=== PATIENT | male | born 1950 | race Caucasian/White ===

== ENCOUNTER 2020-05-18 10:48 | Outpatient (REF) | payer OTHER, SELFPAY ==
[2020-05-18 12:02] LABS: MANUAL DIFF FLAG NO
[2020-05-18 12:08] LABS: Basophils Absolute Auto 0.1 X10*3/uL (0.0-0.2); Basophils Percent Auto 0.6 % (0-2); Eosinophils Absolute Auto 0.2 X10*3/uL (0.0-0.4); Eosinophils Percent Auto 2.2 % (0-4); Hematocrit 41.2 % (42-52); Hemoglobin 13.1 g/dl (14.0-18.0); Imm Gran Abs Auto 0.03 X10*3/uL (0.00-0.03); Imm Gran Pct Auto 0.3 % (0.0-0.4); Lymphocytes Percent Auto 19.4 % (20-40); Mean Corpuscular HGB Conc 31.8 g/dl (31.0-36.0); Mean Corpuscular Volume 91.4 fL (80-98); Mean Platelet Volume 10.3 fL (9.4-12.4); Monocytes Absolute Auto 0.9 X10*3/uL (0.1-1.2); Monocytes Percent Auto 8.7 % (2-11); Neutrophils Absolute Auto 7.2 X10*3/uL (2.0-8.3); Neutrophils Percent Auto 68.8 % (45-73); Platelet Count 247 X10*3/uL (160-400); Red Blood Count 4.51 X10*6/uL (4.60-5.80); Red Cell Distribution Width 14.1 % (11.0-16.0); White Blood Count 10.5 X10*3/uL (4.8-10.8)
[2020-05-18 12:42] LABS: Anion Gap 17 (12-20); Blood Urea Nitrogen 37 mg/dL (9-16); Carbon Dioxide 23 mmol/L (22-29); Chloride 103 mmol/L (96-108); Cholesterol 136 mg/dL; Estimated Glomerular Filt Rate 48; Glucose Fasting 94 mg/dL (60-99); HDL Cholesterol 36 mg/dL; LDL Cholesterol Calculated 74 mg/dl; Potassium 5.8 mmol/l (3.3-5.1); Sodium 137 mmol/L (135-145); Triglycerides 131 mg/dL
[2020-05-18 12:44] LABS: Estimated Average Glucose 163 mg/dL; Hemoglobin A1c % 7.3 %
== END 2020-05-18 10:49 | disposition home or self-care (01) ==
LOC: HO.LAB 10:48
PROVIDERS: PCP Internal Medicine; Visit Provider Nurse Practitioner Family
DX: E11.9 Type 2 diabetes mellitus without complications (principal)
CPT/HCPCS: 36415; 80048; 80061; 83036; 85025

== ENCOUNTER 2020-06-09 15:03 | Outpatient (REF) | payer MEDICARE, SELFPAY ==
--- NOTE | 2020-06-09 16:12 | XR_ITS ---
EXAMINATION: XR CHEST CLINICAL INFORMATION: R09.89 - Other specified symptoms and signs involving the circulatory and respiratory systems COMPARISON: None TECHNIQUE: 2 views of the chest were obtained. FINDINGS: There is a unipolar AICD with right ventricular lead. There has been prior median sternotomy. The superiormost sternotomy wire is discontinuous. The heart is normal in size. The vascularity is normal. There is no vascular congestion, airspace consolidation, or groundglass opacity. The costophrenic sulci are clear. The hilar and mediastinal contours and visualized bony structures are unremarkable. XR/XR chest 2V IMPRESSION: Unremarkable examination.
== END 2020-06-09 15:04 | disposition home or self-care (01) ==
LOC: HO.XRAY 15:03
PROVIDERS: PCP Internal Medicine; Visit Provider Hospitalist
DX: R09.89 Other specified symptoms and signs involving the circulatory and respiratory systems (principal); R60.0 Localized edema; G47.34 Idiopathic sleep related nonobstructive alveolar hypoventilation
CPT/HCPCS: 71046; 99202

== ENCOUNTER → 2020-06-13 12:50 | Outpatient (REF) | payer MEDICARE, SELFPAY | LOC: HO.SL 12:50 | PROVIDERS: Visit Provider Hospitalist | DX: G47.33 Obstructive sleep apnea (adult) (pediatric) (principal) | CPT/HCPCS: 95806 ==

== ENCOUNTER 2020-06-13 14:17 | Outpatient (REF) | payer MEDICARE, SELFPAY | END 2020-06-13 14:18 | disposition home or self-care (01) | LOC: HO.LAB 14:17 | PROVIDERS: PCP Internal Medicine; Visit Provider Internal Medicine | DX: Z20.828 Contact with and (suspected) exposure to other viral communicable diseases (principal) | CPT/HCPCS: C9803; U0003 ==

== ENCOUNTER 2020-07-20 10:30 | Outpatient (REF) | payer MEDICARE, SELFPAY ==
[2020-07-20 12:35] LABS: B Type Natriuretic Peptide 101 pg/mL (<100)
[2020-07-20 12:42] LABS: Anion Gap 12 (12-20); Blood Urea Nitrogen 41 mg/dL (9-16); Calcium 9.1 mg/dL (8.4-10.2); Carbon Dioxide 28 mmol/L (22-29); Chloride 102 mmol/L (96-108); Estimated Glomerular Filt Rate 41; Glucose Random 172 mg/dL (60-115); Potassium 5.1 mmol/l (3.3-5.1); Sodium 137 mmol/L (135-145)
== END 2020-07-20 10:31 | disposition home or self-care (01) ==
LOC: HO.LAB 10:30
PROVIDERS: PCP Internal Medicine; Visit Provider Nurse Practitioner Family
DX: I42.9 Cardiomyopathy, unspecified (principal); I50.22 Chronic systolic (congestive) heart failure; I25.10 Atherosclerotic heart disease of native coronary artery without angina pectoris; Z95.1 Presence of aortocoronary bypass graft; Z95.810 Presence of automatic (implantable) cardiac defibrillator; I10 Essential (primary) hypertension; E78.5 Hyperlipidemia, unspecified
CPT/HCPCS: 80048; 83880; 93005; Q3014

== ENCOUNTER → 2020-08-03 10:37 | Outpatient (BNVA) | payer MEDICARE, SELFPAY | PROVIDERS: PCP Internal Medicine; Referring Provider Internal Medicine; Visit Provider Nurse Practitioner Gerontology | DX: Z13.89 Encounter for screening for other disorder (principal) | CPT/HCPCS: Q3014 ==

== ENCOUNTER 2020-08-08 08:49 | Outpatient (REF) | payer MEDICARE, SELFPAY ==
[2020-08-08 10:56] LABS: B Type Natriuretic Peptide 78 pg/mL (<100)
[2020-08-08 11:00] LABS: Alanine Aminotransferase 26 U/L (0-40); Albumin Level 3.8 g/dL (3.5-5.0); Alkaline Phosphatase 55 U/L (39-117); Anion Gap 14 (12-20); Aspartate Amino Transferase 29 U/L (5-37); Bilirubin Total 0.2 mg/dL (0.0-1.0); Blood Urea Nitrogen 25 mg/dL (9-16); Calcium 8.2 mg/dL (8.4-10.2); Carbon Dioxide 27 mmol/L (22-29); Chloride 100 mmol/L (96-108); Cholesterol 111 mg/dL; Estimated Glomerular Filt Rate 39; Glucose Fasting 201 mg/dL (60-99); HDL Cholesterol 35 mg/dL; LDL Cholesterol Calculated 52 mg/dl; Potassium 5.5 mmol/l (3.3-5.1); Sodium 135 mmol/L (135-145); Triglycerides 124 mg/dL
[2020-08-08 11:12] LABS: Estimated Average Glucose 151 mg/dL; Hemoglobin A1c % 6.9 %
[2020-08-08 11:41] LABS: Creatinine Urine 293.54 mg/dL
[2020-08-08 12:41] LABS: Microalbum/Creatinine Ratio Ur 2270.5 ug/mg cr
[2020-08-09 07:57] LABS: LDL Cholesterol Direct 52 mg/dL (<100)
== END 2020-08-08 08:50 | disposition home or self-care (01) ==
LOC: HO.LAB 08:49
PROVIDERS: Nurse Practitioner Family; Nurse Practitioner Gerontology; Visit Provider Internal Medicine
DX: Z20.822 Contact with and (suspected) exposure to COVID-19 (principal); I50.22 Chronic systolic (congestive) heart failure; E11.42 Type 2 diabetes mellitus with diabetic polyneuropathy
CPT/HCPCS: 36415; 80053; 80061; 82043; 83036; 83721; 83880; 99212; C9803; U0003

== ENCOUNTER 2020-08-08 09:31 | Outpatient (REF) | payer MEDICARE, SELFPAY | END 2020-08-08 09:32 | disposition home or self-care (01) | LOC: HO.LAB 09:31 | PROVIDERS: Visit Provider Nurse Practitioner Gerontology | DX: Z13.89 Encounter for screening for other disorder (principal) ==

== ENCOUNTER → 2020-08-11 14:21 | Outpatient (BNVA) | payer MEDICARE, SELFPAY | PROVIDERS: PCP Internal Medicine; Visit Provider Hospitalist | DX: J40 Bronchitis, not specified as acute or chronic (principal); G47.33 Obstructive sleep apnea (adult) (pediatric) | CPT/HCPCS: Q3014 ==

== ENCOUNTER 2020-08-19 12:37 | Outpatient (REF) | payer MEDICARE, SELFPAY | END 2020-08-19 12:38 | disposition home or self-care (01) | LOC: HO.LAB 12:37 | PROVIDERS: Visit Provider Internal Medicine | DX: Z20.822 Contact with and (suspected) exposure to COVID-19 (principal) | CPT/HCPCS: 36415; C9803; U0003 ==

== ENCOUNTER 2020-08-23 10:49 | Outpatient (REF) | payer MEDICARE, SELFPAY ==
[2020-08-23 12:29] LABS: Alanine Aminotransferase 28 U/L (0-40); Albumin Level 3.6 g/dL (3.5-5.0); Alkaline Phosphatase 52 U/L (39-117); Anion Gap 15 (12-20); Aspartate Amino Transferase 23 U/L (5-37); Bilirubin Total 0.4 mg/dL (0.0-1.0); Blood Urea Nitrogen 35 mg/dL (9-16); Calcium 10.2 mg/dL (8.4-10.2); Carbon Dioxide 28 mmol/L (22-29); Chloride 99 mmol/L (96-108); Estimated Glomerular Filt Rate 49; Glucose Fasting 126 mg/dL (60-99); Potassium 5.1 mmol/l (3.3-5.1); Sodium 137 mmol/L (135-145)
[2020-08-23 12:33] LABS: B Type Natriuretic Peptide 91 pg/mL (<100)
== END 2020-08-23 10:50 | disposition home or self-care (01) ==
LOC: HO.LAB 10:49
PROVIDERS: Absent Provider Nurse Practitioner Family; PCP Internal Medicine; Referring Provider Internal Medicine; Visit Provider Nurse Practitioner Gerontology
DX: I50.22 Chronic systolic (congestive) heart failure (principal); E11.65 Type 2 diabetes mellitus with hyperglycemia; I42.9 Cardiomyopathy, unspecified; Z79.4 Long term (current) use of insulin
CPT/HCPCS: 36415; 80048; 80053; 83880

== ENCOUNTER → 2020-08-30 13:00 | Outpatient (REF) | payer MEDICARE, SELFPAY ==
--- NOTE | 2020-08-30 13:04 | CA_ITS ---
Transthoracic Echocardiogram Patient (Last, First, Middle): Ed Erwin, Gender: Male Date of : 1950 Age: 70 Procedure Date: 08/30/2020 Procedure Type: Transthoracic Echocardiogram Location: OP Height: 170.18 cm Weight: 102.97 kg BSA: 2.13 m2 Heart Rate: bpm BP: 130 / 80 mmHg Painter Chassis: SATHYA Referring MD: Liz Caro [employer]C Symptoms: I42.9 - Cardiomyopathy, unspecified Study Quality: Technically Difficult ECG Rhythm: Sinus Conclusions: - The left ventricular systolic function is low normal. The visually estimated ejection fraction is between 50-55%. - There is mild calcification of the aortic valve. Findings Procedure Information Contrast agent, definity, is being given per protocol without apparent complications. Left Ventricle Normal left ventricular cavity size. There is mildly increased left ventricular wall thickness. The left ventricular systolic function is low normal. The visually estimated ejection fraction is between 50-55%. E/E prime ratio is between 8 and 15 consistent with indeterminate filling pressures. Evidence suggests grade I (mild) diastolic dysfunction. Right Ventricle Normal right ventricular cavity size and systolic function. There is an ICD wire seen in the right ventricle. Atria The left atrium is normal in size. The right atrium is normal in size. Aortic Valve There is a normal trileaflet aortic valve. There is mild calcification of the aortic valve. There is no aortic valve stenosis. There is no aortic valve regurgitation. Mitral Valve The mitral valve appears normal. There is no mitral valve regurgitation. There is no mitral valve stenosis. Pulmonic Valve The pulmonic valve was not well visualized. Tricuspid Valve There is trace tricuspid valve regurgitation. The pulmonary artery systolic pressure is normal. Great Vessels The aortic annulus, sinuses of valsalva, and asc aorta are normal in size. Venous The inferior vena cava is normal in size and collapses greater than 50% with inspiration. Pericardium/Pleural There is no evidence of pericardial effusion. Prior Study Comparison Changes noted compared to prior study dated: 09/04/2019. LVEF seems improved. Measurements 2D Linear Measurements IVSd: 1.04 0.6-0.9/0.6-1.0 cm LVIDd: 4.98 3.9-5.3/4.2-5.9 cm LVIDd Index: 2.34 2.4-3.2/2.2-3.1 cm/m2 LVIDs: 3.67 2.0-3.6 cm LVPWd: 1.03 0.7-1.1 cm Ao Root: 3.20 2.1-3.5 cm LA Diam: 4.10 2.7-3.8/3.0-4.0 cm LAIDs Index: 1.92 1.5-2.3 cm/m2 LV Mass: 235.97 67-162/88-224 g LV Mass Index: 110.79 43-95/49-115 g/m2 LVOT Diam: 2.10 3.0+(-)1.3 cm 2D Systolic Function EF 4C: 58.40 >55% EF 2C: 51.80 >55% Mitral Valve MV Pk E: 0.83 MV PK A: 1.09 MV Decel Time: 203.00 E/A: 0.80 E'Lateral: 7.07 E'Medial: 4.46 E/E' Med: 18.50 E/E' Lat: 11.70 PHT: 59.00 MVA PHT: 3.73 Decel Boyd: 4.08 Aortic Valve AoV Pk Teddy: 1.25 AoV Mn Teddy: 0.95 AoV VTI: 0.26 AoV Pk Grad: 6.00 Aov Mn Grad: 4.00 NAM Cont.VTI: 2.35 LVOT LVOT Pk Teddy: 0.78 LVOT Mn Teddy: 0.53 LVOT VTI: 0.18 LVOT Pk Grad: 2.00 LVOT Mn Grad: 1.00 LVOT Diam: 2.10 LVOT Area: 3.46 Diastolic Function MV Pk E: 0.83 MV Pk A: 1.09 E/A: 0.80 E'Medial: 4.46 E/E' Med: 18.50 E' Laterial: 7.07 E/E' Lat: 11.70 Tricuspid Valve TR Pk Teddy: 2.46 TR Pk Grad: 24.00 RA Press: 8.00 RVSP: 32.00 Great Vessels Aorta Ao Root-2D: 3.20 2.0-3.7 cm Ao Asc: 3.40 2.1-3.4 cm Updated in Other Vendor System with Status of Final Joey Vickers MD electronically signed on 08/31/2020 11:35:44 AM with status of Final
== END ==
LOC: HO.CARD 13:00
PROVIDERS: Visit Provider Nurse Practitioner Family
DX: I42.9 Cardiomyopathy, unspecified (principal)
CPT/HCPCS: 93306; Q9957

== ENCOUNTER → 2020-09-02 09:55 | Outpatient (BNVA) | payer MEDICARE, SELFPAY | PROVIDERS: PCP Internal Medicine; Visit Provider Nurse Practitioner Gerontology | DX: Z13.89 Encounter for screening for other disorder (principal) | CPT/HCPCS: Q3014 ==

== ENCOUNTER 2020-09-08 13:52 | Outpatient (REF) | payer MEDICARE, SELFPAY ==
--- NOTE | ~2020-09-08 | US_ITS ---
EXAMINATION: US RETROPERITONEAL LIMITED (RENAL ONLY) CLINICAL INFORMATION: Chronic kidney disease, stage III. COMPARISON: None TECHNIQUE: Real-time imaging of the kidneys. FINDINGS: RIGHT KIDNEY: 12.2 x 5.5 x 5.3 cm (SAG x AP x TRV). The kidney is normal in size, contour, and echogenicity. Renal cortical thickness is normal. No renal calculi or hydronephrosis. 1.1 x 1.5 x 1.3 cm cyst at the midpole. LEFT KIDNEY: 12.7 x 5.5 x 3.7 cm (SAG x AP x TRV). The kidney is normal in size, contour, and echogenicity. Renal cortical thickness is normal. No calculi or focal parenchymal lesions. No hydronephrosis. US/US renal BI IMPRESSION: Right midpole renal cyst. Otherwise unremarkable appearance of the kidneys.
== END 2020-09-08 13:53 | disposition home or self-care (01) ==
LOC: HO.US 13:52
PROVIDERS: Visit Provider Internal Medicine Hypertension Specialist
DX: I12.9 Hypertensive chronic kidney disease with stage 1 through stage 4 chronic kidney disease, or unspecified chronic kidney disease (principal); N18.30 Chronic kidney disease, stage 3 unspecified
CPT/HCPCS: 76775

== ENCOUNTER → 2020-10-14 13:00 | Outpatient (BNVA) | payer MEDICARE, SELFPAY | PROVIDERS: PCP Internal Medicine; Visit Provider Nurse Practitioner Gerontology | DX: E11.649 Type 2 diabetes mellitus with hypoglycemia without coma (principal); E11.42 Type 2 diabetes mellitus with diabetic polyneuropathy; E66.01 Morbid (severe) obesity due to excess calories; Z68.35 Body mass index [BMI] 35.0-35.9, adult; E78.5 Hyperlipidemia, unspecified; I10 Essential (primary) hypertension; Z79.4 Long term (current) use of insulin; Z71.3 Dietary counseling and surveillance | CPT/HCPCS: 82947; 99212 ==

== ENCOUNTER → 2020-10-21 14:03 | Outpatient (BNVA) | payer MEDICARE, SELFPAY | PROVIDERS: PCP Internal Medicine; Visit Provider Hospitalist | DX: J45.40 Moderate persistent asthma, uncomplicated (principal); G47.33 Obstructive sleep apnea (adult) (pediatric); B94.8 Sequelae of other specified infectious and parasitic diseases; Z79.899 Other long term (current) drug therapy | CPT/HCPCS: 99212 ==

== ENCOUNTER → 2020-10-27 13:52 | Outpatient (BNVA) | payer MEDICARE, SELFPAY | PROVIDERS: PCP Internal Medicine; Visit Provider Internal Medicine | DX: I25.5 Ischemic cardiomyopathy (principal); I50.33 Acute on chronic diastolic (congestive) heart failure; I25.10 Atherosclerotic heart disease of native coronary artery without angina pectoris; Z95.1 Presence of aortocoronary bypass graft; Z95.810 Presence of automatic (implantable) cardiac defibrillator | CPT/HCPCS: 99212 ==

== ENCOUNTER 2020-11-10 10:40 | Outpatient (REF) | payer MEDICARE, SELFPAY ==
[2020-11-10 11:39] LABS: B Type Natriuretic Peptide 148 pg/mL (<100)
[2020-11-10 11:46] LABS: Anion Gap 13 (12-20); Blood Urea Nitrogen 36 mg/dL (9-16); Calcium 8.7 mg/dL (8.4-10.2); Carbon Dioxide 26 mmol/L (22-29); Chloride 103 mmol/L (96-108); Estimated Glomerular Filt Rate 39; Glucose Random 142 mg/dL (60-115); Potassium 5.9 mmol/L (3.3-5.1); Sodium 136 mmol/L (135-145)
== END 2020-11-10 10:41 | disposition home or self-care (01) ==
LOC: HO.LAB 10:40
PROVIDERS: PCP Internal Medicine; Visit Provider Internal Medicine
DX: I50.33 Acute on chronic diastolic (congestive) heart failure (principal); E11.649 Type 2 diabetes mellitus with hypoglycemia without coma; E11.42 Type 2 diabetes mellitus with diabetic polyneuropathy; E78.5 Hyperlipidemia, unspecified; E66.01 Morbid (severe) obesity due to excess calories; Z68.36 Body mass index [BMI] 36.0-36.9, adult; Z79.4 Long term (current) use of insulin
CPT/HCPCS: 36415; 80048; 82947; 83880; 99212

== ENCOUNTER 2020-11-22 09:05 | Outpatient (REF) | payer MEDICARE, SELFPAY ==
[2020-11-22 10:29] LABS: Anion Gap 14 (12-20); Blood Urea Nitrogen 24 mg/dL (9-16); Calcium 8.5 mg/dL (8.4-10.2); Carbon Dioxide 29 mmol/L (22-29); Chloride 102 mmol/L (96-108); Estimated Glomerular Filt Rate 49; Glucose Random 105 mg/dL (60-115); Sodium 141 mmol/L (135-145)
== END 2020-11-22 09:06 | disposition home or self-care (01) ==
LOC: HO.LAB 09:05
PROVIDERS: Visit Provider Internal Medicine
DX: I50.33 Acute on chronic diastolic (congestive) heart failure (principal)
CPT/HCPCS: 36415; 80048

== ENCOUNTER → 2021-01-16 15:05 | Outpatient (BNVA) | payer MEDICARE, SELFPAY | PROVIDERS: PCP Internal Medicine; Visit Provider Internal Medicine | DX: I50.32 Chronic diastolic (congestive) heart failure (principal); I25.10 Atherosclerotic heart disease of native coronary artery without angina pectoris; Z95.1 Presence of aortocoronary bypass graft; Z95.810 Presence of automatic (implantable) cardiac defibrillator; Z79.899 Other long term (current) drug therapy | CPT/HCPCS: 99212 ==

== ENCOUNTER 2021-01-17 12:28 | Outpatient (REF) | payer MEDICARE, SELFPAY ==
[2021-01-17 14:11] LABS: Glucose Urine UA NEG (NEG); Leukocyte Esterase Urine NEG (NEG); Nitrite Urine NEG (NEG); Specific Gravity - Urine 1.015 (1.005-1.025); Urine Blood NEG (NEG); Urine Ketones NEG (NEG); Urine Protein 1+ MG/DL (NEG-TRACE)
[2021-01-17 14:19] LABS: Appearance Urine HAZY; Color Urine YELLOW
[2021-01-17 14:39] LABS: RBC Urine 0 /HPF (0); WBC Urine 0 /HPF (0-4)
[2021-01-17 15:01] LABS: Creatinine Urine 55.82 mg/dL; Protein/Creatinine Ratio, Ur 0.61 (<0.2); Total Protein Urine Random 34 mg/dL (<12)
== END 2021-01-17 12:29 | disposition home or self-care (01) ==
LOC: HO.LAB 12:28
PROVIDERS: PCP Internal Medicine; Visit Provider Internal Medicine Hypertension Specialist
DX: E11.22 Type 2 diabetes mellitus with diabetic chronic kidney disease (principal); N18.31 Chronic kidney disease, stage 3a
CPT/HCPCS: 81001; 84156

== ENCOUNTER → 2021-01-26 11:27 | Outpatient (BNVA) | payer MEDICARE, SELFPAY | PROVIDERS: PCP Internal Medicine; Visit Provider Hospitalist | DX: J45.40 Moderate persistent asthma, uncomplicated (principal); G47.33 Obstructive sleep apnea (adult) (pediatric); R06.00 Dyspnea, unspecified | CPT/HCPCS: 99212 ==

== ENCOUNTER 2021-04-16 12:04 | Emergency (ER) | payer MEDICARE, SELFPAY ==
--- NOTE | ~2021-04-16 | CT_ITS ---
EXAMINATION: CT HEAD WITHOUT CONTRAST CT CERVICAL SPINE WITHOUT CONTRAST CT MAXILLOFACIAL WITHOUT CONTRAST CLINICAL INFORMATION: Unwitnessed fall with left eye trauma. On aspirin. Head strike. COMPARISON: None. TECHNIQUE: Multidetector volumetric imaging of the head was performed without the administration of intravenous contrast. Images were also obtained with through the cervical spine as well as the facial bones from the frontal sinuses through the mandible. Multiplanar reconstructed images in coronal and sagittal orientations were submitted. This CT examination was performed using dose optimization techniques as appropriate, variously including the following: *Automated exposure control *Adjustment of mA and/or kV according to patient size (this includes techniques or standardized protocols for targeted exams where dose is matched to indication/reason for exam; i.e. extremities or head) *Use of iterative reconstruction technique DOSE: 1881 mGy-cm FINDINGS: HEAD: There is no evidence of acute intracranial hemorrhage or territorial infarction. No abnormal mass-effect or midline shift. No extra-axial fluid collections. Junior to white matter differentiation is well preserved. The ventricles are normal in size and configuration. A few foci of hypoattenuation in the subcortical and periventricular white matter are most consistent with chronic microangiopathic changes. Calcific atherosclerosis is present within the cavernous and supraclinoid segments of the internal carotid arteries. The soft tissues and osseous structures are normal. Globes are aphakic. Cerumen is present in the external auditory canals. The sinuses and mastoid air cells are clear. MAXILLOFACIAL: The mandible, maxilla, pterygoid plates, nasal bones, zygomatic arches, paranasal sinus moore, and bony orbits are intact. No acute osseous abnormality within the maxillofacial region. Globes appear symmetric and aphakic. Intraconal and extraconal fat is normal. Extraocular muscles are unremarkable. Multiple dental caries are noted. Periapical lucencies are noted the remaining right maxillary bicuspids and molars as well as the remaining left mandibular molar, consistent with apical periodontitis. The paranasal sinuses and mastoid air cells remain well-aerated. No significant soft tissue findings. CERVICAL SPINE: Vertebral body heights are normal. No fractures of the vertebral bodies or posterior elements. Vertebral alignment is normal. No subluxation. Degenerative changes are present at the craniocervical and atlantoaxial articulations, though normal alignment is maintained. Mild multilevel degenerative disc disease in cervical spine is characterized primarily by endplate osteophytes. There is mild/moderate multilevel facet arthropathy, most notably on the right at C5-C6. No acute compromise of the central canal or neural foramina. Ossification is noted in the nuchal ligament.. No significant paravertebral soft tissue swelling. Cervical soft tissues are unremarkable. Imaged portions of the lung apices are clear. CT/CT cervical spine wo con IMPRESSION: 1. No acute intracranial pathology. Mild chronic cerebral changes of microangiopathy. 2. No acute facial fractures or significant soft tissue injuries. 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 3. No acute fracture or malalignment in the cervical spine.
[2021-04-16 12:14] VITALS: BP 116/69; PULSE 77; RESP 18; TEMP 36.6; O2SAT 95; BMI 31.6
--- NOTE | 2021-04-16 13:10 | ED.FALL ---
HPI - Fall General Chief Complaint: Fall Stated Complaint: fall - face & arm injury Time Seen by Provider: 04/16/21 12:50 Source: patient and family Mode of arrival: ambulatory Limitations: no limitations History of Present Illness HPI Narrative: 70 y/o male with history of DM, ischemic CMP, CAD s/p CABG, HLD, HTN, ROE who presents to the ER for evaluation of a minor headache after he fell out of bed last night in the middle of the night and hit his head on the side table. He presents with his grandson who he lives with to help provide history. Patient reports having dreams about fighting someone and remembers falling out of bed when he was having this nightmare. He hit under his left eye, his left ear, and his left forearm. He did not lose consciousness. He is on aspirin. He went back to bed after the event. He told his grandson about it this morning and he reported a 3/10 generalized headache so he was brought to the ER for further evaluation. MD complaint: fall Onset (ago): hour(s) (10) Fall from: out of bed Fall witnessed: no Place fall occurred: home Loss of consciousness: none Prolonged down time: no Symptoms prior to fall: none Location of injury: head, face and eyes Location of injury - extremities: left: arm Severity: mild Severity scale (1-10): 3 Quality: aching Associated symptoms (after fall): headache Related Data Home Medications Medication Instructions Recorded Confirmed blood sugar diagnostic #10 ea 10/14/20 01/26/21 Previous Rx's Medication Instructions Recorded albuterol sulfate 90 mcg/actuation 2 inh INHALATION Q6H PRN 30 Days 10/05/20 aerosol inhaler #18 g aspirin 81 mg tablet,delayed 81 mg PO DAILY #90 tab 10/05/20 release (Enteric Coated Aspirin) blood-glucose meter (FreeStyle #1 ea 10/05/20 Lite Meter) lancets #100 ea 10/05/20 budesonide-formoterol HFA 160 2 puff INHALATION BID 30 Days 10/23/20 mcg-4.5 mcg/actuation aerosol #10.2 g inhaler (Symbicort) diabetic shoes and 3 inserts #1 ea 11/10/20 insulin aspart U-100 100 unit/mL See Rx Instructions SUBCUT QID 30 11/10/20 (3 mL) subcutaneous pen (Novolog Days #90 ml Flexpen U-100 Insulin aspart) ramipril 10 mg capsule 10 mg PO DAILY #90 cap 11/24/20 trazodone 50 mg tablet 50 mg PO BEDTIME 90 Days #90 tab 12/20/20 galantamine 8 mg 24 hr 8 mg PO QAM #90 cap 01/04/21 capsule,extended release metformin 1,000 mg tablet 1,000 mg PO BID #180 tab 01/04/21 metoprolol succinate 100 mg 100 mg PO DAILY #90 tab 01/04/21 tablet,extended release 24 hr pen needle, diabetic 32 gauge x #50 ea 03/02/21 dulaglutide 0.75 mg/0.5 mL 0.75 mg SUBCUT QWEEK #2 ml 03/05/21 subcutaneous pen injector (TrulicRebel Monkey) insulin glargine U-300 conc 300 65 unit SUBCUT DAILY #9 ml 03/07/21 unit/mL (3 mL) subcutaneous pen (Toujeo Max U-300 SoloStar) lancets 28 gauge (FreeStyle 1 gauge TOPICAL TID #100 ea 03/07/21 Lancets) meclizine 12.5 mg tablet 12.5 mg PO Q12H PRN #30 tab 03/31/21 furosemide 20 mg tablet 20 mg PO DAILY #30 tab 04/06/21 amlodipine 5 mg tablet 5 mg PO DAILY #90 tab 04/09/21 famotidine 20 mg tablet 20 mg PO BEDTIME #90 tab 04/09/21 folic acid 1 mg tablet 1 mg PO DAILY #90 tab 04/09/21 levothyroxine 50 mcg tablet 50 mcg PO QAM #90 tab 04/09/21 pramipexole 0.5 mg tablet 0.5 mg PO DAILY #90 tab 04/09/21 rosuvastatin 40 mg tablet 40 mg PO DAILY #90 tab 04/10/21 Allergies Allergy/AdvReac Type Severity Reaction Status Date / Time Penicillins Allergy Intermediate ITCHING Verified 04/16/21 12:14 Review of Systems Review of Systems: Constitutional: No Fever, No Chills ENT/Mouth: No sore throat, No Rhinorrhea, No Swallowing Difficulty Eyes: + Eye Pain, No Swelling, No Redness Cardiovascular: No Chest Pain, No SOB, No Orthopnea, No Edema Gastrointestinal: No Nausea, No Vomiting, No abdominal Pain Musculoskeletal: No joint pain, No Myalgias Skin: + Skin Lesions, No rash Neuro: No Weakness, No Numbness, No Dizziness, + Headache Psych: No Anxiety/Panic, No Depression Heme/Lymph: + Bruising, No Lymphadenopathy Endocrine: No Polyuria, No Polydipsia [facility] Past Medical History Medical History Atherosclerotic cardiovascular disease Bibasilar crackles CAD (coronary artery disease) Chronic systolic (congestive) heart failure Delusion of persecution Dyspnea Essential hypertension GERD (gastroesophageal reflux disease) HTN (hypertension) Hyperlipidemia LDL goal <70 Hypothyroidism ICD (implantable cardioverter-defibrillator) in place Insomnia Ischemic cardiomyopathy Obesity due to excess calories ROE (obstructive sleep apnea) ROE on CPAP [id number] syndrome Reactive airway disease Sleep apnea Type 2 diabetes mellitus with diabetic polyneuropathy Type 2 diabetes mellitus with hyperglycemia, with long-term current use of insulin Surgical History History of bilateral cataract extraction History of open heart surgery Hx of CABG (~2019) Family History Family History Father No problems noted. Mother CVD (cardiovascular disease) Social History Social History Household Members: Spouse Housing: Apartment Alcohol intake: never Patient Tobacco Use Status: Never used Tobacco e-Cigarette/Vaping Use: Never Used Second Hand Smoke Exposure: No Advance Directives: No Advance Directives Information Provided: No Current occupational status: retired Physical Exam Vital Signs: Vital Signs: Last Vital Signs Temp 97.9 F 04/16/21 12:14 Pulse 77 04/16/21 12:14 Resp 18 04/16/21 12:14 BP 116/69 04/16/21 12:14 Pulse Ox 95 04/16/21 12:14 Body Mass Index 31.6 Appearance: Alert. Oriented X3. No acute distress. Head: normocephalic, atraumatic. Eyes: Pupils equal, round and reactive to light. EOMI, no nystagmus ENT: Pharynx normal. No dental trauma. Left central ear auricle with superficial laceration without bleeding <1cm. Neck: Normal inspection. Neck supple. No cervical spinal tenderness. CVS: Normal heart rate and rhythm. Pulses normal. Respiratory: No respiratory distress. Breath sounds normal. Abdomen: Soft and nontender. +BS x4 Skin: Skin warm and dry. Normal skin color. Normal skin turgor. No rashes. Extremities: No lower extremity edema. Left forearm with 3cm superfical skin tear to the distal aspect of the dorsal forearm. normal ROM and palpation of left wrist, elbow and shoulder. Neuro: Oriented X 3. No motor deficit. No sensory deficit. Course Course Course Narrative: 70 y/o male with multiple medical problems presents for evaluation s/p fall out of bed last night while having a nightmare. Superifical and minor abrasion/lacs on exam. CT scans are pending. Reevaluation(s) Reevaluation #1: CT head, face, and neck are all unremarkable for acute injury. He remains stable. Comfortable with d/c home with family and outpatient follow up. Neuro intact, steady gait. Discharge Plan Discharge Clinical Impression: Skin tear Fall against sharp object Qualifiers: Encounter type: initial encounter Qualified Code(s): W01.119A - Fall on same level from slipping, tripping and stumbling with subsequent striking against unspecified sharp object, initial encounter Laceration of ear Qualifiers: Encounter type: initial encounter Laterality: left Qualified Code(s): S01.312A - Laceration without foreign body of left ear, initial encounter Patient Disposition: Home, Self-Care Instructions: Laceration Without Closure (ED) Additional Instructions: Your CT scans today did not show any acute injuries. Recommend local wound care with topical antibiotic ointment. Keep wounds cleaned and covered. Follow up with your doctor this week. If you develop new or worsening symptoms call 911 or come back to the ER for further evaluation. Prescriptions: No Action albuterol sulfate 90 mcg/actuation HFA aerosol inhaler 2 inh inhalation Q6H PRN (Reason: shortness of breath or wheezing) 30 Days Qty: 18 RF: 12 aspirin [Enteric Coated Aspirin] 81 mg tablet,delayed release (DR/EC) 81 mg PO DAILY Qty: 90 RF: 4 (DME) blood-glucose meter [FreeStyle Lite Meter] Kit See Rx Instructions .ROUTE .MEDSUPPLY Qty: 1 RF: 0 (DME) lancets Misc See Rx Instructions .MEDSUPPLY Qty: 100 RF: 0 ramipril 10 mg capsule 10 mg PO DAILY Qty: 90 RF: 1 trazodone 50 mg tablet 50 mg PO BEDTIME 90 Days Qty: 90 RF: 1 metformin 1,000 mg tablet 1,000 mg PO BID Qty: 180 RF: 1 galantamine 8 mg capsule,ext rel. pellets 24 hr 8 mg PO QAM Qty: 90 RF: 1 metoprolol succinate 100 mg tablet extended release 24 hr 100 mg PO DAILY Qty: 90 RF: 1 (DME) pen needle, diabetic 32 gauge x 5/32 needle See Rx Instructions ea subcut .MEDSUPPLY Qty: 50 RF: 6 Trulicity 0.75 mg/0.5 mL pen injector 0.75 mg subcut QWEEK Qty: 2 RF: 2 Toujeo Max U-300 SoloStar 300 unit/mL (3 mL) insulin pen 65 unit subcut DAILY Qty: 9 RF: 1 lancets [FreeStyle Lancets] 28 gauge misc 1 gauge topical TID Qty: 100 RF: 1 meclizine 12.5 mg tablet 12.5 mg PO Q12H PRN (Reason: for dizziness) Qty: 30 RF: 0 furosemide 20 mg tablet 20 mg PO DAILY Qty: 30 RF: 0 amlodipine 5 mg tablet 5 mg PO DAILY Qty: 90 RF: 0 levothyroxine 50 mcg tablet 50 mcg PO QAM Qty: 90 RF: 0 pramipexole 0.5 mg tablet 0.5 mg PO DAILY Qty: 90 RF: 0 folic acid 1 mg tablet 1 mg PO DAILY Qty: 90 RF: 0 famotidine 20 mg tablet 20 mg PO BEDTIME Qty: 90 RF: 0 rosuvastatin 40 mg tablet 40 mg PO DAILY Qty: 90 RF: 1 budesonide-formoterol [Symbicort] 160-4.5 mcg/actuation HFA aerosol inhaler 2 puff inhalation BID 30 Days Qty: 10.2 RF: 11 (DME) FreeStyle Lite Strips Strip See Rx Instructions ea Not Applicable QID Qty: 10 RF: 0 (DME) diabetic shoes and 3 inserts See Rx Instructions .Route .MEDSUPPLY Qty: 1 RF: 0 insulin aspart U-100 [Novolog Flexpen U-100 Insulin] 100 unit/mL (3 mL) insulin pen See Rx Instructions subcut QID 30 Days Qty: 90 RF: 2 Referrals: Sophie Enrique MD [Primary Care Provider] - 1 week (f/u fall out of bed) Interventions: ED Discharge Assessment Last Done: 04/16/21 15:47 Discharge Date/Time: 04/16/21 15:48
[2021-04-16] MEDS: Diphth,Pertus(ACell),Tet Adult 0.5 ML SYRINGE IM (13:30)
== END 2021-04-16 15:48 | disposition home or self-care (01) ==
PROVIDERS: Emergency Provider Emergency Medicine; PCP Internal Medicine
DX: S01.312A Laceration without foreign body of left ear, initial encounter (principal); H92.02 Otalgia, left ear; I25.10 Atherosclerotic heart disease of native coronary artery without angina pectoris; I10 Essential (primary) hypertension; R51.9 Headache, unspecified; W06.XXXA Fall from bed, initial encounter; Y93.9 Activity, unspecified; Y92.9 Unspecified place or not applicable; Y99.9 Unspecified external cause status; Z79.899 Other long term (current) drug therapy
CPT/HCPCS: 70450; 70486; 72125; 90471; 90715; 99283; 99284

== ENCOUNTER → 2021-05-11 09:48 | Outpatient (BNVA) | payer MEDICARE, SELFPAY | PROVIDERS: PCP Internal Medicine; Visit Provider Nurse Practitioner Gerontology | DX: E11.649 Type 2 diabetes mellitus with hypoglycemia without coma (principal); E11.42 Type 2 diabetes mellitus with diabetic polyneuropathy; E78.5 Hyperlipidemia, unspecified; E66.01 Morbid (severe) obesity due to excess calories; I10 Essential (primary) hypertension; Z79.4 Long term (current) use of insulin; Z68.36 Body mass index [BMI] 36.0-36.9, adult | CPT/HCPCS: 82947; 83036; 99212 ==

== ENCOUNTER 2021-05-23 09:12 | Outpatient (REF) | payer MEDICARE, SELFPAY ==
[2021-05-23 10:36] LABS: Alanine Aminotransferase 18 U/L (0-40); Albumin Level 3.7 g/dL (3.5-5.0); Alkaline Phosphatase 70 U/L (39-117); Anion Gap 14 (12-20); Aspartate Amino Transferase 18 U/L (5-37); Bilirubin Total 0.2 mg/dL (0.0-1.0); Blood Urea Nitrogen 28 mg/dL (9-16); Calcium 9.6 mg/dL (8.4-10.2); Carbon Dioxide 28 mmol/L (22-29); Chloride 103 mmol/L (96-108); Estimated Glomerular Filt Rate 42; Glucose Random 89 mg/dL (60-115); Potassium 5.5 mmol/L (3.3-5.1); Sodium 139 mmol/L (135-145)
[2021-05-25 15:37] LABS: Calcium (PTHI) 9.6 mg/dL (8.6-10.3); PTHI 44 pg/mL (14-64)
== END 2021-05-23 09:13 | disposition home or self-care (01) ==
LOC: HO.LAB 09:12
PROVIDERS: PCP Nurse Practitioner Gerontology; Visit Provider Internal Medicine Hypertension Specialist
DX: N18.31 Chronic kidney disease, stage 3a (principal)
CPT/HCPCS: 36415; 80053; 83970

== ENCOUNTER → 2021-07-21 13:06 | Outpatient (BNVA) | payer MEDICARE, SELFPAY | PROVIDERS: PCP Internal Medicine; Visit Provider Hospitalist | DX: G47.33 Obstructive sleep apnea (adult) (pediatric) (principal); J45.40 Moderate persistent asthma, uncomplicated; R06.00 Dyspnea, unspecified | CPT/HCPCS: 99212 ==

== ENCOUNTER → 2021-08-23 12:44 | Outpatient (BNVA) | payer MEDICARE, SELFPAY | PROVIDERS: PCP Internal Medicine; Referring Provider Internal Medicine; Visit Provider Internal Medicine | DX: I25.10 Atherosclerotic heart disease of native coronary artery without angina pectoris (principal); I50.32 Chronic diastolic (congestive) heart failure; Z95.1 Presence of aortocoronary bypass graft; Z95.810 Presence of automatic (implantable) cardiac defibrillator | CPT/HCPCS: 93005; 99212 ==

== ENCOUNTER 2021-09-05 09:01 | Outpatient (REF) | payer MEDICARE, SELFPAY ==
[2021-09-05 10:35] LABS: Alanine Aminotransferase 28 U/L (0-40); Albumin Level 3.7 g/dL (3.5-5.0); Alkaline Phosphatase 58 U/L (39-117); Anion Gap 12 (12-20); Aspartate Amino Transferase 20 U/L (5-37); Bilirubin Total 0.4 mg/dL (0.0-1.0); Blood Urea Nitrogen 22 mg/dL (9-16); Calcium 9.5 mg/dL (8.4-10.2); Carbon Dioxide 29 mmol/L (22-29); Chloride 101 mmol/L (96-108); Cholesterol 209 mg/dL; Estimated Glomerular Filt Rate 44; Glucose Fasting 158 mg/dL (60-99); HDL Cholesterol 35 mg/dL; LDL Cholesterol Calculated 142 mg/dl; Potassium 5.7 mmol/L (3.3-5.1); Sodium 136 mmol/L (135-145); Triglycerides 163 mg/dL
[2021-09-05 10:59] LABS: Vitamin D 25-OH Total 25.2 ng/mL (>30)
[2021-09-05 11:14] LABS: Creatinine Urine 109.88 mg/dL
[2021-09-05 11:32] LABS: Microalbum/Creatinine Ratio Ur 1115.7 ug/mg cr
[2021-09-06 07:57] LABS: LDL Cholesterol Direct 148 mg/dL (<100)
== END 2021-09-05 09:02 | disposition home or self-care (01) ==
LOC: HO.LAB 09:01
PROVIDERS: PCP Internal Medicine; Visit Provider Nurse Practitioner Gerontology
DX: E11.65 Type 2 diabetes mellitus with hyperglycemia (principal); E55.9 Vitamin D deficiency, unspecified; Z79.4 Long term (current) use of insulin
CPT/HCPCS: 36415; 80053; 80061; 82043; 82306; 83721

== ENCOUNTER → 2021-09-12 10:49 | Outpatient (BNVA) | payer MEDICARE, SELFPAY | PROVIDERS: PCP Internal Medicine; Visit Provider Nurse Practitioner Gerontology | DX: E11.649 Type 2 diabetes mellitus with hypoglycemia without coma (principal); E11.42 Type 2 diabetes mellitus with diabetic polyneuropathy; E78.5 Hyperlipidemia, unspecified; E66.01 Morbid (severe) obesity due to excess calories; E87.5 Hyperkalemia; I10 Essential (primary) hypertension; Z79.4 Long term (current) use of insulin; Z68.34 Body mass index [BMI] 34.0-34.9, adult | CPT/HCPCS: 82947; 83036; 99212 ==

== ENCOUNTER → 2021-10-27 13:14 | Outpatient (BNVA) | payer MEDICARE, SELFPAY | PROVIDERS: PCP Internal Medicine; Visit Provider Hospitalist | DX: J45.40 Moderate persistent asthma, uncomplicated (principal); G47.33 Obstructive sleep apnea (adult) (pediatric); R06.00 Dyspnea, unspecified | CPT/HCPCS: 99212 ==

== ENCOUNTER 2021-10-30 17:04 | Outpatient (REF) | payer OTHER, SELFPAY ==
[2021-10-30 17:51] LABS: Hematocrit 43.5 % (42.0-52.0); Hemoglobin 14.1 g/dl (14.0-18.0); Mean Corpuscular HGB Conc 32.4 g/dl (31.0-36.0); Mean Corpuscular Hemoglobin 29.1 pg (27.0-33.0); Mean Corpuscular Volume 89.7 fL (80.0-98.0); Mean Platelet Volume 9.7 fL (9.4-12.4); Platelet Count 267 X10*3/uL (160-400); Red Blood Count 4.85 X10*6/uL (4.60-5.80); Red Cell Distribution Width 13.6 % (11.0-16.0); White Blood Count 12.7 X10*3/uL (4.8-10.8)
[2021-10-30 18:12] LABS: Anion Gap 13 (12-20); Blood Urea Nitrogen 22 mg/dL (9-16); Calcium 10.4 mg/dL (8.4-10.2); Carbon Dioxide 30 mmol/L (22-29); Chloride 101 mmol/L (96-108); Estimated Glomerular Filt Rate 38; Potassium 5.4 mmol/L (3.3-5.1); Sodium 139 mmol/L (135-145)
[2021-10-30 18:22] LABS: Creatinine Urine 344.88 mg/dL
[2021-10-30 18:46] LABS: Total Protein Urine Random 552 mg/dL (<12)
[2021-10-31 14:41] LABS: Calcium (PTHI) 10.3 mg/dL (8.6-10.3); PTHI 25 pg/mL (16-77)
== END 2021-10-30 17:05 | disposition home or self-care (01) ==
LOC: HO.LAB 17:04
PROVIDERS: PCP Internal Medicine; Visit Provider Internal Medicine Hypertension Specialist
DX: N18.31 Chronic kidney disease, stage 3a (principal)
CPT/HCPCS: 36415; 80051; 82310; 82565; 83970; 84156; 84520; 85027

== ENCOUNTER → 2021-12-01 08:23 | Outpatient (REF) | payer OTHER, SELFPAY ==
--- NOTE | 2021-12-01 08:27 | CA_ITS ---
Transthoracic Echocardiogram Patient (Last, First, Middle): Ed Erwin, Gender: Male Date of : 1950 Age: 71 Procedure Date: 12/01/2021 Procedure Type: Transthoracic Echocardiogram Location: OP Height: 170.18 cm Weight: 98.88 kg BSA: 2.10 m2 Heart Rate: bpm BP: 120 / 66 mmHg Housing Officer: SATHYA Referring MD: Joey Vickers MD Symptoms: I25.10 - Atherosclerotic heart disease of [place] coronary... Study Quality: Technically Difficult/Contrast Conclusions: - The left ventricular systolic function is mildly decreased. The calculated ejection fraction is 45% by biplane method. - There is evidence of regional wall motion abnormalities. - No obvious valvular pathology seen on this study. Findings Procedure Information Contrast agent, definity, is being given per protocol without apparent complications. Left Ventricle Normal left ventricular cavity size. There is mildly increased left ventricular wall thickness. The left ventricular systolic function is mildly decreased. The calculated ejection fraction is 45% by biplane method. There is evidence of regional wall motion abnormalities. E/E prime ratio is between 8 and 15 consistent with indeterminate filling pressures. Evidence suggests grade I (mild) diastolic dysfunction. Wall Motion Rest Echo Findings The apical septum and mid anteroseptal segments are hypokinetic. The apical anterior and mid anterior segments are akinetic. Atria Both atria are normal in size. Aortic Valve There is a normal trileaflet aortic valve. There is no aortic valve stenosis. There is no aortic valve regurgitation. Mitral Valve The mitral valve appears normal. There is mild mitral valve regurgitation. There is no mitral valve stenosis. Pulmonic Valve The pulmonic valve is likely normal. Tricuspid Valve There is trace tricuspid valve regurgitation. The pulmonary artery systolic pressure is normal. Great Vessels The aortic annulus, sinuses of valsalva, and asc aorta are normal in size. Venous The inferior vena cava is normal in size and collapses greater than 50% with inspiration. Pericardium/Pleural There is no evidence of pericardial effusion. Prior Study Comparison No significant change compared to prior study dated: 08/30/2020. (images reviewed) Recommendations, Care & Conclusions No obvious valvular pathology seen on this study. Measurements 2D Linear Measurements IVSd: 1.05 0.6-0.9/0.6-1.0 cm LVIDd: 4.52 3.9-5.3/4.2-5.9 cm LVIDd Index: 2.15 2.4-3.2/2.2-3.1 cm/m2 LVIDs: 3.01 2.0-3.6 cm LVPWd: 1.05 0.7-1.1 cm LA Diam: 4.10 2.7-3.8/3.0-4.0 cm LAIDs Index: 1.95 1.5-2.3 cm/m2 LV Mass: 205.68 67-162/88-224 g LV Mass Index: 97.94 43-95/49-115 g/m2 LVOT Diam: 2.30 3.0+(-)1.3 cm 2D Systolic Function EF 4C: 44.60 >55% EF 2C: 49.40 >55% EF BiP: 45.00 >55% Mitral Valve MV Pk E: 0.82 MV PK A: 1.02 MV Decel Time: 171.00 E/A: 0.80 E'Lateral: 6.42 E'Medial: 4.68 E/E' Med: 17.60 E/E' Lat: 12.80 PHT: 50.00 MVA PHT: 4.40 Decel Mineral: 4.82 Aortic Valve AoV Pk Teddy: 1.33 AoV Mn Teddy: 0.87 AoV VTI: 0.24 AoV Pk Grad: 7.00 Aov Mn Grad: 3.00 NAM Cont.VTI: 2.55 LVOT LVOT Pk Teddy: 0.73 LVOT Mn Teddy: 0.52 LVOT VTI: 0.15 LVOT Pk Grad: 2.00 LVOT Mn Grad: 1.00 LVOT Diam: 2.30 LVOT Area: 4.15 Diastolic Function MV Pk E: 0.82 MV Pk A: 1.02 E/A: 0.80 E'Medial: 4.68 E/E' Med: 17.60 E' Laterial: 6.42 E/E' Lat: 12.80 Right Ventricle TAPSE (mm): 18.70 TVS' Teddy: 7.18 Tricuspid Valve TR Pk Teddy: 2.35 TR Pk Grad: 22.00 RA Press: 8.00 RVSP: 30.00 Great Vessels Aorta Sinus of Valsalva: 3.28 2.0-3.5 cm Ao Asc: 3.30 2.1-3.4 cm Updated in Other Vendor System with Status of Final Joey Vickers MD electronically signed on 12/02/2021 12:12:09 PM with status of Final
== END ==
LOC: HO.CARD 08:23
PROVIDERS: PCP Internal Medicine; Visit Provider Internal Medicine
DX: I25.10 Atherosclerotic heart disease of native coronary artery without angina pectoris (principal); I25.5 Ischemic cardiomyopathy
CPT/HCPCS: 93306; Q9957

== ENCOUNTER → 2021-12-11 10:52 | Outpatient (BNVA) | payer OTHER, SELFPAY | PROVIDERS: PCP Internal Medicine; Referring Provider Internal Medicine; Visit Provider Internal Medicine | DX: I50.32 Chronic diastolic (congestive) heart failure (principal); I25.10 Atherosclerotic heart disease of native coronary artery without angina pectoris; Z95.810 Presence of automatic (implantable) cardiac defibrillator; Z95.1 Presence of aortocoronary bypass graft | CPT/HCPCS: 99212 ==

== ENCOUNTER → 2021-12-13 11:15 | Outpatient (BNVA) | payer OTHER, SELFPAY | PROVIDERS: PCP Internal Medicine; Visit Provider Nurse Practitioner Gerontology | DX: E11.42 Type 2 diabetes mellitus with diabetic polyneuropathy (principal); E78.5 Hyperlipidemia, unspecified; E66.01 Morbid (severe) obesity due to excess calories; I10 Essential (primary) hypertension; Z79.4 Long term (current) use of insulin; Z68.33 Body mass index [BMI] 33.0-33.9, adult; Z79.84 Long term (current) use of oral hypoglycemic drugs | CPT/HCPCS: 82947; 83036; Q3014 ==

== ENCOUNTER 2022-02-26 11:26 | Outpatient (REF) | payer OTHER, SELFPAY ==
--- NOTE | ~2022-02-26 | US_ITS ---
EXAMINATION: BILATERAL LOWER EXTREMITY DUPLEX CLINICAL INFORMATION: Claudication. TECHNIQUE: Real-time ultrasound and Doppler techniques (integrating B-mode 2-D vascular images, Doppler spectral analysis and color flow Doppler imaging) were utilized to interrogate the lower extremities. COMPARISON: None. FINDINGS: RIGHT LEG: Common femoral artery: 99.8 cm/s, multiphasic waveform Profunda femoris artery: 57.5 cm/s, multiphasic waveform Superficial femoral artery (proximal): 102 cm/s, multiphasic waveform Superficial femoral artery (mid): 77.4 cm/s, multiphasic waveform Superficial femoral artery (distal): 62.1 cm/s, multiphasic waveform Popliteal artery: 84.1 cm/s, multiphasic waveform Posterior tibial artery: 105 cm/s, multiphasic waveform LEFT LEG: Common femoral artery: 91.1 cm/s, multiphasic waveform Profunda femoris artery: 52.6 cm/s, multiphasic waveform Superficial femoral artery (proximal): 81.5 cm/s, multiphasic waveform Superficial femoral artery (mid): 74.5 cm/s, multiphasic waveform Superficial femoral artery (distal): 69.8 cm/s, multiphasic waveform Popliteal artery: 72.7 cm/s, multiphasic waveform Posterior tibial artery: 111 cm/s, multiphasic waveform US/US arterial duplex LE BI IMPRESSION: RIGHT: No evidence of hemodynamically significant arterial disease. LEFT: No evidence of hemodynamically significant arterial disease.
[2022-02-26 11:44] LABS: MANUAL DIFF FLAG NO
[2022-02-26 12:44] LABS: Basophils Absolute Auto 0.1 X10*3/uL (0.0-0.2); Basophils Percent Auto 0.6 % (0-2); Eosinophils Absolute Auto 0.3 X10*3/uL (0.0-0.4); Eosinophils Percent Auto 2.8 % (0-4); Hematocrit 40.1 % (42.0-52.0); Imm Gran Abs Auto 0.05 X10*3/uL (0.00-0.03); Imm Gran Pct Auto 0.5 % (0.0-0.4); Lymphocytes Percent Auto 17.9 % (20-40); Mean Corpuscular HGB Conc 32.4 g/dl (31.0-36.0); Mean Corpuscular Volume 89.3 fL (80.0-98.0); Mean Platelet Volume 10.1 fL (9.4-12.4); Monocytes Percent Auto 9.5 % (2-11); Neutrophils Absolute Auto 7.5 x10*3/uL (2.0-8.3); Neutrophils Percent Auto 68.7 % (45-73); Platelet Count 241 X10*3/uL (160-400); Red Blood Count 4.49 X10*6/uL (4.60-5.80); Red Cell Distribution Width 13.7 % (11.0-16.0); White Blood Count 10.9 X10*3/uL (4.8-10.8)
[2022-02-26 13:13] LABS: Alanine Aminotransferase 17 U/L (0-40); Albumin Level 3.7 g/dL (3.5-5.0); Alkaline Phosphatase 55 U/L (39-117); Anion Gap 12 (12-20); Aspartate Amino Transferase 19 U/L (5-37); B Type Natriuretic Peptide 85 pg/mL (<100); Bilirubin Total 0.3 mg/dL (0.0-1.0); Blood Urea Nitrogen 35 mg/dL (9-16); Calcium 8.6 mg/dL (8.4-10.2); Carbon Dioxide 26 mmol/L (22-29); Chloride 105 mmol/L (96-108); Cholesterol 128 mg/dL; Estimated Glomerular Filt Rate 41; Glucose Fasting 220 mg/dL (60-99); HDL Cholesterol 38 mg/dL; LDL Cholesterol Calculated 71 mg/dl; Potassium 5.7 mmol/L (3.3-5.1); Sodium 137 mmol/L (135-145); Triglycerides 99 mg/dL
[2022-02-26 13:34] LABS: Thyroid Stimulating Hormone 2.76 uIU/mL (0.32-4.0)
[2022-02-26 13:44] LABS: Creatinine Urine 136.08 mg/dL
[2022-02-26 14:00] LABS: Microalbum/Creatinine Ratio Ur 1018.5 ug/mg cr
[2022-03-02 16:06] LABS: Vitamin D 25-OH, D2 <4 ng/mL; Vitamin D 25-OH, D3 26 ng/mL; Vitamin D 25-OH, Total 26 ng/mL (30-100)
== END 2022-02-26 11:27 | disposition home or self-care (01) ==
LOC: HO.US 11:26
PROVIDERS: PCP Internal Medicine; Visit Provider Internal Medicine
DX: I73.9 Peripheral vascular disease, unspecified (principal); I50.32 Chronic diastolic (congestive) heart failure; E11.9 Type 2 diabetes mellitus without complications; E78.5 Hyperlipidemia, unspecified; G47.33 Obstructive sleep apnea (adult) (pediatric); D64.9 Anemia, unspecified; E03.9 Hypothyroidism, unspecified; E55.9 Vitamin D deficiency, unspecified
CPT/HCPCS: 36415; 80053; 80061; 82043; 82306; 83880; 84443; 85025; 93925

== ENCOUNTER → 2022-02-28 11:18 | Outpatient (REF) | payer OTHER, SELFPAY ==
--- NOTE | 2022-02-28 06:48 | ECG_ITS ---
Test Reason : E87.5 HYPERKALEMIA Blood Pressure : / mmHG Vent. Rate : 080 BPM Atrial Rate : 080 BPM P-R Int : 170 ms QRS Dur : 082 ms QT Int : 382 ms P-R-T Axes : -11 049 142 degrees QTc Int : 440 ms Normal sinus rhythm Nonspecific T wave abnormality Abnormal ECG No previous ECGs available Referred By: Sophie Fulton Electronically Signed By:DEEDEE STANFORD
[2022-02-28 11:44] LABS: MANUAL DIFF FLAG NO
[2022-02-28 12:26] LABS: Basophils Absolute Auto 0.1 X10*3/uL (0.0-0.2); Basophils Percent Auto 0.5 % (0-2); Eosinophils Absolute Auto 0.4 X10*3/uL (0.0-0.4); Eosinophils Percent Auto 3.3 % (0-4); Hematocrit 40.5 % (42.0-52.0); Hemoglobin 13.1 g/dl (14.0-18.0); Imm Gran Abs Auto 0.05 X10*3/uL (0.00-0.03); Imm Gran Pct Auto 0.5 % (0.0-0.4); Lymphocytes Percent Auto 18.8 % (20-40); Mean Corpuscular HGB Conc 32.3 g/dl (31.0-36.0); Mean Corpuscular Hemoglobin 28.7 pg (27.0-33.0); Mean Corpuscular Volume 88.6 fL (80.0-98.0); Mean Platelet Volume 9.8 fL (9.4-12.4); Monocytes Absolute Auto 0.9 X10*3/uL (0.1-1.2); Monocytes Percent Auto 8.7 % (2-11); Neutrophils Absolute Auto 7.4 x10*3/uL (2.0-8.3); Neutrophils Percent Auto 68.2 % (45-73); Platelet Count 228 X10*3/uL (160-400); Red Blood Count 4.57 X10*6/uL (4.60-5.80); Red Cell Distribution Width 13.8 % (11.0-16.0); White Blood Count 10.8 X10*3/uL (4.8-10.8)
[2022-02-28 13:21] LABS: Triglycerides 130 mg/dL
[2022-02-28 13:23] LABS: Thyroid Stimulating Hormone 2.54 uIU/mL (0.32-4.0)
[2022-02-28 13:25] LABS: Alanine Aminotransferase 19 U/L (0-40); Albumin Level 3.7 g/dL (3.5-5.0); Alkaline Phosphatase 57 U/L (39-117); Anion Gap 11 (12-20); Aspartate Amino Transferase 18 U/L (5-37); Bilirubin Total 0.4 mg/dL (0.0-1.0); Blood Urea Nitrogen 26 mg/dL (9-16); Carbon Dioxide 27 mmol/L (22-29); Chloride 106 mmol/L (96-108); Cholesterol 132 mg/dL; Estimated Glomerular Filt Rate 46; Glucose Fasting 176 mg/dL (60-99); HDL Cholesterol 35 mg/dL; LDL Cholesterol Calculated 71 mg/dl; Potassium 5.3 mmol/L (3.3-5.1); Sodium 139 mmol/L (135-145); Total Protein 7.2 g/dL (6.5-8.0)
== END ==
LOC: HO.CARD 11:18
PROVIDERS: PCP Internal Medicine; Visit Provider Internal Medicine
DX: E78.5 Hyperlipidemia, unspecified (principal); E87.5 Hyperkalemia; E03.9 Hypothyroidism, unspecified; D64.9 Anemia, unspecified
CPT/HCPCS: 36415; 80053; 80061; 84443; 85025; 93005

== ENCOUNTER 2022-03-02 13:40 | Outpatient (REF) | payer OTHER, SELFPAY ==
[2022-03-02 14:33] LABS: COVID-19 Test Negative (Negative); IDNOW Serial# 08D9AD1C
== END 2022-03-02 13:41 | disposition home or self-care (01) ==
LOC: HO.LAB 13:40
PROVIDERS: Visit Provider Internal Medicine
DX: Z20.822 Contact with and (suspected) exposure to COVID-19 (principal)
CPT/HCPCS: 87635; C9803

== ENCOUNTER → 2022-04-20 13:48 | Outpatient (BNVA) | payer OTHER, SELFPAY | PROVIDERS: PCP Internal Medicine; Visit Provider Hospitalist | DX: J45.40 Moderate persistent asthma, uncomplicated (principal); R06.00 Dyspnea, unspecified; G47.33 Obstructive sleep apnea (adult) (pediatric); Z79.899 Other long term (current) drug therapy | CPT/HCPCS: 99212 ==

== ENCOUNTER → 2022-05-15 14:44 | Outpatient (REF) | payer OTHER, SELFPAY | LOC: HO.SL 14:44 | PROVIDERS: PCP Internal Medicine; Visit Provider Hospitalist | DX: G47.33 Obstructive sleep apnea (adult) (pediatric) (principal) | CPT/HCPCS: 95806 ==

== ENCOUNTER → 2022-06-21 12:49 | Outpatient (BNVA) | payer OTHER, SELFPAY | PROVIDERS: PCP Internal Medicine; Referring Provider Internal Medicine; Visit Provider Internal Medicine | DX: I11.0 Hypertensive heart disease with heart failure (principal); I50.32 Chronic diastolic (congestive) heart failure; I25.10 Atherosclerotic heart disease of native coronary artery without angina pectoris; Z95.1 Presence of aortocoronary bypass graft; Z95.810 Presence of automatic (implantable) cardiac defibrillator | CPT/HCPCS: 99212 ==

== ENCOUNTER → 2022-10-15 14:01 | Outpatient (BNVA) | payer OTHER, SELFPAY | PROVIDERS: PCP Internal Medicine; Visit Provider Hospitalist | DX: G47.33 Obstructive sleep apnea (adult) (pediatric) (principal); R06.00 Dyspnea, unspecified; J45.40 Moderate persistent asthma, uncomplicated | CPT/HCPCS: 99212 ==

== ENCOUNTER 2022-10-23 16:44 | Emergency (ER) | payer OTHER, SELFPAY ==
--- NOTE | ~2022-10-23 | CT_ITS ---
EXAMINATION: CT CHEST WITHOUT CONTRAST CLINICAL INFORMATION: Right lateral rib pain 3 through 5. COMPARISON: Chest radiographs dated 06/09/2020 TECHNIQUE: Multidetector volumetric CT imaging of the chest was done. Axial MIP volume rendering provided. Sagittal and coronal reformatted images were obtained. This CT examination was performed using dose optimization techniques as appropriate, variously including the following: *Automated exposure control *Adjustment of mA and/or kV according to patient size (this includes techniques or standardized protocols for targeted exams where dose is matched to indication/reason for exam; i.e. extremities or head) *Use of iterative reconstruction technique DLP: 343 mGy-cm FINDINGS: WEDGER: Left pectoral AICD with lead terminating at the right apex. Multiple fracture or sternal wires. LUNGS: A prominent calcified granuloma is present within the lateral aspect of the lingula. No consolidation. Central airways are clear. Respiratory motion is noted. No suspicious noncalcified pulmonary nodules are identified. Minimal linear atelectasis or pleural-parenchymal scarring in the anterior aspect of the right upper lobe MEDIASTINUM: Left pectoral AICD lead tip terminates at the right ventricular apex. Mild cardiomegaly. Calcific atherosclerosis in the coronary arteries status post CABG. No mediastinal adenopathy. Thyroid gland is unremarkable. PLEURA: There is no pleural effusion. No pleural mass or thickening. AXILLA: No lymphadenopathy. UPPER ABDOMEN: Unremarkable. OSSEOUS STRUCTURES: Mild degenerative disc disease and moderate facet arthropathy in the thoracic spine. There is no appreciable osseous union at the sternum and manubrium status post sternotomy. No rib fractures are identified. CT/CT chest wo IV con IMPRESSION: 1. No acute pulmonary findings. No appreciable osseous union at the sternum and manubrium status post sternotomy. Multiple fractured sternal wires. No rib fractures are identified. 2. Mild cardiomegaly. Fleischner guidelines were followed.
--- NOTE | ~2022-10-23 | XR_ITS ---
EXAMINATION: XR FOOT, RIGHT CLINICAL INFORMATION: Left great toe pain. COMPARISON: None available. TECHNIQUE: AP, lateral, and oblique views of the right foot. FINDINGS: No appreciable fracture or malalignment. Bone mineralization appears normal. Joints appear relatively well-preserved the exception of minimal osteoarthritis at the great toe MTP joint. Midfoot joints are unremarkable. Small and these x-rays of the calcaneus. Calcific atherosclerosis in the forefoot. XR/XR foot RT min 3V IMPRESSION: No acute osseous abnormalities in the right foot. 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
[2022-10-23 17:27] VITALS: BP 135/94; PULSE 70; RESP 19; TEMP 36.6; O2SAT 99; BMI 31.3
--- NOTE | 2022-10-23 17:28 | ED_ITS ---
HPI - General Adult General Chief complaint: General Medical <SUSAN Kincaid - Last Filed: 10/23/22 17:30> Stated complaint: toe discoloration post shower fall <SUSAN Kincaid - Last Filed: 10/23/22 17:30> Time Seen by Provider: 10/23/22 18:16 <SUSAN Kincaid - Last Filed: 10/23/22 17:30> Source: patient <Tania Branch NP - Last Filed: 10/24/22 01:24> Mode of arrival: ambulatory <Tania Branch NP - Last Filed: 10/24/22 01:24> Limitations: language barrier <Tania Branch NP - Last Filed: 10/24/22 01:24> History of Present Illness HPI narrative: 72-year-old male presents with toe in rib pain after a fall. Patient states that he slipped on a bathroom rug, slammed his toe into the tub and hit the side of his ribs yesterday. He did not hit his head or lose consciousness. He is not reporting any shortness of breath, but states to have toe pain with bruising and rib pain. He is a diabetic, and has multiple cor morbidities. <Tania Branch NP - Last Filed: 10/24/22 01:24> Onset (ago): day(s) (1) <Tania Branch NP - Last Filed: 10/24/22 01:24> Location: chest (Ribs) and right (Great toe) <Tania Branch NP - Last Filed: 10/24/22 01:24> Severity: moderate <Tania Branch NP - Last Filed: 10/24/22 01:24> Severity scale (1-10): 6 <ADIEL Balatzar Last Filed: 10/24/22 01:24> Quality: aching <ADIEL Baltazar Last Filed: 10/24/22 01:24> Pain Consistency: constant <Tania Branch NP - Last Filed: 10/24/22 01:24> Relieving factors: rest <Tania Branch NP - Last Filed: 10/24/22 01:24> Exacerbating factors: movement <Tania Branch NP - Last Filed: 10/24/22 01:24> Associated symptoms: denies other symptoms <Tania Branch NP - Last Filed: 10/24/22 01:24> Treatments prior to arrival: none <Tania Branch NP - Last Filed: 10/24/22 01:24> Related Data Home medications: Home Medications Medication Instructions Recorded Confirmed levothyroxine 50 mcg tablet 50 mcg PO DAILY 10/15/22 Previous Rx's Medication Instructions Recorded blood-glucose meter (FreeStyle #1 ea 10/05/20 Lite Meter kit) blood sugar diagnostic (FreeStyle #100 ea 01/04/22 Lite Strips) flash glucose sensor (FreeStyle #2 ea 01/04/22 Manjit 14 Day Sensor kit) lancets 28 gauge (FreeStyle 1 gauge topical TID #100 ea 01/04/22 Lancets) rosuvastatin 40 mg tablet 40 mg PO DAILY #90 tabs 02/27/22 losartan 25 mg tablet 25 mg PO DAILY 90 days #90 tabs 05/15/22 cholecalciferol (vitamin D3) 50 50 mcg PO DAILY 90 days #90 caps 06/18/22 mcg (2,000 unit) capsule gabapentin 100 mg capsule 100 mg PO BEDTIME 30 days #30 caps 06/18/22 famotidine 20 mg tablet 20 mg PO BEDTIME for heartburn 90 07/24/22 days #90 tabs trazodone 50 mg tablet 50 mg PO BEDTIME 90 days #90 tabs 08/19/22 Ventolin HFA 90 mcg/actuation 2 puff inhalation Q6H PRN 09/24/22 aerosol inhaler (albuterol sulfate) shortness of breath or wheezing 30 days #8 grams amlodipine 5 mg tablet 5 mg PO DAILY #90 tabs 09/24/22 aspirin 81 mg tablet,delayed 81 mg PO DAILY #90 tabs 09/24/22 release (Enteric Coated Aspirin) budesonide-formoterol HFA 160 2 puff inhalation BID 30 days 09/24/22 mcg-4.5 mcg/actuation aerosol #10.2 grams inhaler (Symbicort) dulaglutide 4.5 mg/0.5 mL 4.5 mg (0.5 mL) subcut QWEEK 90 09/24/22 subcutaneous pen injector days #6.5 mL (Trulicity) folic acid 1 mg tablet 1 mg PO DAILY 90 days #90 tabs 09/24/22 furosemide 40 mg tablet 40 mg PO DAILY 90 days #90 tabs 09/24/22 galantamine 8 mg 24 hr 8 mg PO QAM #90 caps 09/24/22 capsule,extended release insulin aspart U-100 100 unit/mL See Rx Instructions subcut QID 30 09/24/22 (3 mL) subcutaneous pen (Novolog days #90 mL FlexPen U-100 Insulin aspart) insulin glargine U-300 conc 300 70 unit (0.2333 mL) subcut DAILY 09/24/22 unit/mL (3 mL) subcutaneous pen 90 days #20.997 mL (Toujeo Max U-300 SoloStar) meclizine 12.5 mg tablet 12.5 mg PO Q12H PRN for dizziness 09/24/22 #30 tabs metoprolol succinate 100 mg 100 mg PO DAILY #90 tabs 09/24/22 tablet,extended release 24 hr pen needle, diabetic 32 gauge x #50 ea 09/24/22 pramipexole 0.5 mg tablet 0.5 mg PO DAILY #90 tabs 09/24/22 metformin 500 mg tablet 500 mg PO BID 90 days #180 tabs 10/15/22 doxycycline monohydrate 100 mg 100 mg PO BID 7 days #14 caps 10/23/22 capsule <SUSAN Kincaid - Last Filed: 10/23/22 17:30> Allergies/adverse reactions: Allergies Allergy/AdvReac Type Severity Reaction Status Date / Time Penicillins Allergy Intermediate ITCHING Verified 10/23/22 17:26 <SUSAN Kincaid - Last Filed: 10/23/22 17:30> Review of Systems Review of Systems: Constitutional: No Fever, No Chills Cardiovascular: Positive right Chest wall Pain, No SOB Respiratory: No Cough, No Dyspnea Gastrointestinal: No Nausea, No Vomiting, No Diarrhea, No abdominal Pain Genitourinary: No Dysuria, No Hematuria Musculoskeletal: positive left toe pain, No Myalgias, No Joint Swelling Skin: No Skin lacerations, No rash Neuro: No Weakness, No Numbness, No Paresthesias, No Dizziness, No Headache <Tania Branch NP - Last Filed: 10/24/22 01:24> Yes all other systems are reviewed and are negative <Tania Branch NP - Last Filed: 10/24/22 01:24> [facility] Past Medical History Attestation statement: The following information was validated with the patient. <Tania Branch NP - Last Filed: 10/24/22 01:24> Source: old records reviewed <Tania Branch NP - Last Filed: 10/24/22 01:24> Medical History: Medical History Atherosclerotic cardiovascular disease Bibasilar crackles CAD (coronary artery disease) Chronic systolic (congestive) heart failure Delusion of persecution Dyspnea Essential hypertension GERD (gastroesophageal reflux disease) HTN (hypertension) Hyperlipidemia LDL goal <70 Hypothyroidism Hypothyroidism ICD (implantable cardioverter-defibrillator) in place Insomnia Ischemic cardiomyopathy Obesity due to excess calories ROE (obstructive sleep apnea) ROE (obstructive sleep apnea) ROE on CPAP 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 Mother CVD (cardiovascular disease) <SUSAN Kincaid - Last Filed: 10/23/22 17:30> Social History Social History: Social History Household Members: Spouse Housing: Apartment Alcohol intake: former Patient Tobacco Use Status: Never used Tobacco e-Cigarette/Vaping Use: Never Used Second Hand Smoke Exposure: No Advance Directives: No Advance Directives Information Provided: Yes service: No Current occupational status: retired Cognitive needs: Yes Hearing needs: No Vision needs: Yes <SUSAN Kincaid - Last Filed: 10/23/22 17:30> Physical Exam ED Vital Signs: Vital Signs - 24 hr 10/23/22 17:27 Temperature 98 F Pulse Rate 70 Respiratory Rate 19 Blood Pressure 135/94 H Pulse Oximetry 99 Oxygen Delivery Method Room Air BMI result Body Mass Index 31.3 <SUSAN Kincaid - Last Filed: 10/23/22 17:30> Vital Signs - 24 hr 10/23/22 17:27 Temperature 98 F Pulse Rate 70 Respiratory Rate 19 Blood Pressure 135/94 H Pulse Oximetry 99 Oxygen Delivery Method Room Air BMI result Body Mass Index 31.3 <Tania Branch NP - Last Filed: 10/24/22 01:24> Appearance: Alert. Oriented X3. No acute distress. Eyes: Pupils equal, round and reactive to light. ENT: Pharynx normal. Neck: Normal inspection. Neck supple. CVS: Normal heart rate and rhythm. Pulses normal. Respiratory: No respiratory distress. Breath sounds normal. Skin: Skin warm and dry. Normal skin color. Normal skin turgor. Extremities: No lower extremity edema. Bruising noted to the left great toe. Limping gait. Neuro: No motor deficit. No sensory deficit. Cranial nerves 2-12 intact. <Tania Branch NP - Last Filed: 10/24/22 01:24> Course Course Course Narrative: This is an RME: Additional HPI, ROS, PE not included below will be deferred to primary provider. And a history of hypertension, diabetes, defibrillator in place, cardiomyopathy, hyperlipidemia presenting to the emergency department evaluation right-sided toe and right-sided lateral rib pain status post trip and fall yesterday. Patient tells me his right great toe is swollen, and. He says it to the touch. Also reporting rib pain. He tells me l anded on his right side. No head strike loss of consciousness. Not on blood thinners. Preceding symptoms to fall he tells me he is strictly tripped on a rug Physical exam with pain to palpation of the lateral right chest overlying ribs 4 through 5. No signs of flow chest. Present breath sounds. Right great toe with ecchymosis, edema and pain to palpation. 2+ dorsalis pedis, anterior to pulses and posterior tibialis pulses equal bilateral. 1+ pitting edema to bilateral lower extremities. At this time chest CT to rule out rib fractures. Will obtain x-ray of foot. <SUSAN Kincaid - Last Filed: 10/23/22 17:30> This is an RME: Additional HPI, ROS, PE not included below will be deferred to primary provider. And a history of hypertension, diabetes, defibrillator in place, cardiomyopathy, hyperlipidemia presenting to the emergency department evaluation right-sided toe and right-sided lateral rib pain status post trip and fall yesterday. Patient tells me his right great toe is swollen, and. He says it to the touch. Also reporting rib pain. He tells me landed on his right side. No head strike loss of consciousness. Not on blood thinners. Preceding symptoms to fall he tells me he is strictly tripped on a rug Physical exam with pain to palpation of the lateral right chest overlying ribs 4 through 5. No signs of flow chest. Present breath sounds. Right great toe with ecchymosis, edema and pain to palpation. 2+ dorsalis pedis, anterior to pulses and posterior tibialis pulses equal bilateral. 1+ pitting edema to bilateral lower extremities. At this time chest CT to rule out rib fractures. Will obtain x-ray of foot. 72-year-old male presents for evaluation for injury sustained from a trip and fall. Patient did not hit his head or land on the ground. He was going into his bathroom, tripped over the rug, slammed his toe into the tub or wall, and hit his right rib cage. Patient does have a history of cardiac surgery, CHF with preserved ejection fraction, ROE, hypertension, insulin-dependent diabetes. X-ray and CT scan results are pending. 19:30 CT scan is negative for acute findings, does show multiple fractured sternal wires which are chronic, and mild cardiomegaly consistent with CHF. Toe x-ray is negative. 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 Considering that this patient has significant cor morbidities, some bruising, and is an insulin-dependent diabetic will treat with doxycycline. Patient does understand that if symptoms worsen, bruising increases, that he has a higher risk for osteomyelitis and that he should present to the emergency department if he develops fevers, chills, or pain out of proportion to the injury. machinist helper utilized for all correspondence. The patient utilized in discharge instructions. Patient verbalized understanding of discharge instructions. Verbalized understandings of signs and symptoms indicating need for emergent intervention. <Tania Branch NP - Last Filed: 10/24/22 01:24> Medications Administered Discontinued Medications Generic Name Dose Route Start Last Admin Trade Name Freq PRN Reason Stop Dose Admin Doxycycline Monohydrate 100 mg 10/23/22 19:18 10/23/22 19:46 Doxycycline Monohydrate 100 Mg Capsule PO 10/23/22 19:19 100 mg ONCE ONE Administration <SUSAN Kincaid - Last Filed: 10/23/22 17:30> Medications Administered Discontinued Medications Generic Name Dose Route Start Last Admin Trade Name Freq PRN Reason Stop Dose Admin Doxycycline Monohydrate 100 mg 10/23/22 19:18 10/23/22 19:46 Doxycycline Monohydrate 100 Mg Capsule PO 10/23/22 19:19 100 mg ONCE ONE Administration <Tania Branch NP - Last Filed: 10/24/22 01:24> Medical Decision Making Differential Diagnosis Differential Diagnoses: The differential diagnosis associated with the presentation includes <Tania Branch NP - Last Filed: 10/24/22 01:24> Fracture, Osteo <Tania Branch NP - Last Filed: 10/24/22 01:24> Admission/Observation Consideration of admission/observation: Escalation of care including admission/observation considered <Tania gonzales NP - Last Filed: 10/24/22 01:24> If x-rays indicate fracture of ribs, or osteo of the toe, will consider admission. <Tania Branch NP - Last Filed: 10/24/22 01:24> Independent Interpretation I performed an independent interpretation of an: Plain X-Ray and CT Scan <Tania Branch NP - Last Filed: 10/24/22 01:24> Radiology Impression Discussion of test interpretation with radiology: I have reviewed the radiologist's reading. <Tania Branch NP - Last Filed: 10/24/22 01:24> Radiologist Impression: EXAMINATION: XR FOOT, RIGHT CLINICAL INFORMATION: Left great toe pain.? COMPARISON: None available.? TECHNIQUE: AP, lateral, and oblique views of the right foot. FINDINGS: No appreciable fracture or malalignment. Bone mineralization appears normal. Joints appear relatively well-preserved the exception of minimal osteoarthritis at the great toe MTP joint. Midfoot joints are unremarkable. Small and these x-rays of the calcaneus. Calcific atherosclerosis in the forefoot. XR/XR foot RT min 3V IMPRESSION: No acute osseous abnormalities in the right foot. 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 EXAMINATION: CT CHEST WITHOUT CONTRAST CLINICAL INFORMATION: Right lateral rib pain 3 through 5.? COMPARISON: Chest radiographs dated 06/09/2020? ? TECHNIQUE: Multidetector volumetric CT imaging of the chest was done. Axial MIP volume rendering provided. Sagittal and coronal reformatted images were obtained.? This CT examination was performed using dose optimization techniques as appropriate, variously including the following: *Automated exposure control *Adjustment of mA and/or kV according to patient size (this includes techniques or standardized protocols for targeted exams where dose is matched to indication/reason for exam; i.e. extremities or head) *Use of iterative reconstruction technique DLP: 343 mGy-cm FINDINGS: FABRICATION TECHNICIAN: Left pectoral AICD with lead terminating at the right apex. Multiple fracture or sternal wires. LUNGS: A prominent calcified granuloma is present within the lateral aspect of the lingula. No consolidation. Central airways are clear. Respiratory motion is noted. No suspicious noncalcified pulmonary nodules are identified. Minimal linear atelectasis or pleural-parenchymal scarring in the anterior aspect of the right upper lobe? MEDIASTINUM: Left pectoral AICD lead tip terminates at the right ventricular apex. Mild cardiomegaly. Calcific atherosclerosis in the coronary arteries status post CABG. No mediastinal adenopathy. Thyroid gland is unremarkable. PLEURA: There is no pleural effusion. No pleural mass or thickening.? AXILLA: No lymphadenopathy.? UPPER ABDOMEN: Unremarkable.? OSSEOUS STRUCTURES: Mild degenerative disc disease and moderate facet arthropathy in the thoracic spine. There is no appreciable osseous union at the sternum and manubrium status post sternotomy. No rib fractures are identified. CT/CT chest wo IV con IMPRESSION: 1.? No acute pulmonary findings. No appreciable osseous union at the sternum and manubrium status post sternotomy. Multiple fractured sternal wires. No rib fractures are identified. 2.? Mild cardiomegaly. ? Fleischner guidelines were followed. ? <Tania Branch NP - Last Filed: 10/24/22 01:24> External Record Review External record reviewed: Inpatient record, Outpatient record, Prior outpatient labs and Prior outpatient radiology <Tania Branch NP - Last Filed: 10/24/22 01:24> Prescription Management I considered prescription management with: Antibiotic <Tania Branch NP - Last Filed: 10/24/22 01:24> Chronic Conditions Patient?s care impacted by: Diabetes and Hypertension <Tania Branch NP - Last Filed: 10/24/22 01:24> Discharge Plan Discharge Clinical Impression: Contusion of right great toe without damage to nail <SUSAN Kincaid - Last Filed: 10/23/22 17:30> Patient Disposition: Home, Self-Care <SUSAN Kicnaid - Last Filed: 10/23/22 17:30> Instructions: Foot Contusion (ED) <SUSAN Kincaid - Last Filed: 10/23/22 17:30> Additional Instructions: Lo evaluaron por elvia lesi?n en el dedo micah del pie derecho. Tienes un moret?n en la punta del dedo del pie. [place] doxiciclina 100 mg dos veces al d?a tawny 7 d?as. mary anne medicamento es para prevenir infecciones ya que usted es diab?jose guadalupe. Si mccord dedo del pie empeora, acuda al departamento de emergencias de inmediato porque tiene un alto riesgo de infecci?n. La TC de t?rax es negativa para un hallazgo antonio. [place] Tylenol 650 mg cada 6 horas y Motrin 600 mg cada 6 horas seg?n sea necesario para controlar el dolor y la fiebre. Considere diane estos medicamentos con 3 horas de diferencia para controlar el dolor y la fiebre cada 3 horas. Anote a qu? hora augustine estos medicamentos para evitar elvia sobredosis accidental. Motrin es el mismo medicamento que Advil e ibuprofeno. Tylenol es el mismo medicamento que el paracetamol. Michelle por elegir mary anne departamento de emergencias para mccord evaluaci?n. Por favor, hui un seguimiento con el m?dico de atenci?n primaria seg?n sea necesario. Regrese al departamento de emergencias por cualquier s?ntoma nuevo, preocupante o que empeore. You were evaluated for injury to your right great toe. You do have a bruise to the tip of the toe. Please take doxycycline 100 mg twice a day for 7 days. this medication is to prevent infection as you are a diabetic. If your toe gets worse, present to the emergency department immediately because you have high risk for infection. Chest CT is negative for acute finding. Alternate Tylenol 650 mg every 6 hours and Motrin 600 mg every 6 hours as needed for pain and fever management. Consider taking these medications 3 hours apart so you have pain and fever management every 3 hours. Write down what time you take these medications to prevent accidental overdose. Motrin is the same medication as Advil and ibuprofen. Tylenol is the same medication as aceta minophen. Thank you for choosing this emergency department for evaluation. Please follow-up with primary care physician as needed. Return to the emergency department for any new, concerning, or worsening symptoms. <SUSAN Kincaid - Last Filed: 10/23/22 17:30> Prescriptions: New doxycycline monohydrate 100 mg capsule 100 mg PO BID 7 Days Qty: 14 0RF No Action (DME) blood-glucose meter [FreeStyle Lite Meter] Kit See Rx Instructions .ROUTE .MEDSUPPLY Qty: 1 0RF Rx Instructions: As directed (DME) FreeStyle Lite Strips Strip See Rx Instructions .Route Qty: 100 11RF Rx Instructions: As directed 4 times a day (DME) FreeStyle Manjit 14 Day Sensor Kit See Rx Instructions .Route Qty: 2 11RF Rx Instructions: As directed every 14 days lancets [FreeStyle Lancets] 28 gauge misc 1 gauge topical TID Qty: 100 11RF losartan 25 mg tablet 25 mg PO DAILY 90 Days Qty: 90 0RF famotidine 20 mg tablet 20 mg PO BEDTIME 90 Days Qty: 90 1RF trazodone 50 mg tablet 50 mg PO BEDTIME 90 Days Qty: 90 0RF amlodipine 5 mg tablet 5 mg PO DAILY Qty: 90 0RF aspirin [Enteric Coated Aspirin] 81 mg tablet,delayed release (DR/EC) 81 mg PO DAILY Qty: 90 0RF budesonide-formoterol [Symbicort] 160-4.5 mcg/actuation HFA aerosol inhaler 2 puff inhalation BID 30 Days Qty: 10.2 0RF Trulicity 4.5 mg/0.5 mL pen injector 4.5 mg subcut QWEEK 90 Days Qty: 6.5 3RF folic acid 1 mg tablet 1 mg PO DAILY 90 Days Qty: 90 0RF furosemide 40 mg tablet 40 mg PO DAILY 90 Days Qty: 90 1RF galantamine 8 mg capsule,ext rel. pellets 24 hr 8 mg PO QAM Qty: 90 1RF insulin aspart U-100 [Novolog FlexPen U-100 Insulin] 100 unit/mL (3 mL) insulin pen See Rx Instructions subcut QID 30 Days Qty: 90 4RF Rx Instructions: 18 units prior to meals, 10 units for smaller meals and 5 units for snacks 4x per day. Toujeo Max U-300 SoloStar 300 unit/mL (3 mL) insulin pen 70 unit subcut DAILY 90 Days Qty: 20.997 3RF meclizine 12.5 mg tablet 12.5 mg PO Q12H PRN (Reason: for dizziness) Qty: 30 0RF metoprolol succinate 100 mg tablet extended release 24 hr 100 mg PO DAILY Qty: 90 0RF (DME) pen needle, diabetic 32 gauge x 5/32 needle See Rx Instructions subcut .MEDSUPPLY Qty: 50 0RF Rx Instructions: As directed pramipexole 0.5 mg tablet 0.5 mg PO DAILY Qty: 90 0RF albuterol sulfate [Ventolin HFA] 90 mcg/actuation HFA aerosol inhaler 2 puff inhalation Q6H PRN (Reason: shortness of breath or wheezing) 30 Days Qty: 8 2RF metformin 500 mg tablet 500 mg PO BID 90 Days Qty: 180 1RF rosuvastatin 40 mg tablet 40 mg PO DAILY Qty: 90 1RF cholecalciferol (vitamin D3) 50 mcg (2,000 unit) capsule 50 mcg PO DAILY 90 Days Qty: 90 1RF gabapentin 100 mg capsule 100 mg PO BEDTIME 30 Days Qty: 30 1RF levothyroxine 50 mcg tablet 50 mcg PO DAILY <SUSAN Kincaid - Last Filed: 10/23/22 17:30> Interventions: ED Discharge Assessment Last Done: 10/23/22 19:53 <SUSAN Kincaid - Last Filed: 10/23/22 17:30> Discharge Date/Time: 10/23/22 19:56 <SUSAN Kincaid - Last Filed: 10/23/22 17:30>
[2022-10-23] MEDS: Doxycycline Monohydrate 100 MG CAPSULE PO (19:46)
== END 2022-10-23 19:56 | disposition home or self-care (01) ==
PROVIDERS: Emergency Provider Internal Medicine; PCP Internal Medicine
DX: S90.111A Contusion of right great toe without damage to nail, initial encounter (principal); M54.6 Pain in thoracic spine; Y29.XXXA Contact with blunt object, undetermined intent, initial encounter; Y93.9 Activity, unspecified; Y92.009 Unspecified place in unspecified non-institutional (private) residence as the place of occurrence of the external cause; Y99.9 Unspecified external cause status; Z79.899 Other long term (current) drug therapy
CPT/HCPCS: 71250; 73630; 99282; 99284

== ENCOUNTER 2022-11-13 10:39 | Outpatient (REF) | payer OTHER, SELFPAY ==
[2022-11-13 11:01] LABS: MANUAL DIFF FLAG NO
[2022-11-13 11:21] LABS: Basophils Absolute Auto 0.1 X10*3/uL (0.0-0.2); Basophils Percent Auto 0.6 % (0-2); Eosinophils Absolute Auto 0.3 X10*3/uL (0.0-0.4); Eosinophils Percent Auto 2.7 % (0-4); Hematocrit 41.2 % (42.0-52.0); Hemoglobin 13.4 g/dl (14.0-18.0); Imm Gran Abs Auto 0.03 X10*3/uL (0.00-0.03); Imm Gran Pct Auto 0.3 % (0.0-0.4); Lymphocytes Absolute Auto 1.7 X10*3/uL (1.2-4.9); Mean Corpuscular HGB Conc 32.5 g/dl (31.0-36.0); Mean Corpuscular Hemoglobin 28.8 pg (27.0-33.0); Mean Corpuscular Volume 88.4 fL (80.0-98.0); Mean Platelet Volume 9.8 fL (9.4-12.4); Monocytes Absolute Auto 0.9 X10*3/uL (0.1-1.2); Monocytes Percent Auto 8.4 % (2-11); Neutrophils Absolute Auto 7.7 x10*3/uL (2.0-8.3); Platelet Count 243 X10*3/uL (160-400); Red Blood Count 4.66 X10*6/uL (4.60-5.80); Red Cell Distribution Width 14.2 % (11.0-16.0); White Blood Count 10.7 X10*3/uL (4.8-10.8)
[2022-11-13 12:12] LABS: Appearance Urine Clear; Color Urine Yellow; Glucose Urine UA Negative (Negative); Leukocyte Esterase Urine Negative (Negative); Nitrite Urine Negative (Negative); PH 5.5 (5.0-9.0); Specific Gravity - Urine 1.015 (1.005-1.025); UMIC TRIGGER UA YES; Urine Blood Trace (Negative); Urine Ketones Negative (Negative); Urine Protein 300 (3+) mg/dL (Neg-Trace)
[2022-11-13 12:14] LABS: Bacteria Urine None Seen (None Seen); Hyaline Casts Urine 0-2 /LPF (0-2); RBC Urine 0-2 /HPF (0-2); Squamous Epithelial Cell Urine 0-2 /HPF (0-2); WBC Urine 0-5 /HPF (0-5)
[2022-11-13 12:17] LABS: Alanine Aminotransferase 17 U/L (0-40); Albumin Level 3.5 g/dL (3.5-5.0); Alkaline Phosphatase 59 U/L (39-117); Anion Gap 13 (12-20); Aspartate Amino Transferase 20 U/L (5-37); Bilirubin Total 0.5 mg/dL (0.0-1.0); Blood Urea Nitrogen 25 mg/dL (9-16); Calcium 9.5 mg/dL (8.4-10.2); Carbon Dioxide 28 mmol/L (22-29); Chloride 106 mmol/L (96-108); Cholesterol 137 mg/dL; Estimated Glomerular Filt Rate 50; Glucose Random 93 mg/dL (60-115); HDL Cholesterol 39 mg/dL; Iron 58 mcg/dL (45-160); LDL Cholesterol Calculated 79 mg/dl; Percent Iron Saturation 22 % (15-50); Potassium 5.6 mmol/L (3.3-5.1); Sodium 141 mmol/L (135-145); Total Iron Binding Capacity 259 mcg/dL (228-428); Total Protein 6.6 g/dL (6.5-8.0); Triglycerides 95 mg/dL; Unsaturated Iron Binding 201 ug/dL
[2022-11-13 12:35] LABS: Vitamin D 25-OH Total 40.6 ng/mL (>30)
[2022-11-13 13:59] LABS: Creatinine Urine 91.79 mg/dL; Microalbum/Creatinine Ratio Ur 1527.3 ug/mg cr
[2022-11-13 14:17] LABS: Protein/Creatinine Ratio, Ur 2.56 (<0.2); Total Protein Urine Random 235 mg/dL (<12)
== END 2022-11-13 10:40 | disposition home or self-care (01) ==
LOC: HO.LAB 10:39
PROVIDERS: PCP Internal Medicine; Visit Provider Internal Medicine Hypertension Specialist
DX: I12.9 Hypertensive chronic kidney disease with stage 1 through stage 4 chronic kidney disease, or unspecified chronic kidney disease (principal); E11.22 Type 2 diabetes mellitus with diabetic chronic kidney disease; N18.31 Chronic kidney disease, stage 3a; I25.799 Atherosclerosis of other coronary artery bypass graft(s) with unspecified angina pectoris; R42 Dizziness and giddiness; E78.2 Mixed hyperlipidemia
CPT/HCPCS: 36415; 80053; 80061; 81001; 81003; 82043; 82306; 83540; 84156; 85025

== ENCOUNTER 2023-02-11 14:27 | Outpatient (AMB) | payer OTHER, SELFPAY ==
[2023-02-11 14:40] VITALS: BP 128/60; PULSE 62; O2SAT 95; BMI 33.8
--- NOTE | 2023-02-11 14:40 | MHC.OFFVIS ---
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 His last sleep study occurred in [place] back in 2018 when he had a in-lab study demonstrating an AHI of 28 with hypoxia down to 75%. The patient is placed on CPAP in the CPAP therapy was very effective beneficial. However, the CPAP malfunction and is no longer working. The patient is been struggling with significant untreated obstructive sleep apnea. His is concerned because he stops breathing at nighttime and she needs to wake him up. He has significant snoring and also wakes him up with shortness of breath. He does have headaches at times. I am concerned because of increased cardiovascular risk. This point the patient needs to get another CPAP is set up with the [employer]. In the meantime the patient also complains of dyspnea on exertion. Moderate severity. He has been deconditioned and also has gained weight. He also does likely contributing. He has had multiple spirometries demonstrating some degree of decrease in the forced vital capacity. On examination appears to have some crepitations as well as crackles. He denies any significant exposure to any fumes or toxins. 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 Denies any exposure to any mold or farm animals. 10/15/2022 the patient is here for pulmonary follow-up visit. He continues to have significant daytime drowsiness. His [place] score continues to be elevated 06/06/2024. He is frustrated that he cannot use CPAP. The patient does have significant cardiovascular risk factors. We had him have a repeat sleep study demonstrating severe sleep apnea with an AHI of 37 with significant hypoxia. I am concerned that he is having untreated severe sleep apnea and this could result in worse cardiovascular outcomes. The patient needs to be set up with a new DME company and get re-initiated with CPAP. Therefore will send a script to a local DME company. In the meantime he continues to use his respiratory medicine with good effect. Denies any chest tightness or wheezing. He has not had to use his rescue inhaler. No recent imaging studies to review. Will send a script to his [employer] company for a new CPAP and ultimately have him return in 3-4 months with the CPAP in order to review the results and download. 02/11/2023 the patient is here for a pulmonary follow-up visit. He has lost about 20 lb. The patient has not been using his CPAP regularly. We did review his sleep study again demonstrating severe sleep apnea. The patient understands that he needs to use the machine specially with his cardiovascular risk factors. His mask is to type rate now he does not like it. Will go ahead and request a different mask for him. I did provide him with a medium F30 mask with the hope that he can tolerated better. He is complaining of neuropathy pains in his upper and lower extremities. He had been using trazodone for sleep. But then he was prescribed gabapentin which I believe will be a better agent. Therefore he can stop the trazodone may continue the gabapentin. The patient did not bring his CPAP in. He will bring it to the next visit. From a respiratory status the patient seems to be doing well at the current respiratory regimen. He has not required any prednisone. He does not use his rescue inhaler often. [facility] Medical History Atherosclerotic cardiovascular disease Bibasilar crackles CAD (coronary artery disease) Chronic systolic (congestive) heart failure Delusion of persecution Dyspnea Essential hypertension GERD (gastroesophageal reflux disease) HTN (hypertension) Hyperlipidemia LDL goal <70 Hypothyroidism Hypothyroidism ICD (implantable cardioverter-defibrillator) in place Insomnia Ischemic cardiomyopathy Obesity due to excess calories ROE (obstructive sleep apnea) ROE (obstructive sleep apnea) ROE on CPAP [id number] syndrome Reactive airway disease Sleep apnea Type 2 diabetes mellitus with diabetic polyneuropathy Type 2 diabetes mellitus with hyperglycemia, with long-term current use of insulin Surgical History History of bilateral cataract extraction History of open heart surgery Hx of CABG (~2019) Family History Father No problems noted. Mother CVD (cardiovascular disease) Social History Household Members: Spouse Housing: Apartment Alcohol intake: former Patient Tobacco Use Status: Never used Tobacco e-Cigarette/Vaping Use: Never Used Second Hand Smoke Exposure: No service: No Current occupational status: retired Cognitive needs: Yes Hearing needs: No Vision needs: Yes Review of Systems Const Reports daytime sleepiness, Reports snoring and Reports stops breathing during sleep Eyes Reports no additional complaints, Denies change in vision and Denies other visual disturbances Card Denies chest pain at rest, Denies chest pain with activity, Denies edema, Denies irregular heart rhythm, Denies claudication, Denies dyspnea, Denies dyspnea on exertion, Denies orthopnea, Denies paroxysmal nocturnal dyspnea and Denies slow heart rate Resp Reports cough, Denies dyspnea, Denies dyspnea on exertion and Reports snoring GI Denies abdominal pain, Denies change in bowel habits, Denies excessive flatus, Denies nausea and Denies vomiting Musc Denies abnormal gait, Denies atrophy, Denies deformity, Denies limited range of motion and Reports tingling Skin/Breast Denies bleeding lesions, Denies changing lesions and Denies rash Neuro Denies abnormal gait, Reports tingling and Reports paresthesias Physical Exam Vital Signs: Last Vital Signs Pulse 62 02/11/23 14:40 BP 128/60 02/11/23 14:40 Pulse Ox 95 02/11/23 14:40 Oxygen Delivery Method Room Air 02/11/23 14:40 BMI result Body Mass Index 33.8 Const General: cooperative, comfortable and no acute distress Orientation/consciousness: patient oriented x3 HEENT Other: Unremarkable Neck Neck: Yes normal visual inspection Chest Chest palpation & inspection: normal inspection of the chest Resp Auscultation: no crackles, no wheezes and diminished lung sounds Cardio Palpation: normal PMI Heart sounds: S1 normal heart sound present, S2 normal heart sound present, no gallops, no murmurs and no rubs GI Palpation (GI): Soft to palpation Back/Spine/Pelvis Other: unremarkable Skin General skin exam: no rashes or lesions noted Neuro General: patient oriented x3 Extrem General: Yes edema (1+) Psych Mental Status: mental status grossly normal Assessment & Plan Assessment & Plan (1) Reactive airway disease: Code(s): J45.909 - Unspecified asthma, uncomplicated Qualifiers: Asthma complication type: uncomplicated Asthma persistence: persistent Asthma severity: moderate Qualified Code(s): J45.40 - Moderate persistent asthma, uncomplicated (2) ROE (obstructive sleep apnea): Code(s): G47.33 - Obstructive sleep apnea (adult) (pediatric) (3) Dyspnea: Comment: Multifactorial. No significant hypoxia Code(s): R06.00 - Dyspnea, unspecified Qualifiers: Dyspnea type: dyspnea on exertion Qualified Code(s): R06.00 - Dyspnea, unspecified (4) ROE (obstructive sleep apnea): Code(s): G47.33 - Obstructive sleep apnea (adult) (pediatric) Plan Restart PAP therapy for the severe ROE disease, requesting F30 mask medium Continue short-acting beta agonist as needed Continue Symbicort twice a day stop trazodone 1-2 tablets at nighttime for sleep start Gabapentin 100mg at night Follow-up 3-4 months with APAP Medications: Refilled gabapentin 100 mg PO BEDTIME 30 days 30 caps 3RF Coding Level of Care Code Est Pt Level 4 (39218) Diagnoses Reactive airway disease J45.40 Asthma complication type: uncomplicated Asthma persistence: persistent Asthma severity: moderate ROE (obstructive sleep apnea) G47.33 Dyspnea R06.00 Dyspnea type: dyspnea on exertion Time Spent (min) 19
== END 2023-02-11 15:09 | disposition home or self-care (01) ==
PROVIDERS: PCP Internal Medicine; Visit Provider Hospitalist
DX: J45.40 Moderate persistent asthma, uncomplicated (principal); G47.33 Obstructive sleep apnea (adult) (pediatric); R06.00 Dyspnea, unspecified
CPT/HCPCS: 99214

== ENCOUNTER → 2023-02-11 14:27 | Outpatient (BNVA) | payer OTHER, SELFPAY | PROVIDERS: Visit Provider Hospitalist | DX: J45.50 Severe persistent asthma, uncomplicated (principal); R06.00 Dyspnea, unspecified; G47.33 Obstructive sleep apnea (adult) (pediatric); I25.10 Atherosclerotic heart disease of native coronary artery without angina pectoris; I10 Essential (primary) hypertension | CPT/HCPCS: 99212 ==

== ENCOUNTER → 2023-02-17 23:59 | Outpatient (BNV) | payer OTHER, SELFPAY ==
--- NOTE | 2023-02-20 12:00 | MHC.OFFVIS ---
Intake Intake Visit Reasons: Remote ICD Check- [employer] Allergies Penicillins Allergy (Intermediate, Verified 02/11/23 14:42) ITCHING PFSH Medical History Atherosclerotic cardiovascular disease Bibasilar crackles CAD (coronary artery disease) Chronic systolic (congestive) heart failure Delusion of persecution Dyspnea Essential hypertension GERD (gastroesophageal reflux disease) HTN (hypertension) Hyperlipidemia LDL goal <70 Hypothyroidism Hypothyroidism ICD (implantable cardioverter-defibrillator) in place Insomnia Ischemic cardiomyopathy Obesity due to excess calories ROE (obstructive sleep apnea) ROE (obstructive sleep apnea) ROE on CPAP [id number] syndrome Reactive airway disease Sleep apnea Type 2 diabetes mellitus with diabetic polyneuropathy Type 2 diabetes mellitus with hyperglycemia, with long-term current use of insulin Surgical History History of bilateral cataract extraction History of open heart surgery Hx of CABG (~2019) Family History Father No problems noted. Mother CVD (cardiovascular disease) Social History Household Members: Spouse Housing: Apartment Alcohol intake: former Patient Tobacco Use Status: Never used Tobacco e-Cigarette/Vaping Use: Never Used Second Hand Smoke Exposure: No service: No Current occupational status: retired Cognitive needs: Yes Hearing needs: No Vision needs: Yes Office Procedures Cardiac Device Check Cardiac Device Check Details: Date of service 02/17/2023; Battery life >8 years; normal lead parameters; no treated VT/VF; ; normal ICD function. [id number] Cardiac Interrogation, implant defibrillator w/interim Procedure code (CPT) selection complete Assessment & Plan Assessment & Plan (1) Chronic heart failure with preserved ejection fraction (HFpEF): Code(s): I50.32 - Chronic diastolic (congestive) heart failure Coding Level of Care Code Procedure Only Diagnoses Chronic heart failure with preserved ejection fraction (HFpEF) I50.32 CPT Codes Cardiac Device Check - Cardiac Device 13: [id number] Cardiac Interrogation, implant defibrillator w/interim ([id number])
== END ==
PROVIDERS: PCP Internal Medicine; Visit Provider Internal Medicine
DX: I25.5 Ischemic cardiomyopathy (principal); Z95.810 Presence of automatic (implantable) cardiac defibrillator
CPT/HCPCS: 93295

== ENCOUNTER → 2023-02-17 23:59 | Outpatient (BNV) | payer OTHER, SELFPAY ==
--- NOTE | 2023-02-20 11:58 | MHC.OFFVIS ---
Intake Intake Visit Reasons: Remote HF Monitoring- [employer] Allergies Penicillins Allergy (Intermediate, Verified 02/11/23 14:42) ITCHING PFSH Medical History Atherosclerotic cardiovascular disease Bibasilar crackles CAD (coronary artery disease) Chronic systolic (congestive) heart failure Delusion of persecution Dyspnea Essential hypertension GERD (gastroesophageal reflux disease) HTN (hypertension) Hyperlipidemia LDL goal <70 Hypothyroidism Hypothyroidism ICD (implantable cardioverter-defibrillator) in place Insomnia Ischemic cardiomyopathy Obesity due to excess calories ROE (obstructive sleep apnea) ROE (obstructive sleep apnea) ROE on CPAP [id number] syndrome Reactive airway disease Sleep apnea Type 2 diabetes mellitus with diabetic polyneuropathy Type 2 diabetes mellitus with hyperglycemia, with long-term current use of insulin Surgical History History of bilateral cataract extraction History of open heart surgery Hx of CABG (~2019) Family History Father No problems noted. Mother CVD (cardiovascular disease) Social History Household Members: Spouse Housing: Apartment Alcohol intake: former Patient Tobacco Use Status: Never used Tobacco e-Cigarette/Vaping Use: Never Used Second Hand Smoke Exposure: No service: No Current occupational status: retired Cognitive needs: Yes Hearing needs: No Vision needs: Yes Office Procedures Cardiac Device Check Cardiac Device Check Details: Date of service- 02/17/2023; based on impedance data and physiological variables, there is no evidence of worsening congestive heart failure. Patient activity 2 hrs/day. [id number] Cardiac Device Interrogation, cardio physiologic monitor Procedure code (CPT) selection complete Assessment & Plan Assessment & Plan (1) Chronic heart failure with preserved ejection fraction (HFpEF): Code(s): I50.32 - Chronic diastolic (congestive) heart failure Coding Level of Care Code Procedure Only Diagnoses Chronic heart failure with preserved ejection fraction (HFpEF) I50.32 CPT Codes Cardiac Device Check - Cardiac Device 15: [id number] Cardiac Device Interrogation, cardio physiologic monitor ([id number])
== END ==
PROVIDERS: PCP Internal Medicine; Visit Provider Internal Medicine
DX: I50.32 Chronic diastolic (congestive) heart failure (principal)
CPT/HCPCS: 93297

== ENCOUNTER 2023-03-05 10:29 | Outpatient (REF) | payer OTHER, SELFPAY ==
[2023-03-05 12:03] LABS: Alanine Aminotransferase 19 U/L (0-40); Albumin Level 3.4 g/dL (3.5-5.0); Alkaline Phosphatase 62 U/L (39-117); Anion Gap 15 (12-20); Aspartate Amino Transferase 18 U/L (5-37); Bilirubin Total 0.5 mg/dL (0.0-1.0); Blood Urea Nitrogen 22 mg/dL (9-16); Calcium 9.2 mg/dL (8.4-10.2); Carbon Dioxide 25 mmol/L (22-29); Chloride 104 mmol/L (96-108); Estimated Glomerular Filt Rate 50; Glucose Random 185 mg/dL (60-115); Potassium 4.8 mmol/L (3.3-5.1); Sodium 139 mmol/L (135-145); Total Protein 7.1 g/dL (6.5-8.0)
[2023-03-05 13:54] LABS: Creatinine Urine 83.41 mg/dL; Protein/Creatinine Ratio, Ur 2.36 (<0.2); Total Protein Urine Random 197 mg/dL (<12)
== END 2023-03-05 10:30 | disposition home or self-care (01) ==
LOC: HO.LAB 10:29
PROVIDERS: Absent Provider Internal Medicine; PCP Internal Medicine; Visit Provider Internal Medicine Hypertension Specialist
DX: N18.30 Chronic kidney disease, stage 3 unspecified (principal); E87.5 Hyperkalemia
CPT/HCPCS: 36415; 80053; 84156

== ENCOUNTER 2023-03-07 14:30 | Outpatient (AMB) | payer OTHER, SELFPAY ==
--- NOTE | 2023-03-07 14:33 | A.OFFPC_ITS ---
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 Accompanied by: Spouse Allergies Penicillins Allergy (Intermediate, Verified 03/07/23 15:11) ITCHING Medication List - Last Reconciled 03/07/23 by Sophie Fulton MD amlodipine 5 mg PO DAILY aspirin (Enteric Coated Aspirin) 81 mg PO DAILY blood sugar diagnostic (FreeStyle Lite Strips) As directed 4 times a day blood-glucose meter (FreeStyle Lite Meter kit) As directed budesonide-formoterol 160-4.5 mcg/actuation (Symbicort) 2 puffs inhalation BID 30 days cholecalciferol (vitamin D3) 50 mcg PO DAILY 90 days dulaglutide (Trulicity) 4.5 mg (0.5 mL) subcut QWEEK 90 days famotidine 20 mg PO BEDTIME 90 days flash glucose sensor (FreeStyle Manjit 14 Day Sensor kit) As directed every 14 days folic acid 1 mg PO DAILY 90 days furosemide 40 mg PO DAILY 90 days gabapentin 100 mg PO BEDTIME 30 days galantamine ER 8 mg PO QAM insulin aspart U-100 (Novolog FlexPen U-100 Insulin aspart) 20 units (0.2 mL) subcut QID 30 days insulin glargine U-300 conc (Toujeo Max U-300 SoloStar) 70 units (0.2333 mL) subcut DAILY 90 days lancets (FreeStyle Lancets) 1 gauge topical TID levothyroxine 50 mcg PO DAILY 90 days losartan 25 mg PO DAILY 90 days meclizine 12.5 mg PO Q12H PRN metformin 850 mg PO BID 90 days metoprolol succinate ER 100 mg PO DAILY pen needle, diabetic As directed pramipexole 0.5 mg PO DAILY rosuvastatin 40 mg PO DAILY Ventolin HFA 90 mcg/actuation (albuterol sulfate) 2 puffs PO Q6H PRN NS Tobacco use date assessed: 11/01/22 Fall risk assessment: No Falls in past year Last assessed Fall Risk: 03/07/23 Dental Screening Dental Screen Date: 03/07/23 Did you have a dental visit in the last 12 months?: Yes Did you have a dental problem in the last 6 months where you did not have access to dental care?: No Was dental information given to patient?: Patient has dentist HPI HPI Comments History of Present Illness Details This is a 72-year-old male with diabetes mellitus type 2 on long-term current use of insulin and chronic systolic congestive heart failure that comes accompanied by for his physical exam. A1c elevated but he admits not been compliant with metformin and does short-acting insulin only twice a day. I will increase metformin to a 1000 mg twice a day and recommend to take insulin as instructed. Diabetic eye exam was August 2022. Last colonoscopy was about 7-9 years ago and I will order Cologuard. Last echocardiogram was 2021 showing ejection fraction of 45%. He denies weight gain but has some bilateral leg edema. No chest pain or shortness of breath. Walks with a cane for gait stability. [facility] Medical History (Updated 03/07/23 @ 15:09 by Sophie Fulton MD) Atherosclerotic cardiovascular disease Bibasilar crackles CAD (coronary artery disease) Chronic systolic (congestive) heart failure Delusion of persecution Dyspnea Essential hypertension GERD (gastroesophageal reflux disease) HTN (hypertension) Hyperlipidemia LDL goal <70 Hypothyroidism Hypothyroidism ICD (implantable cardioverter-defibrillator) in place Insomnia Ischemic cardiomyopathy Obesity due to excess calories ROE (obstructive sleep apnea) ROE (obstructive sleep apnea) ROE on CPAP [id number] syndrome Reactive airway disease Sleep apnea Type 2 diabetes mellitus with diabetic polyneuropathy Type 2 diabetes mellitus with hyperglycemia, with long-term current use of insulin Surgical History (Updated 03/07/23 @ 14:57 by Sophie Fulton MD) H/O inguinal hernia repair History of bilateral cataract extraction History of open heart surgery History of tooth extraction Hx of CABG (~2019) Family History Father No problems noted. Mother CVD (cardiovascular disease) Social History Household Members: Spouse Housing: Apartment Alcohol intake: former Patient Tobacco Use Status: Never used Tobacco e-Cigarette/Vaping Use: Never Used Second Hand Smoke Exposure: No service: No Current occupational status: retired Cognitive needs: Yes Hearing needs: No Vision needs: Yes Questionnaire Thrive Questionnaire Date Thrive assessed: 11/01/22 RENNY-7 AMB Questionnaire RENNY-7 Date RENYN - 7 assessed: 11/01/22 Source: Developed by Drs. Godwin Street, Luisa Carlin, Lawrence Escamilla and colleagues, with an educational sonia from [employer]. Review of Systems Const All systems reviewed & are unremarkable except as noted in HPI and below Eyes Reports no additional complaints, Denies change in vision and Denies other visual disturbances Card Denies chest pain at rest, Denies chest pain with activity, Denies edema, Denies irregular heart rhythm, Denies claudication, Denies dyspnea, Denies dyspnea on exertion, Denies orthopnea, Denies paroxysmal nocturnal dyspnea and Denies slow heart rate Resp Denies cough, Denies dyspnea and Denies dyspnea on exertion GI Denies abdominal pain, Denies change in bowel habits, Denies excessive flatus, Denies nausea and Denies vomiting Denies urinary hesitancy, Denies urinary incontinence and Denies urinary urgency Musc Denies abnormal gait, Denies atrophy, Denies deformity and Denies limited range of motion Skin/Breast Denies bleeding lesions, Denies changing lesions and Denies rash Neuro Denies abnormal gait and Denies lack of coordination Physical exam (Primary Care) Vital Signs: Last Vital Signs BP 130/76 03/07/23 14:34 BMI result Body Mass Index 33.8 Tobacco/Smoking Status: Tobacco use Status Tobacco use date assessed 11/01/22 03/07/23 14:33 Patient Tobacco Use Status Never used Tobacco 03/07/23 14:33 e-Cigarette/Vaping Use Never Used 03/07/23 14:33 Thrive Assessment: Date of Thrive Assessment Date Thrive assessed 11/01/22 03/07/23 14:33 Const Orientation/consciousness: patient oriented x3 HENMT Head: Yes normal to inspection, Yes normocephalic and Yes atraumatic Ears: external ears normal Eyes General: appearance normal, both eyes and all related structures Eyelids: Yes eyelids normal Conjunctivae: conjunctivae normal Neck Neck: Yes normal visual inspection and Yes supple Resp Effort & Inspection: normal respiratory effort Auscultation: clear to auscultation bilaterally Cardio Jugular venous distension: no JVD Rate: regular rate Rhythm: regular rhythm Heart sounds: S1 normal heart sound present and S2 normal heart sound present GI Inspection: Yes normal to inspection Palpation (GI): Soft to palpation and nontender Auscultation: normal bowel sounds Skin General skin exam: no rashes or lesions noted Neuro General: patient oriented x3 and no focal motor deficits Extrem General: Yes full ROM Psych Appearance: grossly normal Results AMB Hemoglobin A1c AMB Hemoglobin A1c 9.9 % Last Edit by OREN Escobar on 03/07/23 14:4 7 Results Reviewed Results Reviewed: Laboratory Last Values Hgb A1c (Clinic) 9.9 % (4.0-6.0) H 03/07/23 14:33 Assessment and Plan Assessment & Plan (1) Physical exam: Code(s): Z00.00 - Encounter for general adult medical examination without abnormal findings Plan: Repeat in a year (2) Chronic heart failure with preserved ejection fraction (HFpEF): Code(s): I50.32 - Chronic diastolic (congestive) heart failure Plan: Continue diuretics as needed. The goal is to not gain 5 lb in a week. Follow- up with Cardiology. 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 Continue Trulicity. Increase long-acting insulin from 60 units to 65 units once a day. Continue short-acting insulin. A1c goal is equal or less than 7%. Orders: Orders Thyroid Stimulating Hormone Today E03.9 - Hypothyroidism, unspecified Lipid Panel 4 Months E78.5 - Hyperlipidemia, unspecified Microalbumin, Random (w Creat) 4 Months E11.9 - Type 2 diabetes mellitus without complications Vitamin D 25-OH Total 4 Months E55.9 - Vitamin D deficiency, unspecified NT-proBNP 4 Months I50.32 - Chronic diastolic (congestive) heart failure Comprehensive [place]. Panel Fast 4 Months I50.32 - Chronic diastolic (congestive) heart failure AMB Hemoglobin A1c Today E11.65 - Type 2 diabetes mellitus with hyperglycemia, Z79.4 - [facility] (current) use of insulin Referrals Cologuard Test Z12.11 - Encounter for screening for malignant neoplasm of colon, Z12.12 - Encounter for screening for malignant neoplasm of rectum Medications: New metformin 1,000 mg PO BID 90 days 180 tabs 1RF Changed From insulin glargine U-300 conc (Toujeo Max U-300 SoloStar) 70 units (0.2333 mL) subcut DAILY 90 days 20.997 mL 3RF E11.42 - Type 2 diabetes mellitus with diabetic polyneuropathy, 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 To insulin glargine U-300 conc (Toujeo Max U-300 SoloStar) 65 units (0.2167 mL) subcut DAILY 90 days 19.503 mL 3RF E11.42 - Type 2 diabetes mellitus with diabetic polyneuropathy, 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 Refilled dulaglutide (Trulicity) 4.5 mg (0.5 mL) subcut QWEEK 90 days 6.5 mL 3RF E11.65 - Type 2 diabetes mellitus with hyperglycemia, Z79.4 - [facility] (current) use of insulin famotidine 20 mg PO BEDTIME 90 days 90 tabs 1RF for heartburn furosemide 40 mg PO DAILY 90 days 90 tabs 1RF gabapentin 100 mg PO BEDTIME 30 days 30 caps 3RF levothyroxine 50 mcg PO DAILY 90 days 90 tabs 1RF meclizine 12.5 mg PO Q12H PRN 30 tabs 0RF for dizziness pramipexole 0.5 mg PO DAILY 90 tabs 0RF rosuvastatin 40 mg PO DAILY 90 tabs 1RF E78.5 - Hyperlipidemia, unspecified Coding Level of Care Code Est Pt Prev Care >65y(19223) Diagnoses Physical exam Z00.00 Chronic heart failure with preserved ejection fraction (HFpEF) I50.32 Type 2 diabetes mellitus with hyperglycemia, with long-term current use of insulin E11.65; Z79.4 Time Spent (min) 35
[2023-03-07 14:34] VITALS: BP 130/76; BMI 33.8
== END 2023-03-07 15:07 | disposition home or self-care (01) ==
PROVIDERS: PCP Internal Medicine; Visit Provider Internal Medicine
DX: Z00.00 Encounter for general adult medical examination without abnormal findings (principal); I50.32 Chronic diastolic (congestive) heart failure; E11.65 Type 2 diabetes mellitus with hyperglycemia; Z79.4 Long term (current) use of insulin
CPT/HCPCS: 83036; 99397

== ENCOUNTER 2023-03-07 15:13 | Outpatient (REF) | payer OTHER, SELFPAY ==
[2023-03-07 17:10] LABS: Creatinine Urine 94.68 mg/dL
[2023-03-07 17:24] LABS: Microalbum/Creatinine Ratio Ur 1626.5 ug/mg cr
[2023-03-07 17:34] LABS: Alanine Aminotransferase 22 U/L (0-40); Albumin Level 3.7 g/dL (3.5-5.0); Alkaline Phosphatase 65 U/L (39-117); Anion Gap 16 (12-20); Aspartate Amino Transferase 19 U/L (5-37); Bilirubin Total 0.4 mg/dL (0.0-1.0); Blood Urea Nitrogen 30 mg/dL (9-16); Carbon Dioxide 25 mmol/L (22-29); Chloride 103 mmol/L (96-108); Cholesterol 290 mg/dL; Estimated Glomerular Filt Rate 49; Glucose Fasting 166 mg/dL (60-99); HDL Cholesterol 49 mg/dL; LDL Cholesterol Calculated 204 mg/dl; Potassium 4.9 mmol/L (3.3-5.1); Sodium 139 mmol/L (135-145); Total Protein 7.4 g/dL (6.5-8.0); Triglycerides 187 mg/dL
[2023-03-07 17:49] LABS: Thyroid Stimulating Hormone 3.59 uIU/mL (0.32-4.0); Vitamin D 25-OH Total 53.8 ng/mL (>30)
[2023-03-11 21:24] LABS: NT-proBNP 449 pg/mL (<125)
== END 2023-03-07 15:14 | disposition home or self-care (01) ==
LOC: HO.LAB 15:13
PROVIDERS: PCP Internal Medicine; Visit Provider Internal Medicine
DX: E03.9 Hypothyroidism, unspecified (principal); E55.9 Vitamin D deficiency, unspecified; E11.9 Type 2 diabetes mellitus without complications; E78.5 Hyperlipidemia, unspecified; I11.0 Hypertensive heart disease with heart failure; I50.32 Chronic diastolic (congestive) heart failure
CPT/HCPCS: 36415; 80053; 80061; 82043; 82306; 83880; 84443

== ENCOUNTER → 2023-03-20 23:59 | Outpatient (BNV) | payer OTHER, SELFPAY ==
--- NOTE | 2023-03-24 18:22 | MHC.OFFVIS ---
Intake Intake Visit Reasons: Remote HF Monitoring- [employer] Allergies Penicillins Allergy (Intermediate, Verified 03/07/23 15:11) ITCHING PFSH Medical History (Updated 03/11/23 @ 19:45 by Sophie Fulton MD) Atherosclerotic cardiovascular disease Bibasilar crackles CAD (coronary artery disease) Chronic systolic (congestive) heart failure Delusion of persecution Dyspnea Essential hypertension GERD (gastroesophageal reflux disease) HTN (hypertension) Hyperlipidemia LDL goal <70 Hypothyroidism Hypothyroidism ICD (implantable cardioverter-defibrillator) in place Insomnia Ischemic cardiomyopathy Obesity due to excess calories ROE (obstructive sleep apnea) ROE (obstructive sleep apnea) ROE on CPAP [id number] syndrome Reactive airway disease Sleep apnea Type 2 diabetes mellitus with diabetic polyneuropathy Type 2 diabetes mellitus with hyperglycemia, with long-term current use of insulin Surgical History (Updated 03/07/23 @ 14:57 by Sophie Fulton MD) H/O inguinal hernia repair History of bilateral cataract extraction History of open heart surgery History of tooth extraction Hx of CABG (~2019) Family History Father No problems noted. Mother CVD (cardiovascular disease) Social History Household Members: Spouse Housing: Apartment Alcohol intake: former Patient Tobacco Use Status: Never used Tobacco e-Cigarette/Vaping Use: Never Used Second Hand Smoke Exposure: No service: No Current occupational status: retired Cognitive needs: Yes Hearing needs: No Vision needs: Yes Office Procedures Cardiac Device Check Cardiac Device Check Details: Date of service- 03/20/2023; based on impedance data and physiological variables, there is no evidence of worsening congestive heart failure. Activity about 2 hrs/day. [id number] Cardiac Device Interrogation, cardio physiologic monitor Procedure code (CPT) selection complete Assessment & Plan Assessment & Plan (1) Ischemic cardiomyopathy: Code(s): I25.5 - Ischemic cardiomyopathy Coding Level of Care Code Procedure Only Diagnoses Ischemic cardiomyopathy I25.5 CPT Codes Cardiac Device Check - Cardiac Device 15: [id number] Cardiac Device Interrogation, cardio physiologic monitor ([id number])
== END ==
PROVIDERS: PCP Internal Medicine; Visit Provider Internal Medicine
DX: I50.22 Chronic systolic (congestive) heart failure (principal)
CPT/HCPCS: 93297

== ENCOUNTER 2023-04-11 15:32 | Outpatient (AMB) | payer OTHER, SELFPAY ==
[2023-04-11 15:34] VITALS: BP 130/70; BMI 33.7
--- NOTE | 2023-04-11 15:34 | MHC.PC.OV ---
Vital Signs 04/11/23 15:34 Height 5 ft 7 in Weight 215 lb BMI 33.7 BP 130/70 Blood Pressure Location Lt brachial Position Sitting Intake Visit Reasons: frequent swelling in hands/feet, back pain Intake Note: Patient here c/o frequent hand and feet swelling, back pain Director Of Product Design Required: No Accompanied by: Self / Same As Patient Allergies Penicillins Allergy (Intermediate, Verified 04/11/23 16:02) ITCHING Medication List - Last Reconciled 04/11/23 by Sophie Fulton MD amlodipine 5 mg PO DAILY aspirin (Enteric Coated Aspirin) 81 mg PO DAILY blood sugar diagnostic (FreeStyle Lite Strips) As directed 4 times a day blood-glucose meter (FreeStyle Lite Meter kit) As directed budesonide-formoterol 160-4.5 mcg/actuation (Symbicort) 2 puffs inhalation BID 30 days cholecalciferol (vitamin D3) 50 mcg PO DAILY 90 days dulaglutide (Trulicity) 4.5 mg (0.5 mL) subcut QWEEK 90 days famotidine 20 mg PO BEDTIME 90 days flash glucose sensor (FreeStyle Manjit 14 Day Sensor kit) As directed every 14 days folic acid 1 mg PO DAILY 90 days furosemide 40 mg PO DAILY 90 days gabapentin 100 mg PO BEDTIME 30 days galantamine ER 8 mg PO QAM insulin aspart U-100 (Novolog FlexPen U-100 Insulin aspart) 20 units (0.2 mL) subcut QID 30 days insulin glargine U-300 conc (Toujeo Max U-300 SoloStar) 65 units (0.2167 mL) subcut DAILY 90 days lancets (FreeStyle Lancets) 1 gauge topical TID levothyroxine 50 mcg PO DAILY 90 days losartan 25 mg PO DAILY 90 days meclizine 12.5 mg PO Q12H PRN metformin 1,000 mg PO BID 90 days metoprolol succinate ER 100 mg PO DAILY pen needle, diabetic As directed pramipexole 0.5 mg PO DAILY rosuvastatin 40 mg PO DAILY Ventolin HFA 90 mcg/actuation (albuterol sulfate) 2 puffs PO Q6H PRN NS Tobacco use date assessed: 11/01/22 Fall risk assessment: No Falls in past year Last assessed Fall Risk: 04/11/23 Dental Screening Dental Screen Date: 04/11/23 Did you have a dental visit in the last 12 months?: No Did you have a dental problem in the last 6 months where you did not have access to dental care?: No Was dental information given to patient?: Patient has dentist HPI HPI Comments History of Present Illness Details This is a 72-year-old male with diabetes mellitus type 2 on long-term current use of insulin, hypertension, chronic kidney disease stage 3 and chronic systolic congestive heart failure that complains of some back pain with no radiation to the leg aggravated by activity. I will refer him to physical therapy. A1c within goal. Blood pressure stable. GFR mildly improved and this is follow by Nephrology. Last echocardiogram was November 2021 showing ejection fraction of 45%. He has not gain weight. I will order another echocardiogram and will follow with Cardiology in June. [facility] Medical History (Updated 04/11/23 @ 16:09 by Sophie Fulton MD) ROE (obstructive sleep apnea) Hypothyroidism Reactive airway disease [id number] syndrome Obesity due to excess calories ROE (obstructive sleep apnea) ROE on CPAP Ischemic cardiomyopathy Atherosclerotic cardiovascular disease GERD (gastroesophageal reflux disease) Hypothyroidism Type 2 diabetes mellitus with hyperglycemia, with long-term current use of insulin Type 2 diabetes mellitus with diabetic polyneuropathy Essential hypertension Chronic systolic (congestive) heart failure ICD (implantable cardioverter-defibrillator) in place HTN (hypertension) CAD (coronary artery disease) Hyperlipidemia LDL goal <70 Dyspnea Bibasilar crackles Sleep apnea Insomnia Delusion of persecution Surgical History H/O inguinal hernia repair History of tooth extraction Hx of CABG (~2019) History of open heart surgery History of bilateral cataract extraction Family History Father No problems noted. Mother CVD (cardiovascular disease) Social History Household Members: Spouse Housing: Apartment Alcohol intake: former Patient Tobacco Use Status: Never used Tobacco e-Cigarette/Vaping Use: Never Used Second Hand Smoke Exposure: No service: No Current occupational status: retired Cognitive needs: Yes Hearing needs: No Vision needs: Yes Questionnaire Thrive Questionnaire Date Thrive assessed: 11/01/22 RENNY-7 AMB Questionnaire RENNY-7 Date RENNY - 7 assessed: 11/01/22 Source: Developed by Drs. Godwin Street, Luisa Carlin, Lawrence Escamilla and colleagues, with an educational sonia from [employer]. Review of Systems Const All systems reviewed & are unremarkable except as noted in HPI and below Eyes Reports no additional complaints, Denies change in vision and Denies other visual disturbances Card Denies chest pain at rest, Denies chest pain with activity, Denies edema, Denies irregular heart rhythm, Denies claudication, Denies dyspnea, Denies dyspnea on exertion, Denies orthopnea, Denies paroxysmal nocturnal dyspnea and Denies slow heart rate Resp Denies cough, Denies dyspnea and Denies dyspnea on exertion GI Denies abdominal pain, Denies change in bowel habits, Denies excessive flatus, Denies nausea and Denies vomiting Denies urinary hesitancy, Denies urinary incontinence and Denies urinary urgency Musc Denies abnormal gait, Denies atrophy, Denies deformity and Denies limited range of motion Skin/Breast Denies bleeding lesions, Denies changing lesions and Denies rash Neuro Denies abnormal gait and Denies lack of coordination Physical exam (Primary Care) Vital Signs: Last Vital Signs BP 130/70 04/11/23 15:34 BMI result Body Mass Index 33.7 Tobacco/Smoking Status: Tobacco use Status Tobacco use date assessed 11/01/22 04/11/23 15:38 Patient Tobacco Use Status Never used Tobacco 04/11/23 15:38 e-Cigarette/Vaping Use Never Used 04/11/23 15:38 Thrive Assessment: Date of Thrive Assessment Date Thrive assessed 11/01/22 04/11/23 15:38 Eyes General: appearance normal, both eyes and all related structures Eyelids: Yes eyelids normal Conjunctivae: conjunctivae normal Neck Neck: Yes normal visual inspection and Yes supple Resp Effort & Inspection: normal respiratory effort Auscultation: clear to auscultation bilaterally Cardio Jugular venous distension: no JVD Rate: regular rate Rhythm: regular rhythm Heart sounds: S1 normal heart sound present and S2 normal heart sound present Extrem General: Yes full ROM Assessment and Plan Assessment & Plan (1) CKD (chronic kidney disease) stage 3, GFR 30-59 ml/min: Code(s): N18.30 - Chronic kidney disease, stage 3 unspecified Plan: Avoid NSAIDs. Keep blood pressure less than 130/80. Follow-up with nephrology. (2) Essential hypertension: Code(s): I10 - Essential (primary) hypertension Plan: Continue losartan and amlodipine. Blood pressure goal is equal or less than 130/80. (3) Chronic systolic (congestive) heart failure: Code(s): I50.22 - Chronic systolic (congestive) heart failure Plan: Follow-up with Cardiology. The goal is to not gain 5 lb in a week. Use diuretics as needed (4) Type 2 diabetes mellitus with hyperglycemia, with long-term current use of insulin: Code(s): E11.65 - Type 2 diabetes mellitus with hyperglycemia; Z79.4 - exterminator helper (current) use of insulin Plan: Continue insulin. A1c goal is equal or less than 7%. Orders: Orders CA echo transthoracic complete Today I50.32 - Chronic diastolic (congestive) heart failure PT Evaluation and Treatment Today M54.50 - Low back pain, unspecified Medications: Refilled rosuvastatin 40 mg PO DAILY 90 tabs 1RF E78.5 - Hyperlipidemia, unspecified Discontinued levothyroxine Discontinued Reason: Patient Refused 50 mcg PO DAILY 90 days 90 tabs 1RF Coding Level of Care Code Est Pt Level 4 (18373) Diagnoses CKD (chronic kidney disease) stage 3, GFR 30-59 ml/min N18.30 Essential hypertension I10 Chronic systolic (congestive) heart failure I50.22 Type 2 diabetes mellitus with hyperglycemia, with long-term current use of insulin E11.65; Z79.4 Time Spent (min) 22
== END 2023-04-11 16:10 | disposition home or self-care (01) ==
LOC: HO.HMGH 15:32
PROVIDERS: PCP Internal Medicine; Visit Provider Internal Medicine
DX: I13.0 Hypertensive heart and chronic kidney disease with heart failure and stage 1 through stage 4 chronic kidney disease, or unspecified chronic kidney disease (principal); N18.30 Chronic kidney disease, stage 3 unspecified; I50.22 Chronic systolic (congestive) heart failure; Z79.4 Long term (current) use of insulin; E11.65 Type 2 diabetes mellitus with hyperglycemia
CPT/HCPCS: 99214

== ENCOUNTER → 2023-04-20 23:59 | Outpatient (BNV) | payer OTHER, SELFPAY ==
--- NOTE | 2023-04-25 16:09 | MHC.OFFVIS ---
Intake Intake Visit Reasons: Remote HF monitoring- [employer] Allergies Penicillins Allergy (Intermediate, Verified 04/11/23 16:02) ITCHING PFSH Medical History (Updated 04/11/23 @ 16:09 by Sophie Fulton MD) ROE (obstructive sleep apnea) Hypothyroidism Reactive airway disease [id number] syndrome Obesity due to excess calories ROE (obstructive sleep apnea) ROE on CPAP Ischemic cardiomyopathy Atherosclerotic cardiovascular disease GERD (gastroesophageal reflux disease) Hypothyroidism Type 2 diabetes mellitus with hyperglycemia, with long-term current use of insulin Type 2 diabetes mellitus with diabetic polyneuropathy Essential hypertension Chronic systolic (congestive) heart failure ICD (implantable cardioverter-defibrillator) in place HTN (hypertension) CAD (coronary artery disease) Hyperlipidemia LDL goal <70 Dyspnea Bibasilar crackles Sleep apnea Insomnia Delusion of persecution Surgical History H/O inguinal hernia repair History of tooth extraction Hx of CABG (~2019) History of open heart surgery History of bilateral cataract extraction Family History Father No problems noted. Mother CVD (cardiovascular disease) Social History Household Members: Spouse Housing: Apartment Alcohol intake: former Patient Tobacco Use Status: Never used Tobacco e-Cigarette/Vaping Use: Never Used Second Hand Smoke Exposure: No service: No Current occupational status: retired Cognitive needs: Yes Hearing needs: No Vision needs: Yes Office Procedures Cardiac Device Check Cardiac Device Check Details: Date of service- 04/20/2023; based on impedance data and physiological variables, there is no evidence of worsening congestive heart failure. Patient activity about 2hrs/day. [id number] Cardiac Device Interrogation, cardio physiologic monitor Procedure code (CPT) selection complete Assessment & Plan Assessment & Plan (1) Chronic heart failure with preserved ejection fraction (HFpEF): Code(s): I50.32 - Chronic diastolic (congestive) heart failure Coding Level of Care Code Procedure Only Diagnoses Chronic heart failure with preserved ejection fraction (HFpEF) I50.32 CPT Codes Cardiac Device Check - Cardiac Device 15: [id number] Cardiac Device Interrogation, cardio physiologic monitor ([id number])
== END ==
PROVIDERS: PCP Internal Medicine; Visit Provider Internal Medicine
DX: I50.32 Chronic diastolic (congestive) heart failure (principal)
CPT/HCPCS: 93297

== ENCOUNTER 2023-04-23 15:00 | Outpatient (REF) | payer OTHER, SELFPAY ==
[2023-04-23 17:03] LABS: Thyroid Stimulating Hormone 2.72 uIU/mL (0.32-4.0)
== END 2023-04-23 15:01 | disposition home or self-care (01) ==
LOC: HO.LAB 15:00
PROVIDERS: PCP Internal Medicine; Visit Provider Internal Medicine
DX: E03.9 Hypothyroidism, unspecified (principal)
CPT/HCPCS: 36415; 84443

== ENCOUNTER → 2023-05-09 12:48 | Outpatient (REF) | payer OTHER, SELFPAY | LOC: HO.CARD 12:48 | PROVIDERS: PCP Internal Medicine; Visit Provider Internal Medicine | DX: I50.32 Chronic diastolic (congestive) heart failure (principal) | CPT/HCPCS: 93306; Q9957 ==

== ENCOUNTER → 2023-05-09 12:50 | Outpatient (BNV) | payer OTHER, SELFPAY | PROVIDERS: PCP Internal Medicine; Visit Provider Internal Medicine | DX: I36.1 Nonrheumatic tricuspid (valve) insufficiency (principal) | CPT/HCPCS: 93306 ==

== ENCOUNTER → 2023-05-20 23:59 | Outpatient (BNV) | payer OTHER, SELFPAY ==
--- NOTE | 2023-05-26 13:11 | MHC.OFFVIS ---
Intake Intake Visit Reasons: Remote ICD Check- [employer] Allergies Penicillins Allergy (Intermediate, Verified 04/11/23 16:02) ITCHING PFSH Medical History (Updated 04/11/23 @ 16:09 by Sophie Fulton MD) ROE (obstructive sleep apnea) Hypothyroidism Reactive airway disease [id number] syndrome Obesity due to excess calories ROE (obstructive sleep apnea) ROE on CPAP Ischemic cardiomyopathy Atherosclerotic cardiovascular disease GERD (gastroesophageal reflux disease) Hypothyroidism Type 2 diabetes mellitus with hyperglycemia, with long-term current use of insulin Type 2 diabetes mellitus with diabetic polyneuropathy Essential hypertension Chronic systolic (congestive) heart failure ICD (implantable cardioverter-defibrillator) in place HTN (hypertension) CAD (coronary artery disease) Hyperlipidemia LDL goal <70 Dyspnea Bibasilar crackles Sleep apnea Insomnia Delusion of persecution Surgical History H/O inguinal hernia repair History of tooth extraction Hx of CABG (~2019) History of open heart surgery History of bilateral cataract extraction Family History Father No problems noted. Mother CVD (cardiovascular disease) Social History Household Members: Spouse Housing: Apartment Alcohol intake: former Patient Tobacco Use Status: Never used Tobacco e-Cigarette/Vaping Use: Never Used Second Hand Smoke Exposure: No service: No Current occupational status: retired Cognitive needs: Yes Hearing needs: No Vision needs: Yes Office Procedures Cardiac Device Check Cardiac Device Check Details: Date of service 05/20/2023; Battery life >8 years; normal lead parameters; no treated VT/VF; ; normal ICD function. [id number] Cardiac Interrogation, implant defibrillator w/interim Procedure code (CPT) selection complete Assessment & Plan Assessment & Plan (1) Chronic systolic (congestive) heart failure: Code(s): I50.22 - Chronic systolic (congestive) heart failure Coding Level of Care Code Procedure Only Diagnoses Chronic systolic (congestive) heart failure I50.22 CPT Codes Cardiac Device Check - Cardiac Device 13: [id number] Cardiac Interrogation, implant defibrillator w/interim ([id number])
== END ==
PROVIDERS: PCP Internal Medicine; Visit Provider Internal Medicine
DX: I50.22 Chronic systolic (congestive) heart failure (principal); Z95.810 Presence of automatic (implantable) cardiac defibrillator
CPT/HCPCS: 93295

== ENCOUNTER → 2023-05-20 23:59 | Outpatient (BNV) | payer OTHER, SELFPAY ==
--- NOTE | 2023-05-26 13:07 | MHC.OFFVIS ---
Intake Intake Visit Reasons: Remote HF Monitoring- [employer] Allergies Penicillins Allergy (Intermediate, Verified 04/11/23 16:02) ITCHING PFSH Medical History (Updated 04/11/23 @ 16:09 by Sophie Fulton MD) ROE (obstructive sleep apnea) Hypothyroidism Reactive airway disease [id number] syndrome Obesity due to excess calories ROE (obstructive sleep apnea) ROE on CPAP Ischemic cardiomyopathy Atherosclerotic cardiovascular disease GERD (gastroesophageal reflux disease) Hypothyroidism Type 2 diabetes mellitus with hyperglycemia, with long-term current use of insulin Type 2 diabetes mellitus with diabetic polyneuropathy Essential hypertension Chronic systolic (congestive) heart failure ICD (implantable cardioverter-defibrillator) in place HTN (hypertension) CAD (coronary artery disease) Hyperlipidemia LDL goal <70 Dyspnea Bibasilar crackles Sleep apnea Insomnia Delusion of persecution Surgical History H/O inguinal hernia repair History of tooth extraction Hx of CABG (~2019) History of open heart surgery History of bilateral cataract extraction Family History Father No problems noted. Mother CVD (cardiovascular disease) Social History Household Members: Spouse Housing: Apartment Alcohol intake: former Patient Tobacco Use Status: Never used Tobacco e-Cigarette/Vaping Use: Never Used Second Hand Smoke Exposure: No service: No Current occupational status: retired Cognitive needs: Yes Hearing needs: No Vision needs: Yes Office Procedures Cardiac Device Check Cardiac Device Check Details: Date of service- 05/20/2023; based on impedance data and physiological variables, there is no evidence of worsening congestive heart failure. [id number] Cardiac Device Interrogation, cardio physiologic monitor Procedure code (CPT) selection complete Assessment & Plan Assessment & Plan (1) Ischemic cardiomyopathy: Code(s): I25.5 - Ischemic cardiomyopathy Coding Level of Care Code Procedure Only Diagnoses Ischemic cardiomyopathy I25.5 CPT Codes Cardiac Device Check - Cardiac Device 15: [id number] Cardiac Device Interrogation, cardio physiologic monitor ([id number])
== END ==
PROVIDERS: PCP Internal Medicine; Visit Provider Internal Medicine
DX: I25.5 Ischemic cardiomyopathy (principal)
CPT/HCPCS: 93297

== ENCOUNTER 2023-05-26 22:11 | Inpatient (IN) | payer OTHER, SELFPAY ==
--- NOTE | ~2023-05-26 | CT_ITS ---
EXAMINATION: CT CHEST WITHOUT CONTRAST CLINICAL INFORMATION: Hypoxic COMPARISON: 10/23/2022 TECHNIQUE: Multidetector volumetric CT imaging of the chest was done. Axial MIP volume rendering provided. Sagittal and coronal reformatted images were obtained. This CT examination was performed using dose optimization techniques as appropriate, variously including the following: *Automated exposure control *Adjustment of mA and/or kV according to patient size (this includes techniques or standardized protocols for targeted exams where dose is matched to indication/reason for exam; i.e. extremities or head) *Use of iterative reconstruction technique DLP: 402 mGy-cm FINDINGS: LUNGS: Minimal apical emphysema. Calcified granuloma is present in the left upper lobe. No regions of consolidation bilaterally. Curvilinear atelectasis in the anterior right middle lobe. Mild bronchial wall thickening redemonstrated bilaterally. MEDIASTINUM: The visualized thyroid gland is unremarkable. Scattered subcentimeter mediastinal lymph nodes, without significant enlargement. Cardiac size is within normal limits; no pericardial effusion. Left-sided AICD lead tip extends to the right ventricle. CORONARY ARTERY CALCIFICATION: Present, status post CABG PLEURA: No pneumothorax or pleural effusion. AXILLA: No lymphadenopathy. UPPER ABDOMEN: Visualized portions of the upper abdomen are within normal limits. OSSEOUS STRUCTURES: Status post sternotomy with stable appearance of separation of sternal fragments.. CT/CT chest wo IV con IMPRESSION: No new suspicious findings identified in the chest. Mild bronchial wall thickening redemonstrated, which can be seen with acute or chronic bronchitis.
--- NOTE | ~2023-05-26 | XR_ITS ---
EXAMINATION: XR CHEST CLINICAL INFORMATION: Question pulmonary edema COMPARISON: Chest radiograph from 08/09/2019 TECHNIQUE: Frontal view of the chest was obtained. FINDINGS: Stable elevation the right hemidiaphragm. Bilateral low lung volumes. Accentuation of the pulmonary vasculature. No pneumothorax. Sternotomy wires with multiple fractures of the first cranial two wires. Left chest wall pacer, stable. Cardiac mediastinal silhouette is stable. No large pleural effusion. Osseous structures are intact. Soft tissues are unremarkable. XR/XR chest 1V IMPRESSION: 1. Stable elevation the right hemidiaphragm. 2. Bilateral low lung volumes. 3. Accentuation of the pulmonary vasculature. 4. Sternotomy wires with multiple fractures of the first cranial two wires.
[2023-05-26 22:14] VITALS: BP 154/80; PULSE 69; RESP 16; TEMP 36.8; O2SAT 94; BMI 34.3
--- NOTE | 2023-05-26 23:10 | ECG_ITS ---
Test Reason : DYSPNEA Blood Pressure : / mmHG Vent. Rate : 065 BPM Atrial Rate : 065 BPM P-R Int : 168 ms QRS Dur : 084 ms QT Int : 398 ms P-R-T Axes : 042 019 098 degrees QTc Int : 413 ms Sinus rhythm with occasional Premature ventricular complexes Nonspecific T wave abnormality Abnormal ECG When compared with ECG of 28-FEB-2022 11:29, Premature ventricular complexes are now Present T wave inversion no longer evident in Inferior leads Lateral leads Referred By: Zakia Quiroz Electronically Signed By:MEME CARMONA MD
--- NOTE | 2023-05-26 23:11 | ED.SOB ---
HPI - SOB/Dyspnea General Chief Complaint: Dyspnea Stated Complaint: Sob Time Seen by Provider: 05/26/23 22:38 Source: patient and family Mode of arrival: ambulatory Limitations: no limitations History of Present Illness HPI Narrative: Patient comes to the emergency room accompanied by his son. Patient states that he was brought to the hospital due to the insistence of his son and his . For the last 3-4 weeks, patient has been complaining of gradual shortness of breath that is much worse with exertion. Also, the patient's son states that the patient has history of medication noncompliance. Patient makes up his own insulin sliding scale, patient does not follow directions, patient has had episodes of hypoglycemia because he injects large amounts of insulin when his blood glucose is high. At this time, the main concerns that patient has been gradually becoming more short of breath. Patient states that this time he has no chest pain, shortness of breath only when he bends down or starts walking. Related Data Previous Rx's Medication Instructions Recorded blood-glucose meter (FreeStyle #1 ea 10/05/20 Lite Meter kit) flash glucose sensor (FreeStyle #2 ea 01/04/22 Manjit 14 Day Sensor kit) lancets 28 gauge (FreeStyle 1 gauge topical TID #100 ea 01/04/22 Lancets) budesonide-formoterol HFA 160 2 puff inhalation BID 30 days 09/24/22 mcg-4.5 mcg/actuation aerosol #10.2 grams inhaler (Symbicort) folic acid 1 mg tablet 1 mg PO DAILY 90 days #90 tabs 09/24/22 galantamine 8 mg 24 hr 8 mg PO QAM #90 caps 09/24/22 capsule,extended release cholecalciferol (vitamin D3) 50 50 mcg PO DAILY 90 days #90 caps 11/01/22 mcg (2,000 unit) capsule insulin aspart U-100 100 unit/mL 20 unit (0.2 mL) subcut QID 30 11/01/22 (3 mL) subcutaneous pen (Novolog days #24 mL FlexPen U-100 Insulin aspart) blood sugar diagnostic (FreeStyle #100 ea 01/05/23 Lite Strips) dulaglutide 4.5 mg/0.5 mL 4.5 mg (0.5 mL) subcut QWEEK 90 03/07/23 subcutaneous pen injector days #6.5 mL (Trulicity) famotidine 20 mg tablet 20 mg PO BEDTIME for heartburn 90 03/07/23 days #90 tabs furosemide 40 mg tablet 40 mg PO DAILY 90 days #90 tabs 03/07/23 gabapentin 100 mg capsule 100 mg PO BEDTIME 30 days #30 caps 03/07/23 insulin glargine U-300 conc 300 65 unit (0.2167 mL) subcut DAILY 03/07/23 unit/mL (3 mL) subcutaneous pen 90 days #19.503 mL (Toujeo Max U-300 SoloStar) meclizine 12.5 mg tablet 12.5 mg PO Q12H PRN for dizziness 03/07/23 #30 tabs metformin 1,000 mg tablet 1,000 mg PO BID 90 days #180 tabs 03/07/23 pramipexole 0.5 mg tablet 0.5 mg PO DAILY #90 tabs 03/07/23 aspirin 81 mg tablet,delayed 81 mg PO DAILY #90 tabs 03/14/23 release (Enteric Coated Aspirin) amlodipine 5 mg tablet 5 mg PO DAILY #90 tabs 03/29/23 metoprolol succinate 100 mg 100 mg PO DAILY #90 tabs 03/29/23 tablet,extended release 24 hr pen needle, diabetic 32 gauge x #50 ea 03/29/23 Ventolin HFA 90 mcg/actuation 2 puff PO Q6H PRN for wheezing #18 04/03/23 aerosol inhaler (albuterol sulfate) ea rosuvastatin 40 mg tablet 40 mg PO DAILY #90 tabs 04/11/23 losartan 25 mg tablet 25 mg PO DAILY 90 days #90 tabs 05/20/23 Allergies Allergy/AdvReac Type Severity Reaction Status Date / Time Penicillins Allergy Intermediate ITCHING Verified 04/11/23 16:02 Review of Systems Review of Systems: Constitutional : No Weight loss, No Fever, No Chills, No Night Sweats, No Fatigue, No Malaise ENT/Mouth : No Hearing loss, No Ear Pain, No Nasal Congestion, No Sinus Pain, No Hoarseness, No sore throat, No Rhinorrhea, No Swallowing Difficulty Eyes: No Eye Pain, No Swelling, No Redness, No Foreign Body, No Discharge, No Vision Changes Cardiovascular : No Chest Pain, complaining of mild shortness of breath at rest and worsening dyspnea with exertion, patient complaining of lower extremity edema, intermittently takes medications/medics Respiratory : No Cough, No Sputum, No Wheezing, No Smoke Exposure, dyspnea with exertion Gastrointestinal : No Nausea, No Vomiting, No Diarrhea, No Constipation, No abdominal Pain, No Hematochezia, No Melena Genitourinary : no irregular bleeding, No Dysuria, No Urinary Frequency, No Hematuria, No Urinary Incontinence, No Urgency, No Flank Pain, No Urinary Flow Changes, No Hesitancy Musculoskeletal : No joint pain, No Myalgias, No Joint Swelling Skin : No Skin Lesions, No rash Neuro : No Weakness, No Numbness, No Paresthesias, No Loss of Consciousness, No Dizziness, No Headache Psych : No Anxiety/Panic, No Depression, No SI/HI/AH/VH, No Social Issues, Heme/Lymph: No Bruising, No Bleeding,No Lymphadenopathy Endocrine : No Polyuria, No Polydipsia, No Temperature Intolerance PMFSH Past Medical History Medical History ROE (obstructive sleep apnea) Hypothyroidism 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 Obesity due to excess calories ROE (obstructive sleep apnea) ROE on CPAP Ischemic cardiomyopathy Atherosclerotic cardiovascular disease GERD (gastroesophageal reflux disease) Hypothyroidism Type 2 diabetes mellitus with hyperglycemia, with long-term current use of insulin Type 2 diabetes mellitus with diabetic polyneuropathy Essential hypertension Chronic systolic (congestive) heart failure ICD (implantable cardioverter-defibrillator) in place HTN (hypertension) CAD (coronary artery disease) Hyperlipidemia LDL goal <70 Dyspnea Bibasilar crackles Sleep apnea Insomnia Delusion of persecution Surgical History H/O inguinal hernia repair History of tooth extraction Hx of CABG (~2019) History of open heart surgery History of bilateral cataract extraction Family History Family History Father No problems noted. Mother CVD (cardiovascular disease) Social History Social History Household Members: Spouse Housing: Apartment Alcohol intake: former Patient Tobacco Use Status: Never used Tobacco Smoked in Last 30 Days: No e-Cigarette/Vaping Use: Never Used Second Hand Smoke Exposure: No Use of substances other than those prescribed or required for medical reasons: No Advance Directives: No Advance Directives Information Provided: No service: No Current occupational status: retired Cognitive needs: Yes Hearing needs: No Vision needs: Yes Physical Exam Vital Signs: Vital Signs: Last Vital Signs Temp 98.3 F 05/26/23 22:14 Pulse 65 05/26/23 23:18 Resp 18 05/26/23 23:18 BP 154/80 H 05/26/23 22:14 Pulse Ox 95 05/26/23 23:18 O2 Del Method Room Air 05/26/23 23:18 BMI result Body Mass Index 34.3 Const: Other: Appearance: Alert. Oriented X3. No acute distress. Eyes: Pupils equal, round and reactive to light. ENT: Pharynx normal. Neck: Normal inspection. Neck supple. No lymph nodes noted. No crepitus CVS: Normal heart rate and rhythm. Pulses normal. Normal S1 and S2 Respiratory: No respiratory distress. Breath sounds normal. No Wheezing. No rales Abdomen: Soft and nontender. No rigidity. No distention. Skin: Skin warm and dry. Normal skin color. Normal skin turgor. Extremities: No lower extremity edema. No Lacerations. No Rash Neuro: Oriented X 3. No motor deficit. No sensory deficit. Moving all extremities. No slurred speech. CN 2 through 12 grossly intact Psych: calm, cooperative, normal affect Course Course Course Narrative: -all of patient's labs and imaging pending -ambulation trial pending Medical Decision Making Medical Decision Making MDM Narrative: -my interpretation of labs: Normal white blood cell count, BNP 136. Creatinine 1.94, unclear if this is acute versus chronic. -interpretation of chest x-ray and CT scan of the chest: No obvious abnormalities, no pneumonia, no overt edema -when patient walks, his oxygen saturation drops to 83%, patient becomes tachypneic, recovers with rest. No chest pain. -is possible the patient may have CHF exacerbation, patient does have lower extremity edema. -CT scan for pulmonary embolism cannot be done due to patient's elevated creatinine. Pulmonary embolism is not suspected. Patient has been having the symptoms for 3+ weeks. Symptoms are not present when patient is at rest -I discussed the patient with Dr. Vazquez, patient being admitted Differential Diagnosis Differential Diagnoses: The differential diagnosis associated with the presentation includes (CHF, pneumonia, deconditioning, viral illness) Admission/Observation Consideration of admission/observation: Escalation of care including admission/observation considered Consult Healthcare Provider Management of the patient was discussed with: Hospitalist Lab Data [facility] Lab Attestation statement: I reviewed the patient's lab results. 05/26/23 23:43 05/26/23 23:43 Labs: Lab Results 05/26/23 05/26/23 Range/Units 23:43 23:48 WBC 10.4 (4.8-10.8) X10*3/uL RBC 4.45 L (4.60-5.80) X10*6/uL Hgb 13.1 L (14.0-18.0) g/dl Hct 40.6 L (42.0-52.0) % MCV 91.2 (80.0-98.0) fL MCH 29.4 (27.0-33.0) pg MCHC 32.3 (31.0-36.0) g/dl RDW 14.4 (11.0-16.0) % Plt Count 210 (160-400) X10*3/uL MPV 9.5 (9.4-12.4) fL Immature Gran % (Auto) 0.3 (0.0-0.4) % Neut % (Auto) 61.8 (45-73) % Lymph % (Auto) 20.6 (20-40) % Hubbard % (Auto) 13.6 H (2-11) % Eos % (Auto) 3.3 (0-4) % Baso % (Auto) 0.4 (0-2) % Lymph # (Auto) 2.1 (1.2-4.9) X10*3/uL Hubbard # (Auto) 1.4 H (0.1-1.2) X10*3/uL Eos # (Auto) 0.3 (0.0-0.4) X10*3/uL Baso # (Auto) 0.0 (0.0-0.2) X10*3/uL Abs Immat Gran (auto) 0.03 (0.00-0.03) X10*3/uL Absolute Neuts (auto) 6.4 (2.0-8.3) x10*3/uL Absolute Nucleated RBC 0.000 (0.0-0.012) X10*3/uL Nucleated RBC % (auto) 0.0 (0.0-0.2) /100WBC PT 11.0 L (11.1-13.3) SEC INR 0.9 (0.9-1.1) VBG pH 7.36 (7.32-7.43) VBG pCO2 53 mmHg VBG pO2 43 mmHg VBG HCO3 30 H (22-26) mmol/L VBG O2 Saturation 67.0 % VBG Base Excess 3.7 mmol/L Sodium 141 (135-145) mmol/L Potassium 4.5 (3.3-5.1) mmol/L Chloride 106 (96-108) mmol/L Carbon Dioxide 25 (22-29) mmol/L Anion Gap 15 (12-20) BUN 33 H (9-16) mg/dL Creatinine 1.94 H (0.5-1.4) mg/dL Estim Creat Clear Calc 33.9 Estimated GFR 34 Random Glucose 195 H (60-115) mg/dL Calcium 9.7 (8.4-10.2) mg/dL Magnesium 2.0 (1.6-2.6) mg/dL Total Bilirubin 0.3 (0.0-1.0) mg/dL Direct Bilirubin 0.2 (0.0-0.5) mg/dL AST 22 (5-37) U/L ALT 25 (0-40) U/L Alkaline Phosphatase 69 (39-117) U/L Troponin I High Sens 6.5 (<3.5-35.0) ng/L B-Natriuretic Peptide 138 H (<100) pg/mL Total Protein 7.4 (6.5-8.0) g/dL Albumin 3.7 (3.5-5.0) g/dL COVID-19 ([facility]) Negative (Negative) COVID-19 Clin Com See Note Independent Interpretation I performed an independent interpretation of an: EKG, Plain X-Ray and CT Scan Interpretation: My interpretation EKG: Normal sinus rhythm, heart rate 65, no ST segment depression or elevation, marked sinus arrhythmia, QTC 413 Radiology Impression Discussion of test interpretation with radiology: I have reviewed the radiologist's reading. Radiologist Impression: FINDINGS: LUNGS: Minimal apical emphysema. Calcified granuloma is present in the left upper lobe. No regions of consolidation bilaterally. Curvilinear atelectasis in the anterior right middle lobe. Mild bronchial wall thickening redemonstrated bilaterally. MEDIASTINUM: The visualized thyroid gland is unremarkable. Scattered subcentimeter mediastinal lymph nodes, without significant enlargement. Cardiac size is within normal limits; no pericardial effusion. Left-sided AICD lead tip extends to the right ventricle. CORONARY ARTERY CALCIFICATION: Present, status post CABG PLEURA: No pneumothorax or pleural effusion. AXILLA: No lymphadenopathy. UPPER ABDOMEN: Visualized portions of the upper abdomen are within normal limits. OSSEOUS STRUCTURES: Status post sternotomy with stable appearance of separation of sternal fragments.. CT/CT chest wo IV con IMPRESSION: No new suspicious findings identified in the chest. Mild bronchial wall thickening redemonstrated, which can be seen with acute or chronic bronchitis. Independent Historian Clinical information obtained from an independent historian. History obtained from or confirmed by: Other (Patient's son) External Record Review External record reviewed: Inpatient record and Outpatient record Chronic Conditions Patient?s care impacted by: Diabetes and Hypertension Critical Care Time Critical Care Time Critical Care Time: Yes Total Critical Care Time: 60 Attestation: I have personally provided critical care time. Time includes review of lab data, radiology results, discussion with consultants, and monitoring for potential decompensation. Intervention performed as documented. Discharge Plan Discharge Clinical Impression: CHF (congestive heart failure), Acute dyspnea, Oxygen desaturation Patient Disposition: Admitted As Inpatient Prescriptions: No Action (DME) blood-glucose meter [FreeStyle Lite Meter] Kit See Rx Instructions .ROUTE .MEDSUPPLY Qty: 1 0RF Rx Instructions: As directed (DME) FreeStyle Manjit 14 Day Sensor Kit See Rx Instructions .Route Qty: 2 11RF Rx Instructions: As directed every 14 days lancets [FreeStyle Lancets] 28 gauge misc 1 gauge topical TID Qty: 100 11RF budesonide-formoterol [Symbicort] 160-4.5 mcg/actuation HFA aerosol inhaler 2 puff inhalation BID 30 Days Qty: 10.2 0RF folic acid 1 mg tablet 1 mg PO DAILY 90 Days Qty: 90 0RF galantamine 8 mg capsule,ext rel. pellets 24 hr 8 mg PO QAM Qty: 90 1RF (DME) FreeStyle Lite Strips Strip See Rx Instructions .Route Qty: 100 11RF Rx Instructions: As directed 4 times a day aspirin [Enteric Coated Aspirin] 81 mg tablet,delayed release (DR/EC) 81 mg PO DAILY Qty: 90 0RF metoprolol succinate 100 mg tablet extended release 24 hr 100 mg PO DAILY Qty: 90 0RF (DME) pen needle, diabetic 32 gauge x 5/32 needle See Rx Instructions subcut .MEDSUPPLY Qty: 50 0RF Rx Instructions: As directed amlodipine 5 mg tablet 5 mg PO DAILY Qty: 90 0RF albuterol sulfate [Ventolin HFA] 90 mcg/actuation HFA aerosol inhaler 2 puff PO Q6H PRN (Reason: for wheezing) Qty: 18 5RF losartan 25 mg tablet 25 mg PO DAILY 90 Days Qty: 90 0RF cholecalciferol (vitamin D3) 50 mcg (2,000 unit) capsule 50 mcg PO DAILY 90 Days Qty: 90 1RF insulin aspart U-100 [Novolog FlexPen U-100 Insulin] 100 unit/mL (3 mL) insulin pen 20 unit subcut QID 30 Days Qty: 24 6RF Trulicity 4.5 mg/0.5 mL pen injector 4.5 mg subcut QWEEK 90 Days Qty: 6.5 3RF famotidine 20 mg tablet 20 mg PO BEDTIME 90 Days Qty: 90 1RF furosemide 40 mg tablet 40 mg PO DAILY 90 Days Qty: 90 1RF gabapentin 100 mg capsule 100 mg PO BEDTIME 30 Days Qty: 30 3RF meclizine 12.5 mg tablet 12.5 mg PO Q12H PRN (Reason: for dizziness) Qty: 30 0RF pramipexole 0.5 mg tablet 0.5 mg PO DAILY Qty: 90 0RF metformin 1,000 mg tablet 1,000 mg PO BID 90 Days Qty: 180 1RF Toujeo Max U-300 SoloStar 300 unit/mL (3 mL) insulin pen 65 unit subcut DAILY 90 Days Qty: 19.503 3RF rosuvastatin 40 mg tablet 40 mg PO DAILY Qty: 90 1RF
[2023-05-26 23:18] VITALS: PULSE 65; RESP 18; O2SAT 95
[2023-05-26 23:49] LABS: Basophils Percent Auto 0.4 % (0-2); Eosinophils Absolute Auto 0.3 X10*3/uL (0.0-0.4); Eosinophils Percent Auto 3.3 % (0-4); Hematocrit 40.6 % (42.0-52.0); Hemoglobin 13.1 g/dl (14.0-18.0); Imm Gran Abs Auto 0.03 X10*3/uL (0.00-0.03); Imm Gran Pct Auto 0.3 % (0.0-0.4); Lymphocytes Absolute Auto 2.1 X10*3/uL (1.2-4.9); Lymphocytes Percent Auto 20.6 % (20-40); MANUAL DIFF FLAG NO; Mean Corpuscular HGB Conc 32.3 g/dl (31.0-36.0); Mean Corpuscular Hemoglobin 29.4 pg (27.0-33.0); Mean Corpuscular Volume 91.2 fL (80.0-98.0); Mean Platelet Volume 9.5 fL (9.4-12.4); Monocytes Absolute Auto 1.4 X10*3/uL (0.1-1.2); Monocytes Percent Auto 13.6 % (2-11); Neutrophils Absolute Auto 6.4 x10*3/uL (2.0-8.3); Neutrophils Percent Auto 61.8 % (45-73); Platelet Count 210 X10*3/uL (160-400); Red Blood Count 4.45 X10*6/uL (4.60-5.80); Red Cell Distribution Width 14.4 % (11.0-16.0); White Blood Count 10.4 X10*3/uL (4.8-10.8)
[2023-05-26 23:53] LABS: Venous Blood Gas Refer to POC result
[2023-05-26 23:53] LABS: VBG Base Excess 3.7 mmol/L; VBG HCO3 30 mmol/L (22-26); VBG pCO2 53 mmHg; VBG pH 7.36 (7.32-7.43); VBG pO2 43 mmHg
--- NOTE | 2023-05-26 23:53 | MHC.EDTECH ---
This Tech did a walking challenge per RN, On ROOM air not walking patient was at 93%. When I helped him out of bed it went dropped a little to 91%. When walking Patient (we went down by the Nurses station from his room, then turned around) had no complaints. I asked if any lite headed or dizziness and he denied it. He started to turn red, and his breathing was a little heavier, Then his O2 dropped to 87%. We returned back to his bed and his O2 was down to 83%, and he was visibly uncomfortable, but denying any concerns.
[2023-05-27] VITALS (8 sets, daily range): BP systolic 118–169; BP diastolic 55–86; PULSE 67–77; RESP 12–18; TEMP 36.5–37.2; O2SAT 93–97
[2023-05-27 00:02] LABS: COVID-19 Test Negative (Negative); IDNOW Serial# BCCEAD1C; INTERNATIONAL NORM RATIO 0.9 (0.9-1.1)
[2023-05-27 00:03] LABS: Alanine Aminotransferase 25 U/L (0-40); Albumin Level 3.7 g/dL (3.5-5.0); Alkaline Phosphatase 69 U/L (39-117); Anion Gap 15 (12-20); Aspartate Amino Transferase 22 U/L (5-37); Bilirubin Direct 0.2 mg/dL (0.0-0.5); Bilirubin Total 0.3 mg/dL (0.0-1.0); Blood Urea Nitrogen 33 mg/dL (9-16); Calcium 9.7 mg/dL (8.4-10.2); Carbon Dioxide 25 mmol/L (22-29); Chloride 106 mmol/L (96-108); Creatinine Clr Calc Pharmacy 33.9; Estimated Glomerular Filt Rate 34; Glucose Random 195 mg/dL (60-115); Potassium 4.5 mmol/L (3.3-5.1); Sodium 141 mmol/L (135-145); Total Protein 7.4 g/dL (6.5-8.0)
[2023-05-27 00:08] LABS: Troponin-I High Sensitivity 6.5 ng/L (<3.5-35.0)
[2023-05-27 00:09] LABS: B Type Natriuretic Peptide 138 pg/mL (<100)
--- NOTE | 2023-05-27 00:41 | PC.NURSE ---
this rn assumed care of pt. pt a&ox4. respirations even and unlabored. pt reports increasing shortness of breath for 3-4 weeks that worsens on exertion. pt sating at 95 room air at rest. pt denies chest pain, nausea vomiting and diarrhea. pt lung sounds clear bilaterally. pt normal sinus on tele 64-68.
--- NOTE | 2023-05-27 02:17 | PM.IMHP ---
History of Present Illness Date of Service: 05/27/23 Chief Complaint: Dyspnea This is a 72-year-old male with pertinent history of combined systolic and diastolic congestive heart failure, insulin-dependent diabetes mellitus, essential hypertension, COPD not on home oxygen, ROE not compliant with CPAP who presents to the emergency department for evaluation of dyspnea. Patient states she started having symptoms about 3 weeks prior to presentation. His dyspnea is worse with ambulation. Also has associated orthopnea and bilateral leg swelling. States he stopped taking his Lasix about 3 weeks prior to presentation as it would bother him and cause him to pee a lot. He denies wheezing or cough. No fever, chills, chest discomfort, palpitations, abdominal pain, changes in urinary or bowel habits. In the emergency department, patient was requiring supplemental oxygen. 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 Obesity due to excess calories ROE (obstructive sleep apnea) ROE on CPAP Ischemic cardiomyopathy Atherosclerotic cardiovascular disease GERD (gastroesophageal reflux disease) Hypothyroidism Type 2 diabetes mellitus with hyperglycemia, with long-term current use of insulin Type 2 diabetes mellitus with diabetic polyneuropathy Essential hypertension Chronic systolic (congestive) heart failure ICD (implantable cardioverter-defibrillator) in place HTN (hypertension) CAD (coronary artery disease) Hyperlipidemia LDL goal <70 Dyspnea Bibasilar crackles Sleep apnea Insomnia Delusion of persecution Family History Father No problems noted. Mother CVD (cardiovascular disease) Surgical History H/O inguinal hernia repair History of tooth extraction Hx of CABG (~2019) History of open heart surgery History of bilateral cataract extraction Social History Household Members: Spouse Housing: Apartment Alcohol intake: former Patient Tobacco Use Status: Never used Tobacco Smoked in Last 30 Days: No e-Cigarette/Vaping Use: Never Used Second Hand Smoke Exposure: No Use of substances other than those prescribed or required for medical reasons: No Advance Directives: No Advance Directives Information Provided: No service: No Current occupational status: retired Cognitive needs: Yes Hearing needs: No Vision needs: Yes Meds Allergies Allergy/AdvReac Type Severity Reaction Status Date / Time Penicillins Allergy Intermediate ITCHING Verified 04/11/23 16:02 Physical Exam Vital Signs and Narrative: Vital Signs: Last Vital Signs Temp 98.9 F 05/27/23 02:02 Pulse 70 05/27/23 02:02 Resp 18 05/27/23 02:02 BP 169/83 H 05/27/23 02:02 Pulse Ox 95 05/27/23 02:02 O2 Del Method Room Air 05/27/23 02:02 BMI result Body Mass Index 34.3 Middle-aged male lying in bed in mild distress with supplemental oxygen Regular rate and rhythm, S1-S2 heard Bilateral crackles without wheezing Abdomen soft nontender, no guarding, no rigidity Patient is awake, alert and oriented to self, place, time and person ; no focal motor deficit Psych: Normal mood Bilateral pedal edema Results Labs 05/26/23 23:43 05/26/23 23:43 Labs: Laboratory Results - last 24 hr 05/26/23 05/26/23 23:43 23:48 MCV 91.2 MCH 29.4 MCHC 32.3 RDW 14.4 Plt Count 210 MPV 9.5 Immature Gran % (Auto) 0.3 Neut % (Auto) 61.8 Lymph % (Auto) 20.6 [place] % (Auto) 13.6 H Eos % (Auto) 3.3 Baso % (Auto) 0.4 Lymph # (Auto) 2.1 [place] # (Auto) 1.4 H Eos # (Auto) 0.3 Baso # (Auto) 0.0 Abs Immat Gran (auto) 0.03 Absolute Neuts (auto) 6.4 Absolute Nucleated RBC 0.000 Nucleated RBC % (auto) 0.0 PT 11.0 L INR 0.9 VBG pH 7.36 VBG pCO2 53 VBG pO2 43 VBG HCO3 30 H VBG O2 Saturation 67.0 VBG Base Excess 3.7 Anion Gap 15 Estim Creat Clear Calc 33.9 Estimated GFR 34 Random Glucose 195 H Calcium 9.7 Magnesium 2.0 Total Bilirubin 0.3 Direct Bilirubin 0.2 AST 22 ALT 25 Alkaline Phosphatase 69 B-Natriuretic Peptide 138 H Total Protein 7.4 Albumin 3.7 COVID-19 ([facility]) Negative COVID-19 Clin Com See Note Imaging Radiologist's Impressions: Impressions Chest X-Ray 05/26/23 23:36 IMPRESSION: 1. Stable elevation the right hemidiaphragm. 2. Bilateral low lung volumes. 3. Accentuation of the pulmonary vasculature. 4. Sternotomy wires with multiple fractures of the first cranial two wires. Chest CT 05/27/23 00:40 IMPRESSION: No new suspicious findings identified in the chest. Mild bronchial wall thickening redemonstrated, which can be seen with acute or chronic bronchitis. Assessment and Plan (1) CHF (congestive heart failure): Status: Acute Plan This is a 72-year-old male with pertinent history of combined systolic and diastolic congestive heart failure, insulin-dependent diabetes mellitus, essential hypertension, COPD not on home oxygen, ROE not compliant with CPAP who presents to the emergency department for evaluation of dyspnea. #. Acute hypoxemic respiratory failure secondary to acute on chronic combined systolic and diastolic dysfunction, due to medication noncompliance: Will admit patient initiate IV diuresis. Strict I's and O's. Low-salt diet. Noted recent echocardiogram. Transition to p.o. Lasix once euvolemia is achieved. Monitor oxygen saturation wean as tolerated. Maintain oxygen saturation greater than 88% #. ROE: CPAP at bedtime #. Insulin-dependent diabetes mellitus with hyperglycemia: Initiating basal bolus insulin regimen. The son states that patient is not compliant with his insulin regimen and occasionally misses doses #. Essential hypertension: Continue home antihypertensives #. COPD: No exacerbation during admission. Continue home inhalers #. Mixed hyperlipidemia: On statin Med rec pending CHF DVT prophylaxis: Lovenox Admit as inpatient and will require two night minimum hospital stay for supplemental oxygen and IV diuresis Time Spent With Patient Time: Total time managing care of this patient today ____ minutes. Quality Stroke Does the patient have a stroke diagnosis?: No VTE Prior VTE?: No VTE Risk Level:: Medical - moderate - high VTE Device Contraindication: Treatment Not Indicated VTE Drug Contraindication: N/A - Med Ordered
--- NOTE | 2023-05-27 02:20 | PC.NURSE ---
this rn spoke with respiratory at bedside. pt reports having cpap at but does not use it. respiratory states to keep pt with nasal cannula as needed throughout the night. pt on room air baseline sating between 93-95%.
[2023-05-27] MEDS: Furosemide 40 MG/4 ML VIAL 60 MG IVPUSH (02:34)
--- NOTE | 2023-05-27 02:34 | PC.NURSE ---
ptgiven urinal at this time. pt medicated per oct. respiratory at bedside discussing pt care.
--- NOTE | 2023-05-27 02:38 | PC.NURSE ---
pt repositioned in bed. 2+ bilateral pitting edema noted in pt lower extremities.
--- NOTE | 2023-05-27 03:03 | PC.NURSE ---
this rn did med req with pt family member at bedside. pt reports pt takes medications whenever he feels like and random doses Pt reports taking trulicity once a day although the prescription is for once a week. pt reports not taking furosemide consistently because it causes him to urinate a lot.
[2023-05-27 05:24] LABS: MANUAL DIFF FLAG NO
[2023-05-27 05:26] LABS: Basophils Absolute Auto 0.1 X10*3/uL (0.0-0.2); Basophils Percent Auto 0.5 % (0-2); Eosinophils Absolute Auto 0.3 X10*3/uL (0.0-0.4); Eosinophils Percent Auto 3.1 % (0-4); Hematocrit 41.5 % (42.0-52.0); Hemoglobin 13.5 g/dl (14.0-18.0); Imm Gran Abs Auto 0.04 X10*3/uL (0.00-0.03); Imm Gran Pct Auto 0.4 % (0.0-0.4); Lymphocytes Absolute Auto 2.1 X10*3/uL (1.2-4.9); Lymphocytes Percent Auto 20.3 % (20-40); Mean Corpuscular HGB Conc 32.5 g/dl (31.0-36.0); Mean Corpuscular Hemoglobin 29.5 pg (27.0-33.0); Mean Corpuscular Volume 90.8 fL (80.0-98.0); Mean Platelet Volume 9.9 fL (9.4-12.4); Monocytes Absolute Auto 1.3 X10*3/uL (0.1-1.2); Monocytes Percent Auto 12.1 % (2-11); Neutrophils Absolute Auto 6.6 x10*3/uL (2.0-8.3); Neutrophils Percent Auto 63.6 % (45-73); Platelet Count 221 X10*3/uL (160-400); Red Blood Count 4.57 X10*6/uL (4.60-5.80); Red Cell Distribution Width 14.4 % (11.0-16.0); White Blood Count 10.4 X10*3/uL (4.8-10.8)
[2023-05-27 05:39] LABS: Anion Gap 16 (12-20); Blood Urea Nitrogen 30 mg/dL (9-16); Calcium 10.1 mg/dL (8.4-10.2); Carbon Dioxide 26 mmol/L (22-29); Chloride 105 mmol/L (96-108); Creatinine Clr Calc Pharmacy 36.9; Estimated Glomerular Filt Rate 38; Glucose Random 103 mg/dL (60-115); Potassium 3.9 mmol/L (3.3-5.1); Sodium 143 mmol/L (135-145)
[2023-05-27] MEDS: Enoxaparin Sodium 40 MG/0.4 ML SYRINGE SUBCUT (06:36)
--- NOTE | 2023-05-27 07:02 | PC.NURSE ---
Resumed care of patient at 0700, he is currently laying in bed, all needs met at this time. Pt is primarily Bahamian speaking. Awaiting bed placement at this time
[2023-05-27 07:18] LABS: Glucose, Whole Blood 100 mg/dL (60-115)
[2023-05-27] MEDS: Insulin Glargine,Hum.rec.anlog 100 UNIT/ML 10 ML VIAL 50 UNIT SUBCUT (07:44)
[2023-05-27] MEDS: Furosemide 100 MG/10 ML VIAL 60 MG IVPUSH (07:45)
[2023-05-27] MEDS: 0.9 % Sodium Chloride Flush 3 ML SYRINGE IVFLUSH ×2 (07:45→17:24)
--- NOTE | 2023-05-27 07:54 | PHA.MEDREC ---
Pharmacy Consult ? Medication Reconciliation Pharmacy has reviewed the medication reconciliation done by RN. Also added some medications that were recently picked up
[2023-05-27] MEDS: Albuterol/Iprat 2.5/0.5MG 3 ML AMPUL.NEB INHALE ×4 (08:09→19:49)
--- NOTE | 2023-05-27 08:41 | PC.RT ---
per family, patient non-compliant with CPAP at home. Refusing ordered nocturnal CPAP for admission
[2023-05-27] MEDS: metFORMIN HCl 1,000 MG TABLET 1000 MG PO ×2 (09:59→21:02)
[2023-05-27] MEDS: Aspirin Enteric Coated 81 MG TABLET.DR PO (09:59)
[2023-05-27] MEDS: Losartan Potassium 25 MG TABLET PO (09:59)
[2023-05-27] MEDS: Levothyroxine Sodium 50 MCG TABLET PO (09:59)
[2023-05-27] MEDS: Metoprolol Succinate ER 100 MG TAB.ER.24H PO (09:59)
[2023-05-27] MEDS: Folic Acid 1 MG TABLET PO (09:59)
[2023-05-27] MEDS: amLODIPine Besylate 5 MG TABLET PO (09:59)
[2023-05-27] MEDS: Cholecalciferol (Vitamin D3) 25 MCG TABLET 50 MCG PO (09:59)
[2023-05-27] MEDS: Insulin Glargine,Hum.rec.anlog 100 UNIT/ML 10 ML VIAL 52 UNIT SUBCUT (09:59)
--- NOTE | 2023-05-27 10:17 | MHC.CM.PN ---
PT REPORTS HE LIVES WITH HIS AND HAS DAILY SCHOOL OFFICE MANAGER SERVICES HE REPORTS HIS SON IS HIS SCHOOL OFFICE MANAGER, HE DENIES HAVING VNA PT REPORTS HE USES A CANE AT [facility] PT SAYS HE HAS A HCP NAMING HIS HIS AGENT, COPY REQUESTED PCP: VINCE FUNEZ IMM DELIVERED DCP: HOME, RESUME [employer] FAMILY TO TRANSPORT
--- NOTE | 2023-05-27 10:41 | PM.EVENT ---
Event Note Date of Service: 05/27/23 Event Note: This is a 72-year-old male with pertinent history of combined systolic and diastolic congestive heart failure, insulin-dependent diabetes mellitus, essential hypertension, COPD not on home oxygen, ROE not compliant with CPAP who presents to the emergency department for evaluation of dyspnea. Acute hypoxemic respiratory failure secondary to acute on chronic combined systolic and diastolic dysfunction, due to medication noncompliance continue IV diuresis. Strict I's and O's. Low-salt diet. Noted recent echocardiogram, EF 48% with RWMA Transition to p.o. Lasix once euvolemia is achieved. Monitor oxygen saturation wean as tolerated. Maintain oxygen saturation greater than 88% ROE CPAP at bedtime Insulin-dependent diabetes mellitus 2 with hyperglycemia sliding scale, lantus The son states that patient is not compliant with his insulin regimen and occasionally misses doses. therefore follow BS closely to avoid hypoglycemia with insulin Essential hypertension Continue home antihypertensives COPD No exacerbation during admission. Continue home inhalers Mixed hyperlipidemia On statin Med rec pending CHF DVT prophylaxis: Lovenox Admit as inpatient and will require two night minimum hospital stay for supplemental oxygen and IV diuresis Time Spent With Patient Time: Total time managing care of this patient today ____ minutes.
--- NOTE | 2023-05-27 11:30 | P.CONCA_ITS ---
History of Present Illness History of Present Illness Date of Service: 05/27/23 Requesting physician: Ct Calderón Consult reason: congestive heart failure Chief complaint: Dyspnea Narrative: I was consulted to see Ed in cardiology consultation today for decompensated congestive heart failure. Patient with prior history of heart failure with LV ejection fraction 48% with chronic kidney disease, hypertension, diabetes, obesity, obstructive sleep apnea, CAD. Patient noncompliant with medical therapy as per patient's son and the present bedside. Patient has not been taking his diuretic therapy for about 3 weeks or so. Had been having progressive shortness of breath including with exertion and also orthopnea along with significant leg swelling as per the son. He is also noncompliant with CPAP therapy and also takes medications as and how he prefers. He came to the hospital yesterday because of progressive shortness of breath over noticed to be hypoxemic and substance given IV Lasix and has diuresed well. He says he is breathing better. He is imminently stable. No chest pain reported. Review of Systems 2 Constitutional: Constitutional: Reports no additional constitutional complaints Eyes: Eyes: Reports no additional eye complaints Cardiovascular: Cardiovascular: Denies chest pain, Denies rapid heart rate, Reports leg edema, Denies lightheadedness, Denies palpitations, Reports dyspnea on exertion and Reports orthopnea Respiratory: Respiratory: Reports dyspnea on exertion Gastrointestinal: Gastrointestinal: Reports no additional gastrointestinal complaints Genitourinary: Genitourinary: Reports no additional male genitourinary complaints Musculoskeletal: Musculoskeletal: Reports no additional musculoskeletal complaints Neurologic: Reports system reviewed and no additional complaints, except as documented Endocrine: Endocrine: Denies palpitations PMFSH Past Medical History Medical History ROE (obstructive sleep apnea) Hypothyroidism Reactive airway disease [id number] syndrome Obesity due to excess calories ROE (obstructive sleep apnea) ROE on CPAP Ischemic cardiomyopathy Atherosclerotic cardiovascular disease GERD (gastroesophageal reflux disease) Hypothyroidism Type 2 diabetes mellitus with hyperglycemia, with long-term current use of insulin Type 2 diabetes mellitus with diabetic polyneuropathy Essential hypertension Chronic systolic (congestive) heart failure ICD (implantable cardioverter-defibrillator) in place HTN (hypertension) CAD (coronary artery disease) Hyperlipidemia LDL goal <70 Dyspnea Bibasilar crackles Sleep apnea Insomnia Delusion of persecution Family History Family History Father No problems noted. Mother CVD (cardiovascular disease) Surgical History Surgical History H/O inguinal hernia repair History of tooth extraction Hx of CABG (~2019) History of open heart surgery History of bilateral cataract extraction Social History Social History Household Members: Spouse Housing: Apartment Alcohol intake: former Patient Tobacco Use Status: Never used Tobacco Smoked in Last 30 Days: No e-Cigarette/Vaping Use: Never Used Second Hand Smoke Exposure: No Use of substances other than those prescribed or required for medical reasons: No Advance Directives: No Advance Directives Information Provided: No Nutrition Risks: No Nutritional Risk service: No Current occupational status: retired Cognitive needs: Yes Hearing needs: No Vision needs: Yes Meds Allergies Allergy/AdvReac Type Severity Reaction Status Date / Time Penicillins Allergy Intermediate ITCHING Verified 04/11/23 16:02 Active Medications: Current Medications Acetaminophen (Acetaminophen 325 Mg Tablet) 650 mg PO Q6H PRN PRN Reason: Pain, Mild (Pain Scale 1-3) Albuterol/Ipratropium (Albuterol/Iprat 2.5/0.5mg 3 Ml Ampul.Neb) 3 ml INHALE RQ4H WHILE AWAKE LITO Last Admin: 05/27/23 08:09 Dose: 3 ml Albuterol/Ipratropium (Albuterol/Iprat 2.5/0.5mg 3 Ml Ampul.Neb) 3 ml INHALE Q4H PRN PRN Reason: Wheezing Amlodipine Besylate (Amlodipine Besylate 5 Mg Tablet) 5 mg PO DAILY LITO; Protocol Last Admin: 05/27/23 09:59 Dose: 5 mg Aspirin (Aspirin Enteric Coated 81 Mg Tablet.Dr) 81 mg PO DAILY LITO Last Admin: 05/27/23 09:59 Dose: 81 mg Dextrose (Dextrose 50 % 25 Gm/50 Ml Syringe) 25 gm IVPUSH Q15M PRN; Protocol PRN Reason: per Hypoglycemia Standing Ord. Enoxaparin Sodium (Enoxaparin Sodium 40 Mg/0.4 Ml Syringe) 40 mg SUBCUT Q24H LITO Last Admin: 05/27/23 06:36 Dose: 40 mg Famotidine (Famotidine 20 Mg Tablet) 20 mg PO BEDTIME [facility] Folic Acid (Folic Acid 1 Mg Tablet) 1 mg PO DAILY [facility] Last Admin: 05/27/23 09:59 Dose: 1 mg Furosemide (Furosemide 100 Mg/10 Ml Vial) 60 mg IVPUSH DAILY [facility]; Protocol Last Admin: 05/27/23 07:45 Dose: 60 mg Gabapentin (Gabapentin 100 Mg Capsule) 100 mg PO BEDTIME [facility] Glucose (Glucose Gel 15 Gm Gel..Gram.) 15 gm PO Q15M PRN; Protocol PRN Reason: per Hypoglycemia Standing Ord. Insulin Glargine (Insulin Glargine,Hum.Rec.Anlog 100 Unit/Ml 10 Ml Vial) 52 unit SUBCUT DAILY [facility] Last Admin: 05/27/23 09:59 Dose: 52 unit Insulin Human Lispro (Insulin Lispro 100 Unit/Ml 3 Ml Vial) 0 unit SUBCUT QIDACHS [facility]; Protocol Last Admin: 05/27/23 07:38 Dose: Not Given Levothyroxine Sodium (Levothyroxine Sodium 50 Mcg Tablet) 50 mcg PO DAILY@0630 [facility] Last Admin: 05/27/23 09:59 Dose: 50 mcg Losartan Potassium (Losartan Potassium 25 Mg Tablet) 25 mg PO DAILY [facility]; Protocol Last Admin: 05/27/23 09:59 Dose: 25 mg Meclizine HCl (Meclizine Hcl 12.5 Mg Tablet) 12.5 mg PO Q12H PRN PRN Reason: for dizziness Melatonin (Melatonin 3 Mg Tablet) 6 mg PO BEDTIME PRN PRN Reason: Insomnia Metformin HCl (Metformin Hcl 1,000 Mg Tablet) 1,000 mg PO BID [facility] Last Admin: 05/27/23 09:59 Dose: 1,000 mg Metoprolol Succinate (Metoprolol Succinate Er 100 Mg Tab.Er.24h) 100 mg PO DAILY [facility]; Protocol Last Admin: 05/27/23 09:59 Dose: 100 mg Ondansetron HCl (Ondansetron Hcl 4 Mg/2 Ml Vial) 4 mg IVPUSH Q8H PRN PRN Reason: Nausea and Vomiting Pramipexole Dihydrochloride (Pramipexole Di-Hcl 0.25 Mg Tablet) 0.5 mg PO DAILY [facility] Sodium Chloride (0.9 % Sodium Chloride Flush 3 Ml Syringe) 3 ml IVFLUSH QSHIFT [facility] Last Admin: 05/27/23 07:45 Dose: 3 ml Trazodone HCl (Trazodone Hcl 50 Mg Tablet) 50 mg PO BEDTIME [facility] Vitamin D (Cholecalciferol (Vitamin D3) 25 Mcg Tablet) 50 mcg PO DAILY [facility] Last Admin: 05/27/23 09:59 Dose: 50 mcg Home Medications Medication Instructions Recorded Confirmed Last Taken Type levothyroxine 50 mcg tablet 50 mcg PO DAILY 05/27/23 05/27/23 Unknown History trazodone 50 mg tablet 50 mg PO BEDTIME 05/27/23 05/27/23 Unknown History Physical Exam 2 Vital Signs: Vital Signs: Last Vital Signs Temp 97.7 F 05/27/23 05:41 Pulse 76 05/27/23 09:58 Resp 18 05/27/23 09:58 BP 139/86 05/27/23 09:58 Pulse Ox 94 05/27/23 05:41 O2 Del Method Room Air 05/27/23 09:58 O2 Flow Rate 1 05/27/23 05:41 BMI result Body Mass Index 34.3 Const: General: cooperative, comfortable, alert, awake and in distress mild and respiratory Nutritional Appearance: obese HEENT: Head: Yes normocephalic and Yes atraumatic Neck: Neck: Yes trachea midline, Yes supple and Yes other (Difficult to assess JVD due to body habitus) Resp: Effort & Inspection: decreased respiratory effort Auscultation: clear to auscultation bilaterally Cardio: Rate: regular rate Rhythm: regular rhythm Heart sounds: S1 normal heart sound present, S2 normal heart sound present, no click, no gallops, no murmurs and no rubs GI: Inspection: Yes obesity Auscultation: normal bowel sounds Skin: General skin exam: no rashes or lesions noted Neuro: General: no focal motor deficits Extrem: General: Yes no clubbing, cyanosis or edema Objective Labs and Meds 05/27/23 05:15 05/27/23 05:15 Lab results: Laboratory Results - last 24 hr 05/26/23 05/26/23 05/27/23 23:43 23:48 05:15 WBC 10.4 10.4 RBC 4.45 L 4.57 L Hgb 13.1 L 13.5 L Hct 40.6 L 41.5 L MCV 91.2 90.8 MCH 29.4 29.5 MCHC 32.3 32.5 RDW 14.4 14.4 Plt Count 210 221 MPV 9.5 9.9 Immature Gran % (Auto) 0.3 0.4 Neut % (Auto) 61.8 63.6 Lymph % (Auto) 20.6 20.3 [place] % (Auto) 13.6 H 12.1 H Eos % (Auto) 3.3 3.1 Baso % (Auto) 0.4 0.5 Lymph # (Auto) 2.1 2.1 [place] # (Auto) 1.4 H 1.3 H Eos # (Auto) 0.3 0.3 Baso # (Auto) 0.0 0.1 Abs Immat Gran (auto) 0.03 0.04 H Absolute Neuts (auto) 6.4 6.6 Absolute Nucleated RBC 0.000 0.000 Nucleated RBC % (auto) 0.0 0.0 PT 11.0 L INR 0.9 VBG pH 7.36 VBG pCO2 53 VBG pO2 43 VBG HCO3 30 H VBG O2 Saturation 67.0 VBG Base Excess 3.7 Sodium 141 143 Potassium 4.5 3.9 Chloride 106 105 Carbon Dioxide 25 26 Anion Gap 15 16 BUN 33 H 30 H Creatinine 1.94 H 1.78 H Estim Creat Clear Calc 33.9 36.9 Estimated GFR 34 38 POC Glucose Random Glucose 195 H 103 Calcium 9.7 10.1 Magnesium 2.0 Total Bilirubin 0.3 Direct Bilirubin 0.2 AST 22 ALT 25 Alkaline Phosphatase 69 Troponin I High Sens 6.5 B-Natriuretic Peptide 138 H Total Protein 7.4 Albumin 3.7 COVID-19 ([facility]) Negative COVID-19 Clin Com See Note 05/27/23 07:15 WBC RBC Hgb Hct MCV MCH MCHC RDW Plt Count MPV Immature Gran % (Auto) Neut % (Auto) Lymph % (Auto) [place] % (Auto) Eos % (Auto) Baso % (Auto) Lymph # (Auto) [place] # (Auto) Eos # (Auto) Baso # (Auto) Abs Immat Gran (auto) Absolute Neuts (auto) Absolute Nucleated RBC Nucleated RBC % (auto) PT INR VBG pH VBG pCO2 VBG pO2 VBG HCO3 VBG O2 Saturation VBG Base Excess Sodium Potassium Chloride Carbon Dioxide Anion Gap BUN Creatinine Estim Creat Clear Calc Estimated GFR POC Glucose 100 Random Glucose Calcium Magnesium Total Bilirubin Direct Bilirubin AST ALT Alkaline Phosphatase Troponin I High Sens B-Natriuretic Peptide Total Protein Albumin COVID-19 ([facility]) COVID-19 Clin Com Imaging Radiologist's impression: Impressions Chest X-Ray 05/26/23 23:36 IMPRESSION: 1. Stable elevation the right hemidiaphragm. 2. Bilateral low lung volumes. 3. Accentuation of the pulmonary vasculature. 4. Sternotomy wires with multiple fractures of the first cranial two wires. Chest CT 05/27/23 00:40 IMPRESSION: No new suspicious findings identified in the chest. Mild bronchial wall thickening redemonstrated, which can be seen with acute or chronic bronchitis. Assessment and Plan (1) Acute decompensated heart failure: Status: Acute Acute decompensated congestive heart failure in patient with maintain LVEF of 48% secondary noncompliance with medical therapy as well as other recommendations. History was obtained with help of fisher quahog and had a very long discussion with him about his high risk behavior and poor prognosis with noncompliance. Recommend him to continue medical therapy and take medicines as prescribed. Will continue IV Lasix for 1 more day. Follow-up BMP and BNP tomorrow. Importance of CPAP therapy was discussed. He showed understanding and agreement. No other change in therapy. Continue all other medical management including his antihypertensive therapy. If better by tomorrow can potentially discharge him. Will sign of the case and follow-up as outpatient Time Spent With Patient Time: Total time managing care of this patient today ____ minutes. Procedures Date of Service Date of Service: 05/27/23
[2023-05-27 11:42] LABS: Glucose, Whole Blood 297 mg/dL (60-115)
[2023-05-27] MEDS: Insulin Lispro 100 UNIT/ML 3 ML VIAL SUBCUT ×3 (12:59→21:01)
--- NOTE | 2023-05-27 13:05 | PC.NURSE ---
called pharmacy at 11am for mirapex still waiting for med. Will call again.
[2023-05-27] MEDS: Pramipexole Di-HCL 0.25 MG TABLET 0.5 MG PO (13:14)
[2023-05-27 16:30] LABS: Glucose, Whole Blood 306 mg/dL (60-115)
--- NOTE | 2023-05-27 19:33 | PC.NURSE ---
assumed care of pt at this time.
--- NOTE | 2023-05-27 19:56 | PC.NURSE ---
pt repositioned in stretcher. ate 100% of breakfast; 240mL liquid intake as documented. no UO at this time. vss. sats 93% RA. pt denies questions/concerns. respiratory to bedside for breathing tx. at bedside. awaiting bed assignment. call dixon within reach.
[2023-05-27 20:36] LABS: Glucose, Whole Blood 327 mg/dL (60-115)
[2023-05-27] MEDS: Famotidine 20 MG TABLET PO (21:02)
[2023-05-27] MEDS: traZODone HCL 50 MG TABLET PO (21:02)
[2023-05-27] MEDS: Gabapentin 100 MG CAPSULE PO (21:02)
--- NOTE | 2023-05-27 21:06 | PC.NURSE ---
poc 327; insulin administered per sliding scale. bedtime meds given per oct. lung sounds cta. pt requests lights off curtain closed stating he'd like to get some sleep. call dixon within reach.
[2023-05-28] MEDS: 0.9 % Sodium Chloride Flush 3 ML SYRINGE IVFLUSH ×2 (02:37→07:59)
--- NOTE | 2023-05-28 04:33 | PC.NURSE ---
pt sleeping in stretcher. respirations even and unlabored. call dixon within reach.
[2023-05-28 05:48] LABS: Anion Gap 16 (12-20); Blood Urea Nitrogen 35 mg/dL (9-16); Calcium 9.8 mg/dL (8.4-10.2); Carbon Dioxide 27 mmol/L (22-29); Chloride 102 mmol/L (96-108); Creatinine Clr Calc Pharmacy 40.3; Estimated Glomerular Filt Rate 42; Glucose Random 121 mg/dL (60-115); Sodium 141 mmol/L (135-145)
[2023-05-28 05:52] LABS: B Type Natriuretic Peptide 56 pg/mL (<100)
[2023-05-28 06:26] VITALS: BP 136/66; PULSE 80; RESP 21; O2SAT 94
[2023-05-28] MEDS: Enoxaparin Sodium 40 MG/0.4 ML SYRINGE SUBCUT (06:36)
--- NOTE | 2023-05-28 06:39 | PC.NURSE ---
pt refused levothyroxine as stated his pcp discontinued med. Dr. George villafuerte.
[2023-05-28] MEDS: Albuterol/Iprat 2.5/0.5MG 3 ML AMPUL.NEB INHALE ×2 (07:27→10:51)
[2023-05-28 07:28] LABS: Glucose, Whole Blood 109 mg/dL (60-115)
[2023-05-28 07:29] VITALS: PULSE 64; RESP 19; O2SAT 96
[2023-05-28 07:59] VITALS: BP 125/58; PULSE 78; RESP 18; O2SAT 91
--- NOTE | 2023-05-28 08:11 | PC.NURSE ---
spoke with pt using medical records tech. pt reports feeling much better compared to yesterday . pt reports sleeping well, reports some pain in the L side of his neck I slept bad the other night . pt resting in bed, NAD, skin PWD at this time he has no complains. needs are met.
--- NOTE | 2023-05-28 09:25 | W.MHC.F2F ---
Service Date Service Date: 05/28/23 Encounter Date of encounter: 05/28/23 Reasons for Services Signs and symptoms assessed: HFpEF acute exacerbation non adherent to home medications Reason for residential: CV/CP assess and/or care, diabetic teaching and medication management Homebound: Leaving the home is medically contraindicated at this time without the asist of a device and/or another person due th the listed conditions above and below. Reason homebound: unsteady gait / fall risk Certification: Based on the above findings, I certify that this patient is confined to the home and needs intermittent residential care, physical therapy and/or speech therapy, or continues to need occupational therapy. The patient is under my care, and I have initiated the establishment of the plan of care. The patient will be followed by a physician who will periodically review the plan of care. Time Spent With Patient Time: Total time managing care of this patient today ____ minutes.
--- NOTE | 2023-05-28 09:26 | PM.DS ---
DS: Providers Provider Date of Service: 05/28/23 Date of admission: 05/27/23 02:16 Primary care physician: Sophie Fulton MD Consults: 05/27/23 08:17 Consult to Cardiology Routine Consulting Provider: [facility] Reason for consultation: CHF DS: Diagnosis Discharge Diagnosis (1) Acute decompensated heart failure: Status: Acute DS: Summary Hospital Course Hospital Course: This is a 72-year-old male with pertinent history of combined systolic and diastolic congestive heart failure, insulin-dependent diabetes mellitus, essential hypertension, COPD not on home oxygen, ROE not compliant with CPAP who presents to the emergency department for evaluation of dyspnea. Patient states she started having symptoms about 3 weeks prior to presentation. His dyspnea is worse with ambulation. Also has associated orthopnea and bilateral leg swelling. States he stopped taking his Lasix about 3 weeks prior to presentation as it would bother him and cause him to pee a lot. He denies wheezing or cough. No fever, chills, chest discomfort, palpitations, abdominal pain, changes in urinary or bowel habits. In the emergency department, patient was requiring supplemental oxygen. 72-year-old man treated for acute congestive heart failure with history of heart failure with preserved ejection fraction. Treated with IV Lasix. Seen evaluated by Cardiology felt that the patient was mildly fluid overloaded. Likely related to patient's non adherence to medications and indulgence in non diabetic foods and candy. Discussed in depth with patient the importance of medication adherence avoid acute exacerbations. Patient and his are in agreement that he will take his medications on a daily basis. He was also encouraged to make sure to check his blood sugars 3 times a day and take his insulin. Patient to do daily weights and if noted 3-5 lb weight gain in 24 hours contact master cook. Lasix prescription refilled sent to patient's pharmacy. ROE CPAP at bedtime Insulin-dependent diabetes mellitus 2 with hyperglycemia. Home medications Essential hypertension Continue home antihypertensives COPD No exacerbation during admission. Continue home inhalers Mixed hyperlipidemia On statin Time Spent with Patient Time attestation: Total time managing care of this patient today ____ minutes. Discharge coordination time: Greater than 30 minutes Quality: Safe Use of Opioids Does Pt have an Active Cancer Diagnosis on the Problem List?: No Quality: Stroke Does the patient have a stroke diagnosis?: No Physical Exam Vital Signs: Vital Signs: Last Vital Signs Temp 97.7 F 05/27/23 05:41 Pulse 78 05/28/23 07:59 Resp 18 05/28/23 07:59 BP 125/58 L 05/28/23 07:59 Pulse Ox 91 L 05/28/23 07:59 O2 Del Method Room Air 05/28/23 07:59 O2 Flow Rate 1 05/27/23 05:41 BMI result Body Mass Index 34.3 Appearing in no acute distress head is normocephalic atraumatic eyes pupils are PERRLA sclera is anicteric mouth throat mucous membranes are intact and moist neck is supple no lymphadenopathy, no JVD noted lung sounds are clear to auscultation heart regular rate rhythm, clear S1, S2 , mild bilateral lower extremity edema positive bowel sounds, abdomen is soft, nontender neuro patient is alert x3, no focal deficits DS: Data Data Completed and Pending Labs on day of discharge: Laboratory Results - last 24 hr 05/27/23 05/27/23 05/27/23 11:38 16:21 20:32 Sodium Potassium Chloride Carbon Dioxide Anion Gap BUN Creatinine Estim Creat Clear Calc Estimated GFR POC Glucose 297 H 306 H 327 H Random Glucose Calcium B-Natriuretic Peptide 05/28/23 05/28/23 05:14 07:24 Sodium 141 Potassium 4.0 Chloride 102 Carbon Dioxide 27 Anion Gap 16 BUN 35 H Creatinine 1.63 H Estim Creat Clear Calc 40.3 Estimated GFR 42 POC Glucose 109 Random Glucose 121 H Calcium 9.8 B-Natriuretic Peptide 56 Discharge Plan Discharge Anticipated Discharge Date/Time: 05/28/23 09:20 Patient Disposition: Home Health Service Discharge Diagnosis: HFpEF acute exacerbation Referrals: [facility] [Outside] - 1 Week Sophie Enrique MD [Primary Care Provider] - 1 Week Discharge Medications: Continued (DME) blood-glucose meter [FreeStyle Lite Meter] Kit See Rx Instructions .ROUTE .MEDSUPPLY Qty: 1 0RF Rx Instructions: As directed (DME) FreeStyle Manjit 14 Day Sensor Kit See Rx Instructions .Route Qty: 2 11RF Rx Instructions: As directed every 14 days folic acid 1 mg tablet 1 mg PO DAILY 90 Days Qty: 90 0RF galantamine 8 mg capsule,ext rel. pellets 24 hr 8 mg PO QAM Qty: 90 1RF (DME) FreeStyle Lite Strips Strip See Rx Instructions .Route Qty: 100 11RF Rx Instructions: As directed 4 times a day aspirin [Enteric Coated Aspirin] 81 mg tablet,delayed release (DR/EC) 81 mg PO DAILY Qty: 90 0RF metoprolol succinate 100 mg tablet extended release 24 hr 100 mg PO DAILY Qty: 90 0RF (DME) pen needle, diabetic 32 gauge x 5/32 needle See Rx Instructions subcut .MEDSUPPLY Qty: 50 0RF Rx Instructions: As directed amlodipine 5 mg tablet 5 mg PO DAILY Qty: 90 0RF albuterol sulfate [Ventolin HFA] 90 mcg/actuation HFA aerosol inhaler 2 puff PO Q6H PRN (Reason: for wheezing) Qty: 18 5RF losartan 25 mg tablet 25 mg PO DAILY 90 Days Qty: 90 0RF trazodone 50 mg tablet 50 mg PO BEDTIME levothyroxine 50 mcg tablet 50 mcg PO DAILY furosemide 40 mg tablet 40 mg PO DAILY 90 Days Qty: 90 1RF cholecalciferol (vitamin D3) 50 mcg (2,000 unit) capsule 50 mcg PO DAILY 90 Days Qty: 90 1RF insulin aspart U-100 [Novolog FlexPen U-100 Insulin] 100 unit/mL (3 mL) insulin pen 20 unit subcut QID 30 Days Qty: 24 6RF Trulicity 4.5 mg/0.5 mL pen injector 4.5 mg subcut QWEEK 90 Days Qty: 6.5 3RF famotidine 20 mg tablet 20 mg PO BEDTIME 90 Days Qty: 90 1RF gabapentin 100 mg capsule 100 mg PO BEDTIME 30 Days Qty: 30 3RF meclizine 12.5 mg tablet 12.5 mg PO Q12H PRN (Reason: for dizziness) Qty: 30 0RF pramipexole 0.5 mg tablet 0.5 mg PO DAILY Qty: 90 0RF metformin 1,000 mg tablet 1,000 mg PO BID 90 Days Qty: 180 1RF Toujeo Max U-300 SoloStar 300 unit/mL (3 mL) insulin pen 65 unit subcut DAILY 90 Days Qty: 19.503 3RF rosuvastatin 40 mg tablet 40 mg PO DAILY Qty: 90 1RF Discharge Orders: Discharge Order (Routine); Ordered 05/28/23 Ordered By: Ct Calderón Diet: Advance to usual diet Activity on Discharge: As tolerated Stand Alone Forms: Patient Portal Discharge page Care Plan Goals: Monitor weight daily and report a 3-5 lb weight gain in one day to master cook Health Concerns: HFpEF acute exacerbation Plan of Treatment: Follow up with crdiologist as needed Take all medications as prescribed Avoid high sodium foods, canned foods, deli foods Monitor your blood sugar closely and avoid high sugar content foods Assessment: See discharge summary Discharge Date/Time: 05/28/23 11:07
--- NOTE | 2023-05-28 09:56 | MHC.CM.PN ---
Received notification from Ct CHUN that patient will be d/c'd home today and will need shelter. Patient is active with [facility]. T/W spoke with Angely at [facility]. They will authorize [facility]. Referral made via [facility]. They will accept patient. Met with patient, Teresa and son Daryl. Patient and are primarily Setswana speaking but are declining an control systems engineer at this time. All are aware and agreeable that patient will be d/c'd home with VNA. Daryl will transport patient home. Continue to monitor for d/c needs.
[2023-05-28] MEDS: Folic Acid 1 MG TABLET PO (10:51)
[2023-05-28] MEDS: Metoprolol Succinate ER 100 MG TAB.ER.24H PO (10:51)
[2023-05-28] MEDS: amLODIPine Besylate 5 MG TABLET PO (10:52)
[2023-05-28] MEDS: Cholecalciferol (Vitamin D3) 25 MCG TABLET 50 MCG PO (10:52)
[2023-05-28] MEDS: Losartan Potassium 25 MG TABLET PO (10:52)
[2023-05-28] MEDS: Aspirin Enteric Coated 81 MG TABLET.DR PO (10:53)
[2023-05-28] MEDS: Furosemide 100 MG/10 ML VIAL 60 MG IVPUSH (10:53)
[2023-05-28 10:54] VITALS: PULSE 76; RESP 18; O2SAT 95
[2023-05-28] MEDS: Insulin Glargine,Hum.rec.anlog 100 UNIT/ML 10 ML VIAL 52 UNIT SUBCUT (10:55)
== END 2023-05-28 11:07 | disposition home health service (06) | DRG 291 ==
LOC: HO.ED 05-27 01:36 → HO.EDOVER 05-27 02:19 → HO.S3 05-28 08:43 → HO.EDOVER 05-28 09:36
PROVIDERS: Admitting Provider Student in an Organized Health Care Education/Training Program; Emergency Provider Emergency Medicine; PCP Internal Medicine; Visit Provider Nurse Practitioner Acute Care
DX: I11.0 Hypertensive heart disease with heart failure (principal); I50.43 Acute on chronic combined systolic (congestive) and diastolic (congestive) heart failure; J96.01 Acute respiratory failure with hypoxia; I25.10 Atherosclerotic heart disease of native coronary artery without angina pectoris; E03.9 Hypothyroidism, unspecified; E78.2 Mixed hyperlipidemia; Z95.810 Presence of automatic (implantable) cardiac defibrillator; G47.33 Obstructive sleep apnea (adult) (pediatric); E11.42 Type 2 diabetes mellitus with diabetic polyneuropathy; E11.65 Type 2 diabetes mellitus with hyperglycemia; J44.9 Chronic obstructive pulmonary disease, unspecified; Z20.822 Contact with and (suspected) exposure to COVID-19; Z91.148 Patient's other noncompliance with medication regimen for other reason; Z79.4 Long term (current) use of insulin; Z79.82 Long term (current) use of aspirin; Z79.84 Long term (current) use of oral hypoglycemic drugs; Z79.890 Hormone replacement therapy; Z79.899 Other long term (current) drug therapy
CPT/HCPCS: 36415; 71045; 71250; 80048; 80076; 82803; 82947; 83735; 83880; 84484; 85025; 85610; 87635; 93005; 94640; 99285; J1650; J1940

== ENCOUNTER → 2023-05-27 02:16 | Outpatient (BNV) | payer OTHER, SELFPAY | PROVIDERS: Admitting Provider Student in an Organized Health Care Education/Training Program; Emergency Provider Emergency Medicine; PCP Internal Medicine; Visit Provider Internal Medicine Cardiovascular Disease | DX: I50.9 Heart failure, unspecified (principal) | CPT/HCPCS: 99222 ==

== ENCOUNTER → 2023-05-27 02:16 | Outpatient (BNV) | payer OTHER, SELFPAY | PROVIDERS: Admitting Provider Student in an Organized Health Care Education/Training Program; Emergency Provider Emergency Medicine; PCP Internal Medicine; Visit Provider Student in an Organized Health Care Education/Training Program | DX: I50.9 Heart failure, unspecified (principal) | CPT/HCPCS: 99222; 99239; 99499; G0180 ==

== ENCOUNTER 2023-06-10 14:00 | Outpatient (RCR) | payer OTHER, SELFPAY ==
[2023-05-10 14:02] VITALS: BP 124/58; PULSE 59
--- NOTE | 2023-05-10 16:08 | MHC.PT.EP ---
[facility] [place] Office [place] [facility] [place] [facility] [address] Nilesh Romero [address] [phone] F: [phone] F: [phone] F: [phone] F: [phone] Physical Therapy Plan of Care Date of Evaluation: 05/10/23 Date of Surgery: Diagnosis: lumbar pain (MD Dx) lumbar stenosis (with diabetic periph neuropathy) (PT Dx) Assessment: Patient is a pleasant, sierra leone[place] speaking, 72 y.o. male with PMHx of DMT2, HTN, CKD Stage 3 and CHF.who is referred to PT by Dr. Sophie Fulton MD with Dx of lumbar pain. PT diagnosis is likely lumbar stenosis due to presentation and age related degenerative changes. Patient impairments include poor posture, pain, limited ROM in lumbar spine and hips, antalgic gait, weakness in hips. Patient current functional limitations are prolonged standing, walking long distances, vacuuming, bending, lifting anything, stair use, poor balance, putting on shoes. Patient will benefit from skilled PT to address aforementioned impairments and functional limitations to meet established goals. Frequency and Duration: The patient will be seen 2x/week for 4 weeks Short Term Goals: 2 weeks Patient demonstrates consistency and independence with HEP to self manage symptoms. Correction Goals: 4 weeks Patient presents with increased lumbar spine flexion 70 degrees to be able to put on shoes independently. Patient presents with increased glute med strength 4+/5 to be able to stand for 15 mins to wash dishes without rest break. Treatment Plan: Modalities to reduce pain, spasms and effusion. Manual therapy to restore motion and function. Therapeutic exercise to improve strength and flexibility. Neuromuscular re-education for posture and balance. Therapeutic activities to return to functional activities of daily living. Electronically signed by: Christopher Walker, PT, DPT Please sign and return to therapist. Thank you for your referral.
--- NOTE | 2023-07-16 11:39 | MHC.PT.DC ---
[facility] New Site Office [place] Office [place] Office [address] Nilesh Romero [address] [phone] F: [phone] F: [phone] F: [phone] F: [phone] Physical Therapy Discharge Report Diagnosis: lumbar pain (MD Dx) lumbar stenosis (with diabetic periph neuropathy) (PT Dx) Date of Surgery: Date of Evaluation: 05/10/23 Date of Discharge: 07/16/23 Treatments to Date: 4 Cancellations to Date: 2 No Shows to Date: 2 Discharge Status: Patient Elected to Stop Visit Non-compliance Discharge Summary: Ed ceased attending PT on his own accord. His last PT visit on 06/06/23 the assessment reads, Pt reports 3/10 pain at end of session, the exercises are helping and he has been working on them at home. Pt trialed on stepper for 5 mins with no adverse effect, requested to use his home stationary bike and was encouraged to begin slowly and 5 minutes at a time d/t cardiac hx. Electronically signed by: Christopher Walker, PT, DPT Please sign and return to therapist. Thank you for your referral.
== END 2023-07-16 11:41 | disposition home or self-care (01) ==
LOC: HO.PT 14:00
PROVIDERS: PCP Internal Medicine; Visit Provider Internal Medicine
DX: M54.50 Low back pain, unspecified (principal)
CPT/HCPCS: 97110; 97163

== ENCOUNTER 2023-06-18 13:02 | Outpatient (AMB) | payer OTHER, SELFPAY ==
--- NOTE | 2023-06-18 14:39 | A.OFFVIS_ITS ---
Intake Vital Signs 06/18/23 14:40 Height 5 ft 4 in Weight 212 lb 15.465 oz BMI 36.6 BP 120/62 Blood Pressure Location Lt brachial Position Sitting Pulse 73 Pulse Source Pulse Oximeter Intake Visit Reasons: Hospital follow up Mechanical Adjuster Required: Yes Mechanical Adjuster Language: Glue Spreading Machine Operator Name: fausto carlos [id number] Food Counter Attendant: Food Counter Attendant Present Accompanied by: Significant Other Allergies Penicillins Allergy (Intermediate, Verified 06/18/23 14:43) ITCHING Medication List - Last Reconciled 06/18/23 by SYMONE Albarran amlodipine 5 mg PO DAILY aspirin (Enteric Coated Aspirin) 81 mg PO DAILY blood sugar diagnostic (FreeStyle Lite Strips) As directed 4 times a day blood-glucose meter (FreeStyle Lite Meter kit) As directed cholecalciferol (vitamin D3) 50 mcg PO DAILY 90 days dulaglutide (Trulicity) 4.5 mg (0.5 mL) subcut QWEEK 90 days famotidine 20 mg PO BEDTIME 90 days flash glucose sensor (FreeStyle Manjit 14 Day Sensor kit) As directed every 14 days furosemide 40 mg PO DAILY 90 days gabapentin 100 mg PO BEDTIME 30 days galantamine ER 8 mg PO QAM insulin aspart U-100 (Novolog FlexPen U-100 Insulin aspart) 15 units (0.15 mL) subcut QID 30 days insulin glargine U-300 conc (Toujeo Max U-300 SoloStar) 65 units (0.2167 mL) subcut DAILY 90 days losartan 25 mg PO DAILY 90 days meclizine 12.5 mg PO Q12H PRN metformin 1,000 mg PO BID 90 days metoprolol succinate ER 100 mg PO DAILY pen needle, diabetic As directed pramipexole 0.5 mg PO DAILY rosuvastatin 40 mg PO DAILY trazodone 50 mg PO BEDTIME Ventolin HFA 90 mcg/actuation (albuterol sulfate) 2 puffs PO Q6H PRN NS HPI Hospital follow up HPI Details Ed is a 73-year-old male with past medical history of hypertension, hyperlipidemia, diabetes, chronic kidney disease, obesity, coronary artery disease, coronary artery bypass grafting 2018, ischemic cardiomyopathy, chronic systolic heart failure who was recently admitted to [facility] for increased shortness of breath and leg swelling. He had stopped his Lasix 3-4 weeks prior to ER arrival due to frequent urination. He was diuresed and sent home with Lasix 40 mg daily. Today he reports he has been doing well since his hospital discharge. His breathing has improved back to normal. He has no PND, orthopnea. His leg edema is nearly resolved. No chest discomfort at rest or with activity. No heart palpitations, dizziness, presyncope, syncope, falls. No chest discomfort at rest or with activity. He is taking his meds now as directed, including Lasix. He says he is going to [place] in July for 2 weeks. Certified cork sorter used, is present. 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 Obesity due to excess calories ROE (obstructive sleep apnea) ROE on CPAP Ischemic cardiomyopathy Atherosclerotic cardiovascular disease GERD (gastroesophageal reflux disease) Hypothyroidism Type 2 diabetes mellitus with hyperglycemia, with long-term current use of insulin Type 2 diabetes mellitus with diabetic polyneuropathy Essential hypertension Chronic systolic (congestive) heart failure ICD (implantable cardioverter-defibrillator) in place HTN (hypertension) CAD (coronary artery disease) Hyperlipidemia LDL goal <70 Dyspnea Bibasilar crackles Sleep apnea Insomnia Delusion of persecution Surgical History H/O inguinal hernia repair History of tooth extraction Hx of CABG (~2019) History of open heart surgery History of bilateral cataract extraction Family History Father No problems noted. Mother CVD (cardiovascular disease) Social History Household Members: Spouse Housing: Apartment Alcohol intake: former Patient Tobacco Use Status: Never used Tobacco e-Cigarette/Vaping Use: Never Used Second Hand Smoke Exposure: No service: No Current occupational status: retired Cognitive needs: Yes Hearing needs: No Vision needs: Yes Review of Systems Const All systems reviewed & are unremarkable except as noted in HPI and below Card Reports leg edema (Improving) and Reports dyspnea on exertion Resp Reports dyspnea on exertion Physical Exam Vital Signs: Last Vital Signs Pulse 73 11/14/23 14:40 BP 120/62 06/18/23 14:40 BMI result Body Mass Index 36.6 Const General: cooperative, healthy appearing, comfortable and no acute distress Orientation/consciousness: patient oriented x3 Neck Neck: Yes normal visual inspection Resp Effort & Inspection: normal respiratory effort Auscultation: clear to auscultation bilaterally, no crackles, no rales, no rhonchi and no wheezes Cardio Jugular venous distension: no JVD Rate: regular rate Rhythm: regular rhythm Heart sounds: S1 normal heart sound present, S2 normal heart sound present, no murmurs and no rubs Neuro General: patient oriented x3 Extrem General: Yes normal to inspection and No no pedal edema Psych Appearance: grossly normal Mental Status: mental status grossly normal Speech and movement: Normal speech and movement present Office Procedures Cardiac Device Check Cardiac Device Check Details: Medtronic single lead ICD interrogation today, battery 8.5 years, VVI mode, low rate 40, VT/VF 0%, no therapies, AF 0%, V since 100%, V paced less than 0.1%, RV threshold 0.35 volts at 0.4 millisecond [id number] Cardiac Device Check, single lead implantable defibrillator Procedure code (CPT) selection complete Assessment & Plan Assessment & Plan (1) Chronic heart failure with preserved ejection fraction (HFpEF): Code(s): I50.32 - Chronic diastolic (congestive) heart failure Plan: History of chronic heart failure, ischemic cardiomyopathy. [place] [facility] [place] shortness of breath and leg swelling after stopping his Lasix. He was diuresed and sent home with Lasix 40 mg p.o. daily. Echocardiogram done 05/09/2023 showing EF 48%, mid anterior, mid anterior lateral and mid inferior lateral hypokinetic, able call anterior segment akinetic. Overall no significant change from prior. Today he reports that his breathing has normalized and leg edema nearly resolved. Labs done 05/28/2023 shows creatinine 1.63, potassium 4.0. No med changes made. Signs and symptoms of heart failure reviewed with him. Strict importance of med compliance discussed. (2) ICD (implantable cardioverter-defibrillator) in place: Comment: Medtronic single chamber Code(s): Z95.810 - Presence of automatic (implantable) cardiac defibrillator Plan: Medtronic single lead ICD in place. Interrogation done today shows device is functioning normally. He has remote monitoring in use. Next office interrogation due in 6 months. (3) CAD (coronary artery disease): Code(s): I25.10 - Atherosclerotic heart disease of augustine coronary artery without angina pectoris Plan: Stable with no reports of anginal sounding symptoms. Troponin normal during last hospital evaluation. EKGreviewed, not ischemic. Continue current med management for stable CAD. Continue aspirin, rosuvastatin with ideal LDL goal less than 70, metoprolol, losartan. Signs and symptoms of angina reviewed with him. (4) Hx of CABG: Onset Date: ~2018 Comment: in [place] Code(s): Z95.1 - Presence of aortocoronary bypass graft (5) Cardiomyopathy: Code(s): I42.9 - Cardiomyopathy, unspecified Qualifiers: Cardiomyopathy type: unspecified Qualified Code(s): I42.9 - Cardiomyopathy, unspecified Plan: Very mildly reduced EF. (6) Essential hypertension: Code(s): I10 - Essential (primary) hypertension Plan: Well controlled at present time (7) Hospital discharge follow-up: Code(s): Z09 - Encounter for follow-up examination after completed treatment for conditions other than malignant neoplasm Coding Level of Care Code Est Pt Level 4 (07949) Diagnoses Chronic heart failure with preserved ejection fraction (HFpEF) I50.32 ICD (implantable cardioverter-defibrillator) in place Z95.810 CAD (coronary artery disease) I25.10 Hx of CABG Z95.1 Cardiomyopathy, unspecified type I42.9 Cardiomyopathy type: unspecified Essential hypertension I10 Hospital discharge follow-up Z09 CPT Codes Cardiac Device Check - Cardiac Device 4: [id number] Cardiac Device Check, single lead implantable defibrillator ([id number]) Time Spent (min) 28
[2023-06-18 14:40] VITALS: BP 120/62; PULSE 73; BMI 36.6
== END 2023-06-18 15:21 | disposition home or self-care (01) ==
PROVIDERS: PCP Internal Medicine; Visit Provider Nurse Practitioner Family
DX: I50.32 Chronic diastolic (congestive) heart failure (principal); I25.10 Atherosclerotic heart disease of native coronary artery without angina pectoris; I42.9 Cardiomyopathy, unspecified; Z95.810 Presence of automatic (implantable) cardiac defibrillator; Z95.1 Presence of aortocoronary bypass graft; I10 Essential (primary) hypertension; Z09 Encounter for follow-up examination after completed treatment for conditions other than malignant neoplasm
CPT/HCPCS: 93282; 99214

== ENCOUNTER → 2023-06-18 13:02 | Outpatient (BNVA) | payer OTHER, SELFPAY | PROVIDERS: PCP Internal Medicine; Visit Provider Nurse Practitioner Family | DX: Z45.02 Encounter for adjustment and management of automatic implantable cardiac defibrillator (principal); Z09 Encounter for follow-up examination after completed treatment for conditions other than malignant neoplasm; I11.0 Hypertensive heart disease with heart failure; I50.32 Chronic diastolic (congestive) heart failure; I25.10 Atherosclerotic heart disease of native coronary artery without angina pectoris; I42.9 Cardiomyopathy, unspecified; Z95.1 Presence of aortocoronary bypass graft | CPT/HCPCS: 99212 ==

== ENCOUNTER → 2023-06-20 23:59 | Outpatient (BNV) | payer OTHER, SELFPAY ==
--- NOTE | 2023-06-23 14:03 | A.OFFVIS_ITS ---
Intake Intake Visit Reasons: Remote HF Monitoring- Medtronic Allergies Penicillins Allergy (Intermediate, Verified 06/18/23 14:43) ITCHING [facility] Medical History (Updated 06/18/23 @ 16:26 by Liz Caro, BREAKDOWN WORKER-C) Hospital discharge follow-up CHF (congestive heart failure) ROE (obstructive sleep apnea) Hypothyroidism Reactive airway disease [id number] syndrome Obesity due to excess calories ROE (obstructive sleep apnea) ROE on CPAP Ischemic cardiomyopathy Atherosclerotic cardiovascular disease GERD (gastroesophageal reflux disease) Hypothyroidism Type 2 diabetes mellitus with hyperglycemia, with long-term current use of in sulin Type 2 diabetes mellitus with diabetic polyneuropathy Essential hypertension Chronic systolic (congestive) heart failure ICD (implantable cardioverter-defibrillator) in place HTN (hypertension) CAD (coronary artery disease) Hyperlipidemia LDL goal <70 Dyspnea Bibasilar crackles Sleep apnea Insomnia Delusion of persecution Surgical History H/O inguinal hernia repair History of tooth extraction Hx of CABG (~2018) History of open heart surgery History of bilateral cataract extraction Family History Father No problems noted. Mother CVD (cardiovascular disease) Social History Household Members: Spouse Housing: Apartment Alcohol intake: former Patient Tobacco Use Status: Never used Tobacco e-Cigarette/Vaping Use: Never Used Second Hand Smoke Exposure: No service: No Current occupational status: retired Cognitive needs: Yes Hearing needs: No Vision needs: Yes Office Procedures Cardiac Device Check Cardiac Device Check Details: Date of service- 05/20/2023; based on impedance data and physiological variables, there is no evidence of worsening congestive heart failure currently - but there was a spike at the end of May. Patient activity about 2 hours per day. [id number] Cardiac Device Interrogation, cardio physiologic monitor Procedure code (CPT) selection complete Assessment & Plan Assessment & Plan (1) Chronic heart failure with preserved ejection fraction (HFpEF): Code(s): I50.32 - Chronic diastolic (congestive) heart failure Coding Level of Care Code Procedure Only Diagnoses Chronic heart failure with preserved ejection fraction (HFpEF) I50.32 CPT Codes Cardiac Device Check - Cardiac Device 15: [id number] Cardiac Device Interrogation, cardio physiologic monitor ([id number])
== END ==
PROVIDERS: PCP Internal Medicine; Visit Provider Internal Medicine
DX: I50.32 Chronic diastolic (congestive) heart failure (principal)
CPT/HCPCS: 93297

== ENCOUNTER 2023-06-24 13:58 | Outpatient (AMB) | payer OTHER, SELFPAY ==
[2023-06-24 14:02] VITALS: PULSE 75; O2SAT 93; BMI 32.9
--- NOTE | 2023-06-24 14:02 | A.OFFVIS_ITS ---
Intake Vital Signs 06/24/23 14:02 Height 5 ft 7 in Weight 210 lb BMI 32.9 Pulse 75 Pulse Source Pulse Oximeter Pulse Oximetry (%) 93 Oxygen Delivery Method Room Air Intake Visit Reasons: Obstructive sleep apnea Wafer Fab Operator Required: No Allergies Penicillins Allergy (Intermediate, Verified 06/24/23 14:03) ITCHING HPI HPI Comments History of Present Illness Details The patient is a 73-year-old gentleman with a known history of CAD status post surgery in addition to obstructive sleep apnea. His last sleep study occurred in [place] back in 2018 when he had a in-lab study demonstrating an AHI of 28 with hypoxia down to 75%. The patient is placed on CPAP in the CPAP therapy was very effective beneficial. However, the CPAP malfunction and is no longer working. The patient is been struggling with significant untreated obstructive sleep apnea. His is concerned because he stops breathing at nighttime and she needs to wake him up. He has significant snoring and also wakes him up with shortness of breath. He does have headaches at times. I am concerned because of increased cardiovascular risk. This point the patient needs to get another CPAP is set up with the [employer] company [facility]. In the meantime the patient also complains of dyspnea on exertion. Moderate ni rity. He has been deconditioned and also has gained weight. He also does likely contributing. He has had multiple spirometries demonstrating some degree of decrease in the forced vital capacity. On examination appears to have some crepitations as well as crackles. He denies any significant exposure to any fumes or toxins. 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 Denies any exposure to any mold or farm animals. 10/15/2022 the patient is here for pulmon dustin follow-up visit. He continues to have significant daytime drowsiness. His [place] score continues to be elevated 06/06/2024. He is frustrated that he cannot use CPAP. The patient does have significant cardiovascular risk factors. We had him have a repeat sleep study demonstrating severe sleep apnea with an AHI of 37 with significant hypoxia. I am concerned that he is having untreated severe sleep apnea and this could result in worse cardiovascular outcomes. The patient needs to be set up with a new DME company and get re-initiated with CPAP. Therefore will send a script to a local DME company. In the meantime he continues to use his respiratory medicine with good effect. Denies any chest tightness or wheezing. He has not had to use his rescue inhaler. No recent imaging studies to review. Will send a script to his [employer] company for a new CPAP and ultimately have him return in 3-4 months with the CPAP in order to review the results and download. 02/11/2023 the patient is here for a pulmonary follow-up visit. He has lost about 20 lb. The patient has not been using his CPAP regularly. We did review his sleep study again demonstrating severe sleep apnea. The patient understands that he needs to use the machine specially with his cardiovascular risk factors. His mask is to type rate now he does not like it. Will go ahead and request a different mask for him. I did provide him with a medium F30 mask with the hope that he can tolerated better. He is complaining of neuropathy pains in his upper and lower extremities. He had been using trazodone for sleep. But then he was prescribed gabapentin which I believe will be a better agent. Therefore he can stop the trazodone may continue the gabapentin. The patient did not bring his CPAP in. He will bring it to the next visit. From a respiratory status the patient seems to be doing well at the current respiratory regimen. He has not required any prednisone. He does not use his rescue inhaler often. 06/24/2023 the patient is here for a pulmonary follow-up visit. The patient is doing a lot better. He continues to lose weight. He has been using the CPAP now with a nasal mask. He has been tolerating it much better. I did download his machine. It appears that he is using it 83% of the time in more than 4 hours a night. The patient's set up APAP with a maximum pressure of 14 cm. Unfortunately his AHI continues be elevated close to 10. appears to be mainly apneic episodes so therefore will increase the maximum pressure to 16 cm water. The patient may need additional pressures. Still he will try this pressure And see if his effective increase it accordingly. If he continues to have an elevated AHI even at maximum PAP pressures then we need to further discuss the possibility of a BiPAP. From a respiratory status is doing well on his current medicines. He continues to monitor closely his p.o. intake and watching closely his sodium intake. He is taking care of himself and making significant lifestyle changes to improve his overall health. He is already seeing some drastic improvement with some weight loss. He was briefly admitted to the hospital an treated for CHF. [facility] Medical History (Updated 06/18/23 @ 16:26 by Liz Caro NP-C) Hospital discharge follow-up CHF (congestive heart failure) ROE (obstructive sleep apnea) Hypothyroidism Reactive airway disease [id number] syndrome Obesity due to excess calories ROE (obstructive sleep apnea) ROE on CPAP Ischemic cardiomyopathy Atherosclerotic cardiovascular disease GERD (gastroesophageal reflux disease) Hypothyroidism Type 2 diabetes mellitus with hyperglycemia, with long-term current use of insulin Type 2 diabetes mellitus with diabetic polyneuropathy Essential hypertension Chronic systolic (congestive) heart failure ICD (implantable cardioverter-defibrillator) in place HTN (hypertension) CAD (coronary artery disease) Hyperlipidemia LDL goal <70 Dyspnea Bibasilar crackles Sleep apnea Insomnia Delusion of persecution Surgical History H/O inguinal hernia repair History of tooth extraction Hx of CABG (~2019) History of open heart surgery History of bilateral cataract extraction Family History Father No problems noted. Mother CVD (cardiovascular disease) Social History Household Members: Spouse Housing: Apartment Alcohol intake: former Patient Tobacco Use Status: Never used Tobacco e-Cigarette/Vaping Use: Never Used Second Hand Smoke Exposure: No service: No Current occupational status: retired Cognitive needs: Yes Hearing needs: No Vision needs: Yes Review of Systems Const Denies daytime sleepiness, Denies snoring, Denies stops breathing during sleep and Reports weight loss Eyes Reports no additional complaints, Denies change in vision and Denies other visual disturbances Card Denies chest pain at rest, Denies chest pain with activity, Denies edema, Denies irregular heart rhythm, Denies claudication, Denies dyspnea, Denies dyspnea on exertion, Denies orthopnea, Denies paroxysmal nocturnal dyspnea and Denies slow heart rate Resp Reports cough, Denies dyspnea, Denies dyspnea on exertion and Denies snoring GI Denies abdominal pain, Denies change in bowel habits, Denies excessive flatus, Denies nausea and Denies vomiting Musc Denies abnormal gait, Denies atrophy, Denies deformity, Denies limited range of motion and Reports tingling Skin/Breast Denies bleeding lesions, Denies changing lesions and Denies rash Neuro Denies abnormal gait, Reports tingling and Reports paresthesias Physical Exam Vital Signs: Last Vital Signs Pulse 75 06/24/23 14:02 Pulse Ox 93 06/24/23 14:02 Oxygen Delivery Method Room Air 06/24/23 14:02 BMI result Body Mass Index 32.9 Const General: cooperative, comfortable and no acute distress Orientation/consciousness: patient oriented x3 HEENT Other: Unremarkable Neck Neck: Yes normal visual inspection Chest Chest palpation & inspection: normal inspection of the chest Resp Auscultation: no crackles, no wheezes and diminished lung sounds Cardio Palpation: normal PMI Heart sounds: S1 normal heart sound present, S2 normal heart sound present, no gallops, no murmurs and no rubs GI Palpation (GI): Soft to palpation Back/Spine/Pelvis Other: unremarkable Skin General skin exam: no rashes or lesions noted Neuro General: patient oriented x3 Extrem General: Yes edema (1+) Psych Mental Status: mental status grossly normal Assessment & Plan Assessment & Plan (1) Reactive airway disease: Code(s): J45.909 - Unspecified asthma, uncomplicated Qualifiers: Asthma complication type: uncomplicated Asthma persistence: persistent Asthma severity: moderate Qualified Code(s): J45.40 - Moderate persistent asthma, uncomplicated (2) ROE (obstructive sleep apnea): Code(s): G47.33 - Obstructive sleep apnea (adult) (pediatric) (3) Dyspnea: Comment: Multifactorial. No significant hypoxia Code(s): R06.00 - Dyspnea, unspecified Qualifiers: Dyspnea type: dyspnea on exertion Qualified Code(s): R06.00 - Dyspnea, unspecified (4) ROE (obstructive sleep apnea): Code(s): G47.33 - Obstructive sleep apnea (adult) (pediatric) Plan continue PAP therapy for the severe ROE disease, nasal mask works best, will adjust APAP 8-16. May need higher pressures. Needs supplies from DME: [employer] Continue short-acting beta agonist as needed Continue Symbicort twice a day stopped Gabapentin 100mg at night Diuresis as tolerated Follow-up 4-6 months with APAP Coding Level of Care Code Est Pt Level 4 (03822) Diagnoses Moderate persistent reactive airway disease without complication J45.40 Asthma complication type: uncomplicated Asthma persistence: persistent Asthma severity: moderate ROE (obstructive sleep apnea) G47.33 Dyspnea on exertion R06.00 Dyspnea type: dyspnea on exertion Time Spent (min) 16
== END 2023-06-24 14:23 | disposition home or self-care (01) ==
PROVIDERS: PCP Internal Medicine; Visit Provider Hospitalist
DX: J45.40 Moderate persistent asthma, uncomplicated (principal); G47.33 Obstructive sleep apnea (adult) (pediatric); R06.00 Dyspnea, unspecified
CPT/HCPCS: 99214

== ENCOUNTER → 2023-06-24 13:58 | Outpatient (BNVA) | payer OTHER, SELFPAY | PROVIDERS: PCP Internal Medicine; Visit Provider Hospitalist | DX: G47.33 Obstructive sleep apnea (adult) (pediatric) (principal); J45.40 Moderate persistent asthma, uncomplicated; R06.00 Dyspnea, unspecified | CPT/HCPCS: 99212 ==

== ENCOUNTER 2023-07-18 14:35 | Outpatient (AMB) | payer OTHER, SELFPAY ==
[2023-07-18 15:00] VITALS: BP 122/72; BMI 32.7
--- NOTE | 2023-07-18 15:00 | MHC.PC.OV ---
Vital Signs 07/18/23 15:00 Height 5 ft 7 in Weight 209 lb BMI 32.7 BP 122/72 Blood Pressure Location Lt brachial Position Sitting Intake Visit Reasons: 4 month f/u Intake Note: Patient here for a 4 month follow up Clinical Nursing Instructor Required: No Accompanied by: Self / Same As Patient Allergies Penicillins Allergy (Intermediate, Verified 07/18/23 15:11) ITCHING Medication List - Last Reconciled 07/18/23 by Sophie Fulton MD amlodipine 5 mg PO DAILY aspirin (Enteric Coated Aspirin) 81 mg PO DAILY blood sugar diagnostic (FreeStyle Lite Strips) As directed 4 times a day blood-glucose meter (FreeStyle Lite Meter kit) As directed cholecalciferol (vitamin D3) 50 mcg PO DAILY 90 days CPAP (CPAP Machine/Device) As directed dulaglutide (Trulicity) 4.5 mg (0.5 mL) subcut QWEEK 90 days famotidine 20 mg PO BEDTIME 90 days flash glucose sensor (P-CommerceStyle Manjit 14 Day Sensor kit) As directed every 14 days furosemide 40 mg PO DAILY 90 days gabapentin 100 mg PO BEDTIME 30 days galantamine ER 8 mg PO QAM insulin aspart U-100 (Novolog FlexPen U-100 Insulin aspart) 15 units (0.15 mL) subcut QID 30 days insulin glargine U-300 conc (Toujeo Max U-300 SoloStar) 65 units (0.2167 mL) subcut DAILY 90 days losartan 25 mg PO DAILY 90 days meclizine 12.5 mg PO Q12H PRN metformin 1,000 mg PO BID 90 days metoprolol succinate ER 100 mg PO DAILY pen needle, diabetic 4 times a day As directed pramipexole 0.5 mg PO DAILY rosuvastatin 40 mg PO DAILY trazodone 50 mg PO BEDTIME Ventolin HFA 90 mcg/actuation (albuterol sulfate) 2 puffs PO Q6H PRN NS Tobacco use date assessed: 11/01/22 Fall risk assessment: No Falls in past year Last assessed Fall Risk: 07/18/23 Dental Screening Dental Screen Date: 07/18/23 Did you have a dental visit in the last 12 months?: Yes Did you have a dental problem in the last 6 months where you did not have access to dental care?: No Was dental information given to patient?: Patient has dentist HPI HPI Comments History of Present Illness Details This is a 73-year-old male with diabetes mellitus type 2 on long-term current use of insulin with hyperglycemia, chronic kidney disease stage 3, chronic systolic congestive heart failure, hypertension and hyperlipidemia that comes today for follow-up on his conditions. A1c not on goal and I will increase short-acting insulin from 15 units to 20 units 3 times a day. His GFR has been stable and was told to avoid NSAIDs and keep blood pressure less than 130/80. Blood pressure stable. Lipid panel will be order and his LDL goal should be less than 70. Has not gain 5 lb in a week. Last echocardiogram shows ejection fraction of 48% and this is follow by cardiology. No leg swelling. [facility] Medical History (Updated 07/18/23 @ 15:50 by Sophie Fulton MD) Hospital discharge follow-up CHF (congestive heart failure) ROE (obstructive sleep apnea) Hypothyroidism Reactive airway disease [id number] syndrome Obesity due to excess calories ROE (obstructive sleep apnea) ROE on CPAP Ischemic cardiomyopathy Atherosclerotic cardiovascular disease GERD (gastroesophageal reflux disease) Hypothyroidism Type 2 diabetes mellitus with hyperglycemia, with long-term current use of insulin Type 2 diabetes mellitus with diabetic polyneuropathy Essential hypertension Chronic systolic (congestive) heart failure ICD (implantable cardioverter-defibrillator) in place HTN (hypertension) CAD (coronary artery disease) Hyperlipidemia LDL goal <70 Dyspnea Bibasilar crackles Sleep apnea Insomnia Delusion of persecution Surgical History H/O inguinal hernia repair History of tooth extraction Hx of CABG (~2019) History of open heart surgery History of bilateral cataract extraction Family History Father No problems noted. Mother CVD (cardiovascular disease) Social History Household Members: Spouse Housing: Apartment Alcohol intake: former Patient Tobacco Use Status: Never used Tobacco e-Cigarette/Vaping Use: Never Used Second Hand Smoke Exposure: No service: No Current occupational status: retired Cognitive needs: Yes Hearing needs: No Vision needs: Yes Questionnaire Thrive Questionnaire Date Thrive assessed: 05/27/23 RENNY-7 AMB Questionnaire RENNY-7 Date RENNY - 7 assessed: 11/01/22 Source: Developed by Drs. Godwin Street, Luisa Carlin, Lawrence Escamilla and colleagues, with an educational sonia from [employer]. Review of Systems Const All systems reviewed & are unremarkable except as noted in HPI and below Eyes Reports no additional complaints, Denies change in vision and Denies other visual disturbances Card Denies chest pain at rest, Denies chest pain with activity, Denies edema, Denies irregular heart rhythm, Denies claudication, Denies dyspnea, Denies dyspnea on exertion, Denies orthopnea, Denies paroxysmal nocturnal dyspnea and Denies slow heart rate Resp Denies cough, Denies dyspnea and Denies dyspnea on exertion GI Denies abdominal pain, Denies change in bowel habits, Denies excessive flatus, Denies nausea and Denies vomiting Denies urinary hesitancy, Denies urinary incontinence and Denies urinary urgency Musc Denies abnormal gait, Denies atrophy, Denies deformity and Denies limited range of motion Skin/Breast Denies bleeding lesions, Denies changing lesions and Denies rash Neuro Denies abnormal gait, Denies behavioral changes and Denies lack of coordination Psych Denies behavioral changes Physical exam (Primary Care) Vital Signs: Last Vital Signs BP 122/72 07/18/23 15:00 BMI result Body Mass Index 32.7 Tobacco/Smoking Status: Tobacco use Status Tobacco use date assessed 11/01/22 07/18/23 15:07 Patient Tobacco Use Status Never used Tobacco 07/18/23 15:07 e-Cigarette/Vaping Use Never Used 07/18/23 15:07 Thrive Assessment: Date of Thrive Assessment Date Thrive assessed 05/27/23 07/18/23 15:07 Eyes General: appearance normal, both eyes and all related structures Eyelids: Yes eyelids normal Conjunctivae: conjunctivae normal Neck Neck: Yes normal visual inspection and Yes supple Resp Effort & Inspection: normal respiratory effort Auscultation: clear to auscultation bilaterally Cardio Jugular venous distension: no JVD Rate: regular rate Rhythm: regular rhythm Heart sounds: S1 normal heart sound present and S2 normal heart sound present Extrem General: Yes full ROM Results AMB Hemoglobin A1c AMB Hemoglobin A1c 9.5 % Last Edit by OREN Escobar on 07/18/23 15:10 Results Reviewed Results Reviewed: Laboratory Last Values Hgb A1c (Clinic) 9.5 % (4.0-6.0) H 07/18/23 15:08 Assessment and Plan Assessment & Plan (1) CKD (chronic kidney disease) stage 3, GFR 30-59 ml/min: Code(s): N18.30 - Chronic kidney disease, stage 3 unspecified Qualifiers: Chronic kidney disease stage 3 subtype: stage 3b (GFR 30-44) Qualified Code(s): N18.32 - Chronic kidney disease, stage 3b Plan: Avoid NSAIDs. Keep blood pressure less than 130/80. (2) Essential hypertension: Code(s): I10 - Essential (primary) hypertension Plan: Continue losartan. Blood pressure goal is equal or less than 130/80. (3) Hyperlipidemia LDL goal <70: Code(s): E78.5 - Hyperlipidemia, unspecified Plan: Continue statins. Repeat lipid panel. LDL goal is less than 70. (4) Type 2 diabetes mellitus with hyperglycemia, with long-term current use of insulin: Code(s): E11.65 - Type 2 diabetes mellitus with hyperglycemia; Z79.4 - exterminator termite (current) use of insulin Plan: Continue Trulicity and metformin. Continue long-acting insulin. Increase short-acting insulin. Follow-up with endocrinology. A1c goal is equal or less than 7%. (5) Chronic systolic (congestive) heart failure: Code(s): I50.22 - Chronic systolic (congestive) heart failure Plan: Use diuretics as needed. The goal is to not gain 5 lb in a week. Orders: Orders Microalbumin, Random (w Creat) 4 Months E11.9 - Type 2 diabetes mellitus without complications Thyroid Stimulating Hormone 4 Months E03.9 - Hypothyroidism, unspecified AMB Hemoglobin A1c Today E11.65 - Type 2 diabetes mellitus with hyperglycemia, Z79.4 - exterminator termite (current) use of insulin Lipid Panel 4 Months E78.5 - Hyperlipidemia, unspecified Vitamin D 25-OH Total 4 Months E55.9 - Vitamin D deficiency, unspecified Comprehensive [place]. Panel Fast 4 Months N18.30 - Chronic kidney disease, stage 3 unspecified NT-proBNP 4 Months I50.32 - Chronic diastolic (congestive) heart failure Medications: New pen needle, diabetic 4 times a day As directed 120 ea 3RF Changed From insulin aspart U-100 (Novolog FlexPen U-100 Insulin aspart) 15 units (0.15 mL) subcut QID 30 days 18 mL 6RF E11.42 - Type 2 diabetes mellitus with diabetic polyneuropathy To insulin aspart U-100 (Novolog FlexPen U-100 Insulin aspart) 20 units (0.2 mL) subcut QID 30 days 24 mL 6RF E11.42 - Type 2 diabetes mellitus with diabetic polyneuropathy Coding Level of Care Code Est Pt Level 4 (99081) Diagnoses Stage 3b chronic kidney disease N18.32 Chronic kidney disease stage 3 subtype: stage 3b (GFR 30-44) Essential hypertension I10 Hyperlipidemia LDL goal <70 E78.5 Type 2 diabetes mellitus with hyperglycemia, with long-term current use of insulin E11.65; Z79.4 Chronic systolic (congestive) heart failure I50.22 Time Spent (min) 24
== END 2023-07-18 15:22 | disposition home or self-care (01) ==
PROVIDERS: PCP Internal Medicine; Visit Provider Internal Medicine
DX: I13.0 Hypertensive heart and chronic kidney disease with heart failure and stage 1 through stage 4 chronic kidney disease, or unspecified chronic kidney disease (principal); I50.22 Chronic systolic (congestive) heart failure; N18.32 Chronic kidney disease, stage 3b; E11.65 Type 2 diabetes mellitus with hyperglycemia
CPT/HCPCS: 83036; 99214

== ENCOUNTER → 2023-07-21 23:59 | Outpatient (BNV) | payer OTHER, SELFPAY ==
--- NOTE | 2023-07-25 12:46 | A.OFFVIS_ITS ---
Intake Intake Visit Reasons: Remote HF Monitoring- [employer] Allergies Penicillins Allergy (Intermediate, Verified 07/18/23 15:11) ITCHING PFSH Medical History Hospital discharge follow-up CHF (congestive heart failure) ROE (obstructive sleep apnea) Hypothyroidism Reactive airway disease [id number] syndrome Obesity due to excess calories ROE (obstructive sleep apnea) ORE on CPAP Ischemic cardiomyopathy Atherosclerotic cardiovascular disease GERD (gastroesophageal reflux disease) Hypothyroidism Type 2 diabetes mellitus with hyperglycemia, with long-term current use of i nsulin Type 2 diabetes mellitus with diabetic polyneuropathy Essential hypertension Chronic systolic (congestive) heart failure ICD (implantable cardioverter-defibrillator) in place HTN (hypertension) CAD (coronary artery disease) Hyperlipidemia LDL goal <70 Dyspnea Bibasilar crackles Sleep apnea Insomnia Delusion of persecution Surgical History H/O inguinal hernia repair History of tooth extraction Hx of CABG (~2019) History of open heart surgery History of bilateral cataract extraction Family History Father No problems noted. Mother CVD (cardiovascular disease) Social History Household Members: Spouse Housing: Apartment Alcohol intake: former Patient Tobacco Use Status: Never used Tobacco e-Cigarette/Vaping Use: Never Used Second Hand Smoke Exposure: No service: No Current occupational status: retired Cognitive needs: Yes Hearing needs: No Vision needs: Yes Office Procedures Cardiac Device Check Cardiac Device Check Details: Date of service- 07/21/2023; based on impedance data and physiological variables, there is no evidence of worsening congestive heart failure. Patient activity about 2 hours/day. [id number] Cardiac Device Interrogation, cardio physiologic monitor Procedure code (CPT) selection complete Assessment & Plan Assessment & Plan (1) Ischemic cardiomyopathy: Code(s): I25.5 - Ischemic cardiomyopathy Plan x Coding Level of Care Code Procedure Only Diagnoses Ischemic cardiomyopathy I25.5 CPT Codes Cardiac Device Check - Cardiac Device 15: [id number] Cardiac Device Interrogation, cardio physiologic monitor ([id number])
== END ==
PROVIDERS: PCP Internal Medicine; Visit Provider Internal Medicine
DX: I25.5 Ischemic cardiomyopathy (principal); Z95.810 Presence of automatic (implantable) cardiac defibrillator
CPT/HCPCS: 93297

== ENCOUNTER → 2023-10-22 23:59 | Outpatient (BNV) | payer OTHER, SELFPAY ==
--- NOTE | 2023-10-27 18:48 | A.OFFVIS_ITS ---
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 Obesity due to excess calories ROE (obstructive sleep apnea) ROE on CPAP Ischemic cardiomyopathy Atherosclerotic cardiovascular disease GERD (gastroesophageal reflux disease) Hypothyroidism Type 2 diabetes mellitus with hyperglycemia, with long-term current use of i nsulin Type 2 diabetes mellitus with diabetic polyneuropathy Essential hypertension Chronic systolic (congestive) heart failure ICD (implantable cardioverter-defibrillator) in place HTN (hypertension) CAD (coronary artery disease) Hyperlipidemia LDL goal <70 Dyspnea Bibasilar crackles Sleep apnea Insomnia Delusion of persecution Surgical History H/O inguinal hernia repair History of tooth extraction Hx of CABG (~2018) History of open heart surgery History of bilateral cataract extraction Family History Father No problems noted. Mother CVD (cardiovascular disease) Social History Household Members: Spouse Housing: Apartment Alcohol intake: former Patient Tobacco Use Status: Never used Tobacco e-Cigarette/Vaping Use: Never Used Second Hand Smoke Exposure: No service: No Current occupational status: retired Cognitive needs: Yes Hearing needs: No Vision needs: Yes Office Procedures Cardiac Device Check Cardiac Device Check Details: Date of service- 10/22/2023; based on impedance data and physiological variables, possible optivol fluid accumulation Jul to Sep. [id number] Cardiac Device Interrogation, cardio physiologic monitor Procedure code (CPT) selection complete Assessment & Plan Assessment & Plan (1) Chronic systolic (congestive) heart failure: Code(s): I50.22 - Chronic systolic (congestive) heart failure Plan x Coding Level of Care Code Procedure Only Diagnoses Chronic systolic (congestive) heart failure I50.22 CPT Codes Cardiac Device Check - Cardiac Device 15: [id number] Cardiac Device Interrogation, cardio physiologic monitor ([id number])
== END ==
PROVIDERS: PCP Internal Medicine; Visit Provider Internal Medicine
DX: I50.22 Chronic systolic (congestive) heart failure (principal)
CPT/HCPCS: 93297

== ENCOUNTER 2023-11-18 14:49 | Outpatient (AMB) | payer OTHER, SELFPAY ==
--- NOTE | 2023-11-18 14:52 | A.OFFPC_ITS ---
Vital Signs 11/18/23 14:55 Height 5 ft 7 in Weight 211 lb BMI 33.0 BP 118/76 Blood Pressure Location Lt brachial Position Sitting Intake Visit Reasons: 4mth f/u Intake Note: Patient here for a 4 month follow up, c/o bilateral hand tingling, surgeon referral request Working Manager Required: No Accompanied by: Self / Same As Patient Allergies Penicillins Allergy (Intermediate, Verified 11/18/23 15:15) ITCHING Medication List - Last Reconciled 11/18/23 by Sophie Fulton MD amlodipine 5 mg PO DAILY aspirin (Enteric Coated Aspirin) 81 mg PO DAILY blood sugar diagnostic (FreeStyle Lite Strips) As directed 4 times a day blood-glucose meter (FreeStyle Lite Meter kit) As directed cholecalciferol (vitamin D3) 50 mcg PO DAILY 90 days CPAP (CPAP Machine/Device) As directed dulaglutide (Trulicity) 4.5 mg (0.5 mL) subcut QWEEK 90 days famotidine 20 mg PO BEDTIME 90 days flash glucose sensor ([employer] Manjit 14 Day Sensor kit) As directed every 14 days furosemide 40 mg PO DAILY 90 days gabapentin 100 mg PO BEDTIME 30 days galantamine ER 8 mg PO QAM insulin aspart U-100 (Novolog FlexPen U-100 Insulin aspart) 20 units (0.2 mL) subcut QID 30 days insulin glargine U-300 conc (Toujeo Max U-300 SoloStar) 65 units (0.2167 mL) subcut DAILY 90 days losartan 25 mg PO DAILY 90 days meclizine 12.5 mg PO Q12H PRN metformin 1,000 mg PO BID 90 days metoprolol succinate ER 100 mg PO DAILY pen needle, diabetic 4 times a day As directed pramipexole 0.5 mg PO DAILY rosuvastatin 40 mg PO DAILY trazodone 50 mg PO BEDTIME 90 days Ventolin HFA 90 mcg/actuation (albuterol sulfate) 2 puffs PO Q6H PRN NS Tobacco use date assessed: 11/18/23 Fall risk assessment: 1 Fall in past year Last assessed Fall Risk: 11/18/23 Dental Screening Dental Screen Date: 11/18/23 Did you have a dental visit in the last 12 months?: Yes Did you have a dental problem in the last 6 months where you did not have access to dental care?: No Was dental information given to patient?: Patient has dentist HPI HPI Comments History of Present Illness Details This is a 73-year-old male with diabetes mellitus type 2 with hyperglycemia, chronic kidney disease stage 3, chronic systolic congestive heart failure and hypertension that comes for follow-up on his conditions. A1c elevated and I will increase NovoLog and Toujeo. Blood pressure stable. GFR has not significantly changed and chronic kidney disease is follow by Nephrology. Last echocardiogram ejection fraction was 48%. He denies gaining 5 lb in a week. No chest pain, shortness on breath or leg edema. Complains of a skin lump that looks like a lipoma on the left side of his posterior neck. [facility] Medical History (Updated 11/18/23 @ 15:26 by Sophie Fulton MD) Hospital discharge follow-up CHF (congestive heart failure) ROE (obstructive sleep apnea) Hypothyroidism Reactive airway disease [id number] syndrome Obesity due to excess calories ROE (obstructive sleep apnea) ROE on CPAP Ischemic cardiomyopathy Atherosclerotic cardiovascular disease GERD (gastroesophageal reflux disease) Hypothyroidism Type 2 diabetes mellitus with hyperglycemia, with long-term current use of insulin Type 2 diabetes mellitus with diabetic polyneuropathy Essential hypertension Chronic systolic (congestive) heart failure ICD (implantable cardioverter-defibrillator) in place HTN (hypertension) CAD (coronary artery disease) Hyperlipidemia LDL goal <70 Dyspnea Bibasilar crackles Sleep apnea Insomnia Delusion of persecution Surgical History H/O inguinal hernia repair History of tooth extraction Hx of CABG (~2019) History of open heart surgery History of bilateral cataract extraction Family History Father No problems noted. Mother CVD (cardiovascular disease) Social History Household Members: Spouse Housing: Apartment Alcohol intake: former Patient Tobacco Use Status: Never used Tobacco e-Cigarette/Vaping Use: Never Used Second Hand Smoke Exposure: No service: No Current occupational status: retired Cognitive needs: Yes Hearing needs: No Vision needs: Yes Questionnaire PHQ-9 Over the last 2 weeks, how often have you been bothered by any of the following problems? 1. Little interest or pleasure in doing things: not at all 2. Feeling down, depressed, or hopeless: not at all 3. Trouble falling or staying asleep, or sleeping too much: not at all 4. Feeling tired or having little energy: several days 5. Poor appetite or overeating: not at all 6. Feeling bad about yourself - or that you are a failure or have let yourself or your family down: not at all 7. Trouble concentrating on things, such as reading the newspaper or watching television: not at all 8. Moving or speaking so slowly that other people could have noticed. Or the opposite - being so fidgety or restless that you have been moving around a lot more than usual: not at all 9. Thoughts that you would be better off or of hurting yourself in some way: not at all Total score: 1 Depression Screening Interpretation: Negative Depression Screening Done: Yes 53273 - PHQ-9 Billing: Yes Source: Developed by Drs. Godwin Street, Luisa Carlin, Lawrence Escamilla and colleagues, with an educational sonia from [employer]. Thrive Questionnaire Date Thrive assessed: 11/18/23 I am a: Patient What is your living situation today?: I have a steady place to live Within the past 12 months, did the food you bought not last and you didn't have the money to get more?: Never true Within the past 12 months, did you worry whether your food would run out before you got money to buy more?: Never true Do you have trouble paying for medicines?: No Do you have trouble getting transportation to medical appointments?: No Do you have trouble paying your heating and electricity bill?: No Do you have trouble taking care of your child, family member or friend?: No Do you have trouble with day-to-day activities such as bathing, preparing meals, shopping, managing finances, etc.?: No Are you currently unemployed and looking for a job?: No Are you interested in more education?: No Please select the resources that you would like help with: None Currently or been in a relationship where the following occur: no concerns reported THRIVE Score: 0 AUDIT C Alcohol Use Questionnaire (AUDIT-C) 1. How often do you have a drink containing alcohol?: Never Total Score: 0 RENNY-7 AMB Questionnaire RENNY-7 Date RENNY - 7 assessed: 11/18/23 Feeling nervous, anxious, or on edge: 0 = Not at all Not being able to stop or control worryin = Not at all Worrying too much about different things: 0 = Not at all Trouble relaxin = Not at all Being so restless that it is hard to sit still: 0 = Not at all Becoming easily annoyed or irritable: 0 = Not at all Feeling afraid as if something awful might happen: 0 = Not at all Total RENNY-7 score (0-4 normal; 5-9 mild; 10-14 moderate; 15-21 severe): 0 Source: Developed by Drs. Godwin Street, Luisa Carlin, Lawrence Escamilla and colleagues, with an educational sonia from [employer]. RENNY-7 Assessment Billing RENNY-7 Assessment Tool: RENNY-7 Assessment 75975 Review of Systems Const All systems reviewed & are unremarkable except as noted in HPI and below Eyes Reports no additional complaints, Denies change in vision and Denies other visual disturbances Card Denies chest pain at rest, Denies chest pain with activity, Denies edema, Denies irregular heart rhythm, Denies claudication, Denies dyspnea, Denies dyspnea on exertion, Denies orthopnea, Denies paroxysmal nocturnal dyspnea and Denies slow heart rate Resp Denies cough, Denies dyspnea and Denies dyspnea on exertion GI Denies abdominal pain, Denies change in bowel habits, Denies excessive flatus, Denies nausea and Denies vomiting Denies urinary hesitancy, Denies urinary incontinence and Denies urinary urgency Physical exam (Primary Care) Vital Signs: Last Vital Signs BP 118/76 11/18/23 14:55 BMI result Body Mass Index 33.0 Tobacco/Smoking Status: Tobacco use Status Tobacco use date assessed 11/18/23 11/18/23 15:01 Patient Tobacco Use Status Never used Tobacco 11/18/23 14:53 e-Cigarette/Vaping Use Never Used 11/18/23 14:53 PHQ-9: PHQ-9 Score PHQ-9: Total score 1 11/18/23 15:19 Depression Screening Interpretation: Negative Thrive Assessment: Date of Thrive Assessment Date Thrive assessed 04/15/24 04/15/24 15:01 Currently or been in a relationship where the following occur: no concerns reported Resp Effort & Inspection: normal respiratory effort Auscultation: clear to auscultation bilaterally Cardio Jugular venous distension: no JVD Rate: regular rate Rhythm: regular rhythm Heart sounds: S1 normal heart sound present and S2 normal heart sound present Extrem General: Yes full ROM Results AMB Hemoglobin A1c AMB Hemoglobin A1c 10.9 % Last Edit by OREN Escobar on 11/18/23 15: 05 Results Reviewed Results Reviewed: Laboratory Last Values Hgb A1c (Clinic) 10.9 % (4.0-6.0) H 11/18/23 14:51 Assessment and Plan Assessment & Plan (1) Type 2 diabetes mellitus with hyperglycemia, with long-term current use of insulin: Code(s): E11.65 - Type 2 diabetes mellitus with hyperglycemia; 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 A1c goal is equal or less than 7%. Continue metformin and Trulicity. (2) Chronic systolic (congestive) heart failure: Code(s): I50.22 - Chronic systolic (congestive) heart failure Plan: Use diuretics as needed. Follow-up with Cardiology. The goal is to not gain 5 lb in a week. (3) Essential hypertension: Code(s): I10 - Essential (primary) hypertension Plan: Continue losartan and amlodipine. Blood pressure goal is equal or less than 130/80. (4) CKD (chronic kidney disease) stage 3, GFR 30-59 ml/min: Code(s): N18.30 - Chronic kidney disease, stage 3 unspecified Qualifiers: Chronic kidney disease stage 3 subtype: stage 3b (GFR 30-44) Qualified Code(s): N18.32 - Chronic kidney disease, stage 3b Plan: Avoid NSAIDs. Keep blood pressure within goal. Follow-up with nephrology. Orders: Orders AMB Hemoglobin A1c Today E11.65 - Type 2 diabetes mellitus with hyperglycemia, Z79.4 - care home (current) use of insulin Microalbumin, Random (w Creat) Today E11.9 - Type 2 diabetes mellitus without complications Vitamin D 25-OH Total Today E55.9 - Vitamin D deficiency, unspecified Vitamin B12 and Folate Today E53.8 - Deficiency of other specified B group vitamins Lipid Panel Today E78.5 - Hyperlipidemia, unspecified Comprehensive Forman. Panel Fast Today N18.32 - Chronic kidney disease, stage 3b NT-proBNP Today I50.32 - Chronic diastolic (congestive) heart failure Thyroid Stimulating Hormone Today E03.9 - Hypothyroidism, unspecified Referrals General Surgery Referral R22.9 - Localized swelling, mass and lump, unspecified Medications: Changed From insulin aspart U-100 (Novolog FlexPen U-100 Insulin aspart) 20 units (0.2 mL) subcut QID 30 days 24 mL 6RF E11.42 - Type 2 diabetes mellitus with diabetic polyneuropathy To insulin aspart U-100 (Novolog FlexPen U-100 Insulin aspart) 30 units (0.3 mL) subcut TID 30 days 27 mL 6RF E11.42 - Type 2 diabetes mellitus with diabetic polyneuropathy From insulin glargine U-300 conc (Toujeo Max U-300 SoloStar) 65 units (0.2167 mL) subcut DAILY 90 days 19.503 mL 3RF E11.42 - Type 2 diabetes mellitus with diabetic polyneuropathy, 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 To insulin glargine U-300 conc (Toujeo Max U-300 SoloStar) 75 units (0.25 mL) subcut DAILY 90 days 22.5 mL 3RF E11.42 - Type 2 diabetes mellitus with diabetic polyneuropathy, Z79.4 - care home (current) use of insulin From insulin aspart U-100 (Novolog FlexPen U-100 Insulin aspart) 30 units (0.3 mL) subcut TID 30 days 27 mL 6RF E11.42 - Type 2 diabetes mellitus with diabetic polyneuropathy To insulin aspart U-100 (Novolog FlexPen U-100 Insulin aspart) 35 units (0.35 mL) subcut TID 30 days 31.5 mL 6RF E11.42 - Type 2 diabetes mellitus with diabetic polyneuropathy Refilled cholecalciferol (vitamin D3) 50 mcg PO DAILY 90 days 90 caps 1RF dulaglutide (Trulicity) 4.5 mg (0.5 mL) subcut QWEEK 90 days 6.5 mL 3RF E11.65 - Type 2 diabetes mellitus with hyperglycemia, Z79.4 - care home (current) use of insulin Coding Level of Care Code Est Pt Level 4 (94315) Diagnoses Type 2 diabetes mellitus with hyperglycemia, with long-term current use of insul in E11.65; Z79.4 Chronic systolic (congestive) heart failure I50.22 Essential hypertension I10 Stage 3b chronic kidney disease N18.32 Chronic kidney disease stage 3 subtype: stage 3b (GFR 30-44) Additional Codes RENNY-7 Assessment Billing - RENNY-7 Assessment Tool: RENNY-7 Assessment 54258 ([id number]) Time Spent (min) 23
[2023-11-18 14:55] VITALS: BP 118/76; BMI 33.0
== END 2023-11-18 15:28 | disposition home or self-care (01) ==
PROVIDERS: PCP Internal Medicine; Visit Provider Internal Medicine
DX: E11.65 Type 2 diabetes mellitus with hyperglycemia (principal); I13.0 Hypertensive heart and chronic kidney disease with heart failure and stage 1 through stage 4 chronic kidney disease, or unspecified chronic kidney disease; I50.22 Chronic systolic (congestive) heart failure; N18.32 Chronic kidney disease, stage 3b
CPT/HCPCS: 83036; 99214

== ENCOUNTER 2023-11-26 14:43 | Outpatient (REF) | payer OTHER, SELFPAY | END 2023-11-26 14:44 | disposition home or self-care (01) | LOC: HO.LNP 14:43 | PROVIDERS: PCP Internal Medicine; Referring Provider Internal Medicine; Visit Provider Surgery | DX: L72.0 Epidermal cyst (principal) | CPT/HCPCS: 11423; 88304; 99202 ==

== ENCOUNTER 2023-11-26 14:43 | Outpatient (AMB) | payer OTHER, SELFPAY ==
--- NOTE | 2023-11-26 14:46 | MHC.OFFVIS ---
Vital Signs 11/26/23 14:53 Height 5 ft 7 in Weight 214 lb BMI 33.5 BP 127/65 Blood Pressure Location Rt brachial Position Sitting Pulse 89 Intake Visit Reasons: Lipoma~ Lt post neck Intake Note: Patient referred by PCP Dr. True Fulton for lipoma on Lt post neck. Present for 2yrs. Patient c/o: states he has removed growth but keeps growing back. Equipment Washer Required: Yes Accompanied by: Self / Same As Patient Allergies Penicillins Allergy (Intermediate, Verified 11/26/23 14:51) ITCHING Medication List - Last Reconciled 11/26/23 by David Sears MD amlodipine 5 mg PO DAILY aspirin (Enteric Coated Aspirin) 81 mg PO DAILY blood sugar diagnostic (FreeStyle Lite Strips) As directed 4 times a day blood-glucose meter (FreeStyle Lite Meter kit) As directed cholecalciferol (vitamin D3) 50 mcg PO DAILY 90 days CPAP (CPAP Machine/Device) As directed dulaglutide (Trulicity) 4.5 mg (0.5 mL) subcut QWEEK 90 days famotidine 20 mg PO BEDTIME 90 days flash glucose sensor (FreeStyle Manjit 14 Day Sensor kit) As directed every 14 days furosemide 40 mg PO DAILY 90 days gabapentin 100 mg PO BEDTIME 30 days galantamine ER 8 mg PO QAM insulin aspart U-100 (Novolog FlexPen U-100 Insulin aspart) 35 units (0.35 mL) subcut TID 30 days insulin glargine U-300 conc (Toujeo Max U-300 SoloStar) 75 units (0.25 mL) subcut DAILY 90 days losartan 25 mg PO DAILY 90 days meclizine 12.5 mg PO Q12H PRN metformin 1,000 mg PO BID 90 days metoprolol succinate ER 100 mg PO DAILY pen needle, diabetic 4 times a day As directed pramipexole 0.5 mg PO DAILY rosuvastatin 40 mg PO DAILY trazodone 50 mg PO BEDTIME 90 days Ventolin HFA 90 mcg/actuation (albuterol sulfate) 2 puffs PO Q6H PRN NS HPI Comments Details: Patient presents for evaluation of a left postauricular cyst. He has had this several years time. His increasing in size, become more symptomatic. Would like to have it removed. He has no such lesions elsewhere. Chart was reviewed and patient evaluated [facility] Medical History (Updated 11/26/23 @ 14:53 by OREN Sanchez) Defibrillator discharge Hospital discharge follow-up CHF (congestive heart failure) ROE (obstructive sleep apnea) Hypothyroidism Reactive airway disease Dqjy-IDVGU-70 syndrome Obesity due to excess calories ROE (obstructive sleep apnea) ROE on CPAP Ischemic cardiomyopathy Atherosclerotic cardiovascular disease GERD (gastroesophageal reflux disease) Hypothyroidism Type 2 diabetes mellitus with hyperglycemia, with long-term current use of insulin Type 2 diabetes mellitus with diabetic polyneuropathy Essential hypertension Chronic systolic (congestive) heart failure ICD (implantable cardioverter-defibrillator) in place HTN (hypertension) CAD (coronary artery disease) Hyperlipidemia LDL goal <70 Dyspnea Bibasilar crackles Sleep apnea Insomnia Delusion of persecution Surgical History (Updated 11/26/23 @ 15:26 by David Sears MD) H/O inguinal hernia repair History of tooth extraction Hx of CABG (~2019) History of open heart surgery History of bilateral cataract extraction Family History Father No problems noted. Mother CVD (cardiovascular disease) Social History Household Members: Spouse Housing: Apartment Alcohol intake: former Patient Tobacco Use Status: Never used Tobacco e-Cigarette/Vaping Use: Never Used Second Hand Smoke Exposure: No service: No Current occupational status: retired Cognitive needs: Yes Hearing needs: No Vision needs: Yes Physical Exam Vital Signs: Last Vital Signs Pulse 89 11/26/23 14:53 BP 127/65 11/26/23 14:53 BMI result Body Mass Index 33.5 Neck Other: Proximally 4 x 3 cm left postauricular mass consistent with a large sebaceous cyst Office Procedures Excision Details: Risks, benefits, alternatives of excision of postauricular large sebaceous cyst were reviewed with the patient and included but not limited to bleeding, infection, recurrence, numbness, pain, scarring the patient was to proceed. All questions answered. Consent signed. After appropriate positioning, patient underwent 1% lidocaine and Betadine prep and a transverse by elliptical incision was made around the cyst in question and carried down through skin, subcutaneous tissue, and undermined and specimen sent to pathology. It measured approximately 4 x 3 cm. Wound was irrigated, secured hemostasis, and closed using running subcuticular 3-0 Vicryl suture followed by Steri-Strips and sterile dressings. Patient tolerated procedure well. 21512-Armynwct scalp/neck/hands/feet/genitalia 3.1cm-4cm Procedure code (CPT) selection complete Office Meds lidocaine 1 %-epinephrine 1:100,000 injection solution Performing Provider: David Sears MD Performing Location: [facility] [place] [facility] Administered by: David Sears MD on 11/26/23 15:25 Dose Route Admin Location Dispensed Lot Number Expiration Date NDC Per Diem Interpreter 10 mL Infiltration 10 mL Assessment & Plan Assessment & Plan (1) Lump of skin: Code(s): R22.9 - Localized swelling, mass and lump, unspecified Category: Surgical Plan: Patient has been given local instructions including shower in 2 days, no strenuous activities, isolated wound periodically, Tylenol or Motrin p.r.n. and patient will see me as directed or p.r.n.. All questions answered. (2) Epidermal inclusion cyst: Code(s): L72.0 - Epidermal cyst Category: Surgical Plan: See above Orders: Orders AMB Excision Today L72.0 - Epidermal cyst, R22.9 - Localized swelling, mass and lump, unspecified Medications: New lidocaine-epinephrine 1 %-1:100,000 10 mL Infiltration ONCE 30 mL 0RF L72.0 - Epidermal cyst, R22.9 - Localized swelling, mass and lump, unspecified Coding Level of Care Code New Pt Level 5 (88539) Diagnoses Lump of skin R22.9 Epidermal inclusion cyst L72.0 CPT Codes Scalp/Neck/Hands/Feet/Genetalia - CPT: 64097-Yphbqqff scalp/neck/hands/feet/genitalia 3.1cm-4cm ([id number])
[2023-11-26 14:53] VITALS: BP 127/65; PULSE 89; BMI 33.5
== END 2023-11-26 15:22 | disposition home or self-care (01) ==
PROVIDERS: PCP Internal Medicine; Referring Provider Internal Medicine; Visit Provider Surgery
DX: R22.9 Localized swelling, mass and lump, unspecified (principal); L72.0 Epidermal cyst
CPT/HCPCS: 11423; 99204

== ENCOUNTER 2023-12-04 08:49 | Outpatient (AMB) | payer OTHER, SELFPAY ==
--- NOTE | 2023-12-04 09:09 | MHC.OFFVIS ---
Intake Visit Reasons: s/p Lipoma~ Lt post neck Intake Note: Patient here for 1wk p/o exc on Lt postauricular. Reports incision healing well. Patient c/o: itch along scar, redness. Steri strips still in place. Patient not feeling well this morning. He is wearing a mask due to cough. Core Inspector Required: Yes Core Inspector Name: Laura LOTT Accompanied by: Self / Same As Patient Allergies Penicillins Allergy (Intermediate, Verified 12/04/23 16:37) ITCHING HPI Comments Details: Patient presents for follow-up. He has no wound issues or complaints. Pathology is benign. [facility] Medical History (Updated 12/04/23 @ 20:19 by Sophie Fulton MD) Cardiomyopathy Hypoglycemia due to type 2 diabetes mellitus Acute on chronic systolic (congestive) heart failure Defibrillator discharge Hospital discharge follow-up CHF (congestive heart failure) ROE (obstructive sleep apnea) Hypothyroidism Reactive airway disease Ylsw-[id number]-13 syndrome Obesity due to excess calories ROE (obstructive sleep apnea) ROE on CPAP Ischemic cardiomyopathy Atherosclerotic cardiovascular disease GERD (gastroesophageal reflux disease) Hypothyroidism Type 2 diabetes mellitus with hyperglycemia, with long-term current use of insulin Type 2 diabetes mellitus with diabetic polyneuropathy Essential hypertension Chronic systolic (congestive) heart failure ICD (implantable cardioverter-defibrillator) in place HTN (hypertension) CAD (coronary artery disease) Hyperlipidemia LDL goal <70 Dyspnea Bibasilar crackles Sleep apnea Insomnia Delusion of persecution Surgical History (Updated 12/05/23 @ 10:25 by David Sears MD) H/O inguinal hernia repair History of tooth extraction Hx of CABG (~2019) History of open heart surgery History of bilateral cataract extraction Family History Father No problems noted. Mother CVD (cardiovascular disease) Social History Household Members: Spouse Housing: Apartment Alcohol intake: former Patient Tobacco Use Status: Never used Tobacco e-Cigarette/Vaping Use: Never Used Second Hand Smoke Exposure: No service: No Current occupational status: retired Cognitive needs: Yes Hearing needs: No Vision needs: Yes Physical Exam Neck Other: Incision is clean dry and intact healing well Assessment & Plan Assessment & Plan (1) Postop check: Code(s): Z09 - Encounter for follow-up examination after completed treatment for conditions other than malignant neoplasm Category: Surgical Plan Patient has been given local instructions, and will follow-up p.r.n.. All questions answered. Coding Level of Care Code Global (36936) Diagnoses Postop check Z09
== END 2023-12-04 09:27 | disposition home or self-care (01) ==
PROVIDERS: PCP Internal Medicine; Visit Provider Surgery
DX: Z09 Encounter for follow-up examination after completed treatment for conditions other than malignant neoplasm (principal)
CPT/HCPCS: 99024

== ENCOUNTER → 2023-12-04 08:49 | Outpatient (BNVA) | payer OTHER, SELFPAY | PROVIDERS: PCP Internal Medicine; Visit Provider Surgery | DX: Z09 Encounter for follow-up examination after completed treatment for conditions other than malignant neoplasm (principal); Z87.2 Personal history of diseases of the skin and subcutaneous tissue | CPT/HCPCS: 99212 ==

== ENCOUNTER 2023-12-04 16:04 | Outpatient (AMB) | payer OTHER, SELFPAY ==
--- NOTE | 2023-12-04 16:07 | A.OFFPC_ITS ---
Vital Signs 12/04/23 16:08 Height 5 ft 7 in Weight 214 lb BMI 33.5 BP 118/64 Blood Pressure Location Lt brachial Position Sitting Intake Visit Reasons: Fatigue Intake Note: patient here c/o cough, phlegm, fatigue Applications Specialist Required: No Accompanied by: Self / Same As Patient Allergies Penicillins Allergy (Intermediate, Verified 12/04/23 16:37) ITCHING Medication List - Last Reconciled 12/04/23 by Sophie Fulton MD amlodipine 5 mg PO DAILY aspirin (Enteric Coated Aspirin) 81 mg PO DAILY blood sugar diagnostic (FreeStyle Lite Strips) As directed 4 times a day blood-glucose meter (FreeStyle Lite Meter kit) As directed cholecalciferol (vitamin D3) 50 mcg PO DAILY 90 days CPAP (CPAP Machine/Device) As directed dulaglutide (Trulicity) 4.5 mg (0.5 mL) subcut QWEEK 90 days famotidine 20 mg PO BEDTIME 90 days flash glucose sensor (FreeStyle Manjit 14 Day Sensor kit) As directed every 14 days furosemide 40 mg PO DAILY 90 days gabapentin 100 mg PO BEDTIME 30 days galantamine ER 8 mg PO QAM insulin aspart U-100 (Novolog FlexPen U-100 Insulin aspart) 35 units (0.35 mL) subcut TID 30 days insulin glargine U-300 conc (Toujeo Max U-300 SoloStar) 75 units (0.25 mL) subcut DAILY 90 days losartan 25 mg PO DAILY 90 days meclizine 12.5 mg PO Q12H PRN metformin 1,000 mg PO BID 90 days metoprolol succinate ER 100 mg PO DAILY pen needle, diabetic 4 times a day As directed pramipexole 0.5 mg PO DAILY rosuvastatin 40 mg PO DAILY trazodone 50 mg PO BEDTIME 90 days Ventolin HFA 90 mcg/actuation (albuterol sulfate) 2 puffs PO Q6H PRN NS Tobacco use date assessed: 11/18/23 Fall risk assessment: No Falls in past year Last assessed Fall Risk: 12/04/23 Dental Screening Dental Screen Date: 11/18/23 HPI HPI Comments History of Present Illness Details This is a 73-year-old male with diabetes mellitus type 2 on long-term current use of insulin, hypertension, hyperlipidemia, chronic kidney disease stage 3 and chronic systolic congestive heart failure that comes today complaining of shortness of breath associated with wheezing and productive cough that has been present for few weeks. No fever. Pulmonary function test was ordered. Chest x-ray ordered. This is most likely due to asthma exacerbation. Will see pulmonology in a few months. Last A1c was elevated and some changes were made. Blood pressure stable. Lipid panel will be ordered. GFR has not significantly changed and he is aware has to avoid NSAIDs. Last echocardiogram done May 2023 shows ejection fraction of 48%. 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 Obesity due to excess calories ROE (obstructive sleep apnea) ROE on CPAP Ischemic cardiomyopathy Atherosclerotic cardiovascular disease GERD (gastroesophageal reflux disease) Hypothyroidism Type 2 diabetes mellitus with hyperglycemia, with long-term current use of insulin Type 2 diabetes mellitus with diabetic polyneuropathy Essential hypertension Chronic systolic (congestive) heart failure ICD (implantable cardioverter-defibrillator) in place HTN (hypertension) CAD (coronary artery disease) Hyperlipidemia LDL goal <70 Dyspnea Bibasilar crackles Sleep apnea Insomnia Delusion of persecution Surgical History H/O inguinal hernia repair History of tooth extraction Hx of CABG (~2019) History of open heart surgery History of bilateral cataract extraction Family History Father No problems noted. Mother CVD (cardiovascular disease) Social History Household Members: Spouse Housing: Apartment Alcohol intake: former Patient Tobacco Use Status: Never used Tobacco e-Cigarette/Vaping Use: Never Used Second Hand Smoke Exposure: No service: No Current occupational status: retired Cognitive needs: Yes Hearing needs: No Vision needs: Yes Questionnaire Thrive Questionnaire Date Thrive assessed: 11/18/23 RENNY-7 AMB Questionnaire RENNY-7 Date RENNY - 7 assessed: 11/18/23 Source: Developed by Drs. Godwin L. Luisa Street, Lawrence Escamilla and colleagues, with an educational sonia from [employer]. Review of Systems Const All systems reviewed & are unremarkable except as noted in HPI and below Eyes Reports no additional complaints, Denies change in vision and Denies other visual disturbances Card Denies chest pain at rest, Denies chest pain with activity, Denies edema, Denies irregular heart rhythm, Denies claudication, Reports dyspnea, Denies dyspnea on exertion, Denies orthopnea, Denies paroxysmal nocturnal dyspnea and Denies slow heart rate Resp Reports chest congestion, Reports cough, Reports dyspnea, Denies dyspnea on exertion and Reports wheezing Aller/Immun Reports wheezing Physical exam (Primary Care) Vital Signs: Last Vital Signs BP 118/64 12/04/23 16:08 BMI result Body Mass Index 33.5 Tobacco/Smoking Status: Tobacco use Status Tobacco use date assessed 11/18/23 12/04/23 16:11 Patient Tobacco Use Status Never used Tobacco 12/04/23 16:11 e-Cigarette/Vaping Use Never Used 12/04/23 16:11 Thrive Assessment: Date of Thrive Assessment Date Thrive assessed 11/18/23 12/04/23 16:11 Resp Effort & Inspection: normal respiratory effort Auscultation: wheezes Cardio Jugular venous distension: no JVD Rate: regular rate Rhythm: regular rhythm Heart sounds: S1 normal heart sound present and S2 normal heart sound present Extrem General: Yes full ROM Assessment and Plan Assessment & Plan (1) CKD (chronic kidney disease) stage 3, GFR 30-59 ml/min: Code(s): N18.30 - Chronic kidney disease, stage 3 unspecified Qualifiers: Chronic kidney disease stage 3 subtype: stage 3b (GFR 30-44) Qualified Code(s): N18.32 - Chronic kidney disease, stage 3b Plan: Avoid NSAIDs. Keep blood pressure within goal. (2) Type 2 diabetes mellitus with hyperglycemia, with long-term current use of insulin: Code(s): E11.65 - Type 2 diabetes mellitus with hyperglycemia; Z79.4 - senior living (current) use of insulin Plan: Continue insulin. A1c goal is equal or less than 7%. (3) Chronic systolic (congestive) heart failure: Code(s): I50.22 - Chronic systolic (congestive) heart failure Plan: Continue furosemide. The goal is to not gain 5 lb in a week. (4) Essential hypertension: Code(s): I10 - Essential (primary) hypertension Plan: Continue losartan. Blood pressure goal is equal or less than 130/80. (5) Hyperlipidemia LDL goal <70: Code(s): E78.5 - Hyperlipidemia, unspecified Plan: Continue statins. LDL goal is less than 70. (6) Asthma: Code(s): J45.909 - Unspecified asthma, uncomplicated Plan: Start a prednisone pack. Pulmonary function test ordered. X-ray ordered. Start use rescue inhaler as needed. Orders: Orders XR chest 2V Today J06.9 - Acute upper respiratory infection, unspecified PFT pulmonary function test Today J45.909 - Unspecified asthma, uncomplicated Medications: New prednisone Take 4 tabs for 2 days, then 3 tabs for 2 days, then 2 tabs for 2 days, then 1 tab for 2 days 10 mg PO DIRECTED 8 days 20 tabs 0RF doxycycline hyclate 100 mg PO BID 5 days 10 tabs 0RF Changed From insulin glargine U-300 conc (Toujeo Max U-300 SoloStar) 75 units (0.25 mL) subcut DAILY 90 days 22.5 mL 3RF E11.42 - Type 2 diabetes mellitus with diabetic polyneuropathy, Z79.4 - manager long term care (current) use of insulin To insulin glargine U-300 conc (Toujeo Max U-300 SoloStar) 80 units (0.2667 mL) subcut DAILY 90 days 24.003 mL 3RF E11.42 - Type 2 diabetes mellitus with diabetic polyneuropathy, Z79.4 - manager long term care (current) use of insulin Coding Level of Care Code Est Pt Level 4 (87444) Diagnoses Stage 3b chronic kidney disease N18.32 Chronic kidney disease stage 3 subtype: stage 3b (GFR 30-44) Type 2 diabetes mellitus with hyperglycemia, with long-term current use of insulin E11.65; Z79.4 Chronic systolic (congestive) heart failure I50.22 Essential hypertension I10 Hyperlipidemia LDL goal <70 E78.5 Asthma J45.909 Time Spent (min) 25
[2023-12-04 16:08] VITALS: BP 118/64; BMI 33.5
== END 2023-12-04 16:46 | disposition home or self-care (01) ==
PROVIDERS: PCP Internal Medicine; Visit Provider Internal Medicine
DX: I13.0 Hypertensive heart and chronic kidney disease with heart failure and stage 1 through stage 4 chronic kidney disease, or unspecified chronic kidney disease (principal); N18.32 Chronic kidney disease, stage 3b; I50.22 Chronic systolic (congestive) heart failure; Z79.4 Long term (current) use of insulin; E11.65 Type 2 diabetes mellitus with hyperglycemia; E78.5 Hyperlipidemia, unspecified; J45.909 Unspecified asthma, uncomplicated
CPT/HCPCS: 99214

== ENCOUNTER 2023-12-05 12:56 | Outpatient (REF) | payer OTHER, SELFPAY ==
--- NOTE | ~2023-12-05 | XR_ITS ---
EXAMINATION: XR CHEST CLINICAL INFORMATION: Acute upper respiratory infection. COMPARISON: CT chest May 27, 2023. X-ray chest May 26, 2023 and 06/09/2020. TECHNIQUE: 2 views of the chest were obtained. FINDINGS: Median sternotomy wires. Redemonstration of fragmentation of the first 2 most cranial median sternotomy wires. Low lung volumes. Mild degenerative changes in the thoracic spine. Redemonstration of left chest wall pacer with lead again projecting in expected location of right ventricle. No gross pneumothorax. Heart size is normal. No large pleural effusion. XR/XR chest 2V IMPRESSION: Redemonstration of fragmentation of the first 2 most cranial median sternotomy wires. No new focal consolidation to suggest pneumonia.
== END 2023-12-05 12:57 | disposition home or self-care (01) ==
LOC: HO.XRAY 12:56
PROVIDERS: PCP Internal Medicine; Visit Provider Internal Medicine
DX: J06.9 Acute upper respiratory infection, unspecified (principal)
CPT/HCPCS: 71046

== ENCOUNTER 2023-12-07 12:47 | Emergency (ER) | payer OTHER, SELFPAY ==
--- NOTE | ~2023-12-07 | XR_ITS ---
EXAMINATION: XR KNEE, RIGHT CLINICAL INFORMATION: Fall. Pain. COMPARISON: None available. TECHNIQUE: Four views of the right knee. FINDINGS: Bone alignment is normal. No acute fracture or dislocation. There may be old trauma to the lateral femoral condyle. Joint spaces are normal. Small osteophytes at the patellofemoral joint. Joint spaces otherwise normal. No joint effusion. XR/XR knee RT 4V IMPRESSION: No acute fracture or dislocation. Mild degenerative changes at the patellofemoral joint.
--- NOTE | ~2023-12-07 | XR_ITS ---
EXAMINATION: XR ELBOW, LEFT CLINICAL INFORMATION: Fall COMPARISON: None available. TECHNIQUE: AP, lateral, and oblique views of the left elbow. FINDINGS: The bones and soft tissues are normal. No fracture or joint effusion. Alignment is anatomic. Joint spaces are maintained. XR/XR elbow LT 2V IMPRESSION: Normal left elbow.
[2023-12-07 13:02] VITALS: BP 107/51; PULSE 70; RESP 18; TEMP 36.6; O2SAT 98; BMI 33.8
--- NOTE | 2023-12-07 13:02 | ED_ITS ---
HPI - Fall General Chief Complaint: Fall Stated Complaint: Fall R knee pain Time Seen by Provider: 12/07/23 13:31 Source: patient Mode of arrival: ambulatory Limitations: no limitations History of Present Illness HPI Narrative: 73 yo male With history of HFpEF s/p ICD, DM on insulin, ROE, CAD s/p CABG, CKD and asthma who is presenting to the ER for evaluation of bilateral knee pain and left elbow pain after he tripped and fell today while walking out of the gas station. He didn't see the bottom step and tripped. He sustained abrasions to both knees, the right is more painful than the left. He also has some bruising to his left forearm and elbow. He reports his right knee is the most painful of all the injuries. He did not hit his head or lose consciousness. Not on anticoagulation. No chest pain, abdominal pain. His brought him in for evaluation of the wounds given he is diabetic and on insulin. MD complaint: fall Onset (ago): minute(s) Fall from: standing Fall witnessed: yes, by family Place fall occurred: street Loss of consciousness: none Prolonged down time: no Symptoms prior to fall: none Context: tripped/slipped Severity: moderate Severity scale (1-10): 6 Quality: aching Associated symptoms (after fall): denies Related Data Home Medications ?Medication ?Instructions ?Recorded ?Confirmed CPAP (CPAP Machine/Device) 06/24/23 12/04/23 Previous Rx's ?Medication ?Instructions ?Recorded blood-glucose meter (FreeStyle #1 ea 10/05/20 Lite Meter kit) flash glucose sensor (FreeStyle #2 ea 01/04/22 Manjit 14 Day Sensor kit) blood sugar diagnostic (FreeStyle #100 ea 01/05/23 Lite Strips) famotidine 20 mg tablet 20 mg PO BEDTIME for heartburn 90 03/07/23 days #90 tabs gabapentin 100 mg capsule 100 mg PO BEDTIME 30 days #30 caps 03/07/23 Ventolin HFA 90 mcg/actuation 2 puff PO Q6H PRN for wheezing #18 04/03/23 aerosol inhaler (albuterol sulfate) ea furosemide 40 mg tablet 40 mg PO DAILY 90 days #90 tabs 05/28/23 meclizine 12.5 mg tablet 12.5 mg PO Q12H PRN for dizziness 06/24/23 #30 tabs pen needle, diabetic 32 gauge x #120 ea 07/18/23 galantamine 8 mg 24 hr 8 mg PO QAM #90 caps 07/22/23 capsule,extended release trazodone 50 mg tablet 50 mg PO BEDTIME 90 days #90 tabs 08/03/23 metformin 1,000 mg tablet 1,000 mg PO BID 90 days #180 tabs 09/07/23 amlodipine 5 mg tablet 5 mg PO DAILY #90 tabs 09/22/23 metoprolol succinate 100 mg 100 mg PO DAILY #90 tabs 09/22/23 tablet,extended release 24 hr pramipexole 0.5 mg tablet 0.5 mg PO DAILY #90 tabs 09/22/23 rosuvastatin 40 mg tablet 40 mg PO DAILY #90 tabs 10/05/23 losartan 25 mg tablet 25 mg PO DAILY 90 days #90 tabs 11/14/23 cholecalciferol (vitamin D3) 50 50 mcg PO DAILY 90 days #90 caps 11/18/23 mcg (2,000 unit) capsule dulaglutide 4.5 mg/0.5 mL 4.5 mg (0.5 mL) subcut QWEEK 90 11/18/23 subcutaneous pen injector days #6.5 mL (Trulicity) insulin aspart U-100 100 unit/mL 35 unit (0.35 mL) subcut TID 30 11/18/23 (3 mL) subcutaneous pen (Novolog days #31.5 mL FlexPen U-100 Insulin aspart) aspirin 81 mg tablet,delayed 81 mg PO DAILY #90 tabs 11/30/23 release (Enteric Coated Aspirin) doxycycline hyclate 100 mg tablet 100 mg PO BID 5 days #10 tabs 12/04/23 insulin glargine U-300 conc 300 80 unit (0.2667 mL) subcut DAILY 12/04/23 unit/mL (3 mL) subcutaneous pen 90 days #24.003 mL (Toujeo Max U-300 SoloStar) prednisone 10 mg tablet 10 mg PO DIRECTED 8 days #20 12/04/23 tabs Allergies Allergy/AdvReac Type Severity Reaction Status Date / Time Penicillins Allergy Intermediate ITCHING Verified 12/07/23 13:05 Review of Systems Review of Systems: Yes all other systems are reviewed and are negative [facility] Past Medical History Medical History (Updated 12/07/23 @ 14:07 by SUSAN Dior) Cardiomyopathy Hypoglycemia due to type 2 diabetes mellitus Acute on chronic systolic (congestive) heart failure Defibrillator discharge Hospital discharge follow-up CHF (congestive heart failure) ROE (obstructive sleep apnea) Hypothyroidism Reactive airway disease [id number] syndrome Obesity due to excess calories ROE (obstructive sleep apnea) ROE on CPAP Ischemic cardiomyopathy Atherosclerotic cardiovascular disease GERD (gastroesophageal reflux disease) Hypothyroidism Type 2 diabetes mellitus with hyperglycemia, with long-term current use of insulin Type 2 diabetes mellitus with diabetic polyneuropathy Essential hypertension Chronic systolic (congestive) heart failure ICD (implantable cardioverter-defibrillator) in place HTN (hypertension) CAD (coronary artery disease) Hyperlipidemia LDL goal <70 Dyspnea Bibasilar crackles Sleep apnea Insomnia Delusion of persecution Surgical History (Updated 12/05/23 @ 10:25 by David Sears MD) H/O inguinal hernia repair History of tooth extraction Hx of CABG (~2019) History of open heart surgery History of bilateral cataract extraction Family History Family History Father No problems noted. Mother CVD (cardiovascular disease) Social History Social History Household Members: Spouse Housing: Apartment Alcohol intake: former Patient Tobacco Use Status: Never used Tobacco e-Cigarette/Vaping Use: Never Used Second Hand Smoke Exposure: No Advance Directives: No Advance Directives Information Provided: Yes Do you have a plan to hurt others: No Plan service: No Current occupational status: retired Cognitive needs: Yes Hearing needs: No Vision needs: Yes Physical Exam Vital Signs: Vital Signs: Last Vital Signs Temp 98 F 12/07/23 13:02 Pulse 70 12/07/23 13:02 Resp 18 12/07/23 13:02 BP 107/51 L 12/07/23 13:02 Pulse Ox 98 12/07/23 13:02 O2 Del Method Room Air 12/07/23 13:02 BMI result Body Mass Index 33.8 Appearance: Alert. Oriented X3. No acute distress. Head: normocephalic, atraumatic. Eyes: Pupils equal, round and reactive to light. ENT: Pharynx normal. No tonsillar swelling or exudate. Neck: Normal inspection. Neck supple. CVS: Normal heart rate and rhythm. Pulses normal. Respiratory: No respiratory distress. Breath sounds normal. Abdomen: Soft and nontender. +BS x4 Skin: Skin warm and dry. Normal skin color. Normal skin turgor. No rashes. Extremities: Superficial abrasions to the right knee, approximately 3 x 3 cm area, no active bleeding. Tender to touch. Normal flexion and extension of the knee with pain upon full flexion. Normal palpation of the patella. Very small 1 cm superficial abrasion to the left knee with full range of motion. Left forearm with small area of ecchymosis and superficial abrasion. Normal palpation of the left elbow, left wrist. Equal oil separator strength bilaterally. Neuro/psych: Oriented X 3. No motor deficit. No sensory deficit. CN II-XII intact. Normal speech and cognition. Course Course Course Narrative: This is an RME performed by [employer] MEDIA AID: Additional HPI, ROS, PE not included below will be deferred to primary provider. Patient is a 73 y.o. who presents emergency department for evaluation of a Mechanical trip and fall off of a curb leaving the gas station resulting in a fall forward onto bilateral knees and left elbow. Plan: XR Medical Decision Making Medical Decision Making MDM Narrative: 73-year-old male with multiple comorbidities presents the ER for evaluation of right greater than left knee pain, superficial abrasions and left elbow pain after he tripped and fell at a gas station today. No head strike or LOC. He has not on anticoagulation. he is ambulatory. x-rays were performed of his knee and elbow. No acute fractures appreciated. Local wound care performed to the right knee abrasions, cleansed with normal saline, bacitracin applied along with a nonstick dressing and gauze wrap. Ice was applied with symptomatic relief. Patient was steady on his feet and stable for discharge home. trade show coordinator used to discuss results, wound care and return precautions. They expressed understanding and all questions were answered. Differential Diagnosis Differential Diagnoses: The differential diagnosis associated with the presentation includes Superficial abrasion, knee contusion, elbow contusion, knee effusion, tibial plateau fracture, patellar fracture, elbow fracture Admission/Observation Consideration of admission/observation: Escalation of care including admission/observation considered Elderly man with a fall, considered observation/admission Independent Interpretation I performed an independent interpretation of an: Plain X-Ray Interpretation: no fracture appreciated, agree with radiology read Radiology Impression Discussion of test interpretation with radiology: I have reviewed the radiologist's reading. Radiologist Impression: EXAMINATION: XR KNEE, RIGHT CLINICAL INFORMATION: Fall. Pain. COMPARISON: None available. TECHNIQUE: Four views of the right knee. FINDINGS: Bone alignment is normal. No acute fracture or dislocation. There may be old trauma to the lateral femoral condyle. Joint spaces are normal. Small osteophytes at the patellofemoral joint. Joint spaces otherwise normal. No joint effusion. XR/XR knee RT 4V IMPRESSION: No acute fracture or dislocation. Mild degenerative changes at the patellofemoral joint. EXAMINATION: XR ELBOW, LEFT CLINICAL INFORMATION: Fall COMPARISON: None available. TECHNIQUE: AP, lateral, and oblique views of the left elbow. FINDINGS: The bones and soft tissues are normal. No fracture or joint effusion. Alignment is anatomic. Joint spaces are maintained. XR/XR elbow LT 2V IMPRESSION: Normal left elbow. Independent Historian Clinical information obtained from an independent historian. History obtained from or confirmed by: Spouse External Record Review External record reviewed: Office record, Outpatient record, Prior outpatient labs and Prior outpatient radiology Prescription Management I considered prescription management with: Pain Medication Chronic Conditions Patient?s care impacted by: Diabetes and Hypertension Critical Care Time Critical Care Time Critical Care Time: No Discharge Plan Discharge Clinical Impression: Abrasion of knee, right Qualifiers: Encounter type: initial encounter Qualified Code(s): S80.211A - Abrasion, right knee, initial encounter Contusion of elbow, left Qualifiers: Encounter type: initial encounter Qualified Code(s): S50.02XA - Contusion of left elbow, initial encounter Patient Disposition: Home, Self-Care Instructions: Contusion in Adults (ED), Abrasion (ED) Additional Instructions: Your x-rays did not show any broken bones Use ice to the areas as needed for pain and swelling Take 1000 mg of Tylenol every 8 hours as needed for pain Use bacitracin 1 time per day Keep wound clean and covered Monitor for signs of infection including redness, pain, swelling If you develop new or worsening symptoms call 911 or come back to the ER for further evaluation. Prescriptions: No Action (DME) blood-glucose meter [FreeStyle Lite Meter] Kit See Rx Instructions .ROUTE .MEDSUPPLY Qty: 1 0RF Rx Instructions: As directed (DME) FreeStyle Manjit 14 Day Sensor Kit See Rx Instructions .Route Qty: 2 11RF Rx Instructions: As directed every 14 days (DME) FreeStyle Lite Strips Strip See Rx Instructions .Route Qty: 100 11RF Rx Instructions: As directed 4 times a day albuterol sulfate [Ventolin HFA] 90 mcg/actuation HFA aerosol inhaler 2 puff PO Q6H PRN (Reason: for wheezing) Qty: 18 5RF meclizine 12.5 mg tablet 12.5 mg PO Q12H PRN (Reason: for dizziness) Qty: 30 0RF galantamine 8 mg capsule,ext rel. pellets 24 hr 8 mg PO QAM Qty: 90 1RF trazodone 50 mg tablet 50 mg PO BEDTIME 90 Days Qty: 90 2RF metformin 1,000 mg tablet 1,000 mg PO BID 90 Days Qty: 180 1RF amlodipine 5 mg tablet 5 mg PO DAILY Qty: 90 0RF metoprolol succinate 100 mg tablet extended release 24 hr 100 mg PO DAILY Qty: 90 0RF pramipexole 0.5 mg tablet 0.5 mg PO DAILY Qty: 90 0RF rosuvastatin 40 mg tablet 40 mg PO DAILY Qty: 90 1RF losartan 25 mg tablet 25 mg PO DAILY 90 Days Qty: 90 0RF aspirin [Enteric Coated Aspirin] 81 mg tablet,delayed release (DR/EC) 81 mg PO DAILY Qty: 90 0RF furosemide 40 mg tablet 40 mg PO DAILY 90 Days Qty: 90 1RF famotidine 20 mg tablet 20 mg PO BEDTIME 90 Days Qty: 90 1RF gabapentin 100 mg capsule 100 mg PO BEDTIME 30 Days Qty: 30 3RF prednisone 10 mg tablet 10 mg PO DIRECTED 8 Days Qty: 20 0RF Rx Instructions: Take 4 tabs for 2 days, then 3 tabs for 2 days, then 2 tabs for 2 days, then 1 tab for 2 days doxycycline hyclate 100 mg tablet 100 mg PO BID 5 Days Qty: 10 0RF Toujeo Max U-300 SoloStar 300 unit/mL (3 mL) insulin pen 80 unit subcut DAILY 90 Days Qty: 24.003 3RF (DME) pen needle, diabetic 32 gauge x 5/32 needle See Rx Instructions subcut .MEDSUPPLY Qty: 120 3RF Rx Instructions: 4 times a day As directed cholecalciferol (vitamin D3) 50 mcg (2,000 unit) capsule 50 mcg PO DAILY 90 Days Qty: 90 1RF Trulicity 4.5 mg/0.5 mL pen injector 4.5 mg subcut QWEEK 90 Days Qty: 6.5 3RF insulin aspart U-100 [Novolog FlexPen U-100 Insulin] 100 unit/mL (3 mL) insulin pen 35 unit subcut TID 30 Days Qty: 31.5 6RF (DME) CPAP Machine/Device Device See Rx Instructions .Route Rx Instructions: As directed Print Language: Azeri
[2023-12-07 14:58] VITALS: BP 109/52; PULSE 66; RESP 18; TEMP 36.4; O2SAT 93
== END 2023-12-07 14:59 | disposition home or self-care (01) ==
PROVIDERS: Emergency Provider Emergency Medicine; PCP Internal Medicine
DX: S80.211A Abrasion, right knee, initial encounter (principal); S80.212A Abrasion, left knee, initial encounter; S50.02XA Contusion of left elbow, initial encounter; W10.1XXA Fall (on)(from) sidewalk curb, initial encounter; Y93.89 Activity, other specified; Y92.524 Gas station as the place of occurrence of the external cause; Y99.9 Unspecified external cause status; E11.22 Type 2 diabetes mellitus with diabetic chronic kidney disease; I13.0 Hypertensive heart and chronic kidney disease with heart failure and stage 1 through stage 4 chronic kidney disease, or unspecified chronic kidney disease; N18.30 Chronic kidney disease, stage 3 unspecified; I50.23 Acute on chronic systolic (congestive) heart failure; E78.5 Hyperlipidemia, unspecified; G20.A1 Parkinson's disease without dyskinesia, without mention of fluctuations; Z95.1 Presence of aortocoronary bypass graft; Z95.810 Presence of automatic (implantable) cardiac defibrillator; Z79.4 Long term (current) use of insulin; Z79.84 Long term (current) use of oral hypoglycemic drugs; Z79.85 Long-term (current) use of injectable non-insulin antidiabetic drugs; Z79.02 Long term (current) use of antithrombotics/antiplatelets; Z79.82 Long term (current) use of aspirin; Z79.899 Other long term (current) drug therapy
CPT/HCPCS: 73070; 73564; 99282; 99283

== ENCOUNTER 2023-12-16 13:51 | Outpatient (AMB) | payer OTHER, SELFPAY ==
[2023-12-16 14:06] VITALS: PULSE 66; O2SAT 92; BMI 33.5
--- NOTE | 2023-12-16 14:06 | A.OFFVIS_ITS ---
Vital Signs 12/16/23 14:06 Height 5 ft 7 in Weight 214 lb BMI 33.5 Pulse 66 Pulse Source Pulse Oximeter Pulse Oximetry (%) 92 Oxygen Delivery Method Room Air Intake Visit Reasons: Obstructive sleep apnea Community Organization Aide Required: No Allergies Penicillins Allergy (Intermediate, Verified 12/16/23 14:07) ITCHING HPI Comments Details: The patient is a 73-year-old gentleman with a known history of CAD status post surgery in addition to obstructive sleep apnea. His last sleep study occurred in [place] back in 2018 when he had a in-lab study demonstrating an AHI of 28 with hypoxia down to 75%. The patient is placed on CPAP in the CPAP therapy was very effective beneficial. However, the CPAP malfunction and is no longer working. The patient is been struggling with significant untreated obstructive sleep apnea. His is concerned because he stops breathing at nighttime and she needs to wake him up. He has significant snoring and also wakes him up with shortness of breath. He does have headaches at times. I am concerned because of increased cardiovascular risk. This point the patient needs to get another CPAP is set up with the [employer] company [facility]. In the meantime the patient also complains of dyspnea on exertion. Moderate severity. He has been deconditioned and also has gained weight. He also does likely contributing. He has had multiple spirometries demonstrating some degree of decrease in the forced vital capacity. On examination appears to have some crepitations as well as crackles. He denies any significant exposure to any fumes or toxins. 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 Denies any exposure to any mold or farm animals. 10/15/2022 the patient is here for pulmonary follow-up visit. He continues to have significant daytime drowsiness. His [place] score continues to be elevated 06/06/2024. He is frustrated that he cannot use CPAP. The patient does have significant cardiovascular risk factors. We had him have a repeat sleep study demonstrating severe sleep apnea with an AHI of 37 with significant hypoxia. I am concerned that he is having untreated severe sleep apnea and this could result in worse cardiovascular outcomes. The patient needs to be set up with a new DME company and get re-initiated with CPAP. Therefore will send a script to a local DME company. In the meantime he continues to use his respiratory medicine with good effect. Denies any chest tightness or wheezing. He has not had to use his rescue inhaler. No recent imaging studies to review. Will send a script to his [employer] company for a new CPAP and ultimately have him return in 3-4 months with the CPAP in order to review the results and download. 02/11/2023 the patient is here for a pulmonary follow-up visit. He has lost about 20 lb. The patient has not been using his CPAP regularly. We did review his sleep study again demonstrating severe sleep apnea. The patient understands that he needs to use the machine specially with his cardiovascular risk factors. His mask is to type rate now he does not like it. Will go ahead and request a different mask for him. I did provide him with a medium F30 mask with the hope that he can tolerated better. He is complaining of neuropathy pains in his upper and lower extremities. He had been using trazodone for sleep. But then he was prescribed gabapentin which I believe will be a better agent. Therefore he can stop the trazodone may continue the gabapentin. The patient did not bring his CPAP in. He will bring it to the next visit. From a respiratory status the patient seems to be doing well at the current respiratory regimen. He has not required any prednisone. He does not use his rescue inhaler often. 06/24/2023 the patient is here for a pulmonary follow-up visit. The patient is doing a lot better. He continues to lose weight. He has been using the CPAP now with a nasal mask. He has been tolerating it much better. I did download his machine. It appears that he is using it 83% of the time in more than 4 hours a night. The patient's set up APAP with a maximum pressure of 14 cm. Unfortunately his AHI continues be elevated close to 10. appears to be mainly apneic episodes so therefore will increase the maximum pressure to 16 cm water. The patient may need additional pressures. Still he will try this pressure And see if his effective increase it accordingly. If he continues to have an elevated AHI even at maximum PAP pressures then we need to further discuss the possibility of a BiPAP. From a respiratory status is doing well on his current medicines. He continues to monitor closely his p.o. intake and watching closely his sodium intake. He is taking care of himself and making significant lifestyle changes to improve his overall health. He is already seeing some drastic improvement with some weight loss. He was briefly admitted to the hospital an treated for CHF. 12/16/2023 the patient is here for a pulmonary follow-up visit. Overall the patient has been doing well. He has been using the CPAP every night with a nasal mask. He did get a download from the CPAP and his AHI is down 3.5. His current CPAP settings are 12 to 18 cm. Sometimes he feels the pressure is too low. Of switch him over to a fixed CPAP with a pressure of 15 cm see if we can adjusted that way. I did also add a ramp of 13 cm to start with. If he has any issues with that he will call and will adjust the CPAP online. For some reason his DME company has not been able to get supplies. He is registered in does have a machine that some working order. I will submit another prescription to his DME company [employer] in order for him to start getting supplies. I did provide him with another new sample of a nasal mask in order to continue to provide him with effective equipment in order for him to be able to use it. His hose is broken but he put tape on it therefore he still can use it some. I am hopeful that he can get supplies from his DME company soon. From a respiratory status the patient is doing well has not had any exacerbations. [facility] Medical History (Updated 12/08/23 @ 00:00 by Bernardo Cast) Cardiomyopathy Hypoglycemia due to type 2 diabetes mellitus Acute on chronic systolic (congestive) heart failure Defibrillator discharge Hospital discharge follow-up CHF (congestive heart failure) ROE (obstructive sleep apnea) Hypothyroidism Reactive airway disease [id number] syndrome Obesity due to excess calories ROE (obstructive sleep apnea) ROE on CPAP Ischemic cardiomyopathy Atherosclerotic cardiovascular disease GERD (gastroesophageal reflux disease) Hypothyroidism Type 2 diabetes mellitus with hyperglycemia, with long-term current use of insulin Type 2 diabetes mellitus with diabetic polyneuropathy Essential hypertension Chronic systolic (congestive) heart failure ICD (implantable cardioverter-defibrillator) in place HTN (hypertension) CAD (coronary artery disease) Hyperlipidemia LDL goal <70 Dyspnea Bibasilar crackles Sleep apnea Insomnia Delusion of persecution Surgical History (Updated 12/05/23 @ 10:25 by David Sears MD) H/O inguinal hernia repair History of tooth extraction Hx of CABG (~2019) History of open heart surgery History of bilateral cataract extraction Family History Father No problems noted. Mother CVD (cardiovascular disease) Social History Household Members: Spouse Housing: Apartment Alcohol intake: former Patient Tobacco Use Status: Never used Tobacco e-Cigarette/Vaping Use: Never Used Second Hand Smoke Exposure: No service: No Current occupational status: retired Cognitive needs: Yes Hearing needs: No Vision needs: Yes Review of Systems Const Denies daytime sleepiness, Denies snoring and Denies stops breathing during sleep Eyes Reports no additional complaints, Denies change in vision and Denies other visual disturbances Card Denies chest pain at rest, Denies chest pain with activity, Denies edema, Denies irregular heart rhythm, Denies claudication, Denies dyspnea, Denies dyspnea on exertion, Denies orthopnea, Denies paroxysmal nocturnal dyspnea and Denies slow heart rate Resp Reports cough, Denies dyspnea, Denies dyspnea on exertion and Denies snoring GI Denies abdominal pain, Denies change in bowel habits, Denies excessive flatus, Denies nausea and Denies vomiting Musc Denies abnormal gait, Denies atrophy, Denies deformity, Denies limited range of motion and Reports tingling Skin/Breast Denies bleeding lesions, Denies changing lesions and Denies rash Neuro Denies abnormal gait, Reports tingling and Reports paresthesias Physical Exam Vital Signs: Last Vital Signs Pulse 66 12/16/23 14:06 Pulse Ox 92 12/16/23 14:06 Oxygen Delivery Method Room Air 12/16/23 14:06 BMI result Body Mass Index 33.5 Const General: cooperative, comfortable and no acute distress Orientation/consciousness: patient oriented x3 HEENT Other: Unremarkable Neck Neck: Yes normal visual inspection Chest Chest palpation & inspection: normal inspection of the chest Resp Effort & Inspection: normal respiratory effort Auscultation: no crackles, no wheezes and diminished lung sounds Cardio Palpation: normal PMI Heart sounds: S1 normal heart sound present, S2 normal heart sound present, no gallops, no murmurs and no rubs GI Palpation (GI): Soft to palpation Back/Spine/Pelvis Other: unremarkable Skin General skin exam: no rashes or lesions noted Neuro General: patient oriented x3 Extrem General: Yes edema (1+) Psych Mental Status: mental status grossly normal Assessment & Plan Assessment & Plan (1) Reactive airway disease: Code(s): J45.909 - Unspecified asthma, uncomplicated Category: Medical Qualifiers: Asthma complication type: uncomplicated Asthma persistence: persistent Asthma severity: moderate Qualified Code(s): J45.40 - Moderate persistent asthma, uncomplicated (2) ROE (obstructive sleep apnea): Code(s): G47.33 - Obstructive sleep apnea (adult) (pediatric) Category: Medical (3) Dyspnea: Comment: Multifactorial. No significant hypoxia Code(s): R06.00 - Dyspnea, unspecified Category: Medical Qualifiers: Dyspnea type: dyspnea on exertion Qualified Code(s): R06.00 - Dyspnea, unspecified (4) ROE (obstructive sleep apnea): Code(s): G47.33 - Obstructive sleep apnea (adult) (pediatric) Category: Medical Plan continue PAP therapy for the severe ROE disease, nasal mask works best, will adjust APAP to CPAP 15. Needs supplies from DME: [employer] Continue short-acting beta agonist as needed Continue Symbicort twice a day stopped Gabapentin 100mg at night Diuresis as tolerated Follow-up 4-6 months with APAP Coding Level of Care Code Est Pt Level 4 (99391) Diagnoses Moderate persistent reactive airway disease without complication J45.40 Asthma complication type: uncomplicated Asthma persistence: persistent Asthma severity: moderate ROE (obstructive sleep apnea) G47.33 Dyspnea on exertion R06.00 Dyspnea type: dyspnea on exertion Time Spent (min) 17
== END 2023-12-16 14:28 | disposition home or self-care (01) ==
PROVIDERS: PCP Internal Medicine; Visit Provider Hospitalist
DX: J45.40 Moderate persistent asthma, uncomplicated (principal); G47.33 Obstructive sleep apnea (adult) (pediatric); R06.00 Dyspnea, unspecified
CPT/HCPCS: 99214

== ENCOUNTER → 2023-12-16 13:51 | Outpatient (BNVA) | payer OTHER, SELFPAY | PROVIDERS: PCP Internal Medicine; Visit Provider Hospitalist | DX: G47.33 Obstructive sleep apnea (adult) (pediatric) (principal); J45.40 Moderate persistent asthma, uncomplicated; R06.00 Dyspnea, unspecified | CPT/HCPCS: 99212 ==

== ENCOUNTER → 2023-12-23 23:59 | Outpatient (BNV) | payer OTHER, SELFPAY ==
--- NOTE | 2023-12-30 12:17 | A.OFFVIS_ITS ---
Intake Visit Reasons: REmote HF monitoring- [employer] Allergies Penicillins Allergy (Intermediate, Verified 12/16/23 14:07) ITCHING PFSH Medical History (Updated 12/08/23 @ 00:00 by Bernardo Cast) Cardiomyopathy Hypoglycemia due to type 2 diabetes mellitus Acute on chronic systolic (congestive) heart failure Defibrillator discharge Hospital discharge follow-up CHF (congestive heart failure) ROE (obstructive sleep apnea) Hypothyroidism Reactive airway disease [id number] syndrome Obesity due to excess calories ROE (obstructive sleep apnea) ROE on CPAP Ischemic cardiomyopathy Atherosclerotic cardiovascular disease GERD (gastroesophageal reflux disease) Hypothyroidism Type 2 diabetes mellitus with hyperglycemia, with long-term current use of insulin Type 2 diabetes mellitus with diabetic polyneuropathy Essential hypertension Chronic systolic (congestive) heart failure ICD (implantable cardioverter-defibrillator) in place HTN (hypertension) CAD (coronary artery disease) Hyperlipidemia LDL goal <70 Dyspnea Bibasilar crackles Sleep apnea Insomnia Delusion of persecution Surgical History (Updated 12/05/23 @ 10:25 by David Sears MD) H/O inguinal hernia repair History of tooth extraction Hx of CABG (~2019) History of open heart surgery History of bilateral cataract extraction Family History Father No problems noted. Mother CVD (cardiovascular disease) Social History Household Members: Spouse Housing: Apartment Alcohol intake: former Patient Tobacco Use Status: Never used Tobacco e-Cigarette/Vaping Use: Never Used Second Hand Smoke Exposure: No service: No Current occupational status: retired Cognitive needs: Yes Hearing needs: No Vision needs: Yes Office Procedures Cardiac Device Check Cardiac Device Check Details: Date of service- 12/23/2023; based on impedance data and physiological variables , there is no evidence of worsening congestive heart failure. [id number] Cardiac Device Interrogation, cardio physiologic monitor Procedure code (CPT) selection complete Assessment & Plan Assessment & Plan (1) Ischemic cardiomyopathy: Code(s): I25.5 - Ischemic cardiomyopathy Category: Medical Plan x Coding Level of Care Code Procedure Only Diagnoses Ischemic cardiomyopathy I25.5 CPT Codes Cardiac Device Check - Cardiac Device 15: [id number] Cardiac Device Interrogation, cardio physiologic monitor ([id number])
== END ==
PROVIDERS: PCP Internal Medicine; Visit Provider Internal Medicine
DX: I25.5 Ischemic cardiomyopathy (principal); Z95.810 Presence of automatic (implantable) cardiac defibrillator
CPT/HCPCS: 93297

== ENCOUNTER 2024-01-01 08:40 | Outpatient (AMB) | payer OTHER, SELFPAY ==
--- NOTE | 2024-01-01 08:41 | MHC.PC.OV ---
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: No Accompanied by: Spouse Allergies Penicillins Allergy (Intermediate, Verified 01/01/24 08:51) ITCHING Medication List - Last Reconciled 01/01/24 by Sophie Fulton MD amlodipine 5 mg PO DAILY aspirin (Enteric Coated Aspirin) 81 mg PO DAILY blood sugar diagnostic (FreeStyle Lite Strips) As directed 4 times a day blood-glucose meter (FreeStyle Lite Meter kit) As directed cholecalciferol (vitamin D3) 50 mcg PO DAILY 90 days CPAP (CPAP Machine/Device) As directed dulaglutide (Trulicity) 4.5 mg (0.5 mL) subcut QWEEK 90 days famotidine 20 mg PO BEDTIME 90 days flash glucose scanning reader ([employer] Manjit 2 [place]) As directed flash glucose scanning reader (FreeStyle Manjit 14 Day [place]) As directed flash glucose sensor (FreeStyle Manjit 14 Day Sensor kit) As directed every 14 days furosemide 40 mg PO DAILY 90 days gabapentin 100 mg PO BEDTIME 30 days galantamine ER 8 mg PO QAM insulin aspart U-100 (Novolog FlexPen U-100 Insulin aspart) 35 units (0.35 mL) subcut TID 30 days insulin glargine U-300 conc (Toujeo Max U-300 SoloStar) 80 units (0.2667 mL) subcut DAILY 90 days losartan 25 mg PO DAILY 90 days meclizine 12.5 mg PO Q12H PRN metformin 1,000 mg PO BID 90 days metoprolol succinate ER 100 mg PO DAILY pen needle, diabetic 4 times a day As directed pramipexole 0.5 mg PO DAILY prednisone 10 mg PO DIRECTED 8 days rosuvastatin 40 mg PO DAILY trazodone 50 mg PO BEDTIME 90 days Ventolin HFA 90 mcg/actuation (albuterol sulfate) 2 puffs PO Q6H PRN NS Tobacco use date assessed: 11/18/23 Fall risk assessment: No Falls in past year Last assessed Fall Risk: 01/01/24 Dental Screening Dental Screen Date: 11/18/23 HPI HPI Comments History of Present Illness Details This is a 73-year-old male with diabetes mellitus type 2 with hyperglycemia on long-term current use of insulin, hypertension, hyperlipidemia, chronic kidney disease stage 3, chronic systolic congestive heart failure and asthma that comes today accompanied by complaining of shortness of breath more prominent on exertion and audible wheezes with cough that started on and off about 2 months ago. Had a prednisone pack at the beginning of the month with no significant improvement. I will give him another prednisone pack and an antibiotic. Use rescue inhaler on a daily basis and I will add a long-acting inhaler. Was evaluated by pulmonology not that long ago. No fever. Last A1c in November was 10.9% and I will increase long-acting insulin from 80 units to 85 units. Blood pressure stable. Lipid panel was ordered. Last GFR was 42 and has microalbuminuria that is follow by Nephrology. Advised to keep blood pressure within goal. Last echocardiogram done 05/24/2023 shows ejection fraction of 48% and this is follow by cardiology. He does have bilateral leg edema today. 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 Obesity due to excess calories ROE (obstructive sleep apnea) ROE on CPAP Ischemic cardiomyopathy Atherosclerotic cardiovascular disease GERD (gastroesophageal reflux disease) Hypothyroidism Type 2 diabetes mellitus with hyperglycemia, with long-term current use of insulin Type 2 diabetes mellitus with diabetic polyneuropathy Essential hypertension Chronic systolic (congestive) heart failure ICD (implantable cardioverter-defibrillator) in place HTN (hypertension) CAD (coronary artery disease) Hyperlipidemia LDL goal <70 Dyspnea Bibasilar crackles Sleep apnea Insomnia Delusion of persecution Surgical History H/O inguinal hernia repair History of tooth extraction Hx of CABG (~2019) History of open heart surgery History of bilateral cataract extraction Family History Father No problems noted. Mother CVD (cardiovascular disease) Social History Household Members: Spouse Housing: Apartment Alcohol intake: former Patient Tobacco Use Status: Never used Tobacco e-Cigarette/Vaping Use: Never Used Second Hand Smoke Exposure: No service: No Current occupational status: retired Cognitive needs: Yes Hearing needs: No Vision needs: Yes Questionnaire Thrive Questionnaire Date Thrive assessed: 11/18/23 Currently or been in a relationship where the following occur: no concerns reported THRIVE Score: 0 RENNY-7 AMB Questionnaire RENNY-7 Date RENNY - 7 assessed: 11/18/23 Source: Developed by Drs. Godwin Street, Luisa Carlin, Lawrence Escamilla and colleagues, with an educational sonia from [address] Review of Systems Const All systems reviewed & are unremarkable except as noted in HPI and below Card Denies chest pain at rest, Denies chest pain with activity, Denies edema, Denies irregular heart rhythm, Denies claudication, Reports dyspnea, Reports dyspnea on exertion, Denies orthopnea, Denies paroxysmal nocturnal dyspnea and Denies slow heart rate Resp Reports cough, Reports dyspnea, Reports dyspnea on exertion and Reports wheezing Aller/Immun Reports wheezing Physical exam (Primary Care) Vital Signs: Last Vital Signs Pulse 66 01/01/24 08:44 BP 126/64 01/01/24 08:44 Pulse Ox 91 L 01/01/24 08:44 Oxygen Delivery Method Room Air 01/01/24 08:44 BMI result Body Mass Index 33.8 BMI Assessment/Plan discussion: High BMI High, discussed plan: lifestyle, weight reduction, dietary and physical activity Tobacco/Smoking Status: Tobacco use Status Tobacco use date assessed 11/18/23 01/01/24 08:49 Patient Tobacco Use Status Never used Tobacco 01/01/24 08:49 e-Cigarette/Vaping Use Never Used 01/01/24 08:49 Thrive Assessment: Date of Thrive Assessment Date Thrive assessed 11/18/23 01/01/24 08:49 Currently or been in a relationship where the following occur: no concerns reported Const General: cooperative and ill appearing Limitations: ambulation with cane Resp Effort & Inspection: audible wheezes and Actively coughing Auscultation: wheezes expiratory wheezes and throughout Cardio Jugular venous distension: no JVD Rate: regular rate Rhythm: regular rhythm Heart sounds: S1 normal heart sound present and S2 normal heart sound present Extrem General: Yes full ROM Assessment and Plan Assessment & Plan (1) Bronchitis: Code(s): J40 - Bronchitis, not specified as acute or chronic Plan: Start Z-James. Chest x-ray ordered. Start prednisone pack. (2) CKD (chronic kidney disease) stage 3, GFR 30-59 ml/min: Code(s): N18.30 - Chronic kidney disease, stage 3 unspecified Qualifiers: Chronic kidney disease stage 3 subtype: stage 3b (GFR 30-44) Qualified Code(s): N18.32 - Chronic kidney disease, stage 3b Plan: Keep blood pressure less than 130/80. Avoid NSAIDs. Follow-up with nephrology. (3) Type 2 diabetes mellitus with hyperglycemia, with long-term current use of insulin: Code(s): E11.65 - Type 2 diabetes mellitus with hyperglycemia; Z79.4 - prison (current) use of insulin Plan: Continue short-acting insulin 3 times a day. Increase long-acting insulin from 80 units to 85 units. A1c goal is equal or less than 7%. (4) Hyperlipidemia LDL goal <70: Code(s): E78.5 - Hyperlipidemia, unspecified Plan: Continue statins. LDL goal is less than 70. Repeat lipid panel. (5) Essential hypertension: Code(s): I10 - Essential (primary) hypertension Plan: Continue losartan. Blood pressure goal is equal or less than 130/80. (6) Chronic systolic (congestive) heart failure: Code(s): I50.22 - Chronic systolic (congestive) heart failure Plan: Continue the use of diuretics. The goal is to not gain 5 lb in a week. Follow-up with Cardiology. (7) Asthma: Code(s): J45.909 - Unspecified asthma, uncomplicated Qualifiers: Asthma severity: moderate Asthma persistence: persistent Asthma complication type: with acute exacerbation Qualified Code(s): J45.41 - Moderate persistent asthma with (acute) exacerbation Plan: Start Trelegy. Use rescue inhaler as needed. Orders: Orders Microalbumin, Random (w Creat) Today E11.9 - Type 2 diabetes mellitus without complications Complete Blood Count Auto Diff Today D64.9 - Anemia, unspecified Vitamin B12 and Folate Today E53.8 - Deficiency of other specified B group vitamins Thyroid Stimulating Hormone Today E03.9 - Hypothyroidism, unspecified Lipid Panel Today E78.5 - Hyperlipidemia, unspecified IRON PROFILE Today D64.9 - Anemia, unspecified Vitamin D 25-OH Total Today E55.9 - Vitamin D deficiency, unspecified Comprehensive [place]. Panel Fast Today I50.32 - Chronic diastolic (congestive) heart failure NT-proBNP Today I50.32 - Chronic diastolic (congestive) heart failure XR chest 2V Today R06.00 - Dyspnea, unspecified Medications: New azithromycin 250 mg orally; Take 2 tabs the first day, then 1 tab the next 4 days 250 mg PO DIRECTED 5 days 6 tabs 0RF qxajpzkihba-ghszzodow-gwmjwyrz 100-62.5-25 mcg (Trelegy Ellipta) 1 inh inhalation DAILY 28 days 28 ea 6RF J45.909 - Unspecified asthma, uncomplicated Changed From insulin glargine U-300 conc (Toujeo Max U-300 SoloStar) 80 units (0.2667 mL) subcut DAILY 90 days 24.003 mL 3RF E11.42 - Type 2 diabetes mellitus with diabetic polyneuropathy, Z79.4 - 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 computer operator (current) use of insulin To insulin glargine U-300 conc (Toujeo Max U-300 SoloStar) 85 units (0.2833 mL) subcut DAILY 90 days 25.497 mL 3RF E11.42 - Type 2 diabetes mellitus with diabetic polyneuropathy, Z79.4 - terminal computer operator (current) use of insulin Refilled flash glucose sensor (FreeStyle Manjit 14 Day Sensor kit) As directed every 14 days 2 ea 11RF prednisone Take 4 tabs for 2 days, then 3 tabs for 2 days, then 2 tabs for 2 days, then 1 tab for 2 days 10 mg PO DIRECTED 8 days 20 tabs 0RF flash glucose scanning reader (FreeStyle Manjit 2 [place]) As directed 1 ea 11RF E11.65 - Type 2 diabetes mellitus with hyperglycemia, Z79.4 - prison (current) use of insulin flash glucose scanning reader (FreeStyle Manjit 14 Day [place]) As directed 1 ea 0RF Coding Level of Care Code Est Pt Level 4 (71855) Complex EM visit Add On G2211 Diagnoses Bronchitis J40 Stage 3b chronic kidney disease N18.32 Chronic kidney disease stage 3 subtype: stage 3b (GFR 30-44) Type 2 diabetes mellitus with hyperglycemia, with long-term current use of insulin E11.65; Z79.4 Hyperlipidemia LDL goal <70 E78.5 Essential hypertension I10 Chronic systolic (congestive) heart failure I50.22 Moderate persistent asthma with acute exacerbation J45.41 Asthma severity: moderate Asthma persistence: persistent Asthma complication type: with acute exacerbation Time Spent (min) 25
[2024-01-01 08:44] VITALS: BP 126/64; PULSE 66; O2SAT 91; BMI 33.8
== END 2024-01-01 09:02 | disposition home or self-care (01) ==
PROVIDERS: PCP Internal Medicine; Visit Provider Internal Medicine
DX: J40 Bronchitis, not specified as acute or chronic (principal); I13.0 Hypertensive heart and chronic kidney disease with heart failure and stage 1 through stage 4 chronic kidney disease, or unspecified chronic kidney disease; N18.32 Chronic kidney disease, stage 3b; I50.22 Chronic systolic (congestive) heart failure; E11.65 Type 2 diabetes mellitus with hyperglycemia; Z79.4 Long term (current) use of insulin; E78.5 Hyperlipidemia, unspecified; J45.41 Moderate persistent asthma with (acute) exacerbation
CPT/HCPCS: 99214; G2211

== ENCOUNTER 2024-01-01 09:12 | Outpatient (REF) | payer OTHER, SELFPAY ==
--- NOTE | ~2024-01-01 | XR_ITS ---
EXAMINATION: XR CHEST CLINICAL INFORMATION: Dyspnea. COMPARISON: December 05, 2023 TECHNIQUE: 2 views of the chest were obtained. FINDINGS: Median sternotomy wires with redemonstration of fragmentation of multiple sternotomy wires including superior and most inferior wires. Left pacer stable with tip projecting in the region of the right ventricle. Cardiac silhouette appears upper limits of normal in size, likely due to lower lung volumes. Increased prominence of interstitial markings, particularly in the mid to lower lungs, may represent mild vascular congestion with basilar atelectasis. An infectious/inflammatory process could also be considered in the appropriate clinical setting. No gross pleural effusion appreciated. XR/XR chest 2V IMPRESSION: Increased prominence of interstitial markings, particularly in the mid to lower lungs, may represent mild vascular congestion with basilar atelectasis. An infectious/inflammatory process could also be considered in the appropriate clinical setting.
== END 2024-01-01 09:13 | disposition home or self-care (01) ==
LOC: HO.XRAY 09:12
PROVIDERS: PCP Internal Medicine; Visit Provider Internal Medicine
DX: R06.00 Dyspnea, unspecified (principal)
CPT/HCPCS: 71046

== ENCOUNTER 2024-01-15 17:08 | Outpatient (AMB) | payer OTHER, SELFPAY ==
[2024-01-15 17:16] VITALS: BP 120/70; BMI 33.7
--- NOTE | 2024-01-15 17:16 | MHC.PC.OV ---
Vital Signs 01/15/24 17:16 Height 5 ft 7 in Weight 215 lb BMI 33.7 BP 120/70 Blood Pressure Location Lt brachial Position Sitting Intake Visit Reasons: headaches, pain in RT side of neck, RT arm/hands Intake Note: Patient here c/o back of head pain, neck and right arm/hand numbness with tingling, low back right side pain Real Estate Executive Assistant Required: No Accompanied by: Spouse Allergies Penicillins Allergy (Intermediate, Verified 01/15/24 17:24) ITCHING Medication List - Last Reconciled 01/15/24 by Sophie Fulton MD amlodipine 5 mg PO DAILY aspirin (Enteric Coated Aspirin) 81 mg PO DAILY azithromycin 250 mg PO DIRECTED 5 days blood sugar diagnostic (FreeStyle Lite Strips) As directed 4 times a day blood-glucose meter (FreeStyle Lite Meter kit) As directed blood-glucose meter,continuous (FreeStyle Manjit 3 [place]) As directed blood-glucose sensor (FreeStyle Manjit 3 Sensor device) As directed cholecalciferol (vitamin D3) 50 mcg PO DAILY 90 days CPAP (CPAP Machine/Device) As directed dulaglutide (Trulicity) 4.5 mg (0.5 mL) subcut QWEEK 90 days famotidine 20 mg PO BEDTIME 90 days flash glucose scanning reader (FreeStyle Manjit 2 [place]) As directed flash glucose scanning reader (FreeStyle Manjit 14 Day [place]) As directed flash glucose sensor (FreeStyle Manjit 14 Day Sensor kit) As directed every 14 days tflpczdwkvj-yhivypxas-ynnhumeg 100-62.5-25 mcg (Trelegy Ellipta) 1 inh inhalation DAILY 28 days furosemide 40 mg PO DAILY 90 days gabapentin 100 mg PO BEDTIME 30 days galantamine ER 8 mg PO QAM insulin aspart U-100 (Novolog FlexPen U-100 Insulin aspart) 35 units (0.35 mL) subcut TID 30 days insulin glargine U-300 conc (Toujeo Max U-300 SoloStar) 85 units (0.2833 mL) subcut DAILY 90 days losartan 25 mg PO DAILY 90 days meclizine 12.5 mg PO Q12H PRN metformin 1,000 mg PO BID 90 days metoprolol succinate ER 100 mg PO DAILY pen needle, diabetic 4 times a day As directed pramipexole 0.5 mg PO DAILY prednisone 10 mg PO DIRECTED 8 days rosuvastatin 40 mg PO DAILY trazodone 50 mg PO BEDTIME 90 days Ventolin HFA 90 mcg/actuation (albuterol sulfate) 2 puffs PO Q6H PRN NS Tobacco use date assessed: 11/18/23 Fall risk assessment: No Falls in past year Last assessed Fall Risk: 01/15/24 Dental Screening Dental Screen Date: 01/15/24 Did you have a dental visit in the last 12 months?: No Did you have a dental problem in the last 6 months where you did not have access to dental care?: No Was dental information given to patient?: Patient has dentist HPI HPI Comments History of Present Illness Details This is a 73-year-old male with diabetes mellitus type 2 on long-term current use of insulin, chronic systolic congestive heart failure and Parkinson's that comes today complaining of neck pain that started about 2 weeks ago with limited range of motion. He also has some arm paresthesias. He fell about a month ago and did not hit his head or neck but only his hands and knees. Did not lose consciousness. 1-2 weeks after falling neck pain started. It is more prominent at night. Will order x-ray and physical therapy and give him a muscle relaxer. He is accompanied by . Last A1c was elevated and some changes in his insulin were done. Has not gain 5 lb in a week and furosemide was increased to 40 mg. Parkinson's disease was diagnosed in [place] and has been on pramipexole and will need a neurology follow-up for this matter. [facility] Medical History (Updated 01/15/24 @ 17:45 by Sophie Fulton MD) Chronic heart failure with preserved ejection fraction (HFpEF) Cardiomyopathy Hypoglycemia due to type 2 diabetes mellitus Acute on chronic systolic (congestive) heart failure Defibrillator discharge Hospital discharge follow-up CHF (congestive heart failure) ROE (obstructive sleep apnea) Hypothyroidism Reactive airway disease [id number] syndrome Obesity due to excess calories ROE (obstructive sleep apnea) ROE on CPAP Ischemic cardiomyopathy Atherosclerotic cardiovascular disease GERD (gastroesophageal reflux disease) Hypothyroidism Type 2 diabetes mellitus with hyperglycemia, with long-term current use of insulin Type 2 diabetes mellitus with diabetic polyneuropathy Essential hypertension Chronic systolic (congestive) heart failure ICD (implantable cardioverter-defibrillator) in place HTN (hypertension) CAD (coronary artery disease) Hyperlipidemia LDL goal <70 Dyspnea Bibasilar crackles Sleep apnea Insomnia Delusion of persecution Surgical History H/O inguinal hernia repair History of tooth extraction Hx of CABG (~2019) History of open heart surgery History of bilateral cataract extraction Family History Father No problems noted. Mother CVD (cardiovascular disease) Social History Household Members: Spouse Housing: Apartment Alcohol intake: former Patient Tobacco Use Status: Never used Tobacco e-Cigarette/Vaping Use: Never Used Second Hand Smoke Exposure: No service: No Current occupational status: retired Cognitive needs: Yes Hearing needs: No Vision needs: Yes Questionnaire Thrive Questionnaire Date Thrive assessed: 11/18/23 RENNY-7 AMB Questionnaire RENNY-7 Date RENNY - 7 assessed: 11/18/23 Source: Developed by Drs. Godwin Street, Luisa Carlin, Lawrence Escamilla and colleagues, with an educational sonia from [employer]. Review of Systems Const All systems reviewed & are unremarkable except as noted in HPI and below ENT Reports neck pain Card Denies chest pain at rest, Denies chest pain with activity, Denies edema, Denies irregular heart rhythm, Denies claudication, Denies dyspnea, Denies dyspnea on exertion, Denies orthopnea, Denies paroxysmal nocturnal dyspnea and Denies slow heart rate Resp Denies cough, Denies dyspnea and Denies dyspnea on exertion Musc Reports limited range of motion, Reports neck pain and Reports numbness Neuro Reports numbness Physical exam (Primary Care) Vital Signs: Last Vital Signs BP 120/70 01/15/24 17:16 BMI result Body Mass Index 33.7 BMI Assessment/Plan discussion: High BMI High, discussed plan: lifestyle, weight reduction, dietary and physical activity Tobacco/Smoking Status: Tobacco use Status Tobacco use date assessed 11/18/23 01/15/24 17:21 Patient Tobacco Use Status Never used Tobacco 01/15/24 17:21 e-Cigarette/Vaping Use Never Used 01/15/24 17:21 Thrive Assessment: Date of Thrive Assessment Date Thrive assessed 11/18/23 01/15/24 17:21 Neck Other: Limited lateral neck movements and limited neck extension and flexion Neck: Yes tender and Yes torticollis Resp Effort & Inspection: normal respiratory effort Auscultation: clear to auscultation bilaterally Cardio Jugular venous distension: no JVD Rate: regular rate Rhythm: regular rhythm Heart sounds: S1 normal heart sound present and S2 normal heart sound present Neuro General: no focal motor deficits Assessment and Plan Assessment & Plan (1) Cervical radiculopathy: Code(s): M54.12 - Radiculopathy, cervical region Plan: X-ray of the neck ordered. Start cyclobenzaprine at bedtime. Start physical therapy. (2) Paresthesia: Code(s): R20.2 - Paresthesia of skin Plan: Nerve conduction study order. (3) Type 2 diabetes mellitus with hyperglycemia, with long-term current use of insulin: Code(s): E11.65 - Type 2 diabetes mellitus with hyperglycemia; Z79.4 - half-way (current) use of insulin Plan: Continue metformin and insulin. A1c goal is equal or less than 7%. (4) Parkinson disease: Code(s): G20.A1 - Parkinson's disease without dyskinesia, without mention of fluctuations Qualifiers: Dyskinesia presence: unspecified whether dyskinesia Fluctuating manifestations: without fluctuating manifestations Qualified Code(s): G20.A1 - Parkinson's disease without dyskinesia, without mention of fluctuations Plan: Continue pramipexole. Referred to neurology. (5) Chronic systolic (congestive) heart failure: Code(s): I50.22 - Chronic systolic (congestive) heart failure Plan: Continue diuretics. The goal is to not gain 5 lb in a week. Orders: Orders NE nerve conduction velocity Today R20.2 - Paresthesia of skin XR cervical spine 2V Today M54.12 - Radiculopathy, cervical region PT Evaluation and Treatment Today M54.12 - Radiculopathy, cervical region Referrals Neurology Referral G20.A1 - Parkinson's disease without dyskinesia, without mention of fluctuations Medications: New cyclobenzaprine 10 mg PO BEDTIME 7 days PRN 7 tabs 0RF muscle spasm Discontinued prednisone Take 4 tabs for 2 days, then 3 tabs for 2 days, then 2 tabs for 2 days, then 1 tab for 2 days Discontinued Reason: Patient Completed Course 10 mg PO DIRECTED 8 days 20 tabs 0RF azithromycin 250 mg orally; Take 2 tabs the first day, then 1 tab the next 4 days Discontinued Reason: Patient Completed Course 250 mg PO DIRECTED 5 days 6 tabs 0RF Coding Level of Care Code Est Pt Level 4 (94012) Complex EM visit Add On G2211 Diagnoses Cervical radiculopathy M54.12 Paresthesia R20.2 Type 2 diabetes mellitus with hyperglycemia, with long-term current use of insulin E11.65; Z79.4 Parkinson's disease without fluctuating manifestations, unspecified whether dyskinesia present G20.A1 Dyskinesia presence: unspecified whether dyskinesia Fluctuating manifestations: without fluctuating manifestations Chronic systolic (congestive) heart failure I50.22 Time Spent (min) 24
== END 2024-01-15 17:31 | disposition home or self-care (01) ==
PROVIDERS: PCP Internal Medicine; Visit Provider Internal Medicine
DX: M54.12 Radiculopathy, cervical region (principal); E11.65 Type 2 diabetes mellitus with hyperglycemia; Z79.4 Long term (current) use of insulin; I50.22 Chronic systolic (congestive) heart failure; G20.A1 Parkinson's disease without dyskinesia, without mention of fluctuations; R20.2 Paresthesia of skin
CPT/HCPCS: 99214; G2211

== ENCOUNTER 2024-01-16 13:20 | Outpatient (REF) | payer OTHER, SELFPAY ==
--- NOTE | ~2024-01-16 | XR_ITS ---
EXAMINATION: XR CERVICAL SPINE CLINICAL INFORMATION: Cervical radiculopathy. COMPARISON: CT cervical spine dated 04/16/2021. TECHNIQUE: Frontal, lateral and odontoid views of the cervical spine were obtained. FINDINGS: Vertebral body heights are normal. No acute fracture or spondylolisthesis is seen. At C4-C5, there is a 2 mm anterolisthesis. There is arthropathy of the anterior margin of the C4 lower endplate. At C5-C6, there is a 2 mm anterolisthesis. No acute fracture or spondylolisthesis is seen. There are limbus vertebra anterior to the C2-C3 through C4-C5 disc spaces. No acute fracture or spondylolisthesis is seen. The posterior elements are intact. There is a calcification of the ligamentum nuchae. Multiple fractured sternotomy wire fragments are noted. A pacemaker lead is noted. XR/XR cervical spine 2V IMPRESSION: There is mild degenerative disc disease at C4-C5 and C5-C6.
== END 2024-01-16 13:21 | disposition home or self-care (01) ==
LOC: HO.LAB 13:20
PROVIDERS: PCP Internal Medicine; Visit Provider Internal Medicine
DX: M54.12 Radiculopathy, cervical region (principal)
CPT/HCPCS: 72040

== ENCOUNTER → 2024-01-23 23:59 | Outpatient (BNV) | payer OTHER, SELFPAY ==
--- NOTE | 2024-01-30 12:22 | MHC.OFFVIS ---
Intake Visit Reasons: Remote HF monitoring- Medtronic Allergies Penicillins Allergy (Intermediate, Verified 01/15/24 17:24) ITCHING PFSH Medical History Chronic heart failure with preserved ejection fraction (HFpEF) Cardiomyopathy Hypoglycemia due to type 2 diabetes mellitus Acute on chronic systolic (congestive) heart failure Defibrillator discharge Hospital discharge follow-up CHF (congestive heart failure) ROE (obstructive sleep apnea) Hypothyroidism Reactive airway disease [id number] syndrome Obesity due to excess calories ROE (obstructive sleep apnea) ROE on CPAP Ischemic cardiomyopathy Atherosclerotic cardiovascular disease GERD (gastroesophageal reflux disease) Hypothyroidism Type 2 diabetes mellitus with hyperglycemia, with long-term current use of insulin Type 2 diabetes mellitus with diabetic polyneuropathy Essential hypertension Chronic systolic (congestive) heart failure ICD (implantable cardioverter-defibrillator) in place HTN (hypertension) CAD (coronary artery disease) Hyperlipidemia LDL goal <70 Dyspnea Bibasilar crackles Sleep apnea Insomnia Delusion of persecution Surgical History H/O inguinal hernia repair History of tooth extraction Hx of CABG (~2019) History of open heart surgery History of bilateral cataract extraction Family History Father No problems noted. Mother CVD (cardiovascular disease) Social History Household Members: Spouse Housing: Apartment Alcohol intake: former Patient Tobacco Use Status: Never used Tobacco e-Cigarette/Vaping Use: Never Used Second Hand Smoke Exposure: No service: No Current occupational status: retired Cognitive needs: Yes Hearing needs: No Vision needs: Yes Office Procedures Cardiac Device Check Cardiac Device Check Details: Date of service- 01/23/2024; based on impedance data and physiological variables, there is possible Optivol fluid accumulation 12/30 to 01/06. [id number] Cardiac Device Interrogation, cardio physiologic monitor Procedure code (CPT) selection complete Assessment & Plan Assessment & Plan (1) Ischemic cardiomyopathy: Code(s): I25.5 - Ischemic cardiomyopathy Category: Medical Plan x Coding Level of Care Code Procedure Only Diagnoses Ischemic cardiomyopathy I25.5 CPT Codes Cardiac Device Check - Cardiac Device 15: [id number] Cardiac Device Interrogation, cardio physiologic monitor ([id number])
== END ==
PROVIDERS: PCP Internal Medicine; Visit Provider Internal Medicine
DX: I25.5 Ischemic cardiomyopathy (principal); Z95.810 Presence of automatic (implantable) cardiac defibrillator
CPT/HCPCS: 93297

== ENCOUNTER → 2024-01-23 23:59 | Outpatient (BNV) | payer OTHER, SELFPAY ==
--- NOTE | 2024-01-30 12:20 | A.OFFVIS_ITS ---
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 Obesity due to excess calories ROE (obstructive sleep apnea) ROE on CPAP Ischemic cardiomyopathy Atherosclerotic cardiovascular disease GERD (gastroesophageal reflux disease) Hypothyroidism Type 2 diabetes mellitus with hyperglycemia, with long-term current use of insulin Type 2 diabetes mellitus with diabetic polyneuropathy Essential hypertension Chronic systolic (congestive) heart failure ICD (implantable cardioverter-defibrillator) in place HTN (hypertension) CAD (coronary artery disease) Hyperlipidemia LDL goal <70 Dyspnea Bibasilar crackles Sleep apnea Insomnia Delusion of persecution Surgical History H/O inguinal hernia repair History of tooth extraction Hx of CABG (~2019) History of open heart surgery History of bilateral cataract extraction Family History Father No problems noted. Mother CVD (cardiovascular disease) Social History Household Members: Spouse Housing: Apartment Alcohol intake: former Patient Tobacco Use Status: Never used Tobacco e-Cigarette/Vaping Use: Never Used Second Hand Smoke Exposure: No service: No Current occupational status: retired Cognitive needs: Yes Hearing needs: No Vision needs: Yes Office Procedures Cardiac Device Check Cardiac Device Check Details: Date of service 01/23/2024; Battery life >7 years; normal lead parameters; no treated VT/VF; ; normal ICD function. [id number] Cardiac Interrogation, implant defibrillator w/interim Procedure code (CPT) selection complete Assessment & Plan Assessment & Plan (1) Ischemic cardiomyopathy: Code(s): I25.5 - Ischemic cardiomyopathy Category: Medical Plan x Coding Level of Care Code Procedure Only Diagnoses Ischemic cardiomyopathy I25.5 CPT Codes Cardiac Device Check - Cardiac Device 13: [id number] Cardiac Interrogation, implant defibrillator w/interim ([id number])
== END ==
PROVIDERS: PCP Internal Medicine; Visit Provider Internal Medicine
DX: I25.5 Ischemic cardiomyopathy (principal); Z95.810 Presence of automatic (implantable) cardiac defibrillator
CPT/HCPCS: 93295

== ENCOUNTER 2024-01-28 09:27 | Outpatient (REF) | payer OTHER, SELFPAY ==
--- NOTE | 2024-01-28 09:30 | EMG_ITS ---
Bilateral median and ulnar motor and sensory studies were performed. Bilateral radial sensory studies were performed and paraspinal muscles were tested with a needle. IMPRESSION: 1. Moderately severe bilateral median neuropathy across carpal tunnel. 2. Mild bilateral ulnar neuropathy across cubital tunnel. 3. 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 MD CAMERON Calles/HONG / [phone]
== END 2024-01-28 09:28 | disposition home or self-care (01) ==
LOC: HO.NEURO 09:27
PROVIDERS: PCP Internal Medicine; Visit Provider Internal Medicine
DX: R20.2 Paresthesia of skin (principal)
CPT/HCPCS: 95886; 95911

== ENCOUNTER 2024-02-12 09:04 | Emergency (ER) | payer OTHER, SELFPAY ==
--- NOTE | ~2024-02-12 | XR_ITS ---
EXAMINATION: XR CHEST CLINICAL INFORMATION: Shortness of breath COMPARISON: 01/01/2024 TECHNIQUE: Frontal view of the chest was obtained. FINDINGS: Chronic elevation right hemidiaphragm. There is platelike atelectasis now observed at the right base. Lungs otherwise clear. Heart and pulmonary vessels are normal. Sternal wires are present as is a left-sided pacer. XR/XR chest 1V IMPRESSION: New right basilar atelectasis. Recommend follow-up PA lateral when clinically feasible.
[2024-02-12 09:21] VITALS: BP 133/73; PULSE 71; RESP 16; TEMP 36.3; O2SAT 93; BMI 31.3
--- NOTE | 2024-02-12 09:26 | ECG_ITS ---
Test Reason : SOB Blood Pressure : / mmHG Vent. Rate : 070 BPM Atrial Rate : 070 BPM P-R Int : 162 ms QRS Dur : 082 ms QT Int : 384 ms P-R-T Axes : 041 052 084 degrees QTc Int : 414 ms Normal sinus rhythm Normal ECG When compared with ECG of 26-MAY-2023 23:23, Premature ventricular complexes are no longer Present Referred By: Generic ED Physician Electronically Signed By:Pedro Foster
[2024-02-12 09:41] LABS: MANUAL DIFF FLAG NO
[2024-02-12 09:43] LABS: Basophils Absolute Auto 0.1 X10*3/uL (0.0-0.2); Basophils Percent Auto 0.6 % (0-2); Eosinophils Absolute Auto 0.7 X10*3/uL (0.0-0.4); Eosinophils Percent Auto 5.9 % (0-4); Hematocrit 41.5 % (42.0-52.0); Hemoglobin 13.6 g/dl (14.0-18.0); Imm Gran Abs Auto 0.04 X10*3/uL (0.00-0.03); Imm Gran Pct Auto 0.3 % (0.0-0.4); Lymphocytes Absolute Auto 1.9 X10*3/uL (1.2-4.9); Mean Corpuscular HGB Conc 32.8 g/dl (31.0-36.0); Mean Corpuscular Hemoglobin 29.4 pg (27.0-33.0); Mean Corpuscular Volume 89.6 fL (80.0-98.0); Mean Platelet Volume 9.8 fL (9.4-12.4); Neutrophils Absolute Auto 8.4 x10*3/uL (2.0-8.3); Neutrophils Percent Auto 69.2 % (45-73); Platelet Count 238 X10*3/uL (160-400); Red Blood Count 4.63 X10*6/uL (4.60-5.80); Red Cell Distribution Width 14.5 % (11.0-16.0); White Blood Count 12.1 X10*3/uL (4.8-10.8)
[2024-02-12 09:59] LABS: Anion Gap 17 (12-20); Blood Urea Nitrogen 31 mg/dL (9-16); Calcium 9.2 mg/dL (8.4-10.2); Carbon Dioxide 26 mmol/L (22-29); Chloride 98 mmol/L (96-108); Creatinine Clr Calc Pharmacy 36.4; Estimated Glomerular Filt Rate 35; Glucose Random 305 mg/dL (60-115); Potassium 4.2 mmol/L (3.3-5.1); Sodium 137 mmol/L (135-145)
[2024-02-12 10:07] LABS: Troponin-I High Sensitivity 5.2 ng/L (<3.5-35.0)
[2024-02-12 11:37] LABS: B Type Natriuretic Peptide 78 pg/mL (<100)
[2024-02-12 16:00] VITALS: BP 126/61; PULSE 65; RESP 20; TEMP 36.9; O2SAT 91
[2024-02-12 18:03] VITALS: BP 121/62; PULSE 66; RESP 18; TEMP 36.6; O2SAT 92
[2024-02-12] MEDS: Albuterol/Iprat 2.5/0.5MG 3 ML AMPUL.NEB INHALE (18:13)
[2024-02-12] MEDS: predniSONE 20 MG TABLET 60 MG PO (18:13)
[2024-02-12] MEDS: Azithromycin 500 MG TABLET PO (18:13)
--- NOTE | 2024-02-12 18:13 | ED_ITS ---
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 Patient reports worsening shortness of breath or last 2 weeks pain Symptoms are worse with exertion or bending over and lying backwards He denies any chest pain or leg swelling He denies any fevers, chills He reports that he is prescribed an albuterol inhaler but does not carry a diagnosis of asthma or COPD as far as he knows Denies any recent travel or sick contacts Related Data Home Medications ?Medication ?Instructions ?Recorded ?Confirmed CPAP (CPAP Machine/Device) 06/24/23 01/15/24 Previous Rx's ?Medication ?Instructions ?Recorded blood-glucose meter (FreeStyle #1 ea 10/05/20 Lite Meter kit) blood sugar diagnostic (FreeStyle #100 ea 01/05/23 Lite Strips) gabapentin 100 mg capsule 100 mg PO BEDTIME 30 days #30 caps 03/07/23 Ventolin HFA 90 mcg/actuation 2 puff PO Q6H PRN for wheezing #18 04/03/23 aerosol inhaler (albuterol sulfate) ea furosemide 40 mg tablet 40 mg PO DAILY 90 days #90 tabs 05/28/23 pen needle, diabetic 32 gauge x #120 ea 07/18/23 trazodone 50 mg tablet 50 mg PO BEDTIME 90 days #90 tabs 08/03/23 metformin 1,000 mg tablet 1,000 mg PO BID 90 days #180 tabs 09/07/23 rosuvastatin 40 mg tablet 40 mg PO DAILY #90 tabs 10/05/23 losartan 25 mg tablet 25 mg PO DAILY 90 days #90 tabs 11/14/23 cholecalciferol (vitamin D3) 50 50 mcg PO DAILY 90 days #90 caps 11/18/23 mcg (2,000 unit) capsule dulaglutide 4.5 mg/0.5 mL 4.5 mg (0.5 mL) subcut QWEEK 90 11/18/23 subcutaneous pen injector days #6.5 mL (Trulicity) insulin aspart U-100 100 unit/mL 35 unit (0.35 mL) subcut TID 30 11/18/23 (3 mL) subcutaneous pen (Novolog days #31.5 mL FlexPen U-100 Insulin aspart) aspirin 81 mg tablet,delayed 81 mg PO DAILY #90 tabs 11/30/23 release (Enteric Coated Aspirin) meclizine 12.5 mg tablet 12.5 mg PO Q12H PRN for dizziness 12/10/23 #30 tabs amlodipine 5 mg tablet 5 mg PO DAILY #90 tabs 12/14/23 metoprolol succinate 100 mg 100 mg PO DAILY #90 tabs 12/14/23 tablet,extended release 24 hr pramipexole 0.5 mg tablet 0.5 mg PO DAILY #90 tabs 12/14/23 flash glucose scanning reader #1 ea 01/01/24 (FreeStyle Manjit 14 Day [place]) flash glucose scanning reader #1 ea 01/01/24 (FreeStyle Manjit 2 [place]) flash glucose sensor (FreeStyle #2 ea 01/01/24 Manjit 14 Day Sensor kit) fluticasone fur. 100 mcg-umeclid 1 inh inhalation DAILY 28 days #28 01/01/24 62.5 mcg-vilant 25 mcg ea inhalat.powder (Trelegy Ellipta) insulin glargine U-300 conc 300 85 unit (0.2833 mL) subcut DAILY 01/01/24 unit/mL (3 mL) subcutaneous pen 90 days #25.497 mL (Toujeo Max U-300 SoloStar) cyclobenzaprine 10 mg tablet 10 mg PO BEDTIME PRN muscle spasm 01/15/24 7 days #7 tabs famotidine 20 mg tablet 20 mg PO BEDTIME for heartburn 90 01/19/24 days #90 tabs galantamine 8 mg 24 hr 8 mg PO QAM #90 caps 01/19/24 capsule,extended release blood-glucose meter,continuous #1 ea 02/10/24 (FreeStyle Manjit 3 [place]) blood-glucose sensor (FreeStyle #1 ea 02/10/24 Manjit 3 Sensor device) azithromycin 250 mg tablet 250 mg PO DAILY 4 days #4 tabs 02/12/24 prednisone 20 mg tablet 40 mg (2 x 20 mg) PO DAILY #8 tabs 02/12/24 Allergies Allergy/AdvReac Type Severity Reaction Status Date / Time Penicillins Allergy Intermediate ITCHING Verified 02/12/24 09:23 Review of Systems 2 Constitutional: Constitutional: Denies body ache(s), Denies chills, Denies fever(s) and Denies headache(s) Eyes: Eyes: Denies blurry vision ENT: Denies dysphagia, Denies vertigo, Denies dizziness and Denies headache(s) Cardiovascular: Cardiovascular: Denies chest pain, Reports dyspnea, Reports dyspnea on exertion and Reports orthopnea Respiratory: Respiratory: Denies pain with cough, Reports dyspnea and Reports dyspnea on exertion Gastrointestinal: Gastrointestinal: Denies abdominal pain, Denies dysphagia, Denies nausea and Denies vomiting Musculoskeletal: Musculoskeletal: Denies back pain Integumentary/Breasts: Skin/Breast: Denies rash Neurologic: Denies vertigo, Denies dizziness and Denies headache(s) Psychiatric: Psychiatric: Denies anxiety [facility] [place] Past Medical History Medical History Chronic heart failure with preserved ejection fraction (HFpEF) Cardiomyopathy Hypoglycemia due to type 2 diabetes mellitus Acute on chronic systolic (congestive) heart failure Defibrillator discharge Hospital discharge follow-up CHF (congestive heart failure) ROE (obstructive sleep apnea) Hypothyroidism Reactive airway disease [id number] syndrome Obesity due to excess calories ROE (obstructive sleep apnea) ROE on CPAP Ischemic cardiomyopathy Atherosclerotic cardiovascular disease GERD (gastroesophageal reflux disease) Hypothyroidism Type 2 diabetes mellitus with hyperglycemia, with long-term current use of insulin Type 2 diabetes mellitus with diabetic polyneuropathy Essential hypertension Chronic systolic (congestive) heart failure ICD (implantable cardioverter-defibrillator) in place HTN (hypertension) CAD (coronary artery disease) Hyperlipidemia LDL goal <70 Dyspnea Bibasilar crackles Sleep apnea Insomnia Delusion of persecution Surgical History H/O inguinal hernia repair History of tooth extraction Hx of CABG (~2019) History of open heart surgery History of bilateral cataract extraction Family History Family History Father No problems noted. Mother CVD (cardiovascular disease) Social History Social History Household Members: Spouse Housing: Apartment Alcohol intake: former Patient Tobacco Use Status: Never used Tobacco Smoked in Last 30 Days: No e-Cigarette/Vaping Use: Never Used Second Hand Smoke Exposure: No Use of substances other than those prescribed or required for medical reasons: No Advance Directives: No Advance Directives Information Provided: No service: No Current occupational status: retired Cognitive needs: Yes Hearing needs: No Vision needs: Yes Physical Exam ED Vital Signs: Vital Signs - 24 hr 02/12/24 09:21 02/12/24 16:00 02/12/24 18:03 Temperature 97.3 F 98.4 F 97.8 F Pulse Rate 71 65 66 Respiratory Rate 16 20 18 Blood Pressure 133/73 126/61 121/62 Pulse Oximetry 93 91 L 92 Oxygen Delivery Method Room Air Room Air Room Air 02/12/24 18:16 Temperature Pulse Rate 66 Respiratory Rate 18 Blood Pressure Pulse Oximetry Oxygen Delivery Method BMI result Body Mass Index 31.3 Const General: healthy appearing, comfortable, no acute distress, alert and awake Nutritional Appearance: well nourished Orientation/consciousness: patient oriented x3 HENMT Head: Yes normocephalic and Yes atraumatic Eyes Eyelids: Yes eyelids normal Conjunctivae: conjunctivae normal Sclerae: sclerae normal Corneas: corneas normal Pupils: Equal, round and reactive pupils present EOM: EOMs intact bilaterally Neck Neck: Yes full ROM Resp Other: Diminished breath sounds throughout, bibasilar wheezing mostly expiratory Effort & Inspection: normal respiratory effort, able to speak in complete sentences and not labored Cardio Other: No lower extremity edema GI Inspection: No distended Skin General skin exam: elasticity normal Neuro General: patient oriented x3 Cranial nerves: Yes Equal, round and reactive pupils present and Yes Bilaterally intact EOM present Cognition (Neuro): normal cognition Extrem Other: Moving all extremities well without any obvious deformities Course Reevaluation(s) Reevaluation #1: Patient reports he is able to walk around the entire department without any difficulty he reports feeling much better, plan for discharge with azithromycin and prednisone continue inhalers Time: 19:21 Medications Administered Discontinued Medications Generic Name Dose Route Start Last Admin Trade Name Freq PRN Reason Stop Dose Admin Albuterol/Ipratropium 3 ml 02/12/24 18:01 02/12/24 18:13 Albuterol/Iprat 2.5/0.5mg 3 Ml Ampul.Neb INHALE 02/12/24 18:02 3 ml ONCE ONE Administration Azithromycin 500 mg 02/12/24 18:01 02/12/24 18:13 Azithromycin 500 Mg Tablet PO 02/12/24 18:02 500 mg ONCE ONE Administration Prednisone 60 mg 02/12/24 18:01 02/12/24 18:13 Prednisone 20 Mg Tablet PO 02/12/24 18:02 60 mg ONCE ONE Administration Medical Decision Making Medical Decision Making [facility] Narrative: 73-year-old male past medical history as documented above presents for evaluation of shortness of breath with 2 weeks. His oxygen saturation is 92% on room air, he does have wheezing on exam. There are no crackles or lower extremity edema to suggest heart failure. Most likely diagnosis is reactive airway disease. His chest x-ray shows right sided platelike atelectasis but no focal infiltrates or pleural effusions either. Plan to treat with DuoNeb, p.o. azithromycin steroids. No fever to suggest pneumonia. He does have a slight leukocytosis. Viral swab is pending Differential Diagnosis Differential Diagnoses: The differential diagnosis associated with the presentation includes Reactive airway disease Asthma exacerbation Pneumonia Bronchitis CHF Heart failure Admission/Observation Consideration of admission/observation: Escalation of care including admission/observation considered Consider admission but the patient was never hypoxic below 90% and improved with treatment Lab Data [facility] Lab Attestation statement: I reviewed the patient's lab results. Slight leukocytosis with a left shift. The patient does have a chronic anemia and is consistent with his baseline. Electrolytes are within normal limits, the patient does have ALPESH with a creatinine of 1.88 and a BUN of 31, these are both consistent his baseline. The patient has known diabetes the random glucose of 305. He has no increased anion gap or evidence of acidosis to suggest DKA 02/12/24 09:35 02/12/24 09:35 Labs: Lab Results 02/12/24 02/12/24 Range/Units 09:35 17:53 WBC 12.1 H (4.8-10.8) X10*3/uL RBC 4.63 (4.60-5.80) X10*6/uL Hgb 13.6 L (14.0-18.0) g/dl Hct 41.5 L (42.0-52.0) % MCV 89.6 (80.0-98.0) fL MCH 29.4 (27.0-33.0) pg MCHC 32.8 (31.0-36.0) g/dl RDW 14.5 (11.0-16.0) % Plt Count 238 (160-400) X10*3/uL MPV 9.8 (9.4-12.4) fL Immature Gran % (Auto) 0.3 (0.0-0.4) % Neut % (Auto) 69.2 (45-73) % Lymph % (Auto) 16.0 L (20-40) % [place] % (Auto) 8.0 (2-11) % Eos % (Auto) 5.9 H (0-4) % Baso % (Auto) 0.6 (0-2) % Lymph # (Auto) 1.9 (1.2-4.9) X10*3/uL [place] # (Auto) 1.0 (0.1-1.2) X10*3/uL Eos # (Auto) 0.7 H (0.0-0.4) X10*3/uL Baso # (Auto) 0.1 (0.0-0.2) X10*3/uL Abs Immat Gran (auto) 0.04 H (0.00-0.03) X10*3/uL Absolute Neuts (auto) 8.4 H (2.0-8.3) x10*3/uL Absolute Nucleated RBC 0.000 (0.0-0.012) X10*3/uL Nucleated RBC % (auto) 0.0 (0.0-0.2) /100WBC Sodium 137 (135-145) mmol/L Potassium 4.2 (3.3-5.1) mmol/L Chloride 98 (96-108) mmol/L Carbon Dioxide 26 (22-29) mmol/L Anion Gap 17 (12-20) BUN 31 H (9-16) mg/dL Creatinine 1.88 H (0.5-1.4) mg/dL Estim Creat Clear Calc 36.4 Estimated GFR 35 Random Glucose 305 H (60-115) mg/dL Calcium 9.2 D (8.4-10.2) mg/dL Troponin I High Sens 5.2 (<3.5-35.0) ng/L B-Natriuretic Peptide 78 (<100) pg/mL Influenza Type A (PCR) NEGATIVE (Negative) Influenza Type B (PCR) NEGATIVE (Negative) RSV RNA Qual (PCR) NEGATIVE (Negative) SARS-CoV-2 RNA (RT-PCR) NEGATIVE (Negative) Independent Interpretation I performed an independent interpretation of an: EKG (Normal sinus rhythm with a rate of 70 beats per minute. No ST segment changes) and Plain X-Ray (Agree with Radiology interpretation) Radiology Impression Discussion of test interpretation with radiology: I have reviewed the radiologist's reading. Radiologist Impression: XR/XR chest 1V IMPRESSION: New right basilar atelectasis. Recommend follow-up PA lateral when clinically feasible. Prescription Management I considered prescription management with: Antibiotic Chronic Conditions Patient?s care impacted by: Diabetes and Hypertension Discharge Plan Discharge Clinical Impression: Dyspnea Patient Disposition: Home, Self-Care Instructions: Dyspnea (ED) Additional Instructions: Your workup in the ER today was reassuring. Continue your inhalers as prescribed. Take prednisone 40 mg daily for the next 4 days starting tomorrow Take azithromycin daily starting tomorrow for 4 days as well Your 1st doses of both medications were given in the ER Check your blood sugars frequently while taking prednisone as they may increase Return for new or worsening symptoms Prescriptions: New prednisone 20 mg tablet 40 mg PO DAILY Qty: 8 0RF azithromycin 250 mg tablet 250 mg PO DAILY 4 Days Qty: 4 0RF Rx Instructions: start on day 2 of therapy No Action (DME) blood-glucose meter [FreeStyle Lite Meter] Kit See Rx Instructions .ROUTE .MEDSUPPLY Qty: 1 0RF Rx Instructions: As directed (DME) FreeStyle Lite Strips Strip See Rx Instructions .Route Qty: 100 11RF Rx Instructions: As directed 4 times a day albuterol sulfate [Ventolin HFA] 90 mcg/actuation HFA aerosol inhaler 2 puff PO Q6H PRN (Reason: for wheezing) Qty: 18 5RF trazodone 50 mg tablet 50 mg PO BEDTIME 90 Days Qty: 90 2RF metformin 1,000 mg tablet 1,000 mg PO BID 90 Days Qty: 180 1RF rosuvastatin 40 mg tablet 40 mg PO DAILY Qty: 90 1RF losartan 25 mg tablet 25 mg PO DAILY 90 Days Qty: 90 0RF aspirin [Enteric Coated Aspirin] 81 mg tablet,delayed release (DR/EC) 81 mg PO DAILY Qty: 90 0RF meclizine 12.5 mg tablet 12.5 mg PO Q12H PRN (Reason: for dizziness) Qty: 30 0RF amlodipine 5 mg tablet 5 mg PO DAILY Qty: 90 0RF metoprolol succinate 100 mg tablet extended release 24 hr 100 mg PO DAILY Qty: 90 0RF pramipexole 0.5 mg tablet 0.5 mg PO DAILY Qty: 90 0RF galantamine 8 mg capsule,ext rel. pellets 24 hr 8 mg PO QAM Qty: 90 1RF famotidine 20 mg tablet 20 mg PO BEDTIME 90 Days Qty: 90 1RF (DME) FreeStyle Manjit 3 [place] Misc See Rx Instructions .Route Qty: 1 11RF Rx Instructions: As directed (DME) FreeStyle Manjit 3 Sensor Device See Rx Instructions .Route Qty: 1 0RF Rx Instructions: As directed furosemide 40 mg tablet 40 mg PO DAILY 90 Days Qty: 90 1RF gabapentin 100 mg capsule 100 mg PO BEDTIME 30 Days Qty: 30 3RF (DME) FreeStyle Manjit 14 Day Sensor Kit See Rx Instructions .Route Qty: 2 11RF Rx Instructions: As directed every 14 days (DME) FreeStyle Manjit 2 [place] Misc See Rx Instructions .Route Qty: 1 11RF Rx Instructions: As directed (DME) FreeStyle Manjit 14 Day [place] Misc See Rx Instructions .Route Qty: 1 0RF Rx Instructions: As directed Toujeo Max U-300 SoloStar 300 unit/mL (3 mL) insulin pen 85 unit subcut DAILY 90 Days Qty: 25.497 3RF Trelegy Ellipta 100-62.5-25 mcg blister with device 1 inh inhalation DAILY 28 Days Qty: 28 6RF (DME) pen needle, diabetic 32 gauge x 5/32 needle See Rx Instructions subcut .MEDSUPPLY Qty: 120 3RF Rx Instructions: 4 times a day As directed cholecalciferol (vitamin D3) 50 mcg (2,000 unit) capsule 50 mcg PO DAILY 90 Days Qty: 90 1RF Trulicity 4.5 mg/0.5 mL pen injector 4.5 mg subcut QWEEK 90 Days Qty: 6.5 3RF insulin aspart U-100 [Novolog FlexPen U-100 Insulin] 100 unit/mL (3 mL) insulin pen 35 unit subcut TID 30 Days Qty: 31.5 6RF cyclobenzaprine 10 mg tablet 10 mg PO BEDTIME PRN (Reason: muscle spasm) 7 Days Qty: 7 0RF (DME) CPAP Machine/Device Device See Rx Instructions .Route Rx Instructions: As directed Print Language: French
[2024-02-12 18:16] VITALS: PULSE 66; RESP 18; O2SAT 92
[2024-02-12 18:40] LABS: Influenza A PCR NEGATIVE (Negative); Influenza B PCR NEGATIVE (Negative); Resp Syncy Virus RNA Qual PCR NEGATIVE (Negative); SARS COV2 PCR INHOUSE NEGATIVE (Negative)
--- NOTE | 2024-02-12 19:01 | MHC.EDTECH ---
pt ambulated around ED, 02 sat was 88%-93%, SUSAN Jett notified.
[2024-02-12 19:34] VITALS: BP 123/64; PULSE 67; RESP 19; TEMP 36.3; O2SAT 93
[2024-02-12 19:54] VITALS: BP 123/64; PULSE 67; RESP 19; TEMP 36.3; O2SAT 93
== END 2024-02-12 19:54 | disposition home or self-care (01) ==
PROVIDERS: Physician Assistant Medical; Emergency Provider Internal Medicine; PCP Internal Medicine
DX: R06.02 Shortness of breath (principal); R07.89 Other chest pain; Z03.818 Encounter for observation for suspected exposure to other biological agents ruled out; Z79.899 Other long term (current) drug therapy
CPT/HCPCS: 0241U; 36415; 71045; 80048; 83880; 84484; 85025; 93005; 99284; 99285

== ENCOUNTER → 2024-02-12 09:26 | Outpatient (BNV) | payer OTHER, SELFPAY | PROVIDERS: PCP Internal Medicine; Visit Provider Internal Medicine Cardiovascular Disease | DX: R06.02 Shortness of breath (principal) | CPT/HCPCS: 93010 ==

== ENCOUNTER 2024-02-20 15:09 | Outpatient (AMB) | payer OTHER, SELFPAY ==
--- NOTE | 2024-02-20 15:10 | A.OFFVIS_ITS ---
Vital Signs 02/20/24 15:12 Height 5 ft 7 in Weight 209 lb 7.026 oz BMI 32.8 BP 126/80 Blood Pressure Location Rt brachial Position Sitting Pulse 87 Pulse Source Pulse Oximeter Intake Visit Reasons: Type 2 DM- confirmed Intake Note: New Patient presents today to established treatment for Type 2 Diabetes Mellitus: Last Diabetic Eye Exam: DUE Last Podiatry Exam- Does not see a Food Technologist Random Glucose- 211 mg/dL, Today Most recent HbA1c- 11.9 %, 02/20/2024 Firer Boiler Required: Yes Firer Boiler Language: Picture Booker Services: Firer Boiler Present Firer Boiler Name: OREN Whittaker/ALEX ORNELAS Information Interpreted: non-clinical & clinical Accompanied by: Self / Same As Patient Allergies Penicillins Allergy (Intermediate, Verified 02/20/24 15:11) ITCHING HPI Comments Details: [73] YO [M/F] who is seen in consultation for T2DM at the request of PCP. Most recent A1C 11/18/23 10.9%, 07/18/23 9.5% C Initially diagnosed with T2DM approx 30 years ago. On insulin last six years. Current regimen: toujeo 85 units l Freestyle manjit sensor [3 ] average glucose: [267 ] Glucose Management indicator [9.7%] TIme in range: [48] % very high (above 250) Eighteen % high (181-250) 22 % in range (70-180] 6 % low (69-55) 6 % very low (below 54) Sensor shows trends of low from 3a-8p, highs from 12pm-past bedtime Reports low sugars [yes]. Treats lows with [juice]. [Checks] sugar after to ensure it is rising. [Treats] according to rule of 15's. Has eyes checked every six months [Denies ] neuropathy does not see podiatry [Denies] nephropathy, on [MORIS/ARB]. UAC [] as measured on []. [Has] HLD, on [statin]. Last LDL [] as measured on []. Has multiple cardiac co morbidities. [facility] Medical History (Updated 02/21/24 @ 17:46 by Sera Gross NP) Type 2 diabetes mellitus Chronic heart failure with preserved ejection fraction (HFpEF) Cardiomyopathy Hypoglycemia due to type 2 diabetes mellitus Acute on chronic systolic (congestive) heart failure Defibrillator discharge Hospital discharge follow-up CHF (congestive heart failure) ROE (obstructive sleep apnea) Hypothyroidism Reactive airway disease [id number] syndrome Obesity due to excess calories ROE (obstructive sleep apnea) ROE on CPAP Ischemic cardiomyopathy Atherosclerotic cardiovascular disease GERD (gastroesophageal reflux disease) Hypothyroidism Type 2 diabetes mellitus with hyperglycemia, with long-term current use of insulin Type 2 diabetes mellitus with diabetic polyneuropathy Essential hypertension Chronic systolic (congestive) heart failure ICD (implantable cardioverter-defibrillator) in place HTN (hypertension) CAD (coronary artery disease) Hyperlipidemia LDL goal <70 Dyspnea Bibasilar crackles Sleep apnea Insomnia Delusion of persecution Surgical History H/O inguinal hernia repair History of tooth extraction Hx of CABG (~2019) History of open heart surgery History of bilateral cataract extraction Family History Father No problems noted. Mother CVD (cardiovascular disease) Social History Household Members: Spouse Housing: Apartment Alcohol intake: former Patient Tobacco Use Status: Never used Tobacco e-Cigarette/Vaping Use: Never Used Second Hand Smoke Exposure: No service: No Current occupational status: retired Cognitive needs: Yes Hearing needs: No Vision needs: Yes Physical Exam Vital Signs: Last Vital Signs Pulse 87 02/20/24 15:12 BP 126/80 02/20/24 15:12 BMI result Body Mass Index 32.8 Absence of Cushingoid features. Absence of acromegalic features. Neck exam reveals nl size thyroid about 15 gms. No thyroid nodules palpable. No carotid bruits present. Lungs CTA. Heart S1 S2, Reg R/R. No M/R/ G. Skin exam reveals absence of vitiligo or acanthosis nigricans. Abdominal exam reveals Soft NT/ND with NA BS. No organomegaly present. Const Other: Absence of Cushingoid features. Absence of acromegalic features. Neck exam reveals nl size thyroid about 15 gms. No thyroid nodules palpable. No carotid bruits present. Lungs CTA. Heart S1 S2, Reg R/R. No M/R G. Skin exam reveals absence of vitiligo or acanthosis nigricans. Neck Other: . Extrem Other: Visual exam of foot performed. No ulcerations or open lesions. No onchomycosis, no callouses.Pulses 2 + distally Sensation intact to monofilament exam. Vibratory sensation sensed is intact with 128 Hz tuning fork Results AMB Hemoglobin A1c AMB Hemoglobin A1c 11.9 % Last Edit by OREN Whittaker on 02/20/24 16:0 6 Results Reviewed Results Reviewed: Laboratory Last Values Glucose (Clinic) 211 mg/dL (60-115) H 02/20/24 15:23 Hgb A1c (Clinic) 11.9 % (4.0-6.0) H 02/20/24 16:05 Assessment & Plan Assessment & Plan (1) Type 2 diabetes mellitus: Code(s): E11.9 - Type 2 diabetes mellitus without complications Category: Medical Plan: TYpe 2 diabetes with poor control. We will continue Trulicity and metformin. Change insulin to degludec 90 units. Change short-acting dosing to breakfast 35 units lunch 40 units dinner 35 units. He will get started on a freestyle Manjit 3 Patient teaching: The patient was counseled to achieve a target A1C of 7% (154 avg). Fasting blood sugars should be 90-130 in the morning and less than 180 two hours after meals. Reviewed the relationship between poor diabetic control and the developement of complications The patient was counseled to always carry a source of sugar and on the rule of 15's: Take 3 glucose tablets and repeat again in 15 minutes if blood sugar is not in normal range. Continue to repeat every 15 minutes until blood sugar is normal. The patient was counseled to wear closed toe shoes, never walk barefooted and to inspect the feet daily. For any signs of infection or open wound patient should notify PCP or go to urgent care. case was discussed with Dr. Cervantes. Orders: Orders Vitamin D 25-OH Total 02/20/24 E55.9 - Vitamin D deficiency, unspecified Liver Panel 02/20/24 E66.01 - Morbid (severe) obesity due to excess calories, Z68.36 - Body mass index [BMI] 36.0-36.9, adult Testosterone, Free/Total Today E11.65 - Type 2 diabetes mellitus with hyper glycemia, Z79.4 - manager intermediate (current) use of insulin AMB Hemoglobin A1c 02/20/24 E11.9 - Type 2 diabetes mellitus without complications Medications: New insulin degludec (Tresiba FlexTouch U-200 insulin) 90 units (0.45 mL) subcut BEDTIME 30 days 13.5 mL 2RF E11.65 - Type 2 diabetes mellitus with hyperglycemia, Z79.4 - manager intermediate (current) use of insulin insulin aspart U-100 (Novolog FlexPen U-100 Insulin aspart) Breakfast 35 units Lunch 40 units Supper 35 units 1 sliding scale dose subcut USEASDIRECTD 15 mL 3RF E11.65 - Type 2 diabetes mellitus with hyperglycemia, Z79.4 - jail (current) use of insulin Discontinued flash glucose sensor (FreeStyle Manjit 14 Day Sensor kit) Discontinued Reason: Doctor's Order As directed every 14 days 2 ea 11RF insulin glargine U-300 conc (Toujeo Max U-300 [place]) Discontinued Reason: Doctor's Order 85 units (0.2833 mL) subcut DAILY 90 days 25.497 mL 3RF E11.42 - Type 2 diabetes mellitus with diabetic polyneuropathy, Z79.4 - jail (current) use of insulin insulin aspart U-100 (Novolog FlexPen U-100 Insulin aspart) Discontinued Reason: Doctor's Order 35 units (0.35 mL) subcut TID 30 days 31.5 mL 6RF E11.42 - Type 2 diabetes mellitus with diabetic polyneuropathy flash glucose scanning reader (FreeStyle Manjit 2 [place]) Discontinued Reason: Doctor's Order As directed 1 ea 11RF E11.65 - Type 2 diabetes mellitus with hyperglycemia, Z79.4 - jail (current) use of insulin flash glucose scanning reader (FreeStyle Manjit 14 Day [place]) Discontinued Reason: Doctor's Order As directed 1 ea 0RF Coding Level of Care Code New Pt Level 5 (91643) Complex EM visit Add On G2211 Diagnoses Type 2 diabetes mellitus E11.9
[2024-02-20 15:12] VITALS: BP 126/80; PULSE 87; BMI 32.8
[2024-02-20 15:28] LABS: Glucose, Whole Blood 211 mg/dL (60-115)
== END 2024-02-20 15:53 | disposition home or self-care (01) ==
PROVIDERS: PCP Internal Medicine; Visit Provider Nurse Practitioner Adult Health
DX: E11.9 Type 2 diabetes mellitus without complications (principal)
CPT/HCPCS: 99204; G2211

== ENCOUNTER → 2024-02-20 15:09 | Outpatient (BNVA) | payer OTHER, SELFPAY | PROVIDERS: PCP Internal Medicine; Visit Provider Nurse Practitioner Adult Health | DX: E11.42 Type 2 diabetes mellitus with diabetic polyneuropathy (principal); E11.65 Type 2 diabetes mellitus with hyperglycemia; E55.9 Vitamin D deficiency, unspecified; E66.01 Morbid (severe) obesity due to excess calories; Z68.36 Body mass index [BMI] 36.0-36.9, adult | CPT/HCPCS: 82947; 83036; 99202 ==

== ENCOUNTER → 2024-02-24 23:59 | Outpatient (BNV) | payer OTHER, SELFPAY ==
--- NOTE | 2024-02-29 14:22 | MHC.OFFVIS ---
Intake Visit Reasons: Remote HF monitoring- [employer] Allergies Penicillins Allergy (Intermediate, Verified 02/20/24 15:11) ITCHING [facility] Medical History (Updated 02/21/24 @ 17:46 by Sera Gross NP) Type 2 diabetes mellitus Chronic heart failure with preserved ejection fraction (HFpEF) Cardiomyopathy Hypoglycemia due to type 2 diabetes mellitus Acute on chronic systolic (congestive) heart failure Defibrillator discharge Hospital discharge follow-up CHF (congestive heart failure) ROE (obstructive sleep apnea) Hypothyroidism Reactive airway disease [id number] syndrome Obesity due to excess calories ROE (obstructive sleep apnea) ROE on CPAP Ischemic cardiomyopathy Atherosclerotic cardiovascular disease GERD (gastroesophageal reflux disease) Hypothyroidism Type 2 diabetes mellitus with hyperglycemia, with long-term current use of insulin Type 2 diabetes mellitus with diabetic polyneuropathy Essential hypertension Chronic systolic (congestive) heart failure ICD (implantable cardioverter-defibrillator) in place HTN (hypertension) CAD (coronary artery disease) Hyperlipidemia LDL goal <70 Dyspnea Bibasilar crackles Sleep apnea Insomnia Delusion of persecution Surgical History H/O inguinal hernia repair History of tooth extraction Hx of CABG (~2019) History of open heart surgery History of bilateral cataract extraction Family History Father No problems noted. Mother CVD (cardiovascular disease) Social History Household Members: Spouse Housing: Apartment Alcohol intake: former Patient Tobacco Use Status: Never used Tobacco e-Cigarette/Vaping Use: Never Used Second Hand Smoke Exposure: No service: No Current occupational status: retired Cognitive needs: Yes Hearing needs: No Vision needs: Yes Office Procedures Cardiac Device Check Cardiac Device Check Details: Date of service- 02/24/2024; based on impedance data and physiological variables, there is no evidence of worsening congestive heart failure. [id number] Cardiac Device Interrogation, cardio physiologic monitor Procedure code (CPT) selection complete Assessment & Plan Assessment & Plan (1) Ischemic cardiomyopathy: Code(s): I25.5 - Ischemic cardiomyopathy Category: Medical Plan x Coding Level of Care Code Procedure Only Diagnoses Ischemic cardiomyopathy I25.5 CPT Codes Cardiac Device Check - Cardiac Device 15: [id number] Cardiac Device Interrogation, cardio physiologic monitor ([id number])
== END ==
PROVIDERS: PCP Internal Medicine; Visit Provider Internal Medicine
DX: I25.5 Ischemic cardiomyopathy (principal); Z95.0 Presence of cardiac pacemaker
CPT/HCPCS: 93297

== ENCOUNTER 2024-02-27 09:56 | Outpatient (REF) | payer OTHER, SELFPAY ==
[2024-02-27 10:16] LABS: MANUAL DIFF FLAG NO
[2024-02-27 11:43] LABS: Basophils Absolute Auto 0.1 X10*3/uL (0.0-0.2); Basophils Percent Auto 0.6 % (0-2); Eosinophils Absolute Auto 0.6 X10*3/uL (0.0-0.4); Eosinophils Percent Auto 5.1 % (0-4); Hematocrit 42.8 % (42.0-52.0); Hemoglobin 14.2 g/dl (14.0-18.0); Imm Gran Abs Auto 0.05 X10*3/uL (0.00-0.03); Imm Gran Pct Auto 0.4 % (0.0-0.4); Lymphocytes Absolute Auto 1.7 X10*3/uL (1.2-4.9); Lymphocytes Percent Auto 13.6 % (20-40); Mean Corpuscular HGB Conc 33.2 g/dl (31.0-36.0); Mean Corpuscular Hemoglobin 29.6 pg (27.0-33.0); Mean Corpuscular Volume 89.4 fL (80.0-98.0); Mean Platelet Volume 10.5 fL (9.4-12.4); Monocytes Percent Auto 8.4 % (2-11); Neutrophils Absolute Auto 8.9 x10*3/uL (2.0-8.3); Neutrophils Percent Auto 71.9 % (45-73); Platelet Count 218 X10*3/uL (160-400); Red Blood Count 4.79 X10*6/uL (4.60-5.80); Red Cell Distribution Width 14.2 % (11.0-16.0); White Blood Count 12.3 X10*3/uL (4.8-10.8)
[2024-02-27 12:18] LABS: Creatinine Urine 188.28 mg/dL
[2024-02-27 12:31] LABS: Alanine Aminotransferase 21 U/L (0-40); Albumin Level 3.7 g/dL (3.5-5.0); Alkaline Phosphatase 69 U/L (39-117); Anion Gap 14 (12-20); Aspartate Amino Transferase 19 U/L (5-37); Bilirubin Direct 0.1 mg/dL (0.0-0.5); Bilirubin Total 0.4 mg/dL (0.0-1.0); Blood Urea Nitrogen 32 mg/dL (9-16); Calcium 9.4 mg/dL (8.4-10.2); Carbon Dioxide 29 mmol/L (22-29); Chloride 102 mmol/L (96-108); Cholesterol 148 mg/dL (<200); Estimated Glomerular Filt Rate 38; Glucose Fasting 244 mg/dL (60-99); HDL Cholesterol 37 mg/dL (>40); Iron 68 mcg/dL (45-160); LDL Cholesterol Calculated 68 mg/dL (<100); Percent Iron Saturation 24 % (15-50); Potassium 5.4 mmol/L (3.3-5.1); Sodium 140 mmol/L (135-145); Thyroid Stimulating Hormone 2.85 uIU/mL (0.32-4.0); Total Iron Binding Capacity 287 mcg/dL (228-428); Total Protein 7.1 g/dL (6.5-8.0); Triglycerides 217 mg/dL (<150); Unsaturated Iron Binding 219 ug/dL
[2024-02-27 12:35] LABS: Vitamin D 25-OH Total 43.7 ng/mL (>30)
[2024-02-27 12:39] LABS: Microalbum/Creatinine Ratio Ur 1062.2 ug/mg cr (<30); Microalbumin Urine > 2000.0 mg/L
[2024-02-27 12:43] LABS: Folate 8.8 ng/mL (> or = 4.0); Vitamin B12 483 pg/mL (200-900)
[2024-03-05 05:09] LABS: NT-proBNP 238 pg/mL (<450)
== END 2024-02-27 09:57 | disposition home or self-care (01) ==
LOC: HO.LAB 09:56
PROVIDERS: PCP Internal Medicine; Visit Provider Nurse Practitioner Adult Health
DX: N18.32 Chronic kidney disease, stage 3b (principal); E55.9 Vitamin D deficiency, unspecified; E11.65 Type 2 diabetes mellitus with hyperglycemia; Z79.4 Long term (current) use of insulin; E03.9 Hypothyroidism, unspecified; E11.9 Type 2 diabetes mellitus without complications; E53.8 Deficiency of other specified B group vitamins; D64.9 Anemia, unspecified; I50.32 Chronic diastolic (congestive) heart failure; E78.5 Hyperlipidemia, unspecified
CPT/HCPCS: 36415; 80053; 80061; 80076; 82043; 82248; 82306; 82570; 82607; 82746; 83540; 83880; 84402; 84403; 84443; 85025; 99211

== ENCOUNTER 2024-02-27 12:55 | Outpatient (AMB) | payer OTHER, SELFPAY ==
--- NOTE | 2024-02-27 13:07 | MHC.AMDMED ---
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 Name: [id number] Accompanied by: Spouse Allergies Penicillins Allergy (Intermediate, Verified 02/20/24 15:11) ITCHING HPI Comprehensive Diabetes Asmnt Most Recent Diabetes Results: Microalb/Creat Ratio 1062.2 ug/mg cr (<30) H 02/27/24 Cholesterol 148 mg/dL (<200) 02/27/24 HDL Cholesterol 37 mg/dL (>40) L 02/27/24 Triglycerides 217 mg/dL (<150) H 02/27/24 Creatinine 1.74 mg/dL (0.5-1.4) H 02/27/24 Blood Urea Nitrogen 32 mg/dL (9-16) H 02/27/24 Sodium 140 mmol/L (135-145) 02/27/24 Potassium 5.4 mmol/L (3.3-5.1) H 02/27/24 Chloride 102 mmol/L (96-108) 02/27/24 Carbon Dioxide 29 mmol/L (22-29) 02/27/24 Calcium 9.4 mg/dL (8.4-10.2) 02/27/24 AST 19 U/L (5-37) 02/27/24 ALT 21 U/L (0-40) 02/27/24 Total Protein 7.1 g/dL (6.5-8.0) 02/27/24 Albumin 3.7 g/dL (3.5-5.0) 02/27/24 [facility] Medical History (Updated 02/21/24 @ 17:46 by Sera Gross NP) Type 2 diabetes mellitus Chronic heart failure with preserved ejection fraction (HFpEF) Cardiomyopathy Hypoglycemia due to type 2 diabetes mellitus Acute on chronic systolic (congestive) heart failure Defibrillator discharge Hospital discharge follow-up CHF (congestive heart failure) ROE (obstructive sleep apnea) Hypothyroidism Reactive airway disease [id number] syndrome Obesity due to excess calories ROE (obstructive sleep apnea) ROE on CPAP Ischemic cardiomyopathy Atherosclerotic cardiovascular disease GERD (gastroesophageal reflux disease) Hypothyroidism Type 2 diabetes mellitus with hyperglycemia, with long-term current use of insulin Type 2 diabetes mellitus with diabetic polyneuropathy Essential hypertension Chronic systolic (congestive) heart failure ICD (implantable cardioverter-defibrillator) in place HTN (hypertension) CAD (coronary artery disease) Hyperlipidemia LDL goal <70 Dyspnea Bibasilar crackles Sleep apnea Insomnia Delusion of persecution Surgical History H/O inguinal hernia repair History of tooth extraction Hx of CABG (~2019) History of open heart surgery History of bilateral cataract extraction Family History Father No problems noted. Mother CVD (cardiovascular disease) Social History Household Members: Spouse Housing: Apartment Alcohol intake: former Patient Tobacco Use Status: Never used Tobacco e-Cigarette/Vaping Use: Never Used Second Hand Smoke Exposure: No service: No Current occupational status: retired Cognitive needs: Yes Hearing needs: No Vision needs: Yes Assessment & Plan Assessment & Plan (1) Type 2 diabetes mellitus: Code(s): E11.9 - Type 2 diabetes mellitus without complications Plan: Learning objectives: The patient was provided with verbal and written education on the following topics as outlined below. The patient met all learning objectives and was able to verbalize understanding and provide teach back of education topics discussed . The patient was provided with the opportunity to ask questions and all questions were answered. Patient Assessment Assess patient education level/literacy/barriers, patient can identify foods that he eats carbohydrate Patient questions/concerns, patient is A1c was 11.9% on 02/20/2024 Patient reports he is taking Toujeo 80 units, but will switch to Tresiba U 200 90 units tonight He reports he is also taking NovoLog 30 units at breakfast NovoLog 40 units for lunch 30 units for supper Then he stated he takes anywhere from 25 to 40 units at bedtime. Explained to patient this could be contributing to his morning hypoglycemia Reviewed with patient action of Tresiba, and NovoLog Patient is also on metformin 2000 mg daily Transitioning from Trulicity 4.5 mg to Mounjaro 5 mg weekly What is Diabetes? Pathophysiology How the body produces and uses insulin Identify type of DM Risk factors Signs of Diabetes Brief overview of Diabetes Management Monitoring blood sugar Following a meal plan Regular exercise Maintaining a healthy weight Taking medication as needed Members of the care team (PCP, RN, MA, RD, CDE, research center partner) Blood glucose monitoring When/how often to test Target blood sugar ranges Manjit 2 CGM Average glucose for the past 14 days 332 mg/dL Patient above target 82% Patient below target 5% Patient at target 13% Patient having extreme downward excursion overnight, this may be related to patient taking extra dose of Humalog before bed Introduction to Nutrition Importance of healthy diet in managing DM Diet is personalized to individual preference Review patient?s regular diet/food preferences Who prepares meals/does food shopping/ Dining out?/ Barriers? How diet effects glucose Eating 3 balanced meals a day with small, healthy snacks between meals Review food groups Carbohydrates: What is a carbohydrate/Which food/food groups are considered carbohydrates Effect of carbohydrates on blood glucose Portion sizes Reading food labels Basic carb counting (if applicable per nursing assessment) Plate method Meal planning Recommendations: Follow plate method, consistent carbs and read nutritional labels. Smart Goal: Identified foods in your diet that contain carbohydrate Educational Materials: The patient was provided with the following written educational materials: Planning Healthy Meals, how to treat hypoglycemia Handouts in Vietnamese Patient Response to instructions: Comprehension of Instructions: Fair Readiness to make changes: Contemplation How confident they feel about making changes: fair Portions of this note were created using voice recognition software, please excuse any words or phrases that may have been misinterpreted. Patient Instructions: Incluir actividad diaria regular. ADA recomienda 30 minutos de ejercicio 5 d?as a la semana. P?rdida de peso, hable con el PCP o el cardi?logo antes de comenzar un nuevo plan. Mida el nivel de az?car en la candi seg?n las indicaciones; Ayuno y comida m?s soco de 2hpp. Observe las tendencias en los resultados. Utilice los resultados y eval?e c?mo los alimentos, la actividad f?[place] y los medicamentos afectan los resultados de az?car en la candi. Lleve el gluc?metro o CGM a la pr?xima visita. Conocer los medicamentos para la diabetes, mccord acci?n, los efectos secundarios, la eficacia, la toxicidad, la dosis prescrita, el momento y la frecuencia de administraci?n apropiados, el efecto de las dosis olvidadas y retrasadas y las instrucciones de almacenamiento, viaje y seguridad. T?cnicas de resoluci?n de problemas para el seguimiento de episodios de hipo/hiperglucemia y tratamientos. Reducir los comportamientos de reducci?n de riesgos, dejar de fumar, ex?menes regulares de ojos, pies y dentales. Coding Level of Care Code Est Pt Level 1 (80008) Diagnoses Type 2 diabetes mellitus E11.9
== END 2024-02-27 13:57 | disposition home or self-care (01) ==
PROVIDERS: PCP Internal Medicine; Visit Provider Registered Nurse Diabetes Educator
DX: E11.9 Type 2 diabetes mellitus without complications (principal)

== ENCOUNTER 2024-03-03 10:43 | Outpatient (AMB) | payer OTHER, SELFPAY ==
--- NOTE | 2024-03-03 10:49 | MHC.OFFVIS ---
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 Pt states he has pain in both hands during the day and wakes up at night from the pain. Pt states he also has numbness in his finger tips. 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 The patient reports that he has been experiencing numbness and tingling for many months, and they had an EMG and nerve conduction study performed in January. The patient reports that his numbness and tingling are intermittent, but daily. Patient also reports in his symptoms are worse at night, and are often associated with pain that awakens him from sleep or prevents him from sleeping. The patient reports that this numbness and tingling affects all of his fingers, including the small finger. The patient also reports that his right middle finger locks and catches, and then he previously had injections in [place] to no effect. No other acute complaints or concerns at this [facility] Medical History Type 2 diabetes mellitus Chronic heart failure with preserved ejection fraction (HFpEF) Cardiomyopathy Hypoglycemia due to type 2 diabetes mellitus Acute on chronic systolic (congestive) heart failure Defibrillator discharge Hospital discharge follow-up CHF (congestive heart failure) ROE (obstructive sleep apnea) Hypothyroidism Reactive airway disease [id number] syndrome Obesity due to excess calories ROE (obstructive sleep apnea) ROE on CPAP Ischemic cardiomyopathy Atherosclerotic cardiovascular disease GERD (gastroesophageal reflux disease) Hypothyroidism Type 2 diabetes mellitus with hyperglycemia, with long-term current use of insulin Type 2 diabetes mellitus with diabetic polyneuropathy Essential hypertension Chronic systolic (congestive) heart failure ICD (implantable cardioverter-defibrillator) in place HTN (hypertension) CAD (coronary artery disease) Hyperlipidemia LDL goal <70 Dyspnea Bibasilar crackles Sleep apnea Insomnia Delusion of persecution Surgical History H/O inguinal hernia repair History of tooth extraction Hx of CABG (~2019) History of open heart surgery History of bilateral cataract extraction Family History Father No problems noted. Mother CVD (cardiovascular disease) Social History Household Members: Spouse Housing: Apartment Alcohol intake: former Patient Tobacco Use Status: Never used Tobacco e-Cigarette/Vaping Use: Never Used Second Hand Smoke Exposure: No service: No Current occupational status: retired Cognitive needs: Yes Hearing needs: No Vision needs: Yes Review of Systems Const All systems reviewed & are unremarkable except as noted in HPI and below Physical Exam Extrem Other: Patient is alert, oriented, and in no acute distress. Neuro: Median, ulnar, radial nerves motor and sensory intact and sensation is normal to the tips of all digits. Vascular: Cap refill brisk Pain: Patient reports no pain at this time ROM: Range of motion of bilateral hands full and intact, no evidence of locking or catching noted Skin: No lacerations or abrasions. General: No ecchymosis, erythema, or evidence of infection. Psych: Appears grossly normal Affect normal Attitude cooperative Results Reviewed Results Reviewed: Nerve conduction study and EMG reveal moderate to severe carpal tunnel bilaterally, mild cubital tunnel bilaterally. Lab results show last hemoglobin A1c of 11.9 on 02/20/2024 Assessment & Plan Assessment & Plan (1) Bilateral carpal tunnel syndrome: Code(s): G56.03 - Carpal tunnel syndrome, bilateral upper limbs Category: Medical (2) Cubital tunnel syndrome, bilateral: Code(s): G56.23 - Lesion of ulnar nerve, bilateral upper limbs Category: Medical Plan 1. Carpal tunnel syndrome, bilateral 2. Cubital tunnel syndrome, bilateral Symptoms intermittent, but daily, worse at night Case discussed with Dr. Vaughn After reviewing patient's lab results in chart, it was revealed that his last hemoglobin A1c done on 02/20/2024 was 11.9 Patient reports a history of poor control of his diabetes as well Patient is informed that we can not pursue surgical treatment or injection with an A1c this high Patient is educated on the potential effects of poor diabetes control on wound healing after surgery, and is informed that this is why we can not pursue surgery Patient is also informed that injections can cause increase in blood sugar, and we can not do this in somebody with poor control their diabetes Patient is also educated on the systemic effects of poor diabetes control Patient is told to follow up once his diabetes is under better control, and at that point we can discuss further treatment options Coding Level of Care Code New Pt Level 3 (75725) Diagnoses Bilateral carpal tunnel syndrome G56.03 Cubital tunnel syndrome, bilateral G56.23
== END 2024-03-03 11:32 | disposition home or self-care (01) ==
PROVIDERS: PCP Internal Medicine
DX: G56.03 Carpal tunnel syndrome, bilateral upper limbs (principal); G56.23 Lesion of ulnar nerve, bilateral upper limbs; E11.65 Type 2 diabetes mellitus with hyperglycemia
CPT/HCPCS: 99203

== ENCOUNTER → 2024-03-03 10:43 | Outpatient (BNVA) | payer OTHER, SELFPAY | PROVIDERS: PCP Internal Medicine | DX: G56.03 Carpal tunnel syndrome, bilateral upper limbs (principal); G56.23 Lesion of ulnar nerve, bilateral upper limbs | CPT/HCPCS: 99202 ==

== ENCOUNTER 2024-03-06 11:28 | Outpatient (REF) | payer OTHER, SELFPAY ==
--- NOTE | ~2024-03-06 | XR_ITS ---
EXAMINATION: XR CHEST CLINICAL INFORMATION: Heart failure. COMPARISON: Chest x-ray February 12, 2024 TECHNIQUE: 2 views of the chest were obtained. FINDINGS: Status post median sternotomy. The sternal suture wires are broken at all levels. Single lead pacemaker over the right ventricle unchanged position since prior study. Asymmetrically elevated right diaphragm with linear atelectasis at the right lung base. There is no acute airspace disease. No pulmonary vascular congestion. No pleural effusion or pneumothorax. XR/XR chest 2V IMPRESSION: 1. No acute abnormality of chest.
[2024-03-06 12:00] LABS: MANUAL DIFF FLAG NO
[2024-03-06 12:35] LABS: Basophils Absolute Auto 0.1 X10*3/uL (0.0-0.2); Basophils Percent Auto 0.7 % (0-2); Eosinophils Absolute Auto 0.6 X10*3/uL (0.0-0.4); Eosinophils Percent Auto 5.6 % (0-4); Hematocrit 42.8 % (42.0-52.0); Hemoglobin 13.9 g/dl (14.0-18.0); Imm Gran Abs Auto 0.03 X10*3/uL (0.00-0.03); Imm Gran Pct Auto 0.3 % (0.0-0.4); Lymphocytes Absolute Auto 1.8 X10*3/uL (1.2-4.9); Lymphocytes Percent Auto 16.6 % (20-40); Mean Corpuscular HGB Conc 32.5 g/dl (31.0-36.0); Mean Corpuscular Hemoglobin 29.9 pg (27.0-33.0); Mean Platelet Volume 10.2 fL (9.4-12.4); Monocytes Percent Auto 9.2 % (2-11); Neutrophils Absolute Auto 7.2 x10*3/uL (2.0-8.3); Neutrophils Percent Auto 67.6 % (45-73); Platelet Count 258 X10*3/uL (160-400); Red Blood Count 4.65 X10*6/uL (4.60-5.80); Red Cell Distribution Width 15.2 % (11.0-16.0); White Blood Count 10.6 X10*3/uL (4.8-10.8)
[2024-03-06 13:06] LABS: Potassium 5.2 mmol/L (3.3-5.1)
[2024-03-06 19:35] LABS: B Type Natriuretic Peptide 113 pg/mL (<100)
== END 2024-03-06 11:29 | disposition home or self-care (01) ==
LOC: HO.LAB 11:28
PROVIDERS: Absent Provider Nurse Practitioner Family; PCP Internal Medicine; Visit Provider Nurse Practitioner Adult Health
DX: E11.9 Type 2 diabetes mellitus without complications (principal); R06.00 Dyspnea, unspecified; I50.9 Heart failure, unspecified; J45.909 Unspecified asthma, uncomplicated
CPT/HCPCS: 36415; 71046; 83880; 84132; 85025; 94640; 99212

== ENCOUNTER 2024-03-06 14:45 | Outpatient (AMB) | payer OTHER, SELFPAY ==
--- NOTE | 2024-03-04 13:22 | A.OFFVIS_ITS ---
Intake Visit Reasons: ED / F[place] [place] Allergies Penicillins Allergy (Intermediate, Verified 03/03/24 10:49) ITCHING HPI HPI ED / FU ([facility] [place] Details: Ed is a pleasant 73 year old male, smoker , with underlying, CHF, DMII, HTN, ischemic cardiomyopathy, ROE and CKD. He was referred by [facility] [place] ED for pulmonary evaluation. He was seen on 02/11 with two week history of worsening dyspnea and treated with zpak, po steroids and duoneb. He denies prior h/o asthma or diagnosis of COPD. He denies any pertinent family history. 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 Obesity due to excess calories ROE (obstructive sleep apnea) ROE on CPAP Ischemic cardiomyopathy Atherosclerotic cardiovascular disease GERD (gastroesophageal reflux disease) Hypothyroidism Type 2 diabetes mellitus with hyperglycemia, with long-term current use of insulin Type 2 diabetes mellitus with diabetic polyneuropathy Essential hypertension Chronic systolic (congestive) heart failure ICD (implantable cardioverter-defibrillator) in place HTN (hypertension) CAD (coronary artery disease) Hyperlipidemia LDL goal <70 Dyspnea Bibasilar crackles Sleep apnea Insomnia Delusion of persecution Surgical History H/O inguinal hernia repair History of tooth extraction Hx of CABG (~2019) History of open heart surgery History of bilateral cataract extraction Family History Father No problems noted. Mother CVD (cardiovascular disease) Social History Household Members: Spouse Housing: Apartment Alcohol intake: former Patient Tobacco Use Status: Never used Tobacco e-Cigarette/Vaping Use: Never Used Second Hand Smoke Exposure: No service: No Current occupational status: retired Cognitive needs: Yes Hearing needs: No Vision needs: Yes Coding
--- NOTE | 2024-03-06 15:32 | A.OFFVIS_ITS ---
Vital Signs 03/06/24 15:35 Height 5 ft 7 in Weight 214 lb 8 oz BMI 33.6 BP 134/60 Blood Pressure Location Rt brachial Position Sitting Pulse 71 Pulse Source Pulse Oximeter Pulse Oximetry (%) 91 L Oxygen Delivery Method Room Air Intake Visit Reasons: ED / FU ([facility] [place]) [employer] Worker Required: Yes [employer] Worker Language: Pasting Inspector Name: [id number] Cher Allergies Penicillins Allergy (Intermediate, Verified 03/06/24 20:41) ITCHING HPI HPI ED / FU ([facility] [place]): Details: ?Ed is a pleasant 73 year old male, former minimal smoker, with underlying, CHF, DMII, HTN, ischemic cardiomyopathy, ROE and CKD. He is under the care of Dr. Calderón and presents for a hospital follow up. He was seen on 02/11 at [facility] ED with two week history of worsening dyspnea and treated with zpak, po steroids and duoneb. He reported improvement in symptoms during course, but once completed symptoms worsened. He reports significant orthopnea and dyspnea on minimak exertion. He has had a dry cough and minimal wheezing. He was prescribed Trelegy by PCP as he had suboptimal response to Symbicort in the past but has been without for the last 4-6 weeks. He did note symptoms were better controlled on Trelegy. Of note, he was prescribed ciprofloxacin for wound infection by endocrinology. Patient notes significant difficulties maintaining optimal blood glucose and difficulties operating glucometer. He does have upcoming appointment with trial examiner. He was also found to have hyperkalemia, trending down today 5.2, with creatinine 1.74, with CKD III. [facility] Medical History (Updated 03/06/24 @ 16:33 by Zakia Funes NP) CHF (congestive heart failure) Type 2 diabetes mellitus Chronic heart failure with preserved ejection fraction (HFpEF) Cardiomyopathy Hypoglycemia due to type 2 diabetes mellitus Acute on chronic systolic (congestive) heart failure Defibrillator discharge Hospital discharge follow-up ROE (obstructive sleep apnea) Hypothyroidism Reactive airway disease [id number] syndrome Obesity due to excess calories ROE (obstructive sleep apnea) ROE on CPAP Ischemic cardiomyopathy Atherosclerotic cardiovascular disease GERD (gastroesophageal reflux disease) Hypothyroidism Type 2 diabetes mellitus with hyperglycemia, with long-term current use of insulin Type 2 diabetes mellitus with diabetic polyneuropathy Essential hypertension Chronic systolic (congestive) heart failure ICD (implantable cardioverter-defibrillator) in place HTN (hypertension) CAD (coronary artery disease) Hyperlipidemia LDL goal <70 Dyspnea Bibasilar crackles Sleep apnea Insomnia Delusion of persecution Surgical History H/O inguinal hernia repair History of tooth extraction Hx of CABG (~2019) History of open heart surgery History of bilateral cataract extraction Family History Father No problems noted. Mother CVD (cardiovascular disease) Social History (Updated 03/06/24 @ 15:43 by Taisha Schulz CMA) Household Members: Spouse Housing: Apartment Alcohol intake: former Patient Tobacco Use Status: Former Tobacco user e-Cigarette/Vaping Use: Never Used Second Hand Smoke Exposure: No service: No Current occupational status: retired Cognitive needs: Yes Hearing needs: No Vision needs: Yes Review of Systems Const Denies chills, Denies excessive sweating, Denies fever(s), Denies headache(s) and Denies night sweats Eyes Denies dry eyes, Denies irritation and Denies itchy eyes ENT Reports Normal hearing present, Denies headache(s), Denies nasal congestion, Denies nasal discharge, Denies post nasal drip and Denies sore throat Card Denies chest pain, Denies chest pain at rest, Denies chest pain with activity, Denies claudication, Denies dyspnea on exertion and Denies paroxysmal nocturnal dyspnea Resp Denies chest congestion, Denies excessive phlegm production, Denies pain on inspiration, Denies pain with cough, Denies dyspnea on exertion and Denies stridor Musc Denies myalgias Neuro Reports Normal hearing present and Denies headache(s) Endo Denies excessive sweating Jono/Lymph Denies lymphadenopathy Aller/Immun Denies itchy eyes and Denies seasonal rhinorrhea Physical Exam Vital Signs: Last Vital Signs Pulse 71 03/06/24 15:35 BP 134/60 03/06/24 15:35 Pulse Ox 91 L 03/06/24 15:35 Oxygen Delivery Method Room Air 03/06/24 15:35 BMI result Body Mass Index 33.6 Const General: cooperative, no acute distress, well developed and alert Nutritional Appearance: obese Orientation/consciousness: patient oriented x3 Limitations: ambulation with cane HEENT Head: Yes normal to inspection, Yes normocephalic and Yes atraumatic Ears: hearing grossly normal bilaterally and external ears normal Eyes General: appearance normal, both eyes and all related structures Eyelids: Yes eyelids normal Sclerae: sclerae normal EOM: EOMs intact bilaterally Neck Neck: Yes normal visual inspection and Yes no lymphadenopathy Lymphatic: no lymphadenopathy noted Chest Chest palpation & inspection: normal inspection of the chest Resp Other: faint bibasliar inspiratory crackles with rhonchi throughout, mildly improved with neb tx Effort & Inspection: able to speak in complete sentences, no audible wheezes, no stridor, not tachypneic, no tripod positioning and no use of accessory muscles Cardio Rate: regular rate Rhythm: regular rhythm Skin Other: warm, dry General skin exam: no rashes or lesions noted Neuro General: patient oriented x3 Cranial nerves: Yes Normal hearing present Cognition (Neuro): normal cognition Gait exam (Neuro): Normal gait present Extrem Other: 3+ pitting edema BLE Psych Appearance: grossly normal and well kempt Speech and movement: Normal speech and movement present and Clear speech present Affect: normal affect Attitude: cooperative Thought process: Normal thought process present Thought content: Normal thought content present Insight: Good insight present (Psych) Judgement: Good judgement present (Psych) Office Procedures Nebulizer Treatment Nebulizer Treatment 24523-[id number]/MDI RX initial, or Nebulizer Subsequent Treatment Office Meds levalbuterol HCl 1.25 mg/3 mL solution for nebulization Performing Provider: Zakia Funes NP Performing Location: [facility] [place] Pulmonology Services-[facility] Administered by: Janay Odom LPN on 03/06/24 16:14 Dose Route Admin Location Dispensed Lot Number Expiration Date [facility] [employer] 1.25 mg inhalation 3 mL [id number] 11/02/24 73555-239-48 [employer] Assessment & Plan Assessment & Plan (1) Dyspnea: Code(s): R06.00 - Dyspnea, unspecified Category: Medical (2) CHF (congestive heart failure): Code(s): I50.9 - Heart failure, unspecified Category: Medical (3) Asthma: Code(s): J45.909 - Unspecified asthma, uncomplicated Category: Medical Qualifiers: Asthma severity: moderate Asthma persistence: persistent Asthma complication type: with acute exacerbation Qualified Code(s): J45.41 - Moderate persistent asthma with (acute) exacerbation Plan Patient presents for hospital follow up with worsening dyspnea, BLE edema, and orthopnea. Symptoms likely related to underlying CHF, will send for BNP and CXR today. He has also been without a maintenance inhaler, will resend prescription. Discussed likelihood of ED evaluation depending on results. On exam patient with rhonchi throughout minimally improved with nebulizer. No wheezing appreciated. Discussed possibility of oral steroids but patient reluctant due to difficulty with blood sugars. Will call patient with results when available. All questions were answered and patient is in agreement of plan. Will follow up with Dr. Calderón for regularly scheduled appointment. Orders: Orders AMB Nebulizer Treatment Today J45.40 - Moderate persistent asthma, uncomplicated XR chest 2V Today I50.9 - Heart failure, unspecified, R06.00 - Dyspnea, unspecified B Type Natriuretic Peptide Today R06.00 - Dyspnea, unspecified Medications: Refilled rjrrnbxkykw-ibtnaftzu-dwnjfyed 100-62.5-25 mcg (Trelegy Ellipta) 1 inh inhalation DAILY 28 days 28 ea 6RF J45.909 - Unspecified asthma, uncomplicated Coding Level of Care Code Est Pt Level 4 (44932) Diagnoses Dyspnea R06.00 CHF (congestive heart failure) I50.9 Moderate persistent asthma with acute exacerbation J45.41 Asthma severity: moderate Asthma persistence: persistent Asthma complication type: with acute exacerbation CPT Codes Nebulizer Treatment - Nebulizer Treatment, initial or subsequent: 95560- Nebulizer/MDI RX initial, or Nebulizer Subsequent Treatment ([id number])
[2024-03-06 15:35] VITALS: BP 134/60; PULSE 71; O2SAT 91; BMI 33.6
== END 2024-03-06 16:31 | disposition home or self-care (01) ==
PROVIDERS: PCP Internal Medicine; Visit Provider Nurse Practitioner Family
DX: R06.00 Dyspnea, unspecified (principal); I50.9 Heart failure, unspecified; J45.41 Moderate persistent asthma with (acute) exacerbation; J45.40 Moderate persistent asthma, uncomplicated
CPT/HCPCS: 99214

== ENCOUNTER 2024-03-06 20:26 | Inpatient (IN) | payer OTHER, SELFPAY ==
--- NOTE | ~2024-03-06 | CT_ITS ---
EXAMINATION: CT CHEST WITHOUT CONTRAST CLINICAL INFORMATION: Hypoxic COMPARISON: 05/27/2023 TECHNIQUE: Multidetector volumetric CT imaging of the chest was done. Axial MIP volume rendering provided. Sagittal and coronal reformatted images were obtained. This CT examination was performed using dose optimization techniques as appropriate, variously including the following: *Automated exposure control *Adjustment of mA and/or kV according to patient size (this includes techniques or standardized protocols for targeted exams where dose is matched to indication/reason for exam; i.e. extremities or head) *Use of iterative reconstruction technique DLP: 358 mGy-cm FINDINGS: LUNGS: There is elevation of the right hemidiaphragm. Regions of dense opacity in the adjacent inferior right middle and lower lobes are favored to at least mostly represent atelectasis in this setting. Left lung is well-aerated. Benign calcified granuloma in the left upper lobe. MEDIASTINUM: Thyroid gland is grossly unremarkable. There are subcentimeter mediastinal lymph nodes within the range of normal variation. Cardiac size is within normal limits; no pericardial effusion. Left-sided AICD lead tips extend to the right ventricle. CORONARY ARTERY CALCIFICATION: Present. Patient appears to be status post CABG. PLEURA: No pneumothorax or pleural effusion. AXILLA: No lymphadenopathy. UPPER ABDOMEN: Unremarkable. OSSEOUS STRUCTURES: Status post sternotomy. CT/CT chest wo IV con IMPRESSION: Elevation of the right hemidiaphragm with regions of dense opacity in the adjacent inferior right middle and lower lobes which are favored to at least mostly represent atelectasis in this setting. The possibility of some superimposed consolidation cannot be excluded in the proper clinical setting. Imaging follow-up is recommended; if this persists, consider further evaluation with bronchoscopy.
--- NOTE | 2024-03-06 20:35 | ED_ITS ---
HPI - General Adult General Chief complaint: Recheck/Abnormal Lab/Rx Stated complaint: abnormal labs, heart failure Time Seen by Provider: 03/06/24 21:38 Source: patient and family Mode of arrival: ambulatory Limitations: no limitations History of Present Illness ED Provider: Dr. Zakia Quiroz HPI narrative: Patient comes to the emergency room stating that he was asked by his primary care physician or someone in their office to come to the emergency room for abnormal labs. Patient states that he got labs done today because he has been feeling short of breath. Patient states that he was told that his potassium was high, that he needed to report immediately to the emergency room. Patient denies any chest pain. However, patient states that for A few days now he has been feeling short of breath. patient states that he feels short of breath when he is sitting but it is much worse when never he exerts himself minimally. Patient is not O2 dependent. Related Data Home Medications ?Medication ?Instructions ?Recorded ?Confirmed CPAP (CPAP Machine/Device) 06/24/23 01/15/24 insulin glargine U-300 conc 300 unit subcut 03/03/24 unit/mL (3 mL) subcutaneous pen (Toujeo Max U-300 SoloStar) Previous Rx's ?Medication ?Instructions ?Recorded blood-glucose meter (FreeStyle #1 ea 10/05/20 Lite Meter kit) blood sugar diagnostic (FreeStyle #100 ea 01/05/23 Lite Strips) gabapentin 100 mg capsule 100 mg PO BEDTIME 30 days #30 caps 03/07/23 Ventolin HFA 90 mcg/actuation 2 puff PO Q6H PRN for wheezing #18 04/03/23 aerosol inhaler (albuterol sulfate) ea furosemide 40 mg tablet 40 mg PO DAILY 90 days #90 tabs 05/28/23 pen needle, diabetic 32 gauge x #120 ea 07/18/23 trazodone 50 mg tablet 50 mg PO BEDTIME 90 days #90 tabs 08/03/23 rosuvastatin 40 mg tablet 40 mg PO DAILY #90 tabs 10/05/23 cholecalciferol (vitamin D3) 50 50 mcg PO DAILY 90 days #90 caps 11/18/23 mcg (2,000 unit) capsule meclizine 12.5 mg tablet 12.5 mg PO Q12H PRN for dizziness 12/10/23 #30 tabs amlodipine 5 mg tablet 5 mg PO DAILY #90 tabs 12/14/23 metoprolol succinate 100 mg 100 mg PO DAILY #90 tabs 12/14/23 tablet,extended release 24 hr pramipexole 0.5 mg tablet 0.5 mg PO DAILY #90 tabs 12/14/23 cyclobenzaprine 10 mg tablet 10 mg PO BEDTIME PRN muscle spasm 01/15/24 7 days #7 tabs famotidine 20 mg tablet 20 mg PO BEDTIME for heartburn 90 01/19/24 days #90 tabs galantamine 8 mg 24 hr 8 mg PO QAM #90 caps 01/19/24 capsule,extended release blood-glucose meter,continuous #1 ea 02/10/24 (FreeStyle Manjit 3 [place]) blood-glucose sensor (FreeStyle #1 ea 02/10/24 Manjit 3 Sensor device) losartan 25 mg tablet 25 mg PO DAILY 90 days #90 tabs 02/16/24 insulin aspart U-100 100 unit/mL 1 sliding scale dose subcut 02/20/24 (3 mL) subcutaneous pen (Novolog USEASDIRECTD #15 mL FlexPen U-100 Insulin aspart) insulin degludec 200 unit/mL (3 90 unit (0.45 mL) subcut BEDTIME 02/20/24 mL) subcutaneous pen (Tresiba 30 days #13.5 mL FlexTouch U-200 insulin) aspirin 81 mg tablet,delayed 81 mg PO DAILY #90 tabs 02/27/24 release (Enteric Coated Aspirin) tirzepatide 5 mg/0.5 mL 5 mg (0.5 mL) subcut QWEEK 30 days 02/27/24 subcutaneous pen injector #2.5 mL (Mounjaro) metformin 1,000 mg tablet 1,000 mg PO BID 90 days #180 tabs 02/29/24 ciprofloxacin HCl 500 mg tablet 500 mg PO BID 10 days #20 tabs 03/06/24 (Cipro) fluticasone fur. 100 mcg-umeclid 1 inh inhalation DAILY 28 days #28 03/06/24 62.5 mcg-vilant 25 mcg ea inhalat.powder (Trelegy Ellipta) Allergies Allergy/AdvReac Type Severity Reaction Status Date / Time Penicillins Allergy Intermediate ITCHING Verified 03/06/24 20:41 Review of Systems 2 Review of Systems: Constitutional : No Weight loss, No Fever, No Chills, No Night Sweats, No Fatigue, No Malaise ENT/Mouth : No Hearing loss, No Ear Pain, No Nasal Congestion, No Sinus Pain, No Hoarseness, No sore throat, No Rhinorrhea, No Swallowing Difficulty Eyes: No Eye Pain, No Swelling, No Redness, No Foreign Body, No Discharge, No Vision Changes Cardiovascular : No Chest Pain, No orthopnea, no edema, complaining of shortness of breath with normal exertion Respiratory : No Cough, No Sputum, No Wheezing, No Smoke Exposure, complaining of Dyspnea Gastrointestinal : No Nausea, No Vomiting, No Diarrhea, No Constipation, No abdominal Pain, No Hematochezia, No Melena Genitourinary : no irregular bleeding, No Dysuria, No Urinary Frequency, No Hematuria, No Urinary Incontinence, No Urgency, No Flank Pain, No Urinary Flow Changes, No Hesitancy Musculoskeletal : No joint pain, No Myalgias, No Joint Swelling Skin : No Skin Lesions, No rash Neuro : No Weakness, No Numbness, No Paresthesias, No Loss of Consciousness, No Dizziness, No Headache Psych : No Anxiety/Panic, No Depression, No SI/HI/AH/VH, No Social Issues, Heme/Lymph: No Bruising, No Bleeding,No Lymphadenopathy Endocrine : No Polyuria, No Polydipsia, No Temperature Intolerance, complaining of multiple episodes of hypoglycemia PMFSH Past Medical History Medical History CHF (congestive heart failure) Type 2 diabetes mellitus Chronic heart failure with preserved ejection fraction (HFpEF) Cardiomyopathy Hypoglycemia due to type 2 diabetes mellitus Acute on chronic systolic (congestive) heart failure Defibrillator discharge Hospital discharge follow-up ROE (obstructive sleep apnea) Hypothyroidism 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 Obesity due to excess calories ROE (obstructive sleep apnea) ROE on CPAP Ischemic cardiomyopathy Atherosclerotic cardiovascular disease GERD (gastroesophageal reflux disease) Hypothyroidism Type 2 diabetes mellitus with hyperglycemia, with long-term current use of insulin Type 2 diabetes mellitus with diabetic polyneuropathy Essential hypertension Chronic systolic (congestive) heart failure ICD (implantable cardioverter-defibrillator) in place HTN (hypertension) CAD (coronary artery disease) Hyperlipidemia LDL goal <70 Dyspnea Bibasilar crackles Sleep apnea Insomnia Delusion of persecution Surgical History H/O inguinal hernia repair History of tooth extraction Hx of CABG (~2019) History of open heart surgery History of bilateral cataract extraction Family History Family History Father No problems noted. Mother CVD (cardiovascular disease) Social History Social History (Updated 03/06/24 @ 15:43 by Taisha Schulz [facility]) Household Members: Spouse Housing: Apartment Alcohol intake: former Patient Tobacco Use Status: Former Tobacco user e-Cigarette/Vaping Use: Never Used Second Hand Smoke Exposure: No Advance Directives: No Advance Directives Information Provided: No Do you have a plan to hurt others: No Plan service: No Current occupational status: retired Cognitive needs: Yes Hearing needs: No Vision needs: Yes Physical Exam ED Vital Signs: Vital Signs - 24 hr 03/06/24 20:38 03/06/24 20:58 03/06/24 22:50 Temperature 98.5 F 98.7 F Pulse Rate 65 75 Respiratory Rate 20 16 Blood Pressure 119/57 L 141/75 H Pulse Oximetry 92 89 L 84 L Oxygen Delivery Method Room Air Room Air Room Air Oxygen Flow Rate 03/06/24 22:51 03/06/24 22:56 03/07/24 00:56 Temperature 98.5 F 98.1 F Pulse Rate 71 76 Respiratory Rate 17 18 Blood Pressure 125/67 126/64 Pulse Oximetry 91 L 93 94 Oxygen Delivery Method Nasal Cannula Nasal Cannula Nasal Cannula Oxygen Flow Rate 2 2 3 BMI result Body Mass Index 35.2 Const Other: Appearance: Alert. Oriented X3. No acute distress. Eyes: Pupils equal, round and reactive to light. ENT: Pharynx normal. Neck: Normal inspection. Neck supple. No lymph nodes noted. No crepitus CVS: Normal heart rate and rhythm. Pulses normal. Normal S1 and S2 Respiratory: No respiratory distress. Breath sounds normal. No Wheezing. No rales . When patient walks, his oxygen saturation drops to 84% and becomes tachypneic. Abdomen: Soft and nontender. No rigidity. No distention. Skin: Skin warm and dry. Normal skin color. Normal skin turgor. Extremities: No lower extremity edema. No Lacerations. No Rash Neuro: Oriented X 3. No motor deficit. No sensory deficit. Moving all extremities. No slurred speech. CN 2 through 12 grossly intact Psych: calm, cooperative, normal affect Course Course Course Narrative: This is an RME performed by Khoi Muse CNP: Additional HPI, ROS, PE not included below will be deferred to primary provider. Patient is a 73-year-old male who presents to the emergency department with family for evaluation, he Had outpatient testing yesterday, received call from office today that he has significant hyperglycemia, worsening heart failure, worsening kidney failure. Patient has reportedly not been compliant with his medications recently was advised to come to the emergency department right away by ambulance. He reports orthopnea, and dyspnea on exertion per son. On review of his chart he had serum labs today including potassium of 5.2 and BNP 113. Labs obtained on 02/27/2024 revealed K 5.4, BUN 32 creatinine 1.74, fasting glucose 244. Saturation on room air at rest 91-92%, appears consistent with most recent visits as well. Medical Decision Making Medical Decision Making MDM Narrative: My interpretation of labs: Patient's hematology at baseline, coagulation normal, chemistry at baseline with a creatinine of 2.26 which is chronic, potassium of 5.1 which is normal. Glucose of 228, BNP 106 which is at baseline for the patient. - Chest x-ray does not show any evidence of pulmonary edema or infiltrates. - However, when patient starts walking his oxygen did drop to 84%. - A CT scan of the chest is pending. - Since patient is not O2 dependent, I discussed with the patient and his family that it would be best to keep the patient for further evaluation, all agree. - the patient's family state that patient has gradually become more short of breath throughout the last few years. In 2019 patient got COVID and since then his lungs and his breathing have not returned to baseline - Also, patient's and son state that patient has multiple episodes of hypoglycemia at night. The son states that the patient is noncompliant with his medications, and when he remembers to take his insulin, he takes his insulin Lantus and Humalog with a dose that he was supposed to use throughout the day or 2 days. The states that frequently patient wakes up diaphoretic in the middle of the night, checked his sugar, is usually in the 30s. Patient states that now he almost always sleeps with candies and juice in at his bedside because he knows that he will get hypoglycemic throughout the night - CT scan of the chest is still pending. - Sign-out given to my colleague Dr. Longoria - I also discussed the patient with Dr. Romeo, patient being admitted. Radiology report pending - at this time , patient's vitals are stable, blood pressure 126/64, pulse 76, oxygen saturation 94% on 3 L nasal cannula. Differential Diagnosis Differential Diagnoses: The differential diagnosis associated with the presentation includes ( Pneumonia, CHF) Admission/Observation Consideration of admission/observation: Escalation of care including admission/observation considered ( patient being admitted) Consult Healthcare Provider Management of the patient was discussed with: Hospitalist Lab Data MDM Lab Attestation statement: I reviewed the patient's lab results. 03/06/24 21:09 03/06/24 21:10 Labs: Lab Results 03/06/24 03/06/24 03/06/24 Range/Units 21:09 21:10 21:25 WBC 10.4 (4.8-10.8) X10*3/uL RBC 4.42 L (4.60-5.80) X10*6/uL Hgb 13.2 L (14.0-18.0) g/dl Hct 40.2 L (42.0-52.0) % MCV 91.0 (80.0-98.0) fL MCH 29.9 (27.0-33.0) pg MCHC 32.8 (31.0-36.0) g/dl RDW 14.9 (11.0-16.0) % Plt Count 225 (160-400) X10*3/uL MPV 9.8 (9.4-12.4) fL Immature Gran % (Auto) 0.3 (0.0-0.4) % Neut % (Auto) 59.2 (45-73) % Lymph % (Auto) 23.7 (20-40) % Mcdowell % (Auto) 12.1 H (2-11) % Eos % (Auto) 4.2 H (0-4) % Baso % (Auto) 0.5 (0-2) % Lymph # (Auto) 2.5 (1.2-4.9) X10*3/uL Mcdowell # (Auto) 1.3 H (0.1-1.2) X10*3/uL Eos # (Auto) 0.4 (0.0-0.4) X10*3/uL Baso # (Auto) 0.1 (0.0-0.2) X10*3/uL Abs Immat Gran (auto) 0.03 (0.00-0.03) X10*3/uL Absolute Neuts (auto) 6.2 (2.0-8.3) x10*3/uL Absolute Nucleated RBC 0.000 (0.0-0.012) X10*3/uL Nucleated RBC % (auto) 0.0 (0.0-0.2) /100WBC PT 10.5 L (11.1-13.3) SEC INR 0.9 (0.9-1.1) APTT 35.0 (26.0-36.8) SEC Sodium 138 137 (135-145) mmol/L Potassium 5.0 5.1 (3.3-5.1) mmol/L Chloride 100 100 (96-108) mmol/L Carbon Dioxide 30 H 28 (22-29) mmol/L Anion Gap 13 14 (12-20) BUN 35 H 35 H (9-16) mg/dL Creatinine 2.25 H 2.26 H (0.5-1.4) mg/dL Estim Creat Clear Calc 32.2 32.1 Estimated GFR 29 28 POC Glucose 228 H (60-115) mg/dL Random Glucose 245 H 247 H (60-115) mg/dL Calcium 9.3 9.2 (8.4-10.2) mg/dL Total Bilirubin 0.2 (0.0-1.0) mg/dL AST 19 (5-37) U/L ALT 23 (0-40) U/L Alkaline Phosphatase 67 (39-117) U/L Troponin I High Sens 5.0 (<3.5-35.0) ng/L B-Natriuretic Peptide 106 H (<100) pg/mL Total Protein 6.9 (6.5-8.0) g/dL Albumin 3.6 (3.5-5.0) g/dL Influenza Type A (PCR) (Negative) Influenza Type B (PCR) (Negative) RSV RNA Qual (PCR) (Negative) SARS-CoV-2 RNA (RT-PCR) (Negative) 03/06/24 Range/Units 23:16 WBC (4.8-10.8) X10*3/uL RBC (4.60-5.80) X10*6/uL Hgb (14.0-18.0) g/dl Hct (42.0-52.0) % MCV (80.0-98.0) fL MCH (27.0-33.0) pg MCHC (31.0-36.0) g/dl RDW (11.0-16.0) % Plt Count (160-400) X10*3/uL MPV (9.4-12.4) fL Immature Gran % (Auto) (0.0-0.4) % Neut % (Auto) (45-73) % Lymph % (Auto) (20-40) % Mcdowell % (Auto) (2-11) % Eos % (Auto) (0-4) % Baso % (Auto) (0-2) % Lymph # (Auto) (1.2-4.9) X10*3/uL Mcdowell # (Auto) (0.1-1.2) X10*3/uL Eos # (Auto) (0.0-0.4) X10*3/uL Baso # (Auto) (0.0-0.2) X10*3/uL Abs Immat Gran (auto) (0.00-0.03) X10*3/uL Absolute Neuts (auto) (2.0-8.3) x10*3/uL Absolute Nucleated RBC (0.0-0.012) X10*3/uL Nucleated RBC % (auto) (0.0-0.2) /100WBC PT (11.1-13.3) SEC INR (0.9-1.1) APTT (26.0-36.8) SEC Sodium (135-145) mmol/L Potassium (3.3-5.1) mmol/L Chloride (96-108) mmol/L Carbon Dioxide (22-29) mmol/L Anion Gap (12-20) BUN (9-16) mg/dL Creatinine (0.5-1.4) mg/dL Estim Creat Clear Calc Estimated GFR POC Glucose (60-115) mg/dL Random Glucose (60-115) mg/dL Calcium (8.4-10.2) mg/dL Total Bilirubin (0.0-1.0) mg/dL AST (5-37) U/L ALT (0-40) U/L Alkaline Phosphatase (39-117) U/L Troponin I High Sens (<3.5-35.0) ng/L B-Natriuretic Peptide (<100) pg/mL Total Protein (6.5-8.0) g/dL Albumin (3.5-5.0) g/dL Influenza Type A (PCR) NEGATIVE (Negative) Influenza Type B (PCR) NEGATIVE (Negative) RSV RNA Qual (PCR) NEGATIVE (Negative) SARS-CoV-2 RNA (RT-PCR) NEGATIVE (Negative) ABG Data Attestation ABG: I personally reviewed and interpreted this ABG as follows: Independent Interpretation I performed an independent interpretation of an: EKG and CT Scan Independent Historian Clinical information obtained from an independent historian. History obtained from or confirmed by: Spouse and Other ( son) Critical Care Time Critical Care Time Critical Care Time: Yes Total Critical Care Time: 60 Attestation: Appearance: Alert. Oriented X3. No acute distress. Eyes: Pupils equal, round and reactive to light. ENT: Pharynx normal. Neck: Normal inspection. Neck supple. No lymph nodes noted. No crepitus CVS: Normal heart rate and rhythm. Pulses normal. Normal S1 and S2 Respiratory: No respiratory distress. Breath sounds normal. No Wheezing. No rales Abdomen: Soft and nontender. No rigidity. No distention. Skin: Skin warm and dry. Normal skin color. Normal skin turgor. Extremities: No lower extremity edema. No Lacerations. No Rash Neuro: Oriented X 3. No motor deficit. No sensory deficit. Moving all extremities. No slurred speech. CN 2 through 12 grossly intact Psych: calm, cooperative, normal affect Discharge Plan Discharge Clinical Impression: Dyspnea Patient Disposition: Admitted As Inpatient Prescriptions: No Action (DME) blood-glucose meter [FreeStyle Lite Meter] Kit See Rx Instructions .ROUTE .MEDSUPPLY Qty: 1 0RF Rx Instructions: As directed (DME) FreeStyle Lite Strips Strip See Rx Instructions .Route Qty: 100 11RF Rx Instructions: As directed 4 times a day albuterol sulfate [Ventolin HFA] 90 mcg/actuation HFA aerosol inhaler 2 puff PO Q6H PRN (Reason: for wheezing) Qty: 18 5RF trazodone 50 mg tablet 50 mg PO BEDTIME 90 Days Qty: 90 2RF rosuvastatin 40 mg tablet 40 mg PO DAILY Qty: 90 1RF meclizine 12.5 mg tablet 12.5 mg PO Q12H PRN (Reason: for dizziness) Qty: 30 0RF amlodipine 5 mg tablet 5 mg PO DAILY Qty: 90 0RF metoprolol succinate 100 mg tablet extended release 24 hr 100 mg PO DAILY Qty: 90 0RF pramipexole 0.5 mg tablet 0.5 mg PO DAILY Qty: 90 0RF galantamine 8 mg capsule,ext rel. pellets 24 hr 8 mg PO QAM Qty: 90 1RF famotidine 20 mg tablet 20 mg PO BEDTIME 90 Days Qty: 90 1RF (DME) FreeStyle Manjit 3 [place] Misc See Rx Instructions .Route Qty: 1 11RF Rx Instructions: As directed (DME) FreeStyle Manjit 3 Sensor Device See Rx Instructions .Route Qty: 1 0RF Rx Instructions: As directed losartan 25 mg tablet 25 mg PO DAILY 90 Days Qty: 90 0RF Mounjaro 5 mg/0.5 mL pen injector 5 mg subcut QWEEK 30 Days Qty: 2.5 3RF aspirin [Enteric Coated Aspirin] 81 mg tablet,delayed release (DR/EC) 81 mg PO DAILY Qty: 90 0RF metformin 1,000 mg tablet 1,000 mg PO BID 90 Days Qty: 180 1RF ciprofloxacin HCl [Cipro] 500 mg tablet 500 mg PO BID 10 Days Qty: 20 0RF furosemide 40 mg tablet 40 mg PO DAILY 90 Days Qty: 90 1RF gabapentin 100 mg capsule 100 mg PO BEDTIME 30 Days Qty: 30 3RF (DME) pen needle, diabetic 32 gauge x 5/32 needle See Rx Instructions subcut .MEDSUPPLY Qty: 120 3RF Rx Instructions: 4 times a day As directed cholecalciferol (vitamin D3) 50 mcg (2,000 unit) capsule 50 mcg PO DAILY 90 Days Qty: 90 1RF cyclobenzaprine 10 mg tablet 10 mg PO BEDTIME PRN (Reason: muscle spasm) 7 Days Qty: 7 0RF insulin degludec [Tresiba FlexTouch U-200] 200 unit/mL (3 mL) insulin pen 90 unit subcut BEDTIME 30 Days Qty: 13.5 2RF insulin aspart U-100 [Novolog FlexPen U-100 Insulin] 100 unit/mL (3 mL) insulin pen 1 sliding scale dose subcut USEASDIRECTD Qty: 15 3RF Rx Instructions: Breakfast 35 units Lunch 40 units Supper 35 units Trelegy Ellipta 100-62.5-25 mcg blister with device 1 inh inhalation DAILY 28 Days Qty: 28 6RF (DME) CPAP Machine/Device Device See Rx Instructions .Route Rx Instructions: As directed insulin glargine U-300 conc [Toujeo Max U-300 SoloStar] 300 unit/mL (3 mL) insulin pen subcut Print Language: [place] Citizen
[2024-03-06 20:38] VITALS: BP 119/57; PULSE 65; RESP 20; TEMP 36.9; O2SAT 92; BMI 35.2
--- NOTE | 2024-03-06 20:44 | ECG_ITS ---
Test Reason : SHORTNESS OF BREATH Blood Pressure : / mmHG Vent. Rate : 073 BPM Atrial Rate : 073 BPM P-R Int : 174 ms QRS Dur : 080 ms QT Int : 386 ms P-R-T Axes : 000 050 069 degrees QTc Int : 425 ms Normal sinus rhythm Low voltage QRS Borderline ECG When compared with ECG of 12-FEB-2024 09:27, No significant change was found Referred By: Mary Muse Electronically Signed By:Pedro Foster
[2024-03-06 20:58] VITALS: BP 141/75; PULSE 75; RESP 16; TEMP 37.1; O2SAT 89
[2024-03-06 21:23] LABS: MANUAL DIFF FLAG NO
[2024-03-06 21:24] LABS: Basophils Absolute Auto 0.1 X10*3/uL (0.0-0.2); Basophils Percent Auto 0.5 % (0-2); Eosinophils Absolute Auto 0.4 X10*3/uL (0.0-0.4); Eosinophils Percent Auto 4.2 % (0-4); Hematocrit 40.2 % (42.0-52.0); Hemoglobin 13.2 g/dl (14.0-18.0); Imm Gran Abs Auto 0.03 X10*3/uL (0.00-0.03); Imm Gran Pct Auto 0.3 % (0.0-0.4); Lymphocytes Absolute Auto 2.5 X10*3/uL (1.2-4.9); Lymphocytes Percent Auto 23.7 % (20-40); Mean Corpuscular HGB Conc 32.8 g/dl (31.0-36.0); Mean Corpuscular Hemoglobin 29.9 pg (27.0-33.0); Mean Platelet Volume 9.8 fL (9.4-12.4); Monocytes Absolute Auto 1.3 X10*3/uL (0.1-1.2); Monocytes Percent Auto 12.1 % (2-11); Neutrophils Absolute Auto 6.2 x10*3/uL (2.0-8.3); Neutrophils Percent Auto 59.2 % (45-73); Platelet Count 225 X10*3/uL (160-400); Red Blood Count 4.42 X10*6/uL (4.60-5.80); Red Cell Distribution Width 14.9 % (11.0-16.0); White Blood Count 10.4 X10*3/uL (4.8-10.8)
[2024-03-06 21:29] LABS: INTERNATIONAL NORM RATIO 0.9 (0.9-1.1); Prothrombin Time 10.5 SEC (11.1-13.3)
[2024-03-06 21:34] LABS: Glucose, Whole Blood 228 mg/dL (60-115)
[2024-03-06 21:37] LABS: Anion Gap 14 (12-20); Blood Urea Nitrogen 35 mg/dL (9-16); Calcium 9.2 mg/dL (8.4-10.2); Carbon Dioxide 28 mmol/L (22-29); Chloride 100 mmol/L (96-108); Creatinine Clr Calc Pharmacy 32.1; Estimated Glomerular Filt Rate 28; Glucose Random 247 mg/dL (60-115); Potassium 5.1 mmol/L (3.3-5.1); Sodium 137 mmol/L (135-145)
[2024-03-06 21:38] LABS: Alanine Aminotransferase 23 U/L (0-40); Albumin Level 3.6 g/dL (3.5-5.0); Alkaline Phosphatase 67 U/L (39-117); Anion Gap 13 (12-20); Aspartate Amino Transferase 19 U/L (5-37); Bilirubin Total 0.2 mg/dL (0.0-1.0); Blood Urea Nitrogen 35 mg/dL (9-16); Calcium 9.3 mg/dL (8.4-10.2); Carbon Dioxide 30 mmol/L (22-29); Chloride 100 mmol/L (96-108); Creatinine Clr Calc Pharmacy 32.2; Estimated Glomerular Filt Rate 29; Glucose Random 245 mg/dL (60-115); Sodium 138 mmol/L (135-145); Total Protein 6.9 g/dL (6.5-8.0)
--- NOTE | 2024-03-06 21:55 | ECG_ITS ---
Test Reason : CHEST PAIN Blood Pressure : / mmHG Vent. Rate : 071 BPM Atrial Rate : 071 BPM P-R Int : 156 ms QRS Dur : 084 ms QT Int : 398 ms P-R-T Axes : 059 009 -17 degrees QTc Int : 432 ms Normal sinus rhythm Normal ECG When compared with ECG of 06-MAR-2024 21:00, Nonspecific T wave abnormality now evident in Inferior leads Referred By: Zakia Quiroz Electronically Signed By:Pedro Foster
[2024-03-06 22:05] LABS: B Type Natriuretic Peptide 106 pg/mL (<100)
[2024-03-06 22:50] VITALS: O2SAT 84
--- NOTE | 2024-03-06 22:50 | MHC.EDTECH ---
T/w did ambulation trial with Pt, who de-satted to 84%. Dr. Richie villafuerte.
[2024-03-06 22:51] VITALS: O2SAT 91
[2024-03-06 22:56] VITALS: BP 125/67; PULSE 71; RESP 17; TEMP 36.9; O2SAT 93
[2024-03-06 23:57] LABS: Influenza A PCR NEGATIVE (Negative); Influenza B PCR NEGATIVE (Negative); Resp Syncy Virus RNA Qual PCR NEGATIVE (Negative); SARS COV2 PCR INHOUSE NEGATIVE (Negative)
[2024-03-07] VITALS (11 sets, daily range): BP systolic 103–136; BP diastolic 56–69; PULSE 68–97; RESP 14–20; TEMP 36.3–36.8; O2SAT 92–96
--- NOTE | 2024-03-07 00:40 | PC.NURSE ---
took over care from REJI Jenkins, no sob or chest pain, pt sleeping at this time.
--- NOTE | 2024-03-07 00:41 | PC.NURSE ---
pt was taken to CT, awaiting results
--- NOTE | 2024-03-07 02:35 | PM.IMHP ---
History of Present Illness Date of Service: 03/07/24 Chief Complaint: Dyspnea This is a 73-year-old male with pertinent history of combined systolic and diastolic congestive heart failure, insulin-dependent diabetes mellitus, CAD status post CABG, COPD not on home oxygen, ROE on CPAP, CKD, mood disorder who presents to the emergency department for evaluation of dyspnea. Patient states he has been having dyspnea for the last few days. It is worse with exertion. It is not worse with lying down. No PND. Patient also complains of cough with greenish sputum. Patient saw his PCP and got blood work done. His potassium was found to be elevated and he was sent to the ER. Patient states he is compliant with CPAP at bedtime but does not use supplemental oxygen during the day. No fever, chills, nausea, vomiting, chest pain, abdominal pain, changes in urinary or bowel habits. History obtained with the help of retail advertising sales manager. In the emergency department, imaging concerning for pneumonia and patient requiring 2 L supplemental oxygen. Review of Systems Constitutional: Constitutional: Reports fatigue Cardiovascular: Cardiovascular: Reports dyspnea on exertion Respiratory: Respiratory: Reports cough and Reports dyspnea on exertion Gastrointestinal: Gastrointestinal: Reports no additional gastrointestinal complaints Genitourinary: Genitourinary: Reports no additional male genitourinary complaints Endocrine: Endocrine: Reports fatigue [facility] Medical History CHF (congestive heart failure) Type 2 diabetes mellitus Chronic heart failure with preserved ejection fraction (HFpEF) Cardiomyopathy Hypoglycemia due to type 2 diabetes mellitus Acute on chronic systolic (congestive) heart failure Defibrillator discharge Hospital discharge follow-up ROE (obstructive sleep apnea) Hypothyroidism Reactive airway disease [id number] syndrome Obesity due to excess calories ROE (obstructive sleep apnea) ROE on CPAP Ischemic cardiomyopathy Atherosclerotic cardiovascular disease GERD (gastroesophageal reflux disease) Hypothyroidism Type 2 diabetes mellitus with hyperglycemia, with long-term current use of insulin Type 2 diabetes mellitus with diabetic polyneuropathy Essential hypertension Chronic systolic (congestive) heart failure ICD (implantable cardioverter-defibrillator) in place HTN (hypertension) CAD (coronary artery disease) Hyperlipidemia LDL goal <70 Dyspnea Bibasilar crackles Sleep apnea Insomnia Delusion of persecution Family History Father No problems noted. Mother CVD (cardiovascular disease) Surgical History H/O inguinal hernia repair History of tooth extraction Hx of CABG (~2019) History of open heart surgery History of bilateral cataract extraction Social History Household Members: Spouse Housing: Apartment Alcohol intake: former Patient Tobacco Use Status: Former Tobacco user e-Cigarette/Vaping Use: Never Used Second Hand Smoke Exposure: No Advance Directives: No Advance Directives Information Provided: No Do you have a plan to hurt others: No Plan service: No Current occupational status: retired Cognitive needs: Yes Hearing needs: No Vision needs: Yes Meds Allergies Allergy/AdvReac Type Severity Reaction Status Date / Time Penicillins Allergy Intermediate ITCHING Verified 03/06/24 20:41 Home Medications ?Medication ?Instructions ?Recorded ?Confirmed ?Last Taken ?Type CPAP (CPAP Machine/Device) 06/24/23 01/15/24 Unknown History insulin glargine U-300 conc 300 unit subcut 03/03/24 Unknown History unit/mL (3 mL) subcutaneous pen (Toujeo Max U-300 SoloStar) Physical Exam Vital Signs and Narrative: Vital Signs: Last Vital Signs Temp 98.1 F 03/07/24 00:56 Pulse 76 03/07/24 00:56 Resp 18 03/07/24 00:56 BP 126/64 03/07/24 00:56 Pulse Ox 94 03/07/24 00:56 O2 Del Method Nasal Cannula 03/07/24 00:56 O2 Flow Rate 3 03/07/24 00:56 BMI result Body Mass Index 35.2 Middle-aged male lying in bed in mild distress on supplemental oxygen Neck supple, no JVD Regular rate and rhythm, S1-S2 heard Right-sided crackles present with mild expiratory wheezing Abdomen soft nontender, no guarding, no rigidity Patient is awake, alert and oriented to self, place, time and person ; no focal motor deficit Psych: Normal mood No pedal edema Results Labs 03/06/24 21:09 03/06/24 21:10 Labs: Laboratory Results - last 24 hr 03/06/24 03/06/24 03/06/24 21:09 21:10 21:25 MCV 91.0 MCH 29.9 MCHC 32.8 RDW 14.9 Plt Count 225 MPV 9.8 Immature Gran % (Auto) 0.3 Neut % (Auto) 59.2 Lymph % (Auto) 23.7 [place] % (Auto) 12.1 H Eos % (Auto) 4.2 H Baso % (Auto) 0.5 Lymph # (Auto) 2.5 Tarrant # (Auto) 1.3 H Eos # (Auto) 0.4 Baso # (Auto) 0.1 Abs Immat Gran (auto) 0.03 Absolute Neuts (auto) 6.2 Absolute Nucleated RBC 0.000 Nucleated RBC % (auto) 0.0 PT 10.5 L INR 0.9 APTT 35.0 Anion Gap 13 14 Estim Creat Clear Calc 32.2 32.1 Estimated GFR 29 28 POC Glucose 228 H Random Glucose 245 H 247 H Calcium 9.3 9.2 Total Bilirubin 0.2 AST 19 ALT 23 Alkaline Phosphatase 67 Troponin I High Sens 5.0 B-Natriuretic Peptide 106 H Total Protein 6.9 Albumin 3.6 Influenza Type A (PCR) Influenza Type B (PCR) RSV RNA Qual (PCR) SARS-CoV-2 RNA (RT-PCR) 03/06/24 23:16 MCV MCH MCHC RDW Plt Count MPV Immature Gran % (Auto) Neut % (Auto) Lymph % (Auto) [place] % (Auto) Eos % (Auto) Baso % (Auto) Lymph # (Auto) [place] # (Auto) Eos # (Auto) Baso # (Auto) Abs Immat Gran (auto) Absolute Neuts (auto) Absolute Nucleated RBC Nucleated RBC % (auto) PT INR APTT Anion Gap Estim Creat Clear Calc Estimated GFR POC Glucose Random Glucose Calcium Total Bilirubin AST ALT Alkaline Phosphatase Troponin I High Sens B-Natriuretic Peptide Total Protein Albumin Influenza Type A (PCR) NEGATIVE Influenza Type B (PCR) NEGATIVE RSV RNA Qual (PCR) NEGATIVE SARS-CoV-2 RNA (RT-PCR) NEGATIVE Imaging Radiologist's Impressions: Impressions Chest CT 03/06/24 23:40 IMPRESSION: Elevation of the right hemidiaphragm with regions of dense opacity in the adjacent inferior right middle and lower lobes which are favored to at least mostly represent atelectasis in this setting. The possibility of some superimposed consolidation cannot be excluded in the proper clinical setting. Imaging follow-up is recommended; if this persists, consider further evaluation with bronchoscopy. Assessment and Plan (1) Hypoxia: Status: Acute (2) Pneumonia: Status: Acute Plan This is a 73-year-old male with pertinent history of combined systolic and diastolic congestive heart failure, insulin-dependent diabetes mellitus, CAD status post CABG, COPD not on home oxygen, ROE on CPAP, CKD, mood disorder who presents to the emergency department for evaluation of dyspnea. #. Acute hypoxic respiratory failure due to right-sided pneumonia: Will admit patient with supplemental oxygen. Initiating empiric IV antibiotics for cap. Obtaining sputum culture. No sepsis #. COPD with mild exacerbation in the setting of above: Initiating systemic steroids, scheduled and p.r.n. DuoNebs. Continue home inhaler #. Acute kidney injury stage I on CKD: Given IV crystalloids in the ER. Monitor creatinine urine output. Avoid nephrotoxins #. Insulin-dependent diabetes mellitus with hyperglycemia: Initiating basal plus insulin regimen #. Congestive heart failure with combined systolic and diastolic dysfunction: Hold furosemide and losartan in the setting of ALPESH. Resume as appropriate. Continue beta-anthony #. CAD status post CABG: On high-intensity statin and aspirin #. Hypertension: Continue amlodipine and beta-anthony #. Mood disorder: Continue home mood stabilizers Med rec pending DVT prophylaxis: Lovenox Full code Admit as inpatient and will require two night minimum hospital stay for supplemental oxygen, IV antibiotics (as above), which is not possible in a lesser acute setting. Quality Stroke Does the patient have a stroke diagnosis?: No VTE Prior VTE?: No VTE Risk Level:: Medical - moderate - high VTE Device Contraindication: Treatment Not Indicated VTE Drug Contraindication: N/A - Med Ordered
[2024-03-07 03:09] LABS: Venous Blood Gas Refer to POC result
[2024-03-07 03:11] LABS: VBG Base Excess 7.3 mmol/L; VBG HCO3 33 mmol/L (22-26); VBG pCO2 53 mmHg; VBG pO2 60 mmHg
[2024-03-07] MEDS: cefTRIAXone sodium 1 GM in 0.9 % Sodium Chloride 50 ML IV ×2 (03:16→23:03)
[2024-03-07] MEDS: Azithromycin 500 MG in 0.9 % Sodium Chloride 250 ML 125 MG IV ×2 (03:17→23:40)
--- NOTE | 2024-03-07 03:19 | PC.NURSE ---
pt oub with assist to the rest room. pt repositioned in bed for comfort, medicated per mar. Pt awaiting bed assignment.
--- NOTE | 2024-03-07 04:15 | PC.NURSE ---
pt oob to rest room with assist.
--- NOTE | 2024-03-07 04:43 | PC.NURSE ---
respiratory into set up bipap
[2024-03-07] MEDS: 0.9 % Sodium Chloride 500 ML IV (05:03)
--- NOTE | 2024-03-07 05:06 | PC.NURSE ---
500ml normal saline bolus given, per Dr. Vazquez
[2024-03-07 05:44] LABS: Glucose, Whole Blood 134 mg/dL (60-115)
[2024-03-07 05:46] LABS: MANUAL DIFF FLAG NO
[2024-03-07 05:49] LABS: Basophils Absolute Auto 0.1 X10*3/uL (0.0-0.2); Basophils Percent Auto 0.5 % (0-2); Eosinophils Absolute Auto 0.6 X10*3/uL (0.0-0.4); Eosinophils Percent Auto 5.3 % (0-4); Hematocrit 38.8 % (42.0-52.0); Hemoglobin 12.5 g/dl (14.0-18.0); Imm Gran Abs Auto 0.02 X10*3/uL (0.00-0.03); Imm Gran Pct Auto 0.2 % (0.0-0.4); Lymphocytes Absolute Auto 1.7 X10*3/uL (1.2-4.9); Lymphocytes Percent Auto 16.1 % (20-40); Mean Corpuscular HGB Conc 32.2 g/dl (31.0-36.0); Mean Corpuscular Hemoglobin 29.6 pg (27.0-33.0); Mean Corpuscular Volume 91.7 fL (80.0-98.0); Mean Platelet Volume 9.4 fL (9.4-12.4); Monocytes Absolute Auto 1.1 X10*3/uL (0.1-1.2); Monocytes Percent Auto 10.9 % (2-11); Platelet Count 214 X10*3/uL (160-400); Red Blood Count 4.23 X10*6/uL (4.60-5.80); White Blood Count 10.5 X10*3/uL (4.8-10.8)
[2024-03-07] MEDS: Insulin Glargine,Hum.rec.anlog 100 UNIT/ML 10 ML VIAL 45 UNIT SUBCUT (05:54)
--- NOTE | 2024-03-07 05:56 | PC.NURSE ---
Notified Dr. Vazquez of pt POG 138, per DR. George mendez to administer morning insulin
[2024-03-07 06:08] LABS: Anion Gap 14 (12-20); Blood Urea Nitrogen 31 mg/dL (9-16); Calcium 9.4 mg/dL (8.4-10.2); Carbon Dioxide 28 mmol/L (22-29); Chloride 103 mmol/L (96-108); Creatinine Clr Calc Pharmacy 34.9; Estimated Glomerular Filt Rate 31; Glucose Random 129 mg/dL (60-115); Potassium 4.3 mmol/L (3.3-5.1); Sodium 141 mmol/L (135-145)
[2024-03-07 07:44] LABS: Glucose, Whole Blood 116 mg/dL (60-115)
[2024-03-07] MEDS: Albuterol/Iprat 2.5/0.5MG 3 ML AMPUL.NEB INHALE ×4 (08:14→18:56)
[2024-03-07] MEDS: 0.9 % Sodium Chloride Flush 3 ML SYRINGE IVFLUSH ×3 (08:31→23:05)
[2024-03-07 10:07] LABS: Glucose, Whole Blood 112 mg/dL (60-115)
--- NOTE | 2024-03-07 10:16 | PM.EVENT ---
Event Note Date of Service: 03/07/24 Event Note: Chart reviewed/patient examined. Agree with H&P as outlined by Dr. Vazquez. Continue plan as outlined. Exam unchanged since admit Time Spent With Patient Time: Total time managing care of this patient today ____ minutes.
[2024-03-07] MEDS: predniSONE 20 MG TABLET 40 MG PO (10:30)
[2024-03-07] MEDS: Enoxaparin Sodium 40 MG/0.4 ML SYRINGE SUBCUT (10:31)
--- NOTE | 2024-03-07 10:59 | PHA.MEDREC ---
Addendum entered by Bela Martines RPh 03/07/24 12:01: [facility] has reviewed med rec done by jason Addendum entered by Jason Kasper 03/07/24 11:38: at bedside reports the Novolog is 35 units with breakfast, 40 units with lunch, and 45 units with dinner. Original Note: Pharmacy Consult ? Medication Reconciliation Pharmacy has completed the medication reconciliation. Spoke with patient and his through an short order cook. reports he uses the Mounjaro on Wednesdays and had it last Saturday. They both said he did not start the antibiotic he was prescribed. states he is still taking furosemide 40 mg daily, last refill was 09/08/23 for a 90DS. Patient reports he still uses gabapentin prn for carpal tunnel pain in is hand, last fill was 03/11/23. states he was recently switched from Toujeo to Tresiba and confirmed 90 units at bedtime and he also uses novolog TID on a sliding scale. They both state he takes meclizine 1 tablet daily scheduled. He does not take trazodone or cyclobenzaprine. They said he last took his medications yesterday.
[2024-03-07 11:20] LABS: Glucose, Whole Blood 86 mg/dL (60-115)
[2024-03-07 16:13] LABS: Glucose, Whole Blood 216 mg/dL (60-115)
[2024-03-07] MEDS: Insulin Lispro 100 UNIT/ML 3 ML VIAL SUBCUT ×2 (17:05→22:41)
[2024-03-07 21:22] LABS: Glucose, Whole Blood 399 mg/dL (60-115)
[2024-03-08 03:35] VITALS: BP 104/62; PULSE 80; RESP 20; TEMP 36.4; O2SAT 92
--- NOTE | 2024-03-08 05:28 | PC.NURSE ---
Pt's bedtime POC was 399. MD Vazquez made aware of pt's critical POC. 10 units of Lispro given per sliding scale, see MAR. No new orders at this time. Will continue to monitor. Plan of care ongoing.
[2024-03-08 08:00] VITALS: BP 140/73; PULSE 74; RESP 14; TEMP 36.2; O2SAT 93
[2024-03-08 08:11] LABS: Glucose, Whole Blood 180 mg/dL (60-115)
[2024-03-08 08:40] VITALS: PULSE 74; RESP 14; O2SAT 95
[2024-03-08] MEDS: Albuterol/Iprat 2.5/0.5MG 3 ML AMPUL.NEB INHALE ×2 (08:40→11:27)
[2024-03-08] MEDS: Aspirin Enteric Coated 81 MG TABLET.DR PO (09:12)
[2024-03-08] MEDS: metFORMIN HCl 1,000 MG TABLET 1000 MG PO (09:12)
[2024-03-08] MEDS: Losartan Potassium 25 MG TABLET PO (09:12)
[2024-03-08] MEDS: predniSONE 20 MG TABLET 40 MG PO (09:12)
[2024-03-08] MEDS: Cholecalciferol (Vitamin D3) 25 MCG TABLET 50 MCG PO (09:12)
[2024-03-08] MEDS: Atorvastatin Calcium 80 MG TABLET PO (09:12)
[2024-03-08] MEDS: Pramipexole Di-HCL 0.25 MG TABLET 0.5 MG PO (09:12)
[2024-03-08] MEDS: amLODIPine Besylate 5 MG TABLET PO (09:12)
[2024-03-08] MEDS: Enoxaparin Sodium 40 MG/0.4 ML SYRINGE SUBCUT (09:12)
[2024-03-08] MEDS: Metoprolol Succinate ER 100 MG TAB.ER.24H PO (09:12)
[2024-03-08] MEDS: Insulin Lispro 100 UNIT/ML 3 ML VIAL SUBCUT ×2 (09:13→12:20)
[2024-03-08] MEDS: Furosemide 40 MG TABLET PO (09:13)
[2024-03-08] MEDS: 0.9 % Sodium Chloride Flush 3 ML SYRINGE IVFLUSH (09:15)
[2024-03-08 11:21] LABS: Glucose, Whole Blood 297 mg/dL (60-115)
--- NOTE | 2024-03-08 11:24 | P.DS_ITS ---
DS: Providers Provider Date of Service: 03/08/24 Date of admission: 03/07/24 02:33 Date of discharge: 03/08/24 Primary care physician: Sophie Fulton MD DS: Diagnosis Discharge Diagnosis (1) Hypoxia: Status: Acute (2) Pneumonia: Status: Acute DS: Summary Hospital Course Hospital Course: 73-year-old male with pertinent history of combined systolic and diastolic congestive heart failure, insulin-dependent diabetes mellitus, CAD status post CABG, COPD not on home oxygen, ROE on CPAP, CKD, mood disorder who presents to the emergency department for evaluation of dyspnea. Patient states he has been having dyspnea for the last few days. It is worse with exertion. It is not worse with lying down. No PND. Patient also complains of cough with greenish sputum. Patient saw his PCP and got blood work done. His potassium was found to be elevated and he was sent to the ER. Patient states he is compliant with CPAP at bedtime but does not use supplemental oxygen during the day. No fever, chills, nausea, vomiting, chest pain, abdominal pain, changes in urinary or bowel habits. History obtained with the help of surveying crew rodman. In the emergency department, imaging concerning for pneumonia and patient requiring 2 L supplemental oxygen. Hospital Course Patient admitted to general medical floor and started on ceftriaxone and azithromycin for likely community-acquired pneumonia. He was also given pulse dose steroids. Over the course of the next 24 hours, he is now without an oxygen requirement. Discussion was had with family (son speaks Italian); now that he does not require oxygen they wished to bring him home so that he does not contract anything else from the hospital. At this point he is ambulatory to the bathroom without extreme dyspnea and the family says this is baseline. This time I believe him to medically acceptable for discharge to home Time Attestation Discharge Coordination Time (in mins): 35 Quality: Safe Use of Opioids Does Pt have an Active Cancer Diagnosis on the Problem List?: No Quality: Stroke Does the patient have a stroke diagnosis?: No Physical Exam Vital Signs: Vital Signs: Last Vital Signs Temp 97.2 F 03/08/24 08:00 Pulse 74 03/08/24 08:40 Resp 14 03/08/24 08:40 BP 140/73 H 03/08/24 08:00 Pulse Ox 93 03/08/24 08:00 O2 Del Method Room Air 03/08/24 08:00 O2 Flow Rate 2 03/07/24 19:57 BMI result Body Mass Index 35.2 Const: Other: Awake alert able speak in full sentences Resp: Other: Diminished at bases without expiratory wheezes Cardio: Other: No S4; positive S1-S2; no S3 murmurs rubs or gallops GI: Other: Soft nontender nondistended normoactive bowel sounds Extrem: Other: No edema bilaterally DS: Data Data Completed and Pending Labs on day of discharge: Laboratory Results - last 24 hr 03/07/24 03/07/24 03/08/24 16:02 21:11 07:19 POC Glucose 216 H 399 H* 180 H 03/08/24 11:10 POC Glucose 297 H Discharge Plan Discharge Anticipated Discharge Date/Time: 03/08/24 11:15 Patient Disposition: Home, Self-Care Discharge Diagnosis: Pneumonia Referrals: Sophie Enrique MD [Primary Care Provider] - 1 Week Discharge Medications: New doxycycline hyclate 100 mg tablet 100 mg PO BID Qty: 14 0RF prednisone 20 mg tablet See Rx Instructions .Route .COMPLEX Qty: 18 0RF Rx Instructions: 20 mg orally; 3 tabs daily for 3 days, 2 tabs daily for 3 days, 1 tab daily for 3 days Continued (DME) blood-glucose meter [FreeStyle Lite Meter] Kit See Rx Instructions .ROUTE .MEDSUPPLY Qty: 1 0RF Rx Instructions: As directed (DME) FreeStyle Lite Strips Strip See Rx Instructions .Route Qty: 100 11RF Rx Instructions: As directed 4 times a day albuterol sulfate [Ventolin HFA] 90 mcg/actuation HFA aerosol inhaler 2 puff PO Q6H PRN (Reason: for wheezing) Qty: 18 5RF rosuvastatin 40 mg tablet 40 mg PO DAILY Qty: 90 1RF amlodipine 5 mg tablet 5 mg PO DAILY Qty: 90 0RF metoprolol succinate 100 mg tablet extended release 24 hr 100 mg PO DAILY Qty: 90 0RF pramipexole 0.5 mg tablet 0.5 mg PO DAILY Qty: 90 0RF galantamine 8 mg capsule,ext rel. pellets 24 hr 8 mg PO QAM Qty: 90 1RF famotidine 20 mg tablet 20 mg PO BEDTIME 90 Days Qty: 90 1RF (DME) FreeStyle Manjit 3 [place] Misc See Rx Instructions .Route Qty: 1 11RF Rx Instructions: As directed (DME) FreeStyle Manjit 3 Sensor Device See Rx Instructions .Route Qty: 1 0RF Rx Instructions: As directed losartan 25 mg tablet 25 mg PO DAILY 90 Days Qty: 90 0RF aspirin [Enteric Coated Aspirin] 81 mg tablet,delayed release (DR/EC) 81 mg PO DAILY Qty: 90 0RF metformin 1,000 mg tablet 1,000 mg PO BID 90 Days Qty: 180 1RF furosemide 40 mg tablet 40 mg PO DAILY 90 Days Qty: 90 1RF meclizine 12.5 mg tablet 12.5 mg PO DAILY gabapentin 100 mg capsule 100 mg PO BEDTIME PRN (Reason: Pain) insulin aspart U-100 [Novolog FlexPen U-100 Insulin] 100 unit/mL (3 mL) insulin pen 35 unit subcut DAILY@0730 Mounjaro 5 mg/0.5 mL pen injector 5 mg subcut WE insulin aspart U-100 [Novolog FlexPen U-100 Insulin] 100 unit/mL (3 mL) insulin pen 40 unit subcut DAILY@1130 insulin aspart U-100 [Novolog FlexPen U-100 Insulin] 100 unit/mL (3 mL) insulin pen 45 unit subcut DAILY@1630 (DME) pen needle, diabetic 32 gauge x 5/32 needle See Rx Instructions subcut .MEDSUPPLY Qty: 120 3RF Rx Instructions: 4 times a day As directed cholecalciferol (vitamin D3) 50 mcg (2,000 unit) capsule 50 mcg PO DAILY 90 Days Qty: 90 1RF insulin degludec [Tresiba FlexTouch U-200] 200 unit/mL (3 mL) insulin pen 90 unit subcut BEDTIME 30 Days Qty: 13.5 2RF Trelegy Ellipta 100-62.5-25 mcg blister with device 1 inh inhalation DAILY 28 Days Qty: 28 6RF (DME) CPAP Machine/Device Device See Rx Instructions .Route Rx Instructions: As directed Discharge Orders: Discharge Order (Routine); Ordered 03/08/24 Ordered By: Alcon Hancock Diet: Advance to usual diet Activity on Discharge: As tolerated Stand Alone Forms: Patient Portal Discharge page Print Language: Armenian Care Plan Goals: Resume all medicines as taken before the hospital. Metformin must be taken twice daily Lantus should be taken at bedtime Continue all other insulin as taken previously Amlodipine and losartan should be taken in the morning with the metformin Metoprolol she will be taken after lunch Lasix should be taken in the morning Health Concerns: Doxycycline 100 mg twice daily has been added to the regimen as well as pr ednisone taper. Take as ordered Plan of Treatment: Follow up with PCP next available Assessment: See discharge summary
[2024-03-08 11:27] VITALS: PULSE 72; RESP 16; O2SAT 90
--- NOTE | 2024-03-08 12:14 | MHC.CM.PN ---
IMM delivered. Patient lives in an apartment w/ . Ambulates w/ cane or walker PRN. Has CAMP RECREATION SPECIALIST 18 hrs/week. Reports [facility] RN visits 1x/month. PCP Sophie Fulton MD States he has an HCP naming his as [facility]. Copy requested. DP: Medically cleared for dc home self care. Family is at bedside to transport. RN aware.
== END 2024-03-08 12:39 | disposition home or self-care (01) | DRG 193 ==
LOC: HO.ED 03-07 02:13 → HO.EDOVER 03-07 02:41 → HO.S3 03-07 07:59
PROVIDERS: Nurse Practitioner Family; Admitting Provider Student in an Organized Health Care Education/Training Program; Emergency Provider Emergency Medicine; PCP Internal Medicine; Visit Provider Hospitalist
DX: J18.9 Pneumonia, unspecified organism (principal); J96.01 Acute respiratory failure with hypoxia; J44.0 Chronic obstructive pulmonary disease with (acute) lower respiratory infection; I13.0 Hypertensive heart and chronic kidney disease with heart failure and stage 1 through stage 4 chronic kidney disease, or unspecified chronic kidney disease; N17.9 Acute kidney failure, unspecified; J44.1 Chronic obstructive pulmonary disease with (acute) exacerbation; I50.42 Chronic combined systolic (congestive) and diastolic (congestive) heart failure; I25.10 Atherosclerotic heart disease of native coronary artery without angina pectoris; E11.42 Type 2 diabetes mellitus with diabetic polyneuropathy; F39 Unspecified mood [affective] disorder; G47.33 Obstructive sleep apnea (adult) (pediatric); N18.9 Chronic kidney disease, unspecified; E11.22 Type 2 diabetes mellitus with diabetic chronic kidney disease; Z20.822 Contact with and (suspected) exposure to COVID-19; Z87.891 Personal history of nicotine dependence; Z95.810 Presence of automatic (implantable) cardiac defibrillator; Z95.1 Presence of aortocoronary bypass graft; Z79.4 Long term (current) use of insulin; Z79.51 Long term (current) use of inhaled steroids; Z79.82 Long term (current) use of aspirin; Z79.84 Long term (current) use of oral hypoglycemic drugs; Z79.899 Other long term (current) drug therapy
CPT/HCPCS: 0241U; 36415; 71250; 80048; 80053; 82803; 82947; 83880; 84484; 85025; 85610; 85730; 93005; 94640; 94660; 99285; J0456; J0696; J1650

== ENCOUNTER → 2024-03-06 20:44 | Outpatient (BNV) | payer OTHER, SELFPAY | PROVIDERS: Admitting Provider Student in an Organized Health Care Education/Training Program; Emergency Provider Emergency Medicine; PCP Internal Medicine; Visit Provider Internal Medicine Cardiovascular Disease | DX: R06.02 Shortness of breath (principal); R07.9 Chest pain, unspecified | CPT/HCPCS: 93010 ==

== ENCOUNTER → 2024-03-07 02:33 | Outpatient (BNV) | payer OTHER, SELFPAY | PROVIDERS: Admitting Provider Student in an Organized Health Care Education/Training Program; Emergency Provider Emergency Medicine; PCP Internal Medicine; Visit Provider Student in an Organized Health Care Education/Training Program | DX: R09.02 Hypoxemia (principal); J18.9 Pneumonia, unspecified organism | CPT/HCPCS: 99223; 99239; 99499 ==

== ENCOUNTER 2024-03-12 14:59 | Outpatient (AMB) | payer OTHER, SELFPAY ==
--- NOTE | 2024-03-12 15:02 | A.OFFVIS_ITS ---
Vital Signs 03/12/24 15:05 Height 5 ft 7 in Weight 202 lb 13.204 oz BMI 31.8 BP 122/78 Blood Pressure Location Rt brachial Pulse 79 Pulse Source Pulse Oximeter Intake Visit Reasons: Type 2 DM 3wk f/u/CONFIRMED Intake Note: Patient presents today for a follow-up on Type 2 Diabetes Mellitus: Last Diabetic Eye Exam: 6 MONTHS AGO Last Podiatry Exam- Does not see a Assembler Dc [place] Random Glucose- 109 mg/dL, 03:09, Pt self check 67 mg/dL, 3 glucose tabs were given, re-checked 49 mg/dL, re-check 84 mg/dL Most recent HbA1c- 11.9 %, 02/20/2024 Needle Grinder Required: Yes Needle Grinder Services: Needle Grinder Present Needle Grinder Name: [facility] Needle Grinder- Sonu Information Interpreted: non-clinical & clinical Accompanied by: Self / Same As Patient Allergies Penicillins Allergy (Intermediate, Verified 03/06/24 20:41) ITCHING HPI Comments Details: Details: [73] YO [M/F] who is seen in f/u for T2DM. He was seen for initial consult Most recent A1C 11/18/23 10.9%, 07/18/23 9.5% Initially diagnosed with T2DM approx 30 years ago. On insulin last six years. Current regimen: Tresiba 90units Novolog breakfast 35 units lunch 40 units supper 45 units metformin 1000mg bid Freestyle suleman sensor [ 3] average glucose: [261 ] Glucose Management indicator 9.6 % TIme in range: Fifty-five % very high (above 250) 19 % high (181-250) 23 % in range (70-180] 3 % low (69-55) 0 % very low (below 54) He was hospitalized with CAP and was discharged 4 days ago on a steroid taper. He had an infection on his foot which has completely healed. Glucose sensor indicates low reading in the middle of the night, highs during the day. Reports low sugars [yes over night He also had one today in the office after taking insulin dose and skipping lunch]. He was treated with 3 glucose tablets, small can of GA and 1/2 sandwich. Treats lows with [juice/3 sugar tablets]. [Checks] sugar after to ensure it is rising. Has eyes checked every six months [Denies ] neuropathy does not see podiatry [+] nephropathy, on [ARB] [Has] HLD, on [statin]. Has multiple cardiac co morbidities. [facility] Medical History CHF (congestive heart failure) Type 2 diabetes mellitus Chronic heart failure with preserved ejection fraction (HFpEF) Cardiomyopathy Hypoglycemia due to type 2 diabetes mellitus Acute on chronic systolic (congestive) heart failure Defibrillator discharge Hospital discharge follow-up ROE (obstructive sleep apnea) Hypothyroidism Reactive airway disease [id number] syndrome Obesity due to excess calories ROE (obstructive sleep apnea) ROE on CPAP Ischemic cardiomyopathy Atherosclerotic cardiovascular disease GERD (gastroesophageal reflux disease) Hypothyroidism Type 2 diabetes mellitus with hyperglycemia, with long-term current use of insulin Type 2 diabetes mellitus with diabetic polyneuropathy Essential hypertension Chronic systolic (congestive) heart failure ICD (implantable cardioverter-defibrillator) in place HTN (hypertension) CAD (coronary artery disease) Hyperlipidemia LDL goal <70 Dyspnea Bibasilar crackles Sleep apnea Insomnia Delusion of persecution Surgical History H/O inguinal hernia repair History of tooth extraction Hx of CABG (~2019) History of open heart surgery History of bilateral cataract extraction Family History Father No problems noted. Mother CVD (cardiovascular disease) Social History Household Members: Spouse Housing: House Do you presently have visiting nurse or other home services: Yes (every 15 days) Alcohol intake: former Patient Tobacco Use Status: Former Tobacco user e-Cigarette/Vaping Use: Never Used Second Hand Smoke Exposure: No service: No Current occupational status: retired Cognitive needs: Yes Hearing needs: No Vision needs: Yes Physical Exam Vital Signs: Last Vital Signs Pulse 79 03/12/24 15:05 BP 122/78 03/12/24 15:05 BMI result Body Mass Index 31.8 Results Reviewed Results Reviewed: Laboratory Last Values Glucose (Clinic) 109 mg/dL (60-115) 03/12/24 15:09 Laboratory Tests 02/27/24 03/06/24 03/07/24 10:07 21:09 05:42 Plt Count 214 AST 19 ALT 23 Albumin 3.6 Urine Creatinine 188.28 Urine Microalbumin > 2000.0 Microalb/Creat Ratio 1062.2 H Assessment & Plan Assessment & Plan (1) Type 2 diabetes mellitus: Code(s): E11.9 - Type 2 diabetes mellitus without complications Category: Medical Plan: Type 2 diabetic with poor control. Recently hospitalized and on steroids for another 4 days. Decrease Tresiba to 84 units due to middle of night lows. Novolog 45 am 40 lunch and 40 supper instructed to take insulin with meals. Continue mounjaro and will stop metformin after he completes steroid course. . I will check on patient tomorrow to see how he is doing. Extensively reviewed rule of 15. He was asked to contact our office if he is having any furthur lows or if sugar is elevated. Orders: Orders Complete Blood Count Auto Diff 03/06/24 E11.9 - Type 2 diabetes mellitus without complications Potassium 03/06/24 E11.9 - Type 2 diabetes mellitus without complications Referrals Nephrology Referral N18.32 - Chronic kidney disease, stage 3b Coding Level of Care Code Est Pt Level 5 (92848) Complex EM visit Add On G2211 Diagnoses Type 2 diabetes mellitus E11.9 Time Spent (min) 60 Comment Time spent reviewing labs/previous provider notes, face to face, chart documentation
[2024-03-12 15:05] VITALS: BP 122/78; PULSE 79; BMI 31.8
[2024-03-12 15:15] LABS: Glucose, Whole Blood 109 mg/dL (60-115)
[2024-03-14 12:00] LABS: Glucose, Whole Blood 49 mg/dL (60-115)
[2024-03-14 12:02] LABS: Glucose, Whole Blood 84 mg/dL (60-115)
== END 2024-03-12 15:52 | disposition home or self-care (01) ==
PROVIDERS: PCP Internal Medicine; Visit Provider Nurse Practitioner Adult Health
DX: E11.9 Type 2 diabetes mellitus without complications (principal)
CPT/HCPCS: 99215; G2211

== ENCOUNTER → 2024-03-12 14:59 | Outpatient (BNVA) | payer OTHER, SELFPAY | PROVIDERS: PCP Internal Medicine; Visit Provider Nurse Practitioner Adult Health | DX: E11.9 Type 2 diabetes mellitus without complications (principal) | CPT/HCPCS: 82947; 99212 ==

== ENCOUNTER 2024-03-16 13:22 | Outpatient (AMB) | payer OTHER, SELFPAY ==
[2024-03-16 13:59] VITALS: BP 100/56; PULSE 85; BMI 33.5
--- NOTE | 2024-03-16 13:59 | MHC.OFFVIS ---
Vital Signs 03/16/24 13:59 Height 5 ft 7 in Weight 213 lb 13.574 oz BMI 33.5 BP 100/56 L Blood Pressure Location Lt brachial Position Sitting Pulse 85 Pulse Source Pulse Oximeter Intake Visit Reasons: 6 mth f/up and med ck Banquet Prep Cook Required: Yes Banquet Prep Cook Name: Naga [id number]/syriac Accompanied by: Self / Same As Patient Allergies Penicillins Allergy (Intermediate, Verified 03/06/24 20:41) ITCHING Medication List - Last Reconciled 03/16/24 by Joey Vickers MD amlodipine 5 mg PO DAILY aspirin (Enteric Coated Aspirin) 81 mg PO DAILY blood sugar diagnostic (FreeStyle Lite Strips) As directed 4 times a day blood-glucose meter (FreeStyle Lite Meter kit) As directed blood-glucose meter,continuous (FreeStyle Manjit 3 [place]) As directed blood-glucose sensor (FreeStyle Manjit 3 Sensor device) As directed cholecalciferol (vitamin D3) 50 mcg PO DAILY 90 days CPAP (CPAP Machine/Device) As directed doxycycline hyclate 100 mg PO BID famotidine 20 mg PO BEDTIME 90 days rexhggrjisl-grudatyij-oawcoowo 100-62.5-25 mcg (Trelegy Ellipta) 1 inh inhalation DAILY 28 days furosemide 40 mg PO DAILY 90 days gabapentin 100 mg PO BEDTIME PRN galantamine ER 8 mg PO QAM insulin aspart U-100 (Novolog FlexPen U-100 Insulin aspart) 35 units subcut DAILY@0730 insulin aspart U-100 (Novolog FlexPen U-100 Insulin aspart) 40 units subcut DAILY@1130 insulin aspart U-100 (Novolog FlexPen U-100 Insulin aspart) 45 units subcut DAILY@1630 losartan 25 mg PO DAILY 90 days meclizine 12.5 mg PO DAILY metformin 1,000 mg PO BID 90 days metoprolol succinate ER 100 mg PO DAILY pen needle, diabetic 4 times a day As directed pramipexole 0.5 mg PO DAILY prednisone 20 mg orally; 3 tabs daily for 3 days, 2 tabs daily for 3 days, 1 tab daily for 3 days rosuvastatin 40 mg PO DAILY tirzepatide (Mounjaro) 5 mg subcut WE Ventolin HFA 90 mcg/actuation (albuterol sulfate) 2 puffs PO Q6H PRN NS HPI Comments Details: Ed returns for follow-up regarding coronary disease. He has a history of coronary artery bypass surgery, presumed to be around 2019 in [place]. Also has an ICD in place. Overall, no clear cardiac symptoms. No angina or shortness of breath. Discussed with patient using seismic interpreter. 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 Obesity due to excess calories ROE (obstructive sleep apnea) ROE on CPAP Ischemic cardiomyopathy Atherosclerotic cardiovascular disease GERD (gastroesophageal reflux disease) Hypothyroidism Type 2 diabetes mellitus with hyperglycemia, with long-term current use of insulin Type 2 diabetes mellitus with diabetic polyneuropathy Essential hypertension Chronic systolic (congestive) heart failure ICD (implantable cardioverter-defibrillator) in place HTN (hypertension) CAD (coronary artery disease) Hyperlipidemia LDL goal <70 Dyspnea Bibasilar crackles Sleep apnea Insomnia Delusion of persecution Surgical History H/O inguinal hernia repair History of tooth extraction Hx of CABG (~2019) History of open heart surgery History of bilateral cataract extraction Family History Father No problems noted. Mother CVD (cardiovascular disease) Social History Household Members: Spouse Housing: House Do you presently have visiting nurse or other home services: Yes (every 15 days) Alcohol intake: former Patient Tobacco Use Status: Former Tobacco user e-Cigarette/Vaping Use: Never Used Second Hand Smoke Exposure: No service: No Current occupational status: retired Cognitive needs: Yes Hearing needs: No Vision needs: Yes Review of Systems Const Denies chills, Denies fatigue, Denies fever(s), Denies weight gain and Denies weight loss ENT Denies dizziness Card Denies chest pain, Denies leg edema, Denies lightheadedness, Denies palpitations, Denies dyspnea on exertion, Denies orthopnea and Denies other Resp Denies cough and Denies dyspnea on exertion GI Denies hematochezia and Denies change in stool character Musc Denies abnormal gait, Denies muscle weakness, Denies numbness, Denies radiating pain into limb and Denies tingling Neuro Denies abnormal gait, Denies dizziness, Denies numbness and Denies tingling Endo Denies fatigue and Denies palpitations Physical Exam Vital Signs: Last Vital Signs Pulse 85 03/16/24 13:59 BP 100/56 L 03/16/24 13:59 BMI result Body Mass Index 33.5 Const General: comfortable and no acute distress Orientation/consciousness: patient oriented x3 HEENT Other: Unremarkable Head: Yes normal to inspection Neck Neck: Yes normal visual inspection Chest Chest palpation & inspection: normal inspection of the chest Resp Auscultation: clear to auscultation bilaterally Cardio Palpation: normal PMI Heart sounds: S1 normal heart sound present, S2 normal heart sound present, no gallops, no murmurs and no rubs GI Palpation (GI): Soft to palpation Back/Spine/Pelvis Other: unremarkable Skin General skin exam: no rashes or lesions noted Neuro General: patient oriented x3 Extrem General: Yes normal to inspection Psych Mental Status: mental status grossly normal Office Procedures Cardiac Device Check Cardiac Device Check Details: ICD interrogated today. Single-chamber device, programmed VVI. Battery status 7.2 years. Normal lead parameters. [place] episodes. [id number] Cardiac Device Check, single lead implantable defibrillator Procedure code (CPT) selection complete Assessment & Plan Assessment & Plan (1) Atherosclerotic cardiovascular disease: Code(s): I25.10 - Atherosclerotic heart disease of [place] coronary artery without angina pectoris Category: Medical (2) Status post aorto-coronary artery bypass graft: Code(s): Z95.1 - Presence of aortocoronary bypass graft Category: Surgical (3) Chronic heart failure with preserved ejection fraction (HFpEF): Code(s): I50.32 - Chronic diastolic (congestive) heart failure Category: Medical (4) Essential hypertension: Code(s): I10 - Essential (primary) hypertension Category: Medical (5) ICD (implantable cardioverter-defibrillator) in place: Comment: VIS Researchtronic single chamber Code(s): Z95.810 - Presence of automatic (implantable) cardiac defibrillator Category: Medical Plan Cardiac studies reviewed. Per records, status post CABG December 2018 in [place]. At that time, LVEF documented as 32%. In the most recent echocardiogram in 2022, LVEF is 48%. Most recently, cardiac BNP levels have been around 100. Nothing too abnormal. Clinically, no evidence of congestive heart failure. Continue beta-blockers, losartan, diuretics. With regard to coronary disease, no anginal-type symptoms. May remain on aspirin and statins. Last LDL 68 mg/dL. With regard to hypertension, on amlodipine, losartan. Stable blood pressure. Possibly Farxiga or Jardiance but not clear of compliance. ICD can be followed remotely. Follow-up in 6 months. Coding Level of Care Code Est Pt Level 4 (39574) Diagnoses Atherosclerotic cardiovascular disease I25.10 Status post aorto-coronary artery bypass graft Z95.1 Chronic heart failure with preserved ejection fraction (HFpEF) I50.32 Essential hypertension I10 ICD (implantable cardioverter-defibrillator) in place Z95.810 CPT Codes Cardiac Device Check - Cardiac Device 4: [id number] Cardiac Device Check, single lead implantable defibrillator ([id number])
== END 2024-03-16 14:44 | disposition home or self-care (01) ==
PROVIDERS: PCP Internal Medicine; Visit Provider Internal Medicine
DX: I25.10 Atherosclerotic heart disease of native coronary artery without angina pectoris (principal); Z95.1 Presence of aortocoronary bypass graft; I50.32 Chronic diastolic (congestive) heart failure; I10 Essential (primary) hypertension; Z95.810 Presence of automatic (implantable) cardiac defibrillator
CPT/HCPCS: 93282; 99214

== ENCOUNTER → 2024-03-16 13:22 | Outpatient (BNVA) | payer OTHER, SELFPAY | PROVIDERS: PCP Internal Medicine; Visit Provider Internal Medicine | DX: Z45.02 Encounter for adjustment and management of automatic implantable cardiac defibrillator (principal); I25.10 Atherosclerotic heart disease of native coronary artery without angina pectoris; I11.0 Hypertensive heart disease with heart failure; I50.32 Chronic diastolic (congestive) heart failure; Z95.1 Presence of aortocoronary bypass graft | CPT/HCPCS: 99212 ==

== ENCOUNTER 2024-03-18 12:49 | Outpatient (AMB) | payer OTHER, SELFPAY ==
--- NOTE | 2024-03-18 13:35 | A.OFFVIS_ITS ---
Intake Vital Signs 03/18/24 13:40 Height 5 ft 7 in Intake Visit Reasons: 60 min Document Image Technician Required: Yes Document Image Technician Language: Manager Ent Name: Roderick [id number] Accompanied by: Spouse Allergies Penicillins Allergy (Intermediate, Verified 03/06/24 20:41) ITCHING HPI Comprehensive Diabetes Asmnt Most Recent Diabetes Results: Hemoglobin A1c 8.2 % 08/14/19 Microalb/Creat Ratio 1062.2 ug/mg cr (<30) H 02/27/24 Cholesterol 148 mg/dL (<200) 02/27/24 HDL Cholesterol 37 mg/dL (>40) L 02/27/24 Triglycerides 217 mg/dL (<150) H 02/27/24 Creatinine 2.08 mg/dL (0.5-1.4) H 03/07/24 Blood Urea Nitrogen 31 mg/dL (9-16) H 03/07/24 Sodium 141 mmol/L (135-145) 03/07/24 Potassium 4.3 mmol/L (3.3-5.1) 03/07/24 Chloride 103 mmol/L (96-108) 03/07/24 Carbon Dioxide 28 mmol/L (22-29) 03/07/24 Calcium 9.4 mg/dL (8.4-10.2) 03/07/24 AST 19 U/L (5-37) 03/06/24 ALT 23 U/L (0-40) 03/06/24 Total Protein 6.9 g/dL (6.5-8.0) 03/06/24 Albumin 3.6 g/dL (3.5-5.0) 03/06/24 [facility] Medical History CHF (congestive heart failure) Type 2 diabetes mellitus Chronic heart failure with preserved ejection fraction (HFpEF) Cardiomyopathy Hypoglycemia due to type 2 diabetes mellitus Acute on chronic systolic (congestive) heart failure Defibrillator discharge Hospital discharge follow-up ROE (obstructive sleep apnea) Hypothyroidism Reactive airway disease [id number] syndrome Obesity due to excess calories ROE (obstructive sleep apnea) ROE on CPAP Ischemic cardiomyopathy Atherosclerotic cardiovascular disease GERD (gastroesophageal reflux disease) Hypothyroidism Type 2 diabetes mellitus with hyperglycemia, with long-term current use of insulin Type 2 diabetes mellitus with diabetic polyneuropathy Essential hypertension Chronic systolic (congestive) heart failure ICD (implantable cardioverter-defibrillator) in place HTN (hypertension) CAD (coronary artery disease) Hyperlipidemia LDL goal <70 Dyspnea Bibasilar crackles Sleep apnea Insomnia Delusion of persecution Surgical History H/O inguinal hernia repair History of tooth extraction Hx of CABG (~2019) History of open heart surgery History of bilateral cataract extraction Family History Father No problems noted. Mother CVD (cardiovascular disease) Social History Household Members: Spouse Housing: House Do you presently have visiting nurse or other home services: Yes (every 15 days) Alcohol intake: former Patient Tobacco Use Status: Former Tobacco user e-Cigarette/Vaping Use: Never Used Second Hand Smoke Exposure: No service: No Current occupational status: retired Cognitive needs: Yes Hearing needs: No Vision needs: Yes Assessment & Plan Assessment & Plan (1) Type 2 diabetes mellitus: Code(s): E11.9 - Type 2 diabetes mellitus without complications Plan: Learning objectives: The patient was provided with verbal and written education on the following topics as outlined below. Assess patient education level/literacy/barriers Patient questions/concerns, patient has 3 or 4 days left on prednisone taper, glucose levels still running above target. Did not recommend any changes to patient's insulin plan at today's visit. Patient has appointment with DIRT BIKE MECHANIC next week. Patient using freestyle Manjit 3 sensors, prescription sent by PCP was only for 1 sensor month. Message sent to DIRT BIKE MECHANIC to correct prescription to be sent for 2 sensors per month. Patient's glucose has improved since last visit. Average glucose today's sensor 256 mg/dL, from visit 2 weeks ago average glucose was 332 mg/dL Patient above target 76% At target 21% Below target 3% Patient is currently taking Tresiba U 200 84 units NovoLog U 100 before meals Mounjaro 5 mg weekly Reviewed with patient how to treat hypoglycemia, instructed patient if he has increase in hypoglycemia contact conservation educator or DIRT BIKE MECHANIC The patient met all learning objectives and was able to verbalize understanding and provide teach back of education topics discussed . The patient was provided with the opportunity to ask questions and all questions were answered. Topics covered in today?s session included: Medications (If applicable) * Name of medication? * Dosing/administration instructions? * Mechanism of action? * Potential side effects? * Potential adverse reaction and appropriate treatment? * Review onset, peak, duration Assess for concerns re: insurance coverage, cost, barriers to compliance Insulin/Injectables (If applicable) * Storage/care of insulin?? * Injection sites? * Site rotation? * Onset, peak, duration * Drawing up insulin? * Injecting insulin/other injectables? * Sharps disposal Continuous blood glucose monitoring (if applicable) Hypoglycemia and Hyperglycemia * Signs and symptoms? * Causes?? * Treatment? * Preventing hypoglycemia? * When to seek medical attention Target Goals: * Blood glucose targets * Monitoring and knowing your A1C. * What can make blood glucose go up and down and preventing high and low blood glucose. * Problem solving and preventing hyper/hypoglycemia. * Using blood sugar results in decision making process in managing diabetes. ?Patient was receptive to information provided and participated in the discussion. Asked?appropriate questions and demonstrated good understanding of the topics discussed.? ? Educational Materials: The patient was provided with the following written educational materials: Target Goal, handout Portions of this note were created using voice recognition software, please excuse any words or phrases that may have been misinterpreted. Patient Instructions: Patient will follow-up with conservation educator in 2 months Coding Level of Care Code Est Pt Level 1 (23312) Diagnoses Type 2 diabetes mellitus E11.9
== END 2024-03-18 14:01 | disposition home or self-care (01) ==
PROVIDERS: PCP Internal Medicine; Visit Provider Registered Nurse Diabetes Educator
DX: E11.9 Type 2 diabetes mellitus without complications (principal)

== ENCOUNTER → 2024-03-18 12:49 | Outpatient (BNVA) | payer OTHER, SELFPAY | PROVIDERS: PCP Internal Medicine; Visit Provider Registered Nurse Diabetes Educator | DX: E11.9 Type 2 diabetes mellitus without complications (principal); Z71.89 Other specified counseling | CPT/HCPCS: 99211 ==

== ENCOUNTER 2024-03-19 15:35 | Outpatient (AMB) | payer OTHER, SELFPAY ==
--- NOTE | 2024-03-19 15:51 | A.OFFPC_ITS ---
Vital Signs 03/19/24 15:52 Height 5 ft 7 in Weight 216 lb BMI 33.8 BP 112/60 Blood Pressure Location Lt brachial Position Sitting Intake Visit Reasons: Annual Exam Intake Note: Patient here for an annual physical exam Concrete Hopper Operator Required: No Accompanied by: Spouse Allergies Penicillins Allergy (Intermediate, Verified 03/19/24 16:06) ITCHING Medication List - Last Reconciled 03/19/24 by Sophie Fulton MD amlodipine 5 mg PO DAILY aspirin (Enteric Coated Aspirin) 81 mg PO DAILY blood sugar diagnostic (FreeStyle Lite Strips) As directed 4 times a day blood-glucose meter (FreeStyle Lite Meter kit) As directed blood-glucose meter,continuous (FreeStyle Manjit 3 [place]) As directed blood-glucose sensor (FreeStyle Manjit 3 Sensor device) As directed cholecalciferol (vitamin D3) 50 mcg PO DAILY 90 days CPAP (CPAP Machine/Device) As directed famotidine 20 mg PO BEDTIME 90 days xpkoevyqzro-eqrjekfwq-eurzgnwi 100-62.5-25 mcg (Trelegy Ellipta) 1 inh inhalation DAILY 28 days furosemide 40 mg PO DAILY 90 days gabapentin 100 mg PO BEDTIME PRN galantamine ER 8 mg PO QAM insulin aspart U-100 (Novolog FlexPen U-100 Insulin aspart) 35 units subcut DAILY@0730 insulin aspart U-100 (Novolog FlexPen U-100 Insulin aspart) 40 units subcut DAILY@1130 insulin aspart U-100 (Novolog FlexPen U-100 Insulin aspart) 45 units subcut DAILY@1630 insulin degludec (Tresiba FlexTouch U-200 insulin) 84 units subcut BEDTIME losartan 25 mg PO DAILY 90 days meclizine 12.5 mg PO DAILY metformin 1,000 mg PO BID 90 days metoprolol succinate ER 100 mg PO DAILY pen needle, diabetic 4 times a day As directed pramipexole 0.5 mg PO DAILY rosuvastatin 40 mg PO DAILY tirzepatide (Mounjaro) 5 mg subcut WE Ventolin HFA 90 mcg/actuation (albuterol sulfate) 2 puffs PO Q6H PRN NS Tobacco use date assessed: 11/18/23 Fall risk assessment: No Falls in past year Last assessed Fall Risk: 03/19/24 Dental Screening Dental Screen Date: 01/15/24 HPI HPI Comments History of Present Illness Details This is a 73-year-old male with diabetes mellitus type 2 on long-term current use of insulin, chronic kidney disease stage 3 and chronic systolic congestive heart failure with defibrillator that comes today accompanied by for his physical exam. Blood glucose as per patient has improved. Chronic kidney disease is follow by Nephrology and he is aware has to avoid NSAIDs. Has not gain 5 lb in a week regarding his heart failure that is follow by cardiology. Had colonoscopy over 10 years ago as per patient and would like to have another. complains that he is very low and has tremors and CT scan of the head and marie scan will be order to rule out Parkinson's disease. He said that in [place] day to him that he was behaving as early Parkinson's disease. [facility] Medical History (Updated 03/21/24 @ 08:13 by Sophie Fulton MD) CHF (congestive heart failure) Type 2 diabetes mellitus Chronic heart failure with preserved ejection fraction (HFpEF) Cardiomyopathy Hypoglycemia due to type 2 diabetes mellitus Acute on chronic systolic (congestive) heart failure Defibrillator discharge Hospital discharge follow-up ROE (obstructive sleep apnea) Hypothyroidism Reactive airway disease [id number] syndrome Obesity due to excess calories ROE (obstructive sleep apnea) ROE on CPAP Ischemic cardiomyopathy Atherosclerotic cardiovascular disease GERD (gastroesophageal reflux disease) Hypothyroidism Type 2 diabetes mellitus with hyperglycemia, with long-term current use of insulin Type 2 diabetes mellitus with diabetic polyneuropathy Essential hypertension Chronic systolic (congestive) heart failure ICD (implantable cardioverter-defibrillator) in place HTN (hypertension) CAD (coronary artery disease) Hyperlipidemia LDL goal <70 Dyspnea Bibasilar crackles Sleep apnea Insomnia Delusion of persecution Surgical History H/O inguinal hernia repair History of tooth extraction Hx of CABG (~2019) History of open heart surgery History of bilateral cataract extraction Family History Father No problems noted. Mother CVD (cardiovascular disease) Social History Household Members: Spouse Housing: House Do you presently have visiting nurse or other home services: Yes (every 15 days) Alcohol intake: former Patient Tobacco Use Status: Former Tobacco user e-Cigarette/Vaping Use: Never Used Second Hand Smoke Exposure: No service: No Current occupational status: retired Cognitive needs: Yes Hearing needs: No Vision needs: Yes Questionnaire Thrive Questionnaire Date Thrive assessed: 03/08/24 RENNY-7 AMB Questionnaire RENNY-7 Date RENNY - 7 assessed: 11/18/23 Source: Developed by Drs. Godwin Street, Luisa Carlin, Lawrence Escamilla and colleagues, with an educational sonia from [employer]. Review of Systems Const All systems reviewed & are unremarkable except as noted in HPI and below Card Denies chest pain at rest, Denies chest pain with activity, Denies edema, Denies irregular heart rhythm, Denies claudication, Denies dyspnea, Denies dyspnea on exertion, Denies orthopnea, Denies paroxysmal nocturnal dyspnea and Denies slow heart rate Resp Denies cough, Denies dyspnea and Denies dyspnea on exertion GI Denies abdominal pain, Denies change in bowel habits, Denies excessive flatus, Denies nausea and Denies vomiting Denies urinary hesitancy, Denies urinary incontinence and Denies urinary urgency Physical exam (Primary Care) Vital Signs: Last Vital Signs BP 112/60 03/19/24 15:52 BMI result Body Mass Index 33.8 BMI Assessment/Plan discussion: High BMI High, discussed plan: lifestyle, weight reduction, dietary and physical activity Tobacco/Smoking Status: Tobacco use Status Tobacco use date assessed 11/18/23 03/19/24 15:54 Patient Tobacco Use Status Former Tobacco user 03/19/24 15:54 e-Cigarette/Vaping Use Never Used 03/19/24 15:54 Thrive Assessment: Date of Thrive Assessment Date Thrive assessed 03/08/24 03/19/24 15:54 HENNM Head: Yes normal to inspection, Yes normocephalic and Yes atraumatic Ears: external ears normal Eyes General: appearance normal, both eyes and all related structures Eyelids: Yes eyelids normal Conjunctivae: conjunctivae normal Neck Neck: Yes normal visual inspection and Yes supple Resp Effort & Inspection: normal respiratory effort Auscultation: clear to auscultation bilaterally Cardio Jugular venous distension: no JVD Rate: regular rate Rhythm: regular rhythm Heart sounds: S1 normal heart sound present and S2 normal heart sound present GI Inspection: Yes normal to inspection Palpation (GI): Soft to palpation and nontender Auscultation: normal bowel sounds Skin General skin exam: no rashes or lesions noted Neuro General: no focal motor deficits Extrem General: Yes full ROM Psych Appearance: grossly normal Assessment and Plan Assessment & Plan (1) Physical exam: Code(s): Z00.00 - Encounter for general adult medical examination without abnormal findings Plan: Repeat in a year. (2) Tremors of nervous system: Code(s): R25.1 - Tremor, unspecified Plan: MARIE scan and CT head ordered. (3) CKD (chronic kidney disease) stage 3, GFR 30-59 ml/min: Code(s): N18.30 - Chronic kidney disease, stage 3 unspecified Qualifiers: Chronic kidney disease stage 3 subtype: stage 3b (GFR 30-44) Qualified Code(s): N18.32 - Chronic kidney disease, stage 3b Plan: Follow-up with nephrology. Avoid NSAIDs. (4) Type 2 diabetes mellitus with hyperglycemia, with long-term current use of insulin: Code(s): E11.65 - Type 2 diabetes mellitus with hyperglycemia; Z79.4 - continuous churn buttermaker (current) use of insulin Plan: Continue insulin. A1c goal is equal or less than 7%. (5) Chronic systolic (congestive) heart failure: Code(s): I50.22 - Chronic systolic (congestive) heart failure Plan: Continue diuretics. The goal is to not gain 5 lb in a week. Orders: Orders DaTscan 03/19/24 R25.1 - Tremor, unspecified CT head/brain wo IV con 03/19/24 R25.1 - Tremor, unspecified, R41.3 - Other amnesia Lipid Panel 03/19/24 E78.5 - Hyperlipidemia, unspecified Vitamin D 25-OH Total 03/19/24 E55.9 - Vitamin D deficiency, unspecified Comprehensive [place]. Panel Fast 03/19/24 R41.3 - Other amnesia Microalbumin, Random (w Creat) 03/19/24 E11.9 - Type 2 diabetes mellitus without complications Vitamin B12 and Folate 03/19/24 E53.8 - Deficiency of other specified B group vitamins Referrals Gastroenterology Referral Z12.11 - Encounter for screening for malignant neoplasm of colon Medications: Refilled pen needle, diabetic 4 times a day As directed 120 ea 3RF Coding Level of Care Code Est Pt Level 3 (60741) Est Pt Prev Care >65y(64702) Diagnoses Physical exam Z00.00 Tremors of nervous system R25.1 Stage 3b chronic kidney disease N18.32 Chronic kidney disease stage 3 subtype: stage 3b (GFR 30-44) Type 2 diabetes mellitus with hyperglycemia, with long-term current use of insulin E11.65; Z79.4 Chronic systolic (congestive) heart failure I50.22 Time Spent (min) 35
[2024-03-19 15:52] VITALS: BP 112/60; BMI 33.8
== END 2024-03-19 16:21 | disposition home or self-care (01) ==
PROVIDERS: PCP Internal Medicine; Visit Provider Internal Medicine
DX: Z00.00 Encounter for general adult medical examination without abnormal findings (principal); N18.32 Chronic kidney disease, stage 3b; E11.65 Type 2 diabetes mellitus with hyperglycemia; Z79.4 Long term (current) use of insulin; I50.22 Chronic systolic (congestive) heart failure; R25.1 Tremor, unspecified
CPT/HCPCS: 99213; 99397

== ENCOUNTER 2024-03-25 09:56 | Outpatient (REF) | payer OTHER, SELFPAY ==
[2024-03-25 12:34] LABS: Alanine Aminotransferase 38 U/L (0-40); Albumin Level 3.5 g/dL (3.5-5.0); Alkaline Phosphatase 59 U/L (39-117); Anion Gap 12 (12-20); Aspartate Amino Transferase 32 U/L (5-37); Bilirubin Total 0.4 mg/dL (0.0-1.0); Blood Urea Nitrogen 27 mg/dL (9-16); Calcium 9.3 mg/dL (8.4-10.2); Carbon Dioxide 32 mmol/L (22-29); Chloride 102 mmol/L (96-108); Cholesterol 133 mg/dL (<200); Estimated Glomerular Filt Rate 37; Glucose Fasting 223 mg/dL (60-99); HDL Cholesterol 44 mg/dL (>40); LDL Cholesterol Calculated 65 mg/dL (<100); Potassium 4.5 mmol/L (3.3-5.1); Sodium 141 mmol/L (135-145); Total Protein 6.5 g/dL (6.5-8.0); Triglycerides 120 mg/dL (<150)
[2024-03-25 12:49] LABS: Creatinine Urine 84.57 mg/dL
[2024-03-25 12:52] LABS: Vitamin D 25-OH Total 48.3 ng/mL (>30)
[2024-03-25 12:55] LABS: Folate 7.4 ng/mL (> or = 4.0); Vitamin B12 440 pg/mL (200-900)
[2024-03-25 13:03] LABS: Microalbum/Creatinine Ratio Ur 932.9 ug/mg cr (<30)
== END 2024-03-25 09:57 | disposition home or self-care (01) ==
LOC: HO.LAB 09:56
PROVIDERS: PCP Internal Medicine; Visit Provider Internal Medicine
DX: E11.9 Type 2 diabetes mellitus without complications (principal); E78.5 Hyperlipidemia, unspecified; R41.3 Other amnesia; E53.8 Deficiency of other specified B group vitamins; E55.9 Vitamin D deficiency, unspecified
CPT/HCPCS: 36415; 80053; 80061; 82043; 82306; 82570; 82607; 82746

== ENCOUNTER 2024-03-26 14:46 | Outpatient (AMB) | payer OTHER, SELFPAY ==
--- NOTE | 2024-03-26 14:48 | A.OFFVIS_ITS ---
Vital Signs 03/26/24 14:57 Height 5 ft 7 in Weight 213 lb 13.574 oz BMI 33.5 BP 116/82 Blood Pressure Location Rt brachial Position Sitting Pulse 85 Pulse Source Pulse Oximeter Intake Visit Reasons: T2DM Intake Note: Patient presents today for a follow-up on Type 2 Diabetes Mellitus: Last Diabetic Eye Exam: 6 MONTHS AGO Last Podiatry Exam- Does not see a Suction Drum Drier Operator Random Glucose- 123mg/dL, Today Most recent HbA1c- 11.9 %, 02/20/2024 Medical Director Of Hospice Required: Yes Medical Director Of Hospice Services: Medical Director Of Hospice Present Medical Director Of Hospice Name: OREN Whittaker/ALEX ORNELAS Information Interpreted: non-clinical & clinical Accompanied by: Self / Same As Patient Allergies Penicillins Allergy (Intermediate, Verified 03/26/24 15:04) ITCHING HPI Comments Details: 73 year old male who is seen in f/u for T2DM. Has been having issues with hypoglycemia and has been seeing his provider frequently. A1C ~11.0% Initially diagnosed with T2DM approx 30 years ago. On insulin last six years. Current regimen: Tresiba 84units (decreased from 90) Novolog breakfast 45 units (increased from 35) lunch 40 units supper 40 units (decreased from 45) metformin 1000mg bid Since above changes two weeks ago patient denies further episodes of hypoglycemia. Only one week of these two with CGM download. On one low following above changes ROS see HPI PHYSICAL EXAM: GENERAL: Alert and oriented x 3. NAD EYES: EOMI. Anicteric. HENT: Moist mucous membranes. No scleral icterus. No cervical lymphadenopathy. LUNGS: Clear to auscultation bilaterally. CARDIOVASCULAR: Regular rate and rhythm. No murmur. No JVD. ABDOMEN: Soft, non-tender +bs EXTREMITIES: No edema. Non-tender. SKIN: No rashes or lesions. Warm. NEUROLOGIC: No focal neurological deficits. CN II-XII grossly intact PSYCHIATRIC: Cooperative. Appropriate mood and affect [facility] Medical History CHF (congestive heart failure) Type 2 diabetes mellitus Chronic heart failure with preserved ejection fraction (HFpEF) Cardiomyopathy Hypoglycemia due to type 2 diabetes mellitus Acute on chronic systolic (congestive) heart failure Defibrillator discharge Hospital discharge follow-up ROE (obstructive sleep apnea) Hypothyroidism Reactive airway disease [id number] syndrome Obesity due to excess calories ROE (obstructive sleep apnea) ROE on CPAP Ischemic cardiomyopathy Atherosclerotic cardiovascular disease GERD (gastroesophageal reflux disease) Hypothyroidism Type 2 diabetes mellitus with hyperglycemia, with long-term current use of insulin Type 2 diabetes mellitus with diabetic polyneuropathy Essential hypertension Chronic systolic (congestive) heart failure ICD (implantable cardioverter-defibrillator) in place HTN (hypertension) CAD (coronary artery disease) Hyperlipidemia LDL goal <70 Dyspnea Bibasilar crackles Sleep apnea Insomnia Delusion of persecution Surgical History H/O inguinal hernia repair History of tooth extraction Hx of CABG (~2019) History of open heart surgery History of bilateral cataract extraction Family History Father No problems noted. Mother CVD (cardiovascular disease) Social History Household Members: Spouse Housing: House Do you presently have visiting nurse or other home services: Yes (every 15 da ys) Alcohol intake: former Patient Tobacco Use Status: Former Tobacco user e-Cigarette/Vaping Use: Never Used Second Hand Smoke Exposure: No service: No Current occupational status: retired Cognitive needs: Yes Hearing needs: No Vision needs: Yes Physical Exam Vital Signs: Last Vital Signs Pulse 85 03/26/24 14:57 BP 116/82 03/26/24 14:57 BMI result Body Mass Index 33.5 Results Reviewed Results Reviewed: Laboratory Last Values Glucose (Clinic) 123 mg/dL (60-115) H 03/26/24 15:01 Assessment & Plan Assessment & Plan (1) Type 2 diabetes mellitus: Code(s): E11.9 - Type 2 diabetes mellitus without complications Category: Medical Qualifiers: Diabetes mellitus complication status: with hyperglycemia Diabetes mellitus civil rights representative insulin use: with civil rights representative use Qualified Code(s): E11.65 - Type 2 diabetes mellitus with hyperglycemia; Z79.4 - home visitor home base head start (current) use of insulin Plan: Hypoglycemia has resolved. Coding Level of Care Code Est Pt Level 4 (42966) Diagnoses Type 2 diabetes mellitus with hyperglycemia, with long-term current use of insulin E11.65; Z79.4 Diabetes mellitus complication status: with hyperglycemia Diabetes mellitus civil rights representative insulin use: with civil rights representative use
[2024-03-26 14:57] VITALS: BP 116/82; PULSE 85; BMI 33.5
[2024-03-26 15:05] LABS: Glucose, Whole Blood 123 mg/dL (60-115)
== END 2024-03-26 15:31 | disposition home or self-care (01) ==
PROVIDERS: PCP Internal Medicine; Visit Provider Internal Medicine
DX: E11.65 Type 2 diabetes mellitus with hyperglycemia (principal); Z79.4 Long term (current) use of insulin
CPT/HCPCS: 99214

== ENCOUNTER → 2024-03-26 14:46 | Outpatient (BNVA) | payer OTHER, SELFPAY | PROVIDERS: PCP Internal Medicine; Visit Provider Internal Medicine | DX: E11.65 Type 2 diabetes mellitus with hyperglycemia (principal); Z79.4 Long term (current) use of insulin | CPT/HCPCS: 82947; 99212 ==

== ENCOUNTER → 2024-03-26 23:59 | Outpatient (BNV) | payer OTHER, SELFPAY ==
--- NOTE | 2024-03-31 12:37 | A.OFFVIS_ITS ---
Intake Visit Reasons: remote HF monitoring- [employer] Allergies Penicillins Allergy (Intermediate, Verified 03/26/24 15:04) ITCHING PFSH Medical History CHF (congestive heart failure) Type 2 diabetes mellitus Chronic heart failure with preserved ejection fraction (HFpEF) Cardiomyopathy Hypoglycemia due to type 2 diabetes mellitus Acute on chronic systolic (congestive) heart failure Defibrillator discharge Hospital discharge follow-up ROE (obstructive sleep apnea) Hypothyroidism Reactive airway disease [id number] syndrome Obesity due to excess calories ROE (obstructive sleep apnea) ROE on CPAP Ischemic cardiomyopathy Atherosclerotic cardiovascular disease GERD (gastroesophageal reflux disease) Hypothyroidism Type 2 diabetes mellitus with hyperglycemia, with long-term current use of insulin Type 2 diabetes mellitus with diabetic polyneuropathy Essential hypertension Chronic systolic (congestive) heart failure ICD (implantable cardioverter-defibrillator) in place HTN (hypertension) CAD (coronary artery disease) Hyperlipidemia LDL goal <70 Dyspnea Bibasilar crackles Sleep apnea Insomnia Delusion of persecution Surgical History H/O inguinal hernia repair History of tooth extraction Hx of CABG (~2019) History of open heart surgery History of bilateral cataract extraction Family History Father No problems noted. Mother CVD (cardiovascular disease) Social History Household Members: Spouse Housing: House Do you presently have visiting nurse or other home services: Yes (every 15 days) Alcohol intake: former Patient Tobacco Use Status: Former Tobacco user e-Cigarette/Vaping Use: Never Used Second Hand Smoke Exposure: No service: No Current occupational status: retired Cognitive needs: Yes Hearing needs: No Vision needs: Yes Office Procedures Cardiac Device Check Cardiac Device Check Details: Date of service- 03/26/2024; based on impedance data and physiological va riables, there is possible OptiVol fluid accumulation from 20 of March - . [id number] Cardiac Device Interrogation, cardio physiologic monitor Procedure code (CPT) selection complete Assessment & Plan Assessment & Plan (1) Ischemic cardiomyopathy: Code(s): I25.5 - Ischemic cardiomyopathy Category: Medical Plan x Coding Level of Care Code Procedure Only Diagnoses Ischemic cardiomyopathy I25.5 CPT Codes Cardiac Device Check - Cardiac Device 15: [id number] Cardiac Device Interrogat ion, cardio physiologic monitor ([id number])
== END ==
PROVIDERS: PCP Internal Medicine; Visit Provider Internal Medicine
DX: I25.5 Ischemic cardiomyopathy (principal); Z95.810 Presence of automatic (implantable) cardiac defibrillator
CPT/HCPCS: 93297

== ENCOUNTER 2024-04-09 13:09 | Outpatient (AMB) | payer OTHER, SELFPAY ==
--- NOTE | 2024-04-09 13:20 | A.OFFVIS_ITS ---
Vital Signs 04/09/24 13:23 Height 5 ft 7 in Weight 213 lb 13.574 oz BMI 33.5 BP 142/88 H Blood Pressure Location Rt brachial Position Sitting Pulse 100 Pulse Source Pulse Oximeter Intake Visit Reasons: T2DM Intake Note: Patient presents today for a follow-up on Type 2 Diabetes Mellitus: Last Diabetic Eye Exam: 6 MONTHS AGO Last Podiatry Exam- Does not see a Supervisor In Circuit Testing Random Glucose- 115 mg/dL, Today Most recent HbA1c- 11.9 %, 02/20/2024 Sheet Combining Operator Required: Yes Sheet Combining Operator Language: Licensed Pesticide Applicator Services: Sheet Combining Operator Present (via video call) Sheet Combining Operator Name: Juan F #[id number] Information Interpreted: non-clinical & clinical Accompanied by: Significant Other Allergies Penicillins Allergy (Intermediate, Verified 04/13/24 10:49) ITCHING HPI Comments Details: 73 year old male who is seen in f/u for T2DM. Accompanied by his . Initially diagnosed with T2DM approx 30 years ago. On insulin last six years. Current regimen: Tresiba 84units Novolog breakfast 35 units lunch 40 units supper 45 units metformin 1000mg bid A1C 11.9% Manjit downloaded today GMI 9.2% average 245, high 71%, target 26%, low 3%, very low 0% All lows with the exception of one were between 10pm and 4am Patient notes that when his blood glucose is low 100s in the evening he does not take his LONG acting insulin. Missing frequent doses of long acting insulin There seems to be some disease and treatment knowledge deficit ROS Reports redness and swelling of the left ankle. No skin opening or drainage PHYSICAL EXAM: GENERAL: Alert and oriented x 3. NAD EYES: EOMI. Anicteric. HENT: Moist mucous membranes. No scleral icterus. No cervical lymphadenopathy. LUNGS: Clear to auscultation bilaterally. CARDIOVASCULAR: Regular rate and rhythm. No murmur. No JVD. ABDOMEN: Soft, non-tender +bs EXTREMITIES: No edema. Non-tender. SKIN: Warmth, redness and swelling of left lower extremity. No purulence NEUROLOGIC: No focal neurological deficits. CN II-XII grossly intact PSYCHIATRIC: Cooperative. [facility] Medical History CHF (congestive heart failure) Type 2 diabetes mellitus Chronic heart failure with preserved ejection fraction (HFpEF) Cardiomyopathy Hypoglycemia due to type 2 diabetes mellitus Acute on chronic systolic (congestive) heart failure Defibrillator discharge Hospital discharge follow-up ROE (obstructive sleep apnea) Hypothyroidism Reactive airway disease [id number] syndrome Obesity due to excess calories ROE (obstructive sleep apnea) ROE on CPAP Ischemic cardiomyopathy Atherosclerotic cardiovascular disease GERD (gastroesophageal reflux disease) Hypothyroidism Type 2 diabetes mellitus with hyperglycemia, with long-term current use of insulin Type 2 diabetes mellitus with diabetic polyneuropathy Essential hypertension Chronic systolic (congestive) heart failure ICD (implantable cardioverter-defibrillator) in place HTN (hypertension) CAD (coronary artery disease) Hyperlipidemia LDL goal <70 Dyspnea Bibasilar crackles Sleep apnea Insomnia Delusion of persecution Surgical History H/O inguinal hernia repair History of tooth extraction Hx of CABG (~2019) History of open heart surgery History of bilateral cataract extraction Family History Father No problems noted. Mother CVD (cardiovascular disease) Social History Household Members: Spouse Housing: House Do you presently have visiting nurse or other home services: Yes (every 15 days) Alcohol intake: former Patient Tobacco Use Status: Former Tobacco user e-Cigarette/Vaping Use: Never Used Second Hand Smoke Exposure: No service: No Current occupational status: retired Cognitive needs: Yes Hearing needs: No Vision needs: Yes Physical Exam Vital Signs: Last Vital Signs Pulse 100 04/09/24 13:23 BP 142/88 H 04/09/24 13:23 BMI result Body Mass Index 33.5 Results Reviewed Results Reviewed: Laboratory Last Values Glucose (Clinic) 115 mg/dL (60-115) 04/09/24 13:33 Assessment & Plan Assessment & Plan (1) Type 2 diabetes mellitus: Code(s): E11.9 - Type 2 diabetes mellitus without complications Category: Medical Qualifiers: Diabetes mellitus fpc insulin use: with extermination supervisor use Diabetes mellitus complication status: with hyperglycemia Qualified Code(s): E11.65 - Type 2 diabetes mellitus with hyperglycemia; Z79.4 - retirement (current) use of insulin Plan: Overall uncontrolled with continued episodes of hypoglycemia in setting of medication misuse Discussed the difference between long and short acting insulin. we need to reset regimen. Discussed he is to take 84 units of long acting once daily regardless of blood glucose. Advised him to hold mealtime insulin for the time being and we will add back on based upon glucose fluctuations seen with just the long acting insulin. Short term follow up continue mounjaro, metformin (2) Cellulitis: Code(s): L03.90 - Cellulitis, unspecified Category: Medical Qualifiers: Site of cellulitis: extremity Site of cellulitis of extremity: lower extremity Laterality: left Qualified Code(s): L03.116 - Cellulitis of left lower limb Plan: Start abx. message sent to pcp for close follow up Medications: New cephalexin 250 mg PO QID 28 caps 0RF Patient Instructions: Take only your 84 units of long acting once daily insulin nightly. You can hold mealtime insulin continue mounjaro, metformin Start antibiotics for the infection in the leg and make sure your primary care doctor calls you for follow up. I sent them a message. Coding Level of Care Code Est Pt Level 5 (31606) Diagnoses Type 2 diabetes mellitus with hyperglycemia, with long-term current use of insulin E11.65; Z79.4 Diabetes mellitus extermination supervisor insulin use: with extermination supervisor use Diabetes mellitus complication status: with hyperglycemia Cellulitis of left lower extremity L03.116 Site of cellulitis: extremity Site of cellulitis of extremity: lower extremity Laterality: left Time Spent (min) 55
[2024-04-09 13:23] VITALS: BP 142/88; PULSE 100; BMI 33.5
[2024-04-09 13:37] LABS: Glucose, Whole Blood 115 mg/dL (60-115)
== END 2024-04-09 14:00 | disposition home or self-care (01) ==
PROVIDERS: PCP Internal Medicine; Visit Provider Internal Medicine
DX: E11.65 Type 2 diabetes mellitus with hyperglycemia (principal); Z79.4 Long term (current) use of insulin; L03.116 Cellulitis of left lower limb
CPT/HCPCS: 99215

== ENCOUNTER → 2024-04-09 13:09 | Outpatient (BNVA) | payer OTHER, SELFPAY | PROVIDERS: PCP Internal Medicine; Visit Provider Internal Medicine | DX: E11.65 Type 2 diabetes mellitus with hyperglycemia (principal); L03.116 Cellulitis of left lower limb; Z79.4 Long term (current) use of insulin | CPT/HCPCS: 82947; 99212 ==

== ENCOUNTER 2024-04-13 10:42 | Outpatient (AMB) | payer OTHER, SELFPAY ==
[2024-04-13 10:45] VITALS: BP 112/68; PULSE 72; O2SAT 91; BMI 32.9
--- NOTE | 2024-04-13 10:45 | MHC.PC.OV ---
Vital Signs 04/13/24 10:45 Height 5 ft 7 in Weight 210 lb BMI 32.9 BP 112/68 Blood Pressure Location Lt brachial Position Sitting Pulse 72 Pulse Source Pulse Oximeter Pulse Oximetry (%) 91 L Oxygen Delivery Method Room Air Intake Visit Reasons: non purulent cellulitis Implementation Director Required: Yes Allergies Penicillins Allergy (Intermediate, Verified 04/13/24 10:49) ITCHING Medication List - Last Reconciled 04/13/24 by Isabel Shepherd PA-C amlodipine 5 mg PO DAILY aspirin (Enteric Coated Aspirin) 81 mg PO DAILY blood sugar diagnostic (FreeStyle Lite Strips) As directed 4 times a day blood-glucose meter (FreeStyle Lite Meter kit) As directed blood-glucose meter,continuous (FreeStyle Manjit 3 [place]) As directed blood-glucose sensor (FreeStyle Manjit 3 Sensor device) As directed cephalexin 250 mg PO QID cholecalciferol (vitamin D3) 50 mcg PO DAILY 90 days CPAP (CPAP Machine/Device) As directed famotidine 20 mg PO BEDTIME 90 days iecvcfgglys-ofakwfhao-apvwglzu 100-62.5-25 mcg (Trelegy Ellipta) 1 inh inhalation DAILY 28 days furosemide 40 mg PO DAILY 90 days gabapentin 100 mg PO BEDTIME PRN galantamine ER 8 mg PO QAM insulin aspart U-100 (Novolog FlexPen U-100 Insulin aspart) 35 units subcut DAILY@0730 insulin aspart U-100 (Novolog FlexPen U-100 Insulin aspart) 40 units subcut DAILY@1130 insulin aspart U-100 (Novolog FlexPen U-100 Insulin aspart) 45 units subcut DAILY@1630 insulin degludec (Tresiba FlexTouch U-200 insulin) 84 units subcut BEDTIME losartan 25 mg PO DAILY 90 days meclizine 12.5 mg PO Q12H PRN 15 days metformin 1,000 mg PO BID 90 days metoprolol succinate ER 100 mg PO DAILY pen needle, diabetic 4 times a day As directed pramipexole 0.5 mg PO DAILY rosuvastatin 40 mg PO DAILY tirzepatide (Mounjaro) 5 mg subcut WE Ventolin HFA 90 mcg/actuation (albuterol sulfate) 2 puffs PO Q6H PRN NS Tobacco use date assessed: 11/18/23 Fall risk assessment: No Falls in past year Last assessed Fall Risk: 04/13/24 Dental Screening Dental Screen Date: 01/15/24 HPI non purulent cellulitis HPI Details 73-year-old male with diabetes mellitus type 2 on long-term current use of insulin, chronic kidney disease stage 3 and chronic systolic congestive heart failure with defibrillator that comes today for acute problem. In review of the notes, patient was seen by [facility] endocrinology and found to have cellulitis treated with Keflex and here for follow up. shipping order clerk was used for the duration of this visit. Patient presents day accompanied by his . States he still has 1 day left of the antibiotic but this continuing to have pain and swelling in the left lower extremity. The redness has improved very mildly other symptoms have remained the same. [facility] Medical History CHF (congestive heart failure) Type 2 diabetes mellitus Chronic heart failure with preserved ejection fraction (HFpEF) Cardiomyopathy Hypoglycemia due to type 2 diabetes mellitus Acute on chronic systolic (congestive) heart failure Defibrillator discharge Hospital discharge follow-up ROE (obstructive sleep apnea) Hypothyroidism Reactive airway disease [id number] syndrome Obesity due to excess calories ROE (obstructive sleep apnea) ROE on CPAP Ischemic cardiomyopathy Atherosclerotic cardiovascular disease GERD (gastroesophageal reflux disease) Hypothyroidism Type 2 diabetes mellitus with hyperglycemia, with long-term current use of insulin Type 2 diabetes mellitus with diabetic polyneuropathy Essential hypertension Chronic systolic (congestive) heart failure ICD (implantable cardioverter-defibrillator) in place HTN (hypertension) CAD (coronary artery disease) Hyperlipidemia LDL goal <70 Dyspnea Bibasilar crackles Sleep apnea Insomnia Delusion of persecution Surgical History H/O inguinal hernia repair History of tooth extraction Hx of CABG (~2019) History of open heart surgery History of bilateral cataract extraction Family History Father No problems noted. Mother CVD (cardiovascular disease) Social History Household Members: Spouse Housing: House Do you presently have visiting nurse or other home services: Yes (every 15 days) Alcohol intake: former Patient Tobacco Use Status: Former Tobacco user e-Cigarette/Vaping Use: Never Used Second Hand Smoke Exposure: No service: No Current occupational status: retired Cognitive needs: Yes Hearing needs: No Vision needs: Yes Questionnaire Thrive Questionnaire Date Thrive assessed: 03/08/24 AUDIT C Alcohol Use Questionnaire (AUDIT-C) 1. How often do you have a drink containing alcohol?: Never 3. How often do you have six or more drinks on one occasion?: Never Total Score: 0 RENNY-7 AMB Questionnaire RENNY-7 Date RENNY - 7 assessed: 11/18/23 Source: Developed by Drs. Godwin Street, Luisa Carlin, Lawrence Escamilla and colleagues, with an educational sonia from [employer]. Review of Systems Const Denies body aches, Denies chills and Denies fever(s) Eyes Reports no additional complaints ENT Reports no additional complaints Card Denies chest pain, Denies leg ulcers, Reports leg edema (left leg ), Denies lightheadedness and Denies dyspnea Resp Denies dyspnea GI Reports no additional complaints Reports no additional complaints Musc Reports no additional complaints Skin/Breast Reports as per HPI Neuro Reports no additional complaints Physical exam (Primary Care) Vital Signs: Last Vital Signs Pulse 72 04/13/24 10:45 BP 112/68 04/13/24 10:45 Pulse Ox 91 L 04/13/24 10:45 Oxygen Delivery Method Room Air 04/13/24 10:45 BMI result Body Mass Index 32.9 Tobacco/Smoking Status: Tobacco use Status Tobacco use date assessed 11/18/23 04/13/24 10:46 Patient Tobacco Use Status Former Tobacco user 04/13/24 10:46 e-Cigarette/Vaping Use Never Used 04/13/24 10:46 Thrive Assessment: Date of Thrive Assessment Date Thrive assessed 03/08/24 04/13/24 10:46 Const General: cooperative, healthy appearing, comfortable and no acute distress Orientation/consciousness: patient oriented x3 HENMT Head: Yes normocephalic Ears: hearing grossly normal bilaterally General nose exam: Normal external nose present Eyes General: appearance normal, both eyes and all related structures Conjunctivae: conjunctivae normal Neck Neck: Yes full ROM and Yes no lymphadenopathy Resp Effort & Inspection: normal respiratory effort Auscultation: clear to auscultation bilaterally, no crackles, no rales, no rhonchi and no wheezes Cardio Rate: regular rate Rhythm: regular rhythm Skin General skin exam: no rashes or lesions noted Neuro General: patient oriented x3 Gait exam (Neuro): Normal gait present Extrem Other: Pulses, strength, sensation intact in bilateral lower extremities. Lower left extremity with redness, warmth and non-pitting edema in the ankle and foot. General: Yes normal to inspection, Yes full ROM and No edema Psych Affect: normal affect Attitude: cooperative Insight: Good insight present (Psych) Judgement: Good judgement present (Psych) Assessment and Plan Assessment & Plan (1) Cellulitis: Code(s): L03.90 - Cellulitis, unspecified Plan: Patient continues to have pain, redness, warmth, and erythema of left lower extremity despite antibiotic treatment. We will switch the antibiotic to Clindamycin QID for 7 days for further treatment of the cellulitis in the setting of diabetes mellitus. Follow up in 1 week to monitor for resolution of symptoms. Plan This note was constructed using voice recognition software. While every effort has been made to ensure accuracy and director summer sessions, still areas may have been included sometimes these areas may affect the content or meeting of the given symptoms. Total time spent caring for the patient today was 30 minutes. This includes time spent before the visit reviewing the chart, time spent during the visit, and time spent after the visit and documentation. Medications: New clindamycin HCl 300 mg PO QID 28 caps 0RF 7 days Discontinued cephalexin Discontinued Reason: Patient no longer taking 250 mg PO QID 28 caps 0RF Coding Level of Care Code Est Pt Level 4 (42010) Diagnoses Cellulitis L03.90
== END 2024-04-13 11:14 | disposition home or self-care (01) ==
PROVIDERS: PCP Internal Medicine
DX: L03.90 Cellulitis, unspecified (principal)
CPT/HCPCS: 99214

== ENCOUNTER 2024-04-16 13:00 | Outpatient (RCR) | payer OTHER, SELFPAY ==
[2024-03-25 12:56] VITALS: BP 125/59; PULSE 85; O2SAT 93
--- NOTE | 2024-04-16 16:04 | MHC.PT.DC ---
[facility] [place] Office [place] Office [place] Office [address] Nilesh Romero [address] [facility] [phone] F: [phone] F: [phone] F: [phone] F: [phone] Physical Therapy Discharge Report Diagnosis: Cervical radiculopathy Date of Surgery: Date of Evaluation: 03/25/24 Date of Discharge: 04/16/24 Treatments to Date: 6 Cancellations to Date: No Shows to Date: Discharge Status: Achieved Goals Improved Function Independent with HEP Discharge Summary: Ed has been an active participant in his therapy with good home program compliance. We are in agreement with DC today as he has met all of his therapeutic goals, is managed of his initial symptoms, and is independent with his home program for self management. Electronically signed by: Chandler Parker PT. Please sign and return to therapist. Thank you for your referral.
== END 2024-04-16 16:04 | disposition home or self-care (01) ==
LOC: HO.PT 13:00
PROVIDERS: PCP Internal Medicine; Visit Provider Internal Medicine
DX: M54.12 Radiculopathy, cervical region (principal)
CPT/HCPCS: 97110; 97140; 97161

== ENCOUNTER 2024-04-20 10:31 | Outpatient (AMB) | payer OTHER, SELFPAY ==
--- NOTE | 2024-04-20 10:33 | HO.NEPHOV ---
Vital Signs 04/20/24 10:35 Height 5 ft 7 in Weight 215 lb BMI 33.7 BP 100/58 L Blood Pressure Location Lt brachial Position Sitting Pulse 84 Pulse Source Pulse Oximeter Pulse Oximetry (%) 91 L Oxygen Delivery Method Room Air Intake Visit Reasons: CKD/ Conf Accountant Machine Processing Required: Yes Accountant Machine Processing Name: Elias [id number] Accompanied by: Self / Same As Patient Allergies Penicillins Allergy (Intermediate, Verified 04/20/24 14:06) ITCHING Medication List - Last Reconciled 04/20/24 by Marco Barnes MD amlodipine 5 mg PO DAILY aspirin (Enteric Coated Aspirin) 81 mg PO DAILY blood sugar diagnostic (FreeStyle Lite Strips) As directed 4 times a day blood-glucose meter (FreeStyle Lite Meter kit) As directed blood-glucose meter,continuous (FreeStyle Manjit 3 Elkins) As directed blood-glucose sensor (FreeStyle Manjit 3 Sensor device) As directed cholecalciferol (vitamin D3) 50 mcg PO DAILY 90 days clindamycin HCl 300 mg PO QID 7 days CPAP (CPAP Machine/Device) As directed famotidine 20 mg PO BEDTIME 90 days azwirzmhnso-ojrutjwuz-tlywsnmq 100-62.5-25 mcg (Trelegy Ellipta) 1 inh inhalation DAILY 28 days furosemide 40 mg PO DAILY 90 days gabapentin 100 mg PO BEDTIME PRN galantamine ER 8 mg PO QAM insulin aspart U-100 (Novolog FlexPen U-100 Insulin aspart) 35 units subcut DAILY@0730 insulin aspart U-100 (Novolog FlexPen U-100 Insulin aspart) 40 units subcut DAILY@1130 insulin aspart U-100 (Novolog FlexPen U-100 Insulin aspart) 45 units subcut DAILY@1630 insulin degludec (Tresiba FlexTouch U-200 insulin) 84 units subcut BEDTIME losartan 25 mg PO DAILY 90 days meclizine 12.5 mg PO Q12H PRN 15 days metformin 1,000 mg PO BID 90 days metoprolol succinate ER 100 mg PO DAILY pen needle, diabetic 4 times a day As directed pramipexole 0.5 mg PO DAILY rosuvastatin 40 mg PO DAILY tirzepatide (Mounjaro) 5 mg subcut WE Ventolin HFA 90 mcg/actuation (albuterol sulfate) 2 puffs PO Q6H PRN NS HPI Comments Details: 68-year-old man with a history of longstanding diabetes mellitus hypertension for evaluation of chronic kidney disease. He has non nephrotic range proteinuria. Has been recent increase in serum creatinine. He has had episodes of low blood pressure. He is having some lightheadedness when he is trying to stand up. Accountant Machine Processing service was used. [facility] Medical History CHF (congestive heart failure) Type 2 diabetes mellitus Chronic heart failure with preserved ejection fraction (HFpEF) Cardiomyopathy Hypoglycemia due to type 2 diabetes mellitus Acute on chronic systolic (congestive) heart failure Defibrillator discharge Hospital discharge follow-up ROE (obstructive sleep apnea) Hypothyroidism Reactive airway disease [id number] syndrome Obesity due to excess calories ROE (obstructive sleep apnea) ROE on CPAP Ischemic cardiomyopathy Atherosclerotic cardiovascular disease GERD (gastroesophageal reflux disease) Hypothyroidism Type 2 diabetes mellitus with hyperglycemia, with long-term current use of insulin Type 2 diabetes mellitus with diabetic polyneuropathy Essential hypertension Chronic systolic (congestive) heart failure ICD (implantable cardioverter-defibrillator) in place HTN (hypertension) CAD (coronary artery disease) Hyperlipidemia LDL goal <70 Dyspnea Bibasilar crackles Sleep apnea Insomnia Delusion of persecution Surgical History H/O inguinal hernia repair History of tooth extraction Hx of CABG (~2019) History of open heart surgery History of bilateral cataract extraction Family History Father No problems noted. Mother CVD (cardiovascular disease) Social History Household Members: Spouse Housing: House Do you presently have visiting nurse or other home services: Yes (every 15 days) Alcohol intake: former Patient Tobacco Use Status: Former Tobacco user e-Cigarette/Vaping Use: Never Used Second Hand Smoke Exposure: No service: No Current occupational status: retired Cognitive needs: Yes Hearing needs: No Vision needs: Yes Review of Systems Const Reports as per HPI, Denies anorexia, Denies fatigue, Denies fever(s) and Denies headache(s) Eyes Denies blurry vision ENT Denies headache(s) Card Denies chest pain, Denies pedal edema and Denies dyspnea Resp Denies cough, Denies hemoptysis and Denies dyspnea GI Denies diarrhea, Denies nausea and Denies vomiting Denies hematuria, Denies urinary frequency and Denies urinary hesitancy Neuro Denies confusion, Denies headache(s) and Denies focal weakness Psych Denies confusion Endo Denies cold intolerance, Denies fatigue and Denies polyuria Physical Exam Vital Signs: Last Vital Signs Pulse 84 04/20/24 10:35 BP 100/58 L 04/20/24 10:35 Pulse Ox 91 L 04/20/24 10:35 Oxygen Delivery Method Room Air 04/20/24 10:35 BMI result Body Mass Index 33.7 Const General: comfortable; No acute distress or confusion Orientation/consciousness: patient oriented x3 and No confusion Eyes General: appearance normal, both eyes and all related structures Visual Car: normal visual car by confrontation Neck Neck: Yes supple and Yes no JVD Resp Effort & Inspection: normal respiratory effort and respiratory effort not decreased Auscultation: rhonchi Cardio Palpation: no palpable S3 and no palpable S4 Heart sounds: no rubs GI Inspection: Yes normal to inspection Palpation (GI): Soft to palpation Percussion: Yes normal to percussion Auscultation: normal bowel sounds General: Yes no CVA tenderness Back/Spine/Pelvis Back: no CVA tenderness Skin General skin exam: no petechiae and no purpura Neuro General: patient oriented x3, no focal motor deficits and No confusion Extrem General: No clubbing and Yes edema Results Reviewed Nephrology Results: Sodium 141 mmol/L (135-145) 03/25/24 Potassium 4.5 mmol/L (3.3-5.1) 03/25/24 Chloride 102 mmol/L (96-108) 03/25/24 Carbon Dioxide 32 mmol/L (22-29) H 03/25/24 BUN 27 mg/dL (9-16) H 03/25/24 Creatinine 1.81 mg/dL (0.5-1.4) H 03/25/24 Calcium 9.3 mg/dL (8.4-10.2) 03/25/24 Urine Creatinine 84.57 mg/dL 03/25/24 Assessment & Plan Assessment & Plan (1) Essential hypertension: Code(s): I10 - Essential (primary) hypertension Category: Medical (2) CKD (chronic kidney disease) stage 3, GFR 30-59 ml/min: Code(s): N18.30 - Chronic kidney disease, stage 3 unspecified Category: Medical Qualifiers: Chronic kidney disease stage 3 subtype: stage 3b (GFR 30-44) Qualified Code(s): N18.32 - Chronic kidney disease, stage 3b Plan 68-year-old man with a history of stage III CKD in a setting of longstanding hypertension diabetes mellitus. He has hypertensive diabetic kidney disease. Obstructive uropathy should be ruled out. No evidence of active glomerular nephritis at this point. He could have a component of ALPESH from hypoperfusion secondary to relatively low blood pressure. Blood pressure is relatively low based on the previous readings. For now I will stop amlodipine and watch his blood pressure. Recommendations workup as outlined below including renal ultrasonogram and urine studies. Optimize blood pressure and avoid hypotension. We will hold amlodipine for time being. He will benefit from SGLT-2 Given the degree of renal failure and current EGFR I would hold off on using metformin due to risk of lactic acidosis. After basic workup is completed returned to the office in the next few weeks Orders: Orders Basic Metabolic Panel 2 Weeks I10 - Essential (primary) hypertension, N18.32 - Chronic kidney disease, stage 3b Medications: Discontinued amlodipine Discontinued Reason: Doctor's Order 5 mg PO DAILY 90 tabs 0RF Coding Level of Care Code New Pt Level 5 (49609) Diagnoses Essential hypertension I10 Stage 3b chronic kidney disease N18.32 Chronic kidney disease stage 3 subtype: stage 3b (GFR 30-44)
[2024-04-20 10:35] VITALS: BP 100/58; PULSE 84; O2SAT 91; BMI 33.7
== END 2024-04-20 11:06 | disposition home or self-care (01) ==
PROVIDERS: PCP Internal Medicine; Referring Provider Nurse Practitioner Adult Health; Visit Provider Internal Medicine Hypertension Specialist
DX: I12.9 Hypertensive chronic kidney disease with stage 1 through stage 4 chronic kidney disease, or unspecified chronic kidney disease (principal); E11.22 Type 2 diabetes mellitus with diabetic chronic kidney disease; N18.32 Chronic kidney disease, stage 3b
CPT/HCPCS: 99204

== ENCOUNTER → 2024-04-20 10:31 | Outpatient (BNVA) | payer OTHER, SELFPAY | PROVIDERS: PCP Internal Medicine; Referring Provider Nurse Practitioner Adult Health; Visit Provider Internal Medicine Hypertension Specialist | DX: G47.33 Obstructive sleep apnea (adult) (pediatric) (principal); J45.40 Moderate persistent asthma, uncomplicated; R06.00 Dyspnea, unspecified; I12.9 Hypertensive chronic kidney disease with stage 1 through stage 4 chronic kidney disease, or unspecified chronic kidney disease; N18.32 Chronic kidney disease, stage 3b; Z99.89 Dependence on other enabling machines and devices | CPT/HCPCS: 99202; 99212 ==

== ENCOUNTER 2024-04-20 13:52 | Outpatient (AMB) | payer OTHER, SELFPAY ==
--- NOTE | 2024-04-20 14:03 | MHC.OFFVIS ---
Vital Signs 04/20/24 14:04 Height 5 ft 7 in Weight 214 lb 15.211 oz BMI 33.7 BP 118/60 Blood Pressure Location Lt brachial Position Sitting Pulse 80 Pulse Source Pulse Oximeter Pulse Oximetry (%) 93 Oxygen Delivery Method Room Air Intake Visit Reasons: Obstructive sleep apnea Planetarium Technician Required: No Allergies Penicillins Allergy (Intermediate, Verified 04/20/24 14:06) ITCHING HPI Comments Details: The patient is a 73-year-old gentleman with a known history of CAD status post surgery in addition to obstructive sleep apnea. His last sleep study occurred in [place] back in 2018 when he had a in-lab study demonstrating an AHI of 28 with hypoxia down to 75%. The patient is placed on CPAP in the CPAP therapy was very effective beneficial. However, the CPAP malfunction and is no longer working. The patient is been struggling with significant untreated obstructive sleep apnea. His is concerned because he stops breathing at nighttime and she needs to wake him up. He has significant snoring and also wakes him up with shortness of breath. He does have headaches at times. I am concerned because of increased cardiovascular risk. This point the patient needs to get another CPAP is set up with the [employer] [facility]. In the meantime the patient also complains of dyspnea on exertion. Moderate severity. He has been deconditioned and also has gained weight. He also does likely contributing. He has had multiple spirometries demonstrating some degree of decrease in the forced vital capacity. On examination appears to have some crepitations as well as crackles. He denies any significant exposure to any fumes or toxins. 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 Denies any exposure to any mold or farm animals. 10/15/2022 the patient is here for pulmonary follow-up visit. He continues to have significant daytime drowsiness. His Ludlow score continues to be elevated 06/06/2024. He is frustrated that he cannot use CPAP. The patient does have significant cardiovascular risk factors. We had him have a repeat sleep study demonstrating severe sleep apnea with an AHI of 37 with significant hypoxia. I am concerned that he is having untreated severe sleep apnea and this could result in worse cardiovascular outcomes. The patient needs to be set up with a new DME company and get re-initiated with CPAP. Therefore will send a script to a local DME company. In the meantime he continues to use his respiratory medicine with good effect. Denies any chest tightness or wheezing. He has not had to use his rescue inhaler. No recent imaging studies to review. Will send a script to his [employer] company for a new CPAP and ultimately have him return in 3-4 months with the CPAP in order to review the results and download. 02/11/2023 the patient is here for a pulmonary follow-up visit. He has lost about 20 lb. The patient has not been using his CPAP regularly. We did review his sleep study again demonstrating severe sleep apnea. The patient understands that he needs to use the machine specially with his cardiovascular risk factors. His mask is to type rate now he does not like it. Will go ahead and request a different mask for him. I did provide him with a medium F30 mask with the hope that he can tolerated better. He is complaining of neuropathy pains in his upper and lower extremities. He had been using trazodone for sleep. But then he was prescribed gabapentin which I believe will be a better agent. Therefore he can stop the trazodone may continue the gabapentin. The patient did not bring his CPAP in. He will bring it to the next visit. From a respiratory status the patient seems to be doing well at the current respiratory regimen. He has not required any prednisone. He does not use his rescue inhaler often. 06/24/2023 the patient is here for a pulmonary follow-up visit. The patient is doing a lot better. He continues to lose weight. He has been using the CPAP now with a nasal mask. He has been tolerating it much better. I did download his machine. It appears that he is using it 83% of the time in more than 4 hours a night. The patient's set up APAP with a maximum pressure of 14 cm. Unfortunately his AHI continues be elevated close to 10. appears to be mainly apneic episodes so therefore will increase the maximum pressure to 16 cm water. The patient may need additional pressures. Still he will try this pressure And see if his effective increase it accordingly. If he continues to have an elevated AHI even at maximum PAP pressures then we need to further discuss the possibility of a BiPAP. From a respiratory status is doing well on his current medicines. He continues to monitor closely his p.o. intake and watching closely his sodium intake. He is taking care of himself and making significant lifestyle changes to improve his overall health. He is already seeing some drastic improvement with some weight loss. He was briefly admitted to the hospital an treated for CHF. 12/16/2023 the patient is here for a pulmonary follow-up visit. Overall the patient has been doing well. He has been using the CPAP every night with a nasal mask. He did get a download from the CPAP and his AHI is down 3.5. His current CPAP settings are 12 to 18 cm. Sometimes he feels the pressure is too low. Of switch him over to a fixed CPAP with a pressure of 15 cm see if we can adjusted that way. I did also add a ramp of 13 cm to start with. If he has any issues with that he will call and will adjust the CPAP online. For some reason his DME company has not been able to get supplies. He is registered in does have a machine that some working order. I will submit another prescription to his DME company [employer] in order for him to start getting supplies. I did provide him with another new sample of a nasal mask in order to continue to provide him with effective equipment in order for him to be able to use it. His hose is broken but he put tape on it therefore he still can use it some. I am hopeful that he can get supplies from his DME company soon. From a respiratory status the patient is doing well has not had any exacerbations. 04/20/2024 the patient is here for a pulmonary follow-up visit. The patient is still doing fairly well. He is trying to use his CPAP as much as possible. He finds that the CPAP has been affecting beneficial. However, he has not been able to get supplies with the DME company. I did provide him with a mask the last visit. Although still having air leakage. Therefore, I did have a F20 AirTouch foam mask medium in he did try anything to fit well. Therefore will request a from his DME company. In addition to that his machine is now older than 5 years. Has broken buttons. Appears to be broken. Will request a replacement machine from [employer] this time. The patient also continues uses respiratory therapy with good effect. Has not had any recent flare-ups. Otherwise he is doing well. Will continue with current respiratory therapy. [facility] Medical History CHF (congestive heart failure) Type 2 diabetes mellitus Chronic heart failure with preserved ejection fraction (HFpEF) Cardiomyopathy Hypoglycemia due to type 2 diabetes mellitus Acute on chronic systolic (congestive) heart failure Defibrillator discharge Hospital discharge follow-up ROE (obstructive sleep apnea) Hypothyroidism Reactive airway disease [id number] syndrome Obesity due to excess calories ROE (obstructive sleep apnea) ROE on CPAP Ischemic cardiomyopathy Atherosclerotic cardiovascular disease GERD (gastroesophageal reflux disease) Hypothyroidism Type 2 diabetes mellitus with hyperglycemia, with long-term current use of insulin Type 2 diabetes mellitus with diabetic polyneuropathy Essential hypertension Chronic systolic (congestive) heart failure ICD (implantable cardioverter-defibrillator) in place HTN (hypertension) CAD (coronary artery disease) Hyperlipidemia LDL goal <70 Dyspnea Bibasilar crackles Sleep apnea Insomnia Delusion of persecution Surgical History H/O inguinal hernia repair History of tooth extraction Hx of CABG (~2019) History of open heart surgery History of bilateral cataract extraction Family History Father No problems noted. Mother CVD (cardiovascular disease) Social History Household Members: Spouse Housing: House Do you presently have visiting nurse or other home services: Yes (every 15 days) Alcohol intake: former Patient Tobacco Use Status: Former Tobacco user e-Cigarette/Vaping Use: Never Used Second Hand Smoke Exposure: No service: No Current occupational status: retired Cognitive needs: Yes Hearing needs: No Vision needs: Yes Review of Systems Const Denies daytime sleepiness, Denies snoring and Denies stops breathing during sleep Eyes Reports no additional complaints, Denies change in vision and Denies other visual disturbances Card Denies chest pain at rest, Denies chest pain with activity, Denies edema, Denies irregular heart rhythm, Denies claudication, Denies dyspnea, Denies dyspnea on exertion, Denies orthopnea, Denies paroxysmal nocturnal dyspnea and Denies slow heart rate Resp Reports cough, Denies dyspnea, Denies dyspnea on exertion and Denies snoring GI Denies abdominal pain, Denies change in bowel habits, Denies excessive flatus, Denies nausea and Denies vomiting Musc Denies abnormal gait, Denies atrophy, Denies deformity, Denies limited range of motion and Reports tingling Skin/Breast Denies bleeding lesions, Denies changing lesions and Denies rash Neuro Denies abnormal gait, Reports tingling and Reports paresthesias Physical Exam Vital Signs: Last Vital Signs Pulse 80 04/20/24 14:04 BP 118/60 04/20/24 14:04 Pulse Ox 93 04/20/24 14:04 Oxygen Delivery Method Room Air 04/20/24 14:04 BMI result Body Mass Index 33.7 Const General: cooperative, comfortable and no acute distress Orientation/consciousness: patient oriented x3 HEENT Other: Unremarkable Neck Neck: Yes normal visual inspection Chest Chest palpation & inspection: normal inspection of the chest Resp Effort & Inspection: normal respiratory effort Auscultation: no crackles, no wheezes and diminished lung sounds Cardio Palpation: normal PMI Heart sounds: S1 normal heart sound present, S2 normal heart sound present, no gallops, no murmurs and no rubs GI Palpation (GI): Soft to palpation Back/Spine/Pelvis Other: unremarkable Skin General skin exam: no rashes or lesions noted Neuro General: patient oriented x3 Extrem General: Yes edema (1+) Psych Mental Status: mental status grossly normal Assessment & Plan Assessment & Plan (1) Reactive airway disease: Code(s): J45.909 - Unspecified asthma, uncomplicated Category: Medical Qualifiers: Asthma complication type: uncomplicated Asthma persistence: persistent Asthma severity: moderate Qualified Code(s): J45.40 - Moderate persistent asthma, uncomplicated (2) ROE (obstructive sleep apnea): Code(s): G47.33 - Obstructive sleep apnea (adult) (pediatric) Category: Medical (3) Dyspnea: Comment: Multifactorial. No significant hypoxia Code(s): R06.00 - Dyspnea, unspecified Category: Medical Qualifiers: Dyspnea type: dyspnea on exertion Qualified Code(s): R06.00 - Dyspnea, unspecified Plan continue PAP therapy for the severe ROE disease, adjusted APAP to CPAP 15. Needs supplies from DME: [employer]. CPAP appears to be broken beyond repair. Older than 5 years. Will go ahead and request a replacement machine and supplies from his [employer] company this time. Continue short-acting beta agonist as needed Continue Symbicort twice a day stopped Gabapentin 100mg at night Diuresis as tolerated Follow-up 4-6 months with APAP Coding Level of Care Code Est Pt Level 4 (97084) Diagnoses Moderate persistent reactive airway disease without complication J45.40 Asthma complication type: uncomplicated Asthma persistence: persistent Asthma severity: moderate ROE (obstructive sleep apnea) G47.33 Dyspnea on exertion R06.00 Dyspnea type: dyspnea on exertion Time Spent (min) 16
[2024-04-20 14:04] VITALS: BP 118/60; PULSE 80; O2SAT 93; BMI 33.7
== END 2024-04-20 14:25 | disposition home or self-care (01) ==
PROVIDERS: PCP Internal Medicine; Visit Provider Hospitalist
DX: J45.40 Moderate persistent asthma, uncomplicated (principal); G47.33 Obstructive sleep apnea (adult) (pediatric); R06.00 Dyspnea, unspecified
CPT/HCPCS: 99214

== ENCOUNTER 2024-04-21 13:36 | Outpatient (AMB) | payer OTHER, SELFPAY ==
--- NOTE | 2024-04-21 13:43 | MHC.PC.OV ---
Vital Signs 04/21/24 13:45 Height 5 ft 7 in Weight 209 lb 8 oz BMI 32.8 BP 100/70 Blood Pressure Location Lt brachial Position Sitting Pulse 79 Pulse Source Pulse Oximeter Pulse Oximetry (%) 94 Oxygen Delivery Method Room Air Intake Visit Reasons: f/u cellulitis Intake Note: Patient is here to follow up on Cellulite. Bindery Production Manager Required: Yes Bindery Production Manager Language: Resident Services Coordinator Name: Johnie Chappell ([id number]) Information Interpreted: non-clinical & clinical Profile Shaper Operator: Not Required per policy Accompanied by: Self / Same As Patient Allergies Penicillins Allergy (Intermediate, Verified 04/21/24 13:44) ITCHING Medication List - Last Reconciled 04/21/24 by Isabel Shepherd PA-C aspirin (Enteric Coated Aspirin) 81 mg PO DAILY blood sugar diagnostic (FreeStyle Lite Strips) As directed 4 times a day blood-glucose meter (FreeStyle Lite Meter kit) As directed blood-glucose meter,continuous (FreeStyle Manjit 3 [place]) As directed blood-glucose sensor (FreeStyle Manjit 3 Sensor device) As directed cholecalciferol (vitamin D3) 50 mcg PO DAILY 90 days clindamycin HCl 300 mg PO QID 7 days CPAP (CPAP Machine/Device) As directed famotidine 20 mg PO BEDTIME 90 days itybldijxtv-keeioxujd-ypthxeae 100-62.5-25 mcg (Trelegy Ellipta) 1 inh inhalation DAILY 28 days furosemide 40 mg PO DAILY 90 days gabapentin 100 mg PO BEDTIME PRN galantamine ER 8 mg PO QAM insulin aspart U-100 (Novolog FlexPen U-100 Insulin aspart) 35 units subcut DAILY@0730 insulin aspart U-100 (Novolog FlexPen U-100 Insulin aspart) 40 units subcut DAILY@1130 insulin aspart U-100 (Novolog FlexPen U-100 Insulin aspart) 45 units subcut DAILY@1630 insulin degludec (Tresiba FlexTouch U-200 insulin) 84 units subcut BEDTIME losartan 25 mg PO DAILY 90 days meclizine 12.5 mg PO Q12H PRN 15 days metformin 1,000 mg PO BID 90 days metoprolol succinate ER 100 mg PO DAILY pen needle, diabetic 4 times a day As directed pramipexole 0.5 mg PO DAILY rosuvastatin 40 mg PO DAILY tirzepatide (Mounjaro) 5 mg subcut WE Ventolin HFA 90 mcg/actuation (albuterol sulfate) 2 puffs PO Q6H PRN NS Tobacco use date assessed: 04/21/24 Fall risk assessment: No Falls in past year Last assessed Fall Risk: 04/21/24 Dental Screening Dental Screen Date: 01/15/24 HPI f/u cellulitis HPI Details 73-year-old male with diabetes mellitus type 2 on long-term current use of insulin, chronic kidney disease stage 3 and chronic systolic congestive heart failure with defibrillator that comes today for follow up on cellulitis. Patient states he has been taking clindamycin for the last 6 days and has 4 pills left. He states the pain has resolved however his leg does still continue to feel heavy and tired occasionally. Does continue to have swelling in the left leg however redness has improved. Denies fevers, confusion, chest pain, lightheadedness. 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 Obesity due to excess calories ROE (obstructive sleep apnea) ROE on CPAP Ischemic cardiomyopathy Atherosclerotic cardiovascular disease GERD (gastroesophageal reflux disease) Hypothyroidism Type 2 diabetes mellitus with hyperglycemia, with long-term current use of insulin Type 2 diabetes mellitus with diabetic polyneuropathy Essential hypertension Chronic systolic (congestive) heart failure ICD (implantable cardioverter-defibrillator) in place HTN (hypertension) CAD (coronary artery disease) Hyperlipidemia LDL goal <70 Dyspnea Bibasilar crackles Sleep apnea Insomnia Delusion of persecution Surgical History H/O inguinal hernia repair History of tooth extraction Hx of CABG (~2019) History of open heart surgery History of bilateral cataract extraction Family History Father No problems noted. Mother CVD (cardiovascular disease) Social History Household Members: Spouse Housing: House Do you presently have visiting nurse or other home services: Yes (every 15 days) Alcohol intake: former Patient Tobacco Use Status: Former Tobacco user e-Cigarette/Vaping Use: Never Used Second Hand Smoke Exposure: No service: No Current occupational status: retired Cognitive needs: Yes Hearing needs: No Vision needs: Yes Questionnaire Thrive Questionnaire Date Thrive assessed: 03/08/24 Are you currently unemployed and looking for a job?: I choose not to answer this question RENNY-7 AMB Questionnaire RENNY-7 Date RENNY - 7 assessed: 11/18/23 Source: Developed by Drs. Godwin Street, Luisa Carlin, Lawrence Escamilla and colleagues, with an educational sonia from [employer]. Review of Systems Const Denies body aches, Denies chills and Denies fever(s) Eyes Reports no additional complaints ENT Reports no additional complaints Card Denies chest pain, Denies leg ulcers, Reports leg edema, Denies lightheadedness and Denies dyspnea Resp Denies dyspnea GI Reports no additional complaints Musc Details: Left leg heaviness Skin/Breast Reports as per HPI Neuro Reports no additional complaints Physical exam (Primary Care) Vital Signs: Last Vital Signs Pulse 79 04/21/24 13:45 BP 100/70 04/21/24 13:45 Pulse Ox 94 04/21/24 13:45 Oxygen Delivery Method Room Air 04/21/24 13:45 BMI result Body Mass Index 32.8 Tobacco/Smoking Status: Tobacco use Status Tobacco use date assessed 04/21/24 04/21/24 13:52 Patient Tobacco Use Status Former Tobacco user 04/21/24 13:52 e-Cigarette/Vaping Use Never Used 04/21/24 13:52 Thrive Assessment: Date of Thrive Assessment Date Thrive assessed 03/08/24 04/21/24 13:52 Const General: cooperative, healthy appearing, comfortable and no acute distress Orientation/consciousness: patient oriented x3 HENMT Head: Yes normocephalic Ears: hearing grossly normal bilaterally General nose exam: Normal external nose present Eyes General: appearance normal, both eyes and all related structures Conjunctivae: conjunctivae normal Neck Neck: Yes full ROM and Yes no lymphadenopathy Resp Effort & Inspection: normal respiratory effort Auscultation: clear to auscultation bilaterally, no crackles, no rales, no rhonchi and no wheezes Cardio Rate: regular rate Rhythm: regular rhythm Skin General skin exam: no rashes or lesions noted Neuro General: patient oriented x3 Gait exam (Neuro): Normal gait present Extrem Other: Left lower extremity 1+ pitting edema with mild erythema and no tenderness to palpation. Sensation and pulses intact in bilateral lower extremities. General: Yes normal to inspection, Yes full ROM and No edema Psych Affect: normal affect Attitude: cooperative Insight: Good insight present (Psych) Judgement: Good judgement present (Psych) Assessment and Plan Assessment & Plan (1) Cellulitis: Code(s): L03.90 - Cellulitis, unspecified Qualifiers: Site of cellulitis: extremity Site of cellulitis of extremity: lower extremity Laterality: left Qualified Code(s): L03.116 - Cellulitis of left lower limb Plan: Infection does appear to have cleared at this time. He still does have some residual erythema in the left lower extremity however has greatly improved is no longer having tenderness. Continue to monitor for signs of infection and please present to the office for re-evaluation if you began to have fever, pain or redness in the leg. (2) Left leg swelling: Code(s): M79.89 - Other specified soft tissue disorders Plan: He does continue to have swelling in the left lower leg and advised patient to elevate the legs when possible and use compression stockings. Also discussed with the patient the importance of regular ambulation as exercise improves lower extremity swelling. Also we will order for left lower extremity ultrasound to rule out DVT. Plan This note was constructed using voice recognition software. While every effort has been made to ensure accuracy and clinical laboratory manager, still areas may have been included sometimes these areas may affect the content or meeting of the given symptoms. Total time spent caring for the patient today was 20 minutes. This includes time spent before the visit reviewing the chart, time spent during the visit, and time spent after the visit and documentation. Orders: Orders US venous duplex LE LT Today M79.89 - Other specified soft tissue disorders Medications: Refilled pramipexole 0.5 mg PO DAILY 90 tabs 0RF Coding Level of Care Code Est Pt Level 4 (75634) Diagnoses Cellulitis of left lower extremity L03.116 Site of cellulitis: extremity Site of cellulitis of extremity: lower extremity Laterality: left Left leg swelling M79.89
[2024-04-21 13:45] VITALS: BP 100/70; PULSE 79; O2SAT 94; BMI 32.8
== END 2024-04-21 14:46 | disposition home or self-care (01) ==
PROVIDERS: PCP Internal Medicine
DX: L03.116 Cellulitis of left lower limb (principal); M79.89 Other specified soft tissue disorders

== ENCOUNTER → 2024-04-21 13:36 | Outpatient (BNVA) | payer OTHER, SELFPAY | PROVIDERS: PCP Internal Medicine | DX: L03.116 Cellulitis of left lower limb (principal); R60.0 Localized edema | CPT/HCPCS: 99212 ==

== ENCOUNTER 2024-04-22 14:48 | Outpatient (REF) | payer OTHER, SELFPAY ==
--- NOTE | ~2024-04-22 | US_ITS ---
EXAMINATION: US TRIPLEX LOWER EXTREMITY, LEFT CLINICAL INFORMATION: Left lower extremity edema COMPARISON: None available. TECHNIQUE: Color-flow triplex imaging with spectral analysis and compression Doppler were performed on the left lower extremity. FINDINGS: Respiratory variation, normal compression and augmented flow are noted throughout the left lower extremity. The visualized common femoral vein, superficial femoral vein, profunda femoral vein, popliteal vein and midcalf peroneal and posterior tibial venous segments show no evidence of deep venous thrombosis. There is no Cruz's cyst. US/US venous duplex LE LT IMPRESSION: No evidence of deep venous thrombosis involving the left lower extremity. Electronically signed by: Sergo Borja MD 04/22/2024 03:52 PM EDT
== END 2024-04-22 14:49 | disposition home or self-care (01) ==
LOC: HO.US 14:48
DX: R60.0 Localized edema (principal)
CPT/HCPCS: 93971

== ENCOUNTER → 2024-04-26 23:59 | Outpatient (BNV) | payer OTHER, SELFPAY ==
--- NOTE | 2024-05-03 13:57 | MHC.OFFVIS ---
Intake Visit Reasons: Remote ICD check- Medtronic Allergies Penicillins Allergy (Intermediate, Verified 04/21/24 13:44) ITCHING PFS Medical History CHF (congestive heart failure) Type 2 diabetes mellitus Chronic heart failure with preserved ejection fraction (HFpEF) Cardiomyopathy Hypoglycemia due to type 2 diabetes mellitus Acute on chronic systolic (congestive) heart failure Defibrillator discharge Hospital discharge follow-up ROE (obstructive sleep apnea) Hypothyroidism Reactive airway disease Ikye-[id number]-70 syndrome Obesity due to excess calories ROE (obstructive sleep apnea) ROE on CPAP Ischemic cardiomyopathy Atherosclerotic cardiovascular disease GERD (gastroesophageal reflux disease) Hypothyroidism Type 2 diabetes mellitus with hyperglycemia, with long-term current use of insulin Type 2 diabetes mellitus with diabetic polyneuropathy Essential hypertension Chronic systolic (congestive) heart failure ICD (implantable cardioverter-defibrillator) in place HTN (hypertension) CAD (coronary artery disease) Hyperlipidemia LDL goal <70 Dyspnea Bibasilar crackles Sleep apnea Insomnia Delusion of persecution Surgical History H/O inguinal hernia repair History of tooth extraction Hx of CABG (~2019) History of open heart surgery History of bilateral cataract extraction Family History Father No problems noted. Mother CVD (cardiovascular disease) Social History Household Members: Spouse Housing: House Do you presently have visiting nurse or other home services: Yes (every 15 days) Alcohol intake: former Patient Tobacco Use Status: Former Tobacco user e-Cigarette/Vaping Use: Never Used Second Hand Smoke Exposure: No service: No Current occupational status: retired Cognitive needs: Yes Hearing needs: No Vision needs: Yes Office Procedures Cardiac Device Check Cardiac Device Check Details: Date of service 04/26/2024; Battery life >6 years; normal lead parameters; no treated VT/VF; normal ICD function. [id number] Cardiac Interrogation, implant defibrillator w/interim Procedure code (CPT) selection complete Assessment & Plan Assessment & Plan (1) ICD (implantable cardioverter-defibrillator) in place: Comment: Medtronic single chamber Code(s): Z95.810 - Presence of automatic (implantable) cardiac defibrillator Category: Medical (2) Ischemic cardiomyopathy: Code(s): I25.5 - Ischemic cardiomyopathy Category: Medical Plan x Coding Level of Care Code Procedure Only Diagnoses ICD (implantable cardioverter-defibrillator) in place Z95.810 Ischemic cardiomyopathy I25.5 CPT Codes Cardiac Device Check - Cardiac Device 13: [id number] Cardiac Interrogation, implant defibrillator w/interim ([id number])
== END ==
PROVIDERS: PCP Internal Medicine; Visit Provider Internal Medicine
DX: I25.5 Ischemic cardiomyopathy (principal); Z95.810 Presence of automatic (implantable) cardiac defibrillator
CPT/HCPCS: 93295

== ENCOUNTER → 2024-04-26 23:59 | Outpatient (BNV) | payer OTHER, SELFPAY ==
--- NOTE | 2024-05-03 13:02 | A.OFFVIS_ITS ---
Intake Visit Reasons: Remote HF monitoring- Medtronic Allergies Penicillins Allergy (Intermediate, Verified 04/21/24 13:44) ITCHING PFSH Medical History CHF (congestive heart failure) Type 2 diabetes mellitus Chronic heart failure with preserved ejection fraction (HFpEF) Cardiomyopathy Hypoglycemia due to type 2 diabetes mellitus Acute on chronic systolic (congestive) heart failure Defibrillator discharge Hospital discharge follow-up ROE (obstructive sleep apnea) Hypothyroidism Reactive airway disease [id number] syndrome Obesity due to excess calories ROE (obstructive sleep apnea) ROE on CPAP Ischemic cardiomyopathy Atherosclerotic cardiovascular disease GERD (gastroesophageal reflux disease) Hypothyroidism Type 2 diabetes mellitus with hyperglycemia, with long-term current use of insulin Type 2 diabetes mellitus with diabetic polyneuropathy Essential hypertension Chronic systolic (congestive) heart failure ICD (implantable cardioverter-defibrillator) in place HTN (hypertension) CAD (coronary artery disease) Hyperlipidemia LDL goal <70 Dyspnea Bibasilar crackles Sleep apnea Insomnia Delusion of persecution Surgical History H/O inguinal hernia repair History of tooth extraction Hx of CABG (~2019) History of open heart surgery History of bilateral cataract extraction Family History Father No problems noted. Mother CVD (cardiovascular disease) Social History Household Members: Spouse Housing: House Do you presently have visiting nurse or other home services: Yes (every 15 days) Alcohol intake: former Patient Tobacco Use Status: Former Tobacco user e-Cigarette/Vaping Use: Never Used Second Hand Smoke Exposure: No service: No Current occupational status: retired Cognitive needs: Yes Hearing needs: No Vision needs: Yes Office Procedures Cardiac Device Check Cardiac Device Check Details: Date of service- 04/26/2024; based on impedance data and physiological variables, there is possible OptiVol fluid accumulation from 20 of March to 09 of April. [id number] Cardiac Device Interrogation, cardio physiologic monitor Procedure code (CPT) selection complete Assessment & Plan Assessment & Plan (1) ICD (implantable cardioverter-defibrillator) in place: Comment: Medtronic single chamber Code(s): Z95.810 - Presence of automatic (implantable) cardiac defibrillator Category: Medical (2) Ischemic cardiomyopathy: Code(s): I25.5 - Ischemic cardiomyopathy Category: Medical Plan x Coding Level of Care Code Procedure Only Diagnoses ICD (implantable cardioverter-defibrillator) in place Z95.810 Ischemic cardiomyopathy I25.5 CPT Codes Cardiac Device Check - Cardiac Device 15: [id number] Cardiac Device Interr ogation, cardio physiologic monitor ([id number])
== END ==
PROVIDERS: PCP Internal Medicine; Visit Provider Internal Medicine
DX: I25.5 Ischemic cardiomyopathy (principal); Z95.810 Presence of automatic (implantable) cardiac defibrillator
CPT/HCPCS: 93297

== ENCOUNTER 2024-05-06 16:42 | Outpatient (REF) | payer OTHER, SELFPAY ==
--- NOTE | ~2024-05-06 | CT_ITS ---
EXAMINATION: CT HEAD WITHOUT CONTRAST CLINICAL INFORMATION: Tremor, unspecified. COMPARISON: 04/16/2021. TECHNIQUE: Contiguous axial imaging was performed from the skull base to vertex without intravenous administration of contrast. This CT examination was performed using dose optimization techniques as appropriate, variously including the following: *Automated exposure control *Adjustment of mA and/or kV according to patient size (this includes techniques or standardized protocols for targeted exams where dose is matched to indication/reason for exam; i.e. extremities or head) *Use of iterative reconstruction technique DLP: 988 mGy-cm FINDINGS: There is no evidence of intracranial hemorrhage or extra-axial fluid collection. There is no mass effect, or edema. No CT evidence of acute territorial infarct. Ventricles, sulci, and cisterns are mildly diffusely prominent, in keeping with age-related cerebral and cerebellar involutional changes. No abnormal patterns of atrophy. No hydrocephalus. No midline shift. There are moderate predominantly periventricular hemispheric white matter hyperintensities, in keeping with small vessel ischemic changes, minimally progressed from the prior. 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 Old lacunar type infarct left anterior gangliocapsular region, stable. Sella appears normal. Mild to moderate atheromatous calcification of the bilateral carotid siphons. Globes and orbital contents image normally. There has been bilateral lens replacements. No extracranial soft tissue abnormalities. There is cerumen in both EACs. The paranasal sinuses, mastoid air cells, and tympanic cavities are normally aerated. No suspicious bony abnormalities. CT/CT head/brain wo IV con IMPRESSION: 1. No acute intracranial abnormalities. 2. Minimally progressed small vessel ischemic changes, moderate in severity. 3. Interval development old lacunar type infarct left anterior thalamus. Electronically signed by: Tony Lebron MD 06/11/2024 10:59 AM [facility]
== END 2024-05-06 16:43 | disposition home or self-care (01) ==
LOC: HO.CT 16:42
PROVIDERS: PCP Internal Medicine; Visit Provider Internal Medicine
DX: R25.1 Tremor, unspecified (principal); R41.3 Other amnesia
CPT/HCPCS: 70450

== ENCOUNTER → 2024-05-06 16:44 | Outpatient (BNV) | payer OTHER, SELFPAY | PROVIDERS: PCP Internal Medicine; Visit Provider Radiology Diagnostic Radiology | DX: R25.1 Tremor, unspecified (principal) | CPT/HCPCS: 70450 ==

== ENCOUNTER 2024-05-12 10:15 | Outpatient (REF) | payer OTHER, SELFPAY ==
[2024-05-12 12:54] LABS: Anion Gap 11 (12-20); Blood Urea Nitrogen 27 mg/dL (9-16); Calcium 8.9 mg/dL (8.4-10.2); Carbon Dioxide 28 mmol/L (22-29); Chloride 104 mmol/L (96-108); Estimated Glomerular Filt Rate 50; Glucose Random 160 mg/dL (60-115); Potassium 4.6 mmol/L (3.3-5.1); Sodium 138 mmol/L (135-145)
== END 2024-05-12 10:16 | disposition home or self-care (01) ==
LOC: HO.LAB 10:15
PROVIDERS: Absent Provider Internal Medicine Hypertension Specialist; PCP Internal Medicine; Visit Provider Internal Medicine
DX: I12.9 Hypertensive chronic kidney disease with stage 1 through stage 4 chronic kidney disease, or unspecified chronic kidney disease (principal); N18.32 Chronic kidney disease, stage 3b
CPT/HCPCS: 36415; 80048

== ENCOUNTER 2024-05-14 13:42 | Outpatient (AMB) | payer OTHER, SELFPAY ==
[2024-05-14 13:55] VITALS: BP 116/68; PULSE 72; O2SAT 94; BMI 32.7
--- NOTE | 2024-05-14 13:55 | HO.NEPHOV ---
Vital Signs 05/14/24 13:55 Height 5 ft 7 in Weight 209 lb BMI 32.7 BP 116/68 Blood Pressure Location Rt brachial Position Sitting Pulse 72 Pulse Source Pulse Oximeter Pulse Oximetry (%) 94 Oxygen Delivery Method Room Air Intake Visit Reasons: CKD/ Conf Cutting Tool Sharpener Required: Yes Cutting Tool Sharpener Name: [id number] remedios Accompanied by: Spouse Allergies Penicillins Allergy (Intermediate, Verified 05/20/24 15:44) ITCHING HPI Comments Details: 68-year-old man with a history of longstanding diabetes mellitus hypertension for evaluation of chronic kidney disease. He has non nephrotic range proteinuria. Has been recent increase in serum creatinine. He has had episodes of low blood pressure. He is having some lightheadedness when he is trying to stand up. Cutting Tool Sharpener service was used. [facility] Medical History CHF (congestive heart failure) Type 2 diabetes mellitus Chronic heart failure with preserved ejection fraction (HFpEF) Cardiomyopathy Hypoglycemia due to type 2 diabetes mellitus Acute on chronic systolic (congestive) heart failure Defibrillator discharge Hospital discharge follow-up ROE (obstructive sleep apnea) Hypothyroidism Reactive airway disease [id number]-91 syndrome Obesity due to excess calories ROE (obstructive sleep apnea) ROE on CPAP Ischemic cardiomyopathy Atherosclerotic cardiovascular disease GERD (gastroesophageal reflux disease) Hypothyroidism Type 2 diabetes mellitus with hyperglycemia, with long-term current use of insulin Type 2 diabetes mellitus with diabetic polyneuropathy Essential hypertension Chronic systolic (congestive) heart failure ICD (implantable cardioverter-defibrillator) in place HTN (hypertension) CAD (coronary artery disease) Hyperlipidemia LDL goal <70 Dyspnea Bibasilar crackles Sleep apnea Insomnia Delusion of persecution Surgical History H/O inguinal hernia repair History of tooth extraction Hx of CABG (~2019) History of open heart surgery History of bilateral cataract extraction Family History Father No problems noted. Mother CVD (cardiovascular disease) Social History Household Members: Spouse Housing: House Do you presently have visiting nurse or other home services: Yes (every 15 days) Alcohol intake: former Patient Tobacco Use Status: Former Tobacco user e-Cigarette/Vaping Use: Never Used Second Hand Smoke Exposure: No service: No Current occupational status: retired Cognitive needs: Yes Hearing needs: No Vision needs: Yes Physical Exam Vital Signs: Last Vital Signs Pulse 72 05/14/24 13:55 BP 116/68 05/14/24 13:55 Pulse Ox 94 05/14/24 13:55 Oxygen Delivery Method Room Air 05/14/24 13:55 BMI result Body Mass Index 32.7 Results Reviewed Nephrology Results: Sodium 138 mmol/L (135-145) 05/12/24 Potassium 4.6 mmol/L (3.3-5.1) 05/12/24 Chloride 104 mmol/L (96-108) 05/12/24 Carbon Dioxide 28 mmol/L (22-29) 05/12/24 BUN 27 mg/dL (9-16) H 05/12/24 Creatinine 1.38 mg/dL (0.5-1.4) 05/12/24 Calcium 8.9 mg/dL (8.4-10.2) 05/12/24 Renal US 05/21/24 Assessment & Plan Assessment & Plan (1) Essential hypertension: Code(s): I10 - Essential (primary) hypertension Category: Medical (2) CKD (chronic kidney disease) stage 3, GFR 30-59 ml/min: Code(s): N18.30 - Chronic kidney disease, stage 3 unspecified Category: Medical Qualifiers: Chronic kidney disease stage 3 subtype: stage 3b (GFR 30-44) Qualified Code(s): N18.32 - Chronic kidney disease, stage 3b Plan 68-year-old man with a history of stage III CKD in a setting of longstanding hypertension diabetes mellitus. He has hypertensive diabetic kidney disease. Obstructive uropathy should be ruled out. No evidence of active glomerular nephritis at this point. He could have a component of ALPESH from hypoperfusion secondary to relatively low blood pressure. Blood pressure is relatively low based on the previous readings. For now I will stop amlodipine and watch his blood pressure. Recommendations workup as outlined below including renal ultrasonogram and urine studies. Optimize blood pressure and avoid hypotension. We will hold amlodipine for time being. He will benefit from SGLT-2 Given the degree of renal failure and current EGFR I would hold off on using metformin due to risk of lactic acidosis. Orders: Orders Magnesium 3 Months N18.32 - Chronic kidney disease, stage 3b, I10 - Essential (primary) hypertension Complete Blood Count Auto Diff 3 Months N18.32 - Chronic kidney disease, stage 3b, I10 - Essential (primary) hypertension Basic Metabolic Panel 3 Months N18.32 - Chronic kidney disease, stage 3b, I10 - Essential (primary) hypertension renal BI 05/21/24 I10 - Essential (primary) hypertension, N18.32 - Chronic kidney disease, stage 3b Coding Level of Care Code Est Pt Level 4 (35452) Diagnoses Essential hypertension I10 Stage 3b chronic kidney disease N18.32 Chronic kidney disease stage 3 subtype: stage 3b (GFR 30-44)
== END 2024-05-14 14:19 | disposition home or self-care (01) ==
PROVIDERS: PCP Internal Medicine; Visit Provider Internal Medicine Hypertension Specialist
DX: I12.9 Hypertensive chronic kidney disease with stage 1 through stage 4 chronic kidney disease, or unspecified chronic kidney disease (principal); N18.32 Chronic kidney disease, stage 3b
CPT/HCPCS: 99214

== ENCOUNTER → 2024-05-14 13:42 | Outpatient (BNVA) | payer OTHER, SELFPAY | PROVIDERS: PCP Internal Medicine; Visit Provider Internal Medicine Hypertension Specialist | DX: E11.65 Type 2 diabetes mellitus with hyperglycemia (principal); E11.42 Type 2 diabetes mellitus with diabetic polyneuropathy; E11.649 Type 2 diabetes mellitus with hypoglycemia without coma; I13.0 Hypertensive heart and chronic kidney disease with heart failure and stage 1 through stage 4 chronic kidney disease, or unspecified chronic kidney disease; I50.32 Chronic diastolic (congestive) heart failure; N18.32 Chronic kidney disease, stage 3b; Z79.4 Long term (current) use of insulin | CPT/HCPCS: 99211; 99212 ==

== ENCOUNTER 2024-05-14 14:28 | Outpatient (AMB) | payer OTHER, SELFPAY ==
--- NOTE | 2024-05-14 14:47 | A.OFFVIS_ITS ---
Intake Intake Visit Reasons: 60 Min-conf Educational Fundraising Director Required: Yes Educational Fundraising Director Language: Internal Audit Director Name: Triston [id number] [place]ompanied by: Spouse Allergies Penicillins Allergy (Intermediate, Verified 05/14/24 13:58) ITCHING HPI Comprehensive Diabetes Asmnt Most Recent Diabetes Results: Hemoglobin A1c 8.2 % 08/14/19 Microalb/Creat Ratio 932.9 ug/mg cr (<30) H 03/25/24 Cholesterol 133 mg/dL (<200) 03/25/24 HDL Cholesterol 44 mg/dL (>40) 03/25/24 Triglycerides 120 mg/dL (<150) 03/25/24 Creatinine 1.38 mg/dL (0.5-1.4) 05/12/24 Blood Urea Nitrogen 27 mg/dL (9-16) H 05/12/24 Sodium 138 mmol/L (135-145) 05/12/24 Potassium 4.6 mmol/L (3.3-5.1) 05/12/24 Chloride 104 mmol/L (96-108) 05/12/24 Carbon Dioxide 28 mmol/L (22-29) 05/12/24 Calcium 8.9 mg/dL (8.4-10.2) 05/12/24 AST 32 U/L (5-37) 03/25/24 ALT 38 U/L (0-40) 03/25/24 Total Protein 6.5 g/dL (6.5-8.0) 03/25/24 Albumin 3.5 g/dL (3.5-5.0) 03/25/24 [facility] Medical History CHF (congestive heart failure) Type 2 diabetes mellitus Chronic heart failure with preserved ejection fraction (HFpEF) Cardiomyopathy Hypoglycemia due to type 2 diabetes mellitus Acute on chronic systolic (congestive) heart failure Defibrillator discharge Hospital discharge follow-up ROE (obstructive sleep apnea) Hypothyroidism Reactive airway disease 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 Obesity due to excess calories ROE (obstructive sleep apnea) ROE on CPAP Ischemic cardiomyopathy Atherosclerotic cardiovascular disease GERD (gastroesophageal reflux disease) Hypothyroidism Type 2 diabetes mellitus with hyperglycemia, with long-term current use of insulin Type 2 diabetes mellitus with diabetic polyneuropathy Essential hypertension Chronic systolic (congestive) heart failure ICD (implantable cardioverter-defibrillator) in place HTN (hypertension) CAD (coronary artery disease) Hyperlipidemia LDL goal <70 Dyspnea Bibasilar crackles Sleep apnea Insomnia Delusion of persecution Surgical History H/O inguinal hernia repair History of tooth extraction Hx of CABG (~2019) History of open heart surgery History of bilateral cataract extraction Family History Father No problems noted. Mother CVD (cardiovascular disease) Social History Household Members: Spouse Housing: House Do you presently have visiting nurse or other home services: Yes (every 15 days) Alcohol intake: former Patient Tobacco Use Status: Former Tobacco user e-Cigarette/Vaping Use: Never Used Second Hand Smoke Exposure: No service: No Current occupational status: retired Cognitive needs: Yes Hearing needs: No Vision needs: Yes Assessment & Plan Assessment & Plan (1) Type 2 diabetes mellitus: Code(s): E11.9 - Type 2 diabetes mellitus without complications Qualifiers: Diabetes mellitus rn transition insulin use: with usp use Diabetes mellitus complication status: with hyperglycemia Qualified Code(s): E11.65 - Type 2 diabetes mellitus with hyperglycemia; Z79.4 - correction (current) use of insulin Plan: Personal Continuous Glucose Monitor: Patients CGM information reviewed Reviewed patient's sensor data: Hypoglycemia: ? 1% Hyperglycemia:?73% Time in Range:? 26% Average glucose for the last 2 weeks? 276 mg/dL Patient reports he has not received his freestyle Manjit 3 sensors, patient brought in today the old freestyle Manjit 14 day sensor data, there was very limited data on download, patient's glucose levels are still running above target. Patient reports he is taking Tresiba U200 84 units Patient stated that at last visit with Dr. Devante Hannon he was told to stop taking NovoLog Continues with Mounjaro 5 mg weekly Patient was recently treated for cellulitis in his left leg, reports he completed antibiotics approximately 2 weeks ago. But he is very concerned because now the skin on his leg is peeling. Patient denies swelling, redness, tenderness on the leg but is concerned that it is not healed properly. Explained to patient he needs to follow-up with PCP or Dr. Medardo Hannon, his appointment with PCP was several months out. Spoke with [facility] pharmacy, patient has freestyle Freestyle manjit reader at home, but has no freestyle Manjit 3 sensors Patient given 1 sample sensor, ask the pharmacist to refill patient is Manjit 3 sensor Patient stated he understood and will knot picker cloth sensors Patient able to insert sensor independently at home without issue.? Patient will follow-up with Dr. Devante Hannon regarding concern about left leg, follow-up with natural resources extension educator in 1 month Portions of this note were created using voice recognition software, please excuse any words or phrases that may have been misinterpreted. Patient Instructions: Instrucciones para el paciente: CGM proporciona informaci?n sobre el control de la glucosa en candi a lo jody del d?a, incluidas la hiperglucemia y la hipoglucemia. Contin?e controlando la glucosa en candi seg?n las instrucciones. Siga las pautas de nutrici?n proporcionadas. Informe cualquier molestia de inmediato al proveedor de atenci?n m?dica. Mantente aleida hidratado. Puede ba?arse, ducharse, nadar y hacer ejercicio mientras usa el sensor de glucosa. No sumerja el sensor de glucosa en agua tawny m?s de 30 minutos. Retire el sensor para elvia resonancia magn?kadie o elvia tomograf?a computarizada. Evite la m?quina de tien X en los aeropuertos: retire el sensor o solicite la varita Coding Level of Care Code Est Pt Level 1 (02148) Diagnoses Type 2 diabetes mellitus with hyperglycemia, with long-term current use of insulin E11.65; Z79.4 Diabetes mellitus rn transition insulin use: with usp use Diabetes mellitus complication status: with hyperglycemia
== END 2024-05-14 15:25 | disposition home or self-care (01) ==
PROVIDERS: PCP Internal Medicine; Visit Provider Registered Nurse Diabetes Educator
DX: E11.65 Type 2 diabetes mellitus with hyperglycemia (principal); Z79.4 Long term (current) use of insulin

== ENCOUNTER 2024-05-20 15:03 | Outpatient (AMB) | payer OTHER, SELFPAY ==
[2024-05-20 15:21] VITALS: BP 118/72; PULSE 62; BMI 32.8
--- NOTE | 2024-05-20 15:21 | A.OFFVIS_ITS ---
Vital Signs 05/20/24 15:21 Height 5 ft 7 in Weight 209 lb 7.026 oz BMI 32.8 BP 118/72 Blood Pressure Location Rt brachial Position Sitting Pulse 62 Pulse Source Pulse Oximeter Intake Visit Reasons: T2DM Intake Note: Patient presents today for a follow-up on Type 2 Diabetes Mellitus: Last Diabetic Eye Exam: 6 MONTHS AGO Last Podiatry Exam- Does not see a Manufacturing Intern Most recent HbA1c- 10.4%, 05/20/2024 Random Glucose- 143 mg/dL, Today Knowledge Manager Required: Yes Knowledge Manager Language: Accounting Software Specialist Services: Knowledge Manager Present (via video call) Knowledge Manager Name: OREN Whittaker/ALEX ORNELAS Information Interpreted: non-clinical & clinical Accompanied by: Self / Same As Patient Allergies Penicillins Allergy (Intermediate, Verified 05/20/24 15:44) ITCHING HPI Comments Details: 73 year old male who is seen in f/u for T2DM Initially diagnosed with T2DM approx 30 years ago. On insulin last six years. Current regimen: Tresiba 84units -this is all he has been taking for the last month as he was taking it very inconsistently and taking it/not taking it based on blood sugar readings. He was having some hypoglycemia 10pm to 4am and contributing it to the long acting insulin. At last visit told him to hold short acting and just take just long acting every single day then we would add back on short acting accordingly. As expected he has had no low blood glucose. Will add back on his short acting but decrease dinner time dose Novolog breakfast 35 units lunch 40 units supper 45 units-changing today to 35 units metformin 1000mg bid A1C 10.4% from 11.9% Manjit downloaded today GMI unk as 46% active, average 276, high 73%, target 26%, low 0% At last visit treated for cellulitis of the left lower extremity. It has resolved ROS CONSTITUTIONAL: Denies weight loss, fever and chills. HEENT: Denies changes in vision and hearing. RESPIRATORY: Denies SOB and cough. CV: Denies palpitations and CP GI: Denies abdominal pain, nausea, vomiting and diarrhea. : Denies dysuria and urinary frequency. MSK: Denies new myalgia and joint pain. SKIN: Denies rash and pruritus. NEUROLOGICAL: Denies headache PSYCHIATRIC: Denies recent changes in mood. PHYSICAL EXAM: GENERAL: Alert and oriented x 3. NAD EYES: EOMI. Anicteric. HENT: Moist mucous membranes. No scleral icterus. LUNGS: Clear to auscultation bilaterally. CARDIOVASCULAR: Regular rate and rhythm. ABDOMEN: Soft, non-tender +bs EXTREMITIES: No edema. Non-tender. SKIN: Warmth, redness and swelling of left lower extremity. No purulence NEUROLOGIC: No focal neurological deficits. CN II-XII grossly intact PSYCHIATRIC: Cooperative. 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 Obesity due to excess calories ROE (obstructive sleep apnea) ROE on CPAP Ischemic cardiomyopathy Atherosclerotic cardiovascular disease GERD (gastroesophageal reflux disease) Hypothyroidism Type 2 diabetes mellitus with hyperglycemia, with long-term current use of insulin Type 2 diabetes mellitus with diabetic polyneuropathy Essential hypertension Chronic systolic (congestive) heart failure ICD (implantable cardioverter-defibrillator) in place HTN (hypertension) CAD (coronary artery disease) Hyperlipidemia LDL goal <70 Dyspnea Bibasilar crackles Sleep apnea Insomnia Delusion of persecution Surgical History H/O inguinal hernia repair History of tooth extraction Hx of CABG (~2019) History of open heart surgery History of bilateral cataract extraction Family History Father No problems noted. Mother CVD (cardiovascular disease) Social History Household Members: Spouse Housing: House Do you presently have visiting nurse or other home services: Yes (every 15 days) Alcohol intake: former Patient Tobacco Use Status: Former Tobacco user e-Cigarette/Vaping Use: Never Used Second Hand Smoke Exposure: No service: No Current occupational status: retired Cognitive needs: Yes Hearing needs: No Vision needs: Yes Physical Exam Vital Signs: Last Vital Signs Pulse 62 05/20/24 15:21 BP 118/72 05/20/24 15:21 BMI result Body Mass Index 32.8 Results AMB Hemoglobin A1c AMB Hemoglobin A1c 10.4 % Last Edit by OREN Whittaker on 05/20/24 15:4 6 Results Reviewed Results Reviewed: Laboratory Last Values Glucose (Clinic) 143 mg/dL (60-115) H 05/20/24 15:23 Hgb A1c (Clinic) 10.4 % (4.0-6.0) H 05/20/24 15:43 Assessment & Plan Assessment & Plan (1) Type 2 diabetes mellitus with hyperglycemia, with long-term current use of insulin: Code(s): E11.65 - Type 2 diabetes mellitus with hyperglycemia; Z79.4 - custodial (current) use of insulin Category: Medical Plan: Uncontrolled. Restart short acting insulin with reduction in dinner time dose. Return in one month. Orders: Orders AMB Hemoglobin A1c 05/20/24 E11.65 - Type 2 diabetes mellitus with hyperg lycemia, Z79.4 - parts counterman (current) use of insulin Medications: Changed From insulin aspart U-100 (Novolog FlexPen U-100 Insulin aspart) 45 units subcut DAILY@1630 To insulin aspart U-100 (Novolog FlexPen U-100 Insulin aspart) with dinner 35 units (0.35 mL) subcut DAILY 15 mL 3RF Coding Level of Care Code Est Pt Level 4 (53678) Diagnoses Type 2 diabetes mellitus with hyperglycemia, with long-term current use of insulin E11.65; Z79.4
[2024-05-20 15:32] LABS: Glucose, Whole Blood 143 mg/dL (60-115)
== END 2024-05-20 15:56 | disposition home or self-care (01) ==
PROVIDERS: PCP Internal Medicine; Visit Provider Internal Medicine
DX: E11.65 Type 2 diabetes mellitus with hyperglycemia (principal); Z79.4 Long term (current) use of insulin

== ENCOUNTER → 2024-05-20 15:03 | Outpatient (BNVA) | payer OTHER, SELFPAY | PROVIDERS: PCP Internal Medicine; Visit Provider Internal Medicine | DX: E11.65 Type 2 diabetes mellitus with hyperglycemia (principal); Z79.4 Long term (current) use of insulin | CPT/HCPCS: 82947; 83036; 99212 ==

== ENCOUNTER 2024-05-21 13:04 | Outpatient (REF) | payer OTHER, SELFPAY ==
--- NOTE | ~2024-05-21 | US_ITS ---
EXAMINATION: US RETROPERITONEAL LIMITED (RENAL ONLY) CLINICAL INFORMATION: Hypertension. COMPARISON: Renal ultrasound 09/08/2020 TECHNIQUE: Ultrasound of the kidneys was performed FINDINGS: RIGHT KIDNEY: 11.2 x 5.6 x 6.1 cm (SAG x AP x TRV). The kidney is normal in size, contour, and echogenicity. Renal cortical thickness is normal. No calculi or hydronephrosis. There is an isoechoic rounded 1.1 cm possible mass in the mid right kidney which may merely be some lobulation of cortex, although I cannot be certain of this. LEFT KIDNEY: 11.9 x 5.4 x 3.8 cm (SAG x AP x TRV). The kidney is normal in size, contour, and echogenicity. Renal cortical thickness is normal. No calculi or focal parenchymal lesions. No hydronephrosis. US/US renal BI IMPRESSION: Question of a 1.1 cm right renal mass. MRI is recommended for further evaluation. Alternatively, given the small size of this lesion, a follow-up ultrasound in 6 months to one year may be reasonable to document stability. Electronically signed by: Kade Lugo MD 05/21/2024 04:30 PM EDT
== END 2024-05-21 13:05 | disposition home or self-care (01) ==
LOC: HO.US 13:04
PROVIDERS: PCP Internal Medicine; Visit Provider Internal Medicine Hypertension Specialist
DX: I12.9 Hypertensive chronic kidney disease with stage 1 through stage 4 chronic kidney disease, or unspecified chronic kidney disease (principal); N18.32 Chronic kidney disease, stage 3b
CPT/HCPCS: 76775

== ENCOUNTER → 2024-05-27 23:59 | Outpatient (BNV) | payer OTHER, SELFPAY ==
--- NOTE | 2024-05-31 11:26 | MHC.OFFVIS ---
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 Obesity due to excess calories ROE (obstructive sleep apnea) ROE on CPAP Ischemic cardiomyopathy Atherosclerotic cardiovascular disease GERD (gastroesophageal reflux disease) Hypothyroidism Type 2 diabetes mellitus with hyperglycemia, with long-term current use of insulin Type 2 diabetes mellitus with diabetic polyneuropathy Essential hypertension Chronic systolic (congestive) heart failure ICD (implantable cardioverter-defibrillator) in place HTN (hypertension) CAD (coronary artery disease) Hyperlipidemia LDL goal <70 Dyspnea Bibasilar crackles Sleep apnea Insomnia Delusion of persecution Surgical History H/O inguinal hernia repair History of tooth extraction Hx of CABG (~2019) History of open heart surgery History of bilateral cataract extraction Family History Father No problems noted. Mother CVD (cardiovascular disease) Social History Household Members: Spouse Housing: House Do you presently have visiting nurse or other home services: Yes (every 15 days) Alcohol intake: former Patient Tobacco Use Status: Former Tobacco user e-Cigarette/Vaping Use: Never Used Second Hand Smoke Exposure: No service: No Current occupational status: retired Cognitive needs: Yes Hearing needs: No Vision needs: Yes Office Procedures Cardiac Device Check Cardiac Device Check Details: Date of service- 05/27/2024; based on impedance data and physiological variables, there is no evidence of worsening congestive heart failure. [id number] Cardiac Device Interrogation, cardio physiologic monitor Procedure code (CPT) selection complete Assessment & Plan Assessment & Plan (1) ICD (implantable cardioverter-defibrillator) in place: Comment: Medtronic single chamber Code(s): Z95.810 - Presence of automatic (implantable) cardiac defibrillator Category: Medical (2) Ischemic cardiomyopathy: Code(s): I25.5 - Ischemic cardiomyopathy Category: Medical (3) CHF (congestive heart failure): Code(s): I50.9 - Heart failure, unspecified Category: Medical Plan x Coding Level of Care Code Procedure Only Diagnoses ICD (implantable cardioverter-defibrillator) in place Z95.810 Ischemic cardiomyopathy I25.5 CHF (congestive heart failure) I50.9 CPT Codes Cardiac Device Check - Cardiac Device 15: [id number] Cardiac Device Interrogation, cardio physiologic monitor ([id number])
== END ==
PROVIDERS: PCP Internal Medicine; Visit Provider Internal Medicine
DX: I25.5 Ischemic cardiomyopathy (principal); I50.9 Heart failure, unspecified; Z95.810 Presence of automatic (implantable) cardiac defibrillator
CPT/HCPCS: 93297

== ENCOUNTER 2024-06-11 10:01 | Outpatient (AMB) | payer OTHER, SELFPAY ==
--- NOTE | 2024-06-11 10:14 | MHC.PC.OV ---
Vital Signs 06/11/24 10:20 Height 5 ft 7 in Weight 209 lb BMI 32.7 BP 132/80 Blood Pressure Location Lt brachial Position Sitting Intake Visit Reasons: memory is failing him Advertising Internship Required: No Accompanied by: Self / Same As Patient Allergies Penicillins Allergy (Intermediate, Verified 06/11/24 10:31) ITCHING Medication List - Last Reconciled 06/11/24 by Sophie Fulton MD aspirin (Enteric Coated Aspirin) 81 mg PO DAILY blood sugar diagnostic (FreeStyle Lite Strips) As directed 4 times a day blood-glucose meter (FreeStyle Lite Meter kit) As directed blood-glucose meter,continuous (FreeStyle Manjit 3 Wilson) As directed blood-glucose sensor (FreeStyle Manjit 3 Sensor device) As directed cholecalciferol (vitamin D3) 50 mcg PO DAILY 90 days CPAP (CPAP Machine/Device) As directed famotidine 20 mg PO BEDTIME 90 days rauxwtuykla-kunhgqbsl-wsmppers 100-62.5-25 mcg (Trelegy Ellipta) 1 inh inhalation DAILY 28 days furosemide 40 mg PO DAILY 90 days gabapentin 100 mg PO BEDTIME PRN galantamine ER 8 mg PO QAM insulin aspart U-100 (Novolog FlexPen U-100 Insulin aspart) 35 units (0.35 mL) subcut DAILY insulin degludec (Tresiba FlexTouch U-200 insulin) 84 units (0.42 mL) subcut BEDTIME losartan 25 mg PO DAILY 90 days meclizine 12.5 mg PO Q12H PRN 15 days metformin 1,000 mg PO BID 90 days metoprolol succinate ER 100 mg PO DAILY pen needle, diabetic 4 times a day As directed pramipexole 0.5 mg PO DAILY rosuvastatin 40 mg PO DAILY tirzepatide (Mounjaro) 5 mg subcut WE Ventolin HFA 90 mcg/actuation (albuterol sulfate) 2 puffs PO Q6H PRN NS Tobacco use date assessed: 04/21/24 Fall risk assessment: No Falls in past year Last assessed Fall Risk: 06/11/24 Dental Screening Dental Screen Date: 06/11/24 Did you have a dental visit in the last 12 months?: No Did you have a dental problem in the last 6 months where you did not have access to dental care?: No Was dental information given to patient?: Patient has dentist HPI HPI Comments History of Present Illness Details This is a 73-year-old male with diabetes mellitus type 2 on long-term current use of insulin, hypertension, hyperlipidemia and chronic systolic congestive heart failure that comes today accompanied by significant other complaining of some memory loss, confusion and visual hallucinations that his partner has noticed for the past 3-4 weeks. A1c within goal. Blood pressure stable. Lipid panel will be order and his LDL goal should be less than 70. Has congestive heart failure with last echocardiogram done last year showing ejection fraction of 48%. The goal is to not gain 5 lb in a week and he follows with cardiology. No chest pain or shortness on breath. Walks with a cane for gait has an appointment with Neurology in July. Will be referred to psych outpatient due to visual hallucinations. Also has chronic kidney disease stage 3 that has improved and this is follow by Nephrology. 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 Obesity due to excess calories ROE (obstructive sleep apnea) ROE on CPAP Ischemic cardiomyopathy Atherosclerotic cardiovascular disease GERD (gastroesophageal reflux disease) Hypothyroidism Type 2 diabetes mellitus with hyperglycemia, with long-term current use of insulin Type 2 diabetes mellitus with diabetic polyneuropathy Essential hypertension Chronic systolic (congestive) heart failure ICD (implantable cardioverter-defibrillator) in place HTN (hypertension) CAD (coronary artery disease) Hyperlipidemia LDL goal <70 Dyspnea Bibasilar crackles Sleep apnea Insomnia Delusion of persecution Surgical History H/O inguinal hernia repair History of tooth extraction Hx of CABG (~2019) History of open heart surgery History of bilateral cataract extraction Family History Father No problems noted. Mother CVD (cardiovascular disease) Social History Household Members: Spouse Housing: House Do you presently have visiting nurse or other home services: Yes (every 15 days) Alcohol intake: former Patient Tobacco Use Status: Former Tobacco user e-Cigarette/Vaping Use: Never Used Second Hand Smoke Exposure: No service: No Current occupational status: retired Cognitive needs: Yes Hearing needs: No Vision needs: Yes Questionnaire Thrive Questionnaire Date Thrive assessed: 03/08/24 Are you currently unemployed and looking for a job?: I choose not to answer this question RENNY-7 AMB Questionnaire RENNY-7 Date RENNY - 7 assessed: 11/18/23 Source: Developed by Drs. Godwin Street, Luisa Carlin, Lawrence Escamilla and colleagues, with an educational sonia from [employer]. Review of Systems Const All systems reviewed & are unremarkable except as noted in HPI and below Card Denies chest pain at rest, Denies chest pain with activity, Denies edema, Denies irregular heart rhythm, Denies claudication, Denies dyspnea, Denies dyspnea on exertion, Denies orthopnea, Denies paroxysmal nocturnal dyspnea and Denies slow heart rate Resp Denies cough, Denies dyspnea and Denies dyspnea on exertion GI Denies abdominal pain, Denies change in bowel habits, Denies excessive flatus, Denies nausea and Denies vomiting Neuro Reports confusion, Denies lack of coordination and Reports memory loss Psych Reports confusion, Reports memory loss and Reports visual hallucinations Physical exam (Primary Care) Vital Signs: Last Vital Signs BP 132/80 06/11/24 10:20 BMI result Body Mass Index 32.7 BMI Assessment/Plan discussion: High BMI High, discussed plan: lifestyle, weight reduction, dietary and physical activity Tobacco/Smoking Status: Tobacco use Status Tobacco use date assessed 04/21/24 06/11/24 10:19 Patient Tobacco Use Status Former Tobacco user 06/11/24 10:19 e-Cigarette/Vaping Use Never Used 06/11/24 10:19 Thrive Assessment: Date of Thrive Assessment Date Thrive assessed 03/08/24 06/11/24 10:19 Const General: confusion Orientation/consciousness: confusion Limitations: ambulation with cane Resp Effort & Inspection: normal respiratory effort Auscultation: clear to auscultation bilaterally Cardio Jugular venous distension: no JVD Rate: regular rate Rhythm: regular rhythm Heart sounds: S1 normal heart sound present and S2 normal heart sound present Neuro General: confusion Extrem General: Yes full ROM Office Procedures Flu Questionnaire Does the patient have a severe egg allergy?: No Results AMB Urinalysis, Automated UA Leukoctes 0 Primo/uL Last Edit by OREN Escobar on 06/11/24 11:06 UA Nitrite Negative Last Edit by Giacomo Ace, MITCHELLA on 06/11/24 11:06 UA Urobilinogen 0.2 mg/dL Last Edit by OREN Escobar on 06/11/24 11:06 UA Protein 3 mg/dL Last Edit by MITCHELL EscobarA on 06/11/24 11:06 UA pH 6.0 Last Edit by MITCHELL EscobarA on 06/11/24 11:06 UA Blood 1 Junior/uL Last Edit by OREN Escobar on 06/11/24 11:06 UA Specific [place] 1.030 Last Edit by OREN Escobar on 06/11/24 11:06 UA Ketone Negative Last Edit by OREN Escobar on 06/11/24 11:06 UA Bilirubin 0 mg/dL Last Edit by MITCHELL EscobarA on 06/11/24 11:06 UA Glucose 0 mg/dL Last Edit by OREN Escobar on 06/11/24 11:06 Immunizations Fluarix Triv [id number] (PF) 45 mcg (15 mcg x 3)/0.5 mL IM syringe Performing Provider: Sophie Fulton MD [facility] [place] [facility] Documented (not given) by: OREN Escobar on 06/11/24 11:07 Reason Not Given: Received Previously Results Reviewed Results Reviewed: Laboratory Last Values Urine pH (Auto) 6.0 06/11/24 10:51 Specific [place] (Auto) 1.030 06/11/24 10:51 Urine Protein (Auto) 3 mg/dL 06/11/24 10:51 Glucose (UA)(Auto) 0 mg/dL 06/11/24 10:51 Urine Ketones (Auto) Negative 06/11/24 10:51 Urine Blood (Auto) 1 Junior/uL 06/11/24 10:51 Urine Nitrite (Auto) Negative 06/11/24 10:51 Urine Bilirubin (Auto) 0 mg/dL 06/11/24 10:51 Urine Urobilinogen (Auto) 0.2 mg/dL 06/11/24 10:51 Leukocyte Esterase (Auto) 0 Primo/uL 06/11/24 10:51 Coding Level of Care Code Est Pt Level 4 (98484) Complex EM visit Add On G2211 Diagnoses Visual hallucination R44.1 Stage 3b chronic kidney disease N18.32 Chronic kidney disease stage 3 subtype: stage 3b (GFR 30-44) Hyperlipidemia LDL goal <70 E78.5 Essential hypertension I10 Type 2 diabetes mellitus with hyperglycemia, with long-term current use of insulin E11.65; Z79.4 Chronic systolic (congestive) heart failure I50.22 Time Spent (min) 25 Assessment & Plan Assessment & Plan (1) Visual hallucination: Code(s): R44.1 - Visual hallucinations Category: Medical Plan: Referred to psych outpatient. Head CT still pending results. (2) CKD (chronic kidney disease) stage 3, GFR 30-59 ml/min: Code(s): N18.30 - Chronic kidney disease, stage 3 unspecified Category: Medical Qualifiers: Chronic kidney disease stage 3 subtype: stage 3b (GFR 30-44) Qualified Code(s): N18.32 - Chronic kidney disease, stage 3b Plan: Follow-up with nephrology. Avoid NSAIDs. Keep blood pressure less than 130/80. (3) Hyperlipidemia LDL goal <70: Code(s): E78.5 - Hyperlipidemia, unspecified Category: Medical Plan: Continue statins. LDL goal less than 70. (4) Essential hypertension: Code(s): I10 - Essential (primary) hypertension Category: Medical Plan: Continue amlodipine. Blood pressure goal is equal or less than 130/80. (5) Type 2 diabetes mellitus with hyperglycemia, with long-term current use of insulin: Code(s): E11.65 - Type 2 diabetes mellitus with hyperglycemia; Z79.4 - intermediate (current) use of insulin Category: Medical Plan: Continue insulin. A1c goal is equal or less than 7%. (6) Chronic systolic (congestive) heart failure: Code(s): I50.22 - Chronic systolic (congestive) heart failure Category: Medical Plan: Continue diuretics. The goal is to not gain 5 lb in a week. Follow-up with Cardiology. Orders: Orders Thyroid Stimulating Hormone Today R41.3 - Other amnesia Complete Blood Count Auto Diff Today D64.9 - Anemia, unspecified Lipid Panel Today E78.5 - Hyperlipidemia, unspecified Syphilis Screen Today R41.3 - Other amnesia Vitamin D 25-OH Total Today E55.9 - Vitamin D deficiency, unspecified Vitamin B12 and Folate Today E53.8 - Deficiency of other specified B group vitamins IRON PROFILE Today D64.9 - Anemia, unspecified Comprehensive [place]. Panel Fast Today R41.3 - Other amnesia AMB Urinalysis Automated Today R25.1 - Tremor, unspecified, R30.0 - Dysuria Influenza [id number] Immunization Today Z23 - Encounter for immunization Referrals Psychiatry Outpatient Consultation Service R44.1 - Visual hallucinations Medications: New amlodipine 5 mg PO DAILY 90 days 90 tabs 1RF Refilled meclizine 12.5 mg PO Q12H 15 days PRN 30 tabs 0RF for dizziness
[2024-06-11 10:20] VITALS: BP 132/80; BMI 32.7
== END 2024-06-11 11:51 | disposition home or self-care (01) ==
LOC: HO.HMCH 10:02
PROVIDERS: PCP Internal Medicine; Visit Provider Internal Medicine
DX: I12.9 Hypertensive chronic kidney disease with stage 1 through stage 4 chronic kidney disease, or unspecified chronic kidney disease (principal); N18.32 Chronic kidney disease, stage 3b; E11.65 Type 2 diabetes mellitus with hyperglycemia; Z79.4 Long term (current) use of insulin; I50.22 Chronic systolic (congestive) heart failure; R44.1 Visual hallucinations; E78.5 Hyperlipidemia, unspecified; R25.1 Tremor, unspecified; R30.0 Dysuria

== ENCOUNTER → 2024-06-11 10:01 | Outpatient (BNVA) | payer OTHER, SELFPAY | PROVIDERS: PCP Internal Medicine; Visit Provider Internal Medicine | DX: R44.1 Visual hallucinations (principal); I13.0 Hypertensive heart and chronic kidney disease with heart failure and stage 1 through stage 4 chronic kidney disease, or unspecified chronic kidney disease; E11.22 Type 2 diabetes mellitus with diabetic chronic kidney disease; N18.32 Chronic kidney disease, stage 3b; I50.22 Chronic systolic (congestive) heart failure; E78.5 Hyperlipidemia, unspecified; E11.65 Type 2 diabetes mellitus with hyperglycemia; Z79.4 Long term (current) use of insulin | CPT/HCPCS: 81003; 90471; 99212 ==

== ENCOUNTER 2024-06-22 15:44 | Outpatient (AMB) | payer OTHER, SELFPAY ==
--- NOTE | 2024-06-22 16:16 | A.OFFVIS_ITS ---
Intake Intake Visit Reasons: 60 min-confirmed Supervisory Air Intercept Controller Required: Yes Supervisory Air Intercept Controller Language: Pharmacy Informaticist Name: Consuelo [id number] Information Interpreted: non-clinical & clinical Accompanied by: Self / Same As Patient Allergies Penicillins Allergy (Intermediate, Verified 06/11/24 10:31) ITCHING HPI Comprehensive Diabetes Asmnt Most Recent Diabetes Results: Hemoglobin A1c 8.2 % 08/14/19 Microalb/Creat Ratio 932.9 ug/mg cr (<30) H 03/25/24 Cholesterol 133 mg/dL (<200) 03/25/24 HDL Cholesterol 44 mg/dL (>40) 03/25/24 Triglycerides 120 mg/dL (<150) 03/25/24 Creatinine 1.38 mg/dL (0.5-1.4) 05/12/24 Blood Urea Nitrogen 27 mg/dL (9-16) H 05/12/24 Sodium 138 mmol/L (135-145) 05/12/24 Potassium 4.6 mmol/L (3.3-5.1) 05/12/24 Chloride 104 mmol/L (96-108) 05/12/24 Carbon Dioxide 28 mmol/L (22-29) 05/12/24 Calcium 8.9 mg/dL (8.4-10.2) 05/12/24 AST 32 U/L (5-37) 03/25/24 ALT 38 U/L (0-40) 03/25/24 Total Protein 6.5 g/dL (6.5-8.0) 03/25/24 Albumin 3.5 g/dL (3.5-5.0) 03/25/24 [facility] Medical History CHF (congestive heart failure) Type 2 diabetes mellitus Chronic heart failure with preserved ejection fraction (HFpEF) Cardiomyopathy Hypoglycemia due to type 2 diabetes mellitus Acute on chronic systolic (congestive) heart failure Defibrillator discharge Hospital discharge follow-up ROE (obstructive sleep apnea) Hypothyroidism Reactive airway disease [id number] syndrome Obesity due to excess calories ROE (obstructive sleep apnea) ROE on CPAP Ischemic cardiomyopathy Atherosclerotic cardiovascular disease GERD (gastroesophageal reflux disease) Hypothyroidism Type 2 diabetes mellitus with hyperglycemia, with long-term current use of insulin Type 2 diabetes mellitus with diabetic polyneuropathy Essential hypertension Chronic systolic (congestive) heart failure ICD (implantable cardioverter-defibrillator) in place HTN (hypertension) CAD (coronary artery disease) Hyperlipidemia LDL goal <70 Dyspnea Bibasilar crackles Sleep apnea Insomnia Delusion of persecution Surgical History H/O inguinal hernia repair History of tooth extraction Hx of CABG (~2019) History of open heart surgery History of bilateral cataract extraction Family History Father No problems noted. Mother CVD (cardiovascular disease) Social History Household Members: Spouse Housing: House Do you presently have visiting nurse or other home services: Yes (every 15 days) Alcohol intake: former Patient Tobacco Use Status: Former Tobacco user e-Cigarette/Vaping Use: Never Used Second Hand Smoke Exposure: No service: No Current occupational status: retired Cognitive needs: Yes Hearing needs: No Vision needs: Yes Assessment & Plan Assessment & Plan (1) Type 2 diabetes mellitus with hyperglycemia, with long-term current use of insulin: Code(s): E11.65 - Type 2 diabetes mellitus with hyperglycemia; Z79.4 - nursing home (current) use of insulin Plan: Personal Continuous Glucose Monitor: Patients CGM information reviewed, Pt uses Manjit 3 Sensor with [place] Sensor data: Hypoglycemia: ? 1% Hyperglycemia:? 78% Time in Range:? 21% Average glucose for the last 2 weeks 261? mg/dL Patient has not started NovoLog as instructed at last MD appointment. Patient is still taking Tresiba U 200 84 units daily Mounjaro 5 mg weekly Message sent to Dr. Medardo Hannon, asking for her to clarify at patient's next visit on 06/24/2024 what he should be taking for his insulin. Also suggested to provider to reduce Tresiba dose since patient has sharp downward trend overnight. Reminded patient that to check finger sticks if symptoms do not match sensor reading. Discussed lag time between finger stick and sensor data.? Patient able to insert sensor independently at home without issue.? Portions of this note were created using voice recognition software, please excuse any words or phrases that may have been misinterpreted. Coding Level of Care Code Est Pt Level 1 (83573) Diagnoses Type 2 diabetes mellitus with hyperglycemia, with long-term current use of insulin E11.65; Z79.4
== END 2024-06-22 16:30 | disposition home or self-care (01) ==
PROVIDERS: PCP Internal Medicine; Visit Provider Registered Nurse Diabetes Educator
DX: E11.65 Type 2 diabetes mellitus with hyperglycemia (principal); Z79.4 Long term (current) use of insulin

== ENCOUNTER → 2024-06-22 15:44 | Outpatient (BNVA) | payer OTHER, SELFPAY | PROVIDERS: PCP Internal Medicine; Visit Provider Registered Nurse Diabetes Educator | DX: E11.65 Type 2 diabetes mellitus with hyperglycemia (principal); Z79.4 Long term (current) use of insulin | CPT/HCPCS: 99211 ==

== ENCOUNTER 2024-06-24 14:54 | Outpatient (AMB) | payer OTHER, SELFPAY ==
--- NOTE | 2024-06-24 14:56 | A.OFFVIS_ITS ---
Vital Signs 06/24/24 14:57 Height 5 ft 7 in Weight 207 lb 3.752 oz BMI 32.5 BP 124/70 Blood Pressure Location Rt brachial Position Sitting Pulse 74 Pulse Source Pulse Oximeter Intake Visit Reasons: T2DM Intake Note: Patient presents today for a follow-up on Type 2 Diabetes Mellitus: Last Diabetic Eye Exam: 12/2023 Last Podiatry Exam- Does not see a Gas Pump Attendant Most recent HbA1c- 10.4%, 05/20/2024 Random Glucose- 117 mg/dL, Today Hot Stick Worker Required: Yes Hot Stick Worker Language: Contact Lens Cutter Services: Hot Stick Worker Present (via video call) Hot Stick Worker Name: OREN Whittaker/ALEX ORNELAS Information Interpreted: non-clinical & clinical Accompanied by: Self / Same As Patient Allergies Penicillins Allergy (Intermediate, Verified 06/24/24 14:56) ITCHING HPI Comments Details: 73 year old male who is seen in f/u for T2DM Initially diagnosed with T2DM approx 30 years ago. On insulin last six years. Current regimen: Tresiba 84units taking 83 units. Reports compliance metformin 1000mg bid Mounjaro 5mg weekly Novolog -not taking. As we recall was previously only taking short acting and missing majority of long acting doses. His previous doses were breakfast 35 units lunch 40 units supper 45 units A1C 10.4% from 11.9% Manjit downloaded today GMI 9.7%, high 78%, TGT 20%, 2% lows-all overnight/early am. Hyperglycemia throughout the day Eats lunch and dinner. Not eating breakfast. Dinner around 6. At last visit treated for cellulitis of the left lower extremity. It has resolved ROS CONSTITUTIONAL: Denies weight loss, fever and chills. HEENT: Denies changes in vision and hearing. RESPIRATORY: Denies SOB and cough. CV: Denies palpitations and CP GI: Denies abdominal pain, nausea, vomiting and diarrhea. : Denies dysuria and urinary frequency. MSK: Denies new myalgia and joint pain. SKIN: Denies rash and pruritus. NEUROLOGICAL: vertigo PSYCHIATRIC: Denies recent changes in mood. PHYSICAL EXAM: GENERAL: Alert and oriented x 3. NAD EYES: EOMI. Anicteric. HENT: Moist mucous membranes. No scleral icterus. LUNGS: Clear to auscultation bilaterally. CARDIOVASCULAR: Regular rate and rhythm. ABDOMEN: Soft, non-tender +bs EXTREMITIES: No edema. Non-tender. SKIN: Warmth, redness and swelling of left lower extremity. No purulence NEUROLOGIC: No focal neurological deficits. CN II-XII grossly intact PSYCHIATRIC: Cooperative. [facility] Medical History (Updated 06/24/24 @ 15:33 by Daisy Meraz MD) Hypoglycemia due to type 2 diabetes mellitus CHF (congestive heart failure) Type 2 diabetes mellitus Chronic heart failure with preserved ejection fraction (HFpEF) Cardiomyopathy Acute on chronic systolic (congestive) heart failure Defibrillator discharge Hospital discharge follow-up ROE (obstructive sleep apnea) Hypothyroidism Reactive airway disease [id number] syndrome Obesity due to excess calories ROE (obstructive sleep apnea) ROE on CPAP Ischemic cardiomyopathy Atherosclerotic cardiovascular disease GERD (gastroesophageal reflux disease) Hypothyroidism Type 2 diabetes mellitus with hyperglycemia, with long-term current use of insulin Type 2 diabetes mellitus with diabetic polyneuropathy Essential hypertension Chronic systolic (congestive) heart failure ICD (implantable cardioverter-defibrillator) in place HTN (hypertension) CAD (coronary artery disease) Hyperlipidemia LDL goal <70 Dyspnea Bibasilar crackles Sleep apnea Insomnia Delusion of persecution Surgical History H/O inguinal hernia repair History of tooth extraction Hx of CABG (~2019) History of open heart surgery History of bilateral cataract extraction Family History Father No problems noted. Mother CVD (cardiovascular disease) Social History Household Members: Spouse Housing: House Do you presently have visiting nurse or other home services: Yes (every 15 days) Alcohol intake: former Patient Tobacco Use Status: Former Tobacco user e-Cigarette/Vaping Use: Never Used Second Hand Smoke Exposure: No service: No Current occupational status: retired Cognitive needs: Yes Hearing needs: No Vision needs: Yes Physical Exam Vital Signs: BMI result Body Mass Index 32.5 Assessment & Plan Assessment & Plan (1) Type 2 diabetes mellitus: Code(s): E11.9 - Type 2 diabetes mellitus without complications Category: Medical Qualifiers: Diabetes mellitus complication status: with hyperglycemia Diabetes mellitus halfway insulin use: with halfway use Qualified Code(s): E11.65 - Type 2 diabetes mellitus with hyperglycemia; Z79.4 - roasterman (current) use of insulin Plan: Overall improving A1C but recurrence of overnight hypoglycemia and currently only on long acting insulin He will decrease this to 74 units from 84 units. Have advised him to cut back further if continues to have hypoglycemia Advised him to restart short acting insulin with lunch ONLY at 20 units Return in one month or sooner as needed (2) Hypoglycemia due to type 2 diabetes mellitus: Code(s): E11.649 - Type 2 diabetes mellitus with hypoglycemia without coma Category: Medical Plan: see above Orders: Orders PT Evaluation and Treatment Today R42 - Dizziness and giddiness Medications: Changed From insulin degludec (Tresiba FlexTouch U-200 insulin) 84 units (0.42 mL) subcut BEDTIME 18 mL 3RF To insulin degludec (Tresiba FlexTouch U-200 insulin) 74 units (0.37 mL) subcut BEDTIME 18 mL 3RF From insulin aspart U-100 (Novolog FlexPen U-100 Insulin aspart) with dinner 35 units (0.35 mL) subcut DAILY 15 mL 3RF To insulin aspart U-100 (Novolog FlexPen U-100 Insulin aspart) with LUNCH 20 units (0.2 mL) subcut DAILY 15 mL 3RF Coding Level of Care Code Est Pt Level 4 (11527) Diagnoses Type 2 diabetes mellitus with hyperglycemia, with long-term current use of insulin E11.65; Z79.4 Diabetes mellitus complication status: with hyperglycemia Diabetes mellitus halfway insulin use: with moth exterminator use Hypoglycemia due to type 2 diabetes mellitus E11.649
[2024-06-24 14:57] VITALS: BP 124/70; PULSE 74; BMI 32.5
[2024-06-24 15:09] LABS: Glucose, Whole Blood 117 mg/dL (60-115)
== END 2024-06-24 15:23 | disposition home or self-care (01) ==
PROVIDERS: PCP Internal Medicine; Visit Provider Internal Medicine
DX: E11.65 Type 2 diabetes mellitus with hyperglycemia (principal); Z79.4 Long term (current) use of insulin; E11.649 Type 2 diabetes mellitus with hypoglycemia without coma

== ENCOUNTER → 2024-06-24 14:54 | Outpatient (BNVA) | payer OTHER, SELFPAY | PROVIDERS: PCP Internal Medicine; Visit Provider Internal Medicine | DX: E11.65 Type 2 diabetes mellitus with hyperglycemia (principal); E11.649 Type 2 diabetes mellitus with hypoglycemia without coma; Z79.4 Long term (current) use of insulin; Z79.84 Long term (current) use of oral hypoglycemic drugs | CPT/HCPCS: 82947; 99212 ==

== ENCOUNTER → 2024-06-27 23:59 | Outpatient (BNV) | payer OTHER, SELFPAY ==
--- NOTE | 2024-07-14 12:59 | MHC.OFFVIS ---
Intake Visit Reasons: Remote HF monitoring- Medtronic Allergies Penicillins Allergy (Intermediate, Verified 06/24/24 14:56) ITCHING [facility] Medical History (Updated 06/24/24 @ 15:33 by Daisy Meraz MD) Hypoglycemia due to type 2 diabetes mellitus CHF (congestive heart failure) Type 2 diabetes mellitus Chronic heart failure with preserved ejection fraction (HFpEF) Cardiomyopathy Acute on chronic systolic (congestive) heart failure Defibrillator discharge Hospital discharge follow-up ROE (obstructive sleep apnea) Hypothyroidism Reactive airway disease [id number] syndrome Obesity due to excess calories ROE (obstructive sleep apnea) ROE on CPAP Ischemic cardiomyopathy Atherosclerotic cardiovascular disease GERD (gastroesophageal reflux disease) Hypothyroidism Type 2 diabetes mellitus with hyperglycemia, with long-term current use of insulin Type 2 diabetes mellitus with diabetic polyneuropathy Essential hypertension Chronic systolic (congestive) heart failure ICD (implantable cardioverter-defibrillator) in place HTN (hypertension) CAD (coronary artery disease) Hyperlipidemia LDL goal <70 Dyspnea Bibasilar crackles Sleep apnea Insomnia Delusion of persecution Surgical History H/O inguinal hernia repair History of tooth extraction Hx of CABG (~2019) History of open heart surgery History of bilateral cataract extraction Family History Father No problems noted. Mother CVD (cardiovascular disease) Social History Household Members: Spouse Housing: House Do you presently have visiting nurse or other home services: Yes (every 15 days) Alcohol intake: former Patient Tobacco Use Status: Former Tobacco user e-Cigarette/Vaping Use: Never Used Second Hand Smoke Exposure: No service: No Current occupational status: retired Cognitive needs: Yes Hearing needs: No Vision needs: Yes Office Procedures Cardiac Device Check Cardiac Device Check Details: Date of service- 06/27/2024; based on impedance data and physiological variables, there is possible optivol fluid accumulation from May to Jun. Patient activity <1 hr/day. [id number] Cardiac Device Interrogation, cardio physiologic monitor Procedure code (CPT) selection complete Assessment & Plan Assessment & Plan (1) ICD (implantable cardioverter-defibrillator) in place: Comment: Medtronic single chamber Code(s): Z95.810 - Presence of automatic (implantable) cardiac defibrillator Category: Medical (2) Ischemic cardiomyopathy: Code(s): I25.5 - Ischemic cardiomyopathy Category: Medical Plan x Coding Level of Care Code Procedure Only Diagnoses ICD (implantable cardioverter-defibrillator) in place Z95.810 Ischemic cardiomyopathy I25.5 CPT Codes Cardiac Device Check - Cardiac Device 15: [id number] Cardiac Device Interrogation, cardio physiologic monitor ([id number])
== END ==
PROVIDERS: PCP Internal Medicine; Visit Provider Internal Medicine
DX: I25.5 Ischemic cardiomyopathy (principal); Z95.810 Presence of automatic (implantable) cardiac defibrillator
CPT/HCPCS: 93297

== ENCOUNTER 2024-07-22 15:15 | Outpatient (AMB) | payer OTHER, SELFPAY ==
--- NOTE | 2024-07-22 15:32 | MHC.AMDMED ---
Intake Intake Visit Reasons: 60 min Equipment Operator Required: Yes Equipment Operator Language: Weigher And Mixer Name: Sonu [facility] [place] Accompanied by: Self / Same As Patient Allergies Penicillins Allergy (Intermediate, Verified 06/24/24 14:56) ITCHING HPI Comprehensive Diabetes Asmnt Most Recent Diabetes Results: Hemoglobin A1c 8.2 % 08/14/19 Microalb/Creat Ratio 932.9 ug/mg cr (<30) H 03/25/24 Cholesterol 133 mg/dL (<200) 03/25/24 HDL Cholesterol 44 mg/dL (>40) 03/25/24 Triglycerides 120 mg/dL (<150) 03/25/24 Creatinine 1.38 mg/dL (0.5-1.4) 05/12/24 Blood Urea Nitrogen 27 mg/dL (9-16) H 05/12/24 Sodium 138 mmol/L (135-145) 05/12/24 Potassium 4.6 mmol/L (3.3-5.1) 05/12/24 Chloride 104 mmol/L (96-108) 05/12/24 Carbon Dioxide 28 mmol/L (22-29) 05/12/24 Calcium 8.9 mg/dL (8.4-10.2) 05/12/24 AST 32 U/L (5-37) 03/25/24 ALT 38 U/L (0-40) 03/25/24 Total Protein 6.5 g/dL (6.5-8.0) 03/25/24 Albumin 3.5 g/dL (3.5-5.0) 03/25/24 [facility] Medical History (Updated 06/24/24 @ 15:33 by Daisy Meraz MD) Hypoglycemia due to type 2 diabetes mellitus CHF (congestive heart failure) Type 2 diabetes mellitus Chronic heart failure with preserved ejection fraction (HFpEF) Cardiomyopathy Acute on chronic systolic (congestive) heart failure Defibrillator discharge Hospital discharge follow-up ROE (obstructive sleep apnea) Hypothyroidism Reactive airway disease [id number] syndrome Obesity due to excess calories ROE (obstructive sleep apnea) ROE on CPAP Ischemic cardiomyopathy Atherosclerotic cardiovascular disease GERD (gastroesophageal reflux disease) Hypothyroidism Type 2 diabetes mellitus with hyperglycemia, with long-term current use of insulin Type 2 diabetes mellitus with diabetic polyneuropathy Essential hypertension Chronic systolic (congestive) heart failure ICD (implantable cardioverter-defibrillator) in place HTN (hypertension) CAD (coronary artery disease) Hyperlipidemia LDL goal <70 Dyspnea Bibasilar crackles Sleep apnea Insomnia Delusion of persecution Surgical History H/O inguinal hernia repair History of tooth extraction Hx of CABG (~2019) History of open heart surgery History of bilateral cataract extraction Family History Father No problems noted. Mother CVD (cardiovascular disease) Social History Household Members: Spouse Housing: House Do you presently have visiting nurse or other home services: Yes (every 15 days) Alcohol intake: former Patient Tobacco Use Status: Former Tobacco user e-Cigarette/Vaping Use: Never Used Second Hand Smoke Exposure: No service: No Current occupational status: retired Cognitive needs: Yes Hearing needs: No Vision needs: Yes Assessment & Plan Assessment & Plan (1) Type 2 diabetes mellitus with hyperglycemia, with long-term current use of insulin: Code(s): E11.65 - Type 2 diabetes mellitus with hyperglycemia; Z79.4 - intermission coordinator (current) use of insulin Plan: Personal Continuous Glucose Monitor: Patients CGM information reviewed, Pt uses Sensor data: Hypoglycemia: ? 1% Hyperglycemia:? 65% Time in Range:? 34% Average glucose for the last 2 weeks?233 mg/dL Patient continues to have downward trend overnight, with several episodes of overnight and morning hypoglycemia At last visit with Dr. Medardo Hannon patient's Tresiba was reduced to 74 units daily, which patient reports he is taking Dr. Hannon documented the patient should be taking NovoLog 20 units with lunch only, patient reports he is taking NovoLog 30 units before breakfast 40 units before lunch, and 30 units before supper, and 15 units before bed. Will send a note to Dr. Hannon to clarify patient's insulin plan with patient at his appointment on 07/23/2024. Instructed patient not to take NovoLog 15 units before bed tonight, to reduce Tresiba to 64 units tonight Reviewed with patient how to treat hypoglycemia with rule of 15s, Greek handout given Message will be sent to Dr. Hannon to clarify insulin plan Patient able to insert sensor independently at home without issue.? Portions of this note were created using voice recognition software, please excuse any words or phrases that may have been misinterpreted. Patient Instructions: Reducir Tresiba 64 unidades diarias Seguimiento con la enfermera de Educaci?n sobre Diabetes seg?n las instrucciones Coding Level of Care Code Est Pt Level 1 (99415) Diagnoses Type 2 diabetes mellitus with hyperglycemia, with long-term current use of insulin E11.65; Z79.4
== END 2024-07-22 16:12 | disposition home or self-care (01) ==
PROVIDERS: PCP Internal Medicine; Visit Provider Registered Nurse Diabetes Educator
DX: E11.65 Type 2 diabetes mellitus with hyperglycemia (principal); Z79.4 Long term (current) use of insulin

== ENCOUNTER → 2024-07-22 15:15 | Outpatient (BNVA) | payer OTHER, SELFPAY | PROVIDERS: PCP Internal Medicine; Visit Provider Registered Nurse Diabetes Educator | DX: E11.65 Type 2 diabetes mellitus with hyperglycemia (principal); Z79.4 Long term (current) use of insulin | CPT/HCPCS: 99211 ==

== ENCOUNTER 2024-07-23 14:52 | Outpatient (AMB) | payer OTHER, SELFPAY ==
--- NOTE | 2024-07-23 14:53 | A.OFFVIS_ITS ---
Vital Signs 07/23/24 14:54 Height 5 ft 7 in Weight 205 lb 0.478 oz BMI 32.1 BP 122/76 Blood Pressure Location Rt brachial Position Sitting Pulse 85 Pulse Source Pulse Oximeter Intake Visit Reasons: DM follow up med changes hypoglycemia Intake Note: Patient presents today for a follow-up on Type 2 Diabetes Mellitus: Last Diabetic Eye Exam: 12/2023 Last Podiatry Exam- Does not see a Biotech Production Specialist Most recent HbA1c- 10.4%, 05/20/2024 Random Glucose- 156 mg/dL, Today Camera Repairman Required: Yes Camera Repairman Language: Supervisor Production Department Services: Camera Repairman Present (via video call) Camera Repairman Name: OREN Whittaker/ALEX ORNELAS Information Interpreted: non-clinical & clinical Accompanied by: Self / Same As Patient Allergies Penicillins Allergy (Intermediate, Verified 07/23/24 14:54) ITCHING Medication List - Last Reconciled 07/23/24 by Godwin Cervantes MD amlodipine 5 mg PO DAILY 90 days aspirin (Enteric Coated Aspirin) 81 mg PO DAILY blood sugar diagnostic (FreeStyle Lite Strips) As directed 4 times a day blood-glucose meter (FreeStyle Lite Meter kit) As directed blood-glucose meter,continuous (FreeStyle Manjit 3 [place]) As directed blood-glucose sensor (FreeStyle Manijt 3 Sensor device) As directed cholecalciferol (vitamin D3) 50 mcg PO DAILY 90 days CPAP (CPAP Machine/Device) As directed famotidine 20 mg PO BEDTIME 90 days jcpflijgbkr-dzeeylivm-jrnnkert 100-62.5-25 mcg (Trelegy Ellipta) 1 inh inhalation DAILY 28 days furosemide 40 mg PO DAILY 90 days galantamine ER 8 mg PO QAM insulin aspart U-100 (Novolog FlexPen U-100 Insulin aspart) 20 units (0.2 mL) subcut DAILY insulin degludec (Tresiba FlexTouch U-200 insulin) 74 units (0.37 mL) subcut BEDTIME losartan 25 mg PO DAILY 90 days meclizine 12.5 mg PO Q12H PRN 15 days metformin 1,000 mg PO BID 90 days metoprolol succinate ER 100 mg PO DAILY pen needle, diabetic 4 times a day As directed pramipexole 0.5 mg PO DAILY rosuvastatin 40 mg PO DAILY tirzepatide (Mounjaro) 5 mg subcut WE Ventolin HFA 90 mcg/actuation (albuterol sulfate) 2 puffs PO Q6H PRN NS HPI Comments Details: 73 year old male who is seen in f/u for T2DM. Patient last saw Dr. Hannon 06/24/2024 Initially diagnosed with T2DM approx 30 years ago. On insulin last six years. Current regimen: Tresiba 63units . Reports compliance just reduced by CDE metformin 1000mg bid Mounjaro 5mg weekly Novolog - breakfast 35 units lunch 40 units supper 45 units Manjit downloaded today GMI 8.9%, high 67%, TGT 32%, 1% lows-all overnight/early am. Hyperglycemia throughout the day with point of care rising after breakfast Eats lunch and dinner. Not eating breakfast. Dinner around 6. Saw optho this yr Hypoglycemia as above PFSH Medical History Hypoglycemia due to type 2 diabetes mellitus CHF (congestive heart failure) Type 2 diabetes mellitus Chronic heart failure with preserved ejection fraction (HFpEF) Cardiomyopathy Acute on chronic systolic (congestive) heart failure Defibrillator discharge Hospital discharge follow-up ROE (obstructive sleep apnea) Hypothyroidism Reactive airway disease [id number] syndrome Obesity due to excess calories ROE (obstructive sleep apnea) ROE on CPAP Ischemic cardiomyopathy Atherosclerotic cardiovascular disease GERD (gastroesophageal reflux disease) Hypothyroidism Type 2 diabetes mellitus with hyperglycemia, with long-term current use of insulin Type 2 diabetes mellitus with diabetic polyneuropathy Essential hypertension Chronic systolic (congestive) heart failure ICD (implantable cardioverter-defibrillator) in place HTN (hypertension) CAD (coronary artery disease) Hyperlipidemia LDL goal <70 Dyspnea Bibasilar crackles Sleep apnea Insomnia Delusion of persecution Surgical History H/O inguinal hernia repair History of tooth extraction Hx of CABG (~2019) History of open heart surgery History of bilateral cataract extraction Family History Father No problems noted. Mother CVD (cardiovascular disease) Social History Household Members: Spouse Housing: House Do you presently have visiting nurse or other home services: Yes (every 15 days) Alcohol intake: former Patient Tobacco Use Status: Former Tobacco user e-Cigarette/Vaping Use: Never Used Second Hand Smoke Exposure: No service: No Current occupational status: retired Cognitive needs: Yes Hearing needs: No Vision needs: Yes Physical Exam Absence of Cushingoid features. Absence of acromegalic features. Neck exam reveals nl size thyroid about 15 gms. No thyroid nodules palpable. No carotid bruits present. Lungs CTA. Heart S1 S2, Reg R/R. No M/R/ G. Skin exam reveals absence of vitiligo or acanthosis nigricans. Abdominal exam reveals Soft NT/ND with NA BS. No organomegaly present. Neck Other: . Extrem Other: Visual exam of foot performed. No ulcerations or open lesions. No onchomycosis, no callouses.Pulses 2 + distally Sensation intact to monofilament exam. Vibratory sensation sensed is intact with 128 Hz tuning fork Assessment & Plan Assessment & Plan (1) Type 2 diabetes mellitus with hyperglycemia, with long-term current use of insulin: Code(s): E11.65 - Type 2 diabetes mellitus with hyperglycemia; Z79.4 - MCC (current) use of insulin Category: Medical Plan: This is a 74-year-old male with a history of type 2 diabetes being treated with Mounjaro, metformin and basal insulin with poor glycemic control and known macrovascular and mcg complications namely CAD on microalbuminuria Plan is to decrease Tresiba to 20 units and use SS Novolog premeals 80-150 20 units and increase by 4 units for 50 unit crements. Increase Mounjaro to 7.5 mg q Wkly . Follow-up with Sera Ramírez NP in 3 wks v Medications: New tirzepatide (Mounjaro) 7.5 mg (0.5 mL) subcut QWEEK 2 mL 3RF Coding Level of Care Code Est Pt Level 4 (20951) Complex EM visit Add On G2211 Diagnoses Type 2 diabetes mellitus with hyperglycemia, with long-term current use of insulin E11.65; Z79.4
[2024-07-23 14:54] VITALS: BP 122/76; PULSE 85; BMI 32.1
[2024-07-23 15:38] LABS: Glucose, Whole Blood 156 mg/dL (60-115)
== END 2024-07-23 15:19 | disposition home or self-care (01) ==
PROVIDERS: PCP Internal Medicine; Visit Provider Internal Medicine Endocrinology, Diabetes & Metabolism
DX: E11.65 Type 2 diabetes mellitus with hyperglycemia (principal); Z79.4 Long term (current) use of insulin
CPT/HCPCS: 99214; G2211

== ENCOUNTER → 2024-07-23 14:52 | Outpatient (BNVA) | payer OTHER, SELFPAY | PROVIDERS: PCP Internal Medicine; Visit Provider Internal Medicine Endocrinology, Diabetes & Metabolism | DX: E11.65 Type 2 diabetes mellitus with hyperglycemia (principal); E16.2 Hypoglycemia, unspecified; Z79.4 Long term (current) use of insulin | CPT/HCPCS: 82947; 99212 ==

== ENCOUNTER → 2024-07-28 23:59 | Outpatient (BNV) | payer OTHER, SELFPAY ==
--- NOTE | 2024-08-08 12:25 | MHC.OFFVIS ---
Intake Visit Reasons: Remote ICD check- Medtronic Allergies Penicillins Allergy (Intermediate, Verified 08/04/24 14:46) ITCHING [facility] Medical History (Updated 08/04/24 @ 15:28 by Lindsay Barnes MD) Hallucinations Hypoglycemia due to type 2 diabetes mellitus CHF (congestive heart failure) Type 2 diabetes mellitus Chronic heart failure with preserved ejection fraction (HFpEF) Cardiomyopathy Acute on chronic systolic (congestive) heart failure Defibrillator discharge Hospital discharge follow-up ROE (obstructive sleep apnea) Hypothyroidism Reactive airway disease [id number] syndrome Obesity due to excess calories ROE (obstructive sleep apnea) ROE on CPAP Ischemic cardiomyopathy Atherosclerotic cardiovascular disease GERD (gastroesophageal reflux disease) Hypothyroidism Type 2 diabetes mellitus with hyperglycemia, with long-term current use of insulin Type 2 diabetes mellitus with diabetic polyneuropathy Essential hypertension Chronic systolic (congestive) heart failure ICD (implantable cardioverter-defibrillator) in place HTN (hypertension) CAD (coronary artery disease) Hyperlipidemia LDL goal <70 Dyspnea Bibasilar crackles Sleep apnea Insomnia Delusion of persecution Surgical History H/O inguinal hernia repair History of tooth extraction Hx of CABG (~2019) History of open heart surgery History of bilateral cataract extraction Family History Father No problems noted. Mother CVD (cardiovascular disease) Social History Household Members: Spouse Housing: House Do you presently have visiting nurse or other home services: Yes (every 15 days) Alcohol intake: former Patient Tobacco Use Status: Former Tobacco user e-Cigarette/Vaping Use: Never Used Second Hand Smoke Exposure: No service: No Current occupational status: retired Cognitive needs: Yes Hearing needs: No Vision needs: Yes Office Procedures Cardiac Device Check Cardiac Device Check Details: Date of service 07/28/2024; Battery life >6 years; normal lead parameters; no treated VT/VF; normal ICD function. [id number] Cardiac Interrogation, implant defibrillator w/interim Procedure code (CPT) selection complete Assessment & Plan Assessment & Plan (1) ICD (implantable cardioverter-defibrillator) in place: Comment: Medtronic single chamber Code(s): Z95.810 - Presence of automatic (implantable) cardiac defibrillator Category: Medical (2) Ischemic cardiomyopathy: Code(s): I25.5 - Ischemic cardiomyopathy Category: Medical (3) CHF (congestive heart failure): Code(s): I50.9 - Heart failure, unspecified Category: Medical Plan x Coding Level of Care Code Procedure Only Diagnoses ICD (implantable cardioverter-defibrillator) in place Z95.810 Ischemic cardiomyopathy I25.5 CHF (congestive heart failure) I50.9 CPT Codes Cardiac Device Check - Cardiac Device 13: [id number] Cardiac Interrogation, implant defibrillator w/interim ([id number])
== END ==
PROVIDERS: PCP Internal Medicine; Visit Provider Internal Medicine
DX: I25.5 Ischemic cardiomyopathy (principal); I50.9 Heart failure, unspecified; Z95.810 Presence of automatic (implantable) cardiac defibrillator
CPT/HCPCS: 93295

== ENCOUNTER → 2024-07-28 23:59 | Outpatient (BNV) | payer OTHER, SELFPAY ==
--- NOTE | 2024-08-08 12:23 | MHC.OFFVIS ---
Intake Visit Reasons: Remote HF monitoring- Medtronic Allergies Penicillins Allergy (Intermediate, Verified 08/04/24 14:46) ITCHING [facility] Medical History (Updated 08/04/24 @ 15:28 by Lindsay Barnes MD) Hallucinations Hypoglycemia due to type 2 diabetes mellitus CHF (congestive heart failure) Type 2 diabetes mellitus Chronic heart failure with preserved ejection fraction (HFpEF) Cardiomyopathy Acute on chronic systolic (congestive) heart failure Defibrillator discharge Hospital discharge follow-up ROE (obstructive sleep apnea) Hypothyroidism Reactive airway disease Gsri-[id number]-43 syndrome Obesity due to excess calories ROE (obstructive sleep apnea) ROE on CPAP Ischemic cardiomyopathy Atherosclerotic cardiovascular disease GERD (gastroesophageal reflux disease) Hypothyroidism Type 2 diabetes mellitus with hyperglycemia, with long-term current use of insulin Type 2 diabetes mellitus with diabetic polyneuropathy Essential hypertension Chronic systolic (congestive) heart failure ICD (implantable cardioverter-defibrillator) in place HTN (hypertension) CAD (coronary artery disease) Hyperlipidemia LDL goal <70 Dyspnea Bibasilar crackles Sleep apnea Insomnia Delusion of persecution Surgical History H/O inguinal hernia repair History of tooth extraction Hx of CABG (~2019) History of open heart surgery History of bilateral cataract extraction Family History Father No problems noted. Mother CVD (cardiovascular disease) Social History Household Members: Spouse Housing: House Do you presently have visiting nurse or other home services: Yes (every 15 days) Alcohol intake: former Patient Tobacco Use Status: Former Tobacco user e-Cigarette/Vaping Use: Never Used Second Hand Smoke Exposure: No service: No Current occupational status: retired Cognitive needs: Yes Hearing needs: No Vision needs: Yes Office Procedures Cardiac Device Check Cardiac Device Check Details: Date of service- 07/28/2024; based on impedance data and physiological variables, there is no evidence of worsening congestive heart failure. [id number] Cardiac Device Interrogation, cardio physiologic monitor Procedure code (CPT) selection complete Assessment & Plan Assessment & Plan (1) ICD (implantable cardioverter-defibrillator) in place: Comment: Medtronic single chamber Code(s): Z95.810 - Presence of automatic (implantable) cardiac defibrillator Category: Medical (2) Ischemic cardiomyopathy: Code(s): I25.5 - Ischemic cardiomyopathy Category: Medical (3) CHF (congestive heart failure): Code(s): I50.9 - Heart failure, unspecified Category: Medical Plan x Coding Level of Care Code Procedure Only Diagnoses ICD (implantable cardioverter-defibrillator) in place Z95.810 Ischemic cardiomyopathy I25.5 CHF (congestive heart failure) I50.9 CPT Codes Cardiac Device Check - Cardiac Device 15: [id number] Cardiac Device Interrogation, cardio physiologic monitor ([id number])
== END ==
PROVIDERS: PCP Internal Medicine; Visit Provider Internal Medicine
DX: I50.9 Heart failure, unspecified (principal); I25.5 Ischemic cardiomyopathy; Z95.810 Presence of automatic (implantable) cardiac defibrillator
CPT/HCPCS: 93297

== ENCOUNTER 2024-08-04 14:40 | Outpatient (AMB) | payer OTHER, SELFPAY ==
[2024-08-04 14:44] VITALS: BMI 32.1
--- NOTE | 2024-08-04 14:44 | A.OFFVIS_ITS ---
Vital Signs 08/04/24 14:44 Height 5 ft 7 in Weight 205 lb BMI 32.1 Intake Visit Reasons: INP-Parkinson Intake Note: Patient presents for parkinsons Allergies Penicillins Allergy (Intermediate, Verified 08/04/24 14:46) ITCHING Medication List - Last Reconciled 08/04/24 by Lindsay Barnes MD amlodipine 5 mg PO DAILY 90 days aspirin (Enteric Coated Aspirin) 81 mg PO DAILY blood sugar diagnostic (FreeStyle Lite Strips) As directed 4 times a day blood-glucose meter (FreeStyle Lite Meter kit) As directed blood-glucose meter,continuous (FreeStyle Manjit 3 [place]) As directed blood-glucose sensor (FreeStyle Manjit 3 Sensor device) As directed cholecalciferol (vitamin D3) 50 mcg PO DAILY 90 days CPAP (CPAP Machine/Device) As directed famotidine 20 mg PO BEDTIME 90 days nlivnkhhqay-mkzlkctkj-fuiwcyef 100-62.5-25 mcg (Trelegy Ellipta) 1 inh inhalation DAILY 28 days furosemide 40 mg PO DAILY 90 days galantamine ER 8 mg PO QAM insulin aspart U-100 (Novolog FlexPen U-100 Insulin aspart) 20 units (0.2 mL) subcut DAILY insulin degludec (Tresiba FlexTouch U-200 insulin) 74 units (0.37 mL) subcut BEDTIME losartan 25 mg PO DAILY 90 days meclizine 12.5 mg PO Q12H PRN 15 days metformin 1,000 mg PO BID 90 days metoprolol succinate ER 100 mg PO DAILY pen needle, diabetic 4 times a day As directed pramipexole 0.5 mg PO DAILY rosuvastatin 40 mg PO DAILY tirzepatide (Mounjaro) 7.5 mg (0.5 mL) subcut QWEEK Ventolin HFA 90 mcg/actuation (albuterol sulfate) 2 puffs PO Q6H PRN NS HPI Comments Details: 74y/o Right handed male comes for evaluation of tremors ? parkinsons.Laura Gracia - a certified medical secretary helps with todays visit. He is accompanied by his . In 2019 he had a Cardiac surgery - during recovery he was very confused had hallucinations and delusions. He was seen by neurologist - he says he had some testing was told he had parkinsons and ? dementia.He was started on galantamine and pramipexole qhs . He also had sleep study in [place] , diagnosed with ROE and was started on CPAP. He noticed intermittent right hand rest tremors since 2019 and it has progressively worsened since then .The tremors are mostly at rest . the tremors does not bother him and does not affect his ADLs. Sleep is ok . He reports nightmares, vivid dreams , REM behavior disorder. He has mild on and off memory issues .Hallucinations fluctuates and is at night. His mood is Ok and he is not motivated. He did not notice any change in his speech or any drooling . He has mild difficulty with hand writing, using utensils, dressing , needs help with shower. His gait is OK No dizziness , no double vision . He has constipation and mild urgency IT IS UNCLEAR IF HE IS STILL TAKING PRAMIPEXOLE.Unclear if it was given for periodic limb movements. [facility] Medical History (Updated 08/04/24 @ 15:28 by Lindsay Barnes MD) Hallucinations Hypoglycemia due to type 2 diabetes mellitus CHF (congestive heart failure) Type 2 diabetes mellitus Chronic heart failure with preserved ejection fraction (HFpEF) Cardiomyopathy Acute on chronic systolic (congestive) heart failure Defibrillator discharge Hospital discharge follow-up ROE (obstructive sleep apnea) Hypothyroidism Reactive airway disease [id number] syndrome Obesity due to excess calories ROE (obstructive sleep apnea) ROE on CPAP Ischemic cardiomyopathy Atherosclerotic cardiovascular disease GERD (gastroesophageal reflux disease) Hypothyroidism Type 2 diabetes mellitus with hyperglycemia, with long-term current use of insulin Type 2 diabetes mellitus with diabetic polyneuropathy Essential hypertension Chronic systolic (congestive) heart failure ICD (implantable cardioverter-defibrillator) in place HTN (hypertension) CAD (coronary artery disease) Hyperlipidemia LDL goal <70 Dyspnea Bibasilar crackles Sleep apnea Insomnia Delusion of persecution Surgical History H/O inguinal hernia repair History of tooth extraction Hx of CABG (~2019) History of open heart surgery History of bilateral cataract extraction Family History Father No problems noted. Mother CVD (cardiovascular disease) Social History Household Members: Spouse Housing: House Do you presently have visiting nurse or other home services: Yes (every 15 days) Alcohol intake: former Patient Tobacco Use Status: Former Tobacco user e-Cigarette/Vaping Use: Never Used Second Hand Smoke Exposure: No service: No Current occupational status: retired Cognitive needs: Yes Hearing needs: No Vision needs: Yes Physical Exam Vital Signs: BMI result Body Mass Index 32.1 Const General: cooperative, comfortable and anxious Nutritional Appearance: not obese Orientation/consciousness: patient oriented x3 Eyes Pupils: Equal, round and reactive pupils present Neuro Other: Good facial expression , blink Good speech No tremors Noraml fine finger movements and foot taps No cog wheel rigidity General: patient oriented x3, gait normal, tone normal, moves all extremities and no focal motor deficits Cranial nerves: Yes Facial sensation intact/muscles of mastication intact, Yes Equal, round and reactive pupils present, Yes Bilaterally intact EOM present, Yes Nystagmus not present, Yes Normal facial strength present, Yes Midline tongue present and Yes Ability to bilaterally elevate shoulders present Cognition (Neuro): normal cognition Gait exam (Neuro): Normal gait present Deep tendon reflexes (DTR's): Right triceps reflex intensity grade: 1+, Left triceps reflex intensity grade: 1+, Rt Biceps (C5, C6): 1+, Left biceps reflex intensity grade: 1+, Right brachioradialis reflex intensity grade: 1+, Left brachioradialis reflex intensity grade: 1+, Right patellar reflex intensity grade: 1+ and Left patellar reflex intensity grade: 1+ Coordination: hcqahh-us-cxbp test normal Assessment & Plan Assessment & Plan (1) Tremors of nervous system: Comment: senile , exaggertaed physiological , ? early parkinsons Code(s): R25.1 - Tremor, unspecified Category: Medical (2) Memory loss: Comment: age related , ? mild cognitive impairment Code(s): R41.3 - Other amnesia Category: Medical (3) Hallucinations: Comment: ? RBD Code(s): R44.3 - Hallucinations, unspecified Category: Medical Plan No evidence of parkinsons on todays exam Hallucinations are mild - will monitor clinically - unlikely to be LEWY body disease. Could be senile psychosis RBD could be related to Sleep apnea. Patient will call with his updated medications list- he thinks he stopped pramipexole. Continue exercise and i will follow up clinically. Coding Level of Care Code New Pt Level 4 (80216) Complex EM visit Add On G2211 Diagnoses Tremors of nervous system R25.1 Memory loss R41.3 Hallucinations R44.3
== END 2024-08-04 15:35 | disposition home or self-care (01) ==
PROVIDERS: PCP Internal Medicine; Visit Provider Psychiatry & Neurology Neurology
DX: R25.1 Tremor, unspecified (principal); R41.3 Other amnesia; R44.3 Hallucinations, unspecified
CPT/HCPCS: 99204; G2211

== ENCOUNTER → 2024-08-04 14:40 | Outpatient (BNVA) | payer OTHER, SELFPAY | PROVIDERS: PCP Internal Medicine; Visit Provider Psychiatry & Neurology Neurology | DX: R25.1 Tremor, unspecified (principal); R41.3 Other amnesia; R44.3 Hallucinations, unspecified | CPT/HCPCS: 99202 ==

== ENCOUNTER 2024-08-11 14:54 | Outpatient (AMB) | payer OTHER, SELFPAY ==
--- NOTE | 2024-08-11 15:00 | MHC.PC.OV ---
Vital Signs 08/11/24 15:08 Height 5 ft 7 in Weight 205 lb BMI 32.1 BP 108/60 Blood Pressure Location Lt brachial Position Sitting Intake Visit Reasons: dm Intake Note: Patient here for a follow up DM Metal Temperer Required: No Accompanied by: Self / Same As Patient Allergies Penicillins Allergy (Intermediate, Verified 08/11/24 15:36) ITCHING Medication List - Last Reconciled 08/11/24 by Sophie Fulton MD amlodipine 5 mg PO DAILY 90 days aspirin (Enteric Coated Aspirin) 81 mg PO DAILY blood sugar diagnostic (FreeStyle Lite Strips) As directed 4 times a day blood-glucose meter (FreeStyle Lite Meter kit) As directed blood-glucose meter,continuous (FreeStyle Manjit 3 [place]) As directed blood-glucose sensor (FreeStyle Manjit 3 Sensor device) As directed cholecalciferol (vitamin D3) 50 mcg PO DAILY 90 days CPAP (CPAP Machine/Device) As directed famotidine 20 mg PO BEDTIME 90 days stakeatcavo-mipgfgnaq-czjbdaci 100-62.5-25 mcg (Trelegy Ellipta) 1 inh inhalation DAILY 28 days furosemide 40 mg PO DAILY 90 days galantamine ER 8 mg PO QAM insulin aspart U-100 (Novolog FlexPen U-100 Insulin aspart) 20 units (0.2 mL) subcut DAILY insulin degludec (Tresiba FlexTouch U-200 insulin) 74 units (0.37 mL) subcut BEDTIME losartan 25 mg PO DAILY 90 days meclizine 12.5 mg PO Q12H PRN 15 days metformin 1,000 mg PO BID 90 days metoprolol succinate ER 100 mg PO DAILY pen needle, diabetic 4 times a day As directed pramipexole 0.5 mg PO DAILY rosuvastatin 40 mg PO DAILY tirzepatide (Mounjaro) 7.5 mg (0.5 mL) subcut QWEEK Ventolin HFA 90 mcg/actuation (albuterol sulfate) 2 puffs PO Q6H PRN NS Tobacco use date assessed: 08/11/24 Fall risk assessment: No Falls in past year Last assessed Fall Risk: 08/11/24 Dental Screening Dental Screen Date: 08/11/24 Did you have a dental visit in the last 12 months?: No Did you have a dental problem in the last 6 months where you did not have access to dental care?: No Was dental information given to patient?: Patient has dentist HPI HPI Comments History of Present Illness Details The patient is a 74-year-old male presenting with a follow-up for diabetes management. The patient's last Hemoglobin A1c was 10.4%, measured in May. The patient reports previously elevated blood pressures which have now improved. The patient also mentioned tremors but specifics about their duration or severity were not discussed. The primary focus remains on monitoring and controlling blood glucose levels alongside previously elevated hypertension, both of which are chronic concerns. He also has hypertension well controlled with medications, hyperlipidemia on statins, obstructive sleep apnea and is compliant with CPAP machine and chronic systolic congestive heart failure in which last ejection fraction in 2022 was 48% and this is follow by cardiology. Has not gain 5 lb in a week. Walks with a cane for gait stability due to chronic low back pain. Has vertigo and is pending vestibular therapy. He has occasional tremors are follow by Neurology which rule out Parkinson's disease. Also has chronic kidney disease stage 3 that has been stable and is follow by Nephrology. 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 Obesity due to excess calories ROE (obstructive sleep apnea) ROE on CPAP Ischemic cardiomyopathy Atherosclerotic cardiovascular disease GERD (gastroesophageal reflux disease) Hypothyroidism Type 2 diabetes mellitus with hyperglycemia, with long-term current use of insulin Type 2 diabetes mellitus with diabetic polyneuropathy Essential hypertension Chronic systolic (congestive) heart failure ICD (implantable cardioverter-defibrillator) in place HTN (hypertension) CAD (coronary artery disease) Hyperlipidemia LDL goal <70 Dyspnea Bibasilar crackles Sleep apnea Insomnia Delusion of persecution Surgical History H/O inguinal hernia repair History of tooth extraction Hx of CABG (~2019) History of open heart surgery History of bilateral cataract extraction Family History Father No problems noted. Mother CVD (cardiovascular disease) Social History Household Members: Spouse Housing: House Do you presently have visiting nurse or other home services: Yes (every 15 days) Alcohol intake: former Patient Tobacco Use Status: Former Tobacco user e-Cigarette/Vaping Use: Never Used Second Hand Smoke Exposure: No service: No Current occupational status: retired Cognitive needs: Yes Hearing needs: No Vision needs: Yes Questionnaire PHQ-9 Over the last 2 weeks, how often have you been bothered by any of the following problems? 1. Little interest or pleasure in doing things: not at all 2. Feeling down, depressed, or hopeless: not at all 3. Trouble falling or staying asleep, or sleeping too much: not at all 4. Feeling tired or having little energy: not at all 5. Poor appetite or overeating: not at all 6. Feeling bad about yourself - or that you are a failure or have let yourself or your family down: not at all 7. Trouble concentrating on things, such as reading the newspaper or watching television: not at all 8. Moving or speaking so slowly that other people could have noticed. Or the opposite - being so fidgety or restless that you have been moving around a lot more than usual: not at all 9. Thoughts that you would be better off or of hurting yourself in some way: not at all Total score: 0 Depression Screening Interpretation: Negative Depression Screening Done: Yes 09395 - PHQ-9 Billing: Yes Source: Developed by Drs. Godwin Street, Luisa Carlin, Lawrence Escamilla and colleagues, with an educational sonia from [employer]. Thrive Questionnaire Date Thrive assessed: 08/11/24 I am a: Patient What is your living situation today?: I have a steady place to live Within the past 12 months, did the food you bought not last and you didn't have the money to get more?: Never true Within the past 12 months, did you worry whether your food would run out before you got money to buy more?: Never true Do you have trouble paying for medicines?: No Do you have trouble getting transportation to medical appointments?: No Do you have trouble paying your heating and electricity bill?: No Do you have trouble taking care of your child, family member or friend?: No Do you have trouble with day-to-day activities such as bathing, preparing meals, shopping, managing finances, etc.?: No Are you currently unemployed and looking for a job?: No Are you interested in more education?: No Please select the resources that you would like help with: None Currently or been in a relationship where the following occur: No concerns reported THRIVE Score: 0 AUDIT C Alcohol Use Questionnaire (AUDIT-C) 1. How often do you have a drink containing alcohol?: Never Total Score: 0 Score Reviewed/Action Taken: No RENNY-7 AMB Questionnaire RENNY-7 Date RENNY - 7 assessed: 08/11/24 Feeling nervous, anxious, or on edge: 0 = Not at all Not being able to stop or control worryin = Not at all Worrying too much about different things: 0 = Not at all Trouble relaxin = Not at all Being so restless that it is hard to sit still: 0 = Not at all Becoming easily annoyed or irritable: 0 = Not at all Feeling afraid as if something awful might happen: 0 = Not at all Total RENNY-7 score (0-4 normal; 5-9 mild; 10-14 moderate; 15-21 severe): 0 Source: Developed by Drs. Godwin Street, Luisa Carlin, Lawrence Escamilla and colleagues, with an educational sonia from [employer]. RENNY-7 Assessment Billing RENNY-7 Assessment Tool: RENNY-7 Assessment 74611 Review of Systems Const All systems reviewed & are unremarkable except as noted in HPI and below Card Denies chest pain at rest, Denies chest pain with activity, Denies edema, Denies irregular heart rhythm, Denies claudication, Denies dyspnea, Denies dyspnea on exertion, Denies orthopnea, Denies paroxysmal nocturnal dyspnea and Denies slow heart rate Resp Denies cough, Denies dyspnea and Denies dyspnea on exertion GI Denies abdominal pain, Denies change in bowel habits, Denies excessive flatus, Denies nausea and Denies vomiting Physical exam (Primary Care) Vital Signs: Last Vital Signs BP 108/60 08/11/24 15:08 BMI result Body Mass Index 32.1 BMI Assessment/Plan discussion: High BMI High, discussed plan: lifestyle, weight reduction, dietary and physical activity Tobacco/Smoking Status: Tobacco use Status Tobacco use date assessed 08/11/24 08/11/24 15:06 Patient Tobacco Use Status Former Tobacco user 08/11/24 15:06 e-Cigarette/Vaping Use Never Used 08/11/24 15:06 PHQ-9: PHQ-9 Score PHQ-9: Total score 0 08/11/24 15:44 Depression Screening Interpretation: Negative Thrive Assessment: Date of Thrive Assessment Date Thrive assessed 08/11/24 08/11/24 15:06 Currently or been in a relationship where the following occur: No concerns reported Resp Effort & Inspection: normal respiratory effort Auscultation: clear to auscultation bilaterally Cardio Jugular venous distension: no JVD Rate: regular rate Rhythm: regular rhythm Heart sounds: S1 normal heart sound present and S2 normal heart sound present Extrem General: Yes full ROM Office Procedures Flu Questionnaire Does the patient have a severe egg allergy?: No Immunizations Fluarix Triv [id number] (PF) 45 mcg (15 mcg x 3)/0.5 mL IM syringe Performing Provider: Sophie Fulton MD [facility] [place] [facility] Documented (not given) by: OREN Escobar on 08/11/24 15:16 Reason Not Given: Received Previously Coding Level of Care Code Est Pt Level 4 (02594) Complex EM visit Add On G2211 Diagnoses Type 2 diabetes mellitus with hyperglycemia, with long-term current use of insulin E11.65; Z79.4 Diabetes mellitus skilled nursing insulin use: with 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 use Diabetes mellitus complication status: with hyperglycemia Essential hypertension I10 ROE (obstructive sleep apnea) G47.33 Stage 3b chronic kidney disease N18.32 Chronic kidney disease stage 3 subtype: stage 3b (GFR 30-44) Type 2 diabetes mellitus with hyperglycemia, with long-term current use of insulin E11.65; Z79.4 Chronic systolic (congestive) heart failure I50.22 Hyperlipidemia LDL goal <70 E78.5 Additional Codes RENNY-7 Assessment Billing - RENNY-7 Assessment Tool: RENNY-7 Assessment 82180 ([id number]) PHQ-9 - 90383 - PHQ-9 Billing: Yes ([id number]) Time Spent (min) 24 Assessment & Plan Assessment & Plan (1) Type 2 diabetes mellitus: Code(s): E11.9 - Type 2 diabetes mellitus without complications Category: Medical Qualifiers: Diabetes mellitus 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 insulin use: with skilled nursing use Diabetes mellitus complication status: with hyperglycemia Qualified Code(s): E11.65 - Type 2 diabetes mellitus with hyperglycemia; Z79.4 - ocean transportation intermediary (current) use of insulin (2) Essential hypertension: Code(s): I10 - Essential (primary) hypertension Category: Medical (3) ROE (obstructive sleep apnea): Code(s): G47.33 - Obstructive sleep apnea (adult) (pediatric) Category: Medical (4) CKD (chronic kidney disease) stage 3, GFR 30-59 ml/min: Code(s): N18.30 - Chronic kidney disease, stage 3 unspecified Category: Medical Qualifiers: Chronic kidney disease stage 3 subtype: stage 3b (GFR 30-44) Qualified Code(s): N18.32 - Chronic kidney disease, stage 3b (5) Type 2 diabetes mellitus with hyperglycemia, with long-term current use of insulin: Code(s): E11.65 - Type 2 diabetes mellitus with hyperglycemia; Z79.4 - ocean transportation intermediary (current) use of insulin Category: Medical (6) Chronic systolic (congestive) heart failure: Code(s): I50.22 - Chronic systolic (congestive) heart failure Category: Medical (7) Hyperlipidemia LDL goal <70: Code(s): E78.5 - Hyperlipidemia, unspecified Category: Medical Plan - Support blood pressure management in line with reported improvements in hypertension. Patient was informed and verbally consented to the use of an ambient scribe for clinic note documentation during this visit. I discussed with the patient the importance of adhering to a diabetes management plan to reduce A1c levels and the potential complications of uncontrolled diabetes. Blood pressure monitoring was also emphasized given its previous elevation and current stabilization. We explored adjustments to lifestyle measures that could further assist in controlling both conditions, ensuring the patient understands the need for regular follow-up visits. Orders: Orders Influenza [id number] Immunization Today Z23 - Encounter for immunization Vitamin D 25-OH Total Today E55.9 - Vitamin D deficiency, unspecified Lipid Panel Today E78.5 - Hyperlipidemia, unspecified Microalbumin, Random (w Creat) Today R80.9 - Proteinuria, unspecified Vitamin B12 and Folate Today E53.8 - Deficiency of other specified B group vitamins IRON PROFILE Today D64.9 - Anemia, unspecified Complete Blood Count Auto Diff Today D64.9 - Anemia, unspecified Comprehensive [place]. Panel Fast Today N18.32 - Chronic kidney disease, stage 3b Medications: New tirzepatide 10 mg (0.5 mL) subcut QWEEK 4 weeks 2 mL 0RF E11.65 - Type 2 diabetes mellitus with hyperglycemia, Z79.4 - ocean transportation intermediary (current) use of insulin Discontinued pramipexole Discontinued Reason: Patient Completed Course 0.5 mg PO DAILY 90 tabs 0RF tirzepatide (Mounjaro) Discontinued Reason: Patient Completed Course 7.5 mg (0.5 mL) subcut QWEEK 2 mL 3RF Patient Instructions: - Continue monitoring blood glucose levels and follow prescribed diabetes treatment plan. - Maintain blood pressure monitoring routine. - Schedule regular follow-up appointments for ongoing assessment and management. - Alert healthcare provider to any significant changes in symptoms or overall health.
[2024-08-11 15:08] VITALS: BP 108/60; BMI 32.1
== END 2024-08-11 15:47 | disposition home or self-care (01) ==
PROVIDERS: PCP Internal Medicine; Visit Provider Internal Medicine
DX: I13.10 Hypertensive heart and chronic kidney disease without heart failure, with stage 1 through stage 4 chronic kidney disease, or unspecified chronic kidney disease (principal); E11.65 Type 2 diabetes mellitus with hyperglycemia; Z79.4 Long term (current) use of insulin; N18.32 Chronic kidney disease, stage 3b; I50.22 Chronic systolic (congestive) heart failure; G47.33 Obstructive sleep apnea (adult) (pediatric); E78.5 Hyperlipidemia, unspecified

== ENCOUNTER → 2024-08-11 14:54 | Outpatient (BNVA) | payer OTHER, SELFPAY | PROVIDERS: PCP Internal Medicine; Visit Provider Internal Medicine | DX: E78.5 Hyperlipidemia, unspecified (principal); G47.33 Obstructive sleep apnea (adult) (pediatric); M54.50 Low back pain, unspecified; E11.65 Type 2 diabetes mellitus with hyperglycemia; E11.22 Type 2 diabetes mellitus with diabetic chronic kidney disease; I12.9 Hypertensive chronic kidney disease with stage 1 through stage 4 chronic kidney disease, or unspecified chronic kidney disease; N18.32 Chronic kidney disease, stage 3b; I50.22 Chronic systolic (congestive) heart failure; Z79.4 Long term (current) use of insulin; Z99.89 Dependence on other enabling machines and devices; Z79.899 Other long term (current) drug therapy | CPT/HCPCS: 96127; 99212 ==

== ENCOUNTER 2024-08-13 13:40 | Outpatient (AMB) | payer OTHER, SELFPAY ==
--- NOTE | 2024-08-13 13:41 | A.OFFVIS_ITS ---
Vital Signs 08/13/24 13:57 Height 5 ft 7 in Weight 205 lb 0.478 oz BMI 32.1 BP 122/78 Blood Pressure Location Rt brachial Position Sitting Pulse 63 Pulse Source Pulse Oximeter Intake Visit Reasons: f/u T2DM Intake Note: Patient presents today for a follow-up on Type 2 Diabetes Mellitus: Last Diabetic Eye Exam: 12/2023 Last Podiatry Exam- Does not see a [employer] Most recent HbA1c- 10.6%, 08/13/2024 Random Glucose- 329 mg/dL, Today Store Planner Required: Yes Store Planner Language: Trencher Driver Name: OREN Whittaker/ALEX ALEXANDER Information Interpreted: non-clinical & clinical Accompanied by: Self / Same As Patient Allergies Penicillins Allergy (Intermediate, Verified 08/11/24 15:36) ITCHING HPI Comments Details: 73 year old male who is seen in f/u for T2DM. Patient last saw Dr. Hannon 06/24/2024 Initially diagnosed with T2DM approx 30 years ago. On insulin last six years. Current regimen: Tresiba 74 units metformin 1000mg bid Mounjaro 7.5mg weekly Novolog - breakfast 30 units lunch 40 units supper 30 units Saw optho this yr Hypoglycemia as above [facility] Medical History (Updated 08/11/24 @ 19:56 by Sophie Fulton MD) Hallucinations Hypoglycemia due to type 2 diabetes mellitus CHF (congestive heart failure) Type 2 diabetes mellitus Chronic heart failure with preserved ejection fraction (HFpEF) Cardiomyopathy Acute on chronic systolic (congestive) heart failure Defibrillator discharge Hospital discharge follow-up ROE (obstructive sleep apnea) Hypothyroidism Reactive airway disease [id number] syndrome Obesity due to excess calories ROE (obstructive sleep apnea) ROE on CPAP Ischemic cardiomyopathy Atherosclerotic cardiovascular disease GERD (gastroesophageal reflux disease) Hypothyroidism Type 2 diabetes mellitus with hyperglycemia, with long-term current use of insulin Type 2 diabetes mellitus with diabetic polyneuropathy Essential hypertension Chronic systolic (congestive) heart failure ICD (implantable cardioverter-defibrillator) in place HTN (hypertension) CAD (coronary artery disease) Hyperlipidemia LDL goal <70 Dyspnea Bibasilar crackles Sleep apnea Insomnia Delusion of persecution Surgical History H/O inguinal hernia repair History of tooth extraction Hx of CABG (~2019) History of open heart surgery History of bilateral cataract extraction Family History Father No problems noted. Mother CVD (cardiovascular disease) Social History Household Members: Spouse Housing: House Do you presently have visiting nurse or other home services: Yes (every 15 days) Alcohol intake: former Patient Tobacco Use Status: Former Tobacco user e-Cigarette/Vaping Use: Never Used Second Hand Smoke Exposure: No service: No Current occupational status: retired Cognitive needs: Yes Hearing needs: No Vision needs: Yes Physical Exam Vital Signs: Last Vital Signs Pulse 63 08/13/24 13:57 BP 122/78 08/13/24 13:57 BMI result Body Mass Index 32.1 Results AMB Hemoglobin A1c AMB Hemoglobin A1c 10.6 % Last Edit by OREN Whittaker on 08/13/24 14:2 5 Results Reviewed Results Reviewed: Laboratory Last Values Hgb A1c (Clinic) 10.6 % (4.0-6.0) H 08/13/24 14:24 Assessment & Plan Assessment & Plan (1) Type 2 diabetes mellitus with hyperglycemia, with long-term current use of insulin: Code(s): E11.65 - Type 2 diabetes mellitus with hyperglycemia; Z79.4 - watermelon inspector (current) use of insulin Category: Medical Plan: This is a 74-year-old male with a history of type 2 diabetes being treated with Mounjaro, metformin and basal insulin with poor glycemic control and known macrovascular and mcg complications namely CAD on microalbuminuria Orders: Orders AMB Hemoglobin A1c Today E11.65 - Type 2 diabetes mellitus with hyperglycemia, Z79.4 - watermelon inspector (current) use of insulin Coding Diagnoses Type 2 diabetes mellitus with hyperglycemia, with long-term current use of insulin E11.65; Z79.4
[2024-08-13 13:57] VITALS: BP 122/78; PULSE 63; BMI 32.1
== END 2024-08-13 14:24 | disposition home or self-care (01) ==
PROVIDERS: PCP Internal Medicine; Visit Provider Nurse Practitioner Adult Health
DX: E11.65 Type 2 diabetes mellitus with hyperglycemia (principal); Z79.4 Long term (current) use of insulin

== ENCOUNTER → 2024-08-13 13:40 | Outpatient (BNVA) | payer OTHER, SELFPAY | PROVIDERS: PCP Internal Medicine; Visit Provider Nurse Practitioner Adult Health | DX: E11.65 Type 2 diabetes mellitus with hyperglycemia (principal); Z79.4 Long term (current) use of insulin | CPT/HCPCS: 82947; 83036; 99212 ==

== ENCOUNTER 2024-08-20 14:45 | Outpatient (REF) | payer OTHER, SELFPAY ==
[2024-08-20 15:55] LABS: MANUAL DIFF FLAG NO
[2024-08-20 16:45] LABS: Basophils Absolute Auto 0.1 X10*3/uL (0.0-0.2); Basophils Percent Auto 0.5 % (0-2); Eosinophils Absolute Auto 0.3 X10*3/uL (0.0-0.4); Eosinophils Percent Auto 3.2 % (0-4); Hemoglobin 13.2 g/dl (14.0-18.0); Imm Gran Abs Auto 0.04 X10*3/uL (0.00-0.03); Imm Gran Pct Auto 0.4 % (0.0-0.4); Lymphocytes Percent Auto 21.3 % (20-40); Mean Corpuscular HGB Conc 31.4 g/dl (31.0-36.0); Mean Corpuscular Hemoglobin 27.7 pg (27.0-33.0); Mean Corpuscular Volume 88.2 fL (80.0-98.0); Mean Platelet Volume 10.2 fL (9.4-12.4); Monocytes Absolute Auto 1.2 X10*3/uL (0.1-1.2); Monocytes Percent Auto 12.9 % (2-11); Neutrophils Absolute Auto 5.8 x10*3/uL (2.0-8.3); Neutrophils Percent Auto 61.7 % (45-73); Platelet Count 228 X10*3/uL (160-400); Red Blood Count 4.76 X10*6/uL (4.60-5.80); Red Cell Distribution Width 14.7 % (11.0-16.0); White Blood Count 9.4 X10*3/uL (4.8-10.8)
[2024-08-20 17:25] LABS: Alanine Aminotransferase 19 U/L (0-40); Albumin Level 3.4 g/dL (3.5-5.0); Alkaline Phosphatase 69 U/L (39-117); Anion Gap 10 (12-20); Aspartate Amino Transferase 29 U/L (5-37); Bilirubin Total 0.2 mg/dL (0.0-1.0); Blood Urea Nitrogen 30 mg/dL (9-16); Calcium 8.6 mg/dL (8.4-10.2); Carbon Dioxide 29 mmol/L (22-29); Chloride 103 mmol/L (96-108); Cholesterol 97 mg/dL (<200); Estimated Glomerular Filt Rate 34; Glucose Fasting 352 mg/dL (60-99); Glucose Random 351 mg/dL (60-115); HDL Cholesterol 31 mg/dL (>40); Iron 56 mcg/dL (45-160); LDL Cholesterol Calculated 44 mg/dL (<100); Magnesium 2.2 mg/dL (1.6-2.6); Percent Iron Saturation 23 % (15-50); Potassium 5.8 mmol/L (3.3-5.1); Sodium 136 mmol/L (135-145); Total Iron Binding Capacity 241 mcg/dL (228-428); Total Protein 7.4 g/dL (6.5-8.0); Triglycerides 114 mg/dL (<150); Unsaturated Iron Binding 185 ug/dL
[2024-08-20 17:31] LABS: Thyroid Stimulating Hormone 2.02 uIU/mL (0.32-4.0)
== END 2024-08-20 14:46 | disposition home or self-care (01) ==
LOC: HO.LAB 14:45
PROVIDERS: PCP Internal Medicine; Visit Provider Internal Medicine Hypertension Specialist
DX: N18.32 Chronic kidney disease, stage 3b (principal); I10 Essential (primary) hypertension; R41.3 Other amnesia; D64.9 Anemia, unspecified; E78.5 Hyperlipidemia, unspecified
CPT/HCPCS: 36415; 80048; 80053; 80061; 83540; 83735; 84443; 85025

== ENCOUNTER 2024-09-16 13:45 | Outpatient (AMB) | payer OTHER, SELFPAY ==
[2024-09-16 13:58] VITALS: BP 124/78; PULSE 78; BMI 32.1
--- NOTE | 2024-09-16 13:58 | A.OFFVIS_ITS ---
Vital Signs 09/16/24 13:58 Height 5 ft 7 in Weight 205 lb BMI 32.1 BP 124/78 Blood Pressure Location Lt brachial Position Sitting Pulse 78 Pulse Source Pulse Oximeter Intake Visit Reasons: 6 mth f/up Lens Mold Setter Required: Yes Lens Mold Setter Name: [id number] Allergies Penicillins Allergy (Intermediate, Verified 08/11/24 15:36) ITCHING Medication List - Last Reconciled 09/16/24 by Joey Vickers MD amlodipine 5 mg PO DAILY 90 days aspirin (Enteric Coated Aspirin) 81 mg PO DAILY blood sugar diagnostic (FreeStyle Lite Strips) As directed 4 times a day blood-glucose meter (FreeStyle Lite Meter kit) As directed blood-glucose meter,continuous (FreeStyle Manjit 3 [place]) As directed blood-glucose sensor (FreeStyle Manjit 3 Sensor device) As directed cholecalciferol (vitamin D3) 50 mcg PO DAILY 90 days CPAP (CPAP Machine/Device) As directed famotidine 20 mg PO BEDTIME 90 days [id number] 100-62.5-25 mcg (Trelegy Ellipta) 1 inh inhalation DAILY 28 days furosemide 40 mg PO DAILY 90 days insulin aspart U-100 (Novolog FlexPen U-100 Insulin aspart) 20 units (0.2 mL) subcut DAILY insulin degludec (Tresiba FlexTouch U-200 insulin) 74 units (0.37 mL) subcut BEDTIME losartan 25 mg PO DAILY 90 days meclizine 12.5 mg PO Q12H PRN 15 days metoprolol succinate ER 100 mg PO DAILY pen needle, diabetic 4 times a day As directed rosuvastatin 40 mg PO DAILY sodium zirconium cyclosilicate (Lokelma) 5 grams PO DAILY 11 days sulfamethoxazole-trimethoprim 800-160 mg (Bactrim DS) 1 tab PO BID 7 days tirzepatide 10 mg (0.5 mL) subcut QWEEK 4 weeks Ventolin HFA 90 mcg/actuation (albuterol sulfate) 2 puffs PO Q6H PRN NS HPI Comments Details: Ed returns for follow-up regarding coronary disease. He has a history of coronary artery bypass surgery, 2019 in [place]. Also has an ICD in place. Since last seen, he states he is feeling fine. No clear-cut cardiac symptoms like angina or shortness of breath. 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 Obesity due to excess calories ROE (obstructive sleep apnea) ROE on CPAP Ischemic cardiomyopathy Atherosclerotic cardiovascular disease GERD (gastroesophageal reflux disease) Hypothyroidism Type 2 diabetes mellitus with hyperglycemia, with long-term current use of insulin Type 2 diabetes mellitus with diabetic polyneuropathy Essential hypertension Chronic systolic (congestive) heart failure ICD (implantable cardioverter-defibrillator) in place HTN (hypertension) CAD (coronary artery disease) Hyperlipidemia LDL goal <70 Dyspnea Bibasilar crackles Sleep apnea Insomnia Delusion of persecution Surgical History H/O inguinal hernia repair History of tooth extraction Hx of CABG (~2019) History of open heart surgery History of bilateral cataract extraction Family History Father No problems noted. Mother CVD (cardiovascular disease) Social History Household Members: Spouse Housing: House Do you presently have visiting nurse or other home services: Yes (every 15 days) Alcohol intake: former Patient Tobacco Use Status: Former Tobacco user e-Cigarette/Vaping Use: Never Used Second Hand Smoke Exposure: No service: No Current occupational status: retired Cognitive needs: Yes Hearing needs: No Vision needs: Yes Review of Systems Const Denies weakness ENT Denies dizziness Card Denies chest pain, Denies chest pain with activity, Denies syncope, Denies rapid heart rate, Denies pedal edema, Denies edema, Denies leg edema, Denies lightheadedness, Denies palpitations, Denies dyspnea, Denies dyspnea on exertion and Denies orthopnea Resp Denies cough, Denies dyspnea and Denies dyspnea on exertion GI Denies hematochezia and Denies change in stool character Musc Denies abnormal gait, Denies muscle cramps, Denies muscle weakness, Denies numbness, Denies radiating pain into limb and Denies tingling Neuro Denies abnormal gait, Denies dizziness, Denies syncope, Denies numbness, Denies tingling and Denies weakness Endo Denies palpitations Physical Exam Vital Signs: Last Vital Signs Pulse 78 09/16/24 13:58 BP 124/78 09/16/24 13:58 BMI result Body Mass Index 32.1 Const General: comfortable and no acute distress Orientation/consciousness: patient oriented x3 HEENT Other: Unremarkable Head: Yes normal to inspection Neck Neck: Yes normal visual inspection Chest Chest palpation & inspection: normal inspection of the chest Resp Auscultation: clear to auscultation bilaterally Cardio Palpation: normal PMI Heart sounds: S1 normal heart sound present, S2 normal heart sound present, no gallops, no murmurs and no rubs GI Palpation (GI): Soft to palpation Back/Spine/Pelvis Other: unremarkable Skin General skin exam: no rashes or lesions noted Neuro General: patient oriented x3 Extrem General: Yes normal to inspection Psych Mental Status: mental status grossly normal Assessment & Plan Assessment & Plan (1) Atherosclerotic cardiovascular disease: Code(s): I25.10 - Atherosclerotic heart disease of [place] coronary artery without angina pectoris Category: Medical (2) Status post aorto-coronary artery bypass graft: Code(s): Z95.1 - Presence of aortocoronary bypass graft Category: Surgical (3) Chronic heart failure with preserved ejection fraction (HFpEF): Code(s): I50.32 - Chronic diastolic (congestive) heart failure Category: Medical (4) Essential hypertension: Code(s): I10 - Essential (primary) hypertension Category: Medical (5) ICD (implantable cardioverter-defibrillator) in place: Comment: [employer] single chamber Code(s): Z95.810 - Presence of automatic (implantable) cardiac defibrillator Category: Medical Plan Cardiac studies reviewed. Per records, CABG 2019 in [place]. At that time, LVEF documented as 32%. In the last echocardiogram in 2022, LVEF 48%. Most recently, cardiac BNP levels have been around 100. Nothing too abnormal. Clinically, no evidence of congestive heart failure. Continue metoprolol ER, losartan, diuretics. With regard to coronary disease, no anginal-type symptoms. May remain on aspirin and statins. Last LDL 44 mg/dL. With regard to hypertension, on amlodipine, losartan. Stable blood pressure. He is already on polypharmacy and could consider Farxiga/Jardiance but I am not clear of his overall compliance. Discussed with patient using e mail system administrator. ICD can be followed remotely. Follow-up in 6 months. Coding Level of Care Code Est Pt Level 4 (61711) Diagnoses Atherosclerotic cardiovascular disease I25.10 Status post aorto-coronary artery bypass graft Z95.1 Chronic heart failure with preserved ejection fraction (HFpEF) I50.32 Essential hypertension I10 ICD (implantable cardioverter-defibrillator) in place Z95.810
--- OUTSIDE RECORDS SUMMARY | 2024-09-16 15:09 | XMS_ITS | Clinical Summary ---
Author Organization [facility] Address [address] [place] [address] Care Team Providers Care Optician Name Role Phone Ani Sebastian Primary Care Provider [phone] Source Comments PLEASE NOTE, if this patient is a minor, it may be UNLAWFUL to discuss sensitive information that is contained in these records (such as FAMILY PLANNING, MENTAL HEALTH or SUBSTANCE ABUSE) with the minor patient's parent or other person without the patient's specific authorization.[facility] Allergies Active Allergy Reactions Criticality Noted Date Comments Penicillins Hives 08/07/2013 Medications folic acid (FOLVITE) 1 mg tabletIndications :Hyperlipidemia Take 1 Tab by mouth once daily. 30 Tab 4 4 Active aspirin 81 mg EC tabletIndications :History of DC (myocardial infarction),CAD (coronary artery disease) Take 1 Tab by mouth once daily. 30 Tab 4 4 Active blood-glucose meter monitoring kitIndications:DM (diabetes mellitus) ([facility]) as needed for blood glucose monitoring. 1 Each 0 4 Active clotrimazole (LOTRIMIN) 1 % creamIndications: Tinea corporis Apply topically 2 (two) times daily. 30 g 0 4 Active blood pressure monitorIndication s:HTN (hypertension) Dx: HTN, DM, CAD 1 Kit 0 4 Active insulin syringe (ADVOCATE SYRINGES) 1 mL 31 x 5/16 Indications: Diabetes mellitus type 2, uncontrolled 4 (four) times daily with meals and nightly. 150 Syringe 1 Active meclizine (BONINE) 25 mg tabletIndications :Dizziness Take 1 Tab by mouth 3 (three) times daily as needed for dizziness. 90 Tab 2 4 Active magnesium oxide (MAG-OX) 400 mg tabletIndications :Hypomagnesemia Take 1 Tab by mouth once daily. Take with food. 30 Tab 4 4 Active ranitidine (ZANTAC) 150 mg tabletIndications :GERD (gastroesophageal reflux disease) Take 1 Tab by mouth 2 (two) times daily. 60 Tab 4 4 Active metFORMIN (GLUCOPHAGE) 1,000 mg tabletIndications :DM (diabetes mellitus) ([facility]) Take 1 Tab by mouth 2 (two) times daily with a meal. 60 Tab 4 4 Active metoprolol (TOPROL-XL) 100 mg 24 hr tabletIndications :HTN (hypertension) Take 1 Tab by mouth once daily. 30 Tab 4 4 Active ramipril (ALTACE) 10 mg capsuleIndication s:HTN (hypertension) Take 1 Cap by mouth once daily. 30 Cap 4 4 Active rosuvastatin (CRESTOR) 10 mg tabletIndications :Hyperlipidemia Take 1 Tab by mouth once daily. 30 Tab 4 4 Active amLODIPine (NORVASC) 5 mg tabletIndications :HTN (hypertension) Take 1 Tab by mouth once daily. 30 Tab 4 4 Active blood sugar diagnostic (FREESTYLE TEST) stripsIndications :DM (diabetes mellitus) ([facility]) Use bid and prn. Dx: 250.02 100 Each 3 4 Active lancetsIndication s:DM (diabetes mellitus) ([facility]) Freestyle freedom lite. Use bid and prn. Dx: 250.02 100 Each 3 4 Active BD INSULIN PEN NEEDLE UF 31 X 5/16 USE FOUR TIMES DAILY. 150 Each 3 4 Active insulin glargine (LANTUS SOLOSTAR PEN) 100 unit/mL (3 mL) injectionIndicati ons:DM (diabetes mellitus) ([facility]) Inject 50 Units into the skin once daily. 10 Each 3 4 Active HUMALOG KWIKPEN 100 unit/mL injection INJECT VIA SLIDING SCALE THREE TIMES DAILY WITH MEALS. MAX 60 UNITS PER DAY 15 mL 11 4 Active Active Problems Problem Noted Date Diagnosed Date Hypomagnesemia 12/07/2013 Overview (12/07/2013): = 1.6 on 12/02/13 Dizziness 12/07/2013 Overview (12/07/2013): Likely due BPPV DM (diabetes mellitus) ([facility]) 08/07/2013 HTN (hypertension) 08/07/2013 GERD (gastroesophageal reflux disease) 4 Hyperlipidemia 08/07/2013 History of DC (myocardial infarction) 08/07/2013 Overview (08/07/2013): 2005 CAD (coronary artery disease) 08/07/2013 Immunizations Name Administration Dates Next Due INFLUENZA, SEASONAL, INJECTABLE 08/07/2013 Social History Tobacco Use Types Packs/Day Years Used Date Smoking Tobacco: Former Smokeless Tobacco: Never Alcohol Use Standard Drinks/Week Comments No 0 (1 standard drink = 0.6 oz pur e alcohol) Social Connections Answer Date Recorded Social Connections and Isolation 0 03/28/2019 Financial Resource Strain Answer Date R ecorded Financial Resource Strain 0 2018 Stress Answer Date Recorded Stress 0 03/28/2019 Physical Activity Answer Date Recorded Physical Activity 0 03/28/2019 Food Insecurity Answer Date Recorded Food 0 03/28/2019 Transportation Needs Answer Date Record ed Transportation 0 03/28/2019 Housing Stability Answer Date Recorded Housing 0 03/28/2019 Safety and Environment Answer Date Ramiro rded Safety 0 03/28/2019 Utilities Answer Date Recorded Utilities 0 03/28/2019 Employment Answer Date Recorded Employment 0 03/28/2019 Sex and Gender Information Value Date Recorded Sex Assigned at Not on file Legal Sex Male 1:51 PM PST Gender Identity Not on file Sexual Orientation Not on file Last Filed Vital Signs Vital Sign Reading Time Taken Comments Blood Pressure 120/60 02/08/2014 4:41 PM EDT Pulse 72 02/08/2014 4:41 PM EDT Temperature 37.1 ??C (98.7 ??F) 02/08/2014 4:41 PM ED T Respiratory Rate 16 02/08/2014 4:41 PM EDT Oxygen Saturation - - Inhaled Oxygen Concentration - - Weight 89.9 kg (198 lb 1.6 oz) 02/08/2014 4:41 P M EDT Height 170.2 cm (5' 7 ) 02/08/2014 4:41 PM EDT Body Mass Index 31.03 02/08/2014 4:41 PM EDT Plan of Treatment Not on file Insurance MED[place] Care Teams Optician Relationship Specialty Start Date End Date Ani Sebastian PA [address] [place] [address] PCP - General Internal Medicine 08/07/13
--- OUTSIDE RECORDS SUMMARY | 2024-09-16 15:09 | XMS_ITS | Clinical Summary ---
Author Organization [facility] Address [address] [place] [address] [address] [place] [address] Phone Care Team Providers Care String Cutter Name Role Phone Sophie Enrique MD Primary Care Provider [phone] Allergies Active Allergy Reactions Criticality Noted Date Comments Penicillins Hives,Other (see comments) 08/07/19 14 Medications albuterol HFA (PROVENTIL HFA;VENTOLIN HFA) 108 (90 Base) MCG/ACT inhaler 2 puffs by Other route Active amLODIPine (NORVASC) 5 MG tablet Take 1 tablet by mouth 1 (one) time each day Active famotidine (PEPCID) 20 MG tablet Take 40 mg by mouth 1 (one) time each day Active folic acid (FOLVITE) 1 MG tablet Take 1 tablet by mouth 1 (one) time each day Active galantamine (RAZADYNE) 8 MG tablet Take 1 tablet by mouth 1 (one) time each day Active insulin aspart (NovoLOG) 100 UNIT/ML injection Inject 45 Units under the skin 4 (four) times a day Active Insulin Glargine, 2 Unit Dial, 300 UNIT/ML solution pen-injector Inject 0.25 mL under the skin at bed time Active levothyroxine (SYNTHROID, LEVOTHROID) 50 MCG tablet Take 1 tablet by mouth 1 (one) time each day Active meclizine (ANTIVERT) 12.5 MG tablet Take 1 tablet by mouth 2 (two) times a day Active metoprolol succinate XL (TOPROL-XL) 100 MG 24 hr tablet Take 1 tablet by mouth 1 (one) time each day Active pramipexole (MIRAPEX) 0.5 MG tablet Take 1 tablet by mouth Active rosuvastatin (CRESTOR) 40 MG tablet Take 1 tablet by mouth 1 (one) time each day Active traZODone (DESYREL) 50 MG tablet Take 1 tablet by mouth 1 (one) time each day Active Trulicity 0.75 MG/0.5ML solution pen-injector ADMINISTER 0.75 MG UNDER THE SKIN EVERY WEEK. 1 Active furosemide (LASIX) 20 MG tablet Take 40 mg by mouth 1 (one) time each day 1 Active aspirin (ST GRAYSON) 81 MG EC tablet Take 81 mg by mouth 1 (one) time each day Active losartan (Cozaar) 25 MG tablet Take 1 tablet (25 mg total) by mouth 1 (one) time each day 30 tablet 11 1 Active metFORMIN (GLUCOPHAGE) 500 MG tablet Take 500 mg by mouth in the morning and 500 mg in the evening. 2 Active Active Problems Problem Noted Date Diagnosed Date Chronic kidney disease stage 3 10/14/2020 Dizziness 12/07/2013 Overview (10/14/2020): Likely due BPPV Hypomagnesemia 12/07/2013 Overview (10/14/2020): = 1.6 on 12/02/13 Coronary arteriosclerosis 08/07/2013 Diabetes mellitus 08/07/2013 Gastroesophageal reflux disease 08/07/2013 History of myocardial infarction 08/07/2013 Overview (10/14/2020): 2005 Hyperlipidemia 08/07/2013 Hypertensive disorder 08/07/2013 Immunizations Name Administration Dates Next Due Influenza TIV (IM) 08/07/2013 Family History Relation Status Comments Father Mother Social History Tobacco Use Types Packs/Day Years Used Date Smoking Tobacco: Never Smokeless Tobacco: Never Sex and Gender Information Value Date Recorded Sex Assigned at Not on file Legal Sex Male 4:58 PM EST Gender Identity Not on file Sexual Orientation Not on file Last Filed Vital Signs Vital Sign Reading Time Taken Comments Blood Pressure 122/61 03/07/2023 1:20 PM EDT Pulse 67 03/07/2023 1:20 PM EDT Temperature - - Respiratory Rate - - Oxygen Saturation 98% 03/07/2023 1:20 PM EDT Inhaled Oxygen Concentration - - Weight 97.6 kg (215 lb 3.2 oz) 03/07/2023 1:20 P M EDT Height 170.2 cm (5' 7 ) 11/26/2022 2:02 PM EDT Body Mass Index 33.71 11/26/2022 2:02 PM EDT Plan of Treatment Health Maintenance Due Date Last Done Comments Pneumococcal Vaccine: 65+ Ye ars (1 of 2 - PCV) 1956 Diabetes: Ophthalmology Exam 09/02/2020 Diabetes: Pedal Pulse Checked 09/02/2020 Diabetes: Sensory Foot Exam 09/02/2020 Diabetes: Visual Foot Exam 09/02/2020 Diabetes: Hemoglobin A1C 11/06/2020 08/08/2020 Influenza Vaccine (#1) 2024 08/07/2013 Hepatitis B Vaccine Aged Out No longe r eligible based on patient's age to complete this topic Procedures Procedure Name Priority Date/Time Associated Diagnosis Comments BLOOD PANEL (HC) Routine 08/08/2020 12:0 0 AM EST from Last 3 Months or Most Recently Relevant to Health Maintenance Results * (ABNORMAL) Blood Panel (08/08/2020 12:00 AM EST) Potassium 5.5(H) 3.5 - 5.1 mmol/L [facility] Cholesterol 111 <200 mg/dl [facility] eGFR Non- 39(L) >60 ml/min [facility] HDL 35(L) >40 mg/dl [facility] Sodium 135(L) 137 - 145 mmol/L [facility] Creatinine 1.74(H) 0.70 - 1.30 mg/dl [facility] Triglycerides 124 <150 mg/dl [facility] Hemoglobin A1C 6.9(H) <5 % [facility] BUN 25(H) 9 - 20 mg/dl [facility] Calcium 8.2(L) 8.4 - 10.2 mg/dl [facility] LDL,Direct 52 <130 mg/dl [facility] 08/08/2020 us [facility]version [facility] [id number] LICITED RESULTS Final Result [facility] from Last 3 Months or Most Recently Relevant to Health Maintenance Insurance [facility] ([id number]) [facility] ([id number]) Care Teams String Cutter Relationship Specialty Start Date End Date Sophie Enrique MD [address] [place] [address] PCP - General Internal Medicine 01/19/21
== END 2024-09-16 14:15 | disposition home or self-care (01) ==
PROVIDERS: PCP Internal Medicine; Visit Provider Internal Medicine
DX: I25.10 Atherosclerotic heart disease of native coronary artery without angina pectoris (principal); Z95.1 Presence of aortocoronary bypass graft; I50.32 Chronic diastolic (congestive) heart failure; I10 Essential (primary) hypertension; Z95.810 Presence of automatic (implantable) cardiac defibrillator
CPT/HCPCS: 99214

== ENCOUNTER → 2024-09-16 13:45 | Outpatient (BNVA) | payer OTHER, SELFPAY | PROVIDERS: PCP Internal Medicine; Visit Provider Internal Medicine | DX: I11.0 Hypertensive heart disease with heart failure (principal); I50.32 Chronic diastolic (congestive) heart failure; I25.10 Atherosclerotic heart disease of native coronary artery without angina pectoris; Z95.1 Presence of aortocoronary bypass graft; Z95.810 Presence of automatic (implantable) cardiac defibrillator | CPT/HCPCS: 99212 ==

== ENCOUNTER 2024-09-18 09:57 | Outpatient (AMB) | payer OTHER, SELFPAY ==
--- NOTE | 2024-09-18 07:30 | A.OFFVIS_ITS ---
Vital Signs 09/18/24 10:06 Height 5 ft 7 in Weight 205 lb 0.478 oz BMI 32.1 BP 148/58 H Blood Pressure Location Rt brachial Position Sitting Pulse 61 Pulse Source Pulse Oximeter Intake Visit Reasons: T2DM Intake Note: Patient presents today for a follow-up on Type 2 Diabetes Mellitus: Last Diabetic Eye Exam: 12/2023 Last Podiatry Exam- Does not see a Global Human Resources Director Most recent HbA1c- 10.6%, 08/13/2023 Random Glucose- 200 mg/dL, Today Skin Drier Required: Yes Skin Drier Language: Glass Cylinder Flanger Services: Skin Drier Present (via video call) Skin Drier Name: OREN Whittaker/AELX ORNELAS Information Interpreted: non-clinical & clinical Accompanied by: Self / Same As Patient Allergies Penicillins Allergy (Intermediate, Verified 09/18/24 10:08) ITCHING HPI Comments Details: 73 year old male who is seen in f/u for T2DM. Patient was last seen in endo Clinic by myself 08/13/2024 with an A1c of 10.6%. Initially diagnosed with T2DM approx 30 years ago. On insulin last six years. Current regimen: Tresiba 40 units metformin 1000mg bid Mounjaro 7.5mg weekly Novolog tid with meals increase by 4 units every 50 points 80-150 20 units 151-200 24 units 201-250 28 units 251-300 32 units over 300 34 units Freestyle suleman sensor 3 average glucose: 214 14 day continuous glucose sensor report reviewed Glucose Management indicator 8.4 % Time CGM active 33 % TIme in ranges: 34 % very high (above 250) 24 % high (181-250) 42% in range (70-180] 0 % low (69-55) [ 0] % very low (below 54) [43 ] Glucose variability [ ] (target <36%) Interpretation of CGMS sugars overall running high with postprandial increases Saw optho last year no retinopathy Has nephropathy EGFR 03/25/2024 37 up from previous 31 microalbumin 789 on ARB followed by nephrology LDL 65 03/25/2024 on statin [facility] Medical History Hallucinations Hypoglycemia due to type 2 diabetes mellitus CHF (congestive heart failure) Type 2 diabetes mellitus Chronic heart failure with preserved ejection fraction (HFpEF) Cardiomyopathy Acute on chronic systolic (congestive) heart failure Defibrillator discharge Hospital discharge follow-up ROE (obstructive sleep apnea) Hypothyroidism Reactive airway disease [id number] syndrome Obesity due to excess calories ROE (obstructive sleep apnea) ROE on CPAP Ischemic cardiomyopathy Atherosclerotic cardiovascular disease GERD (gastroesophageal reflux disease) Hypothyroidism Type 2 diabetes mellitus with hyperglycemia, with long-term current use of insulin Type 2 diabetes mellitus with diabetic polyneuropathy Essential hypertension Chronic systolic (congestive) heart failure ICD (implantable cardioverter-defibrillator) in place HTN (hypertension) CAD (coronary artery disease) Hyperlipidemia LDL goal <70 Dyspnea Bibasilar crackles Sleep apnea Insomnia Delusion of persecution Surgical History H/O inguinal hernia repair History of tooth extraction Hx of CABG (~2019) History of open heart surgery History of bilateral cataract extraction Family History Father No problems noted. Mother CVD (cardiovascular disease) Social History Household Members: Spouse Housing: House Do you presently have visiting nurse or other home services: Yes (every 15 days) Alcohol intake: former Patient Tobacco Use Status: Former Tobacco user e-Cigarette/Vaping Use: Never Used Second Hand Smoke Exposure: No service: No Current occupational status: retired Cognitive needs: Yes Hearing needs: No Vision needs: Yes Physical Exam Vital Signs: Last Vital Signs Pulse 61 09/18/24 10:06 BP 148/58 H 09/18/24 10:06 BMI result Body Mass Index 32.1 Const Other: Absence of Cushingoid features. Absence of acromegalic features. Neck exam reveals nl size thyroid about 15 gms. No thyroid nodules palpable.t. Lungs CTA. Heart S1 S2, Reg R/R. No M/R G. Skin exam reveals absence of vitiligo or acanthosis nigricans. No edema foot exam deferred villarreal small area 1cm scab otherwise clean no erythema Office Procedures Glucose Monitoring Details Details: see [facility] [address] - Glucose monitoring, continuous-physician I&R Procedure code (CPT) selection complete Results Reviewed Results Reviewed: Laboratory Last Values Glucose (Clinic) 200 mg/dL (60-115) H 09/18/24 10:13 Assessment & Plan Assessment & Plan (1) Type 2 diabetes mellitus with hyperglycemia, with long-term current use of insulin: Code(s): E11.65 - Type 2 diabetes mellitus with hyperglycemia; Z79.4 - exterminator termite (current) use of insulin Category: Medical Plan: This is a 74-year-old male with a history of type 2 diabetes being t reated with Mounjaro, metformin and basal insulin with poor glycemic control and known macrovascular and mcg complications namely CAD and microalbuminuria. Lantus 40 units 80-150 20 units 151-200 24 units 201-250 28 units 251-300 32 units over 300 34 units stop metformin jardiance Side effects of SGLT-2 inhibitors : UTI, fungal infection, bacterial infection in the perineum, light headed, feeling like you may pass out, low blood sugar, sedrick's gangrene dehydration, allergic reaction-skin rash, itching, hives, rare dka, change in kidney function, rare pancreatitis, Contact PCP or go to ur gent care for any infection. More serious reaction go to ER and stop medication, Notify Endo if medication is stopped and your blood sugars increase. labs in 3 weeks rtc 3 weeks I left message for Cardiology PA to determine if Lasix dose should be decreased. The patient had an opportunity to ask questions regarding treatment plan. The patient expressed understanding and agreement with the above treatment plan. The patient is aware they should contact our office by phone for worsening glucose readings or for any low blood sugars which may warrant a change in diabetes medication. Compliance is encouraged with medications and any followup testing/consults which may have been ordered. Orders: Orders AMB Glucose Monitoring Today E11.65 - Type 2 diabetes mellitus with hyperglycemia, Z79.4 - USP (current) use of insulin Basic Metabolic Panel 3 Weeks E11.65 - Type 2 diabetes mellitus with hyperglycemia, Z79.4 - USP (current) use of insulin Coding Level of Care Code Est Pt Level 4 (49944) Complex EM visit Add On G2211 Diagnoses Type 2 diabetes mellitus with hyperglycemia, with long-term current use of insulin E11.65; Z79.4 CPT Codes Details - CPT: 28087 - Glucose monitoring, continuous-physician I&R ([id number]) Time Spent (min) 30 Comment Time spent reviewing labs/provider notes, glucose,sensor reports, face to face, chart doc
[2024-09-18 10:06] VITALS: BP 148/58; PULSE 61; BMI 32.1
[2024-09-18 10:22] LABS: Glucose, Whole Blood 200 mg/dL (60-115)
--- OUTSIDE RECORDS SUMMARY | 2024-09-18 10:34 | XMS_ITS | Clinical Summary ---
Author Organization [facility] Address [address] [place] [address] Care Team Providers Care Farm Forestry And Garden Workers Name Role Phone Ani Sebastian Primary Care Provider [phone] Source Comments PLEASE NOTE, if this patient [...] aspirin 81 mg EC tabletIndications :History of [place] (myocardial infarction),CAD (coronary artery disease) Take 1 Tab by mouth once daily. 30 Tab 4 4 Active blood-glucose meter monitoring kitIndications:DM (diabetes mellitus) ([facility]) as needed for blood glucose monitoring. 1 [...] (GLUCOPHAGE) 1,000 mg tabletIndications :DM (diabetes mellitus) ([facility]) Take 1 Tab by mouth 2 (two) [...] diagnostic (FREESTYLE TEST) stripsIndications :DM (diabetes mellitus) ([facility]) Use bid and prn. Dx: 250.02 100 Each 3 4 Active lancetsIndication s:DM (diabetes mellitus) ([facility]) Freestyle freedom lite. Use bid and prn. Dx: 250.02 100 Each 3 4 Active BD INSULIN PEN NEEDLE UF 31 X 5/16 USE FOUR TIMES DAILY. 150 Each 3 4 Active insulin glargine (LANTUS SOLOSTAR PEN) 100 unit/mL (3 mL) injectionIndicati ons:DM (diabetes mellitus) ([facility]) Inject 50 Units into the skin once daily. 10 Each 3 4 Active HUMALOG KWIKPEN 100 unit/mL injection INJECT VIA SLIDING SCALE THREE TIMES DAILY WITH MEALS. MAX 60 UNITS PER DAY 15 mL 11 4 Active Active Problems Problem Noted Date Diagnosed Date Hypomagnesemia 12/07/2013 Overview (12/07/2013): = 1.6 on 12/02/13 Dizziness 12/07/2013 Overview (12/07/2013): Likely due BPPV DM (diabetes mellitus) ([facility]) 08/07/2013 HTN (hypertension) 08/07/2013 GERD (gastroesophageal reflux disease) 4 Hyperlipidemia 08/07/2013 History of [place] (myocardial infarction) 08/07/2013 Overview (08/07/2013): 2005 CAD [...] Treatment Not on file [place] Care Teams Farm Forestry And Garden Workers Relationship Specialty Start Date End Date Ani Sebastian PA [address] [place] [address] PCP - General Internal Medicine 08/07/13
--- OUTSIDE RECORDS SUMMARY | 2024-09-18 10:34 | XMS_ITS | Clinical Summary ---
Author Organization [facility] Address [address] [place] [address] [address] [place] [address] Phone Care Team Providers Care Food Sampler Name Role Phone Sophie Enrique MD Primary Care Provider [phone] Allergies Active Allergy Reactions Criticality Noted Date [...] mg/dl PVNMA 08/08/2020 us Rtama Conversion LAB [id number] LICITED RESULTS Final Result PVNMA from Last 3 Months or Most Recently Relevant to Health Maintenance Insurance [facility] ([id number]) [facility] ([id number]) Care Teams Food Sampler Relationship Specialty Start Date End Date Sophie Enrique MD [address] [place] [address] PCP - General Internal Medicine 01/19/21
== END 2024-09-18 11:06 | disposition home or self-care (01) ==
PROVIDERS: PCP Internal Medicine; Visit Provider Nurse Practitioner Adult Health
DX: E11.65 Type 2 diabetes mellitus with hyperglycemia (principal); Z79.4 Long term (current) use of insulin
CPT/HCPCS: 95251; 99214; G2211

== ENCOUNTER → 2024-09-18 09:57 | Outpatient (BNVA) | payer OTHER, SELFPAY | PROVIDERS: PCP Internal Medicine; Visit Provider Nurse Practitioner Adult Health | DX: E11.65 Type 2 diabetes mellitus with hyperglycemia (principal); Z79.4 Long term (current) use of insulin | CPT/HCPCS: 82947; 99212 ==

== ENCOUNTER → 2024-09-28 23:59 | Outpatient (BNV) | payer OTHER, SELFPAY ==
--- NOTE | 2024-09-29 19:11 | MHC.OFFVIS ---
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 Obesity due to excess calories ROE (obstructive sleep apnea) ROE on CPAP Ischemic cardiomyopathy Atherosclerotic cardiovascular disease GERD (gastroesophageal reflux disease) Hypothyroidism Type 2 diabetes mellitus with hyperglycemia, with long-term current use of insulin Type 2 diabetes mellitus with diabetic polyneuropathy Essential hypertension Chronic systolic (congestive) heart failure ICD (implantable cardioverter-defibrillator) in place HTN (hypertension) CAD (coronary artery disease) Hyperlipidemia LDL goal <70 Dyspnea Bibasilar crackles Sleep apnea Insomnia Delusion of persecution Surgical History H/O inguinal hernia repair History of tooth extraction Hx of CABG (~2019) History of open heart surgery History of bilateral cataract extraction Family History Father No problems noted. Mother CVD (cardiovascular disease) Social History Household Members: Spouse Housing: House Do you presently have visiting nurse or other home services: Yes (every 15 days) Alcohol intake: former Patient Tobacco Use Status: Former Tobacco user e-Cigarette/Vaping Use: Never Used Second Hand Smoke Exposure: No service: No Current occupational status: retired Cognitive needs: Yes Hearing needs: No Vision needs: Yes Office Procedures Cardiac Device Check Cardiac Device Check Details: Date of service- 09/28/2024; based on impedance data and physiological variables, there is no evidence of worsening congestive heart failure. [id number] Cardiac Device Interrogation, cardio physiologic monitor Procedure code (CPT) selection complete Assessment & Plan Assessment & Plan (1) ICD (implantable cardioverter-defibrillator) in place: Comment: Medtronic single chamber Code(s): Z95.810 - Presence of automatic (implantable) cardiac defibrillator Category: Medical (2) Ischemic cardiomyopathy: Code(s): I25.5 - Ischemic cardiomyopathy Category: Medical (3) CHF (congestive heart failure): Code(s): I50.9 - Heart failure, unspecified Category: Medical Plan x Coding Level of Care Code Procedure Only Diagnoses ICD (implantable cardioverter-defibrillator) in place Z95.810 Ischemic cardiomyopathy I25.5 CHF (congestive heart failure) I50.9 CPT Codes Cardiac Device Check - Cardiac Device 15: [id number] Cardiac Device Interrogation, cardio physiologic monitor ([id number])
== END ==
PROVIDERS: PCP Internal Medicine; Visit Provider Internal Medicine
DX: I25.5 Ischemic cardiomyopathy (principal); I50.9 Heart failure, unspecified; Z95.810 Presence of automatic (implantable) cardiac defibrillator
CPT/HCPCS: 93297

== ENCOUNTER 2024-10-02 08:59 | Outpatient (AMB) | payer OTHER, SELFPAY ==
--- NOTE | 2024-10-02 09:04 | MHC.PC.OV ---
Vital Signs 10/02/24 09:07 Height 5 ft 7 in Weight 198 lb 8 oz BMI 31.1 BP 120/70 Blood Pressure Location Lt brachial Position Sitting Pulse 60 Pulse Source Pulse Oximeter Temp 97.1 F Temp Source Temporal Artery Scan Pulse Oximetry (%) 93 Oxygen Delivery Method Room Air Intake Visit Reasons: cough for 3 weeks Intake Note: Patient is here to follow up on Cough for 3weeks. Electrogalvanizing Machine Operator Required: Yes Electrogalvanizing Machine Operator Language: Steward/Stewardess Lounge Name: Angel ([id number]) Information Interpreted: non-clinical & clinical Forest Engineer: Present Accompanied by: Spouse Allergies Penicillins Allergy (Intermediate, Verified 10/02/24 09:05) ITCHING Tobacco use date assessed: 10/02/24 Fall risk assessment: No Falls in past year Last assessed Fall Risk: 10/02/24 Dental Screening Dental Screen Date: 08/11/24 HPI HPI Comments History of Present Illness Details 74 y/o male patient who presents to the clinic for the same day appointment. Pt c/o cough, body aches and fevers for 3 weeks. [facility] Medical History (Updated 10/02/24 @ 12:24 by Dora Rueda NP) Influenza A Acute respiratory disease Cough Hallucinations Hypoglycemia due to type 2 diabetes mellitus CHF (congestive heart failure) Type 2 diabetes mellitus Chronic heart failure with preserved ejection fraction (HFpEF) Cardiomyopathy Acute on chronic systolic (congestive) heart failure Defibrillator discharge Hospital discharge follow-up ROE (obstructive sleep apnea) Hypothyroidism Reactive airway disease [id number]-46 syndrome Obesity due to excess calories ROE (obstructive sleep apnea) ROE on CPAP Ischemic cardiomyopathy Atherosclerotic cardiovascular disease GERD (gastroesophageal reflux disease) Hypothyroidism Type 2 diabetes mellitus with hyperglycemia, with long-term current use of insulin Type 2 diabetes mellitus with diabetic polyneuropathy Essential hypertension Chronic systolic (congestive) heart failure ICD (implantable cardioverter-defibrillator) in place HTN (hypertension) CAD (coronary artery disease) Hyperlipidemia LDL goal <70 Dyspnea Bibasilar crackles Sleep apnea Insomnia Delusion of persecution Surgical History H/O inguinal hernia repair History of tooth extraction Hx of CABG (~2019) History of open heart surgery History of bilateral cataract extraction Family History Father No problems noted. Mother CVD (cardiovascular disease) Social History Household Members: Spouse Housing: House Do you presently have visiting nurse or other home services: Yes (every 15 days) Alcohol intake: former Patient Tobacco Use Status: Former Tobacco user e-Cigarette/Vaping Use: Never Used Second Hand Smoke Exposure: Yes service: No Current occupational status: retired Cognitive needs: Yes Hearing needs: No Vision needs: Yes Questionnaire Thrive Questionnaire Date Thrive assessed: 08/11/24 RENNY-7 AMB Questionnaire RENNY-7 Date RENNY - 7 assessed: 08/11/24 Source: Developed by Drs. Godwin Street, Luisa Carlin, Lawrence Escamilla and colleagues, with an educational sonia from [employer]. Review of Systems Const All systems reviewed & are unremarkable except as noted in HPI and below Physical exam (Primary Care) Vital Signs: Last Vital Signs Temp 97.1 F 10/02/24 09:07 Pulse 60 10/02/24 09:07 BP 120/70 10/02/24 09:07 Pulse Ox 93 10/02/24 09:07 Oxygen Delivery Method Room Air 10/02/24 09:07 BMI result Body Mass Index 31.1 Tobacco/Smoking Status: Tobacco use Status Tobacco use date assessed 10/02/24 10/02/24 09:13 Patient Tobacco Use Status Former Tobacco user 10/02/24 09:13 e-Cigarette/Vaping Use Never Used 10/02/24 09:13 Thrive Assessment: Date of Thrive Assessment Date Thrive assessed 08/11/24 10/02/24 09:13 Const General: cooperative and no acute distress Nutritional Appearance: obese Orientation/consciousness: patient oriented x3 HENMT Head: Yes normocephalic Ears: external ears normal and TM abnormal with fluid behind the TM bilateral General nose exam: Nasal discharge present Face and sinus: Yes sinuses nontender Mouth: moist mucous membranes Throat: Yes uvula midline Neck Neck: Yes no lymphadenopathy Resp Effort & Inspection: normal respiratory effort and able to speak in complete sentences Auscultation: no crackles, no rales, no rhonchi and wheezes inspiratory wheezes Cardio Heart sounds: S1 normal heart sound present and S2 normal heart sound present Neuro General: patient oriented x3 Coding Level of Care Code Est Pt Level 4 (53810) Diagnoses Acute cough R05.1 Cough type: acute Acute respiratory disease J06.9 Time Spent (min) 20 Assessment & Plan Assessment & Plan (1) Cough: Code(s): R05.9 - Cough, unspecified Category: Medical Qualifiers: Cough type: acute Qualified Code(s): R05.1 - Acute cough Plan: SARs reults positive for Influenza A. Will order Tamiflu. Ordered Chest Xray OTC cough remedies. (2) Acute respiratory disease: Code(s): J06.9 - Acute upper respiratory infection, unspecified Category: Medical Plan: Ordered SARs Ordered Chest Xray OTC cough remedies. Orders: Orders XR chest 2V Today R05.1 - Acute cough SARS-CoV2/FLU/RSV Today J06.9 - Acute upper respiratory infection, unspecified Medications: New oseltamivir (Tamiflu) 75 mg PO BID 5 days 10 caps 0RF J10.1 - Influenza due to other identified influenza virus with other respiratory manifestations benzonatate 200 mg (2 x 100 mg) PO TID 90 caps 0RF R05.1 - Acute cough
[2024-10-02 09:07] VITALS: BP 120/70; PULSE 60; TEMP 36.2; O2SAT 93; BMI 31.1
--- OUTSIDE RECORDS SUMMARY | 2024-10-02 09:23 | XMS_ITS | Clinical Summary ---
Author Organization [facility] Address [address] [place] [address] [address] [place] [address] Phone Care Team Providers Care Armoured Car Escort Name Role Phone Sophie Enrique MD Primary Care Provider [phone] Allergies Active Allergy Reactions Criticality Noted Date [...] mg/dl PVNMA 08/08/2020 us Rtama Conversion LAB [id number] LICITED RESULTS Final Result PVNMA from Last 3 Months or Most Recently Relevant to Health Maintenance Insurance [facility] ([id number]) [facility] ([id number]) Care Teams Armoured Car Escort Relationship Specialty Start Date End Date Sophie Enrique MD [address] [place] [address] PCP - General Internal Medicine 01/19/21
--- OUTSIDE RECORDS SUMMARY | 2024-10-02 09:23 | XMS_ITS | Clinical Summary ---
Author Organization [facility] Address [address] [place] [address] Care Team Providers Care Hearing And Speech Assistant Name Role Phone Ani Sebastian Primary Care Provider [phone] Source Comments PLEASE NOTE, if this patient [...] aspirin 81 mg EC tabletIndications :History of [place] (myocardial infarction),CAD (coronary artery disease) Take 1 Tab by mouth once daily. 30 Tab 4 4 Active blood-glucose meter monitoring kitIndications:DM (diabetes mellitus) ([facility]) as needed for blood glucose [...] (GLUCOPHAGE) 1,000 mg tabletIndications :DM (diabetes mellitus) ([facility]) Take 1 Tab by mouth [...] diagnostic (FREESTYLE TEST) stripsIndications :DM (diabetes mellitus) ([facility]) Use bid and prn. Dx: 250.02 100 Each 3 4 Active lancetsIndication s:DM (diabetes mellitus) ([facility]) Freestyle freedom lite. Use bid and prn. Dx: 250.02 100 Each 3 4 Active BD INSULIN PEN NEEDLE UF 31 X 5/16 USE FOUR TIMES DAILY. 150 Each 3 4 Active insulin glargine (LANTUS SOLOSTAR PEN) 100 unit/mL (3 mL) injectionIndicati ons:DM (diabetes mellitus) ([facility]) Inject 50 Units into the [...] (12/07/2013): Likely due BPPV DM (diabetes mellitus) ([facility]) 08/07/2013 HTN (hypertension) 08/07/2013 GERD (gastroesophageal reflux disease) 4 Hyperlipidemia 08/07/2013 History of [place] (myocardial infarction) 08/07/2013 Overview (08/07/2013): 2005 CAD [...] Treatment Not on file [place] Care Teams Hearing And Speech Assistant Relationship Specialty Start Date End Date Ani Sebastian PA [address] [place] [address] PCP - General Internal Medicine 08/07/13
== END 2024-10-02 11:12 | disposition home or self-care (01) ==
PROVIDERS: PCP Internal Medicine; Visit Provider Nurse Practitioner Family
DX: R05.1 Acute cough (principal); J06.9 Acute upper respiratory infection, unspecified

== ENCOUNTER 2024-10-02 08:59 | Outpatient (REF) | payer OTHER, SELFPAY ==
--- NOTE | ~2024-10-02 | XR_ITS ---
EXAMINATION: XR CHEST CLINICAL INFORMATION: R05.1 - Acute cough COMPARISON: None available. TECHNIQUE: 2 views of the chest were obtained. FINDINGS: There is moderately dilated right hemidiaphragm with underlying atelectasis. Rest of the right and the left lung is expanded and clear. The heart size and pulmonary vascularity is normal. There is a solitary pacer electrodes in right ventricle, stable. Median sternotomy sutures are seen from previous intervention in stable. XR/XR chest 2V IMPRESSION: Elevated right hemidiaphragm with underlying right basilar atelectasis, stable. Electronically signed by: Lupillo Clay MD 10/02/2024 10:45 AM [facility]
--- OUTSIDE RECORDS SUMMARY | 2024-10-02 10:30 | XMS_ITS | Clinical Summary ---
Author Organization [facility] Address [address] [place] [address] Care Team Providers Care Director Of Materials Name Role Phone Ani Sebastian Primary Care Provider [phone] Source Comments PLEASE NOTE, if this patient [...] aspirin 81 mg EC tabletIndications :History of [place] (myocardial infarction),CAD (coronary artery disease) Take 1 Tab by mouth once daily. 30 Tab 4 4 Active blood-glucose meter monitoring kitIndications:DM (diabetes mellitus) ([facility]) as needed for blood glucose monitoring. 1 [...] (GLUCOPHAGE) 1,000 mg tabletIndications :DM (diabetes mellitus) ([facility]) Take 1 Tab by mouth 2 (two) [...] diagnostic (FREESTYLE TEST) stripsIndications :DM (diabetes mellitus) ([facility]) Use bid and prn. Dx: 250.02 100 Each 3 4 Active lancetsIndication s:DM (diabetes mellitus) ([facility]) Freestyle freedom lite. Use bid and prn. Dx: 250.02 100 Each 3 4 Active BD INSULIN PEN NEEDLE UF 31 X 5/16 USE FOUR TIMES DAILY. 150 Each 3 4 Active insulin glargine (LANTUS SOLOSTAR PEN) 100 unit/mL (3 mL) injectionIndicati ons:DM (diabetes mellitus) ([facility]) Inject 50 Units into the skin once daily. 10 Each 3 4 Active HUMALOG KWIKPEN 100 unit/mL injection INJECT VIA SLIDING SCALE THREE TIMES DAILY WITH MEALS. MAX 60 UNITS PER DAY 15 mL 11 4 Active Active Problems Problem Noted Date Diagnosed Date Hypomagnesemia 12/07/2013 Overview (12/07/2013): = 1.6 on 12/02/13 Dizziness 12/07/2013 Overview (12/07/2013): Likely due BPPV DM (diabetes mellitus) ([facility]) 08/07/2013 HTN (hypertension) 08/07/2013 GERD (gastroesophageal reflux disease) 4 Hyperlipidemia 08/07/2013 History of [place] (myocardial infarction) 08/07/2013 Overview (08/07/2013): 2005 CAD [...] Treatment Not on file [place] Care Teams Director Of Materials Relationship Specialty Start Date End Date Ani Sebastian PA [address] [place] [address] PCP - General Internal Medicine 08/07/13
--- OUTSIDE RECORDS SUMMARY | 2024-10-02 10:30 | XMS_ITS | Clinical Summary ---
Author Organization [facility] Address [address] [place] [address] [address] [place] [address] Phone Care Team Providers Care Lamination Machine Operator Name Role Phone Sophie Enrique MD Primary Care Provider [phone] Allergies Active Allergy Reactions Criticality Noted Date [...] mg/dl PVNMA 08/08/2020 us Rtama Conversion LAB [id number] LICITED RESULTS Final Result PVNMA from Last 3 Months or Most Recently Relevant to Health Maintenance Insurance [facility] ([id number]) [facility] ([id number]) Care Teams Lamination Machine Operator Relationship Specialty Start Date End Date Sophie Enrique MD [address] [place] [address] PCP - General Internal Medicine 01/19/21
[2024-10-02 10:36] LABS: Influenza A PCR POSITIVE (Negative); Influenza B PCR NEGATIVE (Negative); Resp Syncy Virus RNA Qual PCR NEGATIVE (Negative); SARS COV2 PCR INHOUSE NEGATIVE (Negative)
[2024-10-02 11:28] LABS: Vitamin D 25-OH Total 49.5 ng/mL (>30)
[2024-10-02 11:30] LABS: Syphilis Screen Nonreactive (Nonreactive)
[2024-10-02 11:40] LABS: Vitamin B12 802 pg/mL (200-900)
[2024-10-02 11:46] LABS: Creatinine Urine 93.44 mg/dL
[2024-10-02 11:51] LABS: Folate 7.9 ng/mL (> or = 4.0)
[2024-10-02 12:00] LABS: Microalbum/Creatinine Ratio Ur 1008.1 ug/mg cr (<30)
[2024-10-06 20:03] LABS: NT-proBNP 520 pg/mL (<450)
== END 2024-10-02 09:00 | disposition home or self-care (01) ==
LOC: HO.LAB 08:59
PROVIDERS: PCP Internal Medicine; Referring Provider Internal Medicine; Visit Provider Nurse Practitioner Family
DX: R05.1 Acute cough (principal); R80.9 Proteinuria, unspecified; R41.3 Other amnesia; E53.8 Deficiency of other specified B group vitamins; E55.9 Vitamin D deficiency, unspecified; I50.22 Chronic systolic (congestive) heart failure; J06.9 Acute upper respiratory infection, unspecified
CPT/HCPCS: 0241U; 36415; 71046; 82043; 82306; 82570; 82607; 82746; 83880; 86780; 99212

== ENCOUNTER → 2024-10-02 10:08 | Outpatient (BNV) | payer OTHER, SELFPAY | PROVIDERS: PCP Internal Medicine; Referring Provider Internal Medicine; Visit Provider Radiology Diagnostic Radiology | DX: J06.9 Acute upper respiratory infection, unspecified (principal); J98.11 Atelectasis | CPT/HCPCS: 71046 ==

== ENCOUNTER 2024-10-06 12:57 | Outpatient (AMB) | payer OTHER, SELFPAY ==
--- NOTE | 2024-10-06 09:48 | A.OFFVIS_ITS ---
Vital Signs 10/06/24 13:00 Height 5 ft 7 in Weight 198 lb 6.656 oz BMI 31.1 BP 133/70 Blood Pressure Location Rt brachial Position Sitting Pulse 73 Pulse Source Pulse Oximeter Pulse Oximetry (%) 95 Oxygen Delivery Method Room Air Intake Visit Reasons: T2DM Intake Note: Patient presents today for a follow-up on Type 2 Diabetes Mellitus: Last Diabetic Eye Exam: 12/2023 Last Podiatry Exam- Does not see a Mud Car Worker Most recent HbA1c- 10.6%, 08/13/2024 Random Glucose- 220 mg/dL, Today Filament Coil Winder Required: Yes Filament Coil Winder Language: Field Sales Associate Services: Filament Coil Winder Present (via video call) [facility] Information Interpreted: non-clinical & clinical Accompanied by: Self / Same As Patient Allergies Penicillins Allergy (Intermediate, Verified 10/02/24 09:05) ITCHING metformin Adverse Reaction (Intermediate, Verified 10/06/24 09:57) renal function changes HPI Comments Details: 74 year old male who is seen in f/u for T2DM. Patient was last seen in endo Clinic 09/18/24 at which time Jardiance was started and metformin was stopped. 08/13/2024 A1c of 10.6%. Initially diagnosed with T2DM approx 30 years ago. On insulin last six years. Tresiba 50 units Novolog with meals tid 80-150 20 units 151-200 24 units 201-250 28 units 251-300 32 units over 300 34 units metformin stopped last visit jardiance started last visit. HE does know if he picked this up from pharmacy (I called and confirmed he had) Mounjaro 10.0 mg weekly as he saw an add on TV and decided he was afraid of the side effects. Freestyle suleman sensor 3 average glucose: [290 ] 14 day continuous glucose sensor report reviewed no lows high throughout the day Saw optho last year no retinopathy Has nephropathy EGFR 10/02/24 eGFR 37 microalbumin 789 on ARB followed by nephrology LDL 44 08/20/2024 on statin [facility], [facility] Medical History (Updated 10/06/24 @ 09:58 by Sera Gross NP) Chronic kidney disease Influenza A Acute respiratory disease Cough Hallucinations Hypoglycemia due to type 2 diabetes mellitus CHF (congestive heart failure) Type 2 diabetes mellitus Chronic heart failure with preserved ejection fraction (HFpEF) Cardiomyopathy Acute on chronic systolic (congestive) heart failure Defibrillator discharge Hospital discharge follow-up ROE (obstructive sleep apnea) Hypothyroidism Reactive airway disease [id number] syndrome Obesity due to excess calories ROE (obstructive sleep apnea) ROE on CPAP Ischemic cardiomyopathy Atherosclerotic cardiovascular disease GERD (gastroesophageal reflux disease) Hypothyroidism Type 2 diabetes mellitus with hyperglycemia, with long-term current use of insulin Type 2 diabetes mellitus with diabetic polyneuropathy Essential hypertension Chronic systolic (congestive) heart failure ICD (implantable cardioverter-defibrillator) in place HTN (hypertension) CAD (coronary artery disease) Hyperlipidemia LDL goal <70 Dyspnea Bibasilar crackles Sleep apnea Insomnia Delusion of persecution Surgical History H/O inguinal hernia repair History of tooth extraction Hx of CABG (~2019) History of open heart surgery History of bilateral cataract extraction Family History Father No problems noted. Mother CVD (cardiovascular disease) Social History Household Members: Spouse Housing: House Do you presently have visiting nurse or other home services: Yes (every 15 days) Alcohol intake: former Patient Tobacco Use Status: Former Tobacco user e-Cigarette/Vaping Use: Never Used Second Hand Smoke Exposure: Yes service: No Current occupational status: retired Cognitive needs: Yes Hearing needs: No Vision needs: Yes Physical Exam Vital Signs: Last Vital Signs Pulse 73 10/06/24 13:00 BP 133/70 10/06/24 13:00 Pulse Ox 95 10/06/24 13:00 Oxygen Delivery Method Room Air 10/06/24 13:00 BMI result Body Mass Index 31.1 Const Other: Absence of Cushingoid features. Absence of acromegalic features. Heart S1 S2, Reg R/R. No M/R G. Skin exam reveals absence of vitiligo or acanthosis nigricans. Results Reviewed Results Reviewed: Laboratory Last Values Glucose (Clinic) 220 mg/dL (60-115) H 10/06/24 13:19 Assessment & Plan Assessment & Plan (1) Type 2 diabetes mellitus with hyperglycemia, with long-term current use of insulin: Code(s): E11.65 - Type 2 diabetes mellitus with hyperglycemia; Z79.4 - intermediate (current) use of insulin Category: Medical Plan: 74-year-old type 2 diabetic with declining renal function followed by Nephrology, change from metformin to Jardiance had his last visit 1 month ago. He stopped Mounjaro because he saw a commercial listing its side effect. We reviewed these and the unlikely garces of having issue since he had been taking it without problem. He will take all medications as prescribed including restarting the Mounjaro and I did check with his pharmacy to make sure he is receiving Jardiance 10 mg. I will see him back in 5 months when he from [place] and at that time we will order labs to assess starting Jardiance The patient had an opportunity to ask questions regarding treatment plan. The patient expressed understanding and agreement with the above treatment plan. The patient is aware they should contact our office by phone for worsening glucose readings or for any low blood sugars which may warrant a change in diabetes medication. Compliance is encouraged with medications and any followup testing/consults which may have been ordered. (2) Chronic kidney disease: Code(s): N18.9 - Chronic kidney disease, unspecified Category: Medical Plan: Followed by Nephrology. We will recheck labs as metformin was discontinued 1 month and Jardiance was added. SGLT2 side effects again reviewed. Patient Instructions: The patient was counseled to achieve a target A1C of 7% (154 avg). Fasting blood sugars should be 90-130 in the morning and less than 180 two hours after meals. Reviewed the relationship between poor diabetic control and the development of complications. Check your feet daily looking for any signs of infection, drainage, redness, ulceration and seek medical attention if this occurs. Break in shoes gradually and do not wear open-toed shoes or walk stocking footed or barefooted. Acute kidney injury prevention. Sick day management reviewed Coding Level of Care Code Est Pt Level 4 (79863) Complex EM visit Add On G2211 Diagnoses Type 2 diabetes mellitus with hyperglycemia, with long-term current use of insulin E11.65; Z79.4 Chronic kidney disease N18.9 Time Spent (min) 30 Comment Time spent reviewing labs/provider notes, face to face, chart doc
[2024-10-06 13:00] VITALS: BP 133/70; PULSE 73; O2SAT 95; BMI 31.1
[2024-10-06 13:25] LABS: Glucose, Whole Blood 220 mg/dL (60-115)
--- OUTSIDE RECORDS SUMMARY | 2024-10-06 16:02 | XMS_ITS | Clinical Summary ---
Author Organization [facility] Address [address] [place] [address] Care Team Providers Care Custodian Name Role Phone Ani Sebastian Primary Care Provider [phone] Source Comments PLEASE NOTE, if this patient [...] aspirin 81 mg EC tabletIndications :History of NC (myocardial infarction),CAD (coronary artery disease) Take 1 Tab by mouth once daily. 30 Tab 4 4 Active blood-glucose meter monitoring kitIndications:DM (diabetes mellitus) ([facility]) as needed for blood glucose [...] (GLUCOPHAGE) 1,000 mg tabletIndications :DM (diabetes mellitus) ([facility]) Take 1 Tab by mouth [...] diagnostic (FREESTYLE TEST) stripsIndications :DM (diabetes mellitus) ([facility]) Use bid and prn. Dx: 250.02 100 Each 3 4 Active lancetsIndication s:DM (diabetes mellitus) ([facility]) Freestyle freedom lite. Use bid and prn. Dx: 250.02 100 Each 3 4 Active BD INSULIN PEN NEEDLE UF 31 X 5/16 USE FOUR TIMES DAILY. 150 Each 3 4 Active insulin glargine (LANTUS SOLOSTAR PEN) 100 unit/mL (3 mL) injectionIndicati ons:DM (diabetes mellitus) ([facility]) Inject 50 Units into the [...] (12/07/2013): Likely due BPPV DM (diabetes mellitus) ([facility]) 08/07/2013 HTN (hypertension) 08/07/2013 GERD (gastroesophageal reflux disease) 4 Hyperlipidemia 08/07/2013 History of NC (myocardial infarction) 08/07/2013 Overview (08/07/2013): 2005 CAD [...] Treatment Not on file Insurance MEDICARE - ID ID MEDICAID Care Teams Custodian Relationship Specialty Start Date End Date Ani Sebastian PA [address] [place] [address] PCP - General Internal Medicine 08/07/13
--- OUTSIDE RECORDS SUMMARY | 2024-10-06 16:03 | XMS_ITS | Clinical Summary ---
Author Organization [facility] Address [address] [place] [address] [address] [place] [address] Phone Care Team Providers Care Residential Nurse Name Role Phone Sophie Enrique MD Primary Care Provider Allergies Active Allergy Reactions Criticality Noted Date [...] mg/dl PVNMA 08/08/2020 us Rtama Conversion LAB [id number] LICITED RESULTS Final Result PVNMA from Last 3 Months or Most Recently Relevant to Health Maintenance Insurance [facility] ([id number]) [facility] ([id number]) Care Teams Residential Nurse Relationship Specialty Start Date End Date Sophie Enrique MD [address] [place] [address] PCP - General Internal Medicine 01/19/21
== END 2024-10-06 13:59 | disposition home or self-care (01) ==
PROVIDERS: PCP Internal Medicine; Visit Provider Nurse Practitioner Adult Health
DX: E11.65 Type 2 diabetes mellitus with hyperglycemia (principal); Z79.4 Long term (current) use of insulin; N18.9 Chronic kidney disease, unspecified
CPT/HCPCS: 99214; G2211

== ENCOUNTER → 2024-10-06 12:57 | Outpatient (BNVA) | payer OTHER, SELFPAY | PROVIDERS: PCP Internal Medicine; Visit Provider Nurse Practitioner Adult Health | DX: E11.65 Type 2 diabetes mellitus with hyperglycemia (principal); E11.22 Type 2 diabetes mellitus with diabetic chronic kidney disease; N18.9 Chronic kidney disease, unspecified; Z79.4 Long term (current) use of insulin | CPT/HCPCS: 82947; 99212 ==

== ENCOUNTER 2024-11-25 12:55 | Outpatient (AMB) | payer OTHER, SELFPAY ==
[2024-11-25 13:00] VITALS: BP 122/78; PULSE 77; O2SAT 97; BMI 29.3
--- NOTE | 2024-11-25 13:00 | A.OFFPC_ITS ---
Vital Signs 11/25/24 13:00 Height 5 ft 7 in Weight 187 lb BMI 29.3 BP 122/78 Blood Pressure Location Lt brachial Position Sitting Pulse 77 Pulse Source Pulse Oximeter Pulse Oximetry (%) 97 Oxygen Delivery Method Room Air Intake Visit Reasons: dm Dynamo Tender Required: No Accompanied by: Spouse Allergies Penicillins Allergy (Intermediate, Verified 11/25/24 13:20) ITCHING metformin Adverse Reaction (Intermediate, Verified 11/25/24 13:20) renal function changes Medication List - Last Reconciled 11/25/24 by Sophie Fulton MD amlodipine 5 mg PO DAILY 90 days aspirin (Enteric Coated Aspirin) 81 mg PO DAILY benzonatate 200 mg (2 x 100 mg) PO TID blood sugar diagnostic (FreeStyle Lite Strips) As directed 4 times a day blood-glucose meter (FreeStyle Lite Meter kit) As directed blood-glucose sensor (FreeStyle Manjit 3 Sensor device) As directed blood-glucose,pad machine feeder,cont (FreeStyle Manjit 3 [place]) As directed cholecalciferol (vitamin D3) 50 mcg PO DAILY 90 days CPAP (CPAP Machine/Device) As directed empagliflozin (Jardiance) 10 mg PO DAILY 30 days famotidine 20 mg PO BEDTIME 90 days npfqjtlzisu-jeixjkvzz-cqgbucha 100-62.5-25 mcg (Trelegy Ellipta) 1 inh inhalation DAILY 28 days furosemide 20 mg PO DAILY 90 days insulin aspart U-100 (Novolog FlexPen U-100 Insulin aspart) 20 units (0.2 mL) subcut DAILY insulin degludec (Tresiba FlexTouch U-200 insulin) 84 units (0.42 mL) subcut BEDTIME 90 days losartan 25 mg PO DAILY 90 days meclizine 12.5 mg PO Q12H PRN 15 days metoprolol succinate ER 100 mg PO DAILY oseltamivir (Tamiflu) 75 mg PO BID 5 days pen needle, diabetic 4 times a day As directed rosuvastatin 40 mg PO DAILY sodium zirconium cyclosilicate (Lokelma) 5 grams PO DAILY 11 days tirzepatide 10 mg (0.5 mL) subcut QWEEK 4 weeks Ventolin HFA 90 mcg/actuation (albuterol sulfate) 2 puffs PO Q6H PRN NS Tobacco use date assessed: 11/25/24 Fall risk assessment: No Falls in past year Last assessed Fall Risk: 11/25/24 Dental Screening Dental Screen Date: 11/25/24 Did you have a dental visit in the last 12 months?: No Did you have a dental problem in the last 6 months where you did not have access to dental care?: No Was dental information given to patient?: Patient has dentist HPI HPI Comments History of Present Illness Details The patient is a 74-year-old male presenting with concerns of diabetes management and cardiac evaluation. His recent health evaluations include a high blood sugar level and elevated microalbumin, amidst being monitored by an customer logistics manager for his diabetes. The health assessment also revealed a diminished left ventricular ejection fraction between 40% and 45%, indicative of heart failure with reduced ejection fraction within follow-up cardiology consultations. He maintains a assignment clerk consultation for proteinuria observed in previous kidney evaluations, scheduled for a follow-up in January. The patient?s allergy history is significant for reactions to both penicillin and metformin. Significant daily management adjustments involve Jardiance for diabetes, considering reported urinary symptoms and dosage enhancement. After weight reduction efforts, his weight has decreased from 205 to 187 pounds. Past issues with a CPAP device for sleep apnea have been resolved with the equipment once again in use. Medications like Amlodipine and Aspirin form part of his regimen, alongside a recommendation for surgical evaluation of his gallbladder following imaging investigations addressing upper quadrant discomfort. He has hypertension well controlled. Also has hyperlipidemia and lipid panel was order. LDL goal should be less than 70. He also has urge urinary incontinence and will benefit from diapers and bed under pads. Complains of right upper quadrant abdominal pain and had some issues with gallbladder while vacationing in [place] in which he said that gallbladder had a nonspecified drainage. I order an ultrasound of the abdomen and refer him to surgery. 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 Obesity due to excess calories ROE (obstructive sleep apnea) ROE on CPAP Ischemic cardiomyopathy Atherosclerotic cardiovascular disease GERD (gastroesophageal reflux disease) Hypothyroidism Type 2 diabetes mellitus with hyperglycemia, with long-term current use of insulin Type 2 diabetes mellitus with diabetic polyneuropathy Essential hypertension Chronic systolic (congestive) heart failure ICD (implantable cardioverter-defibrillator) in place HTN (hypertension) CAD (coronary artery disease) Hyperlipidemia LDL goal <70 Dyspnea Bibasilar crackles Sleep apnea Insomnia Delusion of persecution Surgical History H/O inguinal hernia repair History of tooth extraction Hx of CABG (~2019) History of open heart surgery History of bilateral cataract extraction Family History Father No problems noted. Mother CVD (cardiovascular disease) Social History Household Members: Spouse Housing: House Do you presently have visiting nurse or other home services: Yes (every 15 days) Alcohol intake: former Patient Tobacco Use Status: Former Tobacco user e-Cigarette/Vaping Use: Never Used Second Hand Smoke Exposure: Yes service: No Current occupational status: retired Cognitive needs: Yes Hearing needs: No Vision needs: Yes Questionnaire PHQ-9 Over the last 2 weeks, how often have you been bothered by any of the following problems? 1. Little interest or pleasure in doing things: not at all 2. Feeling down, depressed, or hopeless: not at all 3. Trouble falling or staying asleep, or sleeping too much: not at all 4. Feeling tired or having little energy: not at all 5. Poor appetite or overeating: not at all 6. Feeling bad about yourself - or that you are a failure or have let yourself or your family down: not at all 7. Trouble concentrating on things, such as reading the newspaper or watching television: not at all 8. Moving or speaking so slowly that other people could have noticed. Or the opposite - being so fidgety or restless that you have been moving around a lot more than usual: not at all 9. Thoughts that you would be better off or of hurting yourself in some way: not at all Total score: 0 Depression Screening Interpretation: Negative Depression Screening Done: Yes 41331 - PHQ-9 Billing: Yes Source: Developed by Drs. Godwin Street, Luisa Carlin, Lawrence Escamilla and colleagues, with an educational sonia from [employer]. Thrive Questionnaire Date Thrive assessed: 11/25/24 I am a: Patient What is your living situation today?: I have a steady place to live Within the past 12 months, did the food you bought not last and you didn't have the money to get more?: Never true Within the past 12 months, did you worry whether your food would run out before you got money to buy more?: Never true Do you have trouble paying for medicines?: No Do you have trouble getting transportation to medical appointments?: No Do you have trouble paying your heating and electricity bill?: No Do you have trouble taking care of your child, family member or friend?: No Do you have trouble with day-to-day activities such as bathing, preparing meals, shopping, managing finances, etc.?: No Are you currently unemployed and looking for a job?: No Are you interested in more education?: No Please select the resources that you would like help with: None Currently or been in a relationship where the following occur: No concerns reported THRIVE Score: 0 AUDIT C Alcohol Use Questionnaire (AUDIT-C) 1. How often do you have a drink containing alcohol?: Never 3. How often do you have six or more drinks on one occasion?: Never Total Score: 0 Score Reviewed/Action Taken: No RENNY-7 AMB Questionnaire RENNY-7 Date RENNY - 7 assessed: 11/25/24 Feeling nervous, anxious, or on edge: 0 = Not at all Not being able to stop or control worryin = Not at all Worrying too much about different things: 0 = Not at all Trouble relaxin = Not at all Being so restless that it is hard to sit still: 0 = Not at all Becoming easily annoyed or irritable: 0 = Not at all Feeling afraid as if something awful might happen: 0 = Not at all Total RENNY-7 score (0-4 normal; 5-9 mild; 10-14 moderate; 15-21 severe): 0 Source: Developed by Drs. Godwin Street, Lawrence Hammond and colleagues, with an educational sonia from [employer]. RENNY-7 Assessment Billing RENNY-7 Assessment Tool: RENNY-7 Assessment 09419 Review of Systems Const All systems reviewed & are unremarkable except as noted in HPI and below Card Denies chest pain at rest, Denies chest pain with activity, Denies edema, Denies irregular heart rhythm, Denies claudication, Denies dyspnea, Denies dyspnea on exertion, Denies orthopnea, Denies paroxysmal nocturnal dyspnea and Denies slow heart rate Resp Denies cough, Denies dyspnea and Denies dyspnea on exertion GI Denies abdominal pain, Denies change in bowel habits, Denies excessive flatus, Denies nausea and Denies vomiting Denies urinary hesitancy, Denies urinary incontinence and Denies urinary urgency Musc Denies atrophy, Denies deformity and Denies limited range of motion Skin/Breast Denies bleeding lesions, Denies changing lesions and Denies rash Physical exam (Primary Care) Vital Signs: Last Vital Signs Pulse 77 11/25/24 13:00 BP 122/78 11/25/24 13:00 Pulse Ox 97 11/25/24 13:00 Oxygen Delivery Method Room Air 11/25/24 13:00 BMI result Body Mass Index 29.3 Tobacco/Smoking Status: Tobacco use Status Tobacco use date assessed 11/25/24 11/25/24 13:07 Patient Tobacco Use Status Former Tobacco user 11/25/24 13:07 e-Cigarette/Vaping Use Never Used 11/25/24 13:07 PHQ-9: PHQ-9 Score PHQ-9: Total score 0 11/25/24 13:24 Depression Screening Interpretation: Negative Thrive Assessment: Date of Thrive Assessment Date Thrive assessed 11/25/24 11/25/24 13:07 Currently or been in a relationship where the following occur: No concerns reported Const Limitations: ambulation with cane Resp Effort & Inspection: normal respiratory effort Auscultation: clear to auscultation bilaterally Cardio Jugular venous distension: no JVD Rate: regular rate Rhythm: regular rhythm Heart sounds: S1 normal heart sound present and S2 normal heart sound present Extrem General: Yes full ROM Results AMB Hemoglobin A1c AMB Hemoglobin A1c 9.8 % Last Edit by OREN Fu on 11/25/24 13 :25 Coding Level of Care Code Est Pt Level 4 (22382) Complex EM visit Add On G2211 Diagnoses Type 2 diabetes mellitus with hyperglycemia, with long-term current use of insulin E11.65; Z79.4 Urge urinary incontinence N39.41 Cholelithiasis K80.20 Right upper quadrant abdominal pain R10.11 ROE (obstructive sleep apnea) G47.33 Chronic systolic (congestive) heart failure I50.22 Hyperlipidemia LDL goal <70 E78.5 Essential hypertension I10 Additional Codes PHQ-9 - 93583 - PHQ-9 Billing: Yes ([id number]) RENNY-7 Assessment Billing - RENNY-7 Assessment Tool: RENNY-7 Assessment 82777 ([id number]) Time Spent (min) 23 Assessment & Plan Assessment & Plan (1) Type 2 diabetes mellitus with hyperglycemia, with long-term current use of insulin: Code(s): E11.65 - Type 2 diabetes mellitus with hyperglycemia; Z79.4 - bias binding cutter (current) use of insulin Category: Medical (2) Urge urinary incontinence: Code(s): N39.41 - Urge incontinence Category: Medical (3) Cholelithiasis: Code(s): K80.20 - Calculus of gallbladder without cholecystitis without obstruction Category: Medical (4) Right upper quadrant abdominal pain: Code(s): R10.11 - Right upper quadrant pain Category: Medical (5) ROE (obstructive sleep apnea): Code(s): G47.33 - Obstructive sleep apnea (adult) (pediatric) Category: Medical (6) Chronic systolic (congestive) heart failure: Code(s): I50.22 - Chronic systolic (congestive) heart failure Category: Medical (7) Hyperlipidemia LDL goal <70: Code(s): E78.5 - Hyperlipidemia, unspecified Category: Medical (8) Essential hypertension: Code(s): I10 - Essential (primary) hypertension Category: Medical Plan Management during this visit included addressing diabetes by maintaining Jardiance, considering a dose increase contingent on tolerability, monitoring glucose, and exploring Mounjaro. Heart failure management involves continued cardiology oversight and potential medication adjustments. Nephrology follow-up for proteinuria is scheduled, ensuring regular renal assessments. Hypertension treatment with Amlodipine and daily Aspirin will continue. CPAP use resumption for sleep apnea was confirmed and affirmed for adherence. Abdominal discomfort necessitates surgical review regarding gallbladder health if unresolved. A scheduled follow-up visit and vitamin D administration are warranted to augment health management and encourage adherence to lifestyle changes aiding recent weight loss. Patient was informed and verbally consented to the use of an ambient scribe for clinic note documentation during this visit. I informed the patient about the disease prognosis and treatment plans, emphasizing maintaining Jardiance and cautiously increasing its dosage. The risks and benefits of this medication were explained, with particular attention to known side effects such as urinary symptoms. I reiterated the importance of cardiology and nephrology consultations for continued management of heart and kidney health. We discussed the role of weight management in overall health improvement and the importance of continued CPAP usage for sleep apnea. Regarding potential gallbladder concerns, I have outlined waiting for surgical review based on symptom persistence and diagnostic findings. Educational discussions focused on lifestyle modifications and medication adherence for comp rehensive chronic disease management. Regular check-ups and lab work were advised for continued monitoring of disease progression. Orders: Orders AMB Hemoglobin A1c Today Z13.9 - Encounter for screening, unspecified Complete Blood Count Auto Diff Today R10.11 - Right upper quadrant pain US abdomen limited Today K80.20 - Calculus of gallbladder without cholecystitis without obstruction, R10.11 - Right upper quadrant pain Lipid Panel Today E78.5 - Hyperlipidemia, unspecified Microalbumin, Random (w Creat) Today R80.9 - Proteinuria, unspecified Comprehensive Hecker. Panel Fast Today K80.20 - Calculus of gallbladder without cholecystitis without obstruction Referrals General Surgery Referral K80.20 - Calculus of gallbladder without cholecystitis without obstruction Medications: New underpads (Bed Underpads) Use 5 pads per day 150 ea 11RF N39.41 - Urge incontinence [personal wipes] Use 8 per day prn 240 ea 11RF N39.41 - Urge incontinence [adult diapers pull-ups] Use 8 times per day 240 ea 11RF N39.41 - Urge incontinence latex gloves (Latex Gloves, Large) Use 8 pairs per day 240 ea 11RF N39.41 - Urge incontinence Changed From insulin degludec (Tresiba FlexTouch U-200 insulin) 84 units (0.42 mL) subcut BEDTIME 90 days 37.8 mL 11RF To insulin degludec (Tresiba FlexTouch U-200 insulin) 40 units (0.2 mL) subcut BEDTIME 90 days 18 mL 11RF Refilled empagliflozin (Jardiance) 10 mg PO DAILY 30 days 30 tabs 1RF famotidine 20 mg PO BEDTIME 90 days 90 tabs 1RF for heartburn insulin aspart U-100 (Novolog FlexPen U-100 Insulin aspart) with LUNCH 20 units (0.2 mL) subcut DAILY 15 mL 3RF furosemide 20 mg PO DAILY 90 days 90 tabs 0RF losartan 25 mg PO DAILY 90 days 90 tabs 0RF pen needle, diabetic 4 times a day As directed 120 ea 3RF rosuvastatin 40 mg PO DAILY 90 tabs 1RF E78.5 - Hyperlipidemia, unspecified amlodipine 5 mg PO DAILY 90 days 90 tabs 1RF aspirin (Enteric Coated Aspirin) 81 mg PO DAILY 90 tabs 0RF cholecalciferol (vitamin D3) 50 mcg PO DAILY 90 days 90 caps 1RF Patient Instructions: - Continue taking Jardiance as prescribed; report any urinary symptoms. - Follow up with cardiology and nephrology for routine evaluations. - Stick to your current weight loss plan; maintain or improve dietary habits. - Use CPAP regularly for sleep apnea management and report any device issues. - Monitor blood glucose levels regularly. - Schedule and attend all follow-up visits. - Report any persistent or worsening symptoms, especially abdominal pain. - Take prescribed vitamin D and maintain other medications as directed. - Notify of any side effects or new symptoms immediately.
--- OUTSIDE RECORDS SUMMARY | 2024-11-25 15:14 | XMS_ITS | Clinical Summary ---
Author Organization [facility] Address [address] [place] [address] [address] [place] [address] Phone Care Team Providers Care Auto Tester Name Role Phone Sophie Enrique MD Primary Care Provider [phone] Allergies Active Allergy Reactions Criticality Noted Date [...] 2005 Hyperlipidemia 08/07/2013 Hypertensive disorder 08/07/2013 Immunizations Immunization Administration Dates Next Due Influenza TIV (IM) [...] Due Date Last Done Comments Pneumococcal Vaccine: 50+ Ye ars (1 of 2 - PCV) 1967 Diabetes: Ophthalmology Exam 09/02/2020 Diabetes: Pedal Pulse Checked 09/02/2020 Diabetes: Sensory Foot Exam 09/02/2020 Diabetes: Visual Foot Exam 09/02/2020 Diabetes: Hemoglobin A1C 11/06/2020 08/08/2020 Influenza Vaccine (Season Ended) 2025 08/07/19 14 Hepatitis B Vaccine Aged Out No longe [...] mg/dl PVNMA 08/08/2020 us Rtama Conversion LAB [id number] LICITED RESULTS Final Result PVNMA from Last 3 Months or Most Recently Relevant to Health Maintenance Insurance [facility] ([id number]) [facility] ([id number]) Care Teams Auto Tester Relationship Specialty Start Date End Date Sophie Enrique MD [address] [place] [address] PCP - General Internal Medicine 01/19/21
--- OUTSIDE RECORDS SUMMARY | 2024-11-25 15:14 | XMS_ITS | Clinical Summary ---
Author Organization [facility] Address [address] [place] [address] Care Team Providers Care Flooring Machine Operator Name Role Phone Ani Sebastian Primary Care Provider [phone] Source Comments PLEASE NOTE, if this patient [...] Active blood-glucose meter monitoring kitIndications:DM (diabetes mellitus) ([facility]) as needed for blood glucose monitoring. [...] (GLUCOPHAGE) 1,000 mg tabletIndications :DM (diabetes mellitus) ([facility]) Take 1 Tab by mouth 2 [...] diagnostic (FREESTYLE TEST) stripsIndications :DM (diabetes mellitus) ([facility]) Use bid and prn. Dx: 250.02 100 Each 3 4 Active lancetsIndication s:DM (diabetes mellitus) ([facility]) Freestyle freedom lite. Use bid and prn. Dx: 250.02 100 Each 3 4 Active BD INSULIN PEN NEEDLE UF 31 X 5/16 USE FOUR TIMES DAILY. 150 Each 3 4 Active insulin glargine (LANTUS SOLOSTAR PEN) 100 unit/mL (3 mL) injectionIndicati ons:DM (diabetes mellitus) ([facility]) Inject 50 Units into the skin once daily. 10 Each 3 4 Active HUMALOG KWIKPEN 100 unit/mL injection INJECT VIA SLIDING SCALE THREE TIMES DAILY WITH MEALS. MAX 60 UNITS PER DAY 15 mL 11 4 Active Active Problems Problem Noted Date Diagnosed Date Hypomagnesemia 12/07/2013 Overview (12/07/2013): = 1.6 on 12/02/13 Dizziness 12/07/2013 Overview (12/07/2013): Likely due BPPV DM (diabetes mellitus) ([facility]) 08/07/2013 HTN (hypertension) 08/07/2013 GERD (gastroesophageal reflux disease) 4 Hyperlipidemia 08/07/2013 History of [place] (myocardial infarction) 08/07/2013 Overview (08/07/2013): 2005 CAD (coronary artery disease) 08/07/2013 Immunizations Immunization Administration Dates Next Due INFLUENZA, SEASONAL, INJECTABLE [...] Treatment Not on file [place] Care Teams Flooring Machine Operator Relationship Specialty Start Date End Date Ani Sebastian PA [address] [place] [address] PCP - General Internal Medicine 08/07/13
== END 2024-11-25 13:40 | disposition home or self-care (01) ==
LOC: HO.HMCH 12:55
PROVIDERS: PCP Internal Medicine; Visit Provider Internal Medicine
DX: E11.65 Type 2 diabetes mellitus with hyperglycemia (principal); Z79.4 Long term (current) use of insulin; I50.22 Chronic systolic (congestive) heart failure; N39.41 Urge incontinence; K80.20 Calculus of gallbladder without cholecystitis without obstruction; R10.11 Right upper quadrant pain; G47.33 Obstructive sleep apnea (adult) (pediatric); E78.5 Hyperlipidemia, unspecified; I10 Essential (primary) hypertension

== ENCOUNTER → 2024-11-25 12:55 | Outpatient (BNVA) | payer OTHER, SELFPAY | PROVIDERS: PCP Internal Medicine; Visit Provider Internal Medicine | DX: E11.65 Type 2 diabetes mellitus with hyperglycemia (principal); N39.41 Urge incontinence; K80.20 Calculus of gallbladder without cholecystitis without obstruction; R10.11 Right upper quadrant pain; I11.0 Hypertensive heart disease with heart failure; I50.22 Chronic systolic (congestive) heart failure; G47.33 Obstructive sleep apnea (adult) (pediatric); E78.5 Hyperlipidemia, unspecified; Z79.4 Long term (current) use of insulin; Z99.89 Dependence on other enabling machines and devices; Z79.899 Other long term (current) drug therapy | CPT/HCPCS: 83036; 96127; 99212 ==

== ENCOUNTER 2024-11-27 14:02 | Outpatient (AMB) | payer OTHER, SELFPAY ==
--- NOTE | 2024-11-27 10:50 | A.OFFVIS_ITS ---
Vital Signs 11/27/24 14:04 Height 5 ft 7 in Weight 185 lb 3.013 oz BMI 29.0 BP 116/68 Blood Pressure Location Rt brachial Position Sitting Pulse 78 Pulse Source Pulse Oximeter Pulse Oximetry (%) 97 Oxygen Delivery Method Room Air Intake Visit Reasons: T2DM Intake Note: Patient presents today for a follow-up on Type 2 Diabetes Mellitus: Last Diabetic Eye Exam: 12/2023 Last Podiatry Exam- Does not see a Dance Choreographer Most recent HbA1c- 9.8%, 11/25/2024 Random Glucose- 248 mg/dL, Today Agriculture Teacher Required: Yes Agriculture Teacher Services: Agriculture Teacher Present Agriculture Teacher Name: OREN Whittaker/ALEX ORNELAS Information Interpreted: non-clinical & clinical Accompanied by: Self / Same As Patient Allergies Penicillins Allergy (Intermediate, Verified 12/10/24 14:18) ITCHING metformin Adverse Reaction (Intermediate, Verified 12/10/24 14:18) renal function changes HPI Comments Details: 74 year old male who is seen in f/u for T2DM. Patient was last seen in endo Clinic 09/18/24 at which time Jardiance was started and metformin was stopped. 08/13/2024 A1c of 10.6%. Initially diagnosed with T2DM approx 30 years ago. On insulin last six years. Tresiba 50 units Novolog with meals tid 80-150 20 units 151-200 24 units 201-250 28 units 251-300 32 units over 300 34 units metformin stopped last visit jardiance started last visit. HE does know if he picked this up from pharmacy (I called and confirmed he had) Mounjaro 10.0 mg weekly as he saw an add on TV and decided he was afraid of the side effects. Freestyle suleman sensor 3 average glucose: 214 14 day continuous glucose sensor report reviewed no lows high throughout the day Saw optho last year no retinopathy Has nephropathy EGFR 10/02/24 eGFR 37 microalbumin 789 on ARB followed by nephrology LDL 44 08/20/2024 on statin COUNTS INCLUDE 234 BEDS AT [facility] Medical History Chronic kidney disease Foot abrasion, infected Type 2 diabetes mellitus Paresthesia Lumbar pain Sleep apnea Abnormal laboratory test Bibasilar crackles Encounter for interrogation of cardiac defibrillator HTN (hypertension) ROE (obstructive sleep apnea) CHF (congestive heart failure) Physical exam COVID-19 Bronchitis [id number] syndrome Reactive airway disease Hospital discharge follow-up Bronchitis URI (upper respiratory infection) Tremors of nervous system Carpal tunnel syndrome Screen for colon cancer Physical exam Cellulitis Left leg swelling Visual hallucination Cough Acute respiratory disease Influenza A Right upper quadrant abdominal pain Hallucinations Hypoglycemia due to type 2 diabetes mellitus Chronic heart failure with preserved ejection fraction (HFpEF) Cardiomyopathy Acute on chronic systolic (congestive) heart failure Defibrillator discharge ROE (obstructive sleep apnea) Hypothyroidism Obesity due to excess calories ROE on CPAP Ischemic cardiomyopathy Atherosclerotic cardiovascular disease GERD (gastroesophageal reflux disease) Hypothyroidism Type 2 diabetes mellitus with hyperglycemia, with long-term current use of insulin Essential hypertension Chronic systolic (congestive) heart failure ICD (implantable cardioverter-defibrillator) in place CAD (coronary artery disease) Hyperlipidemia LDL goal <70 Dyspnea Insomnia Delusion of persecution Surgical History Epidermal inclusion cyst Lump of skin Hx of CABG (~2019) Status post aorto-coronary artery bypass graft Postop check H/O inguinal hernia repair History of tooth extraction History of open heart surgery History of bilateral cataract extraction Family History Father No problems noted. Mother CVD (cardiovascular disease) Social History Household Members: Spouse Housing: House Do you presently have visiting nurse or other home services: Yes (every 15 days) Alcohol intake: former Patient Tobacco Use Status: Former Tobacco user e-Cigarette/Vaping Use: Never Used Second Hand Smoke Exposure: Yes service: No Current occupational status: retired Cognitive needs: Yes Hearing needs: No Vision needs: Yes Physical Exam Vital Signs: Last Vital Signs Pulse 78 11/27/24 14:04 BP 116/68 11/27/24 14:04 Pulse Ox 97 11/27/24 14:04 Oxygen Delivery Method Room Air 11/27/24 14:04 BMI result Body Mass Index 29.0 Const Other: Absence of Cushingoid features. Absence of acromegalic features. Neck exam reveals nl size thyroid about 15 gms. No thyroid nodules palpable. No carotid bruits present. Lungs CTA. Heart S1 S2, Reg R/R. No M/R G. Skin exam reveals absence of vitiligo or acanthosis nigricans. Results Reviewed Results Reviewed: Laboratory Last Values Glucose (Clinic) 248 mg/dL (60-115) H 11/27/24 14:14 Assessment & Plan Assessment & Plan (1) Type 2 diabetes mellitus with hyperglycemia, with long-term current use of insulin: Code(s): E11.65 - Type 2 diabetes mellitus with hyperglycemia; Z79.4 - FDC (current) use of insulin Category: Medical Plan: 74-year-old type 2 diabetic with improving glucose numbers but still above target. Increase Tresiba to 46 units increase novolog to 26 units The patient had an opportunity to ask questions regarding treatment plan. The patient expressed understanding and agreement with the above treatment plan. The patient is aware they should contact our office by phone for worsening glucose readings or for any low blood sugars which may warrant a change in diabetes medication. Compliance is encouraged with medications and any followup testing/consults which may have been ordered. Medications: Discontinued tirzepatide Discontinued Reason: Doctor's Order 10 mg (0.5 mL) subcut QWEEK 4 weeks 2 mL 0RF E11.65 - Type 2 diabetes mellitus with hyperglycemia, Z79.4 - public relations professional (current) use of insulin Patient Instructions: Take 15 carb carbohydrate grams to treat a low sugar (3-4 glucose tablets, half a glass of juice or 15 carbohydrate grams of soft candy such as gummie snacks). Recheck your sugar in 15 minutes and re-treat again with 15 carbohydrate grams if low or still with symptoms. Do not drive a car or operate machinery if you do not know what your blood sugar is, if it is low or in excess of 300. The patient was counseled to achieve a target A1C of 7% (154 avg). Fasting blood sugars should be 90-130 in the morning and less than 180 two hours after meals. Reviewed the relationship between poor diabetic control and the development of complications. Check your feet daily looking for any signs of infection, drainage, redness, ulceration and seek medical attention if this occurs. Break in shoes gradually and do not wear open-toed shoes or walk stocking footed or barefooted. Coding Level of Care Code Est Pt Level 4 (32352) Complex EM visit Add On G2211 Diagnoses Type 2 diabetes mellitus with hyperglycemia, with long-term current use of insulin E11.65; Z79.4 Time Spent (min) 30 Comment Time spent reviewing labs/provider notes, face to face, chart doc
[2024-11-27 14:04] VITALS: BP 116/68; PULSE 78; O2SAT 97; BMI 29.0
[2024-11-27 14:21] LABS: Glucose, Whole Blood 248 mg/dL (60-115)
--- OUTSIDE RECORDS SUMMARY | 2024-11-27 14:45 | XMS_ITS | Clinical Summary ---
Author Organization [facility] Address [address] [place] [address] Care Team Providers Care Client Server Developer Name Role Phone Ani Sebastian Primary Care Provider [phone] Source Comments PLEASE NOTE, if this patient [...] aspirin 81 mg EC tabletIndications :History of WA (myocardial infarction),CAD (coronary artery disease) Take 1 Tab by mouth once daily. 30 Tab 4 4 Active blood-glucose meter monitoring kitIndications:DM (diabetes mellitus) ([facility]) as needed for blood glucose [...] (GLUCOPHAGE) 1,000 mg tabletIndications :DM (diabetes mellitus) ([facility]) Take 1 Tab by mouth [...] diagnostic (FREESTYLE TEST) stripsIndications :DM (diabetes mellitus) ([facility]) Use bid and prn. Dx: 250.02 100 Each 3 4 Active lancetsIndication s:DM (diabetes mellitus) ([facility]) Freestyle freedom lite. Use bid and prn. Dx: 250.02 100 Each 3 4 Active BD INSULIN PEN NEEDLE UF 31 X 5/16 USE FOUR TIMES DAILY. 150 Each 3 4 Active insulin glargine (LANTUS SOLOSTAR PEN) 100 unit/mL (3 mL) injectionIndicati ons:DM (diabetes mellitus) ([facility]) Inject 50 Units into the [...] (12/07/2013): Likely due BPPV DM (diabetes mellitus) ([facility]) 08/07/2013 HTN (hypertension) 08/07/2013 GERD (gastroesophageal reflux disease) 4 Hyperlipidemia 08/07/2013 History of WA (myocardial infarction) 08/07/2013 Overview (08/07/2013): 2005 CAD [...] Treatment Not on file [place] Care Teams Client Server Developer Relationship Specialty Start Date End Date Ani Sebastian PA [address] [place] [address] PCP - General Internal Medicine 08/07/13
--- OUTSIDE RECORDS SUMMARY | 2024-11-27 14:46 | XMS_ITS | Clinical Summary ---
Author Organization [facility] Address [address] [place] [address] [address] [place] [address] Phone Care Team Providers Care Commutator Undercutter Name Role Phone Sophie Enrique MD Primary Care Provider [phone] Allergies Active Allergy Reactions Criticality Noted Date [...] mg/dl PVNMA 08/08/2020 us Rtama Conversion LAB [id number] LICITED RESULTS Final Result PVNMA from Last 3 Months or Most Recently Relevant to Health Maintenance Insurance [facility] ([id number]) [facility] ([id number]) Care Teams Commutator Undercutter Relationship Specialty Start Date End Date Sophie Enrique MD [address] [place] [address] PCP - General Internal Medicine 01/19/21
== END 2024-11-27 14:37 | disposition home or self-care (01) ==
LOC: HO.ENCR 14:03
PROVIDERS: PCP Internal Medicine; Visit Provider Nurse Practitioner Adult Health
DX: E11.65 Type 2 diabetes mellitus with hyperglycemia (principal); Z79.4 Long term (current) use of insulin
CPT/HCPCS: 99214; G2211

== ENCOUNTER → 2024-11-27 14:02 | Outpatient (BNVA) | payer OTHER, SELFPAY | PROVIDERS: PCP Internal Medicine; Visit Provider Nurse Practitioner Adult Health | DX: E11.65 Type 2 diabetes mellitus with hyperglycemia (principal); Z79.4 Long term (current) use of insulin; Z79.899 Other long term (current) drug therapy | CPT/HCPCS: 82947; 99212 ==

== ENCOUNTER 2024-12-01 09:41 | Outpatient (REF) | payer OTHER, SELFPAY ==
[2024-12-01 09:55] LABS: MANUAL DIFF FLAG NO
--- OUTSIDE RECORDS SUMMARY | 2024-12-01 10:43 | XMS_ITS | Clinical Summary ---
Author Organization [facility] Address [address] [place] [address] Care Team Providers Care Wellness Educator Name Role Phone Ani Sebastian Primary Care Provider [phone] Source Comments PLEASE NOTE, if this patient [...] aspirin 81 mg EC tabletIndications :History of AR (myocardial infarction),CAD (coronary artery disease) Take 1 Tab by mouth once daily. 30 Tab 4 4 Active blood-glucose meter monitoring kitIndications:DM (diabetes mellitus) ([facility]) as needed for blood glucose monitoring. 1 [...] (GLUCOPHAGE) 1,000 mg tabletIndications :DM (diabetes mellitus) ([facility]) Take 1 Tab by mouth 2 (two) [...] diagnostic (FREESTYLE TEST) stripsIndications :DM (diabetes mellitus) ([facility]) Use bid and prn. Dx: 250.02 100 Each 3 4 Active lancetsIndication s:DM (diabetes mellitus) ([facility]) Freestyle freedom lite. Use bid and prn. Dx: 250.02 100 Each 3 4 Active BD INSULIN PEN NEEDLE UF 31 X 5/16 USE FOUR TIMES DAILY. 150 Each 3 4 Active insulin glargine (LANTUS SOLOSTAR PEN) 100 unit/mL (3 mL) injectionIndicati ons:DM (diabetes mellitus) ([facility]) Inject 50 Units into the skin once daily. 10 Each 3 4 Active HUMALOG KWIKPEN 100 unit/mL injection INJECT VIA SLIDING SCALE THREE TIMES DAILY WITH MEALS. MAX 60 UNITS PER DAY 15 mL 11 4 Active Active Problems Problem Noted Date Diagnosed Date Hypomagnesemia 12/07/2013 Overview (12/07/2013): = 1.6 on 12/02/13 Dizziness 12/07/2013 Overview (12/07/2013): Likely due BPPV DM (diabetes mellitus) ([facility]) 08/07/2013 HTN (hypertension) 08/07/2013 GERD (gastroesophageal reflux disease) 4 Hyperlipidemia 08/07/2013 History of AR (myocardial infarction) 08/07/2013 Overview (08/07/2013): 2005 CAD [...] Treatment Not on file [place] Care Teams Wellness Educator Relationship Specialty Start Date End Date Ani Sebastian PA [address] [place] [address] PCP - General Internal Medicine 08/07/13
--- OUTSIDE RECORDS SUMMARY | 2024-12-01 10:43 | XMS_ITS | Clinical Summary ---
Author Organization [facility] Address [address] [place] [address] [address] [place] [address] Phone Care Team Providers Care Boil Off Machine Operator Cloth Name Role Phone Sophie Enrique MD Primary Care Provider [phone] Allergies Active Allergy Reactions Criticality Noted Date [...] mg/dl PVNMA 08/08/2020 us Rtama Conversion LAB [id number] LICITED RESULTS Final Result PVNMA from Last 3 Months or Most Recently Relevant to Health Maintenance Insurance [facility] ([id number]) [facility] ([id number]) Care Teams Boil Off Machine Operator Cloth Relationship Specialty Start Date End Date Sophie Enrique MD [address] [place] [address] PCP - General Internal Medicine 01/19/21
[2024-12-01 10:59] LABS: Basophils Absolute Auto 0.1 X10*3/uL (0.0-0.2); Basophils Percent Auto 0.7 % (0-2); Eosinophils Absolute Auto 0.3 X10*3/uL (0.0-0.4); Eosinophils Percent Auto 4.1 % (0-4); Hemoglobin 12.6 g/dl (14.0-18.0); Imm Gran Abs Auto 0.02 X10*3/uL (0.00-0.03); Imm Gran Pct Auto 0.2 % (0.0-0.4); Lymphocytes Percent Auto 24.5 % (20-40); Mean Corpuscular HGB Conc 30.7 g/dl (31.0-36.0); Mean Corpuscular Hemoglobin 28.6 pg (27.0-33.0); Mean Platelet Volume 10.3 fL (9.4-12.4); Monocytes Absolute Auto 0.9 X10*3/uL (0.1-1.2); Monocytes Percent Auto 11.3 % (2-11); Neutrophils Absolute Auto 4.9 x10*3/uL (2.0-8.3); Neutrophils Percent Auto 59.2 % (45-73); Platelet Count 269 X10*3/uL (160-400); Red Blood Count 4.41 X10*6/uL (4.60-5.80); Red Cell Distribution Width 14.7 % (11.0-16.0); White Blood Count 8.3 X10*3/uL (4.8-10.8)
[2024-12-01 11:32] LABS: Creatinine Urine 74.64 mg/dL; Microalbum/Creatinine Ratio Ur 533.2 ug/mg cr (<30)
[2024-12-01 11:36] LABS: Alanine Aminotransferase 18 U/L (0-40); Albumin Level 3.3 g/dL (3.5-5.0); Alkaline Phosphatase 78 U/L (39-117); Anion Gap 12 (12-20); Aspartate Amino Transferase 28 U/L (5-37); Bilirubin Total 0.4 mg/dL (0.0-1.0); Blood Urea Nitrogen 31 mg/dL (9-16); Calcium 8.7 mg/dL (8.4-10.2); Carbon Dioxide 27 mmol/L (22-29); Chloride 103 mmol/L (96-108); Cholesterol 204 mg/dL (<200); Estimated Glomerular Filt Rate 56; Glucose Fasting 170 mg/dL (60-99); HDL Cholesterol 37 mg/dL (>40); LDL Cholesterol Calculated 143 mg/dL (<100); Potassium 4.7 mmol/L (3.3-5.1); Sodium 137 mmol/L (135-145); Triglycerides 123 mg/dL (<150)
== END 2024-12-01 09:42 | disposition home or self-care (01) ==
LOC: HO.LAB 09:41
PROVIDERS: PCP Internal Medicine; Visit Provider Internal Medicine
DX: E78.5 Hyperlipidemia, unspecified (principal); R10.11 Right upper quadrant pain; R80.9 Proteinuria, unspecified; K80.20 Calculus of gallbladder without cholecystitis without obstruction
CPT/HCPCS: 36415; 80053; 80061; 82043; 82570; 85025

== ENCOUNTER → 2024-12-03 23:59 | Outpatient (BNV) | payer OTHER, SELFPAY | PROVIDERS: PCP Internal Medicine; Visit Provider Internal Medicine | DX: I11.0 Hypertensive heart disease with heart failure (principal); I50.23 Acute on chronic systolic (congestive) heart failure; E11.00 Type 2 diabetes mellitus with hyperosmolarity without nonketotic hyperglycemic-hyperosmolar coma (NKHHC) | CPT/HCPCS: G0180 ==

== ENCOUNTER 2024-12-08 13:19 | Outpatient (AMB) | payer OTHER, SELFPAY ==
--- NOTE | 2024-12-08 13:23 | A.OFFVIS_ITS ---
Vital Signs 3 12/08/24 13:48 Height 5 ft 7 in Weight 187 lb 6.287 oz BMI 29.3 BP 113/56 L Blood Pressure Location Lt brachial Position Sitting Intake Visit Reasons: colo screening Intake Note: Ed presents in the office as a colonoscopy screening. CC: Investigator Narcotics Required: Yes Allergies Penicillins Allergy (Intermediate, Verified 11/27/24 14:06) ITCHING metformin Adverse Reaction (Intermediate, Verified 11/27/24 14:06) renal function changes HPI HPI colo screening: Details: 74-year-old male here for preprocedural meeting to discuss a screening colonoscopy. He is referred by Sophie Enrique. PMX ROE Obesity Asthma Parkinson's disease - early stage ? vs other essential tremor Coronary artery disease with CABG /ischemic cardiomyopathy/chronic systolic heart failure Pacemaker Hypertension High cholesterol Hypothyroid Diabetes Insomnia Chronic kidney disease stage 3 Bilateral carpal tunnel syndrome Cubital tunnel syndrome Memory loss Vertigo Cholelithiasis Urinary urge incontinence * SURGICAL HISTORY CABG Inguinal hernia repair rt x 2 Tooth extraction - poor dentition considering dentures Bilateral cataract extraction * ALLERGIES Penicillin Metformin - impacted renal fxn * [facility] LABS: Laboratory Tests 12/01/24 09:53 WBC 8.3 Hgb 12.6 L Hct 41.0 L MCV 93.0 MCH 28.6 MCHC 30.7 L Estimated GFR 56 Total Bilirubin 0.4 AST 28 ALT 18 Alkaline Phosphatase 78 TODAY'S VISIT Palestinian # Sophie Live This is his second colonoscopy, 1st was in [place] and was normal. He asks about EGD but has absolutely no sx so I expalin this is not routinely done for screening. His heart condition is well controlled as is his ROE and asthma. He denies any upper GI problems and bowel problems. He says he will be having a cholecystectomy soon, but denies any sx. He had some trouble with visual hallucinations after the anesthesia for his CABG, no problems with colonoscopies. No ID problems. There is no known FHX of CRC or polyps. [facility] Medical History Chronic kidney disease Foot abrasion, infected Type 2 diabetes mellitus Paresthesia Lumbar pain Sleep apnea Abnormal laboratory test Bibasilar crackles Encounter for interrogation of cardiac defibrillator HTN (hypertension) ROE (obstructive sleep apnea) CHF (congestive heart failure) Physical exam COVID-19 Bronchitis [id number]-15 syndrome Reactive airway disease Hospital discharge follow-up Bronchitis URI (upper respiratory infection) Tremors of nervous system Carpal tunnel syndrome Screen for colon cancer Physical exam Cellulitis Left leg swelling Visual hallucination Cough Acute respiratory disease Influenza A Right upper quadrant abdominal pain Hallucinations Hypoglycemia due to type 2 diabetes mellitus Chronic heart failure with preserved ejection fraction (HFpEF) Cardiomyopathy Acute on chronic systolic (congestive) heart failure Defibrillator discharge ROE (obstructive sleep apnea) Hypothyroidism Obesity due to excess calories ROE on CPAP Ischemic cardiomyopathy Atherosclerotic cardiovascular disease GERD (gastroesophageal reflux disease) Hypothyroidism Type 2 diabetes mellitus with hyperglycemia, with long-term current use of insulin Essential hypertension Chronic systolic (congestive) heart failure ICD (implantable cardioverter-defibrillator) in place CAD (coronary artery disease) Hyperlipidemia LDL goal <70 Dyspnea Insomnia Delusion of persecution Surgical History Epidermal inclusion cyst Lump of skin Hx of CABG (~2019) Status post aorto-coronary artery bypass graft Postop check H/O inguinal hernia repair History of tooth extraction History of open heart surgery History of bilateral cataract extraction Family History Father No problems noted. Mother CVD (cardiovascular disease) Social History Household Members: Spouse Housing: House Do you presently have visiting nurse or other home services: Yes (every 15 days) Alcohol intake: former Patient Tobacco Use Status: Former Tobacco user e-Cigarette/Vaping Use: Never Used Second Hand Smoke Exposure: Yes service: No Current occupational status: retired Cognitive needs: Yes Hearing needs: No Vision needs: Yes Review of Systems Const Denies fatigue, Denies fever(s), Denies night sweats, Denies poor appetite and Denies weight loss ENT Reports Normal hearing present, Denies dental pain, Denies dysphagia, Denies hearing loss, Denies mouth pain, Denies odynophagia, Denies throat swelling, Denies tongue swelling and Reports other (Dentition adequate) Card Reports no additional complaints Resp Reports no additional complaints GI Details: Denies abdominal pain, Denies melena, Denies bloating, Denies hematochezia, Denies constipation, Denies GI cramping, Denies dysphagia, Denies excessive flatus, Denies early satiety, Denies heartburn, Denies diarrhea, Denies nausea, Denies odynophagia, Denies vomiting and Denies hematemesis Skin/Breast Denies pruritus, Denies lesions, Denies rash and Denies jaundice Neuro Reports Normal hearing present and Denies Abnormal speech present Endo Denies fatigue Aller/Immun Denies throat swelling and Denies tongue swelling Physical Exam Vital Signs: Last Vital Signs BP 113/56 L 12/08/24 13:48 BMI result Body Mass Index 29.3 Const General: cooperative, no acute distress, well developed and well groomed Nutritional Appearance: well nourished and obese Orientation/consciousness: oriented to person, oriented to place and oriented to time Limitations: language barrier and ambulation with cane HEENT Head: Yes normocephalic and Yes atraumatic Eyes General: appearance normal, both eyes and all related structures Pupils: Equal, round and reactive pupils present Neck Neck: Yes normal visual inspection and Yes no lymphadenopathy Thyroid: Thyroid normal Resp Effort & Inspection: normal respiratory effort and able to speak in complete sentences Auscultation: clear to auscultation bilaterally Cardio Rate: regular rate Rhythm: regular rhythm Heart sounds: Normal, physiologic split S2 sound present Peripheral pulses: radial pulses present and posterior tibial pulses present GI Inspection: No distended, No Abdominal panniculus present, Yes obesity and Yes scar Palpation (GI): Soft to palpation, nontender, no guarding, not rigid and No hepatosplenomegaly present Percussion: Yes normal to percussion Auscultation: normal bowel sounds Rectal Exam - Male: Yes deferred Abdomen image: 2 1. surgical scar 2. drain scars 3. Skin General skin exam: no rashes or lesions noted, turgor normal, skin not dry, no jaundice, No spider nevi and no striae Rashes: no rashes Nails: normal Neuro General: oriented to person, oriented to place and oriented to time Cranial nerves: Yes Equal, round and reactive pupils present and Yes Normal hearing present Speech: No Abnormal speech present Extrem General: Yes normal to inspection, No clubbing, No cyanosis and No edema Psych Appearance: grossly normal and well kempt Mental Status: mental status grossly normal Speech and movement: Normal speech and movement present Affect: normal affect Attitude: cooperative Thought process: Normal thought process present and not confabulating Thought content: Normal thought content present Insight: Good insight present (Psych) Judgement: Good judgement present (Psych) Assessment & Plan Assessment & Plan (1) Pre-op examination: Code(s): Z01.818 - Encounter for other preprocedural examination Category: Medical (2) ROE (obstructive sleep apnea): Code(s): G47.33 - Obstructive sleep apnea (adult) (pediatric) Category: Medical (3) Ischemic cardiomyopathy: Code(s): I25.5 - Ischemic cardiomyopathy Category: Medical (4) Chronic systolic (congestive) heart failure: Code(s): I50.22 - Chronic systolic (congestive) heart failure Category: Medical (5) ICD (implantable cardioverter-defibrillator) in place: Comment: Soluble Systems single chamber Code(s): Z95.810 - Presence of automatic (implantable) cardiac defibrillator Category: Medical (6) Cholelithiasis: Code(s): K80.20 - Calculus of gallbladder without cholecystitis without obstruction Category: Medical Plan Palestinian # Sophie Live This is his second colonoscopy, 1st was in [place] and was normal. He asks about EGD but has absolutely no sx so I expalin this is not routinely done for screening. His heart condition is well controlled as is his ROE and asthma. He denies any upper GI problems and bowel problems. He says he will be having a cholecystectomy soon, but denies any sx. He had some trouble with visual hallucinations after the anesthesia for his CABG, no problems with colonoscopies. No ID problems. There is no known FHX of CRC or polyps. Orders: Orders 2 Colonoscopy - GI Use Only Today Z01.818 - Encounter for other preprocedural examination Medications: New 2 peg 3350-electrolytes 236-22.74-6.74 -5.86 gram (Golytely) until fecal effluent is clear; do not exceed a total volume of 2,000 mL 240 mL PO Q10M 4,000 mL 0RF 1 day Z12.11 - Encounter for screening for malignant neoplasm of colon bisacodyl (Dulcolax (bisacodyl)) 10 mg (2 x 5 mg) PO BEDTIME 4 tabs 0RF 2 days Coding Level of Care Code New Pt Level 3 (44209) Diagnoses Pre-op examination Z01.818 ROE (obstructive sleep apnea) G47.33 Ischemic cardiomyopathy I25.5 Chronic systolic (congestive) heart failure I50.22 ICD (implantable cardioverter-defibrillator) in place Z95.810 Cholelithiasis K80.20
[2024-12-08 13:48] VITALS: BP 113/56; BMI 29.3
--- OUTSIDE RECORDS SUMMARY | 2024-12-08 14:36 | XMS_ITS | Clinical Summary ---
Author Organization [facility] Address [address] [place] [address] [address] [place] [address] Phone Care Team Providers Care Material Damage Adjuster Name Role Phone Sophie Enrique MD Primary Care Provider [phone] Allergies Active Allergy Reactions Criticality Noted Date [...] mg/dl PVNMA 08/08/2020 us Rtama Conversion LAB [id number] LICITED RESULTS Final Result PVNMA from Last 3 Months or Most Recently Relevant to Health Maintenance Insurance [facility] ([id number]) [facility] ([id number]) Care Teams Material Damage Adjuster Relationship Specialty Start Date End Date Sophie Enrique MD [address] [place] [address] PCP - General Internal Medicine 01/19/21
--- OUTSIDE RECORDS SUMMARY | 2024-12-08 14:36 | XMS_ITS | Clinical Summary ---
Author Organization [facility] Address [address] [place] [address] Care Team Providers Care Transformation Consultant Name Role Phone Ani Sebastian Primary Care Provider [phone] Source Comments PLEASE NOTE, if this patient [...] aspirin 81 mg EC tabletIndications :History of CA (myocardial infarction),CAD (coronary artery disease) Take 1 Tab by mouth once daily. 30 Tab 4 4 Active blood-glucose meter monitoring kitIndications:DM (diabetes mellitus) ([facility]) as needed for blood glucose monitoring. [...] (GLUCOPHAGE) 1,000 mg tabletIndications :DM (diabetes mellitus) ([facility]) Take 1 Tab by mouth 2 [...] diagnostic (FREESTYLE TEST) stripsIndications :DM (diabetes mellitus) ([facility]) Use bid and prn. Dx: 250.02 100 Each 3 4 Active lancetsIndication s:DM (diabetes mellitus) ([facility]) Freestyle freedom lite. Use bid and prn. Dx: 250.02 100 Each 3 4 Active BD INSULIN PEN NEEDLE UF 31 X 5/16 USE FOUR TIMES DAILY. 150 Each 3 4 Active insulin glargine (LANTUS SOLOSTAR PEN) 100 unit/mL (3 mL) injectionIndicati ons:DM (diabetes mellitus) ([facility]) Inject 50 Units into the skin once daily. 10 Each 3 4 Active HUMALOG KWIKPEN 100 unit/mL injection INJECT VIA SLIDING SCALE THREE TIMES DAILY WITH MEALS. MAX 60 UNITS PER DAY 15 mL 11 4 Active Active Problems Problem Noted Date Diagnosed Date Hypomagnesemia 12/07/2013 Overview (12/07/2013): = 1.6 on 12/02/13 Dizziness 12/07/2013 Overview (12/07/2013): Likely due BPPV DM (diabetes mellitus) ([facility]) 08/07/2013 HTN (hypertension) 08/07/2013 GERD (gastroesophageal reflux disease) 4 Hyperlipidemia 08/07/2013 History of CA (myocardial infarction) 08/07/2013 Overview (08/07/2013): 2005 CAD [...] Treatment Not on file [place] Care Teams Transformation Consultant Relationship Specialty Start Date End Date Ani Sebastian PA [address] [place] [address] PCP - General Internal Medicine 08/07/13
== END 2024-12-08 14:22 | disposition home or self-care (01) ==
LOC: HO.HGI 13:20
PROVIDERS: PCP Internal Medicine; Visit Provider Nurse Practitioner
DX: Z01.818 Encounter for other preprocedural examination (principal); Z12.11 Encounter for screening for malignant neoplasm of colon
CPT/HCPCS: 99024

== ENCOUNTER → 2024-12-08 13:19 | Outpatient (BNVA) | payer OTHER, SELFPAY | PROVIDERS: PCP Internal Medicine; Visit Provider Nurse Practitioner | DX: Z01.818 Encounter for other preprocedural examination (principal); I25.5 Ischemic cardiomyopathy; I50.22 Chronic systolic (congestive) heart failure; G47.33 Obstructive sleep apnea (adult) (pediatric); K80.20 Calculus of gallbladder without cholecystitis without obstruction; Z95.810 Presence of automatic (implantable) cardiac defibrillator | CPT/HCPCS: 99212 ==

== ENCOUNTER 2024-12-09 15:06 | Outpatient (AMB) | payer OTHER, SELFPAY ==
[2024-12-09 15:08] VITALS: BP 122/70; BMI 29.6
--- NOTE | 2024-12-09 15:08 | MHC.PC.OV ---
Vital Signs 12/09/24 15:08 Height 5 ft 7 in Weight 189 lb BMI 29.6 BP 122/70 Blood Pressure Location Lt brachial Position Sitting Intake Visit Reasons: dm Intake Note: Patient here for a follow up DM Vehicle Return Associate Required: No Accompanied by: Self / Same As Patient Allergies Penicillins Allergy (Intermediate, Verified 12/09/24 15:29) ITCHING metformin Adverse Reaction (Intermediate, Verified 12/09/24 15:29) renal function changes Medication List - Last Reconciled 12/09/24 by Sophie Fulton MD [adult diapers pull-ups Use 8 times per day] amlodipine 5 mg PO DAILY 90 days aspirin (Enteric Coated Aspirin) 81 mg PO DAILY bisacodyl (Dulcolax (bisacodyl)) 10 mg (2 x 5 mg) PO BEDTIME 2 days blood sugar diagnostic (FreeStyle Lite Strips) As directed 4 times a day blood-glucose meter (FreeStyle Lite Meter kit) As directed blood-glucose sensor (FreeStyle Manjit 3 Sensor device) As directed blood-glucose,executive director contract shop,cont (FreeStyle Manjit 3 [place]) As directed cholecalciferol (vitamin D3) 50 mcg PO DAILY 90 days CPAP (CPAP Machine/Device) As directed empagliflozin (Jardiance) 10 mg PO DAILY 30 days famotidine 20 mg PO BEDTIME 90 days wdpzateltcl-anzfjjamp-txlchjrg 100-62.5-25 mcg (Trelegy Ellipta) 1 inh inhalation DAILY 28 days furosemide 20 mg PO DAILY 90 days galantamine ER 8 mg PO DAILY insulin aspart U-100 (Novolog FlexPen U-100 Insulin aspart) 20 units (0.2 mL) subcut DAILY insulin degludec (Tresiba FlexTouch U-200 insulin) 40 units (0.2 mL) subcut BEDTIME 90 days latex gloves (Latex Gloves, Large) Use 8 pairs per day losartan 25 mg PO DAILY 90 days meclizine 12.5 mg PO Q12H PRN 15 days metoprolol succinate ER 100 mg PO DAILY peg 3350-electrolytes 236-22.74-6.74 -5.86 gram (Golytely) 240 mL PO Q10M 1 day pen needle, diabetic 4 times a day As directed [personal wipes Use 8 per day prn] rosuvastatin 40 mg PO DAILY sodium zirconium cyclosilicate (Lokelma) 5 grams PO DAILY 11 days underpads (Bed Underpads) Use 5 pads per day Ventolin HFA 90 mcg/actuation (albuterol sulfate) 2 puffs PO Q6H PRN NS Tobacco use date assessed: 11/25/24 Fall risk assessment: No Falls in past year Last assessed Fall Risk: 12/09/24 Dental Screening Dental Screen Date: 11/25/24 HPI HPI Comments History of Present Illness Details The patient is a 74-year-old male presenting for chronic condition management. He exhibits a weight increase of two pounds over the last day. A diagnostic echocardiogram shows ejection fraction range between 40-45%, related to heart failure. Diagnosed with Diabetes Mellitus, his A1c previously recorded 9.8. His current glucose reading is 75. Additionally, Stage 3 Chronic Kidney Disease is diagnosed with an improved GFR from an initial 34 to now 56. Hyperlipidemia persists with an LDL reading at 143, over the target threshold of 70. He details challenges renewing rosuvastatin for lipid control. Sleep apnea is managed with CPAP adherence, and no acute respiratory symptoms are identified. For neurological concerns, recent evaluation via neurology excludes Parkinson's, affirming essential tremor. An upcoming surgical assessment for gallbladder calculi is expected. The patient's care is under continuous specialist evaluations including consultations for endocrinology and cardiology. [facility] Medical History (Updated 12/09/24 @ 20:05 by Sophie Fulton MD) Chronic kidney disease Foot abrasion, infected Type 2 diabetes mellitus Paresthesia Lumbar pain Sleep apnea Abnormal laboratory test Bibasilar crackles Encounter for interrogation of cardiac defibrillator HTN (hypertension) ROE (obstructive sleep apnea) CHF (congestive heart failure) Physical exam COVID-19 Bronchitis [id number] syndrome Reactive airway disease Hospital discharge follow-up Bronchitis URI (upper respiratory infection) Tremors of nervous system Carpal tunnel syndrome Screen for colon cancer Physical exam Cellulitis Left leg swelling Visual hallucination Cough Acute respiratory disease Influenza A Right upper quadrant abdominal pain Hallucinations Hypoglycemia due to type 2 diabetes mellitus Chronic heart failure with preserved ejection fraction (HFpEF) Cardiomyopathy Acute on chronic systolic (congestive) heart failure Defibrillator discharge ROE (obstructive sleep apnea) Hypothyroidism Obesity due to excess calories ROE on CPAP Ischemic cardiomyopathy Atherosclerotic cardiovascular disease GERD (gastroesophageal reflux disease) Hypothyroidism Type 2 diabetes mellitus with hyperglycemia, with long-term current use of insulin Essential hypertension Chronic systolic (congestive) heart failure ICD (implantable cardioverter-defibrillator) in place CAD (coronary artery disease) Hyperlipidemia LDL goal <70 Dyspnea Insomnia Delusion of persecution Surgical History Epidermal inclusion cyst Lump of skin Hx of CABG (~2019) Status post aorto-coronary artery bypass graft Postop check H/O inguinal hernia repair History of tooth extraction History of open heart surgery History of bilateral cataract extraction Family History Father No problems noted. Mother CVD (cardiovascular disease) Social History Household Members: Spouse Housing: House Do you presently have visiting nurse or other home services: Yes (every 15 days) Alcohol intake: former Patient Tobacco Use Status: Former Tobacco user e-Cigarette/Vaping Use: Never Used Second Hand Smoke Exposure: Yes service: No Current occupational status: retired Cognitive needs: Yes Hearing needs: No Vision needs: Yes Questionnaire PHQ-9 Over the last 2 weeks, how often have you been bothered by any of the following problems? 1. Little interest or pleasure in doing things: not at all 2. Feeling down, depressed, or hopeless: not at all 3. Trouble falling or staying asleep, or sleeping too much: not at all 4. Feeling tired or having little energy: not at all 5. Poor appetite or overeating: not at all 6. Feeling bad about yourself - or that you are a failure or have let yourself or your family down: not at all 7. Trouble concentrating on things, such as reading the newspaper or watching television: not at all 8. Moving or speaking so slowly that other people could have noticed. Or the opposite - being so fidgety or restless that you have been moving around a lot more than usual: not at all 9. Thoughts that you would be better off or of hurting yourself in some way: not at all Total score: 0 Depression Screening Interpretation: Negative Depression Screening Done: Yes 23118 - PHQ-9 Billing: Yes Source: Developed by Drs. Godwin Street, Luisa B.WLawrence Howard and colleagues, with an educational sonia from [employer]. Thrive Questionnaire Date Thrive assessed: 11/25/24 I am a: Patient What is your living situation today?: I have a steady place to live Within the past 12 months, did the food you bought not last and you didn't have the money to get more?: I choose not to answer this question Within the past 12 months, did you worry whether your food would run out before you got money to buy more?: I choose not to answer this question Do you have trouble paying for medicines?: I choose not to answer this question Do you have trouble getting transportation to medical appointments?: I choose not to answer this question Do you have trouble paying your heating and electricity bill?: I choose not to answer this question Do you have trouble taking care of your child, family member or friend?: I choose not to answer this question Do you have trouble with day-to-day activities such as bathing, preparing meals, shopping, managing finances, etc.?: I choose not to answer this question Are you currently unemployed and looking for a job?: I choose not to answer this question Are you interested in more education?: I choose not to answer this question Please select the resources that you would like help with: None Currently or been in a relationship where the following occur: No concerns reported THRIVE Score: 0 AUDIT C Alcohol Use Questionnaire (AUDIT-C) 1. How often do you have a drink containing alcohol?: Never Total Score: 0 Score Reviewed/Action Taken: No RENNY-7 AMB Questionnaire RENNY-7 Date RENNY - 7 assessed: 11/25/24 Feeling nervous, anxious, or on edge: 0 = Not at all Not being able to stop or control worryin = Not at all Worrying too much about different things: 0 = Not at all Trouble relaxin = Not at all Being so restless that it is hard to sit still: 0 = Not at all Becoming easily annoyed or irritable: 0 = Not at all Feeling afraid as if something awful might happen: 0 = Not at all Total RENNY-7 score (0-4 normal; 5-9 mild; 10-14 moderate; 15-21 severe): 0 Source: Developed by Drs. Godwin Street, Lawrence Hammond and colleagues, with an educational sonia from [employer]. RENNY-7 Assessment Billing RENNY-7 Assessment Tool: RENNY-7 Assessment 56902 Review of Systems Const All systems reviewed & are unremarkable except as noted in HPI and below Card Denies chest pain at rest, Denies chest pain with activity, Denies edema, Denies irregular heart rhythm, Denies claudication, Denies dyspnea, Denies dyspnea on exertion, Denies orthopnea, Denies paroxysmal nocturnal dyspnea and Denies slow heart rate Resp Denies cough, Denies dyspnea and Denies dyspnea on exertion Physical exam (Primary Care) Vital Signs: Last Vital Signs BP 122/70 12/09/24 15:08 BMI result Body Mass Index 29.6 Tobacco/Smoking Status: Tobacco use Status Tobacco use date assessed 11/25/24 12/09/24 15:14 Patient Tobacco Use Status Former Tobacco user 12/09/24 15:14 e-Cigarette/Vaping Use Never Used 12/09/24 15:14 PHQ-9: PHQ-9 Score PHQ-9: Total score 0 12/09/24 15:31 Depression Screening Interpretation: Negative Thrive Assessment: Date of Thrive Assessment Date Thrive assessed 11/25/24 12/09/24 15:14 Currently or been in a relationship where the following occur: No concerns reported Resp Effort & Inspection: normal respiratory effort Auscultation: clear to auscultation bilaterally Cardio Jugular venous distension: no JVD Rate: regular rate Rhythm: regular rhythm Heart sounds: S1 normal heart sound present and S2 normal heart sound present Extrem General: Yes full ROM Coding Level of Care Code Est Pt Level 4 (34180) Complex EM visit Add On G2211 Diagnoses Stage 3b chronic kidney disease N18.32 Chronic kidney disease stage 3 subtype: stage 3b (GFR 30-44) Essential hypertension I10 Hypothyroidism E03.9 Type 2 diabetes mellitus with hyperglycemia, with long-term current use of insulin E11.65; Z79.4 Hyperlipidemia LDL goal <70 E78.5 Chronic systolic (congestive) heart failure I50.22 Additional Codes RENNY-7 Assessment Billing - RENNY-7 Assessment Tool: RENNY-7 Assessment 99271 ([id number]) PHQ-9 - 24368 - PHQ-9 Billing: Yes ([id number]) Time Spent (min) 23 Assessment & Plan Assessment & Plan (1) CKD (chronic kidney disease) stage 3, GFR 30-59 ml/min: Code(s): N18.30 - Chronic kidney disease, stage 3 unspecified Category: Medical Qualifiers: Chronic kidney disease stage 3 subtype: stage 3b (GFR 30-44) Qualified Code(s): N18.32 - Chronic kidney disease, stage 3b (2) Essential hypertension: Code(s): I10 - Essential (primary) hypertension Category: Medical (3) Hypothyroidism: Code(s): E03.9 - Hypothyroidism, unspecified Category: Medical (4) Type 2 diabetes mellitus with hyperglycemia, with long-term current use of insulin: Code(s): E11.65 - Type 2 diabetes mellitus with hyperglycemia; Z79.4 - prison (current) use of insulin Category: Medical (5) Hyperlipidemia LDL goal <70: Code(s): E78.5 - Hyperlipidemia, unspecified Category: Medical (6) Chronic systolic (congestive) heart failure: Code(s): I50.22 - Chronic systolic (congestive) heart failure Category: Medical Plan The ongoing management for the patient's heart failure includes strict medication adherence with increased Furosemide dosage to address fluid retention. We aim to maintain stable glucose for diabetes with continued current therapies and plans for future A1c reassessment. For lipid management, ensuring the continuation of rosuvastatin through direct renewal of prescriptions is a priority. Obstructive sleep apnea is managed with ongoing CPAP use and specialist follow-ups. Surgical evaluation is planned for gallbladder calculi removal. Tremors management continues under neurologic guidance with future consults scheduled. Improved renal function and chronic condition follow-up will help in further assessing kidney management. Future care includes scheduled specialist appointments for a well-rounded health approach. Patient was informed and verbally consented to the use of an ambient scribe for clinic note documentation during this visit. I discussed the importance of continued medication compliance to manage his heart failure and diabetes effectively. For heart failure, doubling Furosemide dosing reduces potential fluid overload. I emphasized that diabetes and lipid levels are targets, reinforcing need for repeat A1c lab work and consistent insulin therapy. The patient's lipid management remains significant due to elevated LDL needing rosuvastatin renewal. I assured oversight with future lab evaluations to monitor cholesterol improvement. Scheduled surgical consultation for gallbladder removal remains pivotal, alongside active neurologic input for tremor management. Follow-up appointments with specialists showcase a need for interdisciplinary coordination ensuring comprehensive care. Orders: Orders Microalbumin, Random (w Creat) 4 Months R80.9 - Proteinuria, unspecified Vitamin D 25-OH Total 4 Months E55.9 - Vitamin D deficiency, unspecified Comprehensive Met. Panel 4 Months E11.65 - Type 2 diabetes mellitus with hyperglycemia, Z79.4 - intermediate frame tender (current) use of insulin NT-proBNP 4 Months I50.22 - Chronic systolic (congestive) heart failure Complete Blood Count Auto Diff 4 Months D64.9 - Anemia, unspecified Lipid Panel 4 Months E78.5 - Hyperlipidemia, unspecified IRON PROFILE 4 Months D64.9 - Anemia, unspecified Medications: Refilled rosuvastatin 40 mg PO DAILY 90 tabs 1RF E78.5 - Hyperlipidemia, unspecified Discontinued sodium zirconium cyclosilicate (Lokelma) Discontinued Reason: Patient Completed Course 5 grams PO DAILY 11 days 11 ea 0RF meclizine Discontinued Reason: Patient Completed Course 12.5 mg PO Q12H 15 days PRN 30 tabs 0RF for dizziness Patient Instructions: - Increase Furosemide to 40mg until next visit for fluid management. - Continue current diabetes medications. - Monitor daily glucose levels and report significant changes. - Await next A1c lab results for continued diabetes monitoring. - Follow up to brain picker rosuvastatin prescription. - Utilize CPAP machine nightly as discussed. - Prepare for upcoming gallbladder surgery consultation. - Attend scheduled appointments with cardiology, endocrinology, and neurology.
--- OUTSIDE RECORDS SUMMARY | 2024-12-09 16:08 | XMS_ITS | Clinical Summary ---
Author Organization [facility] Address [address] [place] [address] Care Team Providers Care Resistor Testing Machine Operator Name Role Phone Ani Sebastian Primary Care Provider [phone]- [phone] Source Comments PLEASE NOTE, if this patient [...] Active blood-glucose meter monitoring kitIndications:DM (diabetes mellitus) ([facility]) as needed for blood glucose [...] (GLUCOPHAGE) 1,000 mg tabletIndications :DM (diabetes mellitus) ([facility]) Take 1 Tab by mouth [...] diagnostic (FREESTYLE TEST) stripsIndications :DM (diabetes mellitus) ([facility]) Use bid and prn. Dx: 250.02 100 Each 3 4 Active lancetsIndication s:DM (diabetes mellitus) ([facility]) Freestyle freedom lite. Use bid and prn. Dx: 250.02 100 Each 3 4 Active BD INSULIN PEN NEEDLE UF 31 X 5/16 USE FOUR TIMES DAILY. 150 Each 3 4 Active insulin glargine (LANTUS SOLOSTAR PEN) 100 unit/mL (3 mL) injectionIndicati ons:DM (diabetes mellitus) ([facility]) Inject 50 Units into the [...] (12/07/2013): Likely due BPPV DM (diabetes mellitus) ([facility]) 08/07/2013 HTN (hypertension) 08/07/2013 GERD [...] Treatment Not on file [place] Care Teams Resistor Testing Machine Operator Relationship Specialty Start Date End Date Ani Sebastian PA [address] [place] [address] PCP - General Internal Medicine 08/07/13
== END 2024-12-09 15:40 | disposition home or self-care (01) ==
LOC: HO.HMCH 15:07
PROVIDERS: PCP Internal Medicine; Visit Provider Internal Medicine
DX: I12.9 Hypertensive chronic kidney disease with stage 1 through stage 4 chronic kidney disease, or unspecified chronic kidney disease (principal); N18.32 Chronic kidney disease, stage 3b; E11.65 Type 2 diabetes mellitus with hyperglycemia; Z79.4 Long term (current) use of insulin; I50.22 Chronic systolic (congestive) heart failure; E03.9 Hypothyroidism, unspecified; E78.5 Hyperlipidemia, unspecified

== ENCOUNTER → 2024-12-09 15:06 | Outpatient (BNVA) | payer OTHER, SELFPAY | PROVIDERS: PCP Internal Medicine; Visit Provider Internal Medicine | DX: I13.0 Hypertensive heart and chronic kidney disease with heart failure and stage 1 through stage 4 chronic kidney disease, or unspecified chronic kidney disease (principal); E11.22 Type 2 diabetes mellitus with diabetic chronic kidney disease; N18.32 Chronic kidney disease, stage 3b; I50.22 Chronic systolic (congestive) heart failure; E03.9 Hypothyroidism, unspecified; E11.65 Type 2 diabetes mellitus with hyperglycemia; E78.5 Hyperlipidemia, unspecified; Z79.4 Long term (current) use of insulin | CPT/HCPCS: 96127; 99212 ==

== ENCOUNTER 2024-12-10 14:11 | Outpatient (AMB) | payer OTHER, SELFPAY ==
--- NOTE | 2024-12-10 14:12 | A.OFFVIS_ITS ---
Vital Signs 12/10/24 14:19 Height 5 ft 7 in Weight 190 lb 14.725 oz BMI 29.9 BP 134/66 Blood Pressure Location Rt brachial Position Sitting Pulse 72 Intake Visit Reasons: Calculus of gallbladder Intake Note: Patient referred by pcp Dr. True Fulton for Calculus of gallbladder. Patient c/o: RUQ pain episode 3wks ago while vacationing in [place]. 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 He apparently was in [place] last October and he had undergone drainage of his gallbladder for a presumed infection. He was told that he would need his gallbladder removed. He said he did not want this to be done in [place] so he came back here [place] the [place] He went to [facility] last month in the ER because of that history. However, a CAT scan done at that time did not reveal any pathology in the gallbladder or abdomen He was therefore referred to me by his primary care physician He currently denies right upper quadrant pain. He says he has good oral intake. He denies GI complaints He has a history of coronary artery disease and had triple bypass in [place] about 3 years ago. He also has an AICD in place on the left chest. [facility] Medical History Chronic kidney disease Foot abrasion, infected Type 2 diabetes mellitus Paresthesia Lumbar pain Sleep apnea Abnormal laboratory test Bibasilar crackles Encounter for interrogation of cardiac defibrillator HTN (hypertension) ROE (obstructive sleep apnea) CHF (congestive heart failure) Physical exam COVID-19 Bronchitis [id number] syndrome Reactive airway disease Hospital discharge follow-up Bronchitis URI (upper respiratory infection) Tremors of nervous system Carpal tunnel syndrome Screen for colon cancer Physical exam Cellulitis Left leg swelling Visual hallucination Cough Acute respiratory disease Influenza A Right upper quadrant abdominal pain Hallucinations Hypoglycemia due to type 2 diabetes mellitus Chronic heart failure with preserved ejection fraction (HFpEF) Cardiomyopathy Acute on chronic systolic (congestive) heart failure Defibrillator discharge ROE (obstructive sleep apnea) Hypothyroidism Obesity due to excess calories ROE on CPAP Ischemic cardiomyopathy Atherosclerotic cardiovascular disease GERD (gastroesophageal reflux disease) Hypothyroidism Type 2 diabetes mellitus with hyperglycemia, with long-term current use of insulin Essential hypertension Chronic systolic (congestive) heart failure ICD (implantable cardioverter-defibrillator) in place CAD (coronary artery disease) Hyperlipidemia LDL goal <70 Dyspnea Insomnia Delusion of persecution Surgical History Epidermal inclusion cyst Lump of skin Hx of CABG (~2019) Status post aorto-coronary artery bypass graft Postop check H/O inguinal hernia repair History of tooth extraction History of open heart surgery History of bilateral cataract extraction Family History Father No problems noted. Mother CVD (cardiovascular disease) Social History Household Members: Spouse Housing: House Do you presently have visiting nurse or other home services: Yes (every 15 days) Alcohol intake: former Patient Tobacco Use Status: Former Tobacco user e-Cigarette/Vaping Use: Never Used Second Hand Smoke Exposure: Yes service: No Current occupational status: retired Cognitive needs: Yes Hearing needs: No Vision needs: Yes Review of Systems Const Denies chills and Denies fever(s) Card Denies chest pain, Denies dyspnea and Denies dyspnea on exertion Resp Denies cough, Denies dyspnea and Denies dyspnea on exertion GI Denies hematochezia and Denies change in bowel habits Denies hematuria and Denies difficulty urinating Musc Reports abnormal gait, Denies back pain and Reports limited range of motion Neuro Reports abnormal gait, Denies focal weakness and Denies convulsions Psych Denies depression and Denies mood swings Physical Exam Const Other: Seems to walk with an unsteady gait General: comfortable and no acute distress Orientation/consciousness: patient oriented x3 Neck Neck: Yes no lymphadenopathy Resp Auscultation: clear to auscultation bilaterally Cardio Rhythm: regular rhythm GI Other: No Garner's sign Palpation (GI): Soft to palpation, nontender and no guarding Neuro General: patient oriented x3 Assessment & Plan Assessment & Plan (1) Cholelithiasis: Code(s): K80.20 - Calculus of gallbladder without cholecystitis without obstruction Category: Medical Plan: 74-year-old male with multiple medical problems including coronary disease, CHF, cardiomyopathy, diabetes, beginning Parkinson's disease, obstructive sleep apnea referred to me because of a question of gallbladder disease. He apparently had a drainage of the gallbladder done in [place] in October,. He was told that he needed to have cholecystectomy. [place] He had a CAT scan done in [facility] last month. However, this does not show any gallbladder disease at all no any other intra- abdominal pathology He denies any right upper quadrant pain I am going to order for an ultrasound to check his gallbladder. I am also going to retrieve his images from [facility] so I can review the CAT scan pictures I will see him again in the office after that. He seems to be comfortable with the plan. He does have multiple medical problems. Coding Level of Care Code New Pt Level 4 (51912) Diagnoses Cholelithiasis K80.20
[2024-12-10 14:19] VITALS: BP 134/66; PULSE 72; BMI 29.9
--- OUTSIDE RECORDS SUMMARY | 2024-12-10 15:05 | XMS_ITS | Clinical Summary ---
Author Organization [facility] Address [address] [place] [address] [address] [place] [address] Phone Care Team Providers Care Lay Out Carpenter Name Role Phone Sophie Enrique MD Primary Care Provider [phone] Allergies Active Allergy Reactions Criticality Noted Date [...] mg/dl PVNMA 08/08/2020 us Rtama Conversion LAB [id number] LICITED RESULTS Final Result PVNMA from Last 3 Months or Most Recently Relevant to Health Maintenance Insurance [facility] ([id number]) [facility] ([id number]) Care Teams Lay Out Carpenter Relationship Specialty Start Date End Date Sophie Enrique MD [address] [place] [address] PCP - General Internal Medicine 01/19/21
== END 2024-12-10 14:41 | disposition home or self-care (01) ==
LOC: HO.HGS 14:12
PROVIDERS: PCP Internal Medicine; Visit Provider Surgery
DX: K80.20 Calculus of gallbladder without cholecystitis without obstruction (principal)
CPT/HCPCS: 99204

== ENCOUNTER → 2024-12-10 14:11 | Outpatient (BNVA) | payer OTHER, SELFPAY | PROVIDERS: PCP Internal Medicine; Visit Provider Surgery | DX: K80.20 Calculus of gallbladder without cholecystitis without obstruction (principal) | CPT/HCPCS: 99202 ==

== ENCOUNTER 2025-01-25 13:45 | Outpatient (AMB) | payer OTHER, SELFPAY ==
--- NOTE | 2025-01-25 13:47 | MHC.OFFVIS ---
Vital Signs 01/25/25 13:48 Height 5 ft 7 in Weight 192 lb 14.472 oz BMI 30.2 BP 118/64 Blood Pressure Location Rt brachial Position Sitting Pulse 72 Pulse Source Pulse Oximeter Pulse Oximetry (%) 92 Oxygen Delivery Method Room Air Intake Visit Reasons: Obstructive sleep apnea Allergies Penicillins Allergy (Intermediate, Verified 01/25/25 13:50) ITCHING metformin Adverse Reaction (Intermediate, Verified 01/25/25 13:50) renal function changes HPI Comments Details: The patient is a 74-year-old gentleman with a known history of CAD status post surgery in addition to obstructive sleep apnea. His last sleep study occurred in [place] back in 2018 when he had a in-lab study demonstrating an AHI of 28 with hypoxia down to 75%. The patient is placed on CPAP in the CPAP therapy was very effective beneficial. However, the CPAP malfunction and is no longer working. The patient is been struggling with significant untreated obstructive sleep apnea. His is concerned because he stops breathing at nighttime and she needs to wake him up. He has significant snoring and also wakes him up with shortness of breath. He does have headaches at times. I am concerned because of increased cardiovascular risk. This point the patient needs to get another CPAP is set up with the DME company [facility]. In the meantime the patient also complains of dyspnea on exertion. Moderate severity. He has been deconditioned and also has gained weight. He also does likely contributing. He has had multiple spirometries demonstrating some degree of decrease in the forced vital capacity. On examination appears to have some crepitations as well as crackles. He denies any significant exposure to any fumes or toxins. 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 Denies any exposure to any mold or farm animals. 10/15/2022 the patient is here for pulmonary follow-up visit. He continues to have significant daytime drowsiness. His Conconully score continues to be elevated 06/06/2024. He is frustrated that he cannot use CPAP. The patient does have significant cardiovascular risk factors. We had him have a repeat sleep study demonstrating severe sleep apnea with an AHI of 37 with significant hypoxia. I am concerned that he is having untreated severe sleep apnea and this could result in worse cardiovascular outcomes. The patient needs to be set up with a new DME company and get re-initiated with CPAP. Therefore will send a script to a local DME company. In the meantime he continues to use his respiratory medicine with good effect. Denies any chest tightness or wheezing. He has not had to use his rescue inhaler. No recent imaging studies to review. Will send a script to his [employer] company for a new CPAP and ultimately have him return in 3-4 months with the CPAP in order to review the results and download. 02/11/2023 the patient is here for a pulmonary follow-up visit. He has lost about 20 lb. The patient has not been using his CPAP regularly. We did review his sleep study again demonstrating severe sleep apnea. The patient understands that he needs to use the machine specially with his cardiovascular risk factors. His mask is to type rate now he does not like it. Will go ahead and request a different mask for him. I did provide him with a medium F30 mask with the hope that he can tolerated better. He is complaining of neuropathy pains in his upper and lower extremities. He had been using trazodone for sleep. But then he was prescribed gabapentin which I believe will be a better agent. Therefore he can stop the trazodone may continue the gabapentin. The patient did not bring his CPAP in. He will bring it to the next visit. From a respiratory status the patient seems to be doing well at the current respiratory regimen. He has not required any prednisone. He does not use his rescue inhaler often. 06/24/2023 the patient is here for a pulmonary follow-up visit. The patient is doing a lot better. He continues to lose weight. He has been using the CPAP now with a nasal mask. He has been tolerating it much better. I did download his machine. It appears that he is using it 83% of the time in more than 4 hours a night. The patient's set up APAP with a maximum pressure of 14 cm. Unfortunately his AHI continues be elevated close to 10. appears to be mainly apneic episodes so therefore will increase the maximum pressure to 16 cm water. The patient may need additional pressures. Still he will try this pressure And see if his effective increase it accordingly. If he continues to have an elevated AHI even at maximum PAP pressures then we need to further discuss the possibility of a BiPAP. From a respiratory status is doing well on his current medicines. He continues to monitor closely his p.o. intake and watching closely his sodium intake. He is taking care of himself and making significant lifestyle changes to improve his overall health. He is already seeing some drastic improvement with some weight loss. He was briefly admitted to the hospital an treated for CHF. 12/16/2023 the patient is here for a pulmonary follow-up visit. Overall the patient has been doing well. He has been using the CPAP every night with a nasal mask. He did get a download from the CPAP and his AHI is down 3.5. His current CPAP settings are 12 to 18 cm. Sometimes he feels the pressure is too low. Of switch him over to a fixed CPAP with a pressure of 15 cm see if we can adjusted that way. I did also add a ramp of 13 cm to start with. If he has any issues with that he will call and will adjust the CPAP online. For some reason his DME company has not been able to get supplies. He is registered in does have a machine that some working order. I will submit another prescription to his DME company [employer] in order for him to start getting supplies. I did provide him with another new sample of a nasal mask in order to continue to provide him with effective equipment in order for him to be able to use it. His hose is broken but he put tape on it therefore he still can use it some. I am hopeful that he can get supplies from his DME company soon. From a respiratory status the patient is doing well has not had any exacerbations. 04/20/2024 the patient is here for a pulmonary follow-up visit. The patient is still doing fairly well. He is trying to use his CPAP as much as possible. He finds that the CPAP has been affecting beneficial. However, he has not been able to get supplies with the DME company. I did provide him with a mask the last visit. Although still having air leakage. Therefore, I did have a F20 AirTouch foam mask medium in he did try anything to fit well. Therefore will request a from his [employer] company. In addition to that his machine is now older than 5 years. Has broken buttons. Appears to be broken. Will request a replacement machine from [employer] this time. The patient also continues uses respiratory therapy with good effect. Has not had any recent flare-ups. Otherwise he is doing well. Will continue with current respiratory therapy. 01/25/2025 the patient is here for a pulmonary follow-up visit. The patient is having a hard time with his sleep. His [employer] company is no longer given his supplies. He is no longer active with the [employer] company. His machine was taken away he had an old machine that he could use. He struggles when he does not use his CPAP. His Conconully score is elevated 07/28. Will go ahead and request a repeat sleep study for him in order to get him reactivated with the DME company in order for him to be able to treat the sleep apnea effectively specially with his increased cardiovascular risk. Patient also complained of significant abdominal discomfort while coming back from [place]. He was diagnosed with cholecystitis I believe at [facility]. He also was diagnosed with pneumonia. He was treated however did not feel like he could handle surgery at that time so therefore the cholecystectomy surgery was held. Now he is following up with surgery to see if he still needs to have surgery. Overall he is feeling better. Breathing is better overall. He is using his inhalers as prescribed. He did start Trelegy 100 which seems to be effective in beneficial. He also has a rescue inhaler. His respiratory exam is reassuring. Will plan to follow-up in 3-4 months after her sleep study in order to get him activated again and treating his sleep apnea effectively. 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 Reactive airway disease Hospital discharge follow-up Bronchitis URI (upper respiratory infection) Tremors of nervous system Carpal tunnel syndrome Screen for colon cancer Physical exam Cellulitis Left leg swelling Visual hallucination Cough Acute respiratory disease Influenza A Right upper quadrant abdominal pain Hallucinations Hypoglycemia due to type 2 diabetes mellitus Chronic heart failure with preserved ejection fraction (HFpEF) Cardiomyopathy Acute on chronic systolic (congestive) heart failure Defibrillator discharge ROE (obstructive sleep apnea) Hypothyroidism Obesity due to excess calories ROE on CPAP Ischemic cardiomyopathy Atherosclerotic cardiovascular disease GERD (gastroesophageal reflux disease) Hypothyroidism Type 2 diabetes mellitus with hyperglycemia, with long-term current use of insulin Essential hypertension Chronic systolic (congestive) heart failure ICD (implantable cardioverter-defibrillator) in place CAD (coronary artery disease) Hyperlipidemia LDL goal <70 Dyspnea Insomnia Delusion of persecution Surgical History Epidermal inclusion cyst Lump of skin Hx of CABG (~2019) Status post aorto-coronary artery bypass graft Postop check H/O inguinal hernia repair History of tooth extraction History of open heart surgery History of bilateral cataract extraction Family History Father No problems noted. Mother CVD (cardiovascular disease) Social History Household Members: Spouse Housing: House Do you presently have visiting nurse or other home services: Yes (every 15 days) Alcohol intake: former Patient Tobacco Use Status: Former Tobacco user e-Cigarette/Vaping Use: Never Used Second Hand Smoke Exposure: Yes service: No Current occupational status: retired Cognitive needs: Yes Hearing needs: No Vision needs: Yes Review of Systems Const Reports daytime sleepiness, Reports difficulty sleeping, Denies snoring and Denies stops breathing during sleep Eyes Reports no additional complaints, Denies change in vision and Denies other visual disturbances Card Denies chest pain at rest, Denies chest pain with activity, Denies edema, Denies irregular heart rhythm, Denies claudication, Denies dyspnea, Denies dyspnea on exertion, Denies orthopnea, Denies paroxysmal nocturnal dyspnea and Denies slow heart rate Resp Reports cough, Denies dyspnea, Denies dyspnea on exertion and Denies snoring GI Denies abdominal pain, Denies change in bowel habits, Denies excessive flatus, Denies nausea and Denies vomiting Musc Denies abnormal gait, Denies atrophy, Denies deformity, Denies limited range of motion and Reports tingling Skin/Breast Denies bleeding lesions, Denies changing lesions and Denies rash Neuro Denies abnormal gait, Reports tingling and Reports paresthesias Physical Exam Vital Signs: Last Vital Signs Pulse 72 01/25/25 13:48 BP 118/64 01/25/25 13:48 Pulse Ox 92 01/25/25 13:48 Oxygen Delivery Method Room Air 01/25/25 13:48 BMI result Body Mass Index 30.2 Const General: cooperative, comfortable and no acute distress Orientation/consciousness: patient oriented x3 HEENT Other: Unremarkable Neck Neck: Yes normal visual inspection Chest Chest palpation & inspection: normal inspection of the chest Resp Effort & Inspection: normal respiratory effort Auscultation: no crackles, no wheezes and diminished lung sounds Cardio Palpation: normal PMI Heart sounds: S1 normal heart sound present, S2 normal heart sound present, no gallops, no murmurs and no rubs GI Palpation (GI): Soft to palpation Back/Spine/Pelvis Other: unremarkable Skin General skin exam: no rashes or lesions noted Neuro General: patient oriented x3 Extrem General: Yes edema (1+) Psych Mental Status: mental status grossly normal Assessment & Plan Assessment & Plan (1) Reactive airway disease: Code(s): J45.909 - Unspecified asthma, uncomplicated Category: Medical Qualifiers: Asthma complication type: uncomplicated Asthma persistence: persistent Asthma severity: moderate Qualified Code(s): J45.40 - Moderate persistent asthma, uncomplicated (2) ROE (obstructive sleep apnea): Code(s): G47.33 - Obstructive sleep apnea (adult) (pediatric) Category: Medical (3) Dyspnea: Comment: Multifactorial. No significant hypoxia Code(s): R06.00 - Dyspnea, unspecified Category: Medical Qualifiers: Dyspnea type: dyspnea on exertion Qualified Code(s): R06.00 - Dyspnea, unspecified (4) ROE (obstructive sleep apnea): Code(s): G47.33 - Obstructive sleep apnea (adult) (pediatric) Category: Medical Plan In lab PSG to confirm ROE dx to re-activate with [facility] Continue short-acting beta agonist as needed Continue Symbicort twice a day stopped Gabapentin 100mg at night Diuresis as tolerated Follow-up 4-6 months Orders: Orders RT PSG in-lab sleep study Today G47.33 - Obstructive sleep apnea (adult) (pediatric) Coding Level of Care Code Est Pt Level 4 (16369) Complex EM visit Add On G2211 Diagnoses Moderate persistent reactive airway disease without complication J45.40 Asthma complication type: uncomplicated Asthma persistence: persistent Asthma severity: moderate ROE (obstructive sleep apnea) G47.33 Dyspnea on exertion R06.00 Dyspnea type: dyspnea on exertion Time Spent (min) 17
[2025-01-25 13:48] VITALS: BP 118/64; PULSE 72; O2SAT 92; BMI 30.2
--- OUTSIDE RECORDS SUMMARY | 2025-01-25 15:13 | XMS_ITS | Clinical Summary ---
Author Organization [facility] Address [address] [place] [address] Care Team Providers Care District Attorney Name Role Phone Ani Sebastian Primary Care Provider [phone] Source Comments PLEASE NOTE, if this patient [...] aspirin 81 mg EC tabletIndications :History of OK (myocardial infarction),CAD (coronary artery disease) Take 1 Tab by mouth once daily. 30 Tab 4 4 Active blood-glucose meter monitoring kitIndications:DM (diabetes mellitus) ([facility]) as needed for blood glucose [...] (GLUCOPHAGE) 1,000 mg tabletIndications :DM (diabetes mellitus) ([facility]) Take 1 Tab by mouth [...] diagnostic (FREESTYLE TEST) stripsIndications :DM (diabetes mellitus) ([facility]) Use bid and prn. Dx: 250.02 100 Each 3 4 Active lancetsIndication s:DM (diabetes mellitus) ([facility]) Freestyle freedom lite. Use bid and prn. Dx: 250.02 100 Each 3 4 Active BD INSULIN PEN NEEDLE UF 31 X 5/16 USE FOUR TIMES DAILY. 150 Each 3 4 Active insulin glargine (LANTUS SOLOSTAR PEN) 100 unit/mL (3 mL) injectionIndicati ons:DM (diabetes mellitus) ([facility]) Inject 50 Units into the [...] (12/07/2013): Likely due BPPV DM (diabetes mellitus) ([facility]) 08/07/2013 HTN (hypertension) 08/07/2013 GERD (gastroesophageal reflux disease) 4 Hyperlipidemia 08/07/2013 History of OK (myocardial infarction) 08/07/2013 Overview (08/07/2013): 2005 CAD [...] 72 02/08/2014 4:41 PM EDT Temperature 37.1 C (98.7 F) 02/08/2014 4:41 PM EDT Respiratory Rate 16 02/08/2014 4:41 PM EDT Oxygen Saturation - - Inhaled Oxygen Concentration - - Weight 89.9 kg (198 lb 1.6 oz) 02/08/2014 4:41 P M EDT Height 170.2 cm (5' 7 ) 02/08/2014 4:41 PM EDT Body Mass Index 31.03 02/08/2014 4:41 PM EDT Plan of Treatment Not on file Insurance [place] Care Teams District Attorney Relationship Specialty Start Date End Date Ani Sebastian PA [address] [place] [phone] PCP - General Internal Medicine 08/07/13
== END 2025-01-25 14:11 | disposition home or self-care (01) ==
LOC: HO.HPS 13:46
PROVIDERS: PCP Internal Medicine; Visit Provider Hospitalist
DX: J45.40 Moderate persistent asthma, uncomplicated (principal); G47.33 Obstructive sleep apnea (adult) (pediatric); R06.00 Dyspnea, unspecified
CPT/HCPCS: 99214; G2211

== ENCOUNTER → 2025-01-25 13:45 | Outpatient (BNVA) | payer OTHER, SELFPAY | PROVIDERS: PCP Internal Medicine; Visit Provider Hospitalist | DX: J45.40 Moderate persistent asthma, uncomplicated (principal); G47.33 Obstructive sleep apnea (adult) (pediatric); R06.00 Dyspnea, unspecified; Z99.89 Dependence on other enabling machines and devices | CPT/HCPCS: 99212 ==

== ENCOUNTER 2025-01-27 09:41 | Outpatient (REF) | payer OTHER, SELFPAY ==
--- NOTE | ~2025-01-27 | US_ITS ---
CLINICAL HISTORY: K80.20 - Calculus of gallbladder without cholecystitis without obstruction --- Additional Notes or Special Instructions: Question of gallstones in [place] US abdomen limited Comparison: No prior studies of any type Findings: Liver homogeneous without focal abnormality. Right lobe 14.8 cm length. Main portal vein patent with antegrade flow. Pancreas is obscured. Cholelithiasis and sludge without wall thickening. Common duct 2.7 mm diameter. Right kidney normal, 10.3 cm in length. Impression: Cholelithiasis and gallbladder sludge without wall thickening This document has been electronically signed by: Jayson Yoder MD on 01/27/2025 22:15:07
--- OUTSIDE RECORDS SUMMARY | 2025-01-27 10:53 | XMS_ITS | Clinical Summary ---
Author Organization [facility] Address [address] [place] [address] Care Team Providers Care Director Of Ancillary Services Name Role Phone Ani Sebastian Primary Care Provider [phone] Source Comments PLEASE NOTE, if this patient [...] aspirin 81 mg EC tabletIndications :History of MA (myocardial infarction),CAD (coronary artery disease) Take 1 Tab by mouth once daily. 30 Tab 4 4 Active blood-glucose meter monitoring kitIndications:DM (diabetes mellitus) ([facility]) as needed for blood glucose monitoring. 1 [...] 1,000 mg tabletIndications :DM (diabetes mellitus) ([facility]) Take 1 Tab by mouth 2 (two) [...] (FREESTYLE TEST) stripsIndications :DM (diabetes mellitus) ([facility]) Use bid and prn. Dx: 250.02 100 Each 3 4 Active lancetsIndication s:DM (diabetes mellitus) ([facility]) Freestyle freedom lite. Use bid and prn. Dx: 250.02 100 Each 3 4 Active BD INSULIN PEN NEEDLE UF 31 X 5/16 USE FOUR TIMES DAILY. 150 Each 3 4 Active insulin glargine (LANTUS SOLOSTAR PEN) 100 unit/mL (3 mL) injectionIndicati ons:DM (diabetes mellitus) ([facility]) Inject 50 Units into the skin once daily. 10 Each 3 4 Active HUMALOG KWIKPEN 100 unit/mL injection INJECT VIA SLIDING SCALE THREE TIMES DAILY WITH MEALS. MAX 60 UNITS PER DAY 15 mL 11 4 Active Active Problems Problem Noted Date Diagnosed Date Hypomagnesemia 12/07/2013 Overview (12/07/2013): = 1.6 on 12/02/13 Dizziness 12/07/2013 Overview (12/07/2013): Likely due BPPV DM (diabetes mellitus) ([facility]) 08/07/2013 HTN (hypertension) 08/07/2013 GERD (gastroesophageal reflux disease) 4 Hyperlipidemia 08/07/2013 History of [place] (myocardial infarction) 08/07/2013 Overview (08/07/2013): 2005 CAD [...] Treatment Not on file [place] Care Teams Director Of Ancillary Services Relationship Specialty Start Date End Date Ani Sebastian PA [address] [place] [phone] PCP - General Internal Medicine 08/07/13
== END 2025-01-27 09:42 | disposition home or self-care (01) ==
LOC: HO.US 09:41
PROVIDERS: PCP Internal Medicine; Visit Provider Surgery
DX: K80.20 Calculus of gallbladder without cholecystitis without obstruction (principal)
CPT/HCPCS: 76705

== ENCOUNTER → 2025-01-27 09:44 | Outpatient (BNV) | payer OTHER, SELFPAY | PROVIDERS: PCP Internal Medicine; Visit Provider Radiology Diagnostic Radiology | DX: K80.20 Calculus of gallbladder without cholecystitis without obstruction (principal) | CPT/HCPCS: 76705 ==

== ENCOUNTER → 2025-01-28 23:59 | Outpatient (BNV) | payer OTHER, SELFPAY ==
--- NOTE | 2025-02-01 12:24 | A.OFFVIS_ITS ---
Intake Visit Reasons: Remote ICD check- Medtronic Allergies Penicillins Allergy (Intermediate, Verified 01/25/25 13:50) ITCHING metformin Adverse Reaction (Intermediate, Verified 01/25/25 13:50) renal function changes [facility] Medical History Chronic kidney disease Foot abrasion, infected Type 2 diabetes mellitus Paresthesia Lumbar pain Sleep apnea Abnormal laboratory test Bibasilar crackles Encounter for interrogation of cardiac defibrillator HTN (hypertension) ROE (obstructive sleep apnea) CHF (congestive heart failure) Physical exam COVID-19 Bronchitis [id number] syndrome Reactive airway disease Hospital discharge follow-up Bronchitis URI (upper respiratory infection) Tremors of nervous system Carpal tunnel syndrome Screen for colon cancer Physical exam Cellulitis Left leg swelling Visual hallucination Cough Acute respiratory disease Influenza A Right upper quadrant abdominal pain Hallucinations Hypoglycemia due to type 2 diabetes mellitus Chronic heart failure with preserved ejection fraction (HFpEF) Cardiomyopathy Acute on chronic systolic (congestive) heart failure Defibrillator discharge ROE (obstructive sleep apnea) Hypothyroidism Obesity due to excess calories ROE on CPAP Ischemic cardiomyopathy Atherosclerotic cardiovascular disease GERD (gastroesophageal reflux disease) Hypothyroidism Type 2 diabetes mellitus with hyperglycemia, with long-term current use of insulin Essential hypertension Chronic systolic (congestive) heart failure ICD (implantable cardioverter-defibrillator) in place CAD (coronary artery disease) Hyperlipidemia LDL goal <70 Dyspnea Insomnia Delusion of persecution Surgical History Epidermal inclusion cyst Lump of skin Hx of CABG (~2019) Status post aorto-coronary artery bypass graft Postop check H/O inguinal hernia repair History of tooth extraction History of open heart surgery History of bilateral cataract extraction Family History Father No problems noted. Mother CVD (cardiovascular disease) Social History Household Members: Spouse Housing: House Do you presently have visiting nurse or other home services: Yes (every 15 days) Alcohol intake: former Patient Tobacco Use Status: Former Tobacco user e-Cigarette/Vaping Use: Never Used Second Hand Smoke Exposure: Yes service: No Current occupational status: retired Cognitive needs: Yes Hearing needs: No Vision needs: Yes Office Procedures Cardiac Device Check Cardiac Device Check Details: Date of service 01/28/2025; Battery life >5 years; normal lead parameters; no treated VT/VF; normal ICD function. [id number] Cardiac Interrogation, implant defibrillator w/interim Procedure code (CPT) selection complete Assessment & Plan Assessment & Plan (1) ICD (implantable cardioverter-defibrillator) in place: Comment: Right Skillstronic single chamber Code(s): Z95.810 - Presence of automatic (implantable) cardiac defibrillator Category: Medical (2) Ischemic cardiomyopathy: Code(s): I25.5 - Ischemic cardiomyopathy Category: Medical Plan x Coding Level of Care Code Procedure Only Diagnoses ICD (implantable cardioverter-defibrillator) in place Z95.810 Ischemic cardiomyopathy I25.5 CPT Codes Cardiac Device Check - Cardiac Device 13: [id number] Cardiac Interrogation, implant defibrillator w/interim ([id number])
== END ==
PROVIDERS: PCP Internal Medicine; Visit Provider Internal Medicine
DX: I25.5 Ischemic cardiomyopathy (principal); Z95.810 Presence of automatic (implantable) cardiac defibrillator
CPT/HCPCS: 93295

== ENCOUNTER → 2025-01-28 23:59 | Outpatient (BNV) | payer OTHER, SELFPAY ==
--- NOTE | 2025-02-01 08:16 | A.OFFVIS_ITS ---
Intake Visit Reasons: Remote HF monitoring- Medtronic Allergies Penicillins Allergy (Intermediate, Verified 01/25/25 13:50) ITCHING metformin Adverse Reaction (Intermediate, Verified 01/25/25 13:50) renal function changes [facility] Medical History Chronic kidney disease Foot abrasion, infected Type 2 diabetes mellitus Paresthesia Lumbar pain Sleep apnea Abnormal laboratory test Bibasilar crackles Encounter for interrogation of cardiac defibrillator HTN (hypertension) ROE (obstructive sleep apnea) CHF (congestive heart failure) Physical exam COVID-19 Bronchitis [id number] syndrome Reactive airway disease Hospital discharge follow-up Bronchitis URI (upper respiratory infection) Tremors of nervous system Carpal tunnel syndrome Screen for colon cancer Physical exam Cellulitis Left leg swelling Visual hallucination Cough Acute respiratory disease Influenza A Right upper quadrant abdominal pain Hallucinations Hypoglycemia due to type 2 diabetes mellitus Chronic heart failure with preserved ejection fraction (HFpEF) Cardiomyopathy Acute on chronic systolic (congestive) heart failure Defibrillator discharge ROE (obstructive sleep apnea) Hypothyroidism Obesity due to excess calories ROE on CPAP Ischemic cardiomyopathy Atherosclerotic cardiovascular disease GERD (gastroesophageal reflux disease) Hypothyroidism Type 2 diabetes mellitus with hyperglycemia, with long-term current use of insulin Essential hypertension Chronic systolic (congestive) heart failure ICD (implantable cardioverter-defibrillator) in place CAD (coronary artery disease) Hyperlipidemia LDL goal <70 Dyspnea Insomnia Delusion of persecution Surgical History Epidermal inclusion cyst Lump of skin Hx of CABG (~2019) Status post aorto-coronary artery bypass graft Postop check H/O inguinal hernia repair History of tooth extraction History of open heart surgery History of bilateral cataract extraction Family History Father No problems noted. Mother CVD (cardiovascular disease) Social History Household Members: Spouse Housing: House Do you presently have visiting nurse or other home services: Yes (every 15 days) Alcohol intake: former Patient Tobacco Use Status: Former Tobacco user e-Cigarette/Vaping Use: Never Used Second Hand Smoke Exposure: Yes service: No Current occupational status: retired Cognitive needs: Yes Hearing needs: No Vision needs: Yes Office Procedures Cardiac Device Check Cardiac Device Check Details: Date of service- 01/28/2025; based on impedance data and physiological variables, there is possible OptiVol fluid accumulation from 31 October 2024 to 18 November 2024. Patient activity < 1 hour a day for 5 weeks. [id number] Cardiac Device Interrogation, cardio physiologic monitor Procedure code (CPT) selection complete Assessment & Plan Assessment & Plan (1) ICD (implantable cardioverter-defibrillator) in place: Comment: Medtronic single chamber Code(s): Z95.810 - Presence of automatic (implantable) cardiac defibrillator Category: Medical (2) Ischemic cardiomyopathy: Code(s): I25.5 - Ischemic cardiomyopathy Category: Medical Plan x Coding Level of Care Code Procedure Only Diagnoses ICD (implantable cardioverter-defibrillator) in place Z95.810 Ischemic cardiomyopathy I25.5 CPT Codes Cardiac Device Check - Cardiac Device 15: [id number] Cardiac Device Interrogation, cardio physiologic monitor ([id number])
== END ==
PROVIDERS: PCP Internal Medicine; Visit Provider Internal Medicine
DX: I25.5 Ischemic cardiomyopathy (principal); Z95.810 Presence of automatic (implantable) cardiac defibrillator
CPT/HCPCS: 93297

== ENCOUNTER 2025-02-04 08:52 | Outpatient (AMB) | payer OTHER, SELFPAY ==
--- NOTE | 2025-02-04 08:58 | MHC.OFFVIS ---
Vital Signs 02/04/25 08:59 Height 5 ft 7 in Weight 194 lb BMI 30.4 BP 117/62 Blood Pressure Location Rt brachial Position Sitting Pulse 64 Intake Visit Reasons: Discuss abd CT 01-27-25 Intake Note: Patient here to discuss abdomen US 01-27-2025. Last evaluated for Cholelithiasis in December 2024. Patient c/o: on and off RUQ discomfort. French Polisher Required: Yes Accompanied by: Teresa Kaiser Allergies Penicillins Allergy (Intermediate, Verified 02/04/25 09:04) ITCHING metformin Adverse Reaction (Intermediate, Verified 02/04/25 09:04) renal function changes HPI HPI Discuss abd CT 01-27-25: Details: 74-year-old male here for follow-up for gallstones. He apparently was in [place] last October and he had undergone drainage of his gallbladder for a presumed infection. He was told that he would need his gallbladder removed. He said he did not want this to be done in [place] so he came back here [place] He went to [facility] last December 2024 because of that history. However, a CAT scan done at that time did not reveal any pathology in the gallbladder or abdomen. I had seen him in January, and told him I wanted to review his CAT scan images. He did have an ultrasound done last month showing gallstones. He admits to occasional pain in the right upper quadrant. He says he has good oral intake. He denies other GI complaints He has a history of coronary artery disease and had triple bypass in [place] about 3 years ago. He also has an AICD in place on the left chest. [facility] Medical History (Updated 02/04/25 @ 10:05 by Todd Trejo MD) Gallstones Chronic kidney disease Foot abrasion, infected Type 2 diabetes mellitus Paresthesia Lumbar pain Sleep apnea Abnormal laboratory test Bibasilar crackles Encounter for interrogation of cardiac defibrillator HTN (hypertension) ROE (obstructive sleep apnea) CHF (congestive heart failure) Physical exam COVID-19 Bronchitis [id number] syndrome Reactive airway disease Hospital discharge follow-up Bronchitis URI (upper respiratory infection) Tremors of nervous system Carpal tunnel syndrome Screen for colon cancer Physical exam Cellulitis Left leg swelling Visual hallucination Cough Acute respiratory disease Influenza A Right upper quadrant abdominal pain Hallucinations Hypoglycemia due to type 2 diabetes mellitus Chronic heart failure with preserved ejection fraction (HFpEF) Cardiomyopathy Acute on chronic systolic (congestive) heart failure Defibrillator discharge ROE (obstructive sleep apnea) Hypothyroidism Obesity due to excess calories ROE on CPAP Ischemic cardiomyopathy Atherosclerotic cardiovascular disease GERD (gastroesophageal reflux disease) Hypothyroidism Type 2 diabetes mellitus with hyperglycemia, with long-term current use of insulin Essential hypertension Chronic systolic (congestive) heart failure ICD (implantable cardioverter-defibrillator) in place CAD (coronary artery disease) Hyperlipidemia LDL goal <70 Dyspnea Insomnia Delusion of persecution Surgical History Epidermal inclusion cyst Lump of skin Hx of CABG (~2019) Status post aorto-coronary artery bypass graft Postop check H/O inguinal hernia repair History of tooth extraction History of open heart surgery History of bilateral cataract extraction Family History Father No problems noted. Mother CVD (cardiovascular disease) Social History Household Members: Spouse Housing: House Do you presently have visiting nurse or other home services: Yes (every 15 days) Alcohol intake: former Patient Tobacco Use Status: Former Tobacco user e-Cigarette/Vaping Use: Never Used Second Hand Smoke Exposure: Yes service: No Current occupational status: retired Cognitive needs: Yes Hearing needs: No Vision needs: Yes Review of Systems Const Denies chills and Denies fever(s) Card Denies chest pain Resp Denies cough GI Denies diarrhea and Denies vomiting Denies dysuria Musc Reports abnormal gait, Reports back pain and Reports arthralgias Neuro Reports abnormal gait Physical Exam Vital Signs: Last Vital Signs Pulse 64 02/04/25 08:59 BP 117/62 02/04/25 08:59 BMI result Body Mass Index 30.4 Const Other: Walks slowly frail looking General: comfortable and no acute distress Orientation/consciousness: patient oriented x3 Neck Neck: Yes no lymphadenopathy Resp Auscultation: clear to auscultation bilaterally Cardio Rhythm: regular rhythm GI Palpation (GI): Soft to palpation, nontender and no guarding Neuro General: patient oriented x3 Assessment & Plan Assessment & Plan (1) Gallstones: Code(s): K80.20 - Calculus of gallbladder without cholecystitis without obstruction Category: Medical Plan: He had an ultrasound done last month showing gallstones with cholecystitis. I have been unable to review his CAT scan from [facility] last Dec, 2024 He does admit to having periodic pain in the right upper quadrant. He stated that he wants to undergo cholecystectomy I had a long discussion with him about the technique of laparoscopic cholecystectomy and possible open cholecystectomy. I explained the risks including but not limited to bleeding, infections, injury to other organs including bowel, liver and the bile ducts, retained stones, bile leak, blood clots, pneumonia, ID, as well as the benefits and alternatives I will have him evaluated by the painter tumbling barrel for his perioperative risk in view of his history of coronary artery disease with bypass. I will also review again his imaging studies done in [facility]. Coding Level of Care Code Est Pt Level 4 (03766) Diagnoses Gallstones K80.20
[2025-02-04 08:59] VITALS: BP 117/62; PULSE 64; BMI 30.4
--- OUTSIDE RECORDS SUMMARY | 2025-02-04 09:03 | XMS_ITS | Clinical Summary ---
Author Organization [facility] Address [address] [place] [address] [address] [place] [address] Phone Care Team Providers Care Fire Lieutenant Name Role Phone Sophie Enrique MD Primary [...] mg/dl PVNMA 08/08/2020 us Rtama Conversion LAB [id number] LICITED RESULTS Final Result PVNMA from Last 3 Months or Most Recently Relevant to Health Maintenance Insurance [facility] ([id number]) [facility] ([id number]) Care Teams Fire Lieutenant Relationship Specialty Start Date End Date Sophie Enrique MD [address] [place] [address] PCP - General Internal Medicine 01/19/21
--- OUTSIDE RECORDS SUMMARY | 2025-02-04 09:03 | XMS_ITS | Clinical Summary ---
Author Organization [facility] Address [address] [place] [address] Care Team Providers Care Belt Worker Name Role Phone Ain Sebastian Primary Care Provider [phone] Source Comments PLEASE NOTE, if this patient [...] aspirin 81 mg EC tabletIndications :History of [place] (myocardial infarction),CAD (coronary artery disease) Take 1 Tab by mouth once daily. 30 Tab 4 4 Active blood-glucose meter monitoring kitIndications:DM (diabetes mellitus) ([facility]) as needed for blood glucose monitoring. 1 [...] (GLUCOPHAGE) 1,000 mg tabletIndications :DM (diabetes mellitus) ([facility]) Take 1 Tab by mouth 2 [...] diagnostic (FREESTYLE TEST) stripsIndications :DM (diabetes mellitus) ([facility]) Use bid and prn. Dx: 250.02 100 Each 3 4 Active lancetsIndication s:DM (diabetes mellitus) ([facility]) Freestyle freedom lite. Use bid and prn. Dx: 250.02 100 Each 3 4 Active BD INSULIN PEN NEEDLE UF 31 X 5/16 USE FOUR TIMES DAILY. 150 Each 3 4 Active insulin glargine (LANTUS SOLOSTAR PEN) 100 unit/mL (3 mL) injectionIndicati ons:DM (diabetes mellitus) ([facility]) Inject 50 Units into the skin once daily. 10 Each 3 4 Active HUMALOG KWIKPEN 100 unit/mL injection INJECT VIA SLIDING SCALE THREE TIMES DAILY WITH MEALS. MAX 60 UNITS PER DAY 15 mL 11 4 Active Active Problems Problem Noted Date Diagnosed Date Hypomagnesemia 12/07/2013 Overview (12/07/2013): = 1.6 on 12/02/13 Dizziness 12/07/2013 Overview (12/07/2013): Likely due BPPV DM (diabetes mellitus) ([facility]) 4 HTN (hypertension) 08/07/2013 GERD (gastroesophageal reflux disease) 4 Hyperlipidemia 08/07/2013 History of [place] (myocardial infarction) 08/07/2013 Overview (08/07/2013): 2004 CAD (coronary artery disease) 08/07/2013 Immunizations Immunization [...] Treatment Not on file [place] Care Teams Belt Worker Relationship Specialty Start Date End Date Ani Sebastian PA [address] [place] [phone] PCP - General Internal Medicine 08/07/13
== END 2025-02-04 10:09 | disposition home or self-care (01) ==
LOC: HO.HGS 08:53
PROVIDERS: PCP Internal Medicine; Visit Provider Surgery
DX: K80.20 Calculus of gallbladder without cholecystitis without obstruction (principal)
CPT/HCPCS: 99214

== ENCOUNTER → 2025-02-04 08:52 | Outpatient (BNVA) | payer OTHER, SELFPAY | PROVIDERS: PCP Internal Medicine; Visit Provider Surgery | DX: Z71.2 Person consulting for explanation of examination or test findings (principal); K80.20 Calculus of gallbladder without cholecystitis without obstruction | CPT/HCPCS: 99212 ==

== ENCOUNTER 2025-02-08 13:57 | Outpatient (AMB) | payer OTHER, SELFPAY ==
--- NOTE | 2025-02-08 14:01 | MHC.OFFVIS ---
Vital Signs 02/08/25 14:02 Height 5 ft 7 in Weight 198 lb BMI 31.0 BP 118/64 Blood Pressure Location Rt brachial Position Sitting Pulse 62 Pulse Source Pulse Oximeter Pulse Oximetry (%) 98 Oxygen Delivery Method Room Air Intake Visit Reasons: follow up Parkinson Intake Note: Patient presents for follow up Tremor, unspecified Anthropologist Physical Required: Yes Anthropologist Physical Services: Anthropologist Physical Present Anthropologist Physical Name: laura gracia Information Interpreted: non-clinical & clinical Allergies Penicillins Allergy (Intermediate, Verified 02/08/25 14:05) ITCHING metformin Adverse Reaction (Intermediate, Verified 02/08/25 14:05) renal function changes Medication List - Last Reconciled 02/08/25 by Lindsay Barnes MD [adult diapers pull-ups Use 8 times per day] amlodipine 5 mg PO DAILY 90 days aspirin (Enteric Coated Aspirin) 81 mg PO DAILY bisacodyl (Dulcolax (bisacodyl)) 10 mg (2 x 5 mg) PO BEDTIME 2 days blood sugar diagnostic (FreeStyle Lite Strips) As directed 4 times a day blood-glucose meter (FreeStyle Lite Meter kit) As directed blood-glucose sensor (FreeStyle Manjit 3 Sensor device) As directed blood-glucose,polymer chemist,cont (FreeStyle Manjit 3 Fay) As directed cholecalciferol (vitamin D3) 50 mcg PO DAILY 90 days CPAP (CPAP Machine/Device) As directed empagliflozin (Jardiance) 10 mg PO DAILY 30 days famotidine 20 mg PO BEDTIME 90 days xnirhovmcgn-deolzatxw-yaxuzgee 100-62.5-25 mcg (Trelegy Ellipta) 1 inh inhalation DAILY 28 days furosemide 20 mg PO DAILY 90 days galantamine ER 16 mg PO QAM galantamine ER 8 mg PO DAILY insulin aspart U-100 (Novolog FlexPen U-100 Insulin aspart) 26 units (0.26 mL) subcut TIDWMEAL 90 days insulin degludec (Tresiba FlexTouch U-200 insulin) 46 units (0.23 mL) subcut BEDTIME 90 days latex gloves (Latex Gloves, Large) Use 8 pairs per day losartan 25 mg PO DAILY 90 days metoprolol succinate ER 100 mg PO DAILY peg 3350-electrolytes 236-22.74-6.74 -5.86 gram (Golytely) 240 mL PO Q10M 1 day pen needle, diabetic 4 times a day As directed [personal wipes Use 8 per day prn] pramipexole ER 4.5 mg PO DAILY rosuvastatin 40 mg PO DAILY underpads (Bed Underpads) Use 5 pads per day Ventolin HFA 90 mcg/actuation (albuterol sulfate) 2 puffs PO Q6H PRN NS HPI Comments Details: 74y/o Right handed male comes for follow up of tremors, cognitive issues.Laura Gracia - a certified medical office professional instructor helps with todays visit. He is accompanied by his . His memory is worse. He is on Pramipexole XR 4.5 mg qhs for RLS- he still has periodic limb movements. He uses his CPAP regularly . He is scheduled for a new sleep study . He denies any new hallucinations since he started using his CPAP regularly. History from initial visit 07/2024- In 2019 he had a Cardiac surgery - during recovery he was very confused had hallucinations and delusions. He was seen by neurologist - he says he had some testing was told he had parkinsons and ? dementia.He was started on galantamine and pramipexole qhs . He also had sleep study in [place] , diagnosed with ROE and was started on CPAP. He noticed intermittent right hand rest tremors since 2019 and it has progressively worsened since then .The tremors are mostly at rest . the tremors does not bother him and does not affect his ADLs. Sleep is ok . He reports nightmares, vivid dreams , REM behavior disorder. He has mild on and off memory issues .Hallucinations fluctuates and is at night. His mood is Ok and he is not motivated. He did not notice any change in his speech or any drooling . He has mild difficulty with hand writing, using utensils, dressing , needs help with shower. His gait is OK No dizziness , no double vision . He has constipation and mild urgency IT IS UNCLEAR IF HE IS STILL TAKING PRAMIPEXOLE.Unclear if it was given for periodic limb movements. [facility] Medical History Gallstones Chronic kidney disease Foot abrasion, infected Type 2 diabetes mellitus Paresthesia Lumbar pain Sleep apnea Abnormal laboratory test Bibasilar crackles Encounter for interrogation of cardiac defibrillator HTN (hypertension) ROE (obstructive sleep apnea) CHF (congestive heart failure) Physical exam COVID-19 Bronchitis [id number] syndrome Reactive airway disease Hospital discharge follow-up Bronchitis URI (upper respiratory infection) Tremors of nervous system Carpal tunnel syndrome Screen for colon cancer Physical exam Cellulitis Left leg swelling Visual hallucination Cough Acute respiratory disease Influenza A Right upper quadrant abdominal pain Hallucinations Hypoglycemia due to type 2 diabetes mellitus Chronic heart failure with preserved ejection fraction (HFpEF) Cardiomyopathy Acute on chronic systolic (congestive) heart failure Defibrillator discharge ROE (obstructive sleep apnea) Hypothyroidism Obesity due to excess calories ROE on CPAP Ischemic cardiomyopathy Atherosclerotic cardiovascular disease GERD (gastroesophageal reflux disease) Hypothyroidism Type 2 diabetes mellitus with hyperglycemia, with long-term current use of insulin Essential hypertension Chronic systolic (congestive) heart failure ICD (implantable cardioverter-defibrillator) in place CAD (coronary artery disease) Hyperlipidemia LDL goal <70 Dyspnea Insomnia Delusion of persecution Surgical History Epidermal inclusion cyst Lump of skin Hx of CABG (~2018) Status post aorto-coronary artery bypass graft Postop check H/O inguinal hernia repair History of tooth extraction History of open heart surgery History of bilateral cataract extraction Family History Father No problems noted. Mother CVD (cardiovascular disease) Social History Household Members: Spouse Housing: House Do you presently have visiting nurse or other home services: Yes (every 15 days) Alcohol intake: former Patient Tobacco Use Status: Former Tobacco user e-Cigarette/Vaping Use: Never Used Second Hand Smoke Exposure: Yes service: No Current occupational status: retired Cognitive needs: Yes Hearing needs: No Vision needs: Yes Physical Exam Vital Signs: Last Vital Signs Pulse 62 02/08/25 14:02 BP 118/64 02/08/25 14:02 Pulse Ox 98 02/08/25 14:02 Oxygen Delivery Method Room Air 02/08/25 14:02 BMI result Body Mass Index 31.0 Const General: cooperative, comfortable and anxious Nutritional Appearance: not obese Orientation/consciousness: patient oriented x3 Eyes Pupils: Equal, round and reactive pupils present Neuro Other: Good facial expression , blink Good speech No tremors Noraml fine finger movements and foot taps No cog wheel rigidity General: patient oriented x3, gait normal, tone normal, moves all extremities and no focal motor deficits Cranial nerves: Yes Facial sensation intact/muscles of mastication intact, Yes Equal, round and reactive pupils present, Yes Bilaterally intact EOM present, Yes Nystagmus not present, Yes Normal facial strength present, Yes Midline tongue present and Yes Ability to bilaterally elevate shoulders present Cognition (Neuro): normal cognition Gait exam (Neuro): Normal gait present Assessment & Plan Assessment & Plan (1) Tremors of nervous system: Comment: senile , exaggertaed physiological , ? early parkinsons Code(s): R25.1 - Tremor, unspecified Category: Medical (2) Memory loss: Comment: age related , ? mild cognitive impairment Code(s): R41.3 - Other amnesia Category: Medical Plan No evidence of parkinsons on todays exam Hallucinations resolved . RBD could be related to Sleep apnea. Increase galantamine XR 16 mg qd Continue exercise and i will follow up clinically. Medications: New galantamine ER administer with breakfast 16 mg PO QAM 30 caps 6RF Coding Level of Care Code Est Pt Level 4 (89107) Complex EM visit Add On G2211 Diagnoses Tremors of nervous system R25.1 Memory loss R41.3
[2025-02-08 14:02] VITALS: BP 118/64; PULSE 62; O2SAT 98; BMI 31.0
--- OUTSIDE RECORDS SUMMARY | 2025-02-08 14:26 | XMS_ITS | Clinical Summary ---
Author Organization [facility] Address [address] [place] [address] Care Team Providers Care Bioinformatics Computer Scientist Name Role Phone Ani Sebastian Primary Care Provider [phone] Source Comments PLEASE NOTE, if this patient [...] aspirin 81 mg EC tabletIndications :History of [place] (myocardial infarction),CAD (coronary artery disease) Take 1 Tab by mouth once daily. 30 Tab 4 4 Active blood-glucose meter monitoring kitIndications:DM (diabetes mellitus) ([facility]) as needed for blood glucose monitoring. [...] (GLUCOPHAGE) 1,000 mg tabletIndications :DM (diabetes mellitus) ([facility]) Take 1 Tab by mouth [...] diagnostic (FREESTYLE TEST) stripsIndications :DM (diabetes mellitus) ([facility]) Use bid and prn. Dx: 250.02 100 Each 3 4 Active lancetsIndication s:DM (diabetes mellitus) ([facility]) Freestyle freedom lite. Use bid and prn. Dx: 250.02 100 Each 3 4 Active BD INSULIN PEN NEEDLE UF 31 X 5/16 USE FOUR TIMES DAILY. 150 Each 3 4 Active insulin glargine (LANTUS SOLOSTAR PEN) 100 unit/mL (3 mL) injectionIndicati ons:DM (diabetes mellitus) ([facility]) Inject 50 Units into the skin once daily. 10 Each 3 4 Active HUMALOG KWIKPEN 100 unit/mL injection INJECT VIA SLIDING SCALE THREE TIMES DAILY WITH MEALS. MAX 60 UNITS PER DAY 15 mL 11 4 Active Active Problems Problem Noted Date Diagnosed Date Hypomagnesemia 12/07/2013 Overview (12/07/2013): = 1.6 on 12/02/13 Dizziness 12/07/2013 Overview (12/07/2013): Likely due BPPV DM (diabetes mellitus) ([facility]) 4 HTN (hypertension) 08/07/2013 GERD (gastroesophageal reflux disease) 4 Hyperlipidemia 08/07/2013 History of [place] (myocardial infarction) 08/07/2013 Overview (08/07/2013): 2004 CAD [...] [place] Care Teams Bioinformatics Computer Scientist Relationship Specialty Start Date End Date Ani Sebastian PA [address] [place] [id number] PCP - General Internal Medicine 08/07/13
--- OUTSIDE RECORDS SUMMARY | 2025-02-08 14:26 | XMS_ITS | Clinical Summary ---
Author Organization [facility] Address [address] [place] [address] [address] [place] [address] Phone Care Team Providers Care Shoulder Puncher Name Role Phone Sophie Enrique MD Primary Care Provider [phone] Allergies Active Allergy Reactions Criticality Noted Date [...] Hemoglobin A1C 11/06/2020 08/08/2020 Influenza Vaccine (#1) 2025 08/07/2013 Hepatitis B Vaccine Aged Out No [...] mg/dl PVNMA 08/08/2020 us Rtama Conversion LAB [id number] LICITED RESULTS Final Result PVNMA from Last 3 Months or Most Recently Relevant to Health Maintenance Insurance [facility] ([id number]) [facility] ([id number]) Care Teams Shoulder Puncher Relationship Specialty Start Date End Date Sophie Enrique MD [address] [place], [place] PCP - General Internal Medicine 01/19/21
== END 2025-02-08 14:56 | disposition home or self-care (01) ==
LOC: HO.HSMS 13:58
PROVIDERS: PCP Internal Medicine; Visit Provider Psychiatry & Neurology Neurology
DX: R25.1 Tremor, unspecified (principal); R41.3 Other amnesia
CPT/HCPCS: 99214; G2211

== ENCOUNTER → 2025-02-08 13:57 | Outpatient (BNVA) | payer OTHER, SELFPAY | PROVIDERS: PCP Internal Medicine; Visit Provider Psychiatry & Neurology Neurology | DX: R25.1 Tremor, unspecified (principal); R41.3 Other amnesia; R44.3 Hallucinations, unspecified | CPT/HCPCS: 99212 ==

== ENCOUNTER → 2025-03-02 23:59 | Outpatient (BNV) | payer OTHER, SELFPAY ==
--- NOTE | 2025-03-08 21:29 | MHC.OFFVIS ---
Intake Visit Reasons: Remote HF monitoring- Medtronic Allergies Penicillins Allergy (Intermediate, Verified 02/08/25 14:05) ITCHING metformin Adverse Reaction (Intermediate, Verified 02/08/25 14:05) renal function changes [facility] Medical History Gallstones Chronic kidney disease Foot abrasion, infected Type 2 diabetes mellitus Paresthesia Lumbar pain Sleep apnea Abnormal laboratory test Bibasilar crackles Encounter for interrogation of cardiac defibrillator HTN (hypertension) ROE (obstructive sleep apnea) CHF (congestive heart failure) Physical exam COVID-19 Bronchitis [id number] syndrome Reactive airway disease Hospital discharge follow-up Bronchitis URI (upper respiratory infection) Tremors of nervous system Carpal tunnel syndrome Screen for colon cancer Physical exam Cellulitis Left leg swelling Visual hallucination Cough Acute respiratory disease Influenza A Right upper quadrant abdominal pain Hallucinations Hypoglycemia due to type 2 diabetes mellitus Chronic heart failure with preserved ejection fraction (HFpEF) Cardiomyopathy Acute on chronic systolic (congestive) heart failure Defibrillator discharge ROE (obstructive sleep apnea) Hypothyroidism Obesity due to excess calories ROE on CPAP Ischemic cardiomyopathy Atherosclerotic cardiovascular disease GERD (gastroesophageal reflux disease) Hypothyroidism Type 2 diabetes mellitus with hyperglycemia, with long-term current use of insulin Essential hypertension Chronic systolic (congestive) heart failure ICD (implantable cardioverter-defibrillator) in place CAD (coronary artery disease) Hyperlipidemia LDL goal <70 Dyspnea Insomnia Delusion of persecution Surgical History Epidermal inclusion cyst Lump of skin Hx of CABG (~2019) Status post aorto-coronary artery bypass graft Postop check H/O inguinal hernia repair History of tooth extraction History of open heart surgery History of bilateral cataract extraction Family History Father No problems noted. Mother CVD (cardiovascular disease) Social History Household Members: Spouse Housing: House Do you presently have visiting nurse or other home services: Yes (every 15 days) Alcohol intake: former Patient Tobacco Use Status: Former Tobacco user e-Cigarette/Vaping Use: Never Used Second Hand Smoke Exposure: Yes service: No Current occupational status: retired Cognitive needs: Yes Hearing needs: No Vision needs: Yes Office Procedures Cardiac Device Check Cardiac Device Check Details: Date of service- 03/02/2025; based on impedance data and physiological variables, there is no evidence of worsening congestive heart failure. [id number] Cardiac Device Interrogation, cardio physiologic monitor Procedure code (CPT) selection complete Assessment & Plan Assessment & Plan (1) ICD (implantable cardioverter-defibrillator) in place: Comment: Medtronic single chamber Code(s): Z95.810 - Presence of automatic (implantable) cardiac defibrillator Category: Medical (2) Chronic systolic (congestive) heart failure: Code(s): I50.22 - Chronic systolic (congestive) heart failure Category: Medical Plan x Coding Level of Care Code Procedure Only Diagnoses ICD (implantable cardioverter-defibrillator) in place Z95.810 Chronic systolic (congestive) heart failure I50.22 CPT Codes Cardiac Device Check - Cardiac Device 15: [id number] Cardiac Device Interrogation, cardio physiologic monitor ([id number])
== END ==
PROVIDERS: PCP Internal Medicine; Visit Provider Internal Medicine
DX: I50.22 Chronic systolic (congestive) heart failure (principal); Z95.810 Presence of automatic (implantable) cardiac defibrillator
CPT/HCPCS: 93297

== ENCOUNTER 2025-03-16 13:42 | Outpatient (AMB) | payer OTHER, SELFPAY ==
[2025-03-16 14:02] VITALS: BP 120/66; PULSE 62; BMI 31.0
--- NOTE | 2025-03-16 14:02 | A.OFFVIS_ITS ---
Vital Signs 03/16/25 14:02 Height 5 ft 7 in Weight 198 lb BMI 31.0 BP 120/66 Blood Pressure Location Lt brachial Position Sitting Pulse 62 Pulse Source Monitor Intake Visit Reasons: 6 mth f/up Ocean Export Account Manager Required: Yes Ocean Export Account Manager Name: [id number] Allergies Penicillins Allergy (Intermediate, Verified 02/08/25 14:05) ITCHING metformin Adverse Reaction (Intermediate, Verified 02/08/25 14:05) renal function changes Medication List - Last Reconciled 03/16/25 by Joey Vickers MD [adult diapers pull-ups Use 8 times per day] amlodipine 5 mg PO DAILY 90 days aspirin (Enteric Coated Aspirin) 81 mg PO DAILY bisacodyl (Dulcolax (bisacodyl)) 10 mg (2 x 5 mg) PO BEDTIME 2 days blood sugar diagnostic (FreeStyle Lite Strips) As directed 4 times a day blood-glucose meter (FreeStyle Lite Meter kit) As directed blood-glucose sensor (FreeStyle Manjit 3 Sensor device) As directed blood-glucose,laborer shellfish processing,cont (FreeStyle Manjit 3 Wesley) As directed CPAP (CPAP Machine/Device) As directed empagliflozin (Jardiance) 10 mg PO DAILY 30 days famotidine 20 mg PO BEDTIME 90 days qdlxlkmvbxg-bmiozrzpu-ewjyrvro 100-62.5-25 mcg (Trelegy Ellipta) 1 inh inhalation DAILY 28 days furosemide 20 mg PO DAILY 90 days galantamine ER 16 mg PO QAM insulin aspart U-100 (Novolog FlexPen U-100 Insulin aspart) 26 units (0.26 mL) subcut TIDWMEAL 90 days insulin degludec (Tresiba FlexTouch U-200 insulin) 46 units (0.23 mL) subcut BEDTIME 90 days latex gloves (Latex Gloves, Large) Use 8 pairs per day losartan 25 mg PO DAILY 90 days metoprolol succinate ER 100 mg PO DAILY peg 3350-electrolytes 236-22.74-6.74 -5.86 gram (Golytely) 240 mL PO Q10M 1 day pen needle, diabetic 4 times a day As directed [personal wipes Use 8 per day prn] pramipexole ER 4.5 mg PO DAILY rosuvastatin 40 mg PO DAILY underpads (Bed Underpads) Use 5 pads per day Ventolin HFA 90 mcg/actuation (albuterol sulfate) 2 puffs PO Q6H PRN NS HPI Comments Details: Ed returns for follow-up regarding coronary disease and cardiomyopathy. He has a history of coronary artery bypass surgery, 2019 in [place]. Also has an ICD in place. Otherwise, it seems that in November of this year who was admitted to [facility] with respiratory failure. Per discharge summary, there was mentioned of acute on chronic hypoxic/hypercarbic respiratory failure and was felt to be related to some combination of obstructive sleep apnea as well as congestive heart failure. He was treated with diuretics, antibiotics for coexisting lower extremity cellulitis and eventually discharged home. He states that he can get short of breath when he walks long distances but otherwise he feels okay for the most part. [facility] Medical History Gallstones Chronic kidney disease Foot abrasion, infected Type 2 diabetes mellitus Paresthesia Lumbar pain Sleep apnea Abnormal laboratory test Bibasilar crackles Encounter for interrogation of cardiac defibrillator HTN (hypertension) ROE (obstructive sleep apnea) CHF (congestive heart failure) Physical exam COVID-19 Bronchitis [id number] syndrome Reactive airway disease Hospital discharge follow-up Bronchitis URI (upper respiratory infection) Tremors of nervous system Carpal tunnel syndrome Screen for colon cancer Physical exam Cellulitis Left leg swelling Visual hallucination Cough Acute respiratory disease Influenza A Right upper quadrant abdominal pain Hallucinations Hypoglycemia due to type 2 diabetes mellitus Chronic heart failure with preserved ejection fraction (HFpEF) Cardiomyopathy Acute on chronic systolic (congestive) heart failure Defibrillator discharge ROE (obstructive sleep apnea) Hypothyroidism Obesity due to excess calories ROE on CPAP Ischemic cardiomyopathy Atherosclerotic cardiovascular disease GERD (gastroesophageal reflux disease) Hypothyroidism Type 2 diabetes mellitus with hyperglycemia, with long-term current use of insulin Essential hypertension Chronic systolic (congestive) heart failure ICD (implantable cardioverter-defibrillator) in place CAD (coronary artery disease) Hyperlipidemia LDL goal <70 Dyspnea Insomnia Delusion of persecution Surgical History Epidermal inclusion cyst Lump of skin Hx of CABG (~2018) Status post aorto-coronary artery bypass graft Postop check H/O inguinal hernia repair History of tooth extraction History of open heart surgery History of bilateral cataract extraction Family History Father No problems noted. Mother CVD (cardiovascular disease) Social History Household Members: Spouse Housing: House Do you presently have visiting nurse or other home services: Yes (every 15 days) Alcohol intake: former Patient Tobacco Use Status: Former Tobacco user e-Cigarette/Vaping Use: Never Used Second Hand Smoke Exposure: Yes service: No Current occupational status: retired Cognitive needs: Yes Hearing needs: No Vision needs: Yes Review of Systems Const Denies weakness ENT Denies dizziness Card Denies chest pain, Denies chest pain with activity, Denies syncope, Denies rapid heart rate, Denies pedal edema, Denies edema, Denies leg edema, Denies lightheadedness, Denies palpitations, Denies dyspnea, Denies dyspnea on exertion and Denies orthopnea Resp Denies cough, Denies dyspnea and Denies dyspnea on exertion GI Denies hematochezia and Denies change in stool character Musc Denies abnormal gait, Denies muscle cramps, Denies muscle weakness, Denies numbness, Denies radiating pain into limb and Denies tingling Neuro Denies abnormal gait, Denies dizziness, Denies syncope, Denies numbness, Denies tingling and Denies weakness Endo Denies palpitations Physical Exam Vital Signs: Last Vital Signs Pulse 62 03/16/25 14:02 BP 120/66 03/16/25 14:02 BMI result Body Mass Index 31.0 Const General: comfortable and no acute distress Orientation/consciousness: patient oriented x3 HEENT Other: Unremarkable Head: Yes normal to inspection Neck Neck: Yes normal visual inspection Chest Chest palpation & inspection: normal inspection of the chest Resp Auscultation: rhonchi and diminished lung sounds Cardio Palpation: normal PMI Heart sounds: S1 normal heart sound present, S2 normal heart sound present, no gallops, no murmurs and no rubs GI Palpation (GI): Soft to palpation Back/Spine/Pelvis Other: unremarkable Skin General skin exam: no rashes or lesions noted Neuro General: patient oriented x3 Extrem General: Yes normal to inspection Psych Mental Status: mental status grossly normal Office Procedures EKG Details: EKG with underlying sinus rhythm at 62/Min; inferior and anterolateral T inversions. EKGs different from the last one but similar to the one from August of 2021. [id number]-Edpeweikquunlqnpi, Complete Assessment & Plan Assessment & Plan (1) Atherosclerotic cardiovascular disease: Code(s): I25.10 - Atherosclerotic heart disease of [place] coronary artery without angina pectoris Category: Medical (2) Status post aorto-coronary artery bypass graft: Code(s): Z95.1 - Presence of aortocoronary bypass graft Category: Surgical (3) Chronic heart failure with preserved ejection fraction (HFpEF): Code(s): I50.32 - Chronic diastolic (congestive) heart failure Category: Medical (4) Essential hypertension: Code(s): I10 - Essential (primary) hypertension Category: Medical (5) ICD (implantable cardioverter-defibrillator) in place: Comment: [employer] single chamber Code(s): Z95.810 - Presence of automatic (implantable) cardiac defibrillator Category: Medical Plan Cardiac studies reviewed. Per records, CABG 2019 in [place]. At that time, LVEF documented as 32%. In the last echocardiogram in 2022, LVEF 48%. In another study at [facility] from November this year, LVEF is 40-45%. Mild global hypokinesis. Mild pulmonary hypertension. With regard to his complaints of shortness of breath he does have some wheezing all lung torres. Could be from airway disease but cannot exclude heart failure either. However, per CAT scan done at that time, thought to be rather air trapping and small/medium airway disease versus mild pulmonary edema. Right lower lobe atelectasis. He remains on metoprolol ER, losartan, Jardiance, diuretics. No changes with that. He can use inhalers as necessary. He does have CKD and in the past creatinine has been as much as 2.2, currently, much lower. We can consider going up on the Lasix to 40 mg daily. But we will need to check with pharmacy 1st regarding current dosing and also repeat his labs- BMP/BNP. With regard to blood pressure, he is on amlodipine and losartan. Continue that. With regard to lipids, earlier this year, LDL is only 44 but then it has gone up to 143. Not clear if there was any interruptions statins. Advised him to continue that and probably recheck in due course. Otherwise, patient inquired if he can go for gallbladder surgery. No absolutely contraindication, but increased risk overall because of his cardiac comorbidities. Discussion Notes I discussed with the patient the need for a repeat heart ultrasound to evaluate his cardiac function due to his symptoms of shortness of breath and decreased oxygen levels. We talked about the continuation of rosuvastatin for hypercholesterolemia, given his adherence to the medication. We also considered the feasibility of gallstone surgery, acknowledging the increased risk due to his heart condition. A follow-up was planned for six months to reassess his condition and management plan. Patient was informed and verbally consented to the use of an ambient scribe for clinic note documentation during this visit. Orders: Orders Basic Metabolic Panel Today I50.22 - Chronic systolic (congestive) heart failure, I50.9 - Heart failure, unspecified B Type Natriuretic Peptide Today I50.22 - Chronic systolic (congestive) heart failure Coding Level of Care Code Est Pt Level 4 (11694) Complex EM visit Add On G2211 Diagnoses Atherosclerotic cardiovascular disease I25.10 Status post aorto-coronary artery bypass graft Z95.1 Chronic heart failure with preserved ejection fraction (HFpEF) I50.32 Essential hypertension I10 ICD (implantable cardioverter-defibrillator) in place Z95.810 CPT Codes EKG - CPT: 80008-[id number], Complete ([id number])
--- OUTSIDE RECORDS SUMMARY | 2025-03-16 14:40 | XMS_ITS | Clinical Summary ---
Author Organization [facility] Address [address] [place] [address] Care Team Providers Care Employee Benefits Attorney Name Role Phone Ani Sebastian Primary Care Provider [phone] Source Comments PLEASE NOTE, if this patient [...] aspirin 81 mg EC tabletIndications :History of DE (myocardial infarction),CAD (coronary artery disease) Take 1 Tab by mouth once daily. 30 Tab 4 4 Active blood-glucose meter monitoring kitIndications:DM (diabetes mellitus) ([facility]) as needed for blood glucose monitoring. 1 [...] (GLUCOPHAGE) 1,000 mg tabletIndications :DM (diabetes mellitus) ([facility]) Take 1 Tab by mouth 2 [...] diagnostic (FREESTYLE TEST) stripsIndications :DM (diabetes mellitus) ([facility]) Use bid and prn. Dx: 250.02 100 Each 3 4 Active lancetsIndication s:DM (diabetes mellitus) ([facility]) Freestyle freedom lite. Use bid and prn. Dx: 250.02 100 Each 3 4 Active BD INSULIN PEN NEEDLE UF 31 X 5/16 USE FOUR TIMES DAILY. 150 Each 3 4 Active insulin glargine (LANTUS SOLOSTAR PEN) 100 unit/mL (3 mL) injectionIndicati ons:DM (diabetes mellitus) ([facility]) Inject 50 Units into the skin once daily. 10 Each 3 4 Active HUMALOG KWIKPEN 100 unit/mL injection INJECT VIA SLIDING SCALE THREE TIMES DAILY WITH MEALS. MAX 60 UNITS PER DAY 15 mL 11 4 Active Active Problems Problem Noted Date Diagnosed Date Hypomagnesemia 12/07/2013 Overview (12/07/2013): = 1.6 on 12/02/13 Dizziness 12/07/2013 Overview (12/07/2013): Likely due BPPV DM (diabetes mellitus) ([facility]) 4 HTN (hypertension) 08/07/2013 GERD (gastroesophageal reflux disease) 4 Hyperlipidemia 08/07/2013 History of DE (myocardial infarction) 08/07/2013 Overview (08/07/2013): 2004 CAD [...] Treatment Not on file [place] Care Teams Employee Benefits Attorney Relationship Specialty Start Date End Date Ani Sebastian PA [address] [place] [phone] PCP - General Internal Medicine 08/07/13
--- OUTSIDE RECORDS SUMMARY | 2025-03-16 14:40 | XMS_ITS | Clinical Summary ---
Author Organization [facility] Address [address] [place] [address] [address] [place] [address] Phone Care Team Providers Care Cable Maker Name Role Phone Sophie Enrique MD Primary Care Provider [phone] Allergies Active Allergy Reactions Criticality Noted Date [...] mg/dl PVNMA 08/08/2020 us Rtama Conversion LAB [id number] LICITED RESULTS Final Result PVNMA from Last 3 Months or Most Recently Relevant to Health Maintenance Insurance [facility] ([id number]) [facility] ([id number]) Care Teams Cable Maker Relationship Specialty Start Date End Date Sophie Enrique MD [address] [place], [place] PCP - General Internal Medicine 01/19/21
== END 2025-03-16 14:30 | disposition home or self-care (01) ==
LOC: HO.HCS 13:43
PROVIDERS: PCP Internal Medicine; Visit Provider Internal Medicine
DX: I25.10 Atherosclerotic heart disease of native coronary artery without angina pectoris (principal); Z95.1 Presence of aortocoronary bypass graft; I50.32 Chronic diastolic (congestive) heart failure; I10 Essential (primary) hypertension; Z95.810 Presence of automatic (implantable) cardiac defibrillator
CPT/HCPCS: 93010; 99214; G2211

== ENCOUNTER → 2025-03-16 13:42 | Outpatient (BNVA) | payer OTHER, SELFPAY | PROVIDERS: PCP Internal Medicine; Visit Provider Internal Medicine | DX: I11.0 Hypertensive heart disease with heart failure (principal); I50.32 Chronic diastolic (congestive) heart failure; I44.5 Left posterior fascicular block; I25.10 Atherosclerotic heart disease of native coronary artery without angina pectoris; Z95.1 Presence of aortocoronary bypass graft; Z95.810 Presence of automatic (implantable) cardiac defibrillator | CPT/HCPCS: 93005; 99212 ==

== ENCOUNTER 2025-03-19 09:41 | Outpatient (REF) | payer OTHER, SELFPAY ==
--- OUTSIDE RECORDS SUMMARY | 2025-03-19 09:50 | XMS_ITS | Clinical Summary ---
Author Organization [facility] Address [address] [place] [address] Care Team Providers Care Woolen Tester Name Role Phone Ani Sebastian Primary Care Provider [phone] Source Comments PLEASE NOTE, if this patient [...] aspirin 81 mg EC tabletIndications :History of MN (myocardial infarction),CAD (coronary artery disease) Take 1 Tab by mouth once daily. 30 Tab 4 4 Active blood-glucose meter monitoring kitIndications:DM (diabetes mellitus) ([facility]) as needed for blood glucose monitoring. [...] mg tabletIndications :DM (diabetes mellitus) ([facility]) Take 1 Tab by mouth 2 (two) [...] TEST) stripsIndications :DM (diabetes mellitus) ([facility]) Use bid and prn. Dx: 250.02 100 Each 3 4 Active lancetsIndication s:DM (diabetes mellitus) ([facility]) Freestyle freedom lite. Use bid and prn. Dx: 250.02 100 Each 3 4 Active BD INSULIN PEN NEEDLE UF 31 X 5/16 USE FOUR TIMES DAILY. 150 Each 3 4 Active insulin glargine (LANTUS SOLOSTAR PEN) 100 unit/mL (3 mL) injectionIndicati ons:DM (diabetes mellitus) ([facility]) Inject 50 Units into the skin [...] due BPPV DM (diabetes mellitus) ([facility]) 4 HTN (hypertension) 08/07/2013 GERD (gastroesophageal reflux disease) 4 Hyperlipidemia 08/07/2013 History of MN (myocardial infarction) 08/07/2013 Overview (08/07/2013): 2004 CAD [...] [place] Care Teams Woolen Tester Relationship Specialty Start Date End Date Ani Sebastian PA [address] [place] [id number] PCP - General Internal Medicine 08/07/13
--- OUTSIDE RECORDS SUMMARY | 2025-03-19 09:50 | XMS_ITS | Clinical Summary ---
Author Organization [facility] Address [address] [place] [address] [address] [place] [address] Phone Care Team Providers Care Returned Goods Inspector Name Role Phone Sophie Enrique MD Primary Care Provider [phone] Allergies Active Allergy Reactions Criticality Noted Date [...] mg/dl PVNMA 08/08/2020 us Rtama Conversion LAB [id number] LICITED RESULTS Final Result PVNMA from Last 3 Months or Most Recently Relevant to Health Maintenance Insurance [facility] ([id number]) [facility] ([id number]) Care Teams Returned Goods Inspector Relationship Specialty Start Date End Date Sophie Enrique MD [address] [place], [place] PCP - General Internal Medicine 01/19/21
[2025-03-19 09:58] LABS: MANUAL DIFF FLAG NO
[2025-03-19 10:29] LABS: Hematocrit 43.9 % (42.0-52.0); Hemoglobin 14.1 g/dl (14.0-18.0); Imm Gran Abs Auto 0.04 X10*3/uL (0.00-0.03); Imm Gran Pct Auto 0.4 % (0.0-0.4); Lymphocytes Absolute Auto 2.0 X10*3/uL (1.2-4.9); Mean Corpuscular HGB Conc 32.1 g/dl (31.0-36.0); Mean Corpuscular Hemoglobin 28.1 pg (27.0-33.0); Mean Corpuscular Volume 87.5 fL (80.0-98.0); NRBC Abs Auto 0.000 X10*3/uL (0.0-0.012); NRBC Pct Auto 0.0 /100WBC (0.0-0.2); Platelet Count 219 X10*3/uL (160-400); Red Blood Count 5.02 X10*6/uL (4.60-5.80); White Blood Count 10.4 X10*3/uL (4.8-10.8)
[2025-03-19 11:03] LABS: B Type Natriuretic Peptide 268 pg/mL (<100)
[2025-03-19 11:12] LABS: Alanine Aminotransferase 27 U/L (0-40); Albumin Level 3.6 g/dL (3.5-5.0); Alkaline Phosphatase 80 U/L (39-117); Anion Gap 11 (12-20); Aspartate Amino Transferase 31 U/L (5-37); Blood Urea Nitrogen 27 mg/dL (9-16); Calcium 9.6 mg/dL (8.4-10.2); Carbon Dioxide 28 mmol/L (22-29); Chloride 100 mmol/L (96-108); Cholesterol 125 mg/dL (<200); Estimated Glomerular Filt Rate 42; HDL Cholesterol 41 mg/dL (>40); Iron 60 mcg/dL (45-160); Percent Iron Saturation 22 % (15-50); Potassium 5.0 mmol/L (3.3-5.1); Sodium 134 mmol/L (135-145); Total Iron Binding Capacity 275 mcg/dL (228-428); Total Protein 7.1 g/dL (6.5-8.0); Triglycerides 88 mg/dL (<150); Unsaturated Iron Binding 215 ug/dL
[2025-03-19 11:36] LABS: Microalbum/Creatinine Ratio Ur 1998.6 ug/mg cr (<30)
== END 2025-03-19 09:42 | disposition home or self-care (01) ==
LOC: HO.LAB 09:41
PROVIDERS: Absent Provider Internal Medicine; PCP Internal Medicine; Visit Provider Internal Medicine
DX: E11.65 Type 2 diabetes mellitus with hyperglycemia (principal); I50.22 Chronic systolic (congestive) heart failure; E55.9 Vitamin D deficiency, unspecified; E78.5 Hyperlipidemia, unspecified; R80.9 Proteinuria, unspecified; D64.9 Anemia, unspecified; Z79.4 Long term (current) use of insulin
CPT/HCPCS: 36415; 80053; 80061; 82043; 82306; 82570; 83540; 83880; 85025

== ENCOUNTER → 2025-03-22 19:30 | Outpatient (REF) | payer OTHER, SELFPAY | LOC: HO.SL 19:30 | PROVIDERS: PCP Internal Medicine; Visit Provider Hospitalist | DX: Z13.89 Encounter for screening for other disorder (principal) ==

== ENCOUNTER 2025-03-23 14:26 | Outpatient (AMB) | payer OTHER, SELFPAY ==
--- NOTE | 2025-03-23 14:33 | A.OFFVIS_ITS ---
Vital Signs 03/23/25 14:37 Height 5 ft 7 in Weight 198 lb 6.656 oz BMI 31.1 BP 122/72 Blood Pressure Location Rt brachial Position Sitting Pulse 63 Pulse Source Pulse Oximeter Pulse Oximetry (%) 97 Oxygen Delivery Method Room Air Intake Visit Reasons: T2DM Intake Note: Patient present today to follow up on Type 2 Diabetes Mellitus. Last seen by Sera Gross on 11/27/2024. Patient receives Manjit 3 Plus sensor supplies through: [employer] Last Diabetic Eye exam: approx in October 2024 Last Podiatry Visit: Does not see a Chinese Teacher Random Glucose: 376 mg/dl HgA1C: 12.9% 03/23/2025 [employer] Former Supervisor Required: Yes [employer] Former Supervisor Language: Tooth Polisher Services: [employer] Former Supervisor Present [employer] Former Supervisor Name: ADDIS Segura Information Interpreted: non-clinical & clinical Accompanied by: Self / Same As Patient Allergies Penicillins Allergy (Intermediate, Verified 03/23/25 14:39) ITCHING metformin Adverse Reaction (Intermediate, Verified 03/23/25 14:39) renal function changes Medication List - Last Reconciled 03/23/25 by Godwin Cervantes MD [adult diapers pull-ups Use 8 times per day] amlodipine 5 mg PO DAILY 90 days aspirin (Enteric Coated Aspirin) 81 mg PO DAILY bisacodyl (Dulcolax (bisacodyl)) 10 mg (2 x 5 mg) PO BEDTIME 2 days blood sugar diagnostic (FreeStyle Lite Strips) As directed 4 times a day blood-glucose meter (FreeStyle Lite Meter kit) As directed blood-glucose sensor (FreeStyle Manjit 3 Sensor device) As directed blood-glucose,hand candy molder,cont (FreeStyle Manjit 3 [place]) As directed CPAP (CPAP Machine/Device) As directed empagliflozin (Jardiance) 10 mg PO DAILY 30 days famotidine 20 mg PO BEDTIME 90 days yqtnndrujjt-xycxtfrlm-ythxucul 100-62.5-25 mcg (Trelegy Ellipta) 1 inh inhalation DAILY 28 days furosemide 40 mg (2 x 20 mg) PO DAILY 90 days galantamine ER 16 mg PO QAM insulin aspart U-100 (Novolog FlexPen U-100 Insulin aspart) 26 units (0.26 mL) subcut TIDWMEAL 90 days insulin degludec (Tresiba FlexTouch U-200 insulin) 46 units (0.23 mL) subcut BEDTIME 90 days latex gloves (Latex Gloves, Large) Use 8 pairs per day losartan 25 mg PO DAILY 90 days metoprolol succinate ER 100 mg PO DAILY peg 3350-electrolytes 236-22.74-6.74 -5.86 gram (Golytely) 240 mL PO Q10M 1 day pen needle, diabetic 4 times a day As directed [personal wipes Use 8 per day prn] pramipexole ER 4.5 mg PO DAILY rosuvastatin 40 mg PO DAILY underpads (Bed Underpads) Use 5 pads per day Ventolin HFA 90 mcg/actuation (albuterol sulfate) 2 puffs PO Q6H PRN NS HPI Comments Details: 74 year old male who is seen in f/u for T2DM. Patient was last seenby Sera Ramírez NP 11/27/24 Initially diagnosed with T2DM approx 30 years ago. On insulin last six years. Tresiba 46 units Novolog with meals tid 80-150 20 units 151-200 24 units 201-250 28 units 251-300 32 units over 300 34 units Jardiance 10 mg QD metformin stopped last visit jardiance started last visit. HE does know if he picked this up from pharmacy ( I called and confirmed he had) Mounjaro 10.0 mg weekly as he saw an add on TV and decided he was afraid of the side effects. Unfortunately, patient did not bring sensor, glucometer or log book with him to follow up visit Saw elena November 2024 Has nephropathy EGFR 10/02/24 eGFR 37 microalbumin 789 on ARB followed by nephrology LDL 44 08/20/2024 on statin [facility] Medical History Gallstones Chronic kidney disease Foot abrasion, infected Type 2 diabetes mellitus Paresthesia Lumbar pain Sleep apnea Abnormal laboratory test Bibasilar crackles Encounter for interrogation of cardiac defibrillator HTN (hypertension) ROE (obstructive sleep apnea) CHF (congestive heart failure) Physical exam COVID-19 Bronchitis [id number] syndrome Reactive airway disease Hospital discharge follow-up Bronchitis URI (upper respiratory infection) Tremors of nervous system Carpal tunnel syndrome Screen for colon cancer Physical exam Cellulitis Left leg swelling Visual hallucination Cough Acute respiratory disease Influenza A Right upper quadrant abdominal pain Hallucinations Hypoglycemia due to type 2 diabetes mellitus Chronic heart failure with preserved ejection fraction (HFpEF) Cardiomyopathy Acute on chronic systolic (congestive) heart failure Defibrillator discharge ROE (obstructive sleep apnea) Hypothyroidism Obesity due to excess calories ROE on CPAP Ischemic cardiomyopathy Atherosclerotic cardiovascular disease GERD (gastroesophageal reflux disease) Hypothyroidism Type 2 diabetes mellitus with hyperglycemia, with long-term current use of insulin Essential hypertension Chronic systolic (congestive) heart failure ICD (implantable cardioverter-defibrillator) in place CAD (coronary artery disease) Hyperlipidemia LDL goal <70 Dyspnea Insomnia Delusion of persecution Surgical History Epidermal inclusion cyst Lump of skin Hx of CABG (~2019) Status post aorto-coronary artery bypass graft Postop check H/O inguinal hernia repair History of tooth extraction History of open heart surgery History of bilateral cataract extraction Family History Father No problems noted. Mother CVD (cardiovascular disease) Social History Household Members: Spouse Housing: House Do you presently have visiting nurse or other home services: Yes (every 15 days) Alcohol intake: former Patient Tobacco Use Status: Former Tobacco user e-Cigarette/Vaping Use: Never Used Second Hand Smoke Exposure: Yes service: No Current occupational status: retired Cognitive needs: Yes Hearing needs: No Vision needs: Yes Physical Exam Vital Signs: Last Vital Signs Pulse 63 03/23/25 14:37 BP 122/72 03/23/25 14:37 Pulse Ox 97 03/23/25 14:37 Oxygen Delivery Method Room Air 03/23/25 14:37 BMI result Body Mass Index 31.1 Absence of Cushingoid features. Absence of acromegalic features. Neck exam reveals nl size thyroid about 15 gms. No thyroid nodules palpable. No carotid bruits present. Lungs CTA. Heart S1 S2, Reg R/R. No M/R/ G. Skin exam reveals absence of vitiligo or acanthosis nigricans. Abdominal exam reveals Soft NT/ND with NA BS. No organomegaly present. Neck Other: . Extrem Other: Visual exam of foot performed. No ulcerations or open lesions. No onchomycosis, no callouses.Pulses 2 + distally Sensation intact to monofilament exam. Vibratory sensation sensed is intact with 128 Hz tuning fork Results AMB Hemoglobin A1c AMB Hemoglobin A1c 12.9 % Last Edit by OREN Dominguez on 03/23/25 15:03 Results Reviewed Results Reviewed: Laboratory Last Values Glucose (Clinic) 376 mg/dL (60-115) H* 03/23/25 14:44 Assessment & Plan Assessment & Plan (1) Type 2 diabetes mellitus with hyperglycemia, with long-term current use of insulin: Code(s): E11.65 - Type 2 diabetes mellitus with hyperglycemia; Z79.4 - terminologist (current) use of insulin Category: Medical Plan: This is a 74-year-old male with a history of type 2 diabetes being treated withJardiance and basal insulin with poor glycemic control and known macrovascular and mcg complications namely CAD on microalbuminuria Plan is to impress upon the patient to bring the Manjit with him to follow up appointments. Can not make adjustments of the insulin regimen because of lack of data. Made an appointment to podiatry. Had a long discussion with the patient regarding the correlation of poor glycemic control with development of progression of complications Orders: Orders AMB Hemoglobin A1c Today E11.65 - Type 2 diabetes mellitus with hyperglycemia, Z79.4 - longterm (current) use of insulin Referrals Podiatry Referral E11.65 - Type 2 diabetes mellitus with hyperglycemia, Z79.4 - terminologist (current) use of insulin Coding Level of Care Code Est Pt Level 4 (31244) Diagnoses Type 2 diabetes mellitus with hyperglycemia, with long-term current use of insulin E11.65; Z79.4
[2025-03-23 14:37] VITALS: BP 122/72; PULSE 63; O2SAT 97; BMI 31.1
[2025-03-23 14:49] LABS: Glucose, Whole Blood 376 mg/dL (60-115)
--- OUTSIDE RECORDS SUMMARY | 2025-03-23 15:48 | XMS_ITS | Clinical Summary ---
Author Organization [facility] Address [address] [place] [address] [address] [place] [address] Phone Care Team Providers Care Area Plant Manager Name Role Phone Sophie Enrique MD Primary Care Provider [phone] Allergies Active Allergy Reactions Criticality Noted Date [...] mg/dl PVNMA 08/08/2020 us [facility]version [facility] [id number] LICITED RESULTS Final Result PVNMA from Last 3 Months or Most Recently Relevant to Health Maintenance Insurance [facility] ([id number]) [facility] ([id number]) Care Teams Area Plant Manager Relationship Specialty Start Date End Date Sophie Enrique MD [address] [place], [place] PCP - General Internal Medicine 01/19/21
--- OUTSIDE RECORDS SUMMARY | 2025-03-23 15:48 | XMS_ITS | Clinical Summary ---
Author Organization [facility] Address [address] [place] [address] Care Team Providers Care Hot Bread Baker Name Role Phone Ani Sebastian Primary Care Provider [phone] Source Comments PLEASE NOTE, if this patient [...] aspirin 81 mg EC tabletIndications :History of MD (myocardial infarction),CAD (coronary artery disease) Take 1 Tab by mouth once daily. 30 Tab 4 4 Active blood-glucose meter monitoring kitIndications:DM (diabetes mellitus) ([facility]) as needed for blood glucose monitoring. 1 [...] (GLUCOPHAGE) 1,000 mg tabletIndications :DM (diabetes mellitus) ([facility]) Take 1 Tab by [...] diagnostic (FREESTYLE TEST) stripsIndications :DM (diabetes mellitus) ([facility]) Use bid and prn. Dx: 250.02 100 Each 3 4 Active lancetsIndication s:DM (diabetes mellitus) ([facility]) Freestyle freedom lite. Use bid and prn. Dx: 250.02 100 Each 3 4 Active BD INSULIN PEN NEEDLE UF 31 X 5/16 USE FOUR TIMES DAILY. 150 Each 3 4 Active insulin glargine (LANTUS SOLOSTAR PEN) 100 unit/mL (3 mL) injectionIndicati ons:DM (diabetes mellitus) ([facility]) Inject 50 Units into the skin once daily. 10 Each 3 4 Active HUMALOG KWIKPEN 100 unit/mL injection INJECT VIA SLIDING SCALE THREE TIMES DAILY WITH MEALS. MAX 60 UNITS PER DAY 15 mL 11 4 Active Active Problems Problem Noted Date Diagnosed Date Hypomagnesemia 12/07/2013 Overview (12/07/2013): = 1.6 on 12/02/13 Dizziness 12/07/2013 Overview (12/07/2013): Likely due BPPV DM (diabetes mellitus) ([facility]) 4 HTN (hypertension) 08/07/2013 GERD (gastroesophageal reflux disease) 4 Hyperlipidemia 08/07/2013 History of MD (myocardial infarction) 08/07/2013 Overview (08/07/2013): 2004 CAD [...] Treatment Not on file [place] Care Teams Hot Bread Baker Relationship Specialty Start Date End Date Ain Sebastian PA [address] [place] [id number] PCP - General Internal Medicine 08/07/13
== END 2025-03-23 15:02 | disposition home or self-care (01) ==
LOC: HO.ENCR 14:27
PROVIDERS: PCP Internal Medicine; Visit Provider Internal Medicine Endocrinology, Diabetes & Metabolism
DX: E11.65 Type 2 diabetes mellitus with hyperglycemia (principal); Z79.4 Long term (current) use of insulin
CPT/HCPCS: 99214

== ENCOUNTER → 2025-03-23 14:26 | Outpatient (BNVA) | payer OTHER, SELFPAY | PROVIDERS: PCP Internal Medicine; Visit Provider Internal Medicine Endocrinology, Diabetes & Metabolism | DX: E11.65 Type 2 diabetes mellitus with hyperglycemia (principal); Z79.4 Long term (current) use of insulin | CPT/HCPCS: 82947; 83036; 99212 ==

== ENCOUNTER 2025-03-30 14:14 | Outpatient (AMB) | payer OTHER, SELFPAY ==
[2025-03-30 14:37] VITALS: BP 116/62; PULSE 60; O2SAT 93; BMI 31.3
--- NOTE | 2025-03-30 14:37 | MHC.PC.OV ---
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 Accompanied by: Self / Same As Patient Allergies Penicillins Allergy (Intermediate, Verified 03/30/25 14:49) ITCHING metformin Adverse Reaction (Intermediate, Verified 03/30/25 14:49) renal function changes Medication List - Last Reconciled 03/30/25 by Sophie Fulton MD [adult diapers pull-ups Use 8 times per day] amlodipine 5 mg PO DAILY 90 days aspirin (Enteric Coated Aspirin) 81 mg PO DAILY bisacodyl (Dulcolax (bisacodyl)) 10 mg (2 x 5 mg) PO BEDTIME 2 days blood sugar diagnostic (FreeStyle Lite Strips) As directed 4 times a day blood-glucose meter (FreeStyle Lite Meter kit) As directed blood-glucose sensor (FreeStyle Manjit 3 Sensor device) As directed blood-glucose,oxyacetylene welder,cont (FreeStyle Manjit 3 Marvin) As directed CPAP (CPAP Machine/Device) As directed empagliflozin (Jardiance) 10 mg PO DAILY 30 days famotidine 20 mg PO BEDTIME 90 days wvvtmfmehhd-slxxsfeiy-lpjgfdmm 100-62.5-25 mcg (Trelegy Ellipta) 1 inh inhalation DAILY 28 days furosemide 40 mg (2 x 20 mg) PO DAILY 90 days galantamine ER 16 mg PO QAM insulin aspart U-100 (Novolog FlexPen U-100 Insulin aspart) 26 units (0.26 mL) subcut TIDWMEAL 90 days insulin degludec (Tresiba FlexTouch U-200 insulin) 46 units (0.23 mL) subcut BEDTIME 90 days latex gloves (Latex Gloves, Large) Use 8 pairs per day losartan 25 mg PO DAILY 90 days meclizine 25 mg PO DAILY PRN 30 days metoprolol succinate ER 100 mg PO DAILY peg 3350-electrolytes 236-22.74-6.74 -5.86 gram (Golytely) 240 mL PO Q10M 1 day pen needle, diabetic 4 times a day As directed [personal wipes Use 8 per day prn] pramipexole ER 4.5 mg PO DAILY rosuvastatin 40 mg PO DAILY underpads (Bed Underpads) Use 5 pads per day Ventolin HFA 90 mcg/actuation (albuterol sulfate) 2 puffs PO Q6H PRN NS Tobacco use date assessed: 03/30/25 Fall risk assessment: No Falls in past year Last assessed Fall Risk: 03/30/25 Dental Screening Dental Screen Date: 03/30/25 Did you have a dental visit in the last 12 months?: Yes Did you have a dental problem in the last 6 months where you did not have access to dental care?: No Was dental information given to patient?: Patient has dentist HPI HPI Comments History of Present Illness Details The patient is a 74-year-old male presenting with the management of multiple chronic conditions including Type 2 Diabetes Mellitus, Hypertension, Chronic Systolic Congestive Heart Failure, and Chronic Kidney Disease Stage 3. The patient has a history of Type 2 Diabetes Mellitus, with a recent A1c of 12.9, indicating poor glycemic control. He has been prescribed insulin and Mounjaro to manage his blood glucose levels. The patient follows up with endocrinology for diabetes management. The patient is also diagnosed with Hypertension, currently managed with amlodipine 5 mg, which has been effective in controlling his blood pressure. He has Chronic Systolic Congestive Heart Failure with an ejection fraction of 40-45% as per the echocardiogram conducted in November. The patient is on metoprolol, which is beneficial for his heart condition. He is under the care of a direct entry midwife for ongoing management. The patient has Chronic Kidney Disease Stage 3, with a recent GFR of 42. He is followed by a mechanical tech for this condition. The patient has Obstructive Sleep Apnea and uses a CPAP machine for management. He is scheduled for a follow-up with pulmonology next month. The patient also has Hyperlipidemia, managed with rosuvastatin, with the last LDL recorded at 67 mg/dL. He reports dizziness, for which he takes meclizine. The patient is scheduled for gallbladder surgery, indicating a diagnosis of gallbladder disease. 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 Reactive airway disease Hospital discharge follow-up Bronchitis URI (upper respiratory infection) Tremors of nervous system Carpal tunnel syndrome Screen for colon cancer Physical exam Cellulitis Left leg swelling Visual hallucination Cough Acute respiratory disease Influenza A Right upper quadrant abdominal pain Hallucinations Hypoglycemia due to type 2 diabetes mellitus Chronic heart failure with preserved ejection fraction (HFpEF) Cardiomyopathy Acute on chronic systolic (congestive) heart failure Defibrillator discharge ROE (obstructive sleep apnea) Hypothyroidism Obesity due to excess calories ROE on CPAP Ischemic cardiomyopathy Atherosclerotic cardiovascular disease GERD (gastroesophageal reflux disease) Hypothyroidism Type 2 diabetes mellitus with hyperglycemia, with long-term current use of insulin Essential hypertension Chronic systolic (congestive) heart failure ICD (implantable cardioverter-defibrillator) in place CAD (coronary artery disease) Hyperlipidemia LDL goal <70 Dyspnea Insomnia Delusion of persecution Surgical History Epidermal inclusion cyst Lump of skin Hx of CABG (~2018) Status post aorto-coronary artery bypass graft Postop check H/O inguinal hernia repair History of tooth extraction History of open heart surgery History of bilateral cataract extraction Family History Father No problems noted. Mother CVD (cardiovascular disease) Social History Household Members: Spouse Housing: House Do you presently have visiting nurse or other home services: Yes (every 15 days) Alcohol intake: former Patient Tobacco Use Status: Former Tobacco user e-Cigarette/Vaping Use: Never Used Second Hand Smoke Exposure: Yes service: No Current occupational status: retired Current occupational exposures/hazards: No Cognitive needs: Yes Hearing needs: No Vision needs: Yes Questionnaire PHQ-9 Over the last 2 weeks, how often have you been bothered by any of the following problems? 1. Little interest or pleasure in doing things: not at all 2. Feeling down, depressed, or hopeless: not at all 3. Trouble falling or staying asleep, or sleeping too much: not at all 4. Feeling tired or having little energy: not at all 5. Poor appetite or overeating: not at all 6. Feeling bad about yourself - or that you are a failure or have let yourself or your family down: not at all 7. Trouble concentrating on things, such as reading the newspaper or watching television: not at all 8. Moving or speaking so slowly that other people could have noticed. Or the opposite - being so fidgety or restless that you have been moving around a lot more than usual: not at all 9. Thoughts that you would be better off or of hurting yourself in some way: not at all Total score: 0 Depression Screening Interpretation: Negative Depression Screening Done: Yes 53075 - PHQ-9 Billing: Yes Source: Developed by Drs. Godwin Street, Luisa Carlin, Lawrence Escamilla and colleagues, with an educational sonia from [employer]. Thrive Questionnaire Date Thrive assessed: 03/30/25 I am a: Patient What is your living situation today?: I have a steady place to live Within the past 12 months, did the food you bought not last and you didn't have the money to get more?: I choose not to answer this question Within the past 12 months, did you worry whether your food would run out before you got money to buy more?: I choose not to answer this question Do you have trouble paying for medicines?: I choose not to answer this question Do you have trouble getting transportation to medical appointments?: I choose not to answer this question Do you have trouble paying your heating and electricity bill?: I choose not to answer this question Do you have trouble taking care of your child, family member or friend?: I choose not to answer this question Do you have trouble with day-to-day activities such as bathing, preparing meals, shopping, managing finances, etc.?: I choose not to answer this question Are you currently unemployed and looking for a job?: I choose not to answer this question Are you interested in more education?: I choose not to answer this question Please select the resources that you would like help with: None Currently or been in a relationship where the following occur: No concerns reported THRIVE Score: 0 AUDIT C Alcohol Use Questionnaire (AUDIT-C) 1. How often do you have a drink containing alcohol?: Never 3. How often do you have six or more drinks on one occasion?: Never Total Score: 0 Score Reviewed/Action Taken: No RENNY-7 AMB Questionnaire RENNY-7 Date RENNY - 7 assessed: 03/30/25 Feeling nervous, anxious, or on edge: 0 = Not at all Not being able to stop or control worryin = Not at all Worrying too much about different things: 0 = Not at all Trouble relaxin = Not at all Being so restless that it is hard to sit still: 0 = Not at all Becoming easily annoyed or irritable: 0 = Not at all Feeling afraid as if something awful might happen: 0 = Not at all Total RENNY-7 score (0-4 normal; 5-9 mild; 10-14 moderate; 15-21 severe): 0 Source: Developed by Drs. Godwin Street, Luisa Carlin, Lawrence Escamilla and colleagues, with an educational sonia from [employer]. RENNY-7 Assessment Billing RENNY-7 Assessment Tool: RENNY-7 Assessment 21793 Review of Systems Const All systems reviewed & are unremarkable except as noted in HPI and below Card Denies chest pain at rest, Denies chest pain with activity, Denies edema, Denies irregular heart rhythm, Denies claudication, Denies dyspnea, Denies dyspnea on exertion, Denies orthopnea, Denies paroxysmal nocturnal dyspnea and Denies slow heart rate Resp Denies cough, Denies dyspnea and Denies dyspnea on exertion GI Denies abdominal pain, Denies change in bowel habits, Denies excessive flatus, Denies nausea and Denies vomiting Physical exam (Primary Care) Vital Signs: Last Vital Signs Pulse 60 03/30/25 14:37 BP 116/62 03/30/25 14:37 Pulse Ox 93 03/30/25 14:37 Oxygen Delivery Method Room Air 03/30/25 14:37 BMI result Body Mass Index 31.3 BMI Assessment/Plan discussion: High BMI High, discussed plan: lifestyle, weight reduction, dietary and physical activity Tobacco/Smoking Status: Tobacco use Status Tobacco use date assessed 03/30/25 03/30/25 14:42 Patient Tobacco Use Status Former Tobacco user 03/30/25 14:42 e-Cigarette/Vaping Use Never Used 03/30/25 14:42 PHQ-9: PHQ-9 Score PHQ-9: Total score 0 03/30/25 14:42 Depression Screening Interpretation: Negative Thrive Assessment: Date of Thrive Assessment Date Thrive assessed 03/30/25 03/30/25 14:42 Currently or been in a relationship where the following occur: No concerns reported Resp Effort & Inspection: normal respiratory effort Auscultation: clear to auscultation bilaterally Cardio Jugular venous distension: no JVD Rate: regular rate Rhythm: regular rhythm Heart sounds: S1 normal heart sound present and S2 normal heart sound present Extrem General: Yes full ROM Coding Level of Care Code Est Pt Level 4 (83964) Complex EM visit Add On G2211 Diagnoses Essential hypertension I10 Chronic systolic (congestive) heart failure I50.22 Hyperlipidemia LDL goal <70 E78.5 Type 2 diabetes mellitus with hyperglycemia, with long-term current use of insulin E11.65; Z79.4 Stage 3b chronic kidney disease N18.32 Chronic kidney disease stage 3 subtype: stage 3b (GFR 30-44) ROE (obstructive sleep apnea) G47.33 Additional Codes RENNY-7 Assessment Billing - RENNY-7 Assessment Tool: RENNY-7 Assessment 19618 ([id number]) PHQ-9 - 96562 - PHQ-9 Billing: Yes ([id number]) Time Spent (min) 25 Assessment & Plan Assessment & Plan (1) Essential hypertension: Code(s): I10 - Essential (primary) hypertension Category: Medical (2) Chronic systolic (congestive) heart failure: Code(s): I50.22 - Chronic systolic (congestive) heart failure Category: Medical (3) Hyperlipidemia LDL goal <70: Code(s): E78.5 - Hyperlipidemia, unspecified Category: Medical (4) Type 2 diabetes mellitus with hyperglycemia, with long-term current use of insulin: Code(s): E11.65 - Type 2 diabetes mellitus with hyperglycemia; 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 1. Essential (primary) hypertension I10 The patient's hypertension is currently well-managed with amlodipine 5 mg. 2. Chronic systolic (congestive) heart failure I50.22 HCC 85 The patient has Chronic Systolic Congestive Heart Failure with an ejection fraction of 40-45%. He is on metoprolol for heart failure management and is under cardiology care. 3. Chronic kidney disease, stage 3 unspecified N18.30 HCC 138 The patient has Chronic Kidney Disease Stage 3 with a GFR of 42. He is followed by a mechanical tech for ongoing management. 4. Obstructive sleep apnea (adult) (pediatric) G47.33 The patient uses a CPAP machine for Obstructive Sleep Apnea. He is scheduled for a follow-up with pulmonology next month. 5. Hyperlipidemia, unspecified E78.5 The patient's hyperlipidemia is managed with rosuvastatin, with the last LDL recorded at 67 mg/dL. 6. Type 2 diabetes mellitus with hyperglycemia E11.65 HCC 18 Orders: Orders Microalbumin, Random (w Creat) 4 Months R80.9 - Proteinuria, unspecified Lipid Panel 4 Months E78.5 - Hyperlipidemia, unspecified Vitamin D 25-OH Total 4 Months E55.9 - Vitamin D deficiency, unspecified Comprehensive [place]. Panel Fast 4 Months I50.22 - Chronic systolic (congestive) heart failure NT-proBNP 4 Months I50.22 - Chronic systolic (congestive) heart failure Thyroid Stimulating Hormone 4 Months E03.9 - Hypothyroidism, unspecified Medications: New meclizine 25 mg PO DAILY PRN 30 tabs 0RF motion sickness 30 days tirzepatide (Mounjaro) for 4 weeks 2.5 mg (0.5 mL) subcut QWEEK 2 mL 0RF 4 weeks E11.65 - Type 2 diabetes mellitus with hyperglycemia, Z79.4 - penitentiary (current) use of insulin Changed From insulin degludec (Tresiba FlexTouch U-200 insulin) 46 units (0.23 mL) subcut BEDTIME 90 days 21 mL 3RF To insulin degludec (Tresiba FlexTouch U-200 insulin) 50 units (0.25 mL) subcut BEDTIME 22.5 mL 3RF 90 days Refilled irwxrefmbvk-nxcirnlpr-qtnukqxo 100-62.5-25 mcg (Trelegy Ellipta) 1 inh inhalation DAILY 28 ea 6RF 28 days J45.909 - Unspecified asthma, uncomplicated Ventolin HFA 90 mcg/actuation (albuterol sulfate) 2 puffs PO Q6H PRN 18 ea 5RF for wheezing NS
--- OUTSIDE RECORDS SUMMARY | 2025-03-30 15:12 | XMS_ITS | Clinical Summary ---
Author Organization [facility] Address [address] [place] [address] [address] [place] [address] Phone Care Team Providers Care Drapery Cutter Name Role Phone Sophie Enrique MD Primary Care Provider [phone] Allergies Active Allergy Reactions Criticality Noted Date [...] mg/dl PVNMA 08/08/2020 us Rtama Conversion LAB [id number] LICITED RESULTS Final Result PVNMA from Last 3 Months or Most Recently Relevant to Health Maintenance Insurance [facility] ([id number]) [facility] ([id number]) Care Teams Drapery Cutter Relationship Specialty Start Date End Date Sophie Enrique MD [address] [place], [place] PCP - General Internal Medicine 01/19/21
== END 2025-03-30 15:06 | disposition home or self-care (01) ==
LOC: HO.HMCH 14:15
PROVIDERS: PCP Internal Medicine; Visit Provider Internal Medicine
DX: I12.9 Hypertensive chronic kidney disease with stage 1 through stage 4 chronic kidney disease, or unspecified chronic kidney disease (principal); I50.22 Chronic systolic (congestive) heart failure; E11.65 Type 2 diabetes mellitus with hyperglycemia; Z79.4 Long term (current) use of insulin; N18.32 Chronic kidney disease, stage 3b; E78.5 Hyperlipidemia, unspecified; G47.33 Obstructive sleep apnea (adult) (pediatric)

== ENCOUNTER → 2025-03-30 14:14 | Outpatient (BNVA) | payer OTHER, SELFPAY | PROVIDERS: PCP Internal Medicine; Visit Provider Internal Medicine | DX: Z00.00 Encounter for general adult medical examination without abnormal findings (principal); E11.22 Type 2 diabetes mellitus with diabetic chronic kidney disease; I13.0 Hypertensive heart and chronic kidney disease with heart failure and stage 1 through stage 4 chronic kidney disease, or unspecified chronic kidney disease; I50.22 Chronic systolic (congestive) heart failure; N18.30 Chronic kidney disease, stage 3 unspecified; G47.33 Obstructive sleep apnea (adult) (pediatric); E78.5 Hyperlipidemia, unspecified; E11.65 Type 2 diabetes mellitus with hyperglycemia; N18.32 Chronic kidney disease, stage 3b; Z79.4 Long term (current) use of insulin; Z99.89 Dependence on other enabling machines and devices | CPT/HCPCS: 96127; 99212 ==

== ENCOUNTER → 2025-04-01 23:59 | Outpatient (BNV) | payer OTHER, SELFPAY ==
--- NOTE | 2025-04-04 13:14 | MHC.OFFVIS ---
Intake Visit Reasons: Remote HF monitoring- Medtronic Allergies Penicillins Allergy (Intermediate, Verified 03/30/25 14:49) ITCHING metformin Adverse Reaction (Intermediate, Verified 03/30/25 14:49) renal function changes [facility] Medical History Gallstones Chronic kidney disease Foot abrasion, infected Type 2 diabetes mellitus Paresthesia Lumbar pain Sleep apnea Abnormal laboratory test Bibasilar crackles Encounter for interrogation of cardiac defibrillator HTN (hypertension) ROE (obstructive sleep apnea) CHF (congestive heart failure) Physical exam COVID-19 Bronchitis [id number]-[id number] syndrome Reactive airway disease Hospital discharge follow-up Bronchitis URI (upper respiratory infection) Tremors of nervous system Carpal tunnel syndrome Screen for colon cancer Physical exam Cellulitis Left leg swelling Visual hallucination Cough Acute respiratory disease Influenza A Right upper quadrant abdominal pain Hallucinations Hypoglycemia due to type 2 diabetes mellitus Chronic heart failure with preserved ejection fraction (HFpEF) Cardiomyopathy Acute on chronic systolic (congestive) heart failure Defibrillator discharge ROE (obstructive sleep apnea) Hypothyroidism Obesity due to excess calories ROE on CPAP Ischemic cardiomyopathy Atherosclerotic cardiovascular disease GERD (gastroesophageal reflux disease) Hypothyroidism Type 2 diabetes mellitus with hyperglycemia, with long-term current use of insulin Essential hypertension Chronic systolic (congestive) heart failure ICD (implantable cardioverter-defibrillator) in place CAD (coronary artery disease) Hyperlipidemia LDL goal <70 Dyspnea Insomnia Delusion of persecution Surgical History Epidermal inclusion cyst Lump of skin Hx of CABG (~2019) Status post aorto-coronary artery bypass graft Postop check H/O inguinal hernia repair History of tooth extraction History of open heart surgery History of bilateral cataract extraction Family History Father No problems noted. Mother CVD (cardiovascular disease) Social History Household Members: Spouse Housing: House Do you presently have visiting nurse or other home services: Yes (every 15 days) Alcohol intake: former Patient Tobacco Use Status: Former Tobacco user e-Cigarette/Vaping Use: Never Used Second Hand Smoke Exposure: Yes service: No Current occupational status: retired Current occupational exposures/hazards: No Cognitive needs: Yes Hearing needs: No Vision needs: Yes Office Procedures Cardiac Device Check Cardiac Device Check Details: Date of service- 04/01/2025; based on impedance data and physiological variables, there is no evidence of worsening congestive heart failure. [id number] Cardiac Device Interrogation, cardio physiologic monitor Procedure code (CPT) selection complete Assessment & Plan Assessment & Plan (1) ICD (implantable cardioverter-defibrillator) in place: Comment: Medtronic single chamber Code(s): Z95.810 - Presence of automatic (implantable) cardiac defibrillator Category: Medical (2) Ischemic cardiomyopathy: Code(s): I25.5 - Ischemic cardiomyopathy Category: Medical (3) Chronic systolic (congestive) heart failure: Code(s): I50.22 - Chronic systolic (congestive) heart failure Category: Medical Plan x Coding Level of Care Code Procedure Only Diagnoses ICD (implantable cardioverter-defibrillator) in place Z95.810 Ischemic cardiomyopathy I25.5 Chronic systolic (congestive) heart failure I50.22 CPT Codes Cardiac Device Check - Cardiac Device 15: [id number] Cardiac Device Interrogation, cardio physiologic monitor ([id number])
== END ==
PROVIDERS: PCP Internal Medicine; Visit Provider Internal Medicine
DX: I25.5 Ischemic cardiomyopathy (principal); Z95.810 Presence of automatic (implantable) cardiac defibrillator; I50.22 Chronic systolic (congestive) heart failure
CPT/HCPCS: 93297

== ENCOUNTER 2025-04-29 13:20 | Outpatient (AMB) | payer OTHER, SELFPAY ==
--- NOTE | 2025-04-29 13:22 | MHC.OFFVIS ---
Vital Signs 04/29/25 13:23 Height 5 ft 7 in Weight 200 lb 9.93 oz BMI 31.4 BP 104/56 L Blood Pressure Location Rt brachial Position Sitting Pulse 72 Pulse Source Pulse Oximeter Pulse Oximetry (%) 92 Oxygen Delivery Method Room Air Intake Visit Reasons: Obstructive sleep apnea Accompanied by: Self / Same As Patient Allergies Penicillins Allergy (Intermediate, Verified 04/29/25 13:26) ITCHING metformin Adverse Reaction (Intermediate, Verified 04/29/25 13:26) renal function changes HPI Comments Details: The patient is a 74-year-old gentleman with a known history of CAD status post surgery in addition to obstructive sleep apnea. His last sleep study occurred in [place] back in 2018 when he had a in-lab study demonstrating an AHI of 28 with hypoxia down to 75%. The patient is placed on CPAP in the CPAP therapy was very effective beneficial. However, the CPAP malfunction and is no longer working. The patient is been struggling with significant untreated obstructive sleep apnea. His is concerned because he stops breathing at nighttime and she needs to wake him up. He has significant snoring and also wakes him up with shortness of breath. He does have headaches at times. I am concerned because of increased cardiovascular risk. This point the patient needs to get another CPAP is set up with the [employer]. In the meantime the patient also complains of dyspnea on exertion. Moderate severity. He has been deconditioned and also has gained weight. He also does likely contributing. He has had multiple spirometries demonstrating some degree of decrease in the forced vital capacity. On examination appears to have some crepitations as well as crackles. He denies any significant exposure to any fumes or toxins. 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 Denies any exposure to any mold or farm animals. 10/15/2022 the patient is here for pulmonary follow-up visit. He continues to have significant daytime drowsiness. His Florence score continues to be elevated 06/06/2024. He is frustrated that he cannot use CPAP. The patient does have significant cardiovascular risk factors. We had him have a repeat sleep study demonstrating severe sleep apnea with an AHI of 37 with significant hypoxia. I am concerned that he is having untreated severe sleep apnea and this could result in worse cardiovascular outcomes. The patient needs to be set up with a new DME company and get re-initiated with CPAP. Therefore will send a script to a local DME company. In the meantime he continues to use his respiratory medicine with good effect. Denies any chest tightness or wheezing. He has not had to use his rescue inhaler. No recent imaging studies to review. Will send a script to his DME company for a new CPAP and ultimately have him return in 3-4 months with the CPAP in order to review the results and download. 02/11/2023 the patient is here for a pulmonary follow-up visit. He has lost about 20 lb. The patient has not been using his CPAP regularly. We did review his sleep study again demonstrating severe sleep apnea. The patient understands that he needs to use the machine specially with his cardiovascular risk factors. His mask is to type rate now he does not like it. Will go ahead and request a different mask for him. I did provide him with a medium F30 mask with the hope that he can tolerated better. He is complaining of neuropathy pains in his upper and lower extremities. He had been using trazodone for sleep. But then he was prescribed gabapentin which I believe will be a better agent. Therefore he can stop the trazodone may continue the gabapentin. The patient did not bring his CPAP in. He will bring it to the next visit. From a respiratory status the patient seems to be doing well at the current respiratory regimen. He has not required any prednisone. He does not use his rescue inhaler often. 06/24/2023 the patient is here for a pulmonary follow-up visit. The patient is doing a lot better. He continues to lose weight. He has been using the CPAP now with a nasal mask. He has been tolerating it much better. I did download his machine. It appears that he is using it 83% of the time in more than 4 hours a night. The patient's set up APAP with a maximum pressure of 14 cm. Unfortunately his AHI continues be elevated close to 10. appears to be mainly apneic episodes so therefore will increase the maximum pressure to 16 cm water. The patient may need additional pressures. Still he will try this pressure And see if his effective increase it accordingly. If he continues to have an elevated AHI even at maximum PAP pressures then we need to further discuss the possibility of a BiPAP. From a respiratory status is doing well on his current medicines. He continues to monitor closely his p.o. intake and watching closely his sodium intake. He is taking care of himself and making significant lifestyle changes to improve his overall health. He is already seeing some drastic improvement with some weight loss. He was briefly admitted to the hospital an treated for CHF. 12/16/2023 the patient is here for a pulmonary follow-up visit. Overall the patient has been doing well. He has been using the CPAP every night with a nasal mask. He did get a download from the CPAP and his AHI is down 3.5. His current CPAP settings are 12 to 18 cm. Sometimes he feels the pressure is too low. Of switch him over to a fixed CPAP with a pressure of 15 cm see if we can adjusted that way. I did also add a ramp of 13 cm to start with. If he has any issues with that he will call and will adjust the CPAP online. For some reason his DME company has not been able to get supplies. He is registered in does have a machine that some working order. I will submit another prescription to his DME company [employer] in order for him to start getting supplies. I did provide him with another new sample of a nasal mask in order to continue to provide him with effective equipment in order for him to be able to use it. His hose is broken but he put tape on it therefore he still can use it some. I am hopeful that he can get supplies from his DME company soon. From a respiratory status the patient is doing well has not had any exacerbations. 04/20/2024 the patient is here for a pulmonary follow-up visit. The patient is still doing fairly well. He is trying to use his CPAP as much as possible. He finds that the CPAP has been affecting beneficial. However, he has not been able to get supplies with the DME company. I did provide him with a mask the last visit. Although still having air leakage. Therefore, I did have a F20 AirTouch foam mask medium in he did try anything to fit well. Therefore will request a from his [employer] company. In addition to that his machine is now older than 5 years. Has broken buttons. Appears to be broken. Will request a replacement machine from [employer] this time. The patient also continues uses respiratory therapy with good effect. Has not had any recent flare-ups. Otherwise he is doing well. Will continue with current respiratory therapy. 01/25/2025 the patient is here for a pulmonary follow-up visit. The patient is having a hard time with his sleep. His [employer] company is no longer given his supplies. He is no longer active with the [employer] company. His machine was taken away he had an old machine that he could use. He struggles when he does not use his CPAP. His Florence score is elevated 12/24. Will go ahead and request a repeat sleep study for him in order to get him reactivated with the [employer] company in order for him to be able to treat the sleep apnea effectively specially with his increased cardiovascular risk. Patient also complained of significant abdominal discomfort while coming back from [place]. He was diagnosed with cholecystitis I believe at [facility]. He also was diagnosed with pneumonia. He was treated however did not feel like he could handle surgery at that time so therefore the cholecystectomy surgery was held. Now he is following up with surgery to see if he still needs to have surgery. Overall he is feeling better. Breathing is better overall. He is using his inhalers as prescribed. He did start Trelegy 100 which seems to be effective in beneficial. He also has a rescue inhaler. His respiratory exam is reassuring. Will plan to follow-up in 3-4 months after her sleep study in order to get him activated again and treating his sleep apnea effectively. 04/29/2025 the patient is here for a pulmonary follow-up visit. She continues to have significant daytime drowsiness. Florence score is elevated 11/24. He has significant cardiovascular risk factors. The patient does follow closely with Cardiology. Unfortunately he has not been able to be on PAP therapy was it was taken away. The patient did undergo a sleep study recently. I did personally review the split study. He does have severe sleep apnea. He was placed on PAP therapy and was titrated up to BiPAP 18/14. With that setting his AHI did normalize and his oxygenation was reasonable. In his to start BiPAP therapy at this time urgently to treat his severe sleep apnea and cardiovascular risk factors. In the meantime his blood sugar was significantly elevated at 300 with a hemoglobin A1c of 12.1. In part treating the sleep apnea will help with his diabetes. But he also needs further guidance. Will go ahead and refer her to a dietitian. He will continue to work closely with the endocrine as he already has multiple complications from his diabetes. The patient will follow-up in 4 months and he will bring his PAP therapy to the visit. If he has any issues prior to this he will call for further recommendations. 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 Reactive airway disease Hospital discharge follow-up Bronchitis URI (upper respiratory infection) Tremors of nervous system Carpal tunnel syndrome Screen for colon cancer Physical exam Cellulitis Left leg swelling Visual hallucination Cough Acute respiratory disease Influenza A Right upper quadrant abdominal pain Hallucinations Hypoglycemia due to type 2 diabetes mellitus Chronic heart failure with preserved ejection fraction (HFpEF) Cardiomyopathy Acute on chronic systolic (congestive) heart failure Defibrillator discharge ROE (obstructive sleep apnea) Hypothyroidism Obesity due to excess calories ROE on CPAP Ischemic cardiomyopathy Atherosclerotic cardiovascular disease GERD (gastroesophageal reflux disease) Hypothyroidism Type 2 diabetes mellitus with hyperglycemia, with long-term current use of insulin Essential hypertension Chronic systolic (congestive) heart failure ICD (implantable cardioverter-defibrillator) in place CAD (coronary artery disease) Hyperlipidemia LDL goal <70 Dyspnea Insomnia Delusion of persecution Surgical History Epidermal inclusion cyst Lump of skin Hx of CABG (~2019) Status post aorto-coronary artery bypass graft Postop check H/O inguinal hernia repair History of tooth extraction History of open heart surgery History of bilateral cataract extraction Family History Father No problems noted. Mother CVD (cardiovascular disease) Social History Household Members: Spouse Housing: House Do you presently have visiting nurse or other home services: Yes (every 15 days) Alcohol intake: former Patient Tobacco Use Status: Former Tobacco user e-Cigarette/Vaping Use: Never Used Second Hand Smoke Exposure: Yes service: No Current occupational status: retired Current occupational exposures/hazards: No Cognitive needs: Yes Hearing needs: No Vision needs: Yes Review of Systems Const Reports daytime sleepiness, Reports difficulty sleeping, Denies snoring and Denies stops breathing during sleep Eyes Reports no additional complaints, Denies change in vision and Denies other visual disturbances Card Denies chest pain at rest, Denies chest pain with activity, Denies edema, Denies irregular heart rhythm, Denies claudication, Denies dyspnea, Denies dyspnea on exertion, Denies orthopnea, Denies paroxysmal nocturnal dyspnea and Denies slow heart rate Resp Reports cough, Denies dyspnea, Denies dyspnea on exertion and Denies snoring GI Denies abdominal pain, Denies change in bowel habits, Denies excessive flatus, Denies nausea and Denies vomiting Musc Denies abnormal gait, Denies atrophy, Denies deformity, Denies limited range of motion and Reports tingling Skin/Breast Denies bleeding lesions, Denies changing lesions and Denies rash Neuro Denies abnormal gait, Reports tingling and Reports paresthesias Physical Exam Vital Signs: Last Vital Signs Pulse 72 04/29/25 13:23 BP 104/56 L 04/29/25 13:23 Pulse Ox 92 04/29/25 13:23 Oxygen Delivery Method Room Air 04/29/25 13:23 BMI result Body Mass Index 31.4 Const General: cooperative, comfortable and no acute distress Orientation/consciousness: patient oriented x3 HEENT Other: Unremarkable Neck Neck: Yes normal visual inspection Chest Chest palpation & inspection: normal inspection of the chest Resp Effort & Inspection: normal respiratory effort Auscultation: no crackles, no wheezes and diminished lung sounds Cardio Palpation: normal PMI Heart sounds: S1 normal heart sound present, S2 normal heart sound present, no gallops, no murmurs and no rubs GI Palpation (GI): Soft to palpation Back/Spine/Pelvis Other: unremarkable Skin General skin exam: no rashes or lesions noted Neuro General: patient oriented x3 Extrem General: Yes edema (1+) Psych Mental Status: mental status grossly normal Assessment & Plan Assessment & Plan (1) Reactive airway disease: Code(s): J45.909 - Unspecified asthma, uncomplicated Category: Medical Qualifiers: Asthma complication type: uncomplicated Asthma persistence: persistent Asthma severity: moderate Qualified Code(s): J45.40 - Moderate persistent asthma, uncomplicated (2) ROE (obstructive sleep apnea): Code(s): G47.33 - Obstructive sleep apnea (adult) (pediatric) Category: Medical (3) Dyspnea: Comment: Multifactorial. 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 Category: Medical (6) Obesity due to excess calories: Code(s): E66.09 - Other obesity due to excess calories Category: Medical Qualifiers: Body mass index: BMI 36.0-36.9 Obesity classification: adult class 2 (BMI 35 - 39.9) Serious obesity comorbidity presence: with serious comorbidity Qualified Code(s): E66.01 - Morbid (severe) obesity due to excess calories; Z68.36 - Body mass index [BMI] 36.0-36.9, adult Plan start BIPAP Continue short-acting beta agonist as needed Continue Symbicort twice a day 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 as tolerated 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 Follow-up 4 months Orders: Referrals Properties Supervisor Nutrition Referral E11.65 - Type 2 diabetes mellitus with hyperglycemia, E66.01 - Morbid (severe) obesity due to excess calories, Z68.36 - Body mass index [BMI] 36.0-36.9, adult, Z79.4 - halfway (current) use of insulin Coding Level of Care Code Est Pt Level 4 (74355) Complex EM visit Add On G2211 Diagnoses Moderate persistent reactive airway disease without complication J45.40 Asthma complication type: uncomplicated Asthma persistence: persistent Asthma severity: moderate ROE (obstructive sleep apnea) G47.33 Dyspnea on exertion R06.00 Dyspnea type: dyspnea on exertion Type 2 diabetes mellitus with hyperglycemia, with long-term current use of insulin E11.65; Z79.4 Class 2 severe obesity due to excess calories with serious comorbidity and body mass index (BMI) of 36.0 to 36.9 in adult E66.01; Z68.36 Body mass index: BMI 36.0-36.9 Obesity classification: adult class 2 (BMI 35 - 39.9) Serious obesity comorbidity presence: with serious comorbidity Time Spent (min) 17
[2025-04-29 13:23] VITALS: BP 104/56; PULSE 72; O2SAT 92; BMI 31.4
== END 2025-04-29 13:49 | disposition home or self-care (01) ==
LOC: HO.HPS 13:21
PROVIDERS: PCP Internal Medicine; Visit Provider Hospitalist
DX: J45.40 Moderate persistent asthma, uncomplicated (principal); G47.33 Obstructive sleep apnea (adult) (pediatric); R06.00 Dyspnea, unspecified; E11.65 Type 2 diabetes mellitus with hyperglycemia; Z79.4 Long term (current) use of insulin; E66.01 Morbid (severe) obesity due to excess calories; Z68.36 Body mass index [BMI] 36.0-36.9, adult
CPT/HCPCS: 99214; G2211

== ENCOUNTER → 2025-04-29 13:20 | Outpatient (BNVA) | payer OTHER, SELFPAY | PROVIDERS: PCP Internal Medicine; Visit Provider Hospitalist | DX: G47.33 Obstructive sleep apnea (adult) (pediatric) (principal); R06.00 Dyspnea, unspecified; E11.65 Type 2 diabetes mellitus with hyperglycemia; Z79.4 Long term (current) use of insulin; E66.01 Morbid (severe) obesity due to excess calories; Z68.36 Body mass index [BMI] 36.0-36.9, adult | CPT/HCPCS: 99212 ==

== ENCOUNTER → 2025-05-01 23:59 | Outpatient (BNV) | payer OTHER, SELFPAY ==
--- NOTE | 2025-05-11 14:02 | MHC.OFFVIS ---
Intake Visit Reasons: Remote HF monitroing- Medtronic Allergies Penicillins Allergy (Intermediate, Verified 04/29/25 13:26) ITCHING metformin Adverse Reaction (Intermediate, Verified 04/29/25 13:26) renal function changes [facility] Medical History Gallstones Chronic kidney disease Foot abrasion, infected Type 2 diabetes mellitus Paresthesia Lumbar pain Sleep apnea Abnormal laboratory test Bibasilar crackles Encounter for interrogation of cardiac defibrillator HTN (hypertension) ROE (obstructive sleep apnea) CHF (congestive heart failure) Physical exam COVID-19 Bronchitis [id number] syndrome Reactive airway disease Hospital discharge follow-up Bronchitis URI (upper respiratory infection) Tremors of nervous system Carpal tunnel syndrome Screen for colon cancer Physical exam Cellulitis Left leg swelling Visual hallucination Cough Acute respiratory disease Influenza A Right upper quadrant abdominal pain Hallucinations Hypoglycemia due to type 2 diabetes mellitus Chronic heart failure with preserved ejection fraction (HFpEF) Cardiomyopathy Acute on chronic systolic (congestive) heart failure Defibrillator discharge ROE (obstructive sleep apnea) Hypothyroidism Obesity due to excess calories ROE on CPAP Ischemic cardiomyopathy Atherosclerotic cardiovascular disease GERD (gastroesophageal reflux disease) Hypothyroidism Type 2 diabetes mellitus with hyperglycemia, with long-term current use of insulin Essential hypertension Chronic systolic (congestive) heart failure ICD (implantable cardioverter-defibrillator) in place CAD (coronary artery disease) Hyperlipidemia LDL goal <70 Dyspnea Insomnia Delusion of persecution Surgical History Epidermal inclusion cyst Lump of skin Hx of CABG (~2018) Status post aorto-coronary artery bypass graft Postop check H/O inguinal hernia repair History of tooth extraction History of open heart surgery History of bilateral cataract extraction Family History Father No problems noted. Mother CVD (cardiovascular disease) Social History Household Members: Spouse Housing: House Do you presently have visiting nurse or other home services: Yes (every 15 days) Alcohol intake: former Patient Tobacco Use Status: Former Tobacco user e-Cigarette/Vaping Use: Never Used Second Hand Smoke Exposure: Yes service: No Current occupational status: retired Current occupational exposures/hazards: No Cognitive needs: Yes Hearing needs: No Vision needs: Yes Office Procedures Cardiac Device Check Cardiac Device Check Details: Date of service- 05/01/2025; based on impedance data and physiological variables, there is no evidence of worsening congestive heart failure. [id number] Cardiac Device Interrogation, cardio physiologic monitor Procedure code (CPT) selection complete Assessment & Plan Assessment & Plan (1) ICD (implantable cardioverter-defibrillator) in place: Comment: Medtronic single chamber Code(s): Z95.810 - Presence of automatic (implantable) cardiac defibrillator Category: Medical (2) Ischemic cardiomyopathy: Code(s): I25.5 - Ischemic cardiomyopathy Category: Medical Plan x Coding Level of Care Code Procedure Only Diagnoses ICD (implantable cardioverter-defibrillator) in place Z95.810 Ischemic cardiomyopathy I25.5 CPT Codes Cardiac Device Check - Cardiac Device 15: [id number] Cardiac Device Interrogation, cardio physiologic monitor ([id number])
== END ==
PROVIDERS: PCP Internal Medicine; Visit Provider Internal Medicine
DX: I25.5 Ischemic cardiomyopathy (principal); Z95.810 Presence of automatic (implantable) cardiac defibrillator
CPT/HCPCS: 93297

== ENCOUNTER → 2025-05-01 23:59 | Outpatient (BNV) | payer OTHER, SELFPAY ==
--- NOTE | 2025-05-12 14:11 | MHC.OFFVIS ---
Intake Visit Reasons: Remote ICD check- Medtronic Allergies Penicillins Allergy (Intermediate, Verified 04/29/25 13:26) ITCHING metformin Adverse Reaction (Intermediate, Verified 04/29/25 13:26) renal function changes [facility] Medical History Gallstones Chronic kidney disease Foot abrasion, infected Type 2 diabetes mellitus Paresthesia Lumbar pain Sleep apnea Abnormal laboratory test Bibasilar crackles Encounter for interrogation of cardiac defibrillator HTN (hypertension) ROE (obstructive sleep apnea) CHF (congestive heart failure) Physical exam COVID-19 Bronchitis [id number] syndrome Reactive airway disease Hospital discharge follow-up Bronchitis URI (upper respiratory infection) Tremors of nervous system Carpal tunnel syndrome Screen for colon cancer Physical exam Cellulitis Left leg swelling Visual hallucination Cough Acute respiratory disease Influenza A Right upper quadrant abdominal pain Hallucinations Hypoglycemia due to type 2 diabetes mellitus Chronic heart failure with preserved ejection fraction (HFpEF) Cardiomyopathy Acute on chronic systolic (congestive) heart failure Defibrillator discharge ROE (obstructive sleep apnea) Hypothyroidism Obesity due to excess calories ROE on CPAP Ischemic cardiomyopathy Atherosclerotic cardiovascular disease GERD (gastroesophageal reflux disease) Hypothyroidism Type 2 diabetes mellitus with hyperglycemia, with long-term current use of insulin Essential hypertension Chronic systolic (congestive) heart failure ICD (implantable cardioverter-defibrillator) in place CAD (coronary artery disease) Hyperlipidemia LDL goal <70 Dyspnea Insomnia Delusion of persecution Surgical History Epidermal inclusion cyst Lump of skin Hx of CABG (~2019) Status post aorto-coronary artery bypass graft Postop check H/O inguinal hernia repair History of tooth extraction History of open heart surgery History of bilateral cataract extraction Family History Father No problems noted. Mother CVD (cardiovascular disease) Social History Household Members: Spouse Housing: House Do you presently have visiting nurse or other home services: Yes (every 15 days) Alcohol intake: former Patient Tobacco Use Status: Former Tobacco user e-Cigarette/Vaping Use: Never Used Second Hand Smoke Exposure: Yes service: No Current occupational status: retired Current occupational exposures/hazards: No Cognitive needs: Yes Hearing needs: No Vision needs: Yes Office Procedures Cardiac Device Check Cardiac Device Check Details: Date of service 05/01/2025; Battery life >5 years; normal lead parameters; no treated VT/VF; normal ICD function. [id number] Cardiac Interrogation, implant defibrillator w/interim Procedure code (CPT) selection complete Assessment & Plan Assessment & Plan (1) ICD (implantable cardioverter-defibrillator) in place: Comment: Medtronic single chamber Code(s): Z95.810 - Presence of automatic (implantable) cardiac defibrillator Category: Medical (2) Ischemic cardiomyopathy: Code(s): I25.5 - Ischemic cardiomyopathy Category: Medical Plan x Coding Level of Care Code Procedure Only Diagnoses ICD (implantable cardioverter-defibrillator) in place Z95.810 Ischemic cardiomyopathy I25.5 CPT Codes Cardiac Device Check - Cardiac Device 13: [id number] Cardiac Interrogation, implant defibrillator w/interim ([id number])
== END ==
PROVIDERS: PCP Internal Medicine; Visit Provider Internal Medicine
DX: I25.5 Ischemic cardiomyopathy (principal); Z95.810 Presence of automatic (implantable) cardiac defibrillator
CPT/HCPCS: 93295

== ENCOUNTER 2025-05-04 14:41 | Outpatient (AMB) | payer OTHER, SELFPAY ==
--- NOTE | 2025-05-04 15:43 | MHC.AMDMED ---
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 Required: Yes Polisher And Sander Language: Ugandan Allergies Penicillins Allergy (Intermediate, Verified 04/29/25 13:26) ITCHING metformin Adverse Reaction (Intermediate, Verified 04/29/25 13:26) renal function changes HPI Comprehensive Diabetes Asmnt Most Recent Diabetes Results: Hemoglobin A1c 8.2 % 08/14/19 Microalb/Creat Ratio, (<30) 1998.6 ug/mg cr H 03/19/25 Cholesterol, (<200) 125 mg/dL 03/19/25 HDL Cholesterol, (>40) 41 mg/dL 03/19/25 Triglycerides, (<150) 88 mg/dL 03/19/25 Creatinine, (0.5-1.4) 1.60 mg/dL H 03/19/25 BUN, (9-16) 27 mg/dL H 03/19/25 Sodium, (135-145) 134 mmol/L L 03/19/25 Potassium, (3.3-5.1) 5.0 mmol/L 03/19/25 Chloride, (96-108) 100 mmol/L 03/19/25 Carbon Dioxide, (22-29) 28 mmol/L 03/19/25 Calcium, (8.4-10.2) 9.6 mg/dL Δ 03/19/25 AST, (5-37) 31 U/L 03/19/25 ALT, (0-40) 27 U/L 03/19/25 Total Protein, (6.5-8.0) 7.1 g/dL 03/19/25 Albumin, (3.5-5.0) 3.6 g/dL 03/19/25 [facility] Medical History Gallstones Chronic kidney disease Foot abrasion, infected Type 2 diabetes mellitus Paresthesia Lumbar pain Sleep apnea Abnormal laboratory test Bibasilar crackles Encounter for interrogation of cardiac defibrillator HTN (hypertension) ROE (obstructive sleep apnea) CHF (congestive heart failure) Physical exam COVID-19 Bronchitis [id number] syndrome Reactive airway disease Hospital discharge follow-up Bronchitis URI (upper respiratory infection) Tremors of nervous system Carpal tunnel syndrome Screen for colon cancer Physical exam Cellulitis Left leg swelling Visual hallucination Cough Acute respiratory disease Influenza A Right upper quadrant abdominal pain Hallucinations Hypoglycemia due to type 2 diabetes mellitus Chronic heart failure with preserved ejection fraction (HFpEF) Cardiomyopathy Acute on chronic systolic (congestive) heart failure Defibrillator discharge ROE (obstructive sleep apnea) Hypothyroidism Obesity due to excess calories ROE on CPAP Ischemic cardiomyopathy Atherosclerotic cardiovascular disease GERD (gastroesophageal reflux disease) Hypothyroidism Type 2 diabetes mellitus with hyperglycemia, with long-term current use of insulin Essential hypertension Chronic systolic (congestive) heart failure ICD (implantable cardioverter-defibrillator) in place CAD (coronary artery disease) Hyperlipidemia LDL goal <70 Dyspnea Insomnia Delusion of persecution Surgical History Epidermal inclusion cyst Lump of skin Hx of CABG (~2019) Status post aorto-coronary artery bypass graft Postop check H/O inguinal hernia repair History of tooth extraction History of open heart surgery History of bilateral cataract extraction Family History Father No problems noted. Mother CVD (cardiovascular disease) Social History Household Members: Spouse Housing: House Do you presently have visiting nurse or other home services: Yes (every 15 days) Alcohol intake: former Patient Tobacco Use Status: Former Tobacco user e-Cigarette/Vaping Use: Never Used Second Hand Smoke Exposure: Yes service: No Current occupational status: retired Current occupational exposures/hazards: No Cognitive needs: Yes Hearing needs: No Vision needs: Yes Assessment & Plan Assessment & Plan (1) Type 2 diabetes mellitus with hyperglycemia, with long-term current use of insulin: Code(s): E11.65 - Type 2 diabetes mellitus with hyperglycemia; Z79.4 - 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 2= needs review? 3= comprehend keep point? 4= demonstrates understanding/ competent? NC= Not Covered Topics Learning Objective: Initial visit Initial or post srvc Initial or post srvc Initial or post srvc Initial or post srvc Initial or post srvc Post srvc Comments Pre Edu-assessment/plan Outcome or reassess Outcome or reassess Outcome or reassess Outcome or reassess Outcome or reassess Outcome or reassess Diabetes pathophysiology 1 Healthy eating 1 Being active 1 Taking medication 1 Monitoring glucose 1 Acute complication 1 Chronic complicated 1 Lifestyle and healthy coping 1 Diabetes distress in support 1 ?Diabetes pathophysiology: ?Defined diabetes med identify own type of diabetes; list 3 options for treating diabetes Healthy eating: ?Described effect of type, amount and ?timing of food on blood glucose; list 3 methods for planning meal Being active: ?State effect of exercise on blood glucose level Taking medication: ?State effect of diabetes medications on diabetes; name diabetes medications taking, action and side effects Monitoring glucose: ?Identify recommended blood glucose targets and personal target Acute complication: ?List symptoms and treatment of hyper and hypoglycemia, DKA, sick day guidelines and guidelines for severe weather or situations of crisis and diabetes supply manage Chronic complication: ?To find the relationship of blood glucose levels to long-term complications of diabetes in screening and preventative measures Lifestyle and healthy coping: ?Described lifestyle and healthy coping strategies to rule out diabetes self-management Diabetes to stress and support: ?Recognize Diabetes to stress and be able to identified support options Learning objectives: The patient was provided with verbal and written education on the following topics as outlined below. The patient met all learning objectives and was able to verbalize understanding and provide teach back of education topics discussed . The patient was provided with the opportunity to ask questions and all questions were answered. Patient Assessment Assess patient education level/literacy/barriers, patient's last A1c on 03/23/2025 12.9% Patient reported he had stopped Mounjaro 10 mg because he was unable to pick it up from the pharmacy. He has now restarted Mounjaro 2.5 mg weekly Instructed patient in the future if he is having difficulty getting diabetes medications he needs to call office. He also reports he has stopped taking Jardiance 10 mg because he read somewhere that he should not take Jardiance with metoprolol At today's visit I sent to patient I will clarify this with Dr. Cervantes if Dr. Cervatnes says it is okay to take the medication he agreed to restart Jardiance 10 mg Patient questions/concerns What is Diabetes? Pathophysiology How the body produces and uses insulin Identify type of DM Risk factors Signs of Diabetes Brief overview of Diabetes Management Monitoring blood sugar Following a meal plan Regular exercise Maintaining a healthy weight Taking medication as needed Members of the care team (PCP, RN, MA, RD, CDE, pension manager) Blood glucose monitoring When/how often to test Target blood sugar ranges Patient uses natue Manjit 3 sensor with reader, we were unable to download reader at today's visit due to errors with Manjit view Introduction to Nutrition Importance of healthy diet in managing DM Diet is personalized to individual preference Review patient?s regular diet/food preferences Who prepares meals/does food shopping/ Dining out?/ Barriers? How diet effects glucose Eating 3 balanced meals a day with small, healthy snacks between meals Review food groups Carbohydrates: What is a carbohydrate/Which food/food groups are considered carbohydrates Effect of carbohydrates on blood glucose Portion sizes Reading food labels Basic carb counting (if applicable per nursing assessment) Plate method Meal planning Recommendations: Follow plate method, consistent carbs and read nutritional labels. Smart Goal: Patient will identify foods in current meal plan that contain carbohydrates Educational Materials: The patient was provided with the following written educational materials: Planning Healthy Meals Handout Patient Response to instructions: Comprehension of Instructions: Fair Readiness to make changes: Contemplation How confident they feel about making changes: Positive Portions of this note were created using voice recognition software, please excuse any words or phrases that may have been misinterpreted. Patient Instructions: Incluir actividad diaria regular. ADA recomienda 30 minutos de ejercicio 5 d?as a la semana. P?rdida de peso, hable con el PCP o el cardi?logo antes de comenzar un nuevo plan. Mida el nivel de az?car en la candi seg?n las indicaciones; Ayuno y comida m?s soco de 2hpp. Observe las tendencias en los resultados. Utilice los resultados y eval?e c?mo los alimentos, la actividad f?[place] y los medicamentos afectan los resultados de az?car en la candi. Lleve el gluc?metro o CGM a la pr?xima visita. Conocer los medicamentos para la diabetes, mccord acci?n, los efectos secundarios, la eficacia, la toxicidad, la dosis prescrita, el momento y la frecuencia de administraci?n apropiados, el efecto de las dosis olvidadas y retrasadas y las instrucciones de almacenamiento, viaje y seguridad. T?cnicas de resoluci?n de problemas para el seguimiento de episodios de hipo/hiperglucemia y tratamientos. Reducir los comportamientos de reducci?n de riesgos, dejar de fumar, ex?menes regulares de ojos, pies y dentales. Coding Level of Care Code Est Pt Level 1 (59158) Diagnoses Type 2 diabetes mellitus with hyperglycemia, with long-term current use of insulin E11.65; Z79.4
--- OUTSIDE RECORDS SUMMARY | 2025-05-04 16:05 | XMS_ITS | Clinical Summary ---
Author Organization [facility] Address [address] [place] [address] [address] [place] [address] Phone Care Team Providers Care Toddler Teacher Name Role Phone Sophie Enrique MD Primary Care Provider [phone] Allergies Active Allergy Reactions Criticality Noted Date [...] mg/dl PVNMA 08/08/2020 us Rtama Conversion LAB [id number] LICITED RESULTS Final Result PVNMA from Last 3 Months or Most Recently Relevant to Health Maintenance Insurance [facility] ([id number]) [facility] ([id number]) Care Teams Toddler Teacher Relationship Specialty Start Date End Date Sophie Enrique MD [address] [place], [place] PCP - General Internal Medicine 01/19/21
--- OUTSIDE RECORDS SUMMARY | 2025-05-04 16:05 | XMS_ITS | Clinical Summary ---
Author Organization [facility] Address [address] [place] [address] Care Team Providers Care Product Management Analyst Name Role Phone Ani Sebastian Primary Care Provider [phone] Source Comments PLEASE NOTE, if this patient [...] Active blood-glucose meter monitoring kitIndications:DM (diabetes mellitus) as needed for blood glucose monitoring. 1 [...] (GLUCOPHAGE) 1,000 mg tabletIndications :DM (diabetes mellitus) Take 1 Tab by mouth 2 (two) [...] diagnostic (FREESTYLE TEST) stripsIndications :DM (diabetes mellitus) Use bid and prn. Dx: 250.02 100 Each 3 4 Active lancetsIndication s:DM (diabetes mellitus) Freestyle freedom lite. Use bid and prn. Dx: 250.02 100 Each 3 4 Active BD INSULIN PEN NEEDLE UF 31 X 5/16 USE FOUR TIMES DAILY. 150 Each 3 4 Active insulin glargine (LANTUS SOLOSTAR PEN) 100 unit/mL (3 mL) injectionIndicati ons:DM (diabetes mellitus) Inject 50 Units into the skin once daily. 10 Each 3 4 Active HUMALOG KWIKPEN 100 unit/mL injection INJECT VIA SLIDING SCALE THREE TIMES DAILY WITH MEALS. MAX 60 UNITS PER DAY 15 mL 11 4 Active Active Problems Problem Noted Date Diagnosed Date Hypomagnesemia 12/07/2013 Overview (12/07/2013): = 1.6 on 12/02/13 Dizziness 12/07/2013 Overview (12/07/2013): Likely due BPPV DM (diabetes mellitus) 08/07/2013 HTN (hypertension) 08/07/2013 GERD (gastroesophageal reflux [...] Treatment Not on file Insurance MEDICARE - [place] Care Teams Product Management Analyst Relationship Specialty Start Date End Date Ani Sebastian PA [address] [place] [address] PCP - General Internal Medicine 08/07/13
== END 2025-05-04 15:48 | disposition home or self-care (01) ==
LOC: HO.ENCR 14:41
PROVIDERS: PCP Internal Medicine; Visit Provider Registered Nurse Diabetes Educator
DX: E11.65 Type 2 diabetes mellitus with hyperglycemia (principal); Z79.4 Long term (current) use of insulin

== ENCOUNTER → 2025-05-04 14:41 | Outpatient (BNVA) | payer OTHER, SELFPAY | PROVIDERS: PCP Internal Medicine; Visit Provider Registered Nurse Diabetes Educator | DX: E11.65 Type 2 diabetes mellitus with hyperglycemia (principal); Z79.4 Long term (current) use of insulin | CPT/HCPCS: 99211 ==

== ENCOUNTER → 2025-06-01 23:59 | Outpatient (BNV) | payer OTHER, SELFPAY ==
--- NOTE | 2025-06-09 16:27 | MHC.OFFVIS ---
Intake Visit Reasons: Remote HF monitroing- Medtronic Allergies Penicillins Allergy (Intermediate, Verified 04/29/25 13:26) ITCHING metformin Adverse Reaction (Intermediate, Verified 04/29/25 13:26) renal function changes [facility] Medical History Gallstones Chronic kidney disease Foot abrasion, infected Type 2 diabetes mellitus Paresthesia Lumbar pain Sleep apnea Abnormal laboratory test Bibasilar crackles Encounter for interrogation of cardiac defibrillator HTN (hypertension) ROE (obstructive sleep apnea) CHF (congestive heart failure) Physical exam COVID-19 Bronchitis [id number]-71 syndrome Reactive airway disease Hospital discharge follow-up Bronchitis URI (upper respiratory infection) Tremors of nervous system Carpal tunnel syndrome Screen for colon cancer Physical exam Cellulitis Left leg swelling Visual hallucination Cough Acute respiratory disease Influenza A Right upper quadrant abdominal pain Hallucinations Hypoglycemia due to type 2 diabetes mellitus Chronic heart failure with preserved ejection fraction (HFpEF) Cardiomyopathy Acute on chronic systolic (congestive) heart failure Defibrillator discharge ROE (obstructive sleep apnea) Hypothyroidism Obesity due to excess calories ROE on CPAP Ischemic cardiomyopathy Atherosclerotic cardiovascular disease GERD (gastroesophageal reflux disease) Hypothyroidism Type 2 diabetes mellitus with hyperglycemia, with long-term current use of insulin Essential hypertension Chronic systolic (congestive) heart failure ICD (implantable cardioverter-defibrillator) in place CAD (coronary artery disease) Hyperlipidemia LDL goal <70 Dyspnea Insomnia Delusion of persecution Surgical History Epidermal inclusion cyst Lump of skin Hx of CABG (~2018) Status post aorto-coronary artery bypass graft Postop check H/O inguinal hernia repair History of tooth extraction History of open heart surgery History of bilateral cataract extraction Family History Father No problems noted. Mother CVD (cardiovascular disease) Social History Household Members: Spouse Housing: House Do you presently have visiting nurse or other home services: Yes (every 15 days) Alcohol intake: former Patient Tobacco Use Status: Former Tobacco user e-Cigarette/Vaping Use: Never Used Second Hand Smoke Exposure: Yes service: No Current occupational status: retired Current occupational exposures/hazards: No Cognitive needs: Yes Hearing needs: No Vision needs: Yes Office Procedures Cardiac Device Check Cardiac Device Check Details: Date of service- 06/01/2025; based on impedance data and physiological variables, there is no evidence of worsening congestive heart failure. [id number] Cardiac Device Interrogation, cardio physiologic monitor Procedure code (CPT) selection complete Assessment & Plan Assessment & Plan (1) ICD (implantable cardioverter-defibrillator) in place: Comment: Medtronic single chamber Code(s): Z95.810 - Presence of automatic (implantable) cardiac defibrillator Category: Medical (2) Ischemic cardiomyopathy: Code(s): I25.5 - Ischemic cardiomyopathy Category: Medical Plan x Coding Level of Care Code Procedure Only Diagnoses ICD (implantable cardioverter-defibrillator) in place Z95.810 Ischemic cardiomyopathy I25.5 CPT Codes Cardiac Device Check - Cardiac Device 15: [id number] Cardiac Device Interrogation, cardio physiologic monitor ([id number])
== END ==
PROVIDERS: PCP Internal Medicine; Visit Provider Internal Medicine
DX: I25.5 Ischemic cardiomyopathy (principal); Z95.810 Presence of automatic (implantable) cardiac defibrillator
CPT/HCPCS: 93297

== ENCOUNTER 2025-06-10 09:46 | Outpatient (AMB) | payer OTHER, SELFPAY ==
--- NOTE | 2025-06-10 10:06 | MHC.OFFVIS ---
Vital Signs 06/10/25 10:14 Height 5 ft 7 in Weight 204 lb BMI 31.9 BP 112/66 Blood Pressure Location Rt brachial Position Sitting Pulse 67 Intake Visit Reasons: re- discuss surgery Intake Note: This patient presents to [facility]. Pt c/o; reports no complaints. Crystalizer Operator Required: Yes Crystalizer Operator Language: Meter Shop Supervisor Services: Crystalizer Operator Present Crystalizer Operator Name: Juventino Information Interpreted: non-clinical & clinical Accompanied by: Family/Other Allergies Penicillins Allergy (Intermediate, Verified 06/10/25 10:16) ITCHING metformin Adverse Reaction (Intermediate, Verified 06/10/25 10:16) renal function changes Medication List - Last Reconciled 06/10/25 by Todd Trejo MD [adult diapers pull-ups Use 8 times per day] amlodipine 5 mg PO DAILY 90 days aspirin (Enteric Coated Aspirin) 81 mg PO DAILY bisacodyl (Dulcolax (bisacodyl)) 10 mg (2 x 5 mg) PO BEDTIME 2 days blood sugar diagnostic (FreeStyle Lite Strips) As directed 4 times a day blood-glucose meter (FreeStyle Lite Meter kit) As directed blood-glucose sensor (FreeStyle Manjit 3 Sensor device) As directed blood-glucose,federal appellate clerk,cont (FreeStyle Manjit 3 [place]) As directed CPAP (CPAP Machine/Device) As directed empagliflozin (Jardiance) 10 mg PO DAILY 30 days famotidine 20 mg PO BEDTIME 90 days tkfdyhmmmql-nzoimuvwy-qaxnetsl 100-62.5-25 mcg (Trelegy Ellipta) 1 inh inhalation DAILY 28 days furosemide 40 mg (2 x 20 mg) PO DAILY 90 days galantamine ER 16 mg PO QAM insulin aspart U-100 (Novolog FlexPen U-100 Insulin aspart) 26 units (0.26 mL) subcut TIDWMEAL 90 days insulin degludec (Tresiba FlexTouch U-200 insulin) 50 units (0.25 mL) subcut BEDTIME 90 days latex gloves (Latex Gloves, Large) Use 8 pairs per day losartan 25 mg PO DAILY 90 days meclizine 25 mg PO DAILY PRN 30 days metoprolol succinate ER 100 mg PO DAILY peg 3350-electrolytes 236-22.74-6.74 -5.86 gram (Golytely) 240 mL PO Q10M 1 day pen needle, diabetic 4 times a day As directed [personal wipes Use 8 per day prn] pramipexole ER 4.5 mg PO DAILY rosuvastatin 40 mg PO DAILY tirzepatide (Mounjaro) 2.5 mg (0.5 mL) subcut QWEEK 4 weeks underpads (Bed Underpads) Use 5 pads per day Ventolin HFA 90 mcg/actuation (albuterol sulfate) 2 puffs PO Q6H PRN NS HPI HPI re- discuss surgery: Details: He is here for follow-up because of his gallstones. He had been told in [place] that he had gallbladder disease and states that he had a drain placed last year I was able to review his CAT scan from [facility] done a few months ago and this did not seem to suggest gallbladder disease He denies any complaints currently. He says he feels well overall. He is going home to [place] in 2 weeks so wants to be sure that he is able to go. [facility] Medical History Gallstones Chronic kidney disease Foot abrasion, infected Type 2 diabetes mellitus Paresthesia Lumbar pain Sleep apnea Abnormal laboratory test Bibasilar crackles Encounter for interrogation of cardiac defibrillator HTN (hypertension) ROE (obstructive sleep apnea) CHF (congestive heart failure) Physical exam COVID-19 Bronchitis [id number] syndrome Reactive airway disease Hospital discharge follow-up Bronchitis URI (upper respiratory infection) Tremors of nervous system Carpal tunnel syndrome Screen for colon cancer Physical exam Cellulitis Left leg swelling Visual hallucination Cough Acute respiratory disease Influenza A Right upper quadrant abdominal pain Hallucinations Hypoglycemia due to type 2 diabetes mellitus Chronic heart failure with preserved ejection fraction (HFpEF) Cardiomyopathy Acute on chronic systolic (congestive) heart failure Defibrillator discharge ROE (obstructive sleep apnea) Hypothyroidism Obesity due to excess calories ROE on CPAP Ischemic cardiomyopathy Atherosclerotic cardiovascular disease GERD (gastroesophageal reflux disease) Hypothyroidism Type 2 diabetes mellitus with hyperglycemia, with long-term current use of insulin Essential hypertension Chronic systolic (congestive) heart failure ICD (implantable cardioverter-defibrillator) in place CAD (coronary artery disease) Hyperlipidemia LDL goal <70 Dyspnea Insomnia Delusion of persecution Surgical History Epidermal inclusion cyst Lump of skin Hx of CABG (~2018) Status post aorto-coronary artery bypass graft Postop check H/O inguinal hernia repair History of tooth extraction History of open heart surgery History of bilateral cataract extraction Family History Father No problems noted. Mother CVD (cardiovascular disease) Social History Household Members: Spouse Housing: House Do you presently have visiting nurse or other home services: Yes (every 15 days) Alcohol intake: former Patient Tobacco Use Status: Former Tobacco user e-Cigarette/Vaping Use: Never Used Second Hand Smoke Exposure: Yes service: No Current occupational status: retired Current occupational exposures/hazards: No Cognitive needs: Yes Hearing needs: No Vision needs: Yes Review of Systems Const Denies chills and Denies fever(s) Card Denies chest pain and Denies dyspnea Resp Denies cough and Denies dyspnea GI Denies hematochezia and Denies change in bowel habits Denies hematuria and Denies difficulty urinating Musc Denies back pain and Denies limited range of motion Neuro Denies focal weakness and Denies convulsions Psych Denies depression and Denies mood swings Physical Exam Vital Signs: Last Vital Signs Pulse 67 06/10/25 10:14 BP 112/66 06/10/25 10:14 BMI result Body Mass Index 31.9 Const General: comfortable and no acute distress Orientation/consciousness: patient oriented x3 Eyes Other: Anicteric Neck Neck: Yes no lymphadenopathy Resp Auscultation: clear to auscultation bilaterally Cardio Rhythm: regular rhythm GI Palpation (GI): Soft to palpation, nontender and no guarding Neuro General: patient oriented x3 Assessment & Plan Assessment & Plan (1) Gallstones: Code(s): K80.20 - Calculus of gallbladder without cholecystitis without obstruction Category: Medical Plan: He has known gallstones. He says that he really has had no problems with pain or any symptoms suggestive of gallbladder disease for several months now. I am going to order for a follow up CAT scan in view of his history as he said he used to have a drain in the past for his gallbladder I told him that he is safe to go to [place]. I will see him when he comes back so we can review his CAT scan and decide on cholecystectomy depending on the results He is comfortable with the plan and understands this. His was with him during the visit. Orders: Orders CT abdomen pelvis w IV con Today K80.20 - Calculus of gallbladder without cholecystitis without obstruction Blood Urea Nitrogen Today K80.20 - Calculus of gallbladder without cholecystitis without obstruction Creatinine Today K80.20 - Calculus of gallbladder without cholecystitis without obstruction Coding Level of Care Code Est Pt Level 3 (79078) Diagnoses Gallstones K80.20
[2025-06-10 10:14] VITALS: BP 112/66; PULSE 67; BMI 31.9
--- OUTSIDE RECORDS SUMMARY | 2025-06-10 11:04 | XMS_ITS | Clinical Summary ---
Author Organization [facility] Address [address] [place] [address] Care Team Providers Care Extension Agent Name Role Phone Ani Sebastian Primary Care Provider [phone] Source Comments PLEASE NOTE, if this patient [...] Treatment Not on file Insurance [place] Care Teams Extension Agent Relationship Specialty Start Date End Date Ani Sebastian PA [address] [place] [address] PCP - General Internal Medicine 08/07/13
== END 2025-06-10 10:33 | disposition home or self-care (01) ==
LOC: HO.HGS 09:46
PROVIDERS: PCP Internal Medicine; Visit Provider Surgery
DX: K80.20 Calculus of gallbladder without cholecystitis without obstruction (principal)
CPT/HCPCS: 99213

== ENCOUNTER 2025-06-10 09:46 | Outpatient (REF) | payer OTHER, SELFPAY ==
[2025-06-10 12:13] LABS: Blood Urea Nitrogen 38 mg/dL (9-16); Estimated Glomerular Filt Rate 38
== END 2025-06-10 09:47 | disposition home or self-care (01) ==
LOC: HO.LAB 09:46
PROVIDERS: PCP Internal Medicine; Visit Provider Surgery
DX: K80.20 Calculus of gallbladder without cholecystitis without obstruction (principal)
CPT/HCPCS: 36415; 82565; 84520; 99212

== ENCOUNTER 2025-06-17 13:26 | Outpatient (AMB) | payer OTHER, SELFPAY ==
--- NOTE | 2025-06-17 13:38 | A.OFFPC_ITS ---
Vital Signs 06/17/25 13:39 Height 5 ft 7 in Weight 202 lb 8 oz BMI 31.7 BP 126/60 Blood Pressure Location Rt brachial Position Sitting Respiration 18 Pulse 73 Pulse Source Pulse Oximeter Temp 97.1 F Temp Source Temporal Artery Scan Pulse Oximetry (%) 93 Oxygen Delivery Method Room Air Intake Visit Reasons: cough/phlegm Hardware Developer Required: No Accompanied by: Self / Same As Patient Allergies Penicillins Allergy (Intermediate, Verified 06/17/25 13:40) ITCHING metformin Adverse Reaction (Intermediate, Verified 06/17/25 13:40) renal function changes Medication List - Last Reconciled 06/17/25 by Jasmin Ford MD [adult diapers pull-ups Use 8 times per day] amlodipine 5 mg PO DAILY 90 days aspirin (Enteric Coated Aspirin) 81 mg PO DAILY bisacodyl (Dulcolax (bisacodyl)) 10 mg (2 x 5 mg) PO BEDTIME 2 days blood sugar diagnostic (FreeStyle Lite Strips) As directed 4 times a day blood-glucose meter (FreeStyle Lite Meter kit) As directed blood-glucose sensor (FreeStyle Manjit 3 Sensor device) As directed blood-glucose,margarine maker,cont (FreeStyle Manjit 3 [place]) As directed CPAP (CPAP Machine/Device) As directed empagliflozin (Jardiance) 10 mg PO DAILY 30 days famotidine 20 mg PO BEDTIME 90 days lzbkwhxntdl-pjzydpwfd-zfiilwod 100-62.5-25 mcg (Trelegy Ellipta) 1 inh inhalation DAILY 28 days furosemide 40 mg (2 x 20 mg) PO DAILY 90 days galantamine ER 16 mg PO QAM insulin aspart U-100 (Novolog FlexPen U-100 Insulin aspart) 26 units (0.26 mL) subcut TIDWMEAL 90 days insulin degludec (Tresiba FlexTouch U-200 insulin) 50 units (0.25 mL) subcut BEDTIME 90 days latex gloves (Latex Gloves, Large) Use 8 pairs per day losartan 25 mg PO DAILY 90 days meclizine 25 mg PO DAILY PRN 30 days metoprolol succinate ER 100 mg PO DAILY peg 3350-electrolytes 236-22.74-6.74 -5.86 gram (Golytely) 240 mL PO Q10M 1 day pen needle, diabetic 4 times a day As directed [personal wipes Use 8 per day prn] pramipexole ER 4.5 mg PO DAILY rosuvastatin 40 mg PO DAILY tirzepatide (Mounjaro) 2.5 mg (0.5 mL) subcut QWEEK 4 weeks underpads (Bed Underpads) Use 5 pads per day Ventolin HFA 90 mcg/actuation (albuterol sulfate) 2 puffs PO Q6H PRN NS Tobacco use date assessed: 06/17/25 Fall risk assessment: No Falls in past year Last assessed Fall Risk: 06/17/25 Dental Screening Dental Screen Date: 06/17/25 Did you have a dental visit in the last 12 months?: No Did you have a dental problem in the last 6 months where you did not have access to dental care?: No Was dental information given to patient?: Patient has dentist HPI HPI Comments History of Present Illness Details The patient is a 75-year-old male presenting with a cough. He has had a cough with phlegm for the past week, but denies any fever, chills, body pain, or headache. He reports that these symptoms occur every time it is cold. In the past, he has been treated with antibiotics, possibly amoxicillin, and has used Robitussin, which has provided relief. He recently ran out of Robitussin. [facility] Medical History Gallstones Chronic kidney disease Foot abrasion, infected Type 2 diabetes mellitus Paresthesia Lumbar pain Sleep apnea Abnormal laboratory test Bibasilar crackles Encounter for interrogation of cardiac defibrillator HTN (hypertension) ROE (obstructive sleep apnea) CHF (congestive heart failure) Physical exam COVID-19 Bronchitis [id number] syndrome Reactive airway disease Hospital discharge follow-up Bronchitis URI (upper respiratory infection) Tremors of nervous system Carpal tunnel syndrome Screen for colon cancer Physical exam Cellulitis Left leg swelling Visual hallucination Cough Acute respiratory disease Influenza A Right upper quadrant abdominal pain Hallucinations Hypoglycemia due to type 2 diabetes mellitus Chronic heart failure with preserved ejection fraction (HFpEF) Cardiomyopathy Acute on chronic systolic (congestive) heart failure Defibrillator discharge ROE (obstructive sleep apnea) Hypothyroidism Obesity due to excess calories ROE on CPAP Ischemic cardiomyopathy Atherosclerotic cardiovascular disease GERD (gastroesophageal reflux disease) Hypothyroidism Type 2 diabetes mellitus with hyperglycemia, with long-term current use of insulin Essential hypertension Chronic systolic (congestive) heart failure ICD (implantable cardioverter-defibrillator) in place CAD (coronary artery disease) Hyperlipidemia LDL goal <70 Dyspnea Insomnia Delusion of persecution Surgical History Epidermal inclusion cyst Lump of skin Hx of CABG (~2019) Status post aorto-coronary artery bypass graft Postop check H/O inguinal hernia repair History of tooth extraction History of open heart surgery History of bilateral cataract extraction Family History Father No problems noted. Mother CVD (cardiovascular disease) Social History Household Members: Spouse Housing: House Do you presently have visiting nurse or other home services: Yes (every 15 days) Alcohol intake: former Patient Tobacco Use Status: Former Tobacco user e-Cigarette/Vaping Use: Never Used Second Hand Smoke Exposure: Yes service: No Current occupational status: retired Current occupational exposures/hazards: No Cognitive needs: Yes Hearing needs: No Vision needs: Yes Questionnaire Thrive Questionnaire Date Thrive assessed: 12/09/24 I am a: Patient What is your living situation today?: I have a steady place to live Within the past 12 months, did the food you bought not last and you didn't have the money to get more?: I choose not to answer this question Within the past 12 months, did you worry whether your food would run out before you got money to buy more?: I choose not to answer this question Do you have trouble paying for medicines?: I choose not to answer this question Do you have trouble getting transportation to medical appointments?: I choose not to answer this question Do you have trouble paying your heating and electricity bill?: I choose not to answer this question Do you have trouble taking care of your child, family member or friend?: I choose not to answer this question Do you have trouble with day-to-day activities such as bathing, preparing meals, shopping, managing finances, etc.?: I choose not to answer this question Are you currently unemployed and looking for a job?: I choose not to answer this question Are you interested in more education?: I choose not to answer this question Please select the resources that you would like help with: None Currently or been in a relationship where the following occur: No concerns reported THRIVE Score: 0 RENNY-7 AMB Questionnaire RENNY-7 Date RENNY - 7 assessed: 03/30/25 Source: Developed by Drs. Godwin Street, Luisa Carlin, Lawrence Escamilla and colleagues, with an educational sonia from [employer]. Review of Systems Const Details: As per HPI. Physical exam (Primary Care) Vital Signs: Last Vital Signs Temp 97.1 F 06/17/25 13:39 Pulse 73 06/17/25 13:39 Resp 18 06/17/25 13:39 BP 126/60 06/17/25 13:39 Pulse Ox 93 06/17/25 13:39 Oxygen Delivery Method Room Air 06/17/25 13:39 BMI result Body Mass Index 31.7 Tobacco/Smoking Status: Tobacco use Status Tobacco use date assessed 06/17/25 06/17/25 13:48 Patient Tobacco Use Status Former Tobacco user 06/17/25 13:39 e-Cigarette/Vaping Use Never Used 06/17/25 13:39 Thrive Assessment: Date of Thrive Assessment Date Thrive assessed 12/09/24 06/17/25 13:39 Currently or been in a relationship where the following occur: No concerns reported Const Other: Pertinent findings are in BOLD GENERAL APPEARANCE NAD, activity normal for age, well developed/ well nourished, no cyanosis, pallor, or diaphoresis. EYES lids/conjunctiva normal. EARS/NOSE/THROAT Mucous membranes moist, nares normal, lips/teeth normal uvula midline without oral pharyngeal erythema, exudate or swelling TMs normal bilaterally. No lymphangitis/lymphedema. HEAD/NECK normocephalic atraumatic, no facial trauma, neck is supple. RESPIRATORY respiratory effort normal, speaks in full sentences, no tripod position, no accessory muscle use. Lungs clear to auscultation without rhonchi, wheezes, rales CARDIAC Regular rate and rhythm, no edema. ABDOMINAL Soft, ND/NT. No evidence of fluid wave. No pulsatile masses on exam, rebound tenderness, Garner sign or pain over Mcburney's point. MUSCLES/EXTREMITIES No abnormal range of motion, no swelling. SKIN Warm, pink and dry. No rashes, dermatoses, petechiae or lesions. NEUROLOGICAL Speech is clear and appropriate. Normal level of consciousness. Gait and coordination are normal. 5/5 strength in all extremities. PSYCH Normal mood and affect. Judgement/competence is appropriate Results AMB Hemoglobin A1c AMB Hemoglobin A1c 9.8 % Last Edit by OREN Berkowitz on 06/17/25 13:52 Results Reviewed Results Reviewed: Laboratory Last Values Hgb A1c (Clinic) 9.8 % (4.0-6.0) H 06/17/25 13:45 Coding Level of Care Code Est Pt Level 3 (63586) Diagnoses Flu-like symptoms R68.89 Time Spent (min) 30 Assessment & Plan Assessment & Plan (1) Flu-like symptoms: Code(s): R68.89 - Other general symptoms and signs Category: Medical Plan: - Prescribed Robitussin for symptomatic relief of cough. - Prescribed a 5-day course of azithromycin. - Patient instructed to take two pills on the first day, followed by one pill per day for the remainder of the course. Plan I have prescribed a 5-day course of azithromycin for the patient's cough, with instructions to take two pills on the first day and one pill daily thereafter. I will also provide a prescription for Robitussin for symptomatic relief. I expressed that this regimen will hopefully help his condition. Orders: Orders AMB Hemoglobin A1c Today E11.65 - Type 2 diabetes mellitus with hyperglycemia, Z79.4 - care home (current) use of insulin Medications: New dextromethorphan HBr (Robitussin Cough) 15 mg PO QID PRN 30 tabs 0RF cough azithromycin start on day 2 of therapy 250 mg PO DAILY 6 tabs 0RF 6 days
[2025-06-17 13:39] VITALS: BP 126/60; PULSE 73; RESP 18; TEMP 36.2; O2SAT 93; BMI 31.7
--- OUTSIDE RECORDS SUMMARY | 2025-06-17 16:43 | XMS_ITS | Clinical Summary ---
Author Organization [facility] Address [address] [place] [address] [address] [place] [address] Phone Care Team Providers Care Billing Representative Name Role Phone Sophie Enrique MD Primary Care Provider [phone] Allergies Active Allergy Reactions Criticality Noted Date [...] mg/dl PVNMA 08/08/2020 us Rtama Conversion LAB [id number] LICITED RESULTS Final Result PVNMA from Last 3 Months or Most Recently Relevant to Health Maintenance Insurance [facility] ([id number]) [facility] ([id number]) Care Teams Billing Representative Relationship Specialty Start Date End Date Sophie Enrique MD [address] [place], [place] PCP - General Internal Medicine 01/19/21
--- OUTSIDE RECORDS SUMMARY | 2025-06-17 16:43 | XMS_ITS | Clinical Summary ---
Author Organization [facility] Address [address] [place] [address] Care Team Providers Care Metal Fabricating Shop Helper Name Role Phone Ani Sebastian Primary Care Provider [phone] Source Comments PLEASE NOTE, if this patient [...] Treatment Not on file Insurance [place] Care Teams Metal Fabricating Shop Helper Relationship Specialty Start Date End Date Ani Sebastian PA [address] [place] [address] PCP - General Internal Medicine 08/07/13
== END 2025-06-17 14:50 | disposition home or self-care (01) ==
PROVIDERS: PCP Internal Medicine; Visit Provider Internal Medicine
DX: E11.65 Type 2 diabetes mellitus with hyperglycemia (principal); Z79.4 Long term (current) use of insulin; R68.89 Other general symptoms and signs

== ENCOUNTER → 2025-06-17 13:26 | Outpatient (BNVA) | payer OTHER, SELFPAY | PROVIDERS: PCP Internal Medicine; Visit Provider Internal Medicine | DX: E11.9 Type 2 diabetes mellitus without complications (principal); R68.89 Other general symptoms and signs; R05.9 Cough, unspecified | CPT/HCPCS: 83036; 99212 ==

== ENCOUNTER → 2025-07-06 09:23 | Outpatient (BNV) | payer OTHER, SELFPAY | PROVIDERS: PCP Internal Medicine; Visit Provider Internal Medicine | DX: I50.9 Heart failure, unspecified (principal); Z95.810 Presence of automatic (implantable) cardiac defibrillator | CPT/HCPCS: 93297 ==

== ENCOUNTER 2025-08-02 13:16 | Outpatient (AMB) | payer OTHER, SELFPAY ==
[2025-08-02 13:25] VITALS: BP 112/72; PULSE 68; TEMP 36.3; O2SAT 92; BMI 32.0
--- NOTE | 2025-08-02 13:25 | MHC.PC.OV ---
Vital Signs 08/02/25 13:25 Height 5 ft 7 in Weight 204 lb 4 oz BMI 32.0 BP 112/72 Blood Pressure Location Lt brachial Position Sitting Pulse 68 Pulse Source Pulse Oximeter Temp 97.3 F Temp Source Temporal Artery Scan Pulse Oximetry (%) 92 Oxygen Delivery Method Room Air Intake Visit Reasons: 4 months Death Claim Examiner Required: No Accompanied by: Self / Same As Patient Allergies Penicillins Allergy (Intermediate, Verified 08/02/25 13:34) ITCHING metformin Adverse Reaction (Intermediate, Verified 08/02/25 13:34) renal function changes Medication List - Last Reconciled 08/02/25 by Sophie Fulton MD [adult diapers pull-ups Use 8 times per day] amlodipine 5 mg PO DAILY 90 days aspirin (Enteric Coated Aspirin) 81 mg PO DAILY azithromycin 250 mg PO DAILY 6 days bisacodyl (Dulcolax (bisacodyl)) 10 mg (2 x 5 mg) PO BEDTIME 2 days blood sugar diagnostic (FreeStyle Lite Strips) As directed 4 times a day blood-glucose meter (FreeStyle Lite Meter kit) As directed blood-glucose sensor (FreeStyle Manjit 3 Sensor device) As directed blood-glucose,parcel wrapper,cont (FreeStyle Manjit 3 [place]) As directed CPAP (CPAP Machine/Device) As directed dextromethorphan HBr (Robitussin Cough) 15 mg PO QID PRN empagliflozin (Jardiance) 10 mg PO DAILY 30 days famotidine 20 mg PO BEDTIME 90 days mlhdwblzujv-rconypitg-lephsoyh 100-62.5-25 mcg (Trelegy Ellipta) 1 inh inhalation DAILY 28 days furosemide 40 mg (2 x 20 mg) PO DAILY 90 days galantamine ER 16 mg PO QAM insulin aspart U-100 (Novolog FlexPen U-100 Insulin aspart) 26 units (0.26 mL) subcut TIDWMEAL 90 days insulin degludec (Tresiba FlexTouch U-200 insulin) 50 units (0.25 mL) subcut BEDTIME 90 days latex gloves (Latex Gloves, Large) Use 8 pairs per day losartan 25 mg PO DAILY 90 days meclizine 25 mg PO DAILY PRN 30 days metoprolol succinate ER 100 mg PO DAILY peg 3350-electrolytes 236-22.74-6.74 -5.86 gram (Golytely) 240 mL PO Q10M 1 day pen needle, diabetic 4 times a day As directed [personal wipes Use 8 per day prn] pramipexole ER 4.5 mg PO DAILY rosuvastatin 40 mg PO DAILY tirzepatide (Mounjaro) 2.5 mg (0.5 mL) subcut QWEEK 4 weeks underpads (Bed Underpads) Use 5 pads per day Ventolin HFA 90 mcg/actuation (albuterol sulfate) 2 puffs PO Q6H PRN NS Tobacco use date assessed: 08/02/25 Last assessed Fall Risk: 08/02/25 Dental Screening Dental Screen Date: 08/02/25 Did you have a dental visit in the last 12 months?: Yes Did you have a dental problem in the last 6 months where you did not have access to dental care?: No Was dental information given to patient?: Patient has dentist HPI HPI Comments History of Present Illness Details This is a 75-year-old male with hypertension, diabetes mellitus type 2 on long-term current use of insulin, chronic systolic congestive heart failure, obstructive sleep apnea, chronic kidney disease stage 3 and hyperlipidemia that comes today for follow-up on his conditions. A1c still elevated from last month but has decreased. A1c goal is equal or less than 7%. Blood pressure within goal being less than 130/80. Last LDL was within goal being less than 70. Last GFR was 38 which has been stable and this is follow by Nephrology. Obstructive sleep apnea is follow by pulmonology and his compliant with his CPAP machine. Seems euvolemic. Has increased 2 lb in a month. Last ejection fraction was 48% in 2022 and this is follow by cardiology. [facility] Medical History Gallstones Chronic kidney disease Foot abrasion, infected Type 2 diabetes mellitus Paresthesia Lumbar pain Sleep apnea Abnormal laboratory test Bibasilar crackles Encounter for interrogation of cardiac defibrillator HTN (hypertension) ROE (obstructive sleep apnea) CHF (congestive heart failure) Physical exam COVID-19 Bronchitis [id number] syndrome Reactive airway disease Hospital discharge follow-up Bronchitis URI (upper respiratory infection) Tremors of nervous system Carpal tunnel syndrome Screen for colon cancer Physical exam Cellulitis Left leg swelling Visual hallucination Cough Acute respiratory disease Influenza A Right upper quadrant abdominal pain Hallucinations Hypoglycemia due to type 2 diabetes mellitus Chronic heart failure with preserved ejection fraction (HFpEF) Cardiomyopathy Acute on chronic systolic (congestive) heart failure Defibrillator discharge ROE (obstructive sleep apnea) Hypothyroidism Obesity due to excess calories ROE on CPAP Ischemic cardiomyopathy Atherosclerotic cardiovascular disease GERD (gastroesophageal reflux disease) Hypothyroidism Type 2 diabetes mellitus with hyperglycemia, with long-term current use of insulin Essential hypertension Chronic systolic (congestive) heart failure ICD (implantable cardioverter-defibrillator) in place CAD (coronary artery disease) Hyperlipidemia LDL goal <70 Dyspnea Insomnia Delusion of persecution Surgical History Epidermal inclusion cyst Lump of skin Hx of CABG (~2019) Status post aorto-coronary artery bypass graft Postop check H/O inguinal hernia repair History of tooth extraction History of open heart surgery History of bilateral cataract extraction Family History Father No problems noted. Mother CVD (cardiovascular disease) Social History Household Members: Spouse Housing: House Do you presently have visiting nurse or other home services: Yes (every 15 days) Alcohol intake: former Patient Tobacco Use Status: Former Tobacco user e-Cigarette/Vaping Use: Never Used Second Hand Smoke Exposure: Yes service: No Current occupational status: retired Current occupational exposures/hazards: No Cognitive needs: Yes Hearing needs: No Vision needs: Yes Questionnaire PHQ-9 Over the last 2 weeks, how often have you been bothered by any of the following problems? 1. Little interest or pleasure in doing things: not at all 2. Feeling down, depressed, or hopeless: not at all 3. Trouble falling or staying asleep, or sleeping too much: not at all 4. Feeling tired or having little energy: not at all 5. Poor appetite or overeating: not at all 6. Feeling bad about yourself - or that you are a failure or have let yourself or your family down: not at all 7. Trouble concentrating on things, such as reading the newspaper or watching television: not at all 8. Moving or speaking so slowly that other people could have noticed. Or the opposite - being so fidgety or restless that you have been moving around a lot more than usual: not at all 9. Thoughts that you would be better off or of hurting yourself in some way: not at all Total score: 0 Depression Screening Interpretation: Negative Depression Screening Done: Yes 90830 - PHQ-9 Billing: Yes Source: Developed by Drs. Godwin Street, Luisa Carlin, Lawrence Escamilla and colleagues, with an educational sonia from [employer]. Thrive Questionnaire Date Thrive assessed: 12/09/24 I am a: Patient What is your living situation today?: I have a steady place to live Within the past 12 months, did the food you bought not last and you didn't have the money to get more?: I choose not to answer this question Within the past 12 months, did you worry whether your food would run out before you got money to buy more?: I choose not to answer this question Do you have trouble paying for medicines?: I choose not to answer this question Do you have trouble getting transportation to medical appointments?: I choose not to answer this question Do you have trouble paying your heating and electricity bill?: I choose not to answer this question Do you have trouble taking care of your child, family member or friend?: I choose not to answer this question Do you have trouble with day-to-day activities such as bathing, preparing meals, shopping, managing finances, etc.?: I choose not to answer this question Are you currently unemployed and looking for a job?: I choose not to answer this question Are you interested in more education?: I choose not to answer this question Currently or been in a relationship where the following occur: No concerns reported THRIVE Score: 0 AUDIT C Alcohol Use Questionnaire (AUDIT-C) 1. How often do you have a drink containing alcohol?: Never 3. How often do you have six or more drinks on one occasion?: Never Total Score: 0 RENNY-7 AMB Questionnaire RENNY-7 Date RENNY - 7 assessed: 03/30/25 Feeling nervous, anxious, or on edge: 0 = Not at all Not being able to stop or control worryin = Not at all Worrying too much about different things: 0 = Not at all Trouble relaxin = Not at all Being so restless that it is hard to sit still: 0 = Not at all Becoming easily annoyed or irritable: 0 = Not at all Feeling afraid as if something awful might happen: 0 = Not at all Total RENNY-7 score (0-4 normal; 5-9 mild; 10-14 moderate; 15-21 severe): 0 Source: Developed by Drs. Godwin Street, Luisa Carlin, Lawrence Escamilla and colleagues, with an educational sonia from [employer]. Review of Systems Const All systems reviewed & are unremarkable except as noted in HPI and below Card Denies chest pain at rest, Denies chest pain with activity, Denies edema, Denies irregular heart rhythm, Denies claudication, Denies dyspnea, Denies dyspnea on exertion, Denies orthopnea, Denies paroxysmal nocturnal dyspnea and Denies slow heart rate Resp Denies cough, Denies dyspnea and Denies dyspnea on exertion Skin/Breast Denies bleeding lesions, Denies changing lesions and Denies rash Neuro Denies behavioral changes and Denies lack of coordination Psych Denies behavioral changes Physical exam (Primary Care) Vital Signs: Last Vital Signs Temp 97.3 F 08/02/25 13:25 Pulse 68 08/02/25 13:25 BP 112/72 08/02/25 13:25 Pulse Ox 92 08/02/25 13:25 Oxygen Delivery Method Room Air 08/02/25 13:25 BMI result Body Mass Index 32.0 BMI Assessment/Plan discussion: High BMI High, discussed plan: lifestyle, weight reduction, dietary and physical activity Tobacco/Smoking Status: Tobacco use Status Tobacco use date assessed 08/02/25 08/02/25 13:30 Patient Tobacco Use Status Former Tobacco user 08/02/25 13:30 e-Cigarette/Vaping Use Never Used 08/02/25 13:30 PHQ-9: PHQ-9 Score PHQ-9: Total score 0 08/02/25 13:30 Depression Screening Interpretation: Negative Thrive Assessment: Date of Thrive Assessment Date Thrive assessed 12/09/24 08/02/25 13:30 Currently or been in a relationship where the following occur: No concerns reported Resp Effort & Inspection: normal respiratory effort Auscultation: clear to auscultation bilaterally Cardio Jugular venous distension: no JVD Rate: regular rate Rhythm: regular rhythm Heart sounds: S1 normal heart sound present and S2 normal heart sound present Extrem General: Yes full ROM Coding Level of Care Code Add On Preventative Visit Only Diagnoses Essential hypertension I10 Chronic systolic (congestive) heart failure I50.22 Type 2 diabetes mellitus with hyperglycemia, with long-term current use of insulin E11.65; Z79.4 Hyperlipidemia LDL goal <70 E78.5 Stage 3b chronic kidney disease N18.32 Chronic kidney disease stage 3 subtype: stage 3b (GFR 30-44) ROE (obstructive sleep apnea) G47.33 Additional Codes PHQ-9 - 95572 - PHQ-9 Billing: Yes ([id number]) Time Spent (min) 22 Assessment & Plan Assessment & Plan (1) Essential hypertension: Code(s): I10 - Essential (primary) hypertension Category: Medical (2) Chronic systolic (congestive) heart failure: Code(s): I50.22 - Chronic systolic (congestive) heart failure Category: Medical (3) Type 2 diabetes mellitus with hyperglycemia, with long-term current use of insulin: Code(s): E11.65 - Type 2 diabetes mellitus with hyperglycemia; Z79.4 - assistant terminal manager (current) use of insulin Category: Medical (4) Hyperlipidemia LDL goal <70: Code(s): E78.5 - Hyperlipidemia, unspecified Category: Medical (5) CKD (chronic kidney disease) stage 3, GFR 30-59 ml/min: Code(s): N18.30 - Chronic kidney disease, stage 3 unspecified Category: Medical Qualifiers: Chronic kidney disease stage 3 subtype: stage 3b (GFR 30-44) Qualified Code(s): N18.32 - Chronic kidney disease, stage 3b (6) ROE (obstructive sleep apnea): Code(s): G47.33 - Obstructive sleep apnea (adult) (pediatric) Category: Medical Plan Continue same medications. A1c goal is equal or less than 7%. Blood pressure goal is equal or less than 130/80. LDL goal is less than 70. The goal is to not gain 5 lb in a week regarding his congestive heart failure. Be compliant with CPAP machine. Follow-up with endocrinology, pulmonology and Cardiology as well as Nephrology. Avoid NSAIDs.
== END 2025-08-02 13:48 | disposition home or self-care (01) ==
LOC: HO.HMCH 13:16
PROVIDERS: PCP Internal Medicine; Visit Provider Internal Medicine
DX: I50.22 Chronic systolic (congestive) heart failure (principal); E11.65 Type 2 diabetes mellitus with hyperglycemia; Z79.4 Long term (current) use of insulin; N18.32 Chronic kidney disease, stage 3b; E78.5 Hyperlipidemia, unspecified; I10 Essential (primary) hypertension; G47.33 Obstructive sleep apnea (adult) (pediatric)

== ENCOUNTER → 2025-08-02 13:16 | Outpatient (BNVA) | payer OTHER, SELFPAY | PROVIDERS: PCP Internal Medicine; Visit Provider Internal Medicine | DX: E11.22 Type 2 diabetes mellitus with diabetic chronic kidney disease (principal); I12.9 Hypertensive chronic kidney disease with stage 1 through stage 4 chronic kidney disease, or unspecified chronic kidney disease; N18.32 Chronic kidney disease, stage 3b; I50.22 Chronic systolic (congestive) heart failure; E11.65 Type 2 diabetes mellitus with hyperglycemia; E78.5 Hyperlipidemia, unspecified; G47.33 Obstructive sleep apnea (adult) (pediatric); Z79.4 Long term (current) use of insulin | CPT/HCPCS: 96127; 99212 ==